=== PATIENT | female | born 1935 | race Caucasian/White ===

== ENCOUNTER → 2016-05-07 | Outpatient (CLI) | payer BC ==
[~2016-05-07] MED LIST: ALBUAER19 INH; AMR2 PO; ASPCH81 PO; ATOR-26 PO; CARV6.252 PO; CLOP1TAB15 PO; COEN1CAP28 PO; EVER10TA PO; EXEM1TAB PO; EXEN0.048 SC; FRS/40 PO; GLC/500 PO; INSU1.2I SQ; ISOS120T5 PO; LEVO150T9 PO; LOSA1TAB38 PO; MELATAB2 PO; METH10TA6 PO; MULT-506 PO; NTRSLP4 SL; OMEP40CA PO; PENT400T2 PO; SENNTAB23 PO
[2016-05-07 13:54] LABS: BASO % 0.4 %; BASO ABS # 0.04 K/uL (0-0.2); COMPLETE YES; EOS % 1.9 %; HEMATOCRIT 38.6 % (37-47); IG% 0.1 %; LYMPH % 22.5 %; LYMPH ABS # 2.01 K/uL (1.2-3.4); MEAN CELL VOLUME 88.7 fL (80-100); MEAN CORPUSCULAR HEMOGLOBIN 28.5 pg (25-34); MEAN CORPUSCULAR HGB CONC 32.1 g/dl (32-36); NEUT % 70.1 %; PLATELET COUNT 236 K/uL (130-400); RED BLOOD COUNT 4.35 M/uL (4.2-5.4); WHITE BLOOD COUNT 8.95 K/uL (4.8-10.8)
[2016-05-07 14:00] LABS: INR 1.2 (0.9-1.1); PARTIAL THROMBOPLASTIN RATIO 1.1; PROTHROMBIN TIME (PATIENT) 13.2 SECONDS (9.0-12.0)
[2016-05-07 14:03] LABS: ESTIMATED AVERAGE GLUCOSE 197 mg/dl; HA1C FLAG Normal (Normal)
[2016-05-07 14:21] LABS: ALT/SGPT 23 U/L (12-78); BLOOD UREA NITROGEN 36 mg/dl (7-18); BUN/CREATININE RATIO 33.1 (10-20); CARBON DIOXIDE 29 mmol/L (21-32); CHLORIDE 102 mmol/L (98-107); CHOLESTEROL 94 mg/dl (0-200); CHOLESTEROL/HDL RATIO 2.7; GLUCOSE 100 mg/dl (70-99); HDL CHOLESTEROL 35 mg/dl; LDL CHOLESTEROL CALCULATED 35 mg/dl; SODIUM 141 mmol/L (136-145); TRIGLYCERIDES 118 mg/dl (0-150); URIC ACID 7.2 mg/dl (2.6-7.2); VERY LOW DENSITY LIPOPROT CALC 24 mg/dl
[2016-05-07 14:29] LABS: ALB/GLOB RATIO 1.1 (0.9-2); ALKALINE PHOSPHATASE 71 U/L (45-117); AST/SGOT 16 U/L (15-37); PHOSPHORUS 2.9 mg/dl (2.5-4.9)
[2016-05-08 10:36] LABS: C-REACTIVE PROT HIGHSEN 0.7 MG/L
--- NOTE | 2016-05-11 12:05 | CODING QUERY MEDICAL NECESSITY ---
CQSUPPORTING DIAGNOSIS NEEDED A supporting diagnosis is required for the test/procedure performed on this patient in order for us to be reimbursed by the patient's insurance. Please provide a supporting diagnosis for the following test/procedure listed below next to the test name along with your signature. *If there is no additional diagnosis for this patient that would support the following test/procedure please document that below next to the test/procedure. Test(s)/Procedure(s) that require a supporting diagnosis: DOS 05/07/16 C-REACTIVE PROTEIN HIGH SENSITIVITY TEST Provider Signature: Date: Thank you Bree Carlos Health Information Management Once completed, please kindly fax back to [phone] For questions please call [phone]
== END | disposition home or self-care (01) ==
LOC: C.LABBC 10:36
PROVIDERS: ATTEND Family Medicine
DX: Z01.818 Encounter for other preprocedural examination (principal); R73.09 Other abnormal glucose; E55.9 Vitamin D deficiency, unspecified; D51.9 Vitamin B12 deficiency anemia, unspecified; E11.9 Type 2 diabetes mellitus without complications

== ENCOUNTER → 2016-06-21 | Outpatient (CLI) | payer BC | END | disposition home or self-care (01) | LOC: C.LABSPEC 15:05 | PROVIDERS: ATTEND Family Medicine | DX: R31.9 Hematuria, unspecified (principal) ==

== ENCOUNTER → 2016-07-25 | Outpatient (CLI) | payer BC ==
[~2016-07-25] MED LIST changes: +OPTIRAY 320 IV PRN
--- NOTE | 2016-07-25 14:19 | DIAGNOSTIC IMAGING REPORT ---
CT OF THE ABDOMEN AND PELVIS WITH CONTRAST CLINICAL HISTORY: Breast cancer with bone metastases. COMPARISON STUDY: CT of the abdomen and pelvis and whole-body bone scan January 18, 2016. TECHNIQUE: Following IV administration of 94 mL of Optiray-320, axial images of the abdomen and pelvis were obtained from the lung bases to the proximal femurs. Images were reviewed in the axial, sagittal, and coronal planes. IV contrast was administered without complication. Oral contrast was administered. FINDINGS: The chest will be reported separately. The liver, spleen, adrenal glands, kidneys and pancreas are unremarkable. There is no evidence for a bowel obstruction. There is sigmoid diverticulosis without evidence for acute diverticulitis. There is a moderate amount of stool within the colon. No ascites is present. A 2.1 cm lytic lesion with thin sclerotic rim within the left iliac bone is similar to exam of January 18, 2016. This is new since a CT of November 05, 2012. A few additional scattered tiny sclerotic foci remain unchanged. No new bony lesions are identified. IMPRESSION: 1. No change in the 2.1 cm lytic left iliac bone lesion since CT of January 18, 2016. This suggests a metastasis. A few additional tiny sclerotic lesions are unchanged and remain indeterminate. 2. No evidence for progressive metastatic disease within the abdomen or pelvis. Electronically signed by: Nash Ambriz M.D. 07/25/2016 2:16 PM Dictated Date/Time: 07/25/2016 2:06 PM
--- NOTE | 2016-07-25 14:24 | DIAGNOSTIC IMAGING REPORT ---
CT OF THE CHEST WITH IV CONTRAST CLINICAL HISTORY: Metastatic breast carcinoma. COMPARISON STUDY: 01/18/2016 TECHNIQUE: Following the IV administration of 94 mL of Optiray-320, CT of the thorax was performed from the thoracic inlet to the lung bases. Images are reviewed in the axial, sagittal, and coronal planes. IV contrast was administered without complication. CT DOSE: 996.49 mGy.cm FINDINGS: Thyroid: Imaged portions of the thyroid gland are normal in appearance. Thoracic aorta: The thoracic aorta is normal in course and caliber, noting standard 3-vessel arch anatomy. No aneurysm or dissection is seen. Pulmonary vasculature: The pulmonary trunk is normal in caliber. There are no central filling defects identified to suggest pulmonary embolus. Note that this examination was not protocoled for the evaluation of pulmonary emboli. HEART: There are coronary artery calcifications present. Lungs and pleural spaces: There is a stable 7 mm right middle lobe opacity which is flat on the reformatted images. This abuts the minor fissure. This is not felt to be of clinical significance. There is no focal pulmonary consolidation. There is minor basilar atelectatic change. There are few stable calcified granulomas. Mediastinum: Mediastinal lymph nodes remain at the upper limits of normal in size Rae: There is no pathologic hilar adenopathy Axilla: There are postsurgical changes of a left mastectomy. There is no axillary lymphadenopathy Upper abdomen: Partially visualized upper abdominal viscera is within normal limits. Skeletal structures: There is a stable mixed lytic and sclerotic lesion of the right third rib. There is a stable L1 vertebral body hemangioma IMPRESSION: 1. Stable mixed lytic and blastic right third rib lesion. 2. No change the preceding study. No evidence of progressive metastatic disease. Electronically signed by: Tanner Boss M.D. 07/25/2016 2:22 PM Dictated Date/Time: 07/25/2016 2:15 PM
--- NOTE | 2016-07-26 08:14 | DIAGNOSTIC IMAGING REPORT ---
WHOLE-BODY NUCLEAR BONE SCAN CLINICAL HISTORY: Breast cancer. Known osseous metastatic disease. COMPARISON STUDY: Nuclear bone scan dated 01/18/2016. CT scan of the chest, abdomen, and pelvis dated 07/25/2016. TECHNIQUE: Three hours following the IV administration of 27.2 mCi of technetium 99m MDP, whole body nuclear bone scan was performed in the anterior and posterior projections. FINDINGS: A right third rib lesion remains intensely tracer avid. A subtle lesion is also identified within the left iliac wing. No additional foci of abnormal osseous deposition identified typical in appearance for bony metastatic disease. Typically degenerative uptake is identified in the shoulders, sternoclavicular joints, hips, knees, and ankles. Low level spinal activity is also typical in appearance for degenerative change. There is expected excreted activity within the renal collecting system and bladder. A photopenic defect overlying the left lower chest likely representing a breast prosthesis. IMPRESSION: 1. A right third rib lesion remains intensely tracer avid. 2. An additional tracer avid lesion is seen within the left iliac wing. 3. No additional foci of metastatic activity are clearly visualized. Electronically signed by: Jimmie Brand M.D. 07/26/2016 8:12 AM Dictated Date/Time: 07/26/2016 7:59 AM
== END | disposition home or self-care (01) ==
LOC: C.CTS 11:08
PROVIDERS: ATTEND Internal Medicine Hematology & Oncology
DX: C50.911 Malignant neoplasm of unspecified site of right female breast (principal); C79.51 Secondary malignant neoplasm of bone

== ENCOUNTER → 2016-11-15 | Outpatient (CLI) | payer BC ==
[~2016-11-15] MED LIST changes: -OPTIRAY 320 IV PRN
[2016-11-15 13:21] LABS: BASO % 0.4 %; BASO ABS # 0.04 K/uL (0-0.2); COMPLETE YES; EOS % 2.1 %; HEMATOCRIT 34.2 % (37-47); IG% 0.1 %; LYMPH % 22.1 %; LYMPH ABS # 2.16 K/uL (1.2-3.4); MEAN CELL VOLUME 93.2 fL (80-100); MEAN CORPUSCULAR HEMOGLOBIN 30.5 pg (25-34); MEAN CORPUSCULAR HGB CONC 32.7 g/dl (32-36); MONO % 5.1 %; NEUT % 70.2 %; PLATELET COUNT 270 K/uL (130-400); RED BLOOD COUNT 3.67 M/uL (4.2-5.4); WHITE BLOOD COUNT 9.79 K/uL (4.8-10.8)
[2016-11-15 14:02] LABS: ESTIMATED AVERAGE GLUCOSE 171 mg/dl; HA1C FLAG Normal (Normal)
[2016-11-15 14:41] LABS: ALT/SGPT 22 U/L (12-78); BLOOD UREA NITROGEN 28 mg/dl (7-18); BUN/CREATININE RATIO 20.2 (10-20); CALCIUM 8.9 mg/dl (8.5-10.1); CARBON DIOXIDE 28 mmol/L (21-32); CHLORIDE 101 mmol/L (98-107); CHOLESTEROL 75 mg/dl (0-200); GLUCOSE 276 mg/dl (70-99); POTASSIUM 4.6 mmol/L (3.5-5.1); SODIUM 136 mmol/L (136-145); TRIGLYCERIDES 127 mg/dl (0-150); URIC ACID 8.1 mg/dl (2.6-7.2); VERY LOW DENSITY LIPOPROT CALC 25 mg/dl
[2016-11-15 14:50] LABS: ALKALINE PHOSPHATASE 81 U/L (45-117); AST/SGOT 10 U/L (15-37); CHOLESTEROL/HDL RATIO 2.6; HDL CHOLESTEROL 29 mg/dl; LDL CHOLESTEROL CALCULATED 21 mg/dl; TOTAL IRON BINDING CAPACITY 305 mcg/dl (250-450)
== END | disposition home or self-care (01) ==
LOC: C.LABBC 09:22
PROVIDERS: ATTEND Family Medicine
DX: R73.09 Other abnormal glucose (principal); E55.9 Vitamin D deficiency, unspecified; D51.9 Vitamin B12 deficiency anemia, unspecified; E78.9 Disorder of lipoprotein metabolism, unspecified; R53.83 Other fatigue

== ENCOUNTER → 2017-02-04 | Outpatient (CLI) | payer BC ==
--- NOTE | 2017-02-05 07:47 | MAMMOGRAPHY REPORT ---
UNILATERAL RIGHT DIGITAL SCREENING MAMMOGRAM TOMOSYNTHESIS WITH CAD: 02/04/2017 CLINICAL HISTORY: Asymptomatic. Personal history of breast cancer. TECHNIQUE: Right breast tomosynthesis in addition to standard 2D mammography was performed. Current jennie juarez was also evaluated with a Computer Aided Detection (CAD) system. COMPARISON: Comparison is made to exams dated: 02/02/2016 mammogram, 01/28/2015 mammogram, 01/27/2014 mammogram, 01/26/2013 mammogram, 01/24/2012 mammogram, and 01/22/2011 mammogram - [facility]. BREAST COMPOSITION: The tissue of the right breast is extremely dense, which lowers the sensitivity of mammography. FINDINGS: There are mild vascular calcifications and other scattered stable punctate and coarse calc ifications in the right breast. No new suspicious mass, architectural distortion or cluster of microc alcifications is seen. IMPRESSION: ACR BI-RADS CATEGORY 2: BENIGN There is no mammographic evidence of malignancy. A 1 year screening mammogram is recommended. The pa tient will receive written notification of the results. Approximately 10% of breast cancers are not detected with mammography. A negative mammographic report should not delay biopsy if a clinically suggestive mass is present. Vero Jordan M.D. ay/:02/04/2017 16:57:26 Plate Slitter And Inspector: Arlene ARCE)(Sanchez), [facility] letter sent: Normal 1/2 BI-RADS Code: ACR BI-RADS Category 2: Benign
== END | disposition home or self-care (01) ==
LOC: C.MAMM 09:32
PROVIDERS: ATTEND Internal Medicine Hematology & Oncology
DX: Z12.31 Encounter for screening mammogram for malignant neoplasm of breast (principal); Z85.3 Personal history of malignant neoplasm of breast

== ENCOUNTER → 2017-02-18 | Outpatient (CLI) | payer BC ==
--- NOTE | 2017-02-18 13:39 | DIAGNOSTIC IMAGING REPORT ---
BONE SCAN WHOLE BODY CLINICAL HISTORY: BREAST CANCER COMPARISON STUDY: 07/25/2016 FINDINGS: The patient was injected with 27 mCi of technetium 99m MDP. Three-hour delayed whole body images were acquired. There are persistent foci of increased activity within the left supra-acetabular region. There is a focus of increased activity within the right posterior chest, likely localized to the right third rib although a medial scapular lesion could appear similar. Foci of increased activity within the right medial arm are felt to represent soft tissue activity secondary to tracer activity within either with static or venous structures. IMPRESSION: Persistent foci of increased activity within the right chest wall (third rib level), and left supra-acetabular region. The findings are consistent with metastatic disease, similar to the preceding examination. Electronically signed by: Tanner Boss M.D. 02/18/2017 1:37 PM Dictated Date/Time: 02/18/2017 1:32 PM
== END | disposition home or self-care (01) ==
LOC: C.NUCL 08:57
PROVIDERS: ATTEND Internal Medicine Hematology & Oncology
DX: C50.911 Malignant neoplasm of unspecified site of right female breast (principal)

== ENCOUNTER → 2017-02-19 | Outpatient (CLI) | payer BC ==
[~2017-02-19] MED LIST changes: +OPTIRAY 320 IV PRN
--- NOTE | 2017-02-19 16:55 | DIAGNOSTIC IMAGING REPORT ---
(CHEST) THORAX WITH CT DOSE: HISTORY: Breast carcinoma BREAST CA TECHNIQUE: Multiaxial CT images of the chest were performed following the intravenous administration of contrast. A dose lowering technique was utilized adhering to the principles of ALARA. COMPARISON: 07/25/2016 FINDINGS: Stable mixed lytic or blastic lesion right third rib. This shows no change in extent size or configuration. There are no new or interval findings. There are degenerative changes of the thoracic spine. Minimal scattered micronodularity of the right as well as left chest are noted. Findings are unchanged. There is no evidence for new interval or progressive nodular process. There is no significant mediastinal or hilar adenopathy. Limited evaluation the upper abdomen is unremarkable. IMPRESSION: 1. Unchanged metastatic deposit right third rib. 2. Unchanging micronodule of the the lungs. 3. Otherwise negative study. The above report was generated using voice recognition software. It may contain grammatical, syntax or spelling errors. Electronically signed by: Williams Deal M.D. 02/19/2017 4:54 PM Dictated Date/Time: 02/19/2017 4:27 PM
--- NOTE | 2017-02-19 19:00 | DIAGNOSTIC IMAGING REPORT ---
CT OF THE ABDOMEN AND PELVIS WITH CONTRAST CLINICAL HISTORY: Breast cancer. Follow-up study. COMPARISON STUDY: CT of the abdomen and pelvis July 25, 2016. TECHNIQUE: Following IV administration of 116 mL of Optiray-320, axial images of the abdomen and pelvis were obtained from the lung bases to the proximal femurs. Images were reviewed in the axial, sagittal, and coronal planes. IV contrast was administered without complication. A dose lowering technique was utilized adhering to the principles of ALARA. Oral contrast was administered. CT DOSE: 1333.81 mGy.cm FINDINGS: The chest will be reported separately. The liver, some spleen, adrenal glands, kidneys and pancreas are unremarkable. There is no biliary or pancreatic ductal dictation. There is extensive atherosclerotic plaque of the abdominal aorta. There is suspected adenomyomatosis of the gallbladder fundus. No enlarged abdominal or pelvic lymph nodes are present. There is no evidence for a bowel obstruction. There is sigmoid diverticulosis without evidence for acute diverticulitis. A 2.1 cm lytic lesion with sclerotic rim within the left iliac bone remains unchanged and prior exam of July 25, 2016. No new osseous lesions are present. A few additional tiny sclerotic lesions are unchanged. IMPRESSION: 1. No change in a 2.1 cm left iliac bone lesion. This may reflect treated metastatic disease. 2. No evidence for progressive metastatic disease within the abdomen or pelvis. Electronically signed by: Nash Ambriz M.D. 02/19/2017 6:59 PM Dictated Date/Time: 02/19/2017 4:36 PM
== END | disposition home or self-care (01) ==
LOC: C.CTS 15:23
PROVIDERS: ATTEND Internal Medicine Hematology & Oncology
DX: C50.911 Malignant neoplasm of unspecified site of right female breast (principal)

== ENCOUNTER → 2017-04-18 | Outpatient (CLI) | payer BC ==
[~2017-04-18] MED LIST changes: -OPTIRAY 320 IV PRN
[2017-04-18 12:05] LABS: URIC ACID 10.8 mg/dl (2.6-7.2)
[2017-04-18 12:24] LABS: HEMOGLOBIN A1C 8.3 % (4.5-5.6)
== END | disposition home or self-care (01) ==
LOC: C.LAB 09:09
PROVIDERS: ATTEND Family Medicine
DX: E88.81 Metabolic syndrome and other insulin resistance (principal); E55.9 Vitamin D deficiency, unspecified; D51.9 Vitamin B12 deficiency anemia, unspecified; E78.9 Disorder of lipoprotein metabolism, unspecified; R53.83 Other fatigue

== ENCOUNTER 2020-05-13 14:01 | Inpatient (IN) ==
--- NOTE | 2020-05-13 16:29 | Emergency Department Note ---
History of Present Illness General Chief complaint: Shortness of Breath/Dyspnea Stated complaint: SOB STOMACH PAIN Time Seen by Provider: 05/13/20 15:54 Source: patient Mode of arrival: ambulatory Limitations: no limitations History of Present Illness Provider complaint: Shortness of breath, increasing cough, urinary symptoms Onset (ago): week(s) 3 Radiation: non-radiation Severity: moderate Pain Consistency: + colicky Relieved By: + none Exacerbated By: + none Associated symptoms: + cough and + shortness of breath; no chest pain, no fever/chills, no loss of appetite and no nausea/vomiting Treatments prior to arrival: none This an 84-year-old female presents emergency department with several complain ts. Patient states over the last 3 weeks she has had worsening shortness of breath, particular with exertion as well as an increased cough. Patient states she initially thought it was related to choking while drinking a cup of coffee several weeks ago and irritating her upper airways. She states she has had prior issues with choking. She states the exertion has been worse, no other change with position. She denies fevers or chills. Denies any change in the color of her sputum. Patient denies any coming chest pain or palpitations. Patient states she is had some intermittent lower abdominal pressure, dysuria, and residual urinary cloudiness. Patient states last week she was started on a course of antibiotics which she finished the beginning of this week, however she states she still has residual symptoms. Patient does have a prior history of breast cancer. Patient denies any concern for sick contact or exposure to coronavirus. Patient denies any change in her medications. Pt seen during a time of high acuity and national emergency pandemic while wearing PPE. Home Medications Medication Instructions Recorded Confirmed Type Xarelto 15 mg PO QPM #30 tab 12/02/17 05/13/20 Rx albuterol sulfate 1.25 mg INH Q6H PRN #90 ml 12/02/17 05/13/20 Rx clopidogrel 75 mg tablet 75 mg PO QPM #90 tab 12/11/18 05/13/20 History fluticasone 232 mcg-salmeterol 14 1 puffs INHALATION QPM #1 ea 12/11/18 05/13/20 History mcg/actuation breath activated powdr multivitamin 1 tab PO DAILY 12/11/18 05/13/20 History pramipexole 0.25 mg tablet 0.25 mg PO QPM tab 12/11/18 05/13/20 History albuterol sulfate 90 mcg/actuation 2 puffs INHALATION Q4H PRN #1 gm 02/18/19 05/13/20 History aerosol inhaler coenzyme Q10 100 mg capsule 100 mg PO DAILY cap 02/18/19 05/13/20 History denosumab 120 mg/1.7 mL (70 mg/mL) 120 mg SUBCUT MONTHLY ml 02/18/19 05/13/20 History subcutaneous solution docusate sodium 100 mg capsule 100 mg PO DAILY cap 02/18/19 05/13/20 History exemestane 25 mg tablet 25 mg PO QAM tab 02/18/19 05/13/20 History insulin aspart U-100 100 unit/mL See Rx Instructions SUBCUT 02/18/19 05/13/20 History subcutaneous solution .COMPLEX ml isosorbide mononitrate 120 mg 120 mg PO QAM #90 tab 02/18/19 05/13/20 History tablet,extended release 24 hr levothyroxine 125 mcg tablet 125 mcg PO QAM #90 tab 02/18/19 05/13/20 History losartan 100 mg tablet 100 mg PO QAM #90 tab 02/18/19 05/13/20 History melatonin 5 mg capsule 5 mg PO QPM PRN cap 02/18/19 05/13/20 History nebivolol 10 mg tablet 10 mg PO QPM tab 02/18/19 05/13/20 History nitroglycerin 0.4 mg sublingual 0.4 mg SL Q5M PRN #25 tab 02/18/19 05/13/20 History tablet cholecalciferol (vitamin D3) 25 1,000 units PO DAILY 02/23/19 05/13/20 History mcg (1,000 unit) capsule triamcinolone acetonide 0.1 % 1 appln TOP DAILY 06/08/19 05/13/20 History lotion spironolactone 25 mg tablet 25 mg PO DAILY tab 08/19/19 05/13/20 History clobetasol 0.05 % shampoo 1 appln TOP DAILY PRN 10/07/19 05/13/20 History clobetasol 0.05 % topical cream 1 appln TOP UD 10/07/19 05/13/20 History bumetanide 2 mg tablet 2 mg PO DAILY 01/01/20 05/13/20 History glimepiride 4 mg tablet 4 mg PO BID tab 01/01/20 05/13/20 History ketoconazole 2 % shampoo 1 applic TOPICAL DAILY ml 01/01/20 05/13/20 History pantoprazole 40 mg tablet,delayed 40 mg PO DAILY 02/10/20 05/13/20 History release sucralfate 100 mg/mL oral 10 ml PO UD PRN ml 02/10/20 05/13/20 History suspension Calcium Carbonate-Mag Chloride 1 tab PO BID 05/13/20 05/13/20 History atorvastatin [Lipitor] 40 mg PO DAILY 05/13/20 05/13/20 History fluticasone propionate [Flonase 1 sprays INTNAS BID PRN 05/13/20 05/13/20 History Allergy Relief] Allergies Allergy/AdvReac Type Severity Reaction Status Date / Time cat dander Allergy Intermediate itching Verified 05/13/20 17:05 eyes, blisters pseudoephedrine AdvReac Intermediate Hallucinati Verified 05/13/20 17:05 ons Past Med/Surg History Medical History Acute kidney injury Asthma USES PRN INH BID ON AVERAGE Atrial fibrillation DX 2017 - ON XARELTO - FOLLOWS W/ DR. TIPTON Atrial flutter with rapid ventricular response Breast cancer REPORTS RECENT REOCCURRENCE OF BREAST CANCER TO RT BREAST 2006 - LEFT MASTECTOMY + CHEMO/RADIATION Chronic anticoagulation Chronic kidney disease, stage III (moderate) DM type 2 (diabetes mellitus, type 2) IDDM - pt has insulin pump Hyperlipidemia Hypertension Hypothyroidism Osteoarthritis Port-A-Cath in place Rhabdomyolysis Urinary leakage Surgical History History of appendectomy History of breast biopsy History of cardiac cath 2017 - CP - [facility] - 2 STENTS - FOLLOWS W/ DR. TIPTON History of carpal tunnel release of both wrists History of colonoscopy History of heart artery stent X 2 (2017) History of left mastectomy pt denies limb restrictions History of tonsillectomy and adenoidectomy History of total abdominal hysterectomy and bilateral salpingo-oophorectomy Family History Father Myocardial infarction Other No family history of adverse response to anesthesia Social History Smoking Status: Never smoker Second Hand Exposure: Yes (FATHER SMOKED); Hx Alcohol Use: No Hx Substance Use: No Preferred Language: Algerian Communication Ability: Effective Account Officer Required: No Beliefs That Will Affect Care: None marital status: / Current Living Situation: Alone Feels Safe at Home: Yes Safety Concerns: Feels Safe At This Time Assistive Devices: Glasses Assistive Devices Comment: lower partial Review of Systems See HPI for pertinent positives & negatives. and A total of 10 systems reviewed and were otherwise negative Physical Exam Vital Signs Vital Signs - 24 hr 05/13/20 14:14 05/13/20 14:17 05/13/20 16:12 Temperature 36.6 C Temperature Source Temporal Artery Scan Pulse Rate 75 71 Pulse Rate [Apical] Pulse Rate [Exercises] Pulse Rate [Recovery] Pulse Rate [Resting] Pulse Rate from SpO2 Sensor 71 Respiratory Rate 20 17 Respiratory Rate [Exercises] Respiratory Rate [Recovery] Respiratory Rate [Resting] Respiratory Effort / Characteristics Non-Labored Spontaneous Non-Labored Respiratory Depth Normal Normal Respiratory Pattern Regular Blood Pressure 175/70 H 150/71 H Blood Pressure Mean 105 97 Pulse Oximetry 97 98 Pulse Oximetry [Exercises] Pulse Oximetry [Recovery] Pulse Oximetry [Resting] Oxygen Delivery Method Room Air Room Air Sepsis Recent Fever Within 48 Hours No Sepsis New/Unexplained Change in Mental Status No Sepsis Action Taken by Nursing No Action Required 05/13/20 16:14 05/13/20 16:18 05/13/20 16:30 Temperature Temperature Source Pulse Rate 71 69 Pulse Rate [Apical] Pulse Rate [Exercises] Pulse Rate [Recovery] Pulse Rate [Resting] Pulse Rate from SpO2 Sensor 72 69 Respiratory Rate 16 17 Respiratory Rate [Exercises] Respiratory Rate [Recovery] Respiratory Rate [Resting] Respiratory Effort / Characteristics Respiratory Depth Respiratory Pattern Blood Pressure 151/95 H Blood Pressure Mean 113 Pulse Oximetry 97 98 96 Pulse Oximetry [Exercises] Pulse Oximetry [Recovery] Pulse Oximetry [Resting] Oxygen Delivery Method Room Air Sepsis Recent Fever Within 48 Hours Sepsis New/Unexplained Change in Mental Status Sepsis Action Taken by Nursing 05/13/20 17:10 05/13/20 17:30 05/13/20 18:08 Temperature Temperature Source Pulse Rate 73 67 Pulse Rate [Apical] Pulse Rate [Exercises] 80 Pulse Rate [Recovery] 78 Pulse Rate [Resting] 72 Pulse Rate from SpO2 Sensor Respiratory Rate 18 21 Respiratory Rate [Exercises] 28 H Respiratory Rate [Recovery] 22 Respiratory Rate [Resting] 20 Respiratory Effort / Characteristics Respiratory Depth Respiratory Pattern Blood Pressure Blood Pressure Mean Pulse Oximetry Pulse Oximetry [Exercises] 94 Pulse Oximetry [Recovery] 93 Pulse Oximetry [Resting] 96 Oxygen Delivery Method Room Air Sepsis Recent Fever Within 48 Hours Sepsis New/Unexplained Change in Mental Status Sepsis Action Taken by Nursing 05/13/20 18:12 05/13/20 18:24 05/13/20 18:26 Temperature Temperature Source Pulse Rate 74 74 Pulse Rate [Apical] 78 Pulse Rate [Exercises] Pulse Rate [Recovery] Pulse Rate [Resting] Pulse Rate from SpO2 Sensor 75 75 Respiratory Rate 20 16 21 Respiratory Rate [Exercises] Respiratory Rate [Recovery] Respiratory Rate [Resting] Respiratory Effort / Characteristics Non-Labored Spontaneous Respiratory Depth Respiratory Pattern Blood Pressure 149/89 H Blood Pressure Mean 109 Pulse Oximetry 97 96 94 Pulse Oximetry [Exercises] Pulse Oximetry [Recovery] Pulse Oximetry [Resting] Oxygen Delivery Method Room Air Sepsis Recent Fever Within 48 Hours Sepsis New/Unexplained Change in Mental Status Sepsis Action Taken by Nursing GENERAL: alert, well appearing, well nourished, no distress, non-toxic EYE EXAM: normal conjunctiva, PERRL and EOM's grossly intact OROPHARYNX: no exudate, no erythema, lips, buccal mucosa, and tongue normal and mucous membranes are moist NECK: supple, no nuchal rigidity, no adenopathy, non-tender LUNGS: Clear to auscultation. Normal chest wall mechanics, no w/r/r HEART: no murmurs, S1 normal and S2 normal ABDOMEN: abdomen soft, non-tender, normo-active bowel sounds, no masses, no rebound or guarding. BACK: Back is symmetrical on inspection and there is no deformity, no midline tenderness, no CVA tenderness. SKIN: no rashes and no bruising UPPER EXTREMITIES: upper extremities are grossly normal. FROM, nml pulses b/l. LOWER EXTREMITIES: No pitting edema. FROM, nml pulses b/l. NEURO EXAM: Normal sensorium, cranial nerves II-XII grossly intact, normal speech, no gross weakness of arms, no gross weakness of legs. Gross sensation intact. Course Course 1701: Review of EMR, recent urine culture revealed Klebsiella in her urine culture. 1732: Patient updated on additional results. Patient states she did have an echo last year. On review of EMR, patient underwent an echo August 2019, results were reassuring. Patient does follow with Dr. Tipton due to history of coronary artery disease status post OR. Patient denies missing any doses of her antic oagulation. 1828: On ambulatory trial here, patient became significantly tachypneic with reported shortness of breath and obvious increased work of breathing to respiratory rate of between 28 and 30. Patient was not overtly hypoxic, did drop to the low 90s. Patient reported that a nebulizer treatment did not help. 184: Case discussed with Dr. Romero. Administered Medications Atorvastatin Calcium (Atorvastatin 40 Mg Tab) 40 mg PO DAILY [facility] Stop: 06/13/20 08:59 Last Admin: 05/15/20 08:25 Dose: 40 mg Documented by: [id number] Admin: 05/14/20 07:42 Dose: 40 mg Documented by: [id number] Bumetanide (Bumetanide 1 Mg Tab) 2 mg PO DAILY [facility] Stop: 06/13/20 08:59 Last Admin: 05/15/20 08:25 Dose: 2 mg Documented by: [id number] Admin: 05/14/20 07:42 Dose: 2 mg Documented by: [id number] Clopidogrel Bisulfate (Clopidogrel Bisulfate 75 Mg Tab) 75 mg PO QPM [facility] Stop: 06/12/20 23:43 Last Admin: 05/14/20 22:14 Dose: 75 mg Documented by: [id number] Admin: 05/14/20 01:04 Dose: 75 mg Documented by: [id number] Docusate Sodium (Docusate Sodium 100 Mg Cap) 100 mg PO DAILY [facility] Stop: 06/13/20 08:59 Last Admin: 05/15/20 08:25 Dose: 100 mg Documented by: [id number] Admin: 05/14/20 09:06 Dose: 100 mg Documented by: [id number] Fluticasone/Vilanterol (Fluticasone/Vilanterol 100/25mcg 14 Puffs/Inhaler) 1 puffs INH QPM [facility] Stop: 06/13/20 00:29 Last Admin: 05/14/20 22:13 Dose: 1 puffs Documented by: [id number] Admin: 05/14/20 01:07 Dose: 1 puffs Documented by: [id number] Methylprednisolone 30 mg/ (Syringe) 0.48 mls @ 1.5 mls/min IV Q12H [facility] Stop: 06/14/20 16:59 Last Admin: 05/15/20 17:02 Dose: 1.5 mls/min Documented by: [id number] Insulin Aspart (Insulin Aspart 100 Units/Ml 3 Ml Pen) 0 units SC ACHS [facility] Stop: 06/13/20 07:29 Last Admin: 05/15/20 17:02 Dose: 9 units Documented by: [id number] Cosigned by: [id number] Admin: 05/15/20 12:03 Dose: 23 units Documented by: [id number] Cosigned by: [id number] Admin: 05/15/20 08:27 Dose: 10 units Documented by: [id number] Cosigned by: [id number] Admin: 05/14/20 22:17 Dose: 1 units Documented by: [id number] Cosigned by: [id number] Admin: 05/14/20 17:11 Dose: 5 units Documented by: [id number] Cosigned by: [id number] Admin: 05/14/20 12:37 Dose: 4 units Documented by: [id number] Cosigned by: [id number] Admin: 05/14/20 07:30 Dose: Not Given Documented by: [id number] Cosigned by: [id number] Ipratropium [place] (Ipratropium [place] Neb Soln 0.02% 2.5 Ml Vial) 0.5 mg INH Q6R [facility] Stop: 06/13/20 18:59 Last Admin: 05/15/20 19:33 Dose: 0.5 mg Documented by: [id number] Admin: 05/15/20 13:21 Dose: 0.5 mg Documented by: [id number] Admin: 05/15/20 07:05 Dose: 0.5 mg Documented by: [id number] Admin: 05/15/20 00:10 Dose: 0.5 mg Documented by: [id number] Admin: 05/14/20 19:06 Dose: 0.5 mg Documented by: [id number] Isosorbide Mononitrate (Isosorbide [place] Extended Rel 60 Mg Tabcr) 120 mg PO QAM [facility] Stop: 06/13/20 08:59 Last Admin: 05/15/20 08:25 Dose: 120 mg Documented by: [id number] Admin: 05/14/20 07:42 Dose: 120 mg Documented by: [id number] Levalbuterol HCl (Levalbuterol 1.25mg/0.5ml Neb) 1.25 mg INH Q6R [facility] Stop: 06/13/20 18:59 Last Admin: 05/15/20 19:33 Dose: 1.25 mg Documented by: [id number] Admin: 05/15/20 13:21 Dose: 1.25 mg Documented by: [id number] Admin: 05/15/20 07:05 Dose: 1.25 mg Documented by: [id number] Admin: 05/15/20 00:10 Dose: 1.25 mg Documented by: [id number] Admin: 05/14/20 19:06 Dose: 1.25 mg Documented by: [id number] Levothyroxine Sodium (Levothyroxine Sodium 125 Mcg Tablet) 125 mcg PO DAILYBB [facility] Stop: 06/13/20 06:29 Last Admin: 05/15/20 05:09 Dose: 125 mcg Documented by: [id number] Admin: 05/14/20 06:45 Dose: 125 mcg Documented by: [id number] Losartan Potassium (Losartan Potassium 50 Mg Tab) 100 mg PO QAM [facility] Stop: 06/13/20 08:59 Last Admin: 05/14/20 07:41 Dose: 100 mg Documented by: [id number] Metoprolol Tartrate (Metoprolol Tartrate 50 Mg Tab) 50 mg PO BID [facility] Stop: 06/13/20 00:29 Last Admin: 05/15/20 08:26 Dose: 50 mg Documented by: [id number] Admin: 05/14/20 22:15 Dose: 50 mg Documented by: [id number] Admin: 05/14/20 07:42 Dose: Not Given Documented by: [id number] Admin: 05/14/20 01:05 Dose: 50 mg Documented by: [id number] Miscellaneous (Exemestane~Order Awaiting Action) 1 ea N/A QS [facility] Stop: 06/13/20 00:29 Last Admin: 05/15/20 16:21 Dose: Not Given Documented by: [id number] Admin: 05/15/20 08:26 Dose: Not Given Documented by: [id number] Admin: 05/15/20 00:26 Dose: Not Given Documented by: [id number] Admin: 05/14/20 15:37 Dose: Not Given Documented by: [id number] Admin: 05/14/20 09:17 Dose: Not Given Documented by: [id number] Admin: 05/14/20 01:12 Dose: Not Given Documented by: [id number] Miscellaneous (Carbohydrates For Hypoglycemia ) 15 - 30 gm PO UD PRN PRN Reason: Hypoglycemia Protocol Stop: 06/12/20 23:43 Last Admin: 05/14/20 07:35 Dose: 15 gm Documented by: [id number] Multivitamins (Multivitamin Tab) 1 tab PO DAILY [facility] Stop: 06/13/20 08:59 Last Admin: 05/15/20 08:25 Dose: 1 tab Documented by: [id number] Admin: 05/14/20 07:40 Dose: 1 tab Documented by: [id number] Pantoprazole Sodium (Pantoprazole 40 Mg Tab) 40 mg PO DAILY [facility] Stop: 06/13/20 08:59 Last Admin: 05/15/20 08:25 Dose: 40 mg Documented by: [id number] Admin: 05/14/20 07:40 Dose: 40 mg Documented by: [id number] Pramipexole Dihydrochloride (Pramipexole Dihydrochlo 0.25 Mg Tab) 0.25 mg PO QPM [facility] Stop: 06/12/20 23:43 Last Admin: 05/14/20 22:13 Dose: 0.25 mg Documented by: [id number] Admin: 05/14/20 01:04 Dose: 0.25 mg Documented by: [id number] Rivaroxaban (Rivaroxaban 15 Mg Tab) 15 mg PO QPM [facility] Stop: 06/12/20 23:43 Last Admin: 05/14/20 22:14 Dose: 15 mg Documented by: [id number] Admin: 05/14/20 01:05 Dose: 15 mg Documented by: [id number] Spironolactone (Spironolactone 25 Mg Tab) 25 mg PO DAILY [facility] Stop: 06/13/20 08:59 Last Admin: 05/15/20 08:26 Dose: 25 mg Documented by: [id number] Admin: 05/14/20 09:06 Dose: 25 mg Documented by: [id number] Sucralfate (Sucralfate 1 Gm/10 Ml Udc) 1 gm PO AC [facility] Stop: 06/14/20 07:29 Last Admin: 05/15/20 17:03 Dose: 1 gm Documented by: [id number] Admin: 05/15/20 12:03 Dose: 1 gm Documented by: [id number] Admin: 05/15/20 08:27 Dose: 1 gm Documented by: [id number] Vitamin D (Cholecalciferol 1,000 Units 25 Mcg Tab) 1,000 units PO DAILY [facility] Stop: 06/13/20 08:59 Last Admin: 05/15/20 08:25 Dose: 1,000 units Documented by: [id number] Admin: 05/14/20 07:41 Dose: 1,000 units Documented by: [id number] Discontinued Medications Hydrocodone Bitart/Acetaminophen (Hydrocodone/Acetamophen 5/325mg Tab) 1 tab PO ONE ONE Stop: 05/15/20 11:41 Last Admin: 05/15/20 12:09 Dose: 1 tab Documented by: [id number] Albuterol (Albut/Ipratrop 3mg/0.5mg Neb 3 Ml Vial) 3 ml NEB NOW STA Stop: 05/13/20 17:35 Last Admin: 05/13/20 18:10 Dose: 3 ml Documented by: [id number] Benzonatate (Benzonatate 100 Mg Capsule) 100 mg PO TID [facility] Stop: 06/13/20 13:59 Last Admin: 05/14/20 13:49 Dose: 100 mg Documented by: [id number] Benzonatate (Benzonatate 100 Mg Capsule) 200 mg PO TID [facility] Stop: 06/13/20 20:59 Last Admin: 05/15/20 08:27 Dose: 200 mg Documented by: [id number] Admin: 05/14/20 22:15 Dose: 200 mg Documented by: [id number] Bumetanide (Bumetanide 1 Mg Tab) 1 mg PO NOW ONE Stop: 05/14/20 16:15 Last Admin: 05/14/20 17:09 Dose: 1 mg Documented by: [id number] Colchicine (Colchicine 0.6 Mg Tab) 0.6 mg PO NOW ONE Stop: 05/15/20 11:40 Last Admin: 05/15/20 12:10 Dose: 0.6 mg Documented by: [id number] Guaifenesin (Guaifenesin 600 Mg Tabcr) 1,200 mg PO Q12 [facility] Stop: 06/13/20 13:09 Last Admin: 05/15/20 08:25 Dose: 1,200 mg Documented by: [id number] Admin: 05/14/20 22:14 Dose: 1,200 mg Documented by: [id number] Admin: 05/14/20 13:49 Dose: 1,200 mg Documented by: [id number] Ceftriaxone Sodium (Rocephin) 2,000 mg in 70 mls @ 140 mls/hr IV NOW STA Stop: 05/13/20 18:05 Last Infusion: 05/13/20 18:59 Dose: 0 mls/hr Documented by: [id number] Admin: 05/13/20 18:28 Dose: 140 mls/hr Documented by: [id number] Bumetanide 1 mg/ Syringe 4 mls @ 4 mls/min IV NOW ONE Stop: 05/13/20 20:31 Last Admin: 05/13/20 20:47 Dose: 4 mls/min Documented by: [id number] Ceftriaxone Sodium 2,000 mg/ (Dextrose) 70 mls @ 100 mls/hr IV Q24H [facility]; Protocol Stop: 05/19/20 17:59 Last Infusion: 05/14/20 19:03 Dose: 0 mls/hr Documented by: [id number] Admin: 05/14/20 18:19 Dose: 100 mls/hr Documented by: [id number] Methylprednisolone 40 mg/ (Syringe) 0.64 mls @ 1.5 mls/min IV Q12H [facility] Stop: 06/13/20 16:59 Last Admin: 05/15/20 05:08 Dose: 1.5 mls/min Documented by: [id number] Admin: 05/14/20 17:09 Dose: 1.5 mls/min Documented by: [id number] Insulin Human Regular 8 units/ (Syringe) 8 mls @ 30 mls/min IV TODAY@1200 ONE Stop: 05/15/20 12:01 Last Admin: 05/15/20 12:15 Dose: 30 mls/min Documented by: [id number] Cosigned by: [id number] Insulin Aspart (Novolog Insulin Pump) 1 ea N/A ACHS [facility] Stop: 06/12/20 23:43 Last Admin: 05/14/20 12:48 Dose: Not Given Documented by: [id number] Cosigned by: [id number] Admin: 05/14/20 09:16 Dose: Not Given Documented by: [id number] Cosigned by: [id number] Admin: 05/14/20 01:15 Dose: Not Given Documented by: [id number] Cosigned by: [id number] Insulin Glargine (Insulin Glargine Solostar 100 Units/Ml 3 Ml Pen) 5 units SC ONE ONE; Protocol Stop: 05/14/20 21:31 Last Admin: 05/14/20 22:16 Dose: 5 units Documented by: [id number] Cosigned by: [id number] Insulin Glargine (Insulin Glargine Solostar 100 Units/Ml 3 Ml Pen) 25 units SC ONE ONE Stop: 05/15/20 09:11 Last Admin: 05/15/20 09:44 Dose: 25 units Documented by: [id number] Cosigned by: [id number] Insulin Glargine (Insulin Glargine Solostar 100 Units/Ml 3 Ml Pen) 10 units SC ONE ONE; Protocol Stop: 05/15/20 12:01 Last Admin: 05/15/20 12:11 Dose: 10 units Documented by: [id number] Cosigned by: [id number] Ioversol (Ioversol 100ml) 94 ml IV ONCE ONE Stop: 05/13/20 17:01 Last Admin: 05/13/20 17:00 Dose: 94 ml Documented by: [id number] Medical Decision Making Differential Diagnosis Differential diagnoses includes but is not limited to pneumonia, bronchitis, COPD/Asthma exacerbation, pneumothorax, pulmonary embolism, congestive heart failure, acute coronary syndrome Medical Records Attestation: I reviewed the patient's medical records. Home Medications Current Medication List: was personally reviewed by me Laboratory Data Attestation: I reviewed the patient's lab results. Result diagrams: 05/15/20 06:18 05/15/20 06:18 Lab Results 05/13/20 05/13/20 05/13/20 Range/Units 16:11 16:11 16:11 WBC 12.55 H (4.8-10.8) K/uL RBC 3.31 L (4.2-5.4) M/uL Hgb 9.9 L (12.0-16.0) g/dL Hct 30.6 L (37-47) % MCV 92.4 (80-100) fL MCH 29.9 (25-34) pg MCHC 32.4 (32-36) g/dL RDW Std Deviation 57.5 H (36.4-46.3) fL RDW Coeff of Oj 17.1 H (11.5-14.5) % Plt Count 242 (130-400) K/uL MPV 10.7 H (7.4-10.4) fL Immature Gran % (Auto) 0.2 % Neut % (Auto) 74.7 % Lymph % (Auto) 16.3 % [place] % (Auto) 7.0 % Eos % (Auto) 1.5 % Baso % (Auto) 0.3 % Neut # (Auto) 9.37 H (1.4-6.5) K/uL Lymph # (Auto) 2.04 (1.2-3.4) K/uL [place] # (Auto) 0.88 H (0.11-0.59) K/uL Eos # (Auto) 0.19 (0-0.5) K/uL Baso # (Auto) 0.04 (0-0.2) K/uL Immature Gran # (Auto) 0.03 H (0.00-0.02) K/uL PT Cancelled INR Cancelled APTT (21.0-31.0) Seconds PTT Ratio Sodium 137 (136-145) mmol/L Potassium 5.0 (3.5-5.1) mmol/L Chloride 103 (98-107) mmol/L Carbon Dioxide 27 (21-32) mmol/L Anion Gap 7.0 (3-11) BUN 77 H (7-18) mg/dl Creatinine 2.49 H (0.6-1.2) mg/dl Est Cr Clr Drug Dosing Not Reportable Est GFR ( Amer) 20.0 Est GFR (Non-Af Amer) 17.3 BUN/Creatinine Ratio 31.0 H (10-20) Glucose 127 H (70-99) mg/dl POC Glucose (70-99) mg/dl Calcium 8.6 (8.5-10.1) mg/dl Magnesium 3.5 H (1.8-2.4) mg/dl Total Bilirubin 0.5 (0.2-1) mg/dl AST 9 L (15-37) U/L ALT 24 (12-78) U/L Alkaline Phosphatase 90 (45-117) U/L Troponin I < 0.015 (0-0.045) ng/ml NT-Pro-B Natriuret Pep 1646 (0-1800) pg/ml Total Protein 7.8 (6.4-8.2) gm/dl Albumin 4.0 (3.4-5.0) gm/dl Globulin 3.8 (2.5-4.0) gm/dl Albumin/Globulin Ratio 1.1 (0.9-2) Lipase 377 (73-393) U/L Urine Color Urine Appearance (Clear) Urine pH (4.5-7.5) Ur Specific [place] (1.000-1.030) Urine Protein (Negative) Urine Glucose (UA) (Negative) Urine Ketones (Negative) Urine Blood (Negative) Urine Nitrite (Negative) Urine Bilirubin (Negative) Urine Urobilinogen (Negative) Ur Leukocyte Esterase (Negative) Urine WBC (Auto) (0-5) /hpf Urine RBC (Auto) (0-4) /hpf U Hyaline Cast (Auto) (0-5) /lpf U Epithel Cells (Auto) (0-5) /lpf Urine Bacteria (Auto) (Negative) COVID-19 Eval Order SARS-CoV-2 (PCR) (Negative) Influenza Type A (PCR) (Neg) Influenza Type B (PCR) (Neg) RSV (RT-PCR) (Neg) 05/13/20 05/13/20 05/13/20 Range/Units 16:11 17:40 18:25 WBC (4.8-10.8) K/uL RBC (4.2-5.4) M/uL Hgb (12.0-16.0) g/dL Hct (37-47) % MCV (80-100) fL MCH (25-34) pg MCHC (32-36) g/dL RDW Std Deviation (36.4-46.3) fL RDW Coeff of Oj (11.5-14.5) % Plt Count (130-400) K/uL MPV (7.4-10.4) fL Immature Gran % (Auto) % Neut % (Auto) % Lymph % (Auto) % [place] % (Auto) % Eos % (Auto) % Baso % (Auto) % Neut # (Auto) (1.4-6.5) K/uL Lymph # (Auto) (1.2-3.4) K/uL [place] # (Auto) (0.11-0.59) K/uL Eos # (Auto) (0-0.5) K/uL Baso # (Auto) (0-0.2) K/uL Immature Gran # (Auto) (0.00-0.02) K/uL PT 12.4 H INR 1.2 H APTT 25.9 (21.0-31.0) Seconds PTT Ratio 1.0 Sodium (136-145) mmol/L Potassium (3.5-5.1) mmol/L Chloride (98-107) mmol/L Carbon Dioxide (21-32) mmol/L Anion Gap (3-11) BUN (7-18) mg/dl Creatinine (0.6-1.2) mg/dl Est Cr Clr Drug Dosing Est GFR ( Amer) Est GFR (Non-Af Amer) BUN/Creatinine Ratio (10-20) Glucose (70-99) mg/dl POC Glucose (70-99) mg/dl Calcium (8.5-10.1) mg/dl Magnesium (1.8-2.4) mg/dl Total Bilirubin (0.2-1) mg/dl AST (15-37) U/L ALT (12-78) U/L Alkaline Phosphatase (45-117) U/L Troponin I (0-0.045) ng/ml NT-Pro-B Natriuret Pep (0-1800) pg/ml Total Protein (6.4-8.2) gm/dl Albumin (3.4-5.0) gm/dl Globulin (2.5-4.0) gm/dl Albumin/Globulin Ratio (0.9-2) Lipase (73-393) U/L Urine Color Yellow Urine Appearance Cloudy A (Clear) Urine pH 6.5 (4.5-7.5) Ur Specific [place] 1.011 (1.000-1.030) Urine Protein Negative (Negative) Urine Glucose (UA) Negative (Negative) Urine Ketones Negative (Negative) Urine Blood 2+ H (Negative) Urine Nitrite Negative (Negative) Urine Bilirubin Negative (Negative) Urine Urobilinogen Negative (Negative) Ur Leukocyte Esterase 3+ H (Negative) Urine WBC (Auto) >30 H (0-5) /hpf Urine RBC (Auto) 10-30 H (0-4) /hpf U Hyaline Cast (Auto) 1-5 (0-5) /lpf U Epithel Cells (Auto) 0-5 (0-5) /lpf Urine Bacteria (Auto) 1+ H (Negative) COVID-19 Eval [address] CovFluRsv at [facility] SARS-CoV-2 (PCR) (Negative) Influenza Type A (PCR) (Neg) Influenza Type B (PCR) (Neg) RSV (RT-PCR) (Neg) 05/13/20 05/14/20 05/14/20 Range/Units 18:25 00:08 05:46 WBC 8.58 (4.8-10.8) K/uL RBC 3.25 L (4.2-5.4) M/uL Hgb 9.5 L (12.0-16.0) g/dL Hct 29.8 L (37-47) % MCV 91.7 (80-100) fL MCH 29.2 (25-34) pg MCHC 31.9 L (32-36) g/dL RDW Std Deviation 56.9 H (36.4-46.3) fL RDW Coeff of Oj 17.0 H (11.5-14.5) % Plt Count 199 (130-400) K/uL MPV 10.0 (7.4-10.4) fL Immature Gran % (Auto) 0.2 % Neut % (Auto) 71.1 % Lymph % (Auto) 17.5 % [place] % (Auto) 8.5 % Eos % (Auto) 2.4 % Baso % (Auto) 0.3 % Neut # (Auto) 6.09 (1.4-6.5) K/uL Lymph # (Auto) 1.50 (1.2-3.4) K/uL [place] # (Auto) 0.73 H (0.11-0.59) K/uL Eos # (Auto) 0.21 (0-0.5) K/uL Baso # (Auto) 0.03 (0-0.2) K/uL Immature Gran # (Auto) 0.02 (0.00-0.02) K/uL PT INR APTT (21.0-31.0) Seconds PTT Ratio Sodium (136-145) mmol/L Potassium (3.5-5.1) mmol/L Chloride (98-107) mmol/L Carbon Dioxide (21-32) mmol/L Anion Gap (3-11) BUN (7-18) mg/dl Creatinine (0.6-1.2) mg/dl Est Cr Clr Drug Dosing Est GFR ( Amer) Est GFR (Non-Af Amer) BUN/Creatinine Ratio (10-20) Glucose (70-99) mg/dl POC Glucose 121 H (70-99) mg/dl Calcium (8.5-10.1) mg/dl Magnesium (1.8-2.4) mg/dl Total Bilirubin (0.2-1) mg/dl AST (15-37) U/L ALT (12-78) U/L Alkaline Phosphatase (45-117) U/L Troponin I (0-0.045) ng/ml NT-Pro-B Natriuret Pep (0-1800) pg/ml Total Protein (6.4-8.2) gm/dl Albumin (3.4-5.0) gm/dl Globulin (2.5-4.0) gm/dl Albumin/Globulin Ratio (0.9-2) Lipase (73-393) U/L Urine Color Urine Appearance (Clear) Urine pH (4.5-7.5) Ur Specific [place] (1.000-1.030) Urine Protein (Negative) Urine Glucose (UA) (Negative) Urine Ketones (Negative) Urine Blood (Negative) Urine Nitrite (Negative) Urine Bilirubin (Negative) Urine Urobilinogen (Negative) Ur Leukocyte Esterase (Negative) Urine WBC (Auto) (0-5) /hpf Urine RBC (Auto) (0-4) /hpf U Hyaline Cast (Auto) (0-5) /lpf U Epithel Cells (Auto) (0-5) /lpf Urine Bacteria (Auto) (Negative) COVID-19 Eval Order SARS-CoV-2 (PCR) NEGATIVE (Negative) Influenza Type A (PCR) Negative (Neg) Influenza Type B (PCR) Negative (Neg) RSV (RT-PCR) Negative (Neg) 05/14/20 05/14/20 05/14/20 Range/Units 05:46 07:30 07:31 WBC (4.8-10.8) K/uL RBC (4.2-5.4) M/uL Hgb (12.0-16.0) g/dL Hct (37-47) % MCV (80-100) fL MCH (25-34) pg MCHC (32-36) g/dL RDW Std Deviation (36.4-46.3) fL RDW Coeff of Oj (11.5-14.5) % Plt Count (130-400) K/uL MPV (7.4-10.4) fL Immature Gran % (Auto) % Neut % (Auto) % Lymph % (Auto) % [place] % (Auto) % Eos % (Auto) % Baso % (Auto) % Neut # (Auto) (1.4-6.5) K/uL Lymph # (Auto) (1.2-3.4) K/uL [place] # (Auto) (0.11-0.59) K/uL Eos # (Auto) (0-0.5) K/uL Baso # (Auto) (0-0.2) K/uL Immature Gran # (Auto) (0.00-0.02) K/uL PT INR APTT (21.0-31.0) Seconds PTT Ratio Sodium 140 (136-145) mmol/L Potassium 4.3 (3.5-5.1) mmol/L Chloride 105 (98-107) mmol/L Carbon Dioxide 30 (21-32) mmol/L Anion Gap 5.0 (3-11) BUN 77 H (7-18) mg/dl Creatinine 2.19 H D (0.6-1.2) mg/dl Est Cr Clr Drug Dosing 20.5 Est GFR ( Amer) 23.4 Est GFR (Non-Af Amer) 20.2 BUN/Creatinine Ratio 34.9 H (10-20) Glucose 55 L (70-99) mg/dl POC Glucose 56 L* 58 L* (70-99) mg/dl Calcium 8.3 L (8.5-10.1) mg/dl Magnesium 3.6 H (1.8-2.4) mg/dl Total Bilirubin (0.2-1) mg/dl AST (15-37) U/L ALT (12-78) U/L Alkaline Phosphatase (45-117) U/L Troponin I (0-0.045) ng/ml NT-Pro-B Natriuret Pep (0-1800) pg/ml Total Protein (6.4-8.2) gm/dl Albumin (3.4-5.0) gm/dl Globulin (2.5-4.0) gm/dl Albumin/Globulin Ratio (0.9-2) Lipase (73-393) U/L Urine Color Urine Appearance (Clear) Urine pH (4.5-7.5) Ur Specific [place] (1.000-1.030) Urine Protein (Negative) Urine Glucose (UA) (Negative) Urine Ketones (Negative) Urine Blood (Negative) Urine Nitrite (Negative) Urine Bilirubin (Negative) Urine Urobilinogen (Negative) Ur Leukocyte Esterase (Negative) Urine WBC (Auto) (0-5) /hpf Urine RBC (Auto) (0-4) /hpf U Hyaline Cast (Auto) (0-5) /lpf U Epithel Cells (Auto) (0-5) /lpf Urine Bacteria (Auto) (Negative) COVID-19 Eval Order SARS-CoV-2 (PCR) (Negative) Influenza Type A (PCR) (Neg) Influenza Type B (PCR) (Neg) RSV (RT-PCR) (Neg) 05/14/20 05/14/20 05/14/20 Range/Units 07:46 07:50 11:29 WBC (4.8-10.8) K/uL RBC (4.2-5.4) M/uL Hgb (12.0-16.0) g/dL Hct (37-47) % MCV (80-100) fL MCH (25-34) pg MCHC (32-36) g/dL RDW Std Deviation (36.4-46.3) fL RDW Coeff of Oj (11.5-14.5) % Plt Count (130-400) K/uL MPV (7.4-10.4) fL Immature Gran % (Auto) % Neut % (Auto) % Lymph % (Auto) % [place] % (Auto) % Eos % (Auto) % Baso % (Auto) % Neut # (Auto) (1.4-6.5) K/uL Lymph # (Auto) (1.2-3.4) K/uL [place] # (Auto) (0.11-0.59) K/uL Eos # (Auto) (0-0.5) K/uL Baso # (Auto) (0-0.2) K/uL Immature Gran # (Auto) (0.00-0.02) K/uL PT INR APTT (21.0-31.0) Seconds PTT Ratio Sodium (136-145) mmol/L Potassium (3.5-5.1) mmol/L Chloride (98-107) mmol/L Carbon Dioxide (21-32) mmol/L Anion Gap (3-11) BUN (7-18) mg/dl Creatinine (0.6-1.2) mg/dl Est Cr Clr Drug Dosing Est GFR ( Amer) Est GFR (Non-Af Amer) BUN/Creatinine Ratio (10-20) Glucose (70-99) mg/dl POC Glucose 63 L* 70 133 H (70-99) mg/dl Calcium (8.5-10.1) mg/dl Magnesium (1.8-2.4) mg/dl Total Bilirubin (0.2-1) mg/dl AST (15-37) U/L ALT (12-78) U/L Alkaline Phosphatase (45-117) U/L Troponin I (0-0.045) ng/ml NT-Pro-B Natriuret Pep (0-1800) pg/ml Total Protein (6.4-8.2) gm/dl Albumin (3.4-5.0) gm/dl Globulin (2.5-4.0) gm/dl Albumin/Globulin Ratio (0.9-2) Lipase (73-393) U/L Urine Color Urine Appearance (Clear) Urine pH (4.5-7.5) Ur Specific [place] (1.000-1.030) Urine Protein (Negative) Urine Glucose (UA) (Negative) Urine Ketones (Negative) Urine Blood (Negative) Urine Nitrite (Negative) Urine Bilirubin (Negative) Urine Urobilinogen (Negative) Ur Leukocyte Esterase (Negative) Urine WBC (Auto) (0-5) /hpf Urine RBC (Auto) (0-4) /hpf U Hyaline Cast (Auto) (0-5) /lpf U Epithel Cells (Auto) (0-5) /lpf Urine Bacteria (Auto) (Negative) COVID-19 Eval Order SARS-CoV-2 (PCR) (Negative) Influenza Type A (PCR) (Neg) Influenza Type B (PCR) (Neg) RSV (RT-PCR) (Neg) 05/14/20 Range/Units 16:30 WBC (4.8-10.8) K/uL RBC (4.2-5.4) M/uL Hgb (12.0-16.0) g/dL Hct (37-47) % MCV (80-100) fL MCH (25-34) pg MCHC (32-36) g/dL RDW Std Deviation (36.4-46.3) fL RDW Coeff of Oj (11.5-14.5) % Plt Count (130-400) K/uL MPV (7.4-10.4) fL Immature Gran % (Auto) % Neut % (Auto) % Lymph % (Auto) % [place] % (Auto) % Eos % (Auto) % Baso % (Auto) % Neut # (Auto) (1.4-6.5) K/uL Lymph # (Auto) (1.2-3.4) K/uL [place] # (Auto) (0.11-0.59) K/uL Eos # (Auto) (0-0.5) K/uL Baso # (Auto) (0-0.2) K/uL Immature Gran # (Auto) (0.00-0.02) K/uL PT INR APTT (21.0-31.0) Seconds PTT Ratio Sodium (136-145) mmol/L Potassium (3.5-5.1) mmol/L Chloride (98-107) mmol/L Carbon Dioxide (21-32) mmol/L Anion Gap (3-11) BUN (7-18) mg/dl Creatinine (0.6-1.2) mg/dl Est Cr Clr Drug Dosing Est GFR ( Amer) Est GFR (Non-Af Amer) BUN/Creatinine Ratio (10-20) Glucose (70-99) mg/dl POC Glucose 71 (70-99) mg/dl Calcium (8.5-10.1) mg/dl Magnesium (1.8-2.4) mg/dl Total Bilirubin (0.2-1) mg/dl AST (15-37) U/L ALT (12-78) U/L Alkaline Phosphatase (45-117) U/L Troponin I (0-0.045) ng/ml NT-Pro-B Natriuret Pep (0-1800) pg/ml Total Protein (6.4-8.2) gm/dl Albumin (3.4-5.0) gm/dl Globulin (2.5-4.0) gm/dl Albumin/Globulin Ratio (0.9-2) Lipase (73-393) U/L Urine Color Urine Appearance (Clear) Urine pH (4.5-7.5) Ur Specific [place] (1.000-1.030) Urine Protein (Negative) Urine Glucose (UA) (Negative) Urine Ketones (Negative) Urine Blood (Negative) Urine Nitrite (Negative) Urine Bilirubin (Negative) Urine Urobilinogen (Negative) Ur Leukocyte Esterase (Negative) Urine WBC (Auto) (0-5) /hpf Urine RBC (Auto) (0-4) /hpf U Hyaline Cast (Auto) (0-5) /lpf U Epithel Cells (Auto) (0-5) /lpf Urine Bacteria (Auto) (Negative) COVID-19 Eval Order SARS-CoV-2 (PCR) (Negative) Influenza Type A (PCR) (Neg) Influenza Type B (PCR) (Neg) RSV (RT-PCR) (Neg) Imaging Data Radiologist's Impression: CT OF THE CHEST WITH IV CONTRAST CLINICAL HISTORY: Shortness of breath. Cough. COMPARISON STUDY: 02/16/2020 TECHNIQUE: Following the IV administration of 94 mL of Optiray-320, CT of the thorax was performed from the thoracic inlet to the lung bases. Images are reviewed in the axial, sagittal, and coronal planes. IV contrast was administered without complication. A dose lowering technique was utilized adhering to the principles of ALARA. CT DOSE: 1456.40 mGy.cm FINDINGS: Thyroid: Imaged portions of the thyroid gland are normal in appearance. Thoracic aorta: The thoracic aorta is normal in course and caliber, noting standard 3-vessel arch anatomy. No aneurysm or dissection is seen. Pulmonary vasculature: The pulmonary trunk is normal in caliber. There are no central filling defects identified to suggest pulmonary embolus. Note that this examination was not protocoled for the evaluation of pulmonary emboli. HEART: There are coronary artery calcifications. There is no pericardial effusion. Lungs and pleural spaces: There are no pleural effusions. There is minimal subpleural septal edema. There is no lobar consolidation. There is stable 7 mm right middle lobe. Fissural nodule. There are a few scattered there are scatter ed pulmonary micronodules, likely postinflammatory. Mediastinum: There is no evidence of pathologic mediastinal lymphadenopathy Rae: There is no evidence of pathologic hilar lymphadenopathy. Axilla: There is no evidence of pathologic axillary lymphadenopathy Upper abdomen: Partially visualized upper abdominal viscera is within normal limits. Skeletal structures: There are postsurgical changes of a left mastectomy. There is a left chest wall seroma. There is an old lower thoracic compression deformity. 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 IMPRESSION: 1. 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 No evidence of pathologic adenopathy 3. Minimal subpleural septal edema 4. There is no evidence of focal pulmonary consolidation to indicate a pneumonia ACT 112: Negative or not required by law. Electronically signed by: Tanner Boss M.D. 05/13/2020 5:[address] abd pelvis IV con only CLINICAL HISTORY: Abdominal pain and UTI. Cough. Shortness of breath. COMPARISON STUDY: 02/16/2020 TECHNIQUE: Patient was scanned in a dynamic helical fashion during intravenous administration of 94 cc of Optiray 320. A dose lowering technique was utilized adhering to the principles of ALARA. CT DOSE: FINDINGS: Lower chest: The patient appears be status post a prior left mastectomy. There is mild pulmonary septal edema. There are a few scattered tree-in-bud nodules, likely infectious/inflammatory Liver: The contrast-enhanced liver is normal in size, contour, and attenuation. There is no intrahepatic biliary ductal dilatation. The hepatic veins and portal veins are patent. Gallbladder: No stones are visualized. There is minimal pericholecystic edema. The gallbladder is not distended. Spleen: Normal in size and attenuation. Pancreas: Unremarkable. Adrenal glands: Unremarkable. Kidneys: There is symmetric renal cortical enhancement. The kidneys are normal in size without hydronephrosis. Bowel: There are no transition zones to indicate bowel obstruction. There is c olonic diverticulosis. There is no evidence of acute diverticulitis. By history the appendix is surgically absent. Peritoneum: There is no intraperitoneal free air or abdominal ascites. Vasculature: The abdominal aorta is normal in course and caliber. Adenopathy: None. Pelvic viscera: The uterus is surgically absent. There is mild bladder wall thickening and mild infiltration of the surrounding fat. Clinical correlation with regards to a cystitis is recommended Skeletal structures: No destructive osseous lesions are seen. There are old rib deformities. IMPRESSION: 1. No evidence of bowel obstruction. No evidence of free air 2. Diverticulosis. No evidence of acute diverticulitis 3. Mild bladder wall thickening with mild infiltration of the surrounding fat. Clinical correlation with regards to a cystitis is recommended 4. Mild pericholecystic edema. No gallbladder distention. No calculi visualized. ACT 112: Negative or not required by law. Electronically signed by: Tanner Boss M.D. 05/13/2020 5:19 PM ECG Data Attestation: I personally reviewed and interpreted this ECG as follows: Indication: + SOB/dyspnea Rate (beats per minute): 68 Rhythm: + normal sinus ECG Intervals/blocks: + Normal QRS and + Normal QT ECG Independence: + Normal ECG ST segments: + Normal ST segments Blood Pressure Blood Pressure Findings: Elevated blood pressure Blood Pressure Disposition: further management by hospitalist MDM Narrative THis is an 84 yo female who presents with worsening MEJIA over the last 3 weeks. Pt concerned for heart related condition vs aspiration after a choking episode 3 weeks ago. WAs treated as an outpt for URI recently but no significant improvement. Pt odes have a hx of malignancy and hx a known rib lesions, denies missing any doses of her anticoagulation. VS stable at rest, however pt profoundly dyspneic with exertion and report difficulty with ADL's at this point due to SOB. No over hypoxia. Mild LE edema but no evidence of overt CHF. I did review prior echo and note from cardiology. Labs sent and were reassuring, pt sent for imaging due to concern for multiple pathology and malignancy hi story. Given possible underlying cardiac etiology, case discussed with hospitalist for additional evaluation and mgmt. Pt aware of all results and in agreement with the plan. Pt with CKD also and recent UTI with failed outpt tx with macrobid. Pt given IV rocephin in ER. I do not suspect pyelonephritis, bacteremia/sepsis. An order was placed for continuous cardiac monitoring. The monitor shows a rate of 70_ with _normal sinus_ rhythm. Impression & Plan Dyspnea on exertion, Hypertension, Acute UTI (urinary tract infection), CKD (chronic kidney disease) Discharge Plan Visit Data Chief Complaint: Shortness of Breath/Dyspnea Stated Complaint: SOB STOMACH PAIN ED Provider: Nory Woods Discharge Problem: Dyspnea on exertion, Hypertension, Acute UTI (urinary tract infection), CKD (chronic kidney disease) Patient Disposition: Admitted As Inpatient Discharge Instructions Interventions: ED Discharge Assessment Last Done: 05/13/20 22:22 Discharge Problem: Hypertension Qualifiers: Hypertension type: unspecified Qualified Code(s): I10 - Essential (primary) hypertension CKD (chronic kidney disease) Qualifiers: Chronic kidney disease stage: unspecified stage Qualified Code(s): N18.9 - Chronic kidney disease, unspecified
[2020-05-13 16:46] LABS: Basophils # (auto) 0.04 K/uL (0-0.2); Basophils % (auto) 0.3 %; Eosinophils # (auto) 0.19 K/uL (0-0.5); Eosinophils % (auto) 1.5 %; Hematocrit (blood only) 30.6 % (37-47); Hemoglobin 9.9 g/dL (12.0-16.0); Immature Granulocytes # (auto) 0.03 K/uL (0.00-0.02); Immature Granulocytes % (auto) 0.2 %; Lymphocytes # (auto) 2.04 K/uL (1.2-3.4); Lymphocytes % (auto) 16.3 %; Mean Corpuscular Hemoglobin 29.9 pg (25-34); Mean Corpuscular Hgb Conc 32.4 g/dL (32-36); Mean Corpuscular Volume 92.4 fL (80-100); Mean Platelet Volume 10.7 fL (7.4-10.4); Monocytes # (auto) 0.88 K/uL (0.11-0.59); Neutrophils # (auto) 9.37 K/uL (1.4-6.5); Neutrophils % (auto) 74.7 %; Platelet Count 242 K/uL (130-400); RDW Coefficient of Variation 17.1 % (11.5-14.5); RDW Standard Deviation 57.5 fL (36.4-46.3); Red Blood Count 3.31 M/uL (4.2-5.4); White Blood Count 12.55 K/uL (4.8-10.8)
[2020-05-13 16:51] LABS: Appearance Urine Cloudy (Clear); Bacteria Urine Automated 1+ (Negative); Bilirubin Urine Negative (Negative); Blood Urine 2+ (Negative); Color Urine Yellow; Epithelial Cell Urine Auto 0-5 /lpf (0-5); Glucose Urine UA Negative (Negative); Ketones Urine Negative (Negative); Leukocyte Esterase Urine 3+ (Negative); Nitrite Urine Negative (Negative); Protein Urine Negative (Negative); Specific Gravity Urine 1.011 (1.000-1.030); Urobilinogen Urine Negative (Negative); WBC Urine Automated >30 /hpf (0-5); pH Urine 6.5 (4.5-7.5)
[2020-05-13] MEDS ORDERED: OPTIRAY 320 100ml IV ONE (17:00)
[2020-05-13 17:06] LABS: Alanine Aminotransferase 24 U/L (12-78); Aspartate Aminotransferase 9 U/L (15-37); Blood Urea Nitrogen 77 mg/dl (7-18); Calcium 8.6 mg/dl (8.5-10.1); Carbon Dioxide 27 mmol/L (21-32); Chloride 103 mmol/L (98-107); Est GFR (Non-African American) 17.3; Glucose 127 mg/dl (70-99); Lipase 377 U/L (73-393); Magnesium 3.5 mg/dl (1.8-2.4); Sodium 137 mmol/L (136-145)
[2020-05-13 17:11] LABS: Albumin Globulin Ratio 1.1 (0.9-2); Alkaline Phosphatase 90 U/L (45-117); Bilirubin,Total 0.5 mg/dl (0.2-1); Globulin 3.8 gm/dl (2.5-4.0); NT Pro B Type Natriuretic Pept 1646 pg/ml (0-1800); Total Protein 7.8 gm/dl (6.4-8.2); Troponin I < 0.015 ng/ml (0-0.045)
--- NOTE | 2020-05-13 17:19 | CT Scan Report ---
CT OF THE CHEST WITH IV CONTRAST CLINICAL HISTORY: Shortness of breath. Cough. COMPARISON STUDY: 02/16/2020 TECHNIQUE: Following the IV administration of 94 mL of Optiray-320, CT of the thorax was performed f rom the thoracic inlet to the lung bases. Images are reviewed in the axial, sagittal, and coronal sinan abhay. IV contrast was administered without complication. A dose lowering technique was utilized adher ing to the principles of ALARA. CT DOSE: 1456.40 mGy.cm FINDINGS: Thyroid: Imaged portions of the thyroid gland are normal in appearance. Thoracic aorta: The thoracic aorta is normal in course and caliber, noting standard 3-vessel arch joe rufino. No aneurysm or dissection is seen. Pulmonary vasculature: The pulmonary trunk is normal in caliber. There are no central filling defects identified to suggest pulmonary embolus. Note that this examination was not protocoled for the evalu ation of pulmonary emboli. HEART: There are coronary artery calcifications. There is no pericardial effusion. Lungs and pleural spaces: There are no pleural effusions. There is minimal subpleural septal edema. T here is no lobar consolidation. There is stable 7 mm right middle lobe. Fissural nodule. There are a few scattered there are scattered pulmonary micronodules, likely postinflammatory. Mediastinum: There is no evidence of pathologic mediastinal lymphadenopathy Rae: There is no evidence of pathologic hilar lymphadenopathy. Axilla: There is no evidence of pathologic axillary lymphadenopathy Upper abdomen: Partially visualized upper abdominal viscera is within normal limits. Skeletal structures: There are postsurgical changes of a left mastectomy. There is a left chest wall seroma. There is an old lower thoracic compression deformity. There is an expansile mixed sclerotic r ight third rib lesion, likely representing a treated metastasis. IMPRESSION: 1. 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 No evidence of pathologic adenopathy 3. Minimal subpleural septal edema 4. There is no evidence of focal pulmonary consolidation to indicate a pneumonia ACT 112: Negative or not required by law. Electronically signed by: Tanner Boss M.D. 05/13/2020 5:18 PM
--- NOTE | 2020-05-13 17:20 | CT Scan Report ---
CT abd pelvis IV con only CLINICAL HISTORY: Abdominal pain and UTI. Cough. Shortness of breath. COMPARISON STUDY: 02/16/2020 TECHNIQUE: Patient was scanned in a dynamic helical fashion during intravenous administration of 94 c c of Optiray 320. A dose lowering technique was utilized adhering to the principles of ALARA. CT DOSE: FINDINGS: Lower chest: The patient appears be status post a prior left mastectomy. There is mild pulmonary sept al edema. There are a few scattered tree-in-bud nodules, likely infectious/inflammatory Liver: The contrast-enhanced liver is normal in size, contour, and attenuation. There is no intrahepa tic biliary ductal dilatation. The hepatic veins and portal veins are patent. Gallbladder: No stones are visualized. There is minimal pericholecystic edema. The gallbladder is not distended. Spleen: Normal in size and attenuation. Pancreas: Unremarkable. Adrenal glands: Unremarkable. Kidneys: There is symmetric renal cortical enhancement. The kidneys are normal in size without hydron ephrosis. Bowel: There are no transition zones to indicate bowel obstruction. There is colonic diverticulosis. There is no evidence of acute diverticulitis. By history the appendix is surgically absent. Peritoneum: There is no intraperitoneal free air or abdominal ascites. Vasculature: The abdominal aorta is normal in course and caliber. Adenopathy: None. Pelvic viscera: The uterus is surgically absent. There is mild bladder wall thickening and mild infil tration of the surrounding fat. Clinical correlation with regards to a cystitis is recommended Skeletal structures: No destructive osseous lesions are seen. There are old rib deformities. IMPRESSION: 1. No evidence of bowel obstruction. No evidence of free air 2. Diverticulosis. No evidence of acute diverticulitis 3. Mild bladder wall thickening with mild infiltration of the surrounding fat. Clinical correlation w ith regards to a cystitis is recommended 4. Mild pericholecystic edema. No gallbladder distention. No calculi visualized. ACT 112: Negative or not required by law. Electronically signed by: Tanner Boss M.D. 05/13/2020 5:19 PM
[2020-05-13] MEDS ORDERED: ALBUT/IPRATROP 3MG/0.5MG NEB 3 ML VIAL NEB STA (17:34)
[2020-05-13] MEDS ORDERED: cefTRIAXone SODIUM 2,000 MG/70 ML BAG IV STA (17:36)
[2020-05-13 18:08] LABS: INR 1.2 (0.9-1.1); Partial Thromboplastin Time 25.9 Seconds (21.0-31.0); Prothrombin Time 12.4 Seconds (9.0-12.0)
--- NOTE | 2020-05-13 19:23 | History & Physical Report ---
Date of Service May 13, 2020 Assessment & Plan (1) Dyspnea on exertion: Patient with chronic dyspnea with acute worsening - Primarily likely related to non compliance with her CPAP and worsening right sided failure secondary to likely pulmonary HTN - ECHO in morning estimate RVSP also evaluate heart function and valve - ECG normal troponin normal - BNP 1646 - Diurese to offload RV - CPAP at night AutoPap 8-12 CM H2O - COVID negative, Flu PCR negative - Continue management for PND - Weight loss and CPAP compliance (2) Chronic diastolic (congestive) heart failure: As above - BUMEX 1 mg IV tonight - Continue home medications, not an exacerbation - Readdress fluid volume status in the morning (3) CKD (chronic kidney disease): Acute kidney injury with CKD III - with UTI- Rocephin 1gm qd - Minimize nephrotoxic exposure - Continue inotropic and volume support (4) Acute UTI (urinary tract infection): As above- culture and sensitivities pending - no other signs of systemic infection (5) DM type 2 (diabetes mellitus, type 2): Insulin pump- Continue with self management, may also take sulfonylurea (6) Sleep apnea in adult: OLAF as above CPAP (7) Hyperlipidemia: Continue statin (8) Hypothyroidism: No acute needs, continue (9) Hypertension: As above, continue home medications - diurese - CPAP compliance (10) Cough: Continue well outlined plan from pulmonary - speech therapy consult in morning (11) Dysphagia: As above - last barium swallow 2017, consistent with dysmotility and small hiatal hernia with GERD - Continue Carafate and PPI - Repeat EGD as an outpatient (12) Paroxysmal atrial fibrillation: Currently in NSR, continue Xarelto - maintain electrolytes - Continue rate control agents History of Present Illness Primary Care Provider: Tanner López MD 84 YOF with past medical history of breast cancer with mets, HTN, [place] with stents, COPD, Hypothyroidism, DM II with insulin pump, OLAF with CPAP, chronic cough, dysphagia, afib, hfPRef, HLD, chronic back pain. Patient came to the ER today by herself for chief complaint of shortness of breath. The patient states that she has been increasingly short of breath for the past 3 weeks that got worse this week. She has been using her Albuterol inhalers 6-8 times per day and her nebulizer 4 times per day with no relief. She can walk up 5 stairs and has to take a break and then get to the top of her stairs and have to take a break again. She feels that between 5-10 minutes of rest she is able to get her breath back. She reports that she has not been using her CPAP for the past month or so and her last compliance report in May 2019 showed 43% use. She has been sleeping in her recliner at home as well, unclear if this is her dyspnea or cough causing this. She is followed closely with pulmonary for her chronic cough and breathlessness. Previously treated with antibiotics and prednisone in the past with minimal relief as well as Sudafed, chlorpheniramine, fluticasone, and nasal washings. Patient also experiences dysphagia with choking/coughing spells and has recently feels like she may have "aspirated her coffee". ECHO in August 2019 with EF 55-60% and moderate MR/TR. She feels as well that her legs are slightly more swollen than normal, but overall appears Euvolemic. Patient had a walk test while in the EMD and became quite dyspneic by the time she was out in the hallway. She did not experience any hypoxia. Patient is also experiencing suprapubic bladder discomfort which is worse when she is lying flat and reportedly was treated for UTI and appears to still have "dirty urine" and symptoms. Allergies Allergy/AdvReac Type Severity Reaction Status Date / Time cat dander Allergy Intermediate itching Verified 05/13/20 17:05 eyes, blisters pseudoephedrine AdvReac Intermediate Hallucinati Verified 05/13/20 17:05 ons Home Medications Medication Instructions Recorded Confirmed Type Xarelto 15 mg PO QPM #30 tab 12/02/17 05/13/20 Rx albuterol sulfate 1.25 mg INH Q6H PRN #90 ml 12/02/17 05/13/20 Rx clopidogrel 75 mg tablet 75 mg PO QPM #90 tab 12/11/18 05/13/20 History fluticasone 232 mcg-salmeterol 14 1 puffs INHALATION QPM #1 ea 12/11/18 05/13/20 History mcg/actuation breath activated powdr multivitamin 1 tab PO DAILY 12/11/18 05/13/20 History pramipexole 0.25 mg tablet 0.25 mg PO QPM tab 12/11/18 05/13/20 History albuterol sulfate 90 mcg/actuation 2 puffs INHALATION Q4H PRN #1 gm 02/18/19 05/13/20 History aerosol inhaler coenzyme Q10 100 mg capsule 100 mg PO DAILY cap 02/18/19 05/13/20 History denosumab 120 mg/1.7 mL (70 mg/mL) 120 mg SUBCUT MONTHLY ml 02/18/19 05/13/20 History subcutaneous solution docusate sodium 100 mg capsule 100 mg PO DAILY cap 02/18/19 05/13/20 History exemestane 25 mg tablet 25 mg PO QAM tab 02/18/19 05/13/20 History insulin aspart U-100 100 unit/mL See Rx Instructions SUBCUT 02/18/19 05/13/20 History subcutaneous solution .COMPLEX ml isosorbide mononitrate 120 mg 120 mg PO QAM #90 tab 02/18/19 05/13/20 History tablet,extended release 24 hr levothyroxine 125 mcg tablet 125 mcg PO QAM #90 tab 02/18/19 05/13/20 History losartan 100 mg tablet 100 mg PO QAM #90 tab 02/18/19 05/13/20 History melatonin 5 mg capsule 5 mg PO QPM PRN cap 02/18/19 05/13/20 History nebivolol 10 mg tablet 10 mg PO QPM tab 02/18/19 05/13/20 History nitroglycerin 0.4 mg sublingual 0.4 mg SL Q5M PRN #25 tab 02/18/19 05/13/20 History tablet cholecalciferol (vitamin D3) 25 1,000 units PO DAILY 02/23/19 05/13/20 History mcg (1,000 unit) capsule triamcinolone acetonide 0.1 % 1 appln TOP DAILY 06/08/19 05/13/20 History lotion spironolactone 25 mg tablet 25 mg PO DAILY tab 08/19/19 05/13/20 History clobetasol 0.05 % shampoo 1 appln TOP DAILY PRN 10/07/19 05/13/20 History clobetasol 0.05 % topical cream 1 appln TOP UD 10/07/19 05/13/20 History bumetanide 2 mg tablet 2 mg PO DAILY 01/01/20 05/13/20 History glimepiride 4 mg tablet 4 mg PO BID tab 01/01/20 05/13/20 History ketoconazole 2 % shampoo 1 applic TOPICAL DAILY ml 01/01/20 05/13/20 History pantoprazole 40 mg tablet,delayed 40 mg PO DAILY 02/10/20 05/13/20 History release sucralfate 100 mg/mL oral 10 ml PO UD PRN ml 02/10/20 05/13/20 History suspension Calcium Carbonate-Mag Chloride 1 tab PO BID 05/13/20 05/13/20 History atorvastatin [Lipitor] 40 mg PO DAILY 05/13/20 05/13/20 History fluticasone propionate [Flonase 1 sprays INTNAS BID PRN 05/13/20 05/13/20 History Allergy Relief] Past Med/Surg History Medical History Acute kidney injury Asthma USES PRN INH BID ON AVERAGE Atrial fibrillation DX 2017 - ON XARELTO - FOLLOWS W/ DR. JEONG Atrial flutter with rapid ventricular response Breast cancer REPORTS RECENT REOCCURRENCE OF BREAST CANCER TO RT BREAST 2006 - LEFT MASTECTOMY + CHEMO/RADIATION Chronic anticoagulation Chronic kidney disease, stage III (moderate) DM type 2 (diabetes mellitus, type 2) IDDM - pt has insulin pump Hyperlipidemia Hypertension Hypothyroidism Osteoarthritis Port-A-Cath in place Rhabdomyolysis Urinary leakage Surgical History History of appendectomy History of breast biopsy History of cardiac cath 2017 - - [facility] - 2 STENTS - FOLLOWS W/ DR. JEONG History of carpal tunnel release of both wrists History of colonoscopy History of heart artery stent X 2 (2017) History of left mastectomy pt denies limb restrictions History of tonsillectomy and adenoidectomy History of total abdominal hysterectomy and bilateral salpingo-oophorectomy Family History Father Myocardial infarction Other No family history of adverse response to anesthesia Social History Smoking Status: Never smoker Second Hand Exposure: Yes (FATHER SMOKED); Hx Alcohol Use: No Hx Substance Use: No Preferred Language: French Communication Ability: Effective Antique Refinisher Required: No Beliefs That Will Affect Care: None marital status: / Current Living Situation: Alone Feels Safe at Home: Yes Assistive Devices: Glasses Review of Systems Review of Systems: REVIEW OF SYSTEMS: Constitutional: No fever, sweats or chills, no sick contacts Eyes: No diplopia, no worsening or blurred vision ENT: normal hearing, no trouble swallowing Respiratory: (+) cough, sputum, dyspnea at rest and on exertion Cardiovascular: No chest pain, tightness or palpitations Abdomen: (+) pain, (-) nausea, vomiting, diarrhea or constipation Musculoskeletal: No joint pain, calf pain, swelling Neurologic: No weakness, numbness/tingling, or balance problems Psychiatric: No anxiety or depression Skin: No rash or itch Physical Exam Physical Exam: PHYSICAL EXAM: General: awake, alert, no apparent distress Head: Normocephalic, atraumatic ENT: PERRL, EOMI, no pharyngeal exudate, mucous membranes moist Neuro: AAO x 3, speech clear and appropriate, strength intact bilaterally 5/5, sensation intact and equal all extremities Chest: equal rise and fall of the chest, no accessory muscle use, no heaves or thrills, diminished in bases with fine crackles auscultation, on room air, Cardiac: Regular rate and rhythm, telemetry reviewed, skin warm dry, cap refill <3 seconds, peripheral pusles +2 no JVD, no murmur, no JVD, +2 edema to mid calf GI: NABS x 4 quadrants, soft, tender to palpation at suprapubic, no rebound, guarding or tenderness : Spontaneously voiding, dysruia, no CVA tenderness, Extremities: Normal inspection, or erythema, calfs nontender to palpation, some mild venous discoloration to bilateral lower ankles Psych: Normal mood and affect Skin: no rash or erythema Results & Data Results & Data ([facility]) Vital Signs (Past 12 Hours) Vital Signs Temp Pulse Pulse Pulse Pulse Pulse Resp 05/13/20 18:26 74 21 05/13/20 18:24 74 16 05/13/20 18:12 78 20 05/13/20 18:08 80 78 72 05/13/20 17:30 67 21 05/13/20 17:10 73 18 05/13/20 16:30 69 17 05/13/20 16:18 05/13/20 16:14 71 16 05/13/20 16:12 71 17 05/13/20 14:14 36.6 C 75 20 Resp Resp Resp BP Pulse Ox Pulse Ox Pulse Ox 05/13/20 18:26 94 05/13/20 18:24 149/89 H 96 05/13/20 18:12 97 05/13/20 18:08 28 H 22 20 94 93 05/13/20 17:30 05/13/20 17:10 05/13/20 16:30 151/95 H 96 05/13/20 16:18 98 05/13/20 16:14 97 05/13/20 16:12 150/71 H 98 05/13/20 14:14 175/70 H 97 Pulse Ox 05/13/20 18:26 05/13/20 18:24 05/13/20 18:12 05/13/20 18:08 96 05/13/20 17:30 05/13/20 17:10 05/13/20 16:30 05/13/20 16:18 05/13/20 16:14 05/13/20 16:12 05/13/20 14:[address] OF THE CHEST WITH IV CONTRAST CLINICAL HISTORY: Shortness of breath. Cough. COMPARISON STUDY: 02/16/2020 TECHNIQUE: Following the IV administration of 94 mL of Optiray-320, CT of the thorax was performed from the thoracic inlet to the lung bases. Images are reviewed in the axial, sagittal, and coronal planes. IV contrast was administered without complication. A dose lowering technique was utilized adhering to the principles of ALARA. CT DOSE: 1456.40 mGy.cm FINDINGS: Thyroid: Imaged portions of the thyroid gland are normal in appearance. Thoracic aorta: The thoracic aorta is normal in course and caliber, noting st andard 3-vessel arch anatomy. No aneurysm or dissection is seen. Pulmonary vasculature: The pulmonary trunk is normal in caliber. There are no central filling defects identified to suggest pulmonary embolus. Note that this examination was not protocoled for the evaluation of pulmonary emboli. HEART: There are coronary artery calcifications. There is no pericardial effusion. Lungs and pleural spaces: There are no pleural effusions. There is minimal subpleural septal edema. There is no lobar consolidation. There is stable 7 mm right middle lobe. Fissural nodule. There are a few scattered there are scattered pulmonary micronodules, likely postinflammatory. Mediastinum: There is no evidence of pathologic mediastinal lymphadenopathy Rae: There is no evidence of pathologic hilar lymphadenopathy. Axilla: There is no evidence of pathologic axillary lymphadenopathy Upper abdomen: Partially visualized upper abdominal viscera is within normal limits. Skeletal structures: There are postsurgical changes of a left mastectomy. There is a left chest wall seroma. There is an old lower thoracic compression deformity. 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 IMPRESSION: 1. 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 No evidence of pathologic adenopathy 3. Minimal subpleural septal edema 4. There is no evidence of focal pulmonary consolidation to indicate a pneumonia CT abd pelvis IV con only CLINICAL HISTORY: Abdominal pain and UTI. Cough. Shortness of breath. COMPARISON STUDY: 02/16/2020 TECHNIQUE: Patient was scanned in a dynamic helical fashion during intravenous administration of 94 cc of Optiray 320. A dose lowering technique was utilized adhering to the principles of ALARA. CT DOSE: FINDINGS: Lower chest: The patient appears be status post a prior left mastectomy. There is mild pulmonary septal edema. There are a few scattered tree-in-bud nodules, likely infectious/inflammatory Liver: The contrast-enhanced liver is normal in size, contour, and attenuation. There is no intrahepatic biliary ductal dilatation. The hepatic veins and portal veins are patent. Gallbladder: No stones are visualized. There is minimal pericholecystic edema. The gallbladder is not distended. Spleen: Normal in size and attenuation. Pancreas: Unremarkable. Adrenal glands: Unremarkable. Kidneys: There is symmetric renal cortical enhancement. The kidneys are normal in size without hydronephrosis. Bowel: There are no transition zones to indicate bowel obstruction. There is colonic diverticulosis. There is no evidence of acute diverticulitis. By history the appendix is surgically absent. Peritoneum: There is no intraperitoneal free air or abdominal ascites. Vasculature: The abdominal aorta is normal in course and caliber. Adenopathy: None. Pelvic viscera: The uterus is surgically absent. There is mild bladder wall thickening and mild infiltration of the surrounding fat. Clinical correlation with regards to a cystitis is recommended Skeletal structures: No destructive osseous lesions are seen. There are old rib deformities. IMPRESSION: 1. No evidence of bowel obstruction. No evidence of free air 2. Diverticulosis. No evidence of acute diverticulitis 3. Mild bladder wall thickening with mild infiltration of the surrounding fat. Clinical correlation with regards to a cystitis is recommended 4. Mild pericholecystic edema. No gallbladder distention. No calculi visualized. Medications Administered Discontinued Medications Albuterol (Albut/Ipratrop 3mg/0.5mg Neb 3 Ml Vial) 3 ml NEB NOW STA Stop: 05/13/20 17:35 Last Admin: 05/13/20 18:10 Dose: 3 ml Documented by: [id number] Ceftriaxone Sodium (Rocephin) 2,000 mg in 70 mls @ 140 mls/hr IV NOW STA Stop: 05/13/20 18:05 Last Infusion: 05/13/20 18:59 Dose: 0 mls/hr Documented by: [id number] Admin: 05/13/20 18:28 Dose: 140 mls/hr Documented by: [id number] Ioversol (Ioversol 100ml) 94 ml IV ONCE ONE Stop: 05/13/20 17:01 Last Admin: 05/13/20 17:00 Dose: 94 ml Documented by: [id number] ECG Additional Comments: Normal sinus rhythm Normal ECG When compared with ECG of 29-NOV-2017 18:12, Sinus rhythm has replaced Atrial flutter Vent. rate has decreased BY [address] no longer depressed in Lateral leads Inverted T waves have replaced nonspecific T wave abnormality in Inferior leads Nonspecific T wave abnormality no longer evident in Lateral leads Code Status & VTE Plan Code Status VTE: on Eliquis Code: Full VTE Prophylaxis Plan VTE Prophylaxis will be ordered: Yes Supervising Physician Co-Signing Physician Notes Patient was seen and examined independently I discussed the case with David COVINGTON I reviewed pertinent past medical social family history and also the plan of care and agree with the plan of care. Worsening shortness of breath preserved ejection fraction on echocardiogram concern for diastolic dysfunction or pulmonary hypertension. Patient recently has been using her CPAP at home. Clinically she only has very mild right-sided fluid on physical exam however she had a fairly complete evaluation in the emergency department for secondary causes of shortness of breath. She also does not become hypoxemic with this and she is Covid negative. Feeling this is probably pulmonary pretension right-sided failure however caution with elevated creatinine over her baseline. We will attempt to give diuresis to improve her symptom complex by reducing her preload. She will continue her medications for atrial fibrillation with rate control with nebivolol and anticoagulation with Xarelto. Most recent thyroid check was in July 2019 and was replete she continues on Synthroid therapy she is diabetic and has been on glyburide and an insulin pump at home by her home med rec Physical exam she does become dyspneic with mild movement she is morbidly obese however she has fairly clear lungs and exam her cardiac exam is rate controlled there is no significant murmurs her extremities are with trace peripheral edema JVD is difficult to assess given her neck anatomy Attempted diuresis with caution with acute kidney injury with chronic kidney disease stage III, noninvasive positive pressure ventilation, concerns for recent choking with drinking will have a speech evaluation Any exceptions will be noted below PG Care Time/CCT Total # of Minutes Spent Total Time Spent with Patient: Total time spent is greater than 50% in coordination of care (as documented) at patient's floor/unit and/or counseling patient: Coding Level of Care Code 61038 Initial Inpt Care Lvl 3 Diagnoses Dyspnea on exertion R06.09 Chronic diastolic (congestive) heart failure I50.32 CKD (chronic kidney disease) N18.9 Chronic kidney disease stage: unspecified stage Acute UTI (urinary tract infection) N39.0 DM type 2 (diabetes mellitus, type 2) E11.9 Chronic kidney disease stage: stage 3 (moderate) Diabetes mellitus complication detail: with chronic kidney disease Diabetes mellitus supervisor intermediates insulin use: with supervisor intermediates use Sleep apnea in adult G47.30 Hyperlipidemia E78.5 Hyperlipidemia type: unspecified Hypothyroidism E03.9 Hypothyroidism type: unspecified Hypertension I10 Hypertension type: unspecified Cough R05 Dysphagia R13.19 Dysphagia type: other dysphagia Paroxysmal atrial fibrillation I48.0 (1) DM type 2 (diabetes mellitus, type 2) Chronic kidney disease stage: stage 3 (moderate) Diabetes mellitus complication detail: with chronic kidney disease Diabetes mellitus supervisor intermediates insulin use: with long-term use (2) Dysphagia Dysphagia type: other dysphagia Qualified Code(s): R13.19 - Other dysphagia (3) Hyperlipidemia Hyperlipidemia type: unspecified Qualified Code(s): E78.5 - Hyperlipidemia, unspecified (4) Hypothyroidism Hypothyroidism type: unspecified Qualified Code(s): E03.9 - Hypothyroidism, unspecified (5) CKD (chronic kidney disease) Chronic kidney disease stage: unspecified stage Qualified Code(s): N18.9 - Chronic kidney disease, unspecified (6) Hypertension Hypertension type: unspecified Qualified Code(s): I10 - Essential (primary) hypertension
[2020-05-13] MEDS ORDERED: BUMETANIDE 1 MG in SYRINGE 0 ML IV SCH (19:30)
[2020-05-13 19:54] LABS: Influenza A virus by PCR Negative (Neg); Influenza B virus by PCR Negative (Neg); RSV by PCR Negative (Neg); SARS CoV2 RNA(COVID-19) InHosp NEGATIVE (Negative)
[2020-05-13] MEDS ORDERED: BUMETANIDE 1 MG in SYRINGE 0 ML IV ONE (20:30)
[2020-05-13] MEDS ORDERED: INSULIN ASPART PER UNIT SQ SCH (23:44)
[2020-05-13] MEDS ORDERED: SUCRALFATE 1 GM/10 ML UDC PO PRN (23:44)
[2020-05-13] MEDS ORDERED: FLUTICASONE PROPIONATE NA SPR 16 GM BTL PRN (23:44)
[2020-05-13] MEDS ORDERED: GLUCAGON FOR INJ 1 MG VIAL SQ PRN (23:44)
[2020-05-13] MEDS ORDERED: ALBUTEROL HFA 8 GM INHALER INH PRN (23:44)
[2020-05-13] MEDS ORDERED: LEVALBUTEROL HCL 1.25 MG/3 ML NEB INH PRN (23:44)
[2020-05-13] MEDS ORDERED: CARBOHYDRATES FOR HYPOGLYCEMIA PO PRN (23:44)
[2020-05-13] MEDS ORDERED: NITROGLYCERIN SL 0.4 MG/TAB TAB SL PRN (23:44)
[2020-05-13] MEDS ORDERED: POLYETHYLENE (MIRALAX) 17 GM PACK PO PRN (23:44)
[2020-05-13] MEDS ORDERED: [UNRECOGNIZED DRUG - OTHER] PO SCH (23:44)
[2020-05-13] MEDS ORDERED: GLUCOSE 40% GEL 15 GM TUBE PO PRN (23:44)
[2020-05-13] MEDS ORDERED: GLUCOSE 10 TABS/TUBE PO PRN (23:44)
[2020-05-13] MEDS ORDERED: DEXTROSE 50% 50 ML SYRINGE IV PRN (23:44)
[2020-05-14] MEDS ORDERED: MELATONIN 3 MG TAB PO PRN (00:18)
[2020-05-14] MEDS: PRAMIPEXOLE DIHYDROCHLO 0.25 MG TAB PO SCH ×2 (01:04→22:13)
[2020-05-14] MEDS: CLOPIDOGREL BISULFATE 75 MG TAB PO SCH ×2 (01:04→22:14)
[2020-05-14] MEDS: RIVAROXABAN 15 MG TAB PO SCH ×2 (01:05→22:14)
[2020-05-14] MEDS: METOPROLOL TARTRATE 50 MG TAB PO SCH ×3 (01:05→22:15)
[2020-05-14] MEDS: FLUTICASONE/VILANTEROL 100/25MCG 14 PUFFS/INHALER INH SCH ×2 (01:07→22:13)
[2020-05-14] MEDS ORDERED: DEXTROSE 50% 50 ML SYRINGE IV PRN (01:08)
[2020-05-14] MEDS ORDERED: CARBOHYDRATES FOR HYPOGLYCEMIA PO PRN (01:08)
[2020-05-14] MEDS ORDERED: GLUCAGON FOR INJ 1 MG VIAL SQ PRN (01:08)
[2020-05-14] MEDS: NovoLOG INSULIN PUMP SCH ×3 (01:15→12:48)
[2020-05-14 06:04] LABS: Basophils # (auto) 0.03 K/uL (0-0.2); Basophils % (auto) 0.3 %; Eosinophils # (auto) 0.21 K/uL (0-0.5); Eosinophils % (auto) 2.4 %; Hematocrit (blood only) 29.8 % (37-47); Hemoglobin 9.5 g/dL (12.0-16.0); Immature Granulocytes # (auto) 0.02 K/uL (0.00-0.02); Immature Granulocytes % (auto) 0.2 %; Lymphocytes % (auto) 17.5 %; Mean Corpuscular Hemoglobin 29.2 pg (25-34); Mean Corpuscular Hgb Conc 31.9 g/dL (32-36); Mean Corpuscular Volume 91.7 fL (80-100); Monocytes # (auto) 0.73 K/uL (0.11-0.59); Monocytes % (auto) 8.5 %; Neutrophils # (auto) 6.09 K/uL (1.4-6.5); Neutrophils % (auto) 71.1 %; Platelet Count 199 K/uL (130-400); RDW Standard Deviation 56.9 fL (36.4-46.3); Red Blood Count 3.25 M/uL (4.2-5.4); White Blood Count 8.58 K/uL (4.8-10.8)
[2020-05-14 06:35] LABS: BUN Creatinine Ratio 34.9 (10-20); Calcium 8.3 mg/dl (8.5-10.1); Creatinine Clr Calc Pharmacy 20.5 ml/min; Est GFR (African American) 23.4; Est GFR (Non-African American) 20.2; Magnesium 3.6 mg/dl (1.8-2.4); Potassium 4.3 mmol/L (3.5-5.1)
[2020-05-14] MEDS: LEVOTHYROXINE SODIUM 125 MCG TABLET PO SCH (06:45)
[2020-05-14] MEDS: INSULIN ASPART 100 UNITS/ML 3 ML PEN SC SCH ×4 (07:30→22:17)
[2020-05-14] MEDS: MULTIVITAMIN TAB PO SCH (07:40)
[2020-05-14] MEDS: PANTOprazole 40 MG TAB PO SCH (07:40)
[2020-05-14] MEDS: CHOLECALCIFEROL 1,000 UNITS 25 MCG TAB PO SCH (07:41)
[2020-05-14] MEDS: BUMETANIDE 1 MG TAB PO SCH (07:42)
[2020-05-14] MEDS: ISOSORBIDE MONO EXTENDED REL 60 MG TABCR PO SCH (07:42)
[2020-05-14] MEDS: ATORVASTATIN 40 MG TAB PO SCH (07:42)
[2020-05-14] MEDS ORDERED: NON-FORMULARY MEDICATION (Coenzyme Q10 100 mg capsule) PO SCH (09:00)
[2020-05-14] MEDS ORDERED: TRIAMCINOLONE ACETONIDE 0.1% TOP SCH (09:00)
[2020-05-14] MEDS ORDERED: LOSARTAN POTASSIUM 50 MG TAB PO SCH (09:00)
[2020-05-14] MEDS: DOCUSATE SODIUM 100 MG CAP PO SCH (09:06)
[2020-05-14] MEDS: SPIRONOLACTONE 25 MG TAB PO SCH (09:06)
[2020-05-14] MEDS: guaiFENesin 600 MG TABCR PO SCH ×2 (13:49→22:14)
[2020-05-14] MEDS ORDERED: BENZONATATE 100 MG CAPSULE PO SCH (14:00)
[2020-05-14] MEDS ORDERED: BUMETANIDE 1 MG TAB PO ONE (16:14)
[2020-05-14] MEDS ORDERED: XOPENEX/ATROVENT 1.25mg/0.5MG NEB COMBO NEB SCH (16:15)
--- NOTE | 2020-05-14 16:19 | Hospitalist Progress Note ---
Date of Service May 14, 2020 Assessment & Plan (1) Acute bronchitis: uncertain if due to chemical aspiration pneumonitis (patient states she aspirated coffee several weeks ago which was followed by persistent cough since) although nothing on CT that shows overt aspiration. uncertain if viral induced -- however, COVID-19/RSV/Flu negative. certainly could have other viral process. doubt bacterial. could be GERD-related as has been suspected in pulmonary clinic. plan - * solumedrol 1mg/kg divided BID * scheduled xopenex/atrovent nebs q6h * incentive santosh and flutter valve * mucinex * increase tessalon to 200mg TID * schedule carafate 1gm TID w/ meals * PPI * check procal in am; if normal defer on antibiotic therapy (2) Right ankle pain: suspect gout uric acid level markedly elevated in the past, likely 2nd CKD check ankle films - r/o CPPD changes steroids for bronchitis will help ankle (3) Acute on chronic diastolic (congestive) heart failure: some of her MEJIA may be volume overload some edema on CT chest give additional diuretics today repeat BMP am hold aldactone given top-normal K level hold ARB given CKD and top-normal K level (4) Dysphagia: appreciate speech input easy to chew diet video swallow 08/2019 wnl (no aspiration) (5) DM type 2 (diabetes mellitus, type 2): WITH HYPOGLYCEMIA. Suspect that her glimepiride use is the culprit in setting of advanced CKD and insulin pump use. Would stop sulfonylurea usage indefinitely. Pharmacy consulted for glycemic management; patient does not have all of her pump supplies, and glycemic control will be challenging with steroids. most recent a1c -- 12/15/19 - 8.1%. (6) Sleep apnea in adult: CPAP HS/naps (7) Chronic kidney disease, stage III (moderate): baseline CR about 1.6-1.9 bmp daily (8) Hypothyroidism: TSH 07/2019 wnl cont synthroid (9) Hyperlipidemia: cont statin (10) Hypertension: cont all home meds (11) Paroxysmal atrial fibrillation: cont xarelto cont nebivolol clinically in NSR today, and EKG with NSR at admission (12) DVT prophylaxis: xarelto change pt's status to full admission I certify that the inpatient services were ordered in accordance with Medicare regulations governing the order. This includes certification that hospital inpatient services are reasonable and necessary and in the case of services not specified as inpatient-only under 42 CFR 419.22(n), that they are appropriately provided as inpatient services in accordance to with the 2-midnight benchmark under 43 CFR 412.3(e) updated pt's son by phone this evening Admission and Anticipated Discharge Date Admission Date: May 13, 2020 Subjective patient has persistent cough, dry, hacky, wheezy. present 3-4 weeks. follows with [facility] pulmonary. notes from office reviewed - latest PFTs w/o obstruction. NOT felt to have obstructive lung disease. GERD-induced?? pulm edema? NUMEROUS meds tried for her cough without significant relief. patient thinks current cough started after aspirating coffee 3-4 weeks ago. MEJIA continues but mildly better than yesterday. doesn't feel tessalon helps. Review of Systems Constitutional: no fever, no chills and no anorexia Ear, Nose, Mouth, Throat: no loss of taste or smell Respiratory: + dyspnea on exertion; no hemoptysis Cardiovascular: + edema; no chest pain Gastrointestinal: + heartburn; no abdominal pain Musculoskeletal: + joint pain (right ankle - started overnight ) Physical Exam Constitutional: no acute distress and no altered mental status coughing - very bronchial in quality ENMT: Mouth: + oropharynx abnormality (mild posterior throat erythema ) hoarse voice Respiratory: poor air movement, end-exp wheezes, slight crackle bases, no increased work of breathing; brassy/bronchial quality to her cough Cardiovascular: Rate/Rhythm: regular rate and regular rhythm Heart Sounds: normal S1 and normal S2; no murmur Vessels: posterior tibial pulses present and dorsalis pedis pulses present; no JVD Extremities: no edema Musculoskeletal: right ankle -- mildly warm to touch; mild effusion/swelling noted; tender with passive flexion/extension; left ankle wnl. Psychiatric: A+Ox3, euthymic affect Results & Data Results & Data ([facility]) Vital Signs (Past 12 Hours) Vital Signs Temp Pulse Resp BP Pulse Ox 05/14/20 14:49 36.7 C 66 18 129/68 90 05/14/20 11:32 36.8 C 57 L 18 144/88 H 95 05/14/20 07:39 36.5 C 51 L 18 137/53 L 95 Laboratory Results Laboratory Results - last 24 hr 05/13/20 05/13/20 05/13/20 16:11 16:11 16:11 WBC 12.55 H RBC 3.31 L Hgb 9.9 L Hct 30.6 L MCV 92.4 MCH 29.9 MCHC 32.4 RDW Std Deviation 57.5 H RDW Coeff of Oj 17.1 H Plt Count 242 MPV 10.7 H Immature Gran % (Auto) 0.2 Neut % (Auto) 74.7 Lymph % (Auto) 16.3 [place] % (Auto) 7.0 Eos % (Auto) 1.5 Baso % (Auto) 0.3 Neut # (Auto) 9.37 H Lymph # (Auto) 2.04 [place] # (Auto) 0.88 H Eos # (Auto) 0.19 Baso # (Auto) 0.04 Immature Gran # (Auto) 0.03 H PT Cancelled INR Cancelled APTT PTT Ratio Sodium 137 Potassium 5.0 Chloride 103 Carbon Dioxide 27 Anion Gap 7.0 BUN 77 H Creatinine 2.49 H Est Cr Clr Drug Dosing Not Reportable Est GFR ( Amer) 20.0 Est GFR (Non-Af Amer) 17.3 BUN/Creatinine Ratio 31.0 H Glucose 127 H POC Glucose Calcium 8.6 Magnesium 3.5 H Total Bilirubin 0.5 AST 9 L ALT 24 Alkaline Phosphatase 90 Troponin I < 0.015 NT-Pro-B Natriuret Pep 1646 Total Protein 7.8 Albumin 4.0 Globulin 3.8 Albumin/Globulin Ratio 1.1 Lipase 377 Urine Color Urine Appearance Urine pH Ur Specific [place] Urine Protein Urine Glucose (UA) Urine Ketones Urine Blood Urine Nitrite Urine Bilirubin Urine Urobilinogen Ur Leukocyte Esterase Urine WBC (Auto) Urine RBC (Auto) U Hyaline Cast (Auto) U Epithel Cells (Auto) Urine Bacteria (Auto) COVID-19 Eval Order SARS-CoV-2 (PCR) Influenza Type A (PCR) Influenza Type B (PCR) RSV (RT-PCR) 05/13/20 05/13/20 05/13/20 16:11 17:40 18:25 WBC RBC Hgb Hct MCV MCH MCHC RDW Std Deviation RDW Coeff of Oj Plt Count MPV Immature Gran % (Auto) Neut % (Auto) Lymph % (Auto) [place] % (Auto) Eos % (Auto) Baso % (Auto) Neut # (Auto) Lymph # (Auto) [place] # (Auto) Eos # (Auto) Baso # (Auto) Immature Gran # (Auto) PT 12.4 H INR 1.2 H APTT 25.9 PTT Ratio 1.0 Sodium Potassium Chloride Carbon Dioxide Anion Gap BUN Creatinine Est Cr Clr Drug Dosing Est GFR ( Amer) Est GFR (Non-Af Amer) BUN/Creatinine Ratio Glucose POC Glucose Calcium Magnesium Total Bilirubin AST ALT Alkaline Phosphatase Troponin I NT-Pro-B Natriuret Pep Total Protein Albumin Globulin Albumin/Globulin Ratio Lipase Urine Color Yellow Urine Appearance Cloudy A Urine pH 6.5 Ur Specific [place] 1.011 Urine Protein Negative Urine Glucose (UA) Negative Urine Ketones Negative Urine Blood 2+ H Urine Nitrite Negative Urine Bilirubin Negative Urine Urobilinogen Negative Ur Leukocyte Esterase 3+ H Urine WBC (Auto) >30 H Urine RBC (Auto) 10-30 H U Hyaline Cast (Auto) 1-5 U Epithel Cells (Auto) 0-5 Urine Bacteria (Auto) 1+ H COVID-19 Eval Order CovFluRsv at [facility] SARS-CoV-2 (PCR) Influenza Type A (PCR) Influenza Type B (PCR) RSV (RT-PCR) 05/13/20 05/14/20 05/14/20 18:25 00:08 05:46 WBC 8.58 RBC 3.25 L Hgb 9.5 L Hct 29.8 L MCV 91.7 MCH 29.2 MCHC 31.9 L RDW Std Deviation 56.9 H RDW Coeff of Oj 17.0 H Plt Count 199 MPV 10.0 Immature Gran % (Auto) 0.2 Neut % (Auto) 71.1 Lymph % (Auto) 17.5 [place] % (Auto) 8.5 Eos % (Auto) 2.4 Baso % (Auto) 0.3 Neut # (Auto) 6.09 Lymph # (Auto) 1.50 [place] # (Auto) 0.73 H Eos # (Auto) 0.21 Baso # (Auto) 0.03 Immature Gran # (Auto) 0.02 PT INR APTT PTT Ratio Sodium Potassium Chloride Carbon Dioxide Anion Gap BUN Creatinine Est Cr Clr Drug Dosing Est GFR ( Amer) Est GFR (Non-Af Amer) BUN/Creatinine Ratio Glucose POC Glucose 121 H Calcium Magnesium Total Bilirubin AST ALT Alkaline Phosphatase Troponin I NT-Pro-B Natriuret Pep Total Protein Albumin Globulin Albumin/Globulin Ratio Lipase Urine Color Urine Appearance Urine pH Ur Specific [place] Urine Protein Urine Glucose (UA) Urine Ketones Urine Blood Urine Nitrite Urine Bilirubin Urine Urobilinogen Ur Leukocyte Esterase Urine WBC (Auto) Urine RBC (Auto) U Hyaline Cast (Auto) U Epithel Cells (Auto) Urine Bacteria (Auto) COVID-19 Eval Order SARS-CoV-2 (PCR) NEGATIVE Influenza Type A (PCR) Negative Influenza Type B (PCR) Negative RSV (RT-PCR) Negative 05/14/20 05/14/20 05/14/20 05:46 07:30 07:31 WBC RBC Hgb Hct MCV MCH MCHC RDW Std Deviation RDW Coeff of Oj Plt Count MPV Immature Gran % (Auto) Neut % (Auto) Lymph % (Auto) [place] % (Auto) Eos % (Auto) Baso % (Auto) Neut # (Auto) Lymph # (Auto) [place] # (Auto) Eos # (Auto) Baso # (Auto) Immature Gran # (Auto) PT INR APTT PTT Ratio Sodium 140 Potassium 4.3 Chloride 105 Carbon Dioxide 30 Anion Gap 5.0 BUN 77 H Creatinine 2.19 H D Est Cr Clr Drug Dosing 20.5 Est GFR ( Amer) 23.4 Est GFR (Non-Af Amer) 20.2 BUN/Creatinine Ratio 34.9 H Glucose 55 L POC Glucose 56 L* 58 L* Calcium 8.3 L Magnesium 3.6 H Total Bilirubin AST ALT Alkaline Phosphatase Troponin I NT-Pro-B Natriuret Pep Total Protein Albumin Globulin Albumin/Globulin Ratio Lipase Urine Color Urine Appearance Urine pH Ur Specific [place] Urine Protein Urine Glucose (UA) Urine Ketones Urine Blood Urine Nitrite Urine Bilirubin Urine Urobilinogen Ur Leukocyte Esterase Urine WBC (Auto) Urine RBC (Auto) U Hyaline Cast (Auto) U Epithel Cells (Auto) Urine Bacteria (Auto) COVID-19 Eval Order SARS-CoV-2 (PCR) Influenza Type A (PCR) Influenza Type B (PCR) RSV (RT-PCR) 05/14/20 05/14/20 05/14/20 07:46 07:50 11:29 WBC RBC Hgb Hct MCV MCH MCHC RDW Std Deviation RDW Coeff of Oj Plt Count MPV Immature Gran % (Auto) Neut % (Auto) Lymph % (Auto) [place] % (Auto) Eos % (Auto) Baso % (Auto) Neut # (Auto) Lymph # (Auto) [place] # (Auto) Eos # (Auto) Baso # (Auto) Immature Gran # (Auto) PT INR APTT PTT Ratio Sodium Potassium Chloride Carbon Dioxide Anion Gap BUN Creatinine Est Cr Clr Drug Dosing Est GFR ( Amer) Est GFR (Non-Af Amer) BUN/Creatinine Ratio Glucose POC Glucose 63 L* 70 133 H Calcium Magnesium Total Bilirubin AST ALT Alkaline Phosphatase Troponin I NT-Pro-B Natriuret Pep Total Protein Albumin Globulin Albumin/Globulin Ratio Lipase Urine Color Urine Appearance Urine pH Ur Specific [place] Urine Protein Urine Glucose (UA) Urine Ketones Urine Blood Urine Nitrite Urine Bilirubin Urine Urobilinogen Ur Leukocyte Esterase Urine WBC (Auto) Urine RBC (Auto) U Hyaline Cast (Auto) U Epithel Cells (Auto) Urine Bacteria (Auto) COVID-19 Eval Order SARS-CoV-2 (PCR) Influenza Type A (PCR) Influenza Type B (PCR) RSV (RT-PCR) PG Care Time/CCT Total # of Minutes Spent Total Time Spent with Patient: Total time spent is greater than 50% in coordination of care (as documented) at patient's floor/unit and/or counseling patient: Coding Level of Care Code 24259 Subseq Hosp Care Lvl 3 Diagnoses Acute bronchitis J20.9 Right ankle pain M25.571 Acute on chronic diastolic (congestive) heart failure I50.33 Dysphagia R13.19 Dysphagia type: other dysphagia DM type 2 (diabetes mellitus, type 2) E11.9 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: with longterm use Diabetes mellitus complication detail: with chronic kidney disease Chronic kidney disease stage: stage 3 (moderate) Sleep apnea in adult G47.30 Chronic kidney disease, stage III (moderate) N18.3 Hypothyroidism E03.9 Hypothyroidism type: unspecified Hyperlipidemia E78.5 Hyperlipidemia type: unspecified Hypertension I10 Hypertension type: unspecified Paroxysmal atrial fibrillation I48.0 DVT prophylaxis Z29.9 (1) Dysphagia Dysphagia type: other dysphagia Qualified Code(s): R13.19 - Other dysphagia (2) DM type 2 (diabetes mellitus, type 2) Diabetes mellitus longterm insulin use: with gang investigator use Diabetes mellitus complication detail: with chronic kidney disease Chronic kidney disease stage: stage 3 (moderate) (3) Hypothyroidism Hypothyroidism type: unspecified Qualified Code(s): E03.9 - Hypothyroidism, unspecified (4) Hyperlipidemia Hyperlipidemia type: unspecified Qualified Code(s): E78.5 - Hyperlipidemia, unspecified (5) Hypertension Hypertension type: unspecified Qualified Code(s): I10 - Essential (primary) hypertension
[2020-05-14] MEDS ORDERED: PHARMACY GLYCEMIC MGMT CONSULT PRN (16:24)
--- NOTE | 2020-05-14 17:02 | XCELERA ---
[id number] \\[id number]}___[id number]
[2020-05-14] MEDS: methylPREDNISolone 40 MG in SYRINGE 0 ML IV SCH (17:09)
[2020-05-14] MEDS ORDERED: cefTRIAXone SODIUM 2,000 MG in DEXTROSE 5% 50 ML IV SCH (18:00)
--- NOTE | 2020-05-14 18:42 | XRay Report ---
RIGHT ANKLE 3 VIEWS CLINICAL HISTORY: Right ankle pain. Clinical concern for gout or possibly pseudogout. FINDINGS: 3 views of the right ankle are obtained. No prior studies are available for comparison at t he time of dictation. The skeletal structures are osteopenic. No fracture is seen. Degenerative bhatt e is noted at the ankle mortise which is maintained. There are large dorsal and plantar calcaneal ent hesophytes. Degenerative spurring is seen along the dorsal aspect of the tarsal bones. No erosive dis ease is identified. A large os trigonum is incidentally noted. Diffuse soft tissue edema is present t hroughout the right lower extremity. There is atherosclerotic calcification of the regional arteries. No soft tissue calcifications are identified. IMPRESSION: 1. Soft tissue swelling with no acute bony abnormality identified. 2. Osteopenia, degenerative change, and heel spurs as above. 3. No soft tissue calcifications are identified. Electronically signed by: Jimmie Brand M.D. 05/14/2020 6:40 PM
[2020-05-14] MEDS: LEVALBUTEROL 1.25MG/0.5ML NEB INH SCH (19:06)
[2020-05-14] MEDS: IPRATROPIUM BROMIDE NEB SOLN 0.02% 2.5 ML VIAL INH SCH (19:06)
[2020-05-14] MEDS ORDERED: INSULIN GLARGINE SOLOSTAR 100 UNITS/ML 3 ML PEN SC ONE (21:30)
[2020-05-14] MEDS: BENZONATATE 100 MG CAPSULE PO SCH (22:15)
[2020-05-15] MEDS: LEVALBUTEROL 1.25MG/0.5ML NEB INH SCH ×4 (00:10→19:33)
[2020-05-15] MEDS: IPRATROPIUM BROMIDE NEB SOLN 0.02% 2.5 ML VIAL INH SCH ×4 (00:10→19:33)
[2020-05-15] MEDS: methylPREDNISolone 40 MG in SYRINGE 0 ML IV SCH (05:08)
[2020-05-15] MEDS: LEVOTHYROXINE SODIUM 125 MCG TABLET PO SCH (05:09)
--- NOTE | 2020-05-15 06:01 | Electrocardiogram Report ---
Test Reason : Blood Pressure : / mmHG Vent. Rate : 068 BPM Atrial Rate : 068 BPM P-R Int : 148 ms QRS Dur : 076 ms QT Int : 410 ms P-R-T Axes : 070 -03 -17 degrees QTc Int : 435 ms Normal sinus rhythm Normal ECG When compared with ECG of 29-NOV-2017 18:12, Sinus rhythm has replaced Atrial flutter Vent. rate has decreased BY 72 BPM Nonspecific T wave abnormality no longer evident in Lateral leads Confirmed by Pb Salas ([id number]) on 05/15/2020 6:01:22 AM Referred By: REFERRED SELF Confirmed By:Pb Salas
[2020-05-15 06:55] LABS: Basophils # (auto) 0.01 K/uL (0-0.2); Basophils % (auto) 0.1 %; Eosinophils # (auto) 0.01 K/uL (0-0.5); Eosinophils % (auto) 0.1 %; Hematocrit (blood only) 30.3 % (37-47); Hemoglobin 9.9 g/dL (12.0-16.0); Immature Granulocytes # (auto) 0.03 K/uL (0.00-0.02); Immature Granulocytes % (auto) 0.3 %; Lymphocytes % (auto) 10.4 %; Mean Corpuscular Hemoglobin 30.2 pg (25-34); Mean Corpuscular Hgb Conc 32.7 g/dL (32-36); Mean Corpuscular Volume 92.4 fL (80-100); Mean Platelet Volume 10.9 fL (7.4-10.4); Monocytes # (auto) 0.28 K/uL (0.11-0.59); Monocytes % (auto) 2.9 %; Neutrophils % (auto) 86.2 %; Platelet Count 236 K/uL (130-400); Red Blood Count 3.28 M/uL (4.2-5.4); White Blood Count 9.63 K/uL (4.8-10.8)
[2020-05-15 07:43] LABS: BUN Creatinine Ratio 32.8 (10-20); Calcium 8.9 mg/dl (8.5-10.1); Creatinine Clr Calc Pharmacy 19.7 ml/min; Est GFR (African American) 22.3; Est GFR (Non-African American) 19.2; Potassium 5.2 mmol/L (3.5-5.1); Uric Acid 13.4 mg/dl (2.6-7.2)
[2020-05-15] MEDS: guaiFENesin 600 MG TABCR PO SCH (08:25)
[2020-05-15] MEDS: CHOLECALCIFEROL 1,000 UNITS 25 MCG TAB PO SCH (08:25)
[2020-05-15] MEDS: BUMETANIDE 1 MG TAB PO SCH (08:25)
[2020-05-15] MEDS: ATORVASTATIN 40 MG TAB PO SCH (08:25)
[2020-05-15] MEDS: PANTOprazole 40 MG TAB PO SCH (08:25)
[2020-05-15] MEDS: MULTIVITAMIN TAB PO SCH (08:25)
[2020-05-15] MEDS: DOCUSATE SODIUM 100 MG CAP PO SCH (08:25)
[2020-05-15] MEDS: ISOSORBIDE MONO EXTENDED REL 60 MG TABCR PO SCH (08:25)
[2020-05-15] MEDS: SPIRONOLACTONE 25 MG TAB PO SCH (08:26)
[2020-05-15] MEDS: METOPROLOL TARTRATE 50 MG TAB PO SCH ×2 (08:26→21:13)
[2020-05-15] MEDS: SUCRALFATE 1 GM/10 ML UDC PO SCH ×3 (08:27→17:03)
[2020-05-15] MEDS: INSULIN ASPART 100 UNITS/ML 3 ML PEN SC SCH ×4 (08:27→21:15)
[2020-05-15] MEDS: BENZONATATE 100 MG CAPSULE PO SCH (08:27)
[2020-05-15] MEDS ORDERED: INSULIN GLARGINE SOLOSTAR 100 UNITS/ML 3 ML PEN SC ONE ×2 (09:10→12:00)
--- NOTE | 2020-05-15 09:48 | Pharmacy Report ---
Pharmacy Glycemic Short Note 2 - Date of Service May 15, 2020 - Glycemic Short BSG Results (Last 24 hours): 05/14/20 05/14/20 05/14/20 11:29 16:30 20:38 Glucose POC Glucose 133 H 71 161 H 05/15/20 05/15/20 06:18 07:15 Glucose 241 H POC Glucose 283 H OUTPATIENT ANTIDIABETIC REGIMEN: * V-Go 30 insulin pump, glimepiride 4 mg po bid * A1c 05/15 - pending ASSESSMENT: * 84 year old admitted with dyspnea, acute bronchitis. Started on rocephin and steroids. PMHx significant for CHF, CKD, hypothyroidism, hld, htn, afib. * BSGs on admission low in the 50s. Insulin pump removed yesterday * Spoke with patient over phone to review insulin pump at home. She was not able to tell me any of the settings. She mentioned she does about 3 clicks with most larger meals (with each click for mealtime insulin, V-Go delivers 2 units of insulin). I reviewed fill history and appears she fills V-Go 30. This insulin device would deliver 30 units over 24 hrs. After talking with DM educator, patient reports 2-3 clicks with breakfast/lunch and 4+ clicks with dinner * She does report checking her BSG 3x/day - reports BSGs typically 100-130s most days * She only received 5 units of basal insulin last night, will give an additional 25 units now to make up home basal, plan to tighten CF/CR with lunch PLAN FOR INPATIENT GLYCEMIC CONTROL: * Hold outpatient oral diabetes medications * Basal insulin * Lantus 25x1 * Lantus HS 5-10 units * Bolus insulin * NovoLog per scale ACHS or Q6hrs while NPO * Goal Range: Low 110 mg/dL - High 140 mg/dL * Correction Factor: 25 mg/dL/unit * Nutritional / Prandial insulin per carb ratio of 1 unit per 8 grams CHO consumed PLAN FOR DISCHARGE: * tbd
[2020-05-15] MEDS ORDERED: COLCHICINE 0.6 MG TAB PO ONE (11:39)
[2020-05-15] MEDS ORDERED: HYDROCODONE/ACETAMOPHEN 5/325MG TAB PO ONE (11:40)
[2020-05-15] MEDS ORDERED: INSULIN HUMAN REGULAR PER UNIT 8 UNITS in SYRINGE 7.92 ML IV ONE (12:00)
--- NOTE | 2020-05-15 13:55 | XRay Report ---
XR chest 2V PA/lateral CLINICAL HISTORY: persistent cough COMPARISON STUDY: 11/20/2017 FINDINGS: The heart is mildly enlarged. There is a right-sided A-Port catheter. There is mild interst itial thickening. There is no lobar consolidation.[There are no pleural effusions. IMPRESSION: Cardiomegaly and mild nonspecific interstitial thickening. No evidence of lobar consolida tion ACT 112: Negative or not required by law. Electronically signed by: Tanner Boss M.D. 05/15/2020 1:54 PM
[2020-05-15] MEDS: methylPREDNISolone 30 MG in SYRINGE 0 ML IV SCH (17:02)
[2020-05-15] MEDS: FLUTICASONE/VILANTEROL 100/25MCG 14 PUFFS/INHALER INH SCH (21:11)
[2020-05-15] MEDS: PRAMIPEXOLE DIHYDROCHLO 0.25 MG TAB PO SCH (21:13)
[2020-05-15] MEDS: CLOPIDOGREL BISULFATE 75 MG TAB PO SCH (21:13)
[2020-05-15] MEDS: RIVAROXABAN 15 MG TAB PO SCH (21:14)
--- NOTE | 2020-05-15 21:18 | Hospitalist Progress Note ---
Date of Service May 15, 2020 Assessment & Plan (1) Acute bronchitis: uncertain if due to chemical aspiration pneumonitis (patient states she aspirated coffee several weeks ago which was followed by persistent cough since) although nothing on CT that shows overt aspiration. uncertain if viral induced -- however, COVID-19/RSV/Flu negative. certainly could have other viral process. doubt bacterial. Procal today wnl. could be GERD-related as has been suspected in pulmonary clinic. repeat cxr today without pneumonia; nonspecific interstitial infiltrate noted. overall she looks better today. hoarse voice is improved. airation improved. I question if she could have element of laryngeal dyskinesia? consider ENT referral post-d/c. plan - * cont solumedrol but cut dose to 30mg IV bid, then over to po prednisone tomorrow * cont scheduled xopenex/atrovent nebs q6h * incentive santosh and flutter valve * stop mucinex and tessalon * try robittusin AC 5cc q6h prn * cont carafate 1gm TID w/ meals * cont PPI * stop rocephin given cxr findings and normal procalcitonin (2) Pulmonary HTN: severe on echo yesterday. etiology?? cardiology states the pulmonary HTN was present on 08/2019 echo. due to poorly controlled OLAF? chronic VTE? other?? 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 will need 2-step prior to d/c. (3) Right ankle pain: suspect gout uric acid level >13 cont steroids colchicine x 1 dose today ankle x-rays without CPPD changes (4) Acute on chronic diastolic (congestive) heart failure: improved BUN and Cr are high will not give additional diuretics today HOLD aldactone given K of 5.2 HOLD bumex in am tomorrow until BMP is back to ensure stable BUN, Cr, and K (5) Dysphagia: appreciate speech input easy to chew diet video swallow 08/2019 wnl (no aspiration) consider ENT eval post-d/c -- GERD induced cough?? laryngeal dyskinesia? other? (6) DM type 2 (diabetes mellitus, type 2): WITH HYPOGLYCEMIA yesterday - resolved. Suspect that her glimepiride use is the culprit in setting of advanced CKD and insulin pump use. Would stop sulfonylurea usage indefinitely. Pharmacy consulted for glycemic management; patient does not have all of her pump supplies, and glycemic control will be challenging with steroids. most recent a1c -- 12/15/19 - 8.1%. appreciate pharmacy input and recs. (7) Sleep apnea in adult: CPAP HS/naps cause of pulmonary HTN? fortunately RV function is normal on echo this admission (8) Chronic kidney disease, stage III (moderate): baseline CR about 1.6-1.9 bmp daily Cr 2.2 today (9) Hypothyroidism: TSH 07/2019 wnl cont synthroid (10) Hyperlipidemia: cont statin (11) Hypertension: cont all home meds except diuretics until repeat BMP is obtained (12) Paroxysmal atrial fibrillation: cont xarelto cont nebivolol clinically in NSR today, and EKG with NSR at admission (13) DVT prophylaxis: xarelto updated pt's son yesterday by phone PT evaluation tomorrow Admission and Anticipated Discharge Date Admission Date: May 14, 2020 Subjective patient still with dry cough. still with MEJIA. no symptom is worse today. hoarse voice improved. she does note that when her cough is active she typically has hoarse voice with it. she has good appetite. denies any new symptoms. echo from yesterday reviewed. severe pulmonary HTN present. RV pressure overload but normal RV function. normal LV function. Review of Systems Constitutional: no fever and no chills Ear, Nose, Mouth, Throat: + post nasal drip (constant throat clearing ) Respiratory: + cough and + wheezing; no hemoptysis and no sputum production Cardiovascular: + dyspnea on exertion; no chest pain, no orthopnea and no edema Gastrointestinal: no abdominal pain, no nausea and no vomiting Musculoskeletal: + joint pain (right ankle - still uncomfortable and still hard to ambulate) Physical Exam Constitutional: no acute distress and no altered mental status ENMT: external ear and nose normal, oropharynx normal Respiratory: + cough; no respiratory distress Auscultation: + crackles (right base only); no diminished lung sounds (airation improved today ) and no wheezes Cardiovascular: Rate/Rhythm: regular rate and regular rhythm Heart Sounds: normal S1, normal S2 and + murmur (2/6 systolic LSB) Vessels: + JVD (mild), posterior tibial pulses present and brachial pulses present Extremities: no edema Gastrointestinal (Abdomen): normal bowel sounds, soft, nontender, no hepatosplenomegaly Musculoskeletal: right ankle - scant warmth today; minimal tenderness to palpation today; passive ROM improved Psychiatric: A+Ox3, euthymic affect Results & Data Results & Data ([facility]) Vital Signs (Past 12 Hours) Vital Signs Temp Pulse Resp BP Pulse Ox 05/15/20 20:00 36.4 C L 69 18 144/69 H 93 05/15/20 19:36 69 18 93 05/15/20 15:00 36.5 C 77 18 165/49 H 93 05/15/20 13:22 77 20 95 05/15/20 11:33 36.8 C 68 18 134/78 90 Laboratory Results Laboratory Results - last 24 hr 05/15/20 05/15/20 05/15/20 06:18 06:18 06:18 WBC 9.63 RBC 3.28 L Hgb 9.9 L Hct 30.3 L MCV 92.4 MCH 30.2 MCHC 32.7 RDW Std Deviation 56.0 H RDW Coeff of Oj 17.0 H Plt Count 236 MPV 10.9 H Immature Gran % (Auto) 0.3 Neut % (Auto) 86.2 Lymph % (Auto) 10.4 [place] % (Auto) 2.9 Eos % (Auto) 0.1 Baso % (Auto) 0.1 Neut # (Auto) 8.30 H Lymph # (Auto) 1.00 L [place] # (Auto) 0.28 Eos # (Auto) 0.01 Baso # (Auto) 0.01 Immature Gran # (Auto) 0.03 H Sodium 136 Potassium 5.2 H D Chloride 100 Carbon Dioxide 30 Anion Gap 6.0 BUN 75 H Creatinine 2.28 H Est Cr Clr Drug Dosing 19.7 Est GFR ( Amer) 22.3 Est GFR (Non-Af Amer) 19.2 BUN/Creatinine Ratio 32.8 H Glucose 241 H POC Glucose Uric Acid 13.4 H Calcium 8.9 Procalcitonin 0.07 05/15/20 05/15/20 05/15/20 07:15 11:23 11:24 WBC RBC Hgb Hct MCV MCH MCHC RDW Std Deviation RDW Coeff of Oj Plt Count MPV Immature Gran % (Auto) Neut % (Auto) Lymph % (Auto) [place] % (Auto) Eos % (Auto) Baso % (Auto) Neut # (Auto) Lymph # (Auto) [place] # (Auto) Eos # (Auto) Baso # (Auto) Immature Gran # (Auto) Sodium Potassium Chloride Carbon Dioxide Anion Gap BUN Creatinine Est Cr Clr Drug Dosing Est GFR ( Amer) Est GFR (Non-Af Amer) BUN/Creatinine Ratio Glucose POC Glucose 283 H 390 H* 398 H* Uric Acid Calcium Procalcitonin 05/15/20 05/15/20 05/15/20 14:32 16:34 20:20 WBC RBC Hgb Hct MCV MCH MCHC RDW Std Deviation RDW Coeff of Oj Plt Count MPV Immature Gran % (Auto) Neut % (Auto) Lymph % (Auto) [place] % (Auto) Eos % (Auto) Baso % (Auto) Neut # (Auto) Lymph # (Auto) [place] # (Auto) Eos # (Auto) Baso # (Auto) Immature Gran # (Auto) Sodium Potassium Chloride Carbon Dioxide Anion Gap BUN Creatinine Est Cr Clr Drug Dosing Est GFR ( Amer) Est GFR (Non-Af Amer) BUN/Creatinine Ratio Glucose POC Glucose 145 H 214 H 214 H Uric Acid Calcium Procalcitonin Diagnostic Findings echo - preserved EF, severe pulmonary HTN, severe TR, RV pressure overload PG Care Time/CCT Total # of Minutes Spent Total Time Spent with Patient: Total time spent is greater than 50% in coordination of care (as documented) at patient's floor/unit and/or counseling patient: Coding Level of Care Code 38515 Subseq Hosp Care Lvl 3 Diagnoses Acute bronchitis J20.9 Pulmonary HTN I27.20 Right ankle pain M25.571 Acute on chronic diastolic (congestive) heart failure I50.33 Dysphagia R13.19 Dysphagia type: other dysphagia DM type 2 (diabetes mellitus, type 2) E11.9 Diabetes mellitus [employer] insulin use: with [employer] use Diabetes mellitus complication detail: with chronic kidney disease Chronic kidney disease stage: stage 3 (moderate) Sleep apnea in adult G47.30 Chronic kidney disease, stage III (moderate) N18.3 Hypothyroidism E03.9 Hypothyroidism type: unspecified Hyperlipidemia E78.5 Hyperlipidemia type: unspecified Hypertension I10 Hypertension type: unspecified Paroxysmal atrial fibrillation I48.0 DVT prophylaxis Z29.9 (1) Dysphagia Dysphagia type: other dysphagia Qualified Code(s): R13.19 - Other dysphagia (2) DM type 2 (diabetes mellitus, type 2) Diabetes mellitus group home insulin use: with group home use Diabetes mellitus complication detail: with chronic kidney disease Chronic kidney disease stage: stage 3 (moderate) (3) Hypothyroidism Hypothyroidism type: unspecified Qualified Code(s): E03.9 - Hypothyroidism, unspecified (4) Hyperlipidemia Hyperlipidemia type: unspecified Qualified Code(s): E78.5 - Hyperlipidemia, unspecified (5) Hypertension Hypertension type: unspecified Qualified Code(s): I10 - Essential (primary) hypertension
[2020-05-15] MEDS: guaiFENesin/CODEINE 100MG/10MG 5ML UDC PO PRN (21:22)
[2020-05-16] MEDS: INSULIN ASPART 100 UNITS/ML 3 ML PEN SC SCH ×6 (00:07→20:25)
[2020-05-16] MEDS: LEVALBUTEROL 1.25MG/0.5ML NEB INH SCH ×2 (01:09→07:29)
[2020-05-16] MEDS: IPRATROPIUM BROMIDE NEB SOLN 0.02% 2.5 ML VIAL INH SCH ×2 (01:09→07:29)
[2020-05-16] MEDS: methylPREDNISolone 30 MG in SYRINGE 0 ML IV SCH (06:23)
[2020-05-16] MEDS: LEVOTHYROXINE SODIUM 125 MCG TABLET PO SCH (06:23)
[2020-05-16] MEDS: SUCRALFATE 1 GM/10 ML UDC PO SCH ×3 (07:12→16:06)
[2020-05-16] MEDS: ISOSORBIDE MONO EXTENDED REL 60 MG TABCR PO SCH (07:12)
[2020-05-16] MEDS: METOPROLOL TARTRATE 50 MG TAB PO SCH ×2 (07:12→20:24)
[2020-05-16] MEDS: CHOLECALCIFEROL 1,000 UNITS 25 MCG TAB PO SCH (07:12)
[2020-05-16] MEDS: DOCUSATE SODIUM 100 MG CAP PO SCH (07:13)
[2020-05-16] MEDS: PANTOprazole 40 MG TAB PO SCH (07:13)
[2020-05-16] MEDS: MULTIVITAMIN TAB PO SCH (07:13)
[2020-05-16] MEDS: ATORVASTATIN 40 MG TAB PO SCH (07:13)
[2020-05-16] MEDS: guaiFENesin/CODEINE 100MG/10MG 5ML UDC PO PRN (07:15)
[2020-05-16 07:24] LABS: Estimated Average Glucose 186 mg/dl; Hemoglobin A1C 8.1 % (4.5-5.6)
[2020-05-16 07:32] LABS: BUN Creatinine Ratio 33.4 (10-20); Calcium 8.6 mg/dl (8.5-10.1); Creatinine Clr Calc Pharmacy 17.5 ml/min; Est GFR (African American) 18.2; Est GFR (Non-African American) 15.7; Potassium 4.3 mmol/L (3.5-5.1)
[2020-05-16] MEDS ORDERED: LEVALBUTEROL 1.25MG/0.5ML NEB INH PRN (08:11)
[2020-05-16] MEDS ORDERED: IPRATROPIUM BROMIDE NEB SOLN 0.02% 2.5 ML VIAL INH PRN (08:11)
[2020-05-16] MEDS ORDERED: INSULIN GLARGINE SOLOSTAR 100 UNITS/ML 3 ML PEN SC ONE ×2 (09:00→12:00)
--- NOTE | 2020-05-16 12:21 | Hospitalist Progress Note ---
Date of Service May 16, 2020 Assessment & Plan (1) Acute bronchitis: uncertain if due to chemical aspiration pneumonitis (patient states she aspirated coffee several weeks ago which was followed by persistent cough since) although nothing on CT that shows overt aspiration. uncertain if viral induced -- however, COVID-19/RSV/Flu negative. certainly could have other viral process. doubt bacterial. Procal wnl. could be GERD-related as has been suspected in pulmonary clinic. I question if she could have element of laryngeal dyskinesia? ENT referral post-d/c. plan - * stop solumedrol today * po prednisone tomorrow * cont scheduled xopenex/atrovent nebs q6h although question whether it is actually doing any good; PFTs in office showed no obstruction and no bronchodilator response * incentive santosh and flutter valve * stop robittusin AC 5cc q6h prn; not helping; change to hycotan prn * cont carafate 1gm TID w/ meals * cont PPI can't rule out element of pulmonary edema at time of admission but BUN and Cr have risen steadily since admission suggesting volume depletion at this time (2) Pulmonary HTN: cardiology consult today appreciated Dr Tipton looked at echo - PA pressures are unchanged from 08/2019 echo mild-mod pulm HTN 2nd to poor control of OLAF (patient not using CPAP regularly at home) RV dilation on echo c/w pulm HTN and OLAF pulm HTN could be contributing to chronic MEJIA (3) Right ankle pain: suspect gout uric acid level >13 IMPROVED cont steroids ankle x-rays without CPPD changes low purine diet; nutrition to see to give counseling likely to need uloric or allopurinol - at risk of recurrent flares given such high uric acid level (4) Acute on chronic diastolic (congestive) heart failure: resolved BUN and Cr are high hold all diuretics today bmp am (5) Dysphagia: appreciate speech input easy to chew diet video swallow 08/2019 wnl (no aspiration) consider ENT eval post-d/c -- GERD induced cough?? laryngeal dyskinesia? other? (6) DM type 2 (diabetes mellitus, type 2): Suspect that her glimepiride use is the culprit in setting of advanced CKD and insulin pump use as cause of hypoglycemia early in hospital stay. Would stop sulfonylurea usage indefinitely. Pharmacy consulted for glycemic management; patient does not have all of her pump supplies, and glycemic control will be challenging with steroids. most recent a1c -- 12/15/19 - 8.1%. appreciate pharmacy input and recs. (7) Sleep apnea in adult: CPAP HS/naps cause of pulmonary HTN fortunately RV function is normal on echo this admission (8) Chronic kidney disease, stage III (moderate): baseline CR about 1.6-1.9 hold ARB and diuretics given rise in Cr bmp in am (9) Hypothyroidism: TSH 07/2019 wnl cont synthroid (10) Hyperlipidemia: cont statin (11) Hypertension: cont all home meds except diuretics and ARB (12) Paroxysmal atrial fibrillation: cont xarelto cont nebivolol clinically in NSR today, and EKG with NSR at admission (13) DVT prophylaxis: xarelto updated pt's son again today by phone extensive discussion re: various medial issues PT evaluation done; cleared for home home tomorrow hopefully spirometry ordered to see if any obstruction in midst of current severe cough Admission and Anticipated Discharge Date Admission Date: May 14, 2020 Subjective patient continues with cough. this is despite nebs, IV steroids, robitussin ac, etc. she had a severe "coughing fit" this am. she walked with therapy and O2 sats were mid 90s in room air. MEIJA does seem better, however. occasional hoarse voice but this is a bit better. eating well. no new complaints. right ankle pain nearly resolved. Review of Systems Constitutional: no fever, no chills, no fatigue and no anorexia Ear, Nose, Mouth, Throat: hoarse voice Respiratory: + cough; no sputum production and no wheezing Cardiovascular: no chest pain, no dyspnea at rest, no orthopnea and no edema Gastrointestinal: no abdominal pain, no nausea and no vomiting Physical Exam Constitutional: no acute distress and no altered mental status ENMT: external ear and nose normal, oropharynx normal hoarse voice Respiratory: + cough; no respiratory distress Auscultation: + crackles (right base only); no wheezes good airation Cardiovascular: Rate/Rhythm: regular rate and regular rhythm Heart Sounds: normal S1, normal S2 and + murmur (2/6 systolic LSB) Vessels: posterior tibial pulses present, dorsalis pedis pulses present and brachial pulses present Extremities: no edema Gastrointestinal (Abdomen): normal bowel sounds, soft, nontender, no hepatosplenomegaly Musculoskeletal: synovitis of right ankle resolved Psychiatric: A+Ox3, euthymic affect Results & Data Results & Data ([facility]) Vital Signs (Past 12 Hours) Vital Signs Temp Pulse Resp BP Pulse Ox 05/16/20 11:05 36.7 C 76 18 159/70 H 92 05/16/20 07:35 36.3 C L 60 18 134/50 L 92 05/16/20 07:30 65 16 98 05/16/20 04:00 36.4 C L 61 18 145/70 H 94 05/16/20 02:31 20 92 05/16/20 01:09 72 20 92 Laboratory Results Laboratory Results - last 24 hr 05/15/20 05/15/20 05/15/20 14:32 16:34 20:20 Sodium Potassium Chloride Carbon Dioxide Anion Gap BUN Creatinine Est Cr Clr Drug Dosing Est GFR ( Amer) Est GFR (Non-Af Amer) BUN/Creatinine Ratio Glucose POC Glucose 145 H 214 H 214 H Estimat Average Glucose Hemoglobin A1c Calcium 05/16/20 05/16/20 05/16/20 00:04 04:20 06:40 Sodium 137 Potassium 4.3 D Chloride 99 Carbon Dioxide 31 Anion Gap 7.0 BUN 90 H Creatinine 2.69 H D Est Cr Clr Drug Dosing 17.5 Est GFR ( Amer) 18.2 Est GFR (Non-Af Amer) 15.7 BUN/Creatinine Ratio 33.4 H Glucose 185 H POC Glucose 252 H 255 H Estimat Average Glucose Hemoglobin A1c Calcium 8.6 05/16/20 05/16/20 05/16/20 06:40 07:42 11:16 Sodium Potassium Chloride Carbon Dioxide Anion Gap BUN Creatinine Est Cr Clr Drug Dosing Est GFR ( Amer) Est GFR (Non-Af Amer) BUN/Creatinine Ratio Glucose POC Glucose 214 H 339 H* Estimat Average Glucose 186 Hemoglobin A1c 8.1 H Calcium 05/16/20 11:17 Sodium Potassium Chloride Carbon Dioxide Anion Gap BUN Creatinine Est Cr Clr Drug Dosing Est GFR ( Amer) Est GFR (Non-Af Amer) BUN/Creatinine Ratio Glucose POC Glucose 340 H* Estimat Average Glucose Hemoglobin A1c Calcium PG Care Time/CCT Total # of Minutes Spent Total Time Spent with Patient: Total time spent is greater than 50% in coordination of care (as documented) at patient's floor/unit and/or counseling patient: Coding Level of Care Code 57625 Subseq Hosp Care Lvl 3 Diagnoses Acute bronchitis J20.9 Pulmonary HTN I27.20 Right ankle pain M25.571 Acute on chronic diastolic (congestive) heart failure I50.33 Dysphagia R13.19 Dysphagia type: other dysphagia DM type 2 (diabetes mellitus, type 2) E11.9 Chronic kidney disease stage: stage 3 (moderate) Diabetes mellitus complication detail: with chronic kidney disease Diabetes mellitus assisted insulin use: with long term care pharmacist use Sleep apnea in adult G47.30 Chronic kidney disease, stage III (moderate) N18.3 Hypothyroidism E03.9 Hypothyroidism type: unspecified Hyperlipidemia E78.5 Hyperlipidemia type: unspecified Hypertension I10 Hypertension type: unspecified Paroxysmal atrial fibrillation I48.0 DVT prophylaxis Z29.9 (1) DM type 2 (diabetes mellitus, type 2) Chronic kidney disease stage: stage 3 (moderate) Diabetes mellitus complication detail: with chronic kidney disease Diabetes mellitus long term care pharmacist insulin use: with assisted use (2) Dysphagia Dysphagia type: other dysphagia Qualified Code(s): R13.19 - Other dysphagia (3) Hyperlipidemia Hyperlipidemia type: unspecified Qualified Code(s): E78.5 - Hyperlipidemia, unspecified (4) Hypothyroidism Hypothyroidism type: unspecified Qualified Code(s): E03.9 - Hypothyroidism, unspecified (5) Hypertension Hypertension type: unspecified Qualified Code(s): I10 - Essential (primary) hypertension
[2020-05-16] MEDS: INSULIN HUMAN REGULAR PER UNIT 5 UNITS in SYRINGE 4.95 ML IV ONE ×2 (12:36→12:38)
[2020-05-16] MEDS: HYDROcodone/HOMATROPINE SYRUP 5MG/1.5MG 5ML UDP PO PRN ×2 (12:40→20:22)
--- NOTE | 2020-05-16 12:56 | Cardiology Consultation ---
Date of Consultation May 16, 2020 Assessment & Plan (1) Pulmonary HTN: -echocardiogram calculates (does not directly measure) elevated pulmonary pressures. -seems to be unchanged from study done in August 2019. -the D sign suggesting RV pressure volume overload was only seen after a PVC and of questionable significance. -suspect the elevated pulmonary pressures are related to her obstructive sleep apnea. -she has not used her CPAP mask in over 2 months. -do not see the need for a right heart catheterization. (2) Chronic diastolic (congestive) heart failure: -well compensated at this time. -she follows daily weights and sliding-scale diuretics at home. (3) Paroxysmal atrial fibrillation: -tolerating rate control and long-term anticoagulation without difficulty. (4) Hypertension: -adequate control on current regimen. (5) Hyperlipidemia: -continue atorvastatin. History of Present Illness Reason for Consultation: Mrs. Narvaez is an 84-year-old female admitted on May 13 with progressive exertional dyspnea. An echocardiogram revealed significant pulmonary hypertension and therefore, this consultation was ordered. Of note, the patient is well known to me from the outpatient setting. The patient claims she is in her usual state of health until approximately 3 weeks ago. The patient began to note progressive exertional dyspnea to the point that she can only climb 5 steps without stopping to rest. She has not experienced any exertional chest pain. She further denies syncope, presyncope, PND, orthopnea, palpitations, lower extremity edema, and claudication. The patient does carry history of chronic diastolic CHF. She follows daily weights at home and sliding-scale diuretics. Her typical dry weight is 195 lb. She takes Bumex 2 mg daily with an additional dose when necessary for weight gain. The patient also carries a history of obstructive sleep apnea. She has not used her CPAP mask at night in over 2 months. An echocardiogram performed during his hospitalization noted normal left ventricular systolic function, [id number] mitral regurgitation, and moderate to severe tricuspid regurgitation. There was a diastolic and systolic D sign suggesting right ventricular volume and pressure overload. Significant pulmonary hypertension was also suggested. Currently, patient is resting comfortably in bed without complaints. Past medical and surgical history 1. Coronary artery disease-LAD and D1 HORACE, July 2015 2. Hypertension 3. Hypercholesterolemia 4. Chronic diastolic CHF 5. Zukj-fu-nenszkkl mitral regurgitation 6. Moderate tricuspid regurgitation 7. Pulmonary hypertension 8. Paroxysmal atrial fibrillation 9. Peripheral vascular disease 10. Chronic renal failure 11. Diabetes mellitus 12. Hypothyroidism 13. Obstructive sleep apnea 14. GERD 15. Hiatal hernia 16. Esophageal spasm 17. DJD 18. 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 Left mastectomy 21. Bilateral carpal tunnel release 22. Appendectomy 23. TRINH/BSO 24. Tonsillectomy 25. A port Social history , lives alone No tobacco alcohol Family history Noncontributory Review of systems A 10 point review systems was negative except for that described above. Attending Physician: Dustin Marcelino Allergies Allergy/AdvReac Type Severity Reaction Status Date / Time cat dander Allergy Intermediate itching Verified 05/13/20 17:05 eyes, blisters pseudoephedrine AdvReac Intermediate Hallucinati Verified 05/13/20 17:05 ons Home Medications Medication Instructions Recorded Confirmed Type Xarelto 15 mg PO QPM #30 tab 12/02/17 05/13/20 Rx albuterol sulfate 1.25 mg INH Q6H PRN #90 ml 12/02/17 05/13/20 Rx clopidogrel 75 mg tablet 75 mg PO QPM #90 tab 12/11/18 05/13/20 History fluticasone 232 mcg-salmeterol 14 1 puffs INHALATION QPM #1 ea 12/11/18 05/13/20 History mcg/actuation breath activated powdr multivitamin 1 tab PO DAILY 12/11/18 05/13/20 History pramipexole 0.25 mg tablet 0.25 mg PO QPM tab 12/11/18 05/13/20 History albuterol sulfate 90 mcg/actuation 2 puffs INHALATION Q4H PRN #1 gm 02/18/19 05/13/20 History aerosol inhaler coenzyme Q10 100 mg capsule 100 mg PO DAILY cap 02/18/19 05/13/20 History denosumab 120 mg/1.7 mL (70 mg/mL) 120 mg SUBCUT MONTHLY ml 02/18/19 05/13/20 History subcutaneous solution docusate sodium 100 mg capsule 100 mg PO DAILY cap 02/18/19 05/13/20 History exemestane 25 mg tablet 25 mg PO QAM tab 02/18/19 05/13/20 History insulin aspart U-100 100 unit/mL See Rx Instructions SUBCUT 02/18/19 05/13/20 History subcutaneous solution .COMPLEX ml isosorbide mononitrate 120 mg 120 mg PO QAM #90 tab 02/18/19 05/13/20 History tablet,extended release 24 hr levothyroxine 125 mcg tablet 125 mcg PO QAM #90 tab 02/18/19 05/13/20 History losartan 100 mg tablet 100 mg PO QAM #90 tab 02/18/19 05/13/20 History melatonin 5 mg capsule 5 mg PO QPM PRN cap 02/18/19 05/13/20 History nebivolol 10 mg tablet 10 mg PO QPM tab 02/18/19 05/13/20 History nitroglycerin 0.4 mg sublingual 0.4 mg SL Q5M PRN #25 tab 02/18/19 05/13/20 History tablet cholecalciferol (vitamin D3) 25 1,000 units PO DAILY 02/23/19 05/13/20 History mcg (1,000 unit) capsule triamcinolone acetonide 0.1 % 1 appln TOP DAILY 06/08/19 05/13/20 History lotion spironolactone 25 mg tablet 25 mg PO DAILY tab 08/19/19 05/13/20 History clobetasol 0.05 % shampoo 1 appln TOP DAILY PRN 10/07/19 05/13/20 History clobetasol 0.05 % topical cream 1 appln TOP UD 10/07/19 05/13/20 History bumetanide 2 mg tablet 2 mg PO DAILY 01/01/20 05/13/20 History glimepiride 4 mg tablet 4 mg PO BID tab 01/01/20 05/13/20 History ketoconazole 2 % shampoo 1 applic TOPICAL DAILY ml 01/01/20 05/13/20 History pantoprazole 40 mg tablet,delayed 40 mg PO DAILY 02/10/20 05/13/20 History release sucralfate 100 mg/mL oral 10 ml PO UD PRN ml 02/10/20 05/13/20 History suspension Calcium Carbonate-Mag Chloride 1 tab PO BID 05/13/20 05/13/20 History atorvastatin [Lipitor] 40 mg PO DAILY 05/13/20 05/13/20 History fluticasone propionate [Flonase 1 sprays INTNAS BID PRN 02/12/21 02/12/21 History Allergy Relief] Patient History Medical History Acute kidney injury Asthma USES PRN INH BID ON AVERAGE Atrial fibrillation DX 2017 - ON XARELTO - FOLLOWS W/ DR. JEONG Atrial flutter with rapid ventricular response Breast cancer REPORTS RECENT REOCCURRENCE OF BREAST CANCER TO RT BREAST 2006 - LEFT MASTECTOMY + CHEMO/RADIATION Chronic anticoagulation Chronic kidney disease, stage III (moderate) DM type 2 (diabetes mellitus, type 2) IDDM - pt has insulin pump Hyperlipidemia Hypertension Hypothyroidism Osteoarthritis Port-A-Cath in place Rhabdomyolysis Urinary leakage Surgical History History of appendectomy History of breast biopsy History of cardiac cath 2017 - - [facility] - 2 STENTS - FOLLOWS W/ DR. 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 HEENT exam is negative. Neck is supple with full carotid upstrokes. There are no carotid bruits. Jugular is pressure is flat at 90. There is no thyromegaly. Cardiovascular exam reveals a regular rhythm a normal S1-S2. Heart sounds are distant. No obvious murmurs. Lungs are clear without rales, rhonchi or wheezes. Abdomen is soft and nontender without bruits. Extremities reveal intact radial artery pulses bilaterally. There is trace pretibial edema. Results & Data ([facility]) Vital Signs (Past 12 Hours) Vital Signs Temp Pulse Resp BP Pulse Ox 05/16/20 11:05 36.7 C 76 18 159/70 H 92 05/16/20 07:35 36.3 C L 60 18 134/50 L 92 05/16/20 07:30 65 16 98 05/16/20 04:00 36.4 C L 61 18 145/70 H 94 05/16/20 02:31 20 92 05/16/20 01:09 72 20 92 Laboratory Results CBC notes hemoglobin of 9.9, hematocrit 30.3, white count 9.6, platelet count of [id number]. Electrolytes note a sodium of 137, potassium 4.3, chloride 99, bicarb 31, BUN 90, creatinine 2.69, glucose of 185. BNP is normal at 1646. Troponin I levels undetectable at less than 0.015. Diagnostic Findings EKG notes normal sinus rhythm without abnormalities. Echocardiogram was personally reviewed and notes an ejection fraction of approximately 60%. There is mild to moderate mitral and moderate tricuspid regurgitation. The D sign noted of the interventricular septum appears to be only present after a PVC. CT scan of the chest noted a stable right 3rd rib metastatic lesion. PG Care Time/CCT Total # of Minutes Spent Total Time Spent with Patient: Total time spent is greater than 50% in coordination of care (as documented) at patient's floor/unit and/or counseling patient: Coding Level of Care Code 98026 Initial Inpt Care Lvl 3 Diagnoses Pulmonary HTN I27.20 Chronic diastolic (congestive) heart failure I50.32 Paroxysmal atrial fibrillation I48.0 Hypertension I10 Hypertension type: unspecified Hyperlipidemia E78.5 Hyperlipidemia type: unspecified (1) Hypertension Hypertension type: unspecified Qualified Code(s): I10 - Essential (primary) hypertension (2) Hyperlipidemia Hyperlipidemia type: unspecified Qualified Code(s): E78.5 - Hyperlipidemia, unspecified
--- NOTE | 2020-05-16 13:29 | Pharmacy Report ---
Pharmacy Glycemic Short Note 2 - Date of Service May 16, 2020 - Glycemic Short BSG Results (Last 24 hours): 05/15/20 05/15/20 05/15/20 14:32 16:34 20:20 Glucose POC Glucose 145 H 214 H 214 H 05/16/20 05/16/20 05/16/20 00:04 04:20 06:40 Glucose 185 H POC Glucose 252 H 255 H 05/16/20 05/16/20 05/16/20 07:42 11:16 11:17 Glucose POC Glucose 214 H 339 H* 340 H* OUTPATIENT ANTIDIABETIC REGIMEN: * V-Go 30 insulin pump - 2-3 clicks with breakfast and lunch, 4+ clicks with dinner, glimepiride 4 mg po bid * A1c 05/15 - 8.1% ASSESSMENT: 05/16 * Patient received total of 95 units of insulin yesterday, of which 35 were basal insulin. Insulin needs greatly elevated while on steroids. Also likely patient basal deficient from transition of insulin pump to SQ insulin * Fasting BSG this AM improving, now 214 mg/dL. Patient requiring insulin overnight - increase to 50 units of basal this AM * Tightened CF/CR - BSG trending up at lunch time despite tightened parameters, steroids adjusted to pred 30 starting tomorrow. Anticipate BSGs to start trending down today, hesitant to tighten further 05/15 * 84 year old admitted with dyspnea, acute bronchitis. Started on rocephin and steroids. PMHx significant for CHF, CKD, hypothyroidism, hld, htn, afib. * BSGs on admission low in the 50s. Insulin pump removed yesterday * Spoke with patient over phone to review insulin pump at home. She was not able to tell me any of the settings. She mentioned she does about 3 clicks with most larger meals (with each click for mealtime insulin, V-Go delivers 2 units of insulin). I reviewed fill history and appears she fills V-Go 30. This insulin device would deliver 30 units over 24 hrs. After talking with DM educator, patient reports 2-3 clicks with breakfast/lunch and 4+ clicks with dinner * She does report checking her BSG 3x/day - reports BSGs typically 100-130s most days * She only received 5 units of basal insulin last night, will give an additional 25 units now to make up home basal, plan to tighten CF/CR with lunch PLAN FOR INPATIENT GLYCEMIC CONTROL: * Hold outpatient oral diabetes medications * Basal insulin * Lantus 50 units x 1 * Bolus insulin * NovoLog per scale ACHS or Q6hrs while NPO * Goal Range: Low 110 mg/dL - High 140 mg/dL * Correction Factor: 15 mg/dL/unit * Nutritional / Prandial insulin per carb ratio of 1 unit per 5 grams CHO consumed PLAN FOR DISCHARGE: * A1c 8.1% on admission - goal <8% * Reasonable to continue with V-GO insulin pump post discharge. Per DM educator notes, patient does have syringes/insulin pen at home to use if needed for bolus dosing day of discharge and can resume V-GO following morning (24 hrs after basal insulin given) * Patient follows PCP for DM management, would continue care with PCP post discharge
[2020-05-16] MEDS: RIVAROXABAN 15 MG TAB PO SCH (20:20)
[2020-05-16] MEDS: PRAMIPEXOLE DIHYDROCHLO 0.25 MG TAB PO SCH (20:24)
[2020-05-16] MEDS: FLUTICASONE/VILANTEROL 100/25MCG 14 PUFFS/INHALER INH SCH (20:24)
[2020-05-16] MEDS: CLOPIDOGREL BISULFATE 75 MG TAB PO SCH (20:24)
[2020-05-17] MEDS: INSULIN ASPART 100 UNITS/ML 3 ML PEN SC SCH ×4 (00:04→12:12)
[2020-05-17] MEDS: LEVOTHYROXINE SODIUM 125 MCG TABLET PO SCH (06:29)
[2020-05-17 07:21] LABS: BUN Creatinine Ratio 42.4 (10-20); Calcium 8.5 mg/dl (8.5-10.1); Creatinine Clr Calc Pharmacy 21.1 ml/min; Est GFR (African American) 22.8; Est GFR (Non-African American) 19.6; Potassium 4.4 mmol/L (3.5-5.1)
[2020-05-17 07:33] VITALS: TEMP 97.7
[2020-05-17] MEDS: SUCRALFATE 1 GM/10 ML UDC PO SCH ×2 (07:49→12:13)
[2020-05-17] MEDS: ATORVASTATIN 40 MG TAB PO SCH (07:50)
[2020-05-17] MEDS: MULTIVITAMIN TAB PO SCH (07:50)
[2020-05-17] MEDS: METOPROLOL TARTRATE 50 MG TAB PO SCH (07:50)
[2020-05-17] MEDS: ISOSORBIDE MONO EXTENDED REL 60 MG TABCR PO SCH (07:50)
[2020-05-17] MEDS: DOCUSATE SODIUM 100 MG CAP PO SCH (07:50)
[2020-05-17] MEDS: CHOLECALCIFEROL 1,000 UNITS 25 MCG TAB PO SCH (07:50)
[2020-05-17] MEDS: PANTOprazole 40 MG TAB PO SCH (07:50)
[2020-05-17] MEDS ORDERED: INSULIN GLARGINE SOLOSTAR 100 UNITS/ML 3 ML PEN SC SCH (09:00)
[2020-05-17] MEDS ORDERED: predniSONE 10 MG TABLET PO SCH (09:00)
--- NOTE | 2020-05-17 10:27 | Pharmacy Report ---
Pharmacy Glycemic Short Note 2 - Date of Service May 17, 2020 - Glycemic Short BSG Results (Last 24 hours): 05/16/20 05/16/20 05/16/20 11:16 11:17 16:38 Glucose POC Glucose 339 H* 340 H* 185 H 05/16/20 05/16/20 05/17/20 20:00 23:49 04:23 Glucose POC Glucose 287 H 97 94 05/17/20 05/17/20 06:33 07:44 Glucose 77 POC Glucose 91 OUTPATIENT ANTIDIABETIC REGIMEN: * V-Go 30 insulin pump - 2-3 clicks with breakfast and lunch, 4+ clicks with dinner, glimepiride 4 mg po bid * A1c 05/15 - 8.1% ASSESSMENT: 05/17: * Emily received a total of 125 units of insulin yesterday (~ 30% increase from previous day; likely steroid related) * 50 units basal + 75 units bolus * BSGs were [phone] mg/dL - above goal * Fasting BSG was below goal at 91 mg/dL this AM * This is likely due to steroids being decreased to 30 mg of Prednisone daily and patient receiving 25% more Lantus yesterday than the day before * I will decrease her Lantus to her home dose of 30 units daily today * Spoke with attending, patient likely being discharged today so will instruct patient to start V-Go pump tomorrow morning. Will also instruct her on giving bolus insulin injections with meals this evening until her pump is restarted. She will be discharged on a low-dose steroid taper. 05/16: * Patient received total of 95 units of insulin yesterday, of which 35 were basal insulin. Insulin needs greatly elevated while on steroids. Also likely patient basal deficient from transition of insulin pump to SQ insulin * Fasting BSG this AM improving, now 214 mg/dL. Patient requiring insulin ov ernight - increase to 50 units of basal this AM * Tightened CF/CR - BSG trending up at lunch time despite tightened parameters, steroids adjusted to pred 30 starting tomorrow. Anticipate BSGs to start trending down today, hesitant to tighten further 05/15: * 84 year old admitted with dyspnea, acute bronchitis. Started on rocephin and steroids. PMHx significant for CHF, CKD, hypothyroidism, hld, htn, afib. * BSGs on admission low in the 50s. Insulin pump removed yesterday * Spoke with patient over phone to review insulin pump at home. She was not able to tell me any of the settings. She mentioned she does about 3 clicks with most larger meals (with each click for mealtime insulin, V-Go delivers 2 units of insulin). I reviewed fill history and appears she fills V-Go 30. This insulin device would deliver 30 units over 24 hrs. After talking with DM educator, patient reports 2-3 clicks with breakfast/lunch and 4+ clicks with dinner * She does report checking her BSG 3x/day - reports BSGs typically 100-130s most days * She only received 5 units of basal insulin last night, will give an additional 25 units now to make up home basal, plan to tighten CF/CR with lunch PLAN FOR INPATIENT GLYCEMIC CONTROL: * Hold outpatient oral diabetes medications * Basal insulin - decreased * Lantus 30 units SQ AM * Bolus insulin * NovoLog per scale ACHS or Q6hrs while NPO * Goal Range: Low 110 mg/dL - High 140 mg/dL * Correction Factor: 15 mg/dL/unit * Nutritional / Prandial insulin per carb ratio of 1 unit per 5 grams CHO consumed PLAN FOR DISCHARGE: * A1c 8.1% on admission - goal <8% * Reasonable to continue with V-GO insulin pump post discharge. Per DM educator notes, patient does have syringes/insulin pen at home to use if needed for bolus dosing day of discharge and can resume V-GO following morning (24 hrs after basal insulin given). * Recommend discontinuing Glimepiride upon discharge. * Patient follows PCP for DM management, would continue care with PCP post discharge
[2020-05-17 11:10] VITALS: BP 126/65; PULSE 47; O2SAT 93
--- NOTE | 2020-05-17 12:53 | Cardiology Progress Note ---
Date of Service May 17, 2020 Assessment & Plan (1) Pulmonary HTN: -echocardiogram calculates elevated pulmonary pressures. -unchanged from study done in August 2019. -suspect the elevated pulmonary pressures are related to her obstructive sleep apnea. -she has not used her CPAP mask in over 2 months. -do not feel hat aright heart catheterization is necessary. (2) Chronic diastolic (congestive) heart failure: -well compensated at this time. -she follows daily weights and sliding-scale diuretics. (3) Paroxysmal atrial fibrillation: -continue rate control and long-term anticoagulation. (4) Hypertension: -adequate control on current regimen. (5) Hyperlipidemia: -continue atorvastatin. Admission and Anticipated Discharge Date Admission Date: May 13, 2020 Subjective The patient is resting comfortably in bed without complaints of chest pain or dyspnea. She continues to note her chronic cough. Physical Exam Physical Exam: In general is well-developed well-nourished white female no acute distress. HEENT exam is negative. Neck is supple with full carotid upstrokes. No carotid bruits. Jugular venous pressure is flat at 90. There is no thyromegaly. Cardiovascular exam reveals a regular rhythm with a normal S1 and S2. No S3, S4, or murmurs are noted. Lungs are clear without rales, rhonchi, or wheezes. Abdomen is soft nontender without bruits extremities reveal intact radial artery pulses bilaterally. There is no peripheral edema. Results & Data ([facility]) Vital Signs (Past 12 Hours) Vital Signs Temp Pulse Pulse Resp BP Pulse Ox 05/17/20 11:10 36.5 C 47 L 18 126/65 93 05/17/20 07:33 36.5 C 53 L 18 130/68 91 05/17/20 03:46 74 20 94 PG Care Time/CCT Total # of Minutes Spent Total Time Spent with Patient: Total time spent is greater than 50% in coordination of care (as documented) at patient's floor/unit and/or counseling patient: Coding Level of Care Code 56855 Subseq Hosp Care Lvl 3 Diagnoses Pulmonary HTN I27.20 Chronic diastolic (congestive) heart failure I50.32 Paroxysmal atrial fibrillation I48.0 Hypertension I10 Hypertension type: unspecified Hyperlipidemia E78.5 Hyperlipidemia type: unspecified (1) Hypertension Hypertension type: unspecified Qualified Code(s): I10 - Essential (primary) hypertension (2) Hyperlipidemia Hyperlipidemia type: unspecified Qualified Code(s): E78.5 - Hyperlipidemia, unspecified
--- NOTE | 2020-05-17 14:10 | Discharge Summary ---
Date of Service date of admission - May 13, 2020 date of discharge - May 17, 2020 Admission HPI Per Admitting Provider 84 YOF with past medical history of breast cancer with mets, HTN, VA with stents, COPD, Hypothyroidism, DM II with insulin pump, OLAF with CPAP, chronic cough, dysphagia, afib, hfPRef, HLD, chronic back pain. Patient came to the ER today by herself for chief complaint of shortness of breath. The patient states that she has been increasingly short of breath for the past 3 weeks that got worse this week. She has been using her Albuterol inhalers 6-8 times per day and her nebulizer 4 times per day with no relief. She can walk up 5 stairs and has to take a break and then get to the top of her stairs and have to take a break again. She feels that between 5-10 minutes of rest she is able to get her breath back. She reports that she has not been using her CPAP for the past month or so and her last compliance report in May 2019 showed 43% use. She has been sleeping in her recliner at home as well, unclear if this is her dyspnea or cough causing this. She is followed closely with pulmonary for her chronic cough and breathlessness. Previously treated with antibiotics and prednisone in the past with minimal relief as well as Sudafed, chlorpheniramine, fluticasone, and nasal washings. Patient also experiences dysphagia with choking/coughing spells and has recently feels like she may have "aspirated her coffee". ECHO in August 2019 with EF 55-60% and moderate MR/TR. She feels as well that her legs are slightly more swollen than normal, but overall appears Euvolemic. Patient had a walk test while in the EMD and became quite dyspneic by the time she was out in the hallway. She did not experience any hypoxia. Patient is also experiencing suprapubic bladder discomfort which is worse when she is lying flat and reportedly was treated for UTI and appears to still have "dirty urine" and symptoms. Principal Diagnosis acute on chronic cough with dyspnea Discharge Exam Constitutional no acute distress and no altered mental status occasional cough ENMT external ear and nose normal, oropharynx normal mild hoarse voice Respiratory + cough; no respiratory distress Auscultation: + crackles (B/l bases; fine, dry); no diminished lung sounds, no rhonchi and no wheezes Cardiovascular Rate/Rhythm: regular rate and regular rhythm Heart Sounds: normal S1, normal S2 and + murmur (2/6 systolic LSB) Vessels: posterior tibial pulses present, dorsalis pedis pulses present and brachial pulses present Extremities: no edema Gastrointestinal (Abdomen) normal bowel sounds, soft, nontender, no hepatosplenomegaly Musculoskeletal resolved synovitis right ankle; full passive ROM without pain; no warmth; no swelling Psychiatric A+Ox3, euthymic affect Discharge Data Allergies Allergy/AdvReac Type Severity Reaction Status Date / Time cat dander Allergy Intermediate itching Verified 05/13/20 17:05 eyes, blisters pseudoephedrine AdvReac Intermediate Hallucinati Verified 05/13/20 17:05 ons Consultations [facility] Cardiology Speech Therapy PT Ordered Studies 05/13/20 16:15 CT abd pelvis IV con only Stat IMPRESSION: 1. No evidence of bowel obstruction. No evidence of free air 2. Diverticulosis. No evidence of acute diverticulitis 3. Mild bladder wall thickening with mild infiltration of the surrounding fat. Clinical correlation with regards to a cystitis is recommended 4. Mild pericholecystic edema. No gallbladder distention. No calculi visualized. 05/13/20 16:29 CT chest diagnostic w con Stat IMPRESSION: 1. 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 No evidence of pathologic adenopathy 3. Minimal subpleural septal edema 4. There is no evidence of focal pulmonary consolidation to indicate a pneumonia 5. Stable RML pulmonary nodule, 7mm Echocardiogram - * EF 60-65% * no regional wall motion abnormalities * mild LVH * mildly dilated right ventricle with normal systolic function * biatrial enlargement * mild-moderate mitral regurgitation * moderate-severe tricuspid regurgitation * pulmonary HTN - unchanged from prior echo Spirometry - * reduced FEV1 * reduced FVC * normal FEV1/FVC suggestive of restrictive lung disease Hospital Course (1) Acute bronchitis: The patient presented with severe cough and dyspnea along with hoarse voice. It was uncertain if her symptoms were due to chemical aspiration pneumonitis (patient states she aspirated coffee several weeks ago which was followed by persistent cough since then). However there were no specific findings on CT that showed overt aspiration. Uncertain if viral induced -- however, COVID-19/RSV/Flu were negative. Could have been GERD-related as has been suspected in [facility] pulmonary clinic. I question if she could have element of laryngeal dyskinesia as well. Spirometry was done during the hospitalization showing no obstruction. Previous PFTs done in the pulmonary clinic have also not shown obstruction. She was treated with bronchodilators, steroids, various cough medications, PPI/carafate, and diuretics. Diuretics helped her dyspnea early on in her stay suggesting perhaps an element of pulmonary edema contributing to her presentation. However, bronchodilators/steroids/narcotic-based cough meds, and other agents didn't seem to make any significant difference in her symptoms. She never required oxygen during the visit. At discharge she was given prescriptions for a quick prednisone taper and tussionex cough syrup. The prednisone is mainly for her gout but perhaps will help with her pulmonary symptoms. I advised ENT consultation post-discharge for consideration of laryngoscopy, to determine if chronic GERD is contributing to acute/chronic cough, etc. I also recommended she see [facility] pulmonary within 1-2 weeks of discharge. (2) Chronic cough: See discussion above in "acute bronchitis." Has been worked up by pulmonary in the past - GERD has been suspected. She does not take an TANVIR inhibitor but does take an ARB. Although theoretically ARBs should not cause cough, her ARB was discontinued. Perhaps this will help?? ENT referral made post-d/c. (3) Gout: Right ankle. Uric acid level was 13.4. Pain/swelling improved with steroids. Will complete a quick prednisone taper post-d/c. Given her CKD and markedly elevated uric acid level she may need allopurinol prophylaxis. Nutrition saw patient in consult and gave information on low purine diet. (4) Right ankle pain: Suspected gout uric acid level >13 ankle x-rays without CPPD changes low purine diet advised (5) Pulmonary HTN: Cardiology consult was completed during this visit. Dr Miguel A Tipton, her primary senior executive compensation analyst, looked at echo and her PA pressures were unchanged from 08/2019 echo. Mild-moderate pulmonary HTN is likely 2nd to poor control of OLAF (patient not using CPAP regularly at home). RV dilation on echo c/w pulm HTN and OLAF. Of note - pulmonary HTN could be contributing to chronic MEJIA. (6) Acute on chronic diastolic (congestive) heart failure: resolved. BUN and Cr climbed with diuresis and thus her diuretics were held later in her stay. She will resume her normal diuretics 24 hours after discharge. (7) Dysphagia: Speech therapy saw patient in consult. easy to chew diet advised. video swallow 08/2019 wnl (no aspiration). ENT eval post-d/c -- GERD-induced cough?? laryngeal dyskinesia? other? (8) DM type 2 (diabetes mellitus, type 2): Suspect that her glimepiride use was the culprit in setting of advanced CKD and insulin pump use as cause of hypoglycemia early in hospital stay. Would stop sulfonylurea usage indefinitely. Pharmacy consulted for glycemic management during the hospital stay. most recent a1c -- 12/15/19 - 8.1%. (9) Sleep apnea in adult: CPAP Likely cause of pulmonary HTN fortunately RV function is normal on echo (10) Chronic kidney disease, stage III (moderate): baseline CR about 1.6-1.9 had concomitant FLORENCIA from diuresis during the visit peak Cr 2.6 discharge Cr 2.2 ARB to be held at discharge diuretics to be resumed 24 hours post-discharge (11) Hypothyroidism: TSH 07/2019 wnl cont synthroid (12) Hyperlipidemia: cont statin (13) Hypertension: cont all home meds except ARB (14) Paroxysmal atrial fibrillation: cont xarelto cont nebivolol clinically in NSR during the visit, and EKG with NSR at admission (15) Acute kidney injury: peak Cr 2.6 discharge Cr 2.2 ARB held at discharge will need repeat BMP at time of hospital follow-up Total Time Total Time Spent Total Time Spent (In Minutes): 40 Total Time Includes: Examination of the Patient, Discharge Planning, Medication Reconciliation and Communication With Other Providers Discharge Plan Discharge Items Patient Disposition: Home - Self-Care Reason For Visit: ACUTE BRONCHITIS Discharge Diagnosis: 1. Acute on chronic cough with shortness of breath - latter improving. Acute shortness of breath - either pneumonitis (lung irritation) from recent aspiration event and/or water retention in the lungs. Acute cough - likely from the pneumonitis. Chronic cough - exact cause has been uncertain; pulmonary has suspected possible GERD as cause. 2. right ankle gout - improved. Activity: As commented below Activity Comment: gradually increase your activities over the next week Non-emergency contact: Primary Care Provider, Specialist and Convenience Store Manager Call non-emergency contact if: you have any medication questions, your symptoms worsen and you have a fever Follow-up/Referrals: Manish Perry MD [Physician] - 03/18/21 8:00 am (You have an appt with Dr Perry ENT, on June 16 at 0800am. It is important that you keep this appt. Due the nature of the this appt, you will nbeed to have a COVID test on June 10. You may go to any [facility] testing site to have this done. Dr. Perry will write for this. If you have questions please call [phone]. ) Buddy Babcock MD [Physician] - 06/23/20 1:00 pm (You have appt with Pulm. on 06/23 at 1300. Please arrive 15 minutes prior to your appt time. It is important that you keep this appt. If this date and time does not fit your schedule please call [phone].) Tanner López MD [Primary Care Provider] - 05/24/20 3:00 pm (you have an appt with your PCP on 05/24 @ 3pm. Please arrive 15 minutes prior to appt. If this appt does not fit your schedule please call [phone].) Diet: Carb Consistent or DM2 Addtl Attending Provider Instructions: Mrs Narvaez, You were treated for the problems listed above in "discharge diagnoses." We did not find any pneumonia on your CAT scan of the lungs. Blood work did not show signs of heart attack. Early on there was concern that your cough & shortness of breath may have been a combination of pneumonitis/bronchitis from inhaling coffee several weeks ago, and/or water retention in the lungs from heart disease. You were given steroids and neb treatments for the possible bronchitis/pneumonitis, and diuretics for the water retention. If you had water retention it is resolved. Your pulmonary function test on 05/17 - similar to past PFTs done in the pulmonary clinic - does not show evidence of asthma or asthma-like condition(s). As for your chronic cough I agree with pulmonary that perhaps it is coming from GERD or some other upper airway problem. I would like for you to see ENT to help determine if GERD is contributing to your chronic cough and hoarse voice. Lastly, you had a suspected gout attack in the right ankle. It improved with steroids. Your gout level (uric acid) was very high at about 13 (should be less than 6). You are at risk of additional gout attacks. Please speak to your family doctor about gout prevention medication. Please stop the following medications -- * glimepiride * losartan Additional recommendations -- * increase your sucralfate liquid to twice daily (AM and at bedtime) * you can try tussionex liquid for cough -- 2.5cc or 5cc every 12 hours as needed for cough * caution -- the tussionex can some times cause sleepiness; do not drive or drink alcohol while using the tussinex * ok to resume your bumex and spironolactone water pills TOMORROW morning; do not take today Follow-up -- see separate section Return to [facility] if -- * you have fever over 100 degrees * your shortness of breath worsens * you have chest pains * any other concerns It was my pleasure caring for you! -Dr Marcelino Pending Studies at Discharge: No Stand-Alone Forms: My [facility], Smoking Cessation Medications and DC Order Prescriptions: New hydrocodone-chlorpheniramine 10-8 mg/5 mL suspension,extended rel 12 hr 2.5 - 5 ml PO Q12H PRN (Reason: cough) Qty: 115 RF: 0 prednisone 10 mg tablet 10 mg PO DIRECTED Qty: 12 RF: 0 Continued pramipexole 0.25 mg tablet 0.25 mg PO QPM RF: 0 multivitamin [Multiple Vitamins] tablet 1 tab PO DAILY RF: 0 fluticasone propion-salmeterol 232-14 mcg/actuation aerosol powdr breath activated 1 puffs inhalation QPM Qty: 1 RF: 0 clopidogrel 75 mg tablet 75 mg PO QPM Qty: 90 RF: 0 albuterol sulfate 90 mcg/actuation HFA aerosol inhaler 2 puffs inhalation Q4H PRN (Reason: SOB) Qty: 1 RF: 0 coenzyme Q10 100 mg capsule 100 mg PO DAILY RF: 0 docusate sodium 100 mg capsule 100 mg PO DAILY RF: 0 exemestane 25 mg tablet 25 mg PO QAM RF: 0 isosorbide mononitrate 120 mg tablet extended release 24 hr 120 mg PO QAM Qty: 90 RF: 0 levothyroxine 125 mcg tablet 125 mcg PO QAM Qty: 90 RF: 0 melatonin 5 mg capsule 5 mg PO QPM PRN (Reason: Insomnia) RF: 0 nebivolol 10 mg tablet 10 mg PO QPM RF: 0 nitroglycerin 0.4 mg tablet, sublingual 0.4 mg SL Q5M PRN (Reason: Chest Pain) Qty: 25 RF: 0 insulin aspart U-100 100 unit/mL solution See Rx Instructions subcut .COMPLEX RF: 0 denosumab 120 mg/1.7 mL (70 mg/mL) solution 120 mg subcut MONTHLY RF: 0 clobetasol 0.05 % cream 1 appln TOP UD RF: 0 clobetasol 0.05 % shampoo 1 appln TOP DAILY PRN (Reason: ..) RF: 0 pantoprazole 40 mg tablet,delayed release (DR/EC) 40 mg PO DAILY RF: 0 bumetanide 2 mg tablet 2 mg PO DAILY RF: 0 ketoconazole 2 % shampoo 1 applic topical DAILY RF: 0 spironolactone 25 mg tablet 25 mg PO DAILY RF: 0 cholecalciferol (vitamin D3) 1,000 unit capsule 1,000 units PO DAILY RF: 0 triamcinolone acetonide 0.1 % lotion 1 appln TOP DAILY RF: 0 Xarelto 15 mg Tablet 15 mg PO QPM Qty: 30 RF: 5 albuterol sulfate 1.25 mg/3 mL solution for nebulization 1.25 mg INH Q6H PRN (Reason: cough/wheeze) Qty: 90 RF: 0 atorvastatin [Lipitor] 40 mg tablet 40 mg PO DAILY RF: 0 Calcium Carbonate-Mag Chloride 1 tab PO BID RF: 0 fluticasone propionate [Flonase Allergy Relief] 50 mcg/actuation spray,suspension 1 sprays INTNAS BID PRN (Reason: Nasal Congestion) RF: 0 Changed sucralfate 100 mg/mL suspension 10 ml PO BID Qty: 0 RF: 0 Discontinued losartan 100 mg tablet 100 mg PO QAM Qty: 90 RF: 0 glimepiride 4 mg tablet 4 mg PO BID RF: 0 Discharge Orders: Discharge Order (Routine); Ordered 05/17/20 Ordered By: Dustin Mistry/Other Patient Handouts: GERD Dc, Eating to Prevent Gout Admission Data Admit Date/Time: 05/13/20 20:53 Attending Provider: Siuta,Dustin R Admit Provider: Wilfredo Field Primary Care Provider: Tanner López Other Providers: Vincent Romero ; Tl Tipton Other Interventions: Discharge Summary Assessment (RN) Last Done: 05/17/20 14:11 Coding Level of Care Code D/C Day Management >30 mins Diagnoses Acute bronchitis J20.9 Chronic cough R05 Gout M10.9 Right ankle pain M25.571 Pulmonary HTN I27.20 Acute on chronic diastolic (congestive) heart failure I50.33 Dysphagia R13.19 Dysphagia type: other dysphagia DM type 2 (diabetes mellitus, type 2) E11.9 Chronic kidney disease stage: stage 3 (moderate) Diabetes mellitus complication detail: with chronic kidney disease Diabetes mellitus emt intermediate insulin use: with emt intermediate use Sleep apnea in adult G47.30 Chronic kidney disease, stage III (moderate) N18.3 Hypothyroidism E03.9 Hypothyroidism type: unspecified Hyperlipidemia E78.5 Hyperlipidemia type: unspecified Hypertension I10 Hypertension type: unspecified Paroxysmal atrial fibrillation I48.0 Acute kidney injury N17.9
== END 2020-05-17 14:35 | disposition home or self-care (01) | DRG 202 ==
LOC: 2W 14:01 → ED 14:01 → SUATTDRO 20:53 → 2W 22:22

== ENCOUNTER 2020-08-23 16:33 | Inpatient (IN) ==
[2020-08-23] MEDS ORDERED: methylPREDNISolone 125 MG/2 ML VIAL IV STA (17:32)
[2020-08-23] MEDS ORDERED: BENZONATATE 100 MG CAPSULE PO ONE (17:32)
[2020-08-23] MEDS ORDERED: CEFEPIME 2,000 MG/20 ML VIAL IV STA (17:32)
[2020-08-23] MEDS ORDERED: SODIUM CHLORIDE 0.9% 1000ML 500 ML IV ONE ×2 (17:32→18:15)
[2020-08-23] MEDS ORDERED: ALBUT/IPRATROP 3MG/0.5MG NEB 3 ML VIAL NEB STA (17:32)
--- NOTE | 2020-08-23 17:38 | Emergency Department Note ---
Impression & Plan SOB (shortness of breath), Leukocytosis, Cough, Pneumonia, Acute hyperkalemia ED Provider Note NAME: BIENVENIDO POMPA AGE: 85 SEX: F : 1935 ARRIVES VIA: Walk-In INFORMANT: [Patient] ED PROVIDER(S): [Jimmie Fairchild MD] CHIEF COMPLAINT: Short of breath HISTORY OF PRESENT ILLNESS: The patient is an 85-year-old female who states that she has been short of breath with a cough for over 2 years however, things have worsened lately. Today, she had an endoscopy and during the procedure, she became hypoxic and the endoscopy had to be stopped. Patient has been coughing a lot since the endoscopy. The patient has not been Covid vaccinated but she has not had any exposures to Covid. She does have inhalers to use for her lungs, they do not seem to be helping her cough. They were doing the endoscopy as they thought reflux may be the cause of the cough. The patient has not had fever or chills. No vomiting or diarrhea. No urinary complaints. She has moderate abdominal discomfort across her chest and abdominal muscles from all of her coughing. REVIEW OF SYSTEMS: See HPI for pertinent positives and negatives. A total of ten systems were reviewed and were otherwise negative. PMHx/PSHx: See Below SOCIAL HISTORY: See Below. PHYSICAL EXAM: GENERAL: Patient is in no acute distress. HEENT: No acute trauma, normocephalic atraumatic, mucous membranes moist, no nasal congestion, no scleral icterus. NECK: No stridor, no adenopathy, no meningismus, trachea is midline. LUNGS: Persistent dry cough noted. Wheezing bilaterally, no respiratory dist ress, no crackles. HEART: Without murmurs gallops or rubs, regular rate and rhythm. ABDOMEN: Soft, nontender, bowel sounds positive, no hernias, no peritonitis. EXTREMITIES: No cyanosis or edema, full range of motion of all the joints without pain or difficulty, no signs for acute trauma. NEUROLOGIC: Oriented x 3, no acute motor or sensory deficits, no focal weakness. SKIN: No rash, no jaundice, no diaphoresis. DIFFERENTIAL DIAGNOSIS: Sepsis, UTI, pneumonia, metabolic abnormality, electrolyte abnormalities, influenza, COVID-19, cardiac sources, cellulitis, UTI, bacteremia, intracerebral event, toxicologic etiology, neurologic event, as well as other pathologies. EMERGENCY DEPARTMENT COURSE/PROCEDURES: ECG: Indication was shortness of breath. The ECG shows a normal sinus rhythm with a rate of 84. There is a possible old inferior infarct. There are no PVCs, no ST elevation. The QTc is 413. Continuous Cardiac Monitoring: An order was placed for continuous cardiac monitoring. The monitor shows a rate of 92 with normal sinus rhythm. Critical Care Note: I have personally spent 47 minutes of critical care time in the direct management of this patient. This includes bedside care, interpretation of diagnostic studies, and testing, discussion with consultants, patient, and family members, and other required patient management activities. This 47 minutes is in excess of all separately billable procedures. MEDICAL DECISION MAKING: There is a moderate leukocytosis, this could be consistent with infection. No worrisome anemia. There is a normal platelet count. No coagulopathy. Potassium was somewhat high at 6, creatinine was elevated at 1.67. The creatinine elevation is baseline for the patient. Lactic acid level was slightly elevated consistent with infection. No concerning liver enzyme elevation. ECG shows a sinus rhythm, no acute ischemia. Cardiac enzyme testing x1 is not consistent with acute cardiac injury. Covid and influenza testing returned negative. Chest film does show a right-sided pneumonia. The patient presents with a persistent cough. She was hypoxic today at her endoscopy. Certainly, the pneumonia could explain her worsening cough and hypoxia. Patient received IV saline for hydration, she was given 1 L. She received IV Solu-Medrol, she was given a DuoNeb, she was given IV cefepime as antibiotic coverage. The patient is in need of a hospital stay. I spoke with her about her findings, I spoke with case management. The on-call hospitalist was consulted. Of note, the reason for the hyperkalemia is unclear however, the IV fluids and albuterol via nebulizer should lower this value. Past Med/Surg History Medical History Aspiration, chronic pulmonary Asthma USES PRN INH BID ON AVERAGE Atrial fibrillation DX 2017 - ON XARELTO - FOLLOWS W/ DR. JEONG Breast cancer 2005 - LEFT MASTECTOMY + CHEMO/RADIATION REPORTS REOCCURRENCE OF BREAST CANCER TO RT 4th & 5th RIBS (oral/injectable medication) CAD (coronary artery disease) Chronic anticoagulation Chronic cough Chronic diastolic (congestive) heart failure Chronic kidney disease, stage 4 (severe) follows with Dr. Nagel Diabetes mellitus Dysphagia Dyspnea on exertion GERD (gastroesophageal reflux disease) Hyperlipidemia Hypertension Hypothyroidism Insulin pump in place Osteoarthritis Port-A-Cath in place Rt chest Pulmonary hypertension follows with [place] pulmonology Pulmonary hypertension Sleep apnea CPAP Urinary leakage Surgical History History of appendectomy History of breast biopsy History of cardiac cath 2017 - CP - [facility] - 2 STENTS - FOLLOWS W/ DR. JEONG History of carpal tunnel release of both wrists History of colonoscopy History of heart artery stent X 2 (2017) History of left mastectomy pt denies limb restrictions History of tonsillectomy and adenoidectomy History of total abdominal hysterectomy and bilateral salpingo-oophorectomy Family History Father Myocardial infarction Heart disease Mother Hypertension Other No family history of adverse response to anesthesia No family history of bleeding disorder Social History Smoking Status: Never smoker Second Hand Exposure: No; Hx Alcohol Use: No Hx Substance Use: No Preferred Language: Kinyarwanda Communication Ability: Effective Spooling Operator Required: No Beliefs That Will Affect Care: None marital status: / Current Living Situation: Alone current occupational status: retired 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 How many Children do You have Comment: 4 sons - one suffered a broken neck during wrestling practice, became quadraplegic and 6 years later Other Information That Helps Us Care for You: No other: One son is MD (family practice in [place]) Feels Safe at Home: Yes Safety Concerns: Feels Safe At This Time Assistive Devices: Denture - Lower, Glasses and Hearing Aid - Bilateral Assistive Devices Comment: lower partial Allergies Allergies Allergy/AdvReac Type Severity Reaction Status Date / Time cat dander Allergy Intermediate itching Verified 08/23/20 08:32 eyes, blisters pseudoephedrine AdvReac Intermediate Hallucinati Verified 08/23/20 08:32 ons Home Meds Home Medications Medication Instructions Recorded Confirmed clopidogrel 75 mg tablet 75 mg PO QPM #90 tab 12/11/18 08/23/20 fluticasone 232 mcg-salmeterol 14 1 puffs INHALATION QPM #1 ea 12/11/18 08/23/20 mcg/actuation breath activated powdr multivitamin 1 tab PO QAM 12/11/18 08/23/20 albuterol sulfate 90 mcg/actuation 2 puffs INHALATION Q4H PRN #1 gm 02/18/19 08/23/20 aerosol inhaler coenzyme Q10 100 mg capsule 100 mg PO QAM cap 02/18/19 08/23/20 denosumab 120 mg/1.7 mL (70 mg/mL) 120 mg SUBCUT MONTHLY ml 02/18/19 08/23/20 subcutaneous solution docusate sodium 100 mg capsule 100 mg PO HS cap 02/18/19 08/23/20 exemestane 25 mg tablet 25 mg PO QAM tab 02/18/19 08/23/20 insulin aspart U-100 100 unit/mL See Rx Instructions SUBCUT 02/18/19 08/23/20 subcutaneous solution .COMPLEX ml isosorbide mononitrate 120 mg 120 mg PO QAM #90 tab 02/18/19 08/23/20 tablet,extended release 24 hr melatonin 5 mg capsule 5 mg PO QPM PRN cap 02/18/19 08/23/20 nebivolol 10 mg tablet 10 mg PO QPM tab 02/18/19 08/23/20 nitroglycerin 0.4 mg sublingual 0.4 mg SL Q5M PRN #25 tab 02/18/19 08/23/20 tablet cholecalciferol (vitamin D3) 25 1,000 units PO QAM 02/23/19 08/23/20 mcg (1,000 unit) capsule spironolactone 25 mg tablet 25 mg PO UD tab 08/19/19 08/23/20 clobetasol 0.05 % shampoo 1 appln TOP DAILY PRN 10/07/19 08/23/20 ketoconazole 2 % shampoo 1 applic TOPICAL DAILY PRN ml 01/01/20 08/23/20 pantoprazole 40 mg tablet,delayed 40 mg PO QAM 02/10/20 08/23/20 release atorvastatin [Lipitor] 40 mg PO QPM 05/13/20 08/23/20 fluticasone propionate [Flonase 1 sprays INTNAS BID PRN 05/13/20 08/23/20 Allergy Relief] valsartan 40 mg tablet 40 mg PO QAM tab 06/01/20 08/23/20 calcium carb-magnesium carb 1 tab PO BID 08/01/20 08/23/20 famotidine [Acid Flight Operation Coordinator 20 mg PO QAM 08/16/20 08/23/20 (famotidine)] bumetanide 2 mg PO QAM 08/23/20 08/23/20 levothyroxine 150 mcg PO DAILY 08/23/20 08/23/20 pramipexole 0.25 mg PO DAILY 08/23/20 08/23/20 sucralfate 10 ml PO BID PRN 08/23/20 08/23/20 Previous Rx's Medication Instructions Recorded Xarelto 15 mg PO QPM #30 tab 12/02/17 albuterol sulfate 1.25 mg INH Q6H PRN #90 ml 12/02/17 hydrocodone-chlorpheniramine 2.5 - 5 ml PO Q12H PRN #115 ml 05/17/20 azelastine 137 mcg (0.1 %) nasal 2 spray INTRANASAL DAILY #30 ml 06/16/20 spray aerosol Results & Data (ED) Vital Signs Vital Signs - 24 hr 08/23/20 16:55 08/23/20 17:37 08/23/20 17:50 Temperature 37.6 C H Temperature Source Temporal Artery Scan Pulse Rate 92 H 77 Pulse Rate [Left Finger] Pulse Rate from SpO2 Sensor 79 Respiratory Rate 24 27 H Respiratory Effort / Characteristics Non-Labored Spontaneous Short of Breath Respiratory Depth Normal Respiratory Pattern Regular Blood Pressure 171/91 H 120/98 Blood Pressure Mean 117 105 Blood Pressure Position Sitting Pulse Oximetry 91 98 99 Oxygen Delivery Method Room Air Nasal Cannula Oxygen Flow Rate 2.5 Sepsis Recent Fever Within 48 Hours No Sepsis New/Unexplained Change in Mental Status N/A Sepsis Action Taken by Nursing No Action Required 08/23/20 17:54 08/23/20 17:55 08/23/20 18:01 Temperature Temperature Source Pulse Rate 76 76 Pulse Rate [Left Finger] 73 Pulse Rate from SpO2 Sensor 76 Respiratory Rate 20 22 24 Respiratory Effort / Characteristics Spontaneous Labored Short of Breath Respiratory Depth Respiratory Pattern Blood Pressure 167/80 H Blood Pressure Mean 109 Blood Pressure Position Pulse Oximetry 100 95 95 Oxygen Delivery Method Nasal Cannula Nasal Cannula Oxygen Flow Rate 2.5 2 Sepsis Recent Fever Within 48 Hours Sepsis New/Unexplained Change in Mental Status Sepsis Action Taken by Nursing 08/23/20 18:30 08/23/20 19:00 08/23/20 19:01 Temperature Temperature Source Pulse Rate 79 80 Pulse Rate [Left Finger] Pulse Rate from SpO2 Sensor 83 Respiratory Rate 28 H 22 24 Respiratory Effort / Characteristics Spontaneous Labored Short of Breath Respiratory Depth Respiratory Pattern Blood Pressure 170/76 H 161/116 H Blood Pressure Mean 107 131 Blood Pressure Position Pulse Oximetry 92 98 Oxygen Delivery Method Nasal Cannula Oxygen Flow Rate 2 Sepsis Recent Fever Within 48 Hours Sepsis New/Unexplained Change in Mental Status Sepsis Action Taken by Nursing 08/23/20 20:13 Temperature Temperature Source Pulse Rate 73 Pulse Rate [Left Finger] Pulse Rate from SpO2 Sensor 72 Respiratory Rate 23 Respiratory Effort / Characteristics Respiratory Depth Respiratory Pattern Blood Pressure 159/64 H Blood Pressure Mean 95 Blood Pressure Position Pulse Oximetry 95 Oxygen Delivery Method Nasal Cannula Oxygen Flow Rate 2 Sepsis Recent Fever Within 48 Hours Sepsis New/Unexplained Change in Mental Status Sepsis Action Taken by Longterm Medications Current Medication List: was personally reviewed by me Laboratory Data Attestation: I reviewed the patient's lab results. Result diagrams: 08/23/20 17:38 08/23/20 17:38 Lab Results 08/23/20 08/23/20 08/23/20 Range/Units 17:38 17:38 17:38 WBC 16.16 H (4.8-10.8) K/uL RBC 4.01 L (4.2-5.4) M/uL Hgb 11.4 L (12.0-16.0) g/dL Hct 36.8 L (37-47) % MCV 91.8 (80-100) fL MCH 28.4 (25-34) pg MCHC 31.0 L (32-36) g/dL RDW Std Deviation 54.9 H (36.4-46.3) fL RDW Coeff of Oj 16.5 H (11.5-14.5) % Plt Count 223 (130-400) K/uL MPV 10.1 (7.4-10.4) fL Immature Gran % (Auto) 0.3 % Neut % (Auto) 85.5 % Lymph % (Auto) 7.3 % Cocke % (Auto) 6.0 % Eos % (Auto) 0.7 % Baso % (Auto) 0.2 % Neut # (Auto) 13.80 H (1.4-6.5) K/uL Lymph # (Auto) 1.18 L (1.2-3.4) K/uL Cocke # (Auto) 0.97 H (0.11-0.59) K/uL Eos # (Auto) 0.12 (0-0.5) K/uL Baso # (Auto) 0.04 (0-0.2) K/uL Immature Gran # (Auto) 0.05 H (0.00-0.02) K/uL PT (9.0-12.0) Seconds INR (0.9-1.1) APTT (21.0-31.0) Seconds PTT Ratio Sodium 135 L (136-145) mmol/L Potassium 6.0 H (3.5-5.1) mmol/L Chloride 106 (98-107) mmol/L Carbon Dioxide 22 (21-32) mmol/L Anion Gap 6.0 (3-11) BUN 34 H (7-18) mg/dl Creatinine 1.67 H (0.6-1.2) mg/dl Est Cr Clr Drug Dosing 28.2 ml/min Est GFR ( Amer) 32.2 ml/min Est GFR (Non-Af Amer) 27.8 ml/min BUN/Creatinine Ratio 20.6 H (10-20) Glucose 208 H (70-99) mg/dl Lactate (0.4-2.0) mmol/L Calcium 9.1 (8.5-10.1) mg/dl Magnesium 2.3 (1.8-2.4) mg/dl Total Bilirubin 0.9 (0.2-1) mg/dl AST 25 (15-37) U/L ALT 25 (12-78) U/L Alkaline Phosphatase 99 (45-117) U/L Troponin I 0.020 (0-0.045) ng/ml Total Protein 7.8 (6.4-8.2) gm/dl Albumin 4.0 (3.4-5.0) gm/dl Globulin 3.8 (2.5-4.0) gm/dl Albumin/Globulin Ratio 1.1 (0.9-2) Procalcitonin < 0.05 (0-0.5) ng/ml COVID-19 Eval Order SARS-CoV-2 (PCR) (Negative) Influ A Molecular Assay (Negative) Influ B Molecular Assay (Negative) 08/23/20 08/23/20 08/23/20 Range/Units 17:38 17:38 17:38 WBC (4.8-10.8) K/uL RBC (4.2-5.4) M/uL Hgb (12.0-16.0) g/dL Hct (37-47) % MCV (80-100) fL MCH (25-34) pg MCHC (32-36) g/dL RDW Std Deviation (36.4-46.3) fL RDW Coeff of Oj (11.5-14.5) % Plt Count (130-400) K/uL MPV (7.4-10.4) fL Immature Gran % (Auto) % Neut % (Auto) % Lymph % (Auto) % Cocke % (Auto) % Eos % (Auto) % Baso % (Auto) % Neut # (Auto) (1.4-6.5) K/uL Lymph # (Auto) (1.2-3.4) K/uL Cocke # (Auto) (0.11-0.59) K/uL Eos # (Auto) (0-0.5) K/uL Baso # (Auto) (0-0.2) K/uL Immature Gran # (Auto) (0.00-0.02) K/uL PT 12.1 H (9.0-12.0) Seconds INR 1.2 H (0.9-1.1) APTT 26.4 (21.0-31.0) Seconds PTT Ratio 1.0 Sodium (136-145) mmol/L Potassium (3.5-5.1) mmol/L Chloride (98-107) mmol/L Carbon Dioxide (21-32) mmol/L Anion Gap (3-11) BUN (7-18) mg/dl Creatinine (0.6-1.2) mg/dl Est Cr Clr Drug Dosing ml/min Est GFR ( Amer) ml/min Est GFR (Non-Af Amer) ml/min BUN/Creatinine Ratio (10-20) Glucose (70-99) mg/dl Lactate 2.1 H* (0.4-2.0) mmol/L Calcium (8.5-10.1) mg/dl Magnesium (1.8-2.4) mg/dl Total Bilirubin (0.2-1) mg/dl AST (15-37) U/L ALT (12-78) U/L Alkaline Phosphatase (45-117) U/L Troponin I (0-0.045) ng/ml Total Protein (6.4-8.2) gm/dl Albumin (3.4-5.0) gm/dl Globulin (2.5-4.0) gm/dl Albumin/Globulin Ratio (0.9-2) Procalcitonin (0-0.5) ng/ml COVID-19 Eval Order SARS-CoV-2 (PCR) (Negative) Influ A Molecular Assay Negative (Negative) Influ B Molecular Assay Negative (Negative) 08/23/20 08/23/20 08/23/20 Range/Units 17:38 17:38 20:13 WBC (4.8-10.8) K/uL RBC (4.2-5.4) M/uL Hgb (12.0-16.0) g/dL Hct (37-47) % MCV (80-100) fL MCH (25-34) pg MCHC (32-36) g/dL RDW Std Deviation (36.4-46.3) fL RDW Coeff of Oj (11.5-14.5) % Plt Count (130-400) K/uL MPV (7.4-10.4) fL Immature Gran % (Auto) % Neut % (Auto) % Lymph % (Auto) % Cocke % (Auto) % Eos % (Auto) % Baso % (Auto) % Neut # (Auto) (1.4-6.5) K/uL Lymph # (Auto) (1.2-3.4) K/uL Cocke # (Auto) (0.11-0.59) K/uL Eos # (Auto) (0-0.5) K/uL Baso # (Auto) (0-0.2) K/uL Immature Gran # (Auto) (0.00-0.02) K/uL PT (9.0-12.0) Seconds INR (0.9-1.1) APTT (21.0-31.0) Seconds PTT Ratio Sodium (136-145) mmol/L Potassium (3.5-5.1) mmol/L Chloride (98-107) mmol/L Carbon Dioxide (21-32) mmol/L Anion Gap (3-11) BUN (7-18) mg/dl Creatinine (0.6-1.2) mg/dl Est Cr Clr Drug Dosing ml/min Est GFR ( Amer) ml/min Est GFR (Non-Af Amer) ml/min BUN/Creatinine Ratio (10-20) Glucose (70-99) mg/dl Lactate 1.6 (0.4-2.0) mmol/L Calcium (8.5-10.1) mg/dl Magnesium (1.8-2.4) mg/dl Total Bilirubin (0.2-1) mg/dl AST (15-37) U/L ALT (12-78) U/L Alkaline Phosphatase (45-117) U/L Troponin I (0-0.045) ng/ml Total Protein (6.4-8.2) gm/dl Albumin (3.4-5.0) gm/dl Globulin (2.5-4.0) gm/dl Albumin/Globulin Ratio (0.9-2) Procalcitonin (0-0.5) ng/ml COVID-19 Eval Order Covid19 at [facility] SARS-CoV-2 (PCR) NEGATIVE (Negative) Influ A Molecular Assay (Negative) Influ B Molecular Assay (Negative) Administered Medications Discontinued Medications Albuterol (Albut/Ipratrop 3mg/0.5mg Neb 3 Ml Vial) 3 ml NEB NOW STA Stop: 08/23/20 17:33 Last Admin: 08/23/20 17:54 Dose: 3 ml Documented by: [id number] Benzonatate (Benzonatate 100 Mg Capsule) 100 mg PO NOW ONE Stop: 08/23/20 17:33 Last Admin: 08/23/20 18:23 Dose: 100 mg Documented by: [id number] Hydrocodone Bit/Homatropine Methylb (Hydrocodone/Homatropine Syrup 5mg/1.5mg 5ml Udp) 5 ml PO NOW STA Stop: 08/23/20 20:15 Last Admin: 08/23/20 20:34 Dose: 5 ml Documented by: [id number] Cefepime HCl (Maxipime) 2,000 mg in 20 mls @ 5 mls/min IV NOW STA; Protocol Stop: 08/23/20 17:35 Last Admin: 08/23/20 18:23 Dose: 5 mls/min Documented by: [id number] Sodium Chloride (Nss 1000ml) 500 mls @ 999 mls/hr IV .Q31M ONE Stop: 08/23/20 18:02 Last Infusion: 08/23/20 19:19 Dose: 0 mls/hr Documented by: [id number] Admin: 08/23/20 18:24 Dose: 999 mls/hr Documented by: [id number] Sodium Chloride (Nss 1000ml) 500 mls @ 999 mls/hr IV .Q31M ONE Stop: 08/23/20 18:45 Last Infusion: 08/23/20 19:19 Dose: 0 mls/hr Documented by: [id number] Infusion: 08/23/20 19:18 Dose: 0 mls/hr Documented by: [id number] Admin: 08/23/20 18:24 Dose: 999 mls/hr Documented by: [id number] Methylprednisolone (Methylprednisolone 125 Mg/2 Ml Vial) 60 mg IV NOW STA Stop: 08/23/20 17:33 Last Admin: 08/23/20 18:23 Dose: 60 mg Documented by: [id number] Imaging Data Radiologist's Impression: Chest X-Ray 08/23/20 17:33 XR chest 1V portable CLINICAL HISTORY: SEPSIS COMPARISON STUDY: 05/15/2020 FINDINGS: The heart is mildly enlarged. There is a right-sided A-Port catheter present. There is mild interstitial thickening similar to the prior study. Since the prior study, the patient has developed a right lower lung zone airspace opacity suspicious for a pneumonia. Clinical and radiographic follow-up is recommended.[ IMPRESSION: 1. Cardiomegaly 2. Persistent interstitial thickening 3. Interval development of right lower lung zone airspace opacities suspicious for pneumonia. Clinical and radiographic follow-up are recommended. ACT 112: Negative or not required by law. Electronically signed by: Tanner Boss M.D. 08/23/2020 6:21 PM Discharge Plan Visit Data Chief Complaint: Illness Stated Complaint: COUGHING, SOB, DIZZY ED Provider: Jimmie Fairchild Discharge Problem: SOB (shortness of breath), Leukocytosis, Cough, Pneumonia, Acute hyperkalemia Patient Disposition: Admitted As Inpatient Condition: Fair Discharge Instructions Interventions: ED Discharge Assessment Last Done: 08/23/20 22:15 Discharge Problem: Leukocytosis Qualifiers: Leukocytosis type: unspecified Qualified Code(s): D72.829 - Elevated white blood cell count, unspecified Pneumonia Qualifiers: Pneumonia type: due to unspecified organism Laterality: right Lung location: lower lobe of lung Qualified Code(s): J18.9 - Pneumonia, unspecified organism
[2020-08-23 17:50] LABS: Basophils # (auto) 0.04 K/uL (0-0.2); Basophils % (auto) 0.2 %; Eosinophils # (auto) 0.12 K/uL (0-0.5); Eosinophils % (auto) 0.7 %; Hematocrit (blood only) 36.8 % (37-47); Hemoglobin 11.4 g/dL (12.0-16.0); Immature Granulocytes # (auto) 0.05 K/uL (0.00-0.02); Immature Granulocytes % (auto) 0.3 %; Lymphocytes # (auto) 1.18 K/uL (1.2-3.4); Lymphocytes % (auto) 7.3 %; Mean Corpuscular Hemoglobin 28.4 pg (25-34); Mean Corpuscular Volume 91.8 fL (80-100); Mean Platelet Volume 10.1 fL (7.4-10.4); Monocytes # (auto) 0.97 K/uL (0.11-0.59); Neutrophils % (auto) 85.5 %; Platelet Count 223 K/uL (130-400); RDW Coefficient of Variation 16.5 % (11.5-14.5); RDW Standard Deviation 54.9 fL (36.4-46.3); Red Blood Count 4.01 M/uL (4.2-5.4); White Blood Count 16.16 K/uL (4.8-10.8)
[2020-08-23 18:03] LABS: INR 1.2 (0.9-1.1); Partial Thromboplastin Time 26.4 Seconds (21.0-31.0); Prothrombin Time 12.1 Seconds (9.0-12.0)
[2020-08-23 18:09] LABS: BUN Creatinine Ratio 20.6 (10-20); Calcium 9.1 mg/dl (8.5-10.1); Creatinine Clr Calc Pharmacy 28.2 ml/min; Est GFR (African American) 32.2 ml/min; Est GFR (Non-African American) 27.8 ml/min; Magnesium 2.3 mg/dl (1.8-2.4)
[2020-08-23 18:12] LABS: Influenza A virus by PCR Negative (Negative); Influenza B virus by PCR Negative (Negative)
[2020-08-23 18:14] LABS: Albumin Globulin Ratio 1.1 (0.9-2); Bilirubin,Total 0.9 mg/dl (0.2-1); Globulin 3.8 gm/dl (2.5-4.0); Total Protein 7.8 gm/dl (6.4-8.2); Troponin I 0.02 ng/ml (0-0.045)
--- NOTE | 2020-08-23 18:22 | XRay Report ---
XR chest 1V portable CLINICAL HISTORY: SEPSIS COMPARISON STUDY: 05/15/2020 FINDINGS: The heart is mildly enlarged. There is a right-sided A-Port catheter present. There is mild interstitial thickening similar to the prior study. Since the prior study, the patient has developed a right lower lung zone airspace opacity suspicious for a pneumonia. Clinical and radiographic follo w-up is recommended.[ IMPRESSION: 1. Cardiomegaly 2. Persistent interstitial thickening 3. Interval development of right lower lung zone airspace opacities suspicious for pneumonia. Clinica l and radiographic follow-up are recommended. ACT 112: Negative or not required by law. Electronically signed by: Tanner Boss M.D. 08/23/2020 6:21 PM
[2020-08-23] MEDS ORDERED: HYDROcodone/HOMATROPINE SYRUP 5MG/1.5MG 5ML UDP PO STA (20:14)
--- NOTE | 2020-08-23 20:31 | History & Physical Report ---
Date of Service August 23, 2020 Assessment & Plan (1) Right lower lobe pneumonia: Pulmicort Respules 0.5 mg inhaled twice daily Zosyn 4.5 g IV every 8 hours Duonebs every 4 hours while awake and every 2 hours when necessary. Nasal cannula oxygen, titrate to keep pulse ox around 94% Guaifenesin extended release 600 mg p.o. twice daily Breo Ellipta 1 puff daily Present on Admission?: Yes (2) Chronic cough: Chronic cough/chronic aspiration/dysphagia/pulmonary hypertension- Her present cough is likely aggravated by the right lower lobe pneumonia. Would stop valsartan, and allow at least 2 weeks to see if she has an ARB related cough For symptomatic treatment, placed on Hycodan syrup 5 mils p.o. every 4 hours as needed Present on Admission?: Yes (3) LPRD (laryngopharyngeal reflux disease): LPRD/GERD/dysphagia/chronic aspiration- Continue pantoprazole 40 mg daily Add famotidine 20 mg IV every 12 hours Continue Carafate 1 g p.o. twice daily with meals Patient will need to follow-up with gastroenterology for completion of endoscopy after her pneumonia is resolved Patient has had a significant work-up in the past, and has recently seen speech therapy. Has had swallowing studies in the past as well. Present on Admission?: Yes (4) Diabetes: Continue Lantus insulin 16 units subcu daily Placed on Accu-Cheks before meals and at bedtime with NovoLog coverage per scale Present on Admission?: Yes (5) GERD (gastroesophageal reflux disease): See above Present on Admission?: Yes (6) Dysphagia: See above Present on Admission?: Yes (7) Pulmonary hypertension: See above Present on Admission?: Yes (8) Chronic kidney disease, stage 4 (severe): CKD stage IV/hyperkalemia Creatinine 1.67 upon admission, with range 1.93-2.69. Potassium 6.0 upon admission Holding spironolactone and valsartan Follow laboratory serially Present on Admission?: Yes (9) CAD (coronary artery disease): CAD/hypertension/chronic diastolic CHF/atrial flutter with RVR/PAD Continue Xarelto, nitroglycerin sublingual as needed, nebivolol, isosorbide mononitrate, clopidogrel. For now, hold bumetanide Present on Admission?: Yes (10) Chronic diastolic (congestive) heart failure: See above Present on Admission?: Yes (11) Atrial flutter with rapid ventricular response: See above Present on Admission?: Yes (12) Peripheral vascular disease: See above Present on Admission?: Yes (13) Breast cancer: (14) Gout: (15) Hyperkalemia: See above Present on Admission?: Yes History of Present Illness Chief Complaint: The patient presents to the emergency department with shortness of breath and cough present over the past 2 years, but worsened over the past 2 weeks. Primary Care Provider: Tanner López MD The patient is 85-year-old female with a past medical history including breast cancer, CAD, atrial flutter with RVR, PAD, carotid artery stenosis, GERD, gout, diabetes mellitus, LPRD, dysphagia, chronic aspiration, pulmonary hypertension, CKD stage IV and chronic anticoagulation. To further assess the patient's persistent cough over the past 2 years, the patient underwent endoscopy earlier in the day, but she became hypoxic in the endoscopy procedure had to be stopped. The patient has had the COVID-19 vaccine, and she was COVID-19 negative in ED. Pertinent abnormal laboratories: WBC 16.16, hemoglobin 11.4, potassium 6.0, glucose 208, creatinine 1.67, lactic acid 2.1. Chest x-ray shows a right lower lobe pneumonia. Treatment by the ED included the following: Cefepime 2 g IV, Solu-Medrol 60 mg IV and a DuoNeb. Allergies Allergy/AdvReac Type Severity Reaction Status Date / Time cat dander Allergy Intermediate itching Verified 08/23/20 08:32 eyes, blisters pseudoephedrine AdvReac Intermediate Hallucinati Verified 08/23/20 08:32 ons Home Medications Medication Instructions Recorded Confirmed Type Xarelto 15 mg PO QPM #30 tab 12/02/17 08/23/20 Rx albuterol sulfate 1.25 mg INH Q6H PRN #90 ml 12/02/17 08/23/20 Rx clopidogrel 75 mg tablet 75 mg PO QPM #90 tab 12/11/18 08/23/20 History fluticasone 232 mcg-salmeterol 14 1 puffs INHALATION QPM #1 ea 12/11/18 08/23/20 History mcg/actuation breath activated powdr multivitamin 1 tab PO QAM 12/11/18 08/23/20 History albuterol sulfate 90 mcg/actuation 2 puffs INHALATION Q4H PRN #1 gm 02/18/19 08/23/20 History aerosol inhaler coenzyme Q10 100 mg capsule 100 mg PO QAM cap 02/18/19 08/23/20 History denosumab 120 mg/1.7 mL (70 mg/mL) 120 mg SUBCUT MONTHLY ml 02/18/19 08/23/20 History subcutaneous solution docusate sodium 100 mg capsule 100 mg PO HS cap 02/18/19 08/23/20 History exemestane 25 mg tablet 25 mg PO QAM tab 02/18/19 08/23/20 History insulin aspart U-100 100 unit/mL See Rx Instructions SUBCUT 02/18/19 08/23/20 History subcutaneous solution .COMPLEX ml isosorbide mononitrate 120 mg 120 mg PO QAM #90 tab 02/18/19 08/23/20 History tablet,extended release 24 hr melatonin 5 mg capsule 5 mg PO QPM PRN cap 02/18/19 08/23/20 History nebivolol 10 mg tablet 10 mg PO QPM tab 02/18/19 08/23/20 History nitroglycerin 0.4 mg sublingual 0.4 mg SL Q5M PRN #25 tab 02/18/19 08/23/20 History tablet cholecalciferol (vitamin D3) 25 1,000 units PO QAM 02/23/19 08/23/20 History mcg (1,000 unit) capsule spironolactone 25 mg tablet 25 mg PO UD tab 08/19/19 08/23/20 History clobetasol 0.05 % shampoo 1 appln TOP DAILY PRN 10/07/19 08/23/20 History ketoconazole 2 % shampoo 1 applic TOPICAL DAILY PRN ml 01/01/20 08/23/20 History pantoprazole 40 mg tablet,delayed 40 mg PO QAM 02/10/20 08/23/20 History release atorvastatin [Lipitor] 40 mg PO QPM 05/13/20 08/23/20 History fluticasone propionate [Flonase 1 sprays INTNAS BID PRN 05/13/20 08/23/20 History Allergy Relief] hydrocodone-chlorpheniramine 2.5 - 5 ml PO Q12H PRN #115 ml 05/17/20 08/23/20 Rx valsartan 40 mg tablet 40 mg PO QAM tab 06/01/20 08/23/20 History azelastine 137 mcg (0.1 %) nasal 2 spray INTRANASAL DAILY #30 ml 06/16/20 08/23/20 Rx spray aerosol calcium carb-magnesium carb 1 tab PO BID 08/01/20 08/23/20 History famotidine [Acid Metal Wire Coating Operator 20 mg PO QAM 08/16/20 08/23/20 History (famotidine)] bumetanide 2 mg PO QAM 08/23/20 08/23/20 History levothyroxine 150 mcg PO DAILY 08/23/20 08/23/20 History pramipexole 0.25 mg PO DAILY 08/23/20 08/23/20 History sucralfate 10 ml PO BID PRN 08/23/20 08/23/20 History Past Med/Surg History Medical History Aspiration, chronic pulmonary Asthma USES PRN INH BID ON AVERAGE Atrial fibrillation DX 2017 - ON XARELTO - FOLLOWS W/ DR. JEONG Breast cancer 2006 - LEFT MASTECTOMY + CHEMO/RADIATION REPORTS REOCCURRENCE OF BREAST CANCER TO RT 4th & 5th RIBS (oral/injectable medication) CAD (coronary artery disease) Chronic anticoagulation Chronic cough Chronic diastolic (congestive) heart failure Chronic kidney disease, stage 4 (severe) follows with Dr. Nagel Diabetes mellitus Dysphagia Dyspnea on exertion GERD (gastroesophageal reflux disease) Hyperlipidemia Hypertension Hypothyroidism Insulin pump in place Osteoarthritis Port-A-Cath in place Rt chest Pulmonary hypertension follows with [facility] pul[facility]ology Pulmonary hypertension Sleep apnea CPAP Urinary leakage Surgical History History of appendectomy History of breast biopsy History of cardiac cath 2017 - CP - [facility] - 2 STENTS - FOLLOWS W/ DR. JEONG History of carpal tunnel release of both wrists History of colonoscopy History of heart artery stent X 2 (2017) History of left mastectomy pt denies limb restrictions History of tonsillectomy and adenoidectomy History of total abdominal hysterectomy and bilateral salpingo-oophorectomy Family History Father Myocardial infarction Heart disease Mother Hypertension Other No family history of adverse response to anesthesia No family history of bleeding disorder Social History Smoking Status: Never smoker Second Hand Exposure: No; Hx Alcohol Use: No Hx Substance Use: No Preferred Language: Upper Sorbian Communication Ability: Effective Construction Stonemason Required: No Beliefs That Will Affect Care: None marital status: / Current Living Situation: Alone current occupational status: retired 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 How many Children do You have Comment: 4 sons - one suffered a broken neck during wrestling practice, became quadraplegic and 6 years later Other Information That Helps Us Care for You: No other: One son is MD (family practice in [place]) Feels Safe at Home: Yes Safety Concerns: Feels Safe At This Time Assistive Devices: Denture - Lower, Glasses and Hearing Aid - Bilateral Assistive Devices Comment: lower partial Review of Systems Review of Systems: The patient denies chest pain, palpitations, lower extremity swelling, sore throat, fevers, chills, sweats, nausea, vomiting, diarrhea , constipation, abdominal pain, pelvic pain, blood in urine or stool, dysuria, urinary frequency or urgency, lightheadedness, dizziness, headache, memory loss, loss of consciousness, rash, abnormal bruising or bleeding, imbalance, focal or generalized weakness, numbness or tingling in arms or legs, generalized arthralgias or myalgias, back or neck pain, or night sweats. The review of systems is otherwise negative other than for that already noted above, and at least 10 systems have been reviewed. Physical Exam Physical Exam: The patient is awake, alert and oriented 3, well developed and well nourished, normocephalic and atraumatic, lying in bed and in no acute distress. HEENT--PERRL, EOMI, mucous membranes and oropharynx dry. Neck--supple. No JVD. No bruits. Thyroid normal, trachea midline, no adenopathy. Heart--normal S1 and S2. No murmurs, rubs or gallops. Lungs--decreased breath breath sounds right base. Mild respiratory distress, no accessory muscle use. Persistent cough Abdomen--normal bowel sounds and soft. Nontender. Nondistended, no hernias or masses, no organomegaly. Extremities--no cyanosis or clubbing. No edema. Dermatologic--normal skin turgor, normal color, no abnormal lymph nodes, no rash. Neurologic--cranial nerves II through XII grossly intact. Rheumatologic--normal range of motion. Psychiatric--normal affect. Results & Data Results & Data ([facility]) Vital Signs (Past 12 Hours) Vital Signs Temp Pulse Pulse Resp BP Pulse Ox 08/23/20 19:01 80 24 161/116 H 08/23/20 18:30 79 28 H 170/76 H 92 08/23/20 18:01 76 24 167/80 H 95 08/23/20 17:55 73 22 95 08/23/20 17:54 76 20 100 08/23/20 17:50 99 08/23/20 17:37 77 27 H 120/98 98 08/23/20 16:55 99.7 F H 92 H 24 171/91 H 91 Laboratory Results Laboratory Results WBC 16.16 K/uL (4.8-10.8) H 08/23/20 17:38 RBC 4.01 M/uL (4.2-5.4) L 08/23/20 17:38 Hgb 11.4 g/dL (12.0-16.0) L 08/23/20 17:38 Hct 36.8 % (37-47) L 08/23/20 17:38 MCV 91.8 fL (80-100) 08/23/20 17:38 MCH 28.4 pg (25-34) 08/23/20 17:38 MCHC 31.0 g/dL (32-36) L 08/23/20 17:38 RDW Std Deviation 54.9 fL (36.4-46.3) H 08/23/20 17:38 RDW Coeff of Oj 16.5 % (11.5-14.5) H 08/23/20 17:38 Plt Count 223 K/uL (130-400) 08/23/20 17:38 MPV 10.1 fL (7.4-10.4) 08/23/20 17:38 Immature Gran % (Auto) 0.3 % 08/23/20 17:38 Neut % (Auto) 85.5 % 08/23/20 17:38 Lymph % (Auto) 7.3 % 08/23/20 17:38 Cand[place] % (Auto) 6.0 % 08/23/20 17:38 Eos % (Auto) 0.7 % 08/23/20 17:38 Baso % (Auto) 0.2 % 08/23/20 17:38 Neut # (Auto) 13.80 K/uL (1.4-6.5) H 08/23/20 17:38 Lymph # (Auto) 1.18 K/uL (1.2-3.4) L 08/23/20 17:38 Candler # (Auto) 0.97 K/uL (0.11-0.59) H 08/23/20 17:38 Eos # (Auto) 0.12 K/uL (0-0.5) 08/23/20 17:38 Baso # (Auto) 0.04 K/uL (0-0.2) 08/23/20 17:38 Immature Gran # (Auto) 0.05 K/uL (0.00-0.02) H 08/23/20 17:38 PT 12.1 Seconds (9.0-12.0) H 08/23/20 17:38 INR 1.2 (0.9-1.1) H 08/23/20 17:38 APTT 26.4 Seconds (21.0-31.0) 08/23/20 17:38 PTT Ratio 1.0 08/23/20 17:38 Sodium 135 mmol/L (136-145) L 08/23/20 17:38 Potassium 6.0 mmol/L (3.5-5.1) H 08/23/20 17:38 Chloride 106 mmol/L (98-107) 08/23/20 17:38 Carbon Dioxide 22 mmol/L (21-32) 08/23/20 17:38 Anion Gap 6.0 (3-11) 08/23/20 17:38 BUN 34 mg/dl (7-18) H 08/23/20 17:38 Creatinine 1.67 mg/dl (0.6-1.2) H 08/23/20 17:38 Est Cr Clr Drug Dosing 28.2 ml/min 08/23/20 17:38 Est GFR ( Amer) 32.2 ml/min 08/23/20 17:38 Est GFR (Non-Af Amer) 27.8 ml/min 08/23/20 17:38 BUN/Creatinine Ratio 20.6 (10-20) H 08/23/20 17:38 Glucose 208 mg/dl (70-99) H 08/23/20 17:38 POC Glucose 253 mg/dl (70-99) H 08/23/20 23:17 Lactate 1.6 mmol/L (0.4-2.0) 08/23/20 20:13 Calcium 9.1 mg/dl (8.5-10.1) 08/23/20 17:38 Magnesium 2.3 mg/dl (1.8-2.4) 08/23/20 17:38 Total Bilirubin 0.9 mg/dl (0.2-1) 08/23/20 17:38 AST 25 U/L (15-37) 08/23/20 17:38 ALT 25 U/L (12-78) 08/23/20 17:38 Alkaline Phosphatase 99 U/L (45-117) 08/23/20 17:38 Troponin I 0.020 ng/ml (0-0.045) 08/23/20 17:38 Total Protein 7.8 gm/dl (6.4-8.2) 08/23/20 17:38 Albumin 4.0 gm/dl (3.4-5.0) 08/23/20 17:38 Globulin 3.8 gm/dl (2.5-4.0) 08/23/20 17:38 Albumin/Globulin Ratio 1.1 (0.9-2) 08/23/20 17:38 Procalcitonin < 0.05 ng/ml (0-0.5) 08/23/20 17:38 Urine Color Yellow 08/23/20 23:20 Urine Appearance Clear (Clear) 08/23/20 23:20 Urine pH 5.0 (4.5-7.5) 08/23/20 23:20 Ur Specific Mumford 1.023 (1.000-1.030) 08/23/20 23:20 Urine Protein 3+ (Negative) H 08/23/20 23:20 Urine Glucose (UA) 2+ (Negative) H 08/23/20 23:20 Urine Ketones 1+ (Negative) H 08/23/20 23:20 Urine Blood 1+ (Negative) H 08/23/20 23:20 Urine Nitrite Negative (Negative) 08/23/20 23:20 Urine Bilirubin Negative (Negative) 08/23/20 23:20 Urine Urobilinogen Negative (Negative) 08/23/20 23:20 Ur Leukocyte Esterase Negative (Negative) 08/23/20 23:20 Urine WBC (Auto) 1-5 /hpf (0-5) 08/23/20 23:20 Urine RBC (Auto) 0-4 /hpf (0-4) 08/23/20 23:20 U Hyaline Cast (Auto) 1-5 /lpf (0-5) 08/23/20 23:20 U Epithel Cells (Auto) 5-10 /lpf (0-5) H 08/23/20 23:20 Urine Bacteria (Auto) Negative (Negative) 08/23/20 23:20 COVID-19 Eval Order Covid19 at [facility] 08/23/20 17:38 SARS-CoV-2 (PCR) NEGATIVE (Negative) 08/23/20 17:38 Influ A Molecular Assay Negative (Negative) 08/23/20 17:38 Influ B Molecular Assay Negative (Negative) 08/23/20 17:38 Impressions Chest X-Ray 08/23/20 17:33 XR chest 1V portable CLINICAL HISTORY: SEPSIS COMPARISON STUDY: 05/15/2020 FINDINGS: The heart is mildly enlarged. There is a right-sided A-Port catheter present. There is mild interstitial thickening similar to the prior study. Since the prior study, the patient has developed a right lower lung zone airspace opacity suspicious for a pneumonia. Clinical and radiographic follow-up is recommended.[ IMPRESSION: 1. Cardiomegaly 2. Persistent interstitial thickening 3. Interval development of right lower lung zone airspace opacities suspicious for pneumonia. Clinical and radiographic follow-up are recommended. ACT 112: Negative or not required by law. Electronically signed by: Tanner Boss M.D. 08/23/2020 6:21 PM Code Status & VTE Plan Code Status Full code VTE Prophylaxis Plan VTE Prophylaxis will be ordered: Yes PG Care Time/CCT Total # of Minutes Spent Total Time Spent with Patient: Total time spent is greater than 50% in coordination of care (as documented) at patient's floor/unit and/or counseling patient: Coding Level of Care Code 36487 Initial Inpt Care Lvl 3 Diagnoses Right lower lobe pneumonia J18.9 Chronic cough R05 LPRD (laryngopharyngeal reflux disease) K21.9 Diabetes E11.9 GERD (gastroesophageal reflux disease) K21.9 Dysphagia R13.10 Pulmonary hypertension I27.20 Chronic kidney disease, stage 4 (severe) N18.4 CAD (coronary artery disease) I25.10 Chronic diastolic (congestive) heart failure I50.32 Atrial flutter with rapid ventricular response I48.92 Peripheral vascular disease I73.9 Breast cancer C50.919 Gout M10.9 Hyperkalemia E87.5
[2020-08-23] MEDS ORDERED: INSULIN ASPART PER UNIT SQ SCH (22:46)
[2020-08-23] MEDS ORDERED: PIPERACILL/TAZOBAC CONSULT ACTIVE PRN (22:46)
[2020-08-23] MEDS ORDERED: MELATONIN 3 MG TAB PO PRN (22:46)
[2020-08-23] MEDS ORDERED: INSULIN ASPART 100 UNITS/ML 3 ML PEN SC SCH (22:46)
[2020-08-23] MEDS ORDERED: ONDANSETRON INJ 2 MG/ML 2 ML VIAL IV PRN (22:46)
[2020-08-23] MEDS ORDERED: GLUCAGON FOR INJ 1 MG VIAL SQ PRN (22:46)
[2020-08-23] MEDS ORDERED: GLUCOSE 10 TABS/TUBE PO PRN (22:46)
[2020-08-23] MEDS ORDERED: GLUCOSE 40% GEL 15 GM TUBE PO PRN (22:46)
[2020-08-23] MEDS ORDERED: DEXTROSE 50% 50 ML SYRINGE IV PRN (22:46)
[2020-08-23] MEDS ORDERED: NITROGLYCERIN SL 0.4 MG/TAB TAB SL PRN (22:46)
[2020-08-23 23:36] LABS: Appearance Urine Clear (Clear); Bacteria Urine Automated Negative (Negative); Bilirubin Urine Negative (Negative); Blood Urine 1+ (Negative); Color Urine Yellow; Glucose Urine UA 2+ (Negative); Ketones Urine 1+ (Negative); Leukocyte Esterase Urine Negative (Negative); Nitrite Urine Negative (Negative); Protein Urine 3+ (Negative); RBC Urine Automated 0-4 /hpf (0-4); Specific Gravity Urine 1.023 (1.000-1.030); Urobilinogen Urine Negative (Negative)
[2020-08-23] MEDS: ATORVASTATIN 40 MG TAB PO SCH (23:52)
[2020-08-23] MEDS: CLOPIDOGREL BISULFATE 75 MG TAB PO SCH (23:53)
[2020-08-23] MEDS: FAMOTIDINE 20 MG in SYRINGE 3 ML IV SCH (23:53)
[2020-08-23] MEDS: DOCUSATE SODIUM 100 MG CAP PO SCH (23:53)
[2020-08-23] MEDS: HYDROcodone/HOMATROPINE SYRUP 5MG/1.5MG 5ML UDP PO PRN (23:54)
[2020-08-24] MEDS ORDERED: ALBUTEROL 0.083% NEBU SOLN 3 ML VIAL INH PRN (00:19)
[2020-08-24] MEDS ORDERED: GLUCAGON FOR INJ 1 MG VIAL SQ PRN (00:30)
[2020-08-24] MEDS ORDERED: CARBOHYDRATES FOR HYPOGLYCEMIA PO PRN (00:30)
[2020-08-24] MEDS ORDERED: DEXTROSE 50% 50 ML SYRINGE IV PRN (00:30)
[2020-08-24] MEDS ORDERED: GLUCOSE 10 TABS/TUBE PO PRN (00:30)
[2020-08-24] MEDS ORDERED: GLUCOSE 40% GEL 15 GM TUBE PO PRN (00:30)
[2020-08-24] MEDS: RIVAROXABAN 15 MG TAB PO SCH ×2 (01:16→20:49)
[2020-08-24] MEDS: INSULIN ASPART 100 UNITS/ML 3 ML PEN SC SCH ×5 (01:16→20:49)
[2020-08-24] MEDS: METOPROLOL TARTRATE 25 MG TAB PO SCH ×3 (01:16→20:49)
[2020-08-24] MEDS: INSULIN GLARGINE SOLOSTAR 100 UNITS/ML 3 ML PEN SC SCH ×2 (01:17→08:33)
[2020-08-24] MEDS: PIPERACILLIN/TAZOBACTAM 3.375 GM in DEXTROSE 5% 100 ML IV SCH ×2 (01:17→10:45)
[2020-08-24] MEDS: HYDROcodone/HOMATROPINE SYRUP 5MG/1.5MG 5ML UDP PO PRN ×3 (05:36→20:51)
[2020-08-24] MEDS: LEVOTHYROXINE SODIUM 150 MCG TABLET PO SCH (05:36)
[2020-08-24 06:21] LABS: Basophils # (auto) 0.01 K/uL (0-0.2); Basophils % (auto) 0.1 %; Estimated Average Glucose 192 mg/dl; Hemoglobin 11.2 g/dL (12.0-16.0); Hemoglobin A1C 8.3 % (4.5-5.6); Immature Granulocytes # (auto) 0.02 K/uL (0.00-0.02); Immature Granulocytes % (auto) 0.2 %; Lymphocytes # (auto) 0.91 K/uL (1.2-3.4); Lymphocytes % (auto) 9.3 %; Mean Corpuscular Hemoglobin 28.2 pg (25-34); Mean Corpuscular Hgb Conc 31.1 g/dL (32-36); Mean Corpuscular Volume 90.7 fL (80-100); Mean Platelet Volume 10.7 fL (7.4-10.4); Monocytes # (auto) 0.25 K/uL (0.11-0.59); Monocytes % (auto) 2.5 %; Neutrophils # (auto) 8.64 K/uL (1.4-6.5); Neutrophils % (auto) 87.9 %; Platelet Count 182 K/uL (130-400); RDW Coefficient of Variation 16.6 % (11.5-14.5); RDW Standard Deviation 54.4 fL (36.4-46.3); Red Blood Count 3.97 M/uL (4.2-5.4); White Blood Count 9.83 K/uL (4.8-10.8)
[2020-08-24 06:48] LABS: Albumin Level 3.4 gm/dl (3.4-5.0); Calcium 8.5 mg/dl (8.5-10.1); Creatinine Clr Calc Pharmacy 31.2 ml/min; Est GFR (African American) 36.1 ml/min; Est GFR (Non-African American) 31.2 ml/min; Magnesium 2.4 mg/dl (1.8-2.4); Potassium 5.5 mmol/L (3.5-5.1)
[2020-08-24 06:56] LABS: Albumin Globulin Ratio 0.9 (0.9-2); Bilirubin,Total 1.1 mg/dl (0.2-1); Globulin 3.8 gm/dl (2.5-4.0); Total Protein 7.2 gm/dl (6.4-8.2); Troponin I 0.055 ng/ml (0-0.045)
[2020-08-24] MEDS: BUDESONIDE 0.5 MG/2 ML VIAL (PULMICORT) NEB SCH ×2 (06:58→19:53)
[2020-08-24] MEDS: ALBUT/IPRATROP 3MG/0.5MG NEB 3 ML VIAL NEB SCH ×4 (07:01→19:53)
[2020-08-24] MEDS: CALCIUM CARBONATE 1250MG TAB PO SCH ×2 (08:00→20:48)
[2020-08-24] MEDS: PANTOprazole 40 MG TAB PO SCH (08:01)
[2020-08-24] MEDS: PRAMIPEXOLE DIHYDROCHLO 0.25 MG TAB PO SCH (08:01)
[2020-08-24] MEDS: BUMETANIDE 1 MG TAB PO SCH (08:01)
[2020-08-24] MEDS: CHOLECALCIFEROL 1,000 UNITS 25 MCG TAB PO SCH (08:01)
[2020-08-24] MEDS: MULTIVITAMIN TAB PO SCH (08:01)
[2020-08-24] MEDS: ISOSORBIDE MONO EXTENDED REL 60 MG TABCR PO SCH (08:01)
[2020-08-24] MEDS: FLUTICASONE/VILANTEROL 200/25MCG 14 PUFFS/INHALER INH SCH (08:02)
[2020-08-24] MEDS: SUCRALFATE 1 GM/10 ML UDC PO SCH ×2 (08:12→17:21)
[2020-08-24] MEDS ORDERED: NON-FORMULARY MEDICATION (Coenzyme Q10 100 mg capsule) PO SCH (09:00)
[2020-08-24] MEDS: FAMOTIDINE 20 MG in SYRINGE 3 ML IV SCH (12:20)
--- NOTE | 2020-08-24 13:28 | Electrocardiogram Report ---
Test Reason : Blood Pressure : / mmHG Vent. Rate : 084 BPM Atrial Rate : 084 BPM P-R Int : 180 ms QRS Dur : 072 ms QT Int : 350 ms P-R-T Axes : 084 -52 047 degrees QTc Int : 413 ms Normal sinus rhythm Left axis deviation Borderline ECG When compared with ECG of 13-MAY-2020 16:25, QRS axis Shifted left T wave inversion no longer evident in Inferior leads Confirmed by Tl Tipton ([id number]) on 08/24/2020 1:27:39 PM Referred By: Tanner López Confirmed By:Tl Tipton
--- NOTE | 2020-08-24 13:29 | Hospitalist Progress Note ---
Date of Service August 24, 2020 Assessment & Plan (1) Aspiration, chronic pulmonary: Emily Narvaez is a 85y/o F with PMH breast cancer, CAD, atrial flutter with RVR, PAD, carotid artery stenosis, GERD, gout, diabetes mellitus, LPRD, dysphagia, chronic aspiration, pulmonary hypertension, CKD stage IV and chronic anticoagulation. Pneumonia: - Pulmicort Respules 0.5 mg inhaled twice daily - transition Zosyn to Augmentin - Duonebs every 4 hours while awake and every 2 hours when necessary. - Nasal cannula oxygen, titrate to keep pulse ox around 92% - Breo Ellipta 1 puff daily - continue pulm toilet with Incentive spirometry and flutter valve LPRD/GERD/dysphagia/chronic aspiration: - likely source of chronic cough in the absence of other findings on other studies - Continue pantoprazole 40 mg daily - Continue famotidine 20 mg IV every 12 hours - Continue Carafate 1 g p.o. twice daily with meals - Patient will need to follow-up with gastroenterology for completion of endoscopy after her pneumonia is resolved - EGD demonstrating signs of reflux that would potentially explain continued chronic cough Chronic kidney disease, stage 4 (severe): - Creatinine 1.67 upon admission (basedline 1.93-2.69) - Cr improved this AM to 1.52 - Potassium 6.0 upon admission, with downtrend this AM to 5.5 - Holding spironolactone - restart Valsartan - Follow laboratory serially CAD/hypertension/chronic diastolic CHF/atrial flutter with RVR/PAD: - Continue Xarelto, nebivolol, isosorbide mononitrate, clopidogrel. - hold bumetanide in the setting of FLORENCIA Diet: HH, Carb Consistent Code Status: Full Code DVT Ppx: home Xarelto (2) Hyperkalemia: (3) LPRD (laryngopharyngeal reflux disease): Admission and Anticipated Discharge Date Admission Date: August 23, 2020 Supervising Physician Co-Signing Physician Notes I personally examined the patient and verified all cunha points of history and exam, discussed case, and agree with decision making with Dr Dsouza. Ongoing cough, some dyspnea on exertion. Otherwise feeling okay. Vitals noted, in general she is awake and alert pleasant no distress. HEENT normocephalic atraumatic mucous membranes are moist. Right lower lung Rales otherwise clear. Probable aspiration pneumoniasuspect chronic laryngeal reflux leading to aspiration, I doubt this was really a procedural complication, but rather probab ly a sequelae of chronic aspiration, with her respiratory difficulty simply being unmasked with procedural sedation. Continue antibiotics and pulmonary toilet, wean oxygen as possible. Laryngeal pharyngeal refluxongoing outpatient management with GI. Strongly suspect this is the cause of her chronic cough Otherwise as above Subjective Feeling okay this morning, continuing to have concerns regarding her chronic cough. This is the larger concern she has at this time, cause that was what generated the need for the procedure yesterday. Ultimately feels fine still, but just frustrated as she does not have a clear answer for why the cough has last 2+ years. Review of Systems Review of Systems: All systems reviewed & are unremarkable except as noted in Subjective Physical Exam Constitutional: WD/WN, vitals as above Eyes: PERRL, conjunctivae normal, anicteric sclerae Respiratory: normal respiratory effort, + cough (intermittent) and able to speak in complete sentences; no respiratory distress and no labored breathing Auscultation: no crackles, no rales, no rhonchi (RLL) and no wheezes Cardiovascular: Rate/Rhythm: regular rate and regular rhythm Heart Sounds: no gallop, no murmur and no cardiac rub Vessels: normal peripheral pulses; no JVD Extremities: no edema Gastrointestinal (Abdomen): Inspection/Auscultation: normal bowel sounds; abdomen not distended Percussion/Palpation: abdomen soft; abdomen nontender and no guarding Musculoskeletal: no cyanosis or clubbing, extremities motor strength 5/5 Skin: no rashes, warm and dry Neurologic: PERRL, EOMI, accommodation nl, no face palsy, no dysarthria Psychiatric: Orientation: alert and oriented x 3 Results & Data Results & Data ([facility]) Vital Signs (Past 12 Hours) Vital Signs Temp Pulse Pulse Resp BP Pulse Ox 08/24/20 11:24 36.7 C 74 20 142/68 H 96 08/24/20 11:03 67 18 98 08/24/20 08:00 73 08/24/20 07:56 37.0 C 82 22 163/60 H 100 08/24/20 07:02 57 L 18 96 08/24/20 05:34 36.5 C 57 L 22 171/86 H 95 08/24/20 03:20 54 L 28 H 92 Laboratory Results 08/24/20 08/24/20 08/24/20 Range/Units 16:28 16:27 13:06 WBC (4.8-10.8) K/uL RBC (4.2-5.4) M/uL Hgb (12.0-16.0) g/dL Hct (37-47) % MCV (80-100) fL MCH (25-34) pg MCHC (32-36) g/dL RDW Std Deviation (36.4-46.3) fL RDW Coeff of Oj (11.5-14.5) % Plt Count (130-400) K/uL MPV (7.4-10.4) fL Immature Gran % (Auto) % Neut % (Auto) % Lymph % (Auto) % [place] % (Auto) % Eos % (Auto) % Baso % (Auto) % Neut # (Auto) (1.4-6.5) K/uL Lymph # (Auto) (1.2-3.4) K/uL [place] # (Auto) (0.11-0.59) K/uL Eos # (Auto) (0-0.5) K/uL Baso # (Auto) (0-0.2) K/uL Immature Gran # (Auto) (0.00-0.02) K/uL PT (9.0-12.0) Seconds INR (0.9-1.1) APTT (21.0-31.0) Seconds PTT Ratio Sodium (136-145) mmol/L Potassium (3.5-5.1) mmol/L Chloride (98-107) mmol/L Carbon Dioxide (21-32) mmol/L Anion Gap (3-11) BUN (7-18) mg/dl Creatinine (0.6-1.2) mg/dl Est Cr Clr Drug Dosing ml/min Est GFR ( Amer) ml/min Est GFR (Non-Af Amer) ml/min BUN/Creatinine Ratio (10-20) Glucose (70-99) mg/dl POC Glucose 338 H* 337 H* (70-99) mg/dl Estimat Average Glucose mg/dl Hemoglobin A1c (4.5-5.6) % Lactate (0.4-2.0) mmol/L Calcium (8.5-10.1) mg/dl Magnesium (1.8-2.4) mg/dl Total Bilirubin (0.2-1) mg/dl AST (15-37) U/L ALT (12-78) U/L Alkaline Phosphatase (45-117) U/L Troponin I 0.044 (0-0.045) ng/ml Total Protein (6.4-8.2) gm/dl Albumin (3.4-5.0) gm/dl Globulin (2.5-4.0) gm/dl Albumin/Globulin Ratio (0.9-2) Procalcitonin (0-0.5) ng/ml Urine Color Urine Appearance (Clear) Urine pH (4.5-7.5) Ur Specific [place] (1.000-1.030) Urine Protein (Negative) Urine Glucose (UA) (Negative) Urine Ketones (Negative) Urine Blood (Negative) Urine Nitrite (Negative) Urine Bilirubin (Negative) Urine Urobilinogen (Negative) Ur Leukocyte Esterase (Negative) Urine WBC (Auto) (0-5) /hpf Urine RBC (Auto) (0-4) /hpf U Hyaline Cast (Auto) (0-5) /lpf U Epithel Cells (Auto) (0-5) /lpf Urine Bacteria (Auto) (Negative) SARS-CoV-2 (PCR) (Negative) Influ A Molecular Assay (Negative) Influ B Molecular Assay (Negative) 08/24/20 08/24/20 08/24/20 Range/Units 11:21 07:35 05:36 WBC (4.8-10.8) K/uL RBC (4.2-5.4) M/uL Hgb (12.0-16.0) g/dL Hct (37-47) % MCV (80-100) fL MCH (25-34) pg MCHC (32-36) g/dL RDW Std Deviation (36.4-46.3) fL RDW Coeff of Oj (11.5-14.5) % Plt Count (130-400) K/uL MPV (7.4-10.4) fL Immature Gran % (Auto) % Neut % (Auto) % Lymph % (Auto) % [place] % (Auto) % Eos % (Auto) % Baso % (Auto) % Neut # (Auto) (1.4-6.5) K/uL Lymph # (Auto) (1.2-3.4) K/uL [place] # (Auto) (0.11-0.59) K/uL Eos # (Auto) (0-0.5) K/uL Baso # (Auto) (0-0.2) K/uL Immature Gran # (Auto) (0.00-0.02) K/uL PT (9.0-12.0) Seconds INR (0.9-1.1) APTT (21.0-31.0) Seconds PTT Ratio Sodium (136-145) mmol/L Potassium (3.5-5.1) mmol/L Chloride (98-107) mmol/L Carbon Dioxide (21-32) mmol/L Anion Gap (3-11) BUN (7-18) mg/dl Creatinine (0.6-1.2) mg/dl Est Cr Clr Drug Dosing ml/min Est GFR ( Amer) ml/min Est GFR (Non-Af Amer) ml/min BUN/Creatinine Ratio (10-20) Glucose (70-99) mg/dl POC Glucose 303 H* 294 H (70-99) mg/dl Estimat Average Glucose 192 mg/dl Hemoglobin A1c 8.3 H (4.5-5.6) % Lactate (0.4-2.0) mmol/L Calcium (8.5-10.1) mg/dl Magnesium (1.8-2.4) mg/dl Total Bilirubin (0.2-1) mg/dl AST (15-37) U/L ALT (12-78) U/L Alkaline Phosphatase (45-117) U/L Troponin I (0-0.045) ng/ml Total Protein (6.4-8.2) gm/dl Albumin (3.4-5.0) gm/dl Globulin (2.5-4.0) gm/dl Albumin/Globulin Ratio (0.9-2) Procalcitonin (0-0.5) ng/ml Urine Color Urine Appearance (Clear) Urine pH (4.5-7.5) Ur Specific [place] (1.000-1.030) Urine Protein (Negative) Urine Glucose (UA) (Negative) Urine Ketones (Negative) Urine Blood (Negative) Urine Nitrite (Negative) Urine Bilirubin (Negative) Urine Urobilinogen (Negative) Ur Leukocyte Esterase (Negative) Urine WBC (Auto) (0-5) /hpf Urine RBC (Auto) (0-4) /hpf U Hyaline Cast (Auto) (0-5) /lpf U Epithel Cells (Auto) (0-5) /lpf Urine Bacteria (Auto) (Negative) SARS-CoV-2 (PCR) (Negative) Influ A Molecular Assay (Negative) Influ B Molecular Assay (Negative) 08/24/20 08/24/20 08/23/20 Range/Units 05:36 05:36 23:20 WBC 9.83 (4.8-10.8) K/uL RBC 3.97 L (4.2-5.4) M/uL Hgb 11.2 L (12.0-16.0) g/dL Hct 36.0 L (37-47) % MCV 90.7 (80-100) fL MCH 28.2 (25-34) pg MCHC 31.1 L (32-36) g/dL RDW Std Deviation 54.4 H (36.4-46.3) fL RDW Coeff of Oj 16.6 H (11.5-14.5) % Plt Count 182 (130-400) K/uL MPV 10.7 H (7.4-10.4) fL Immature Gran % (Auto) 0.2 % Neut % (Auto) 87.9 % Lymph % (Auto) 9.3 % [place] % (Auto) 2.5 % Eos % (Auto) 0.0 % Baso % (Auto) 0.1 % Neut # (Auto) 8.64 H (1.4-6.5) K/uL Lymph # (Auto) 0.91 L (1.2-3.4) K/uL [place] # (Auto) 0.25 (0.11-0.59) K/uL Eos # (Auto) 0.00 (0-0.5) K/uL Baso # (Auto) 0.01 (0-0.2) K/uL Immature Gran # (Auto) 0.02 (0.00-0.02) K/uL PT (9.0-12.0) Seconds INR (0.9-1.1) APTT (21.0-31.0) Seconds PTT Ratio Sodium 137 (136-145) mmol/L Potassium 5.5 H (3.5-5.1) mmol/L Chloride 108 H (98-107) mmol/L Carbon Dioxide 25 (21-32) mmol/L Anion Gap 4.0 (3-11) BUN 33 H (7-18) mg/dl Creatinine 1.52 H (0.6-1.2) mg/dl Est Cr Clr Drug Dosing 31.2 ml/min Est GFR ( Amer) 36.1 ml/min Est GFR (Non-Af Amer) 31.2 ml/min BUN/Creatinine Ratio 22.0 H (10-20) Glucose 280 H (70-99) mg/dl POC Glucose (70-99) mg/dl Estimat Average Glucose mg/dl Hemoglobin A1c (4.5-5.6) % Lactate (0.4-2.0) mmol/L Calcium 8.5 (8.5-10.1) mg/dl Magnesium 2.4 (1.8-2.4) mg/dl Total Bilirubin 1.1 H (0.2-1) mg/dl AST 27 (15-37) U/L ALT 27 (12-78) U/L Alkaline Phosphatase 87 (45-117) U/L Troponin I 0.055 H* (0-0.045) ng/ml Total Protein 7.2 (6.4-8.2) gm/dl Albumin 3.4 (3.4-5.0) gm/dl Globulin 3.8 (2.5-4.0) gm/dl Albumin/Globulin Ratio 0.9 (0.9-2) Procalcitonin (0-0.5) ng/ml Urine Color Yellow Urine Appearance Clear (Clear) Urine pH 5.0 (4.5-7.5) Ur Specific [place] 1.023 (1.000-1.030) Urine Protein 3+ H (Negative) Urine Glucose (UA) 2+ H (Negative) Urine Ketones 1+ H (Negative) Urine Blood 1+ H (Negative) Urine Nitrite Negative (Negative) Urine Bilirubin Negative (Negative) Urine Urobilinogen Negative (Negative) Ur Leukocyte Esterase Negative (Negative) Urine WBC (Auto) 1-5 (0-5) /hpf Urine RBC (Auto) 0-4 (0-4) /hpf U Hyaline Cast (Auto) 1-5 (0-5) /lpf U Epithel Cells (Auto) 5-10 H (0-5) /lpf Urine Bacteria (Auto) Negative (Negative) SARS-CoV-2 (PCR) (Negative) Influ A Molecular Assay (Negative) Influ B Molecular Assay (Negative) 08/23/20 08/23/20 08/23/20 Range/Units 23:17 20:13 17:38 WBC (4.8-10.8) K/uL RBC (4.2-5.4) M/uL Hgb (12.0-16.0) g/dL Hct (37-47) % MCV (80-100) fL MCH (25-34) pg MCHC (32-36) g/dL RDW Std Deviation (36.4-46.3) fL RDW Coeff of Oj (11.5-14.5) % Plt Count (130-400) K/uL MPV (7.4-10.4) fL Immature Gran % (Auto) % Neut % (Auto) % Lymph % (Auto) % [place] % (Auto) % Eos % (Auto) % Baso % (Auto) % Neut # (Auto) (1.4-6.5) K/uL Lymph # (Auto) (1.2-3.4) K/uL [place] # (Auto) (0.11-0.59) K/uL Eos # (Auto) (0-0.5) K/uL Baso # (Auto) (0-0.2) K/uL Immature Gran # (Auto) (0.00-0.02) K/uL PT (9.0-12.0) Seconds INR (0.9-1.1) APTT (21.0-31.0) Seconds PTT Ratio Sodium (136-145) mmol/L Potassium (3.5-5.1) mmol/L Chloride (98-107) mmol/L Carbon Dioxide (21-32) mmol/L Anion Gap (3-11) BUN (7-18) mg/dl Creatinine (0.6-1.2) mg/dl Est Cr Clr Drug Dosing ml/min Est GFR ( Amer) ml/min Est GFR (Non-Af Amer) ml/min BUN/Creatinine Ratio (10-20) Glucose (70-99) mg/dl POC Glucose 253 H (70-99) mg/dl Estimat Average Glucose mg/dl Hemoglobin A1c (4.5-5.6) % Lactate 1.6 (0.4-2.0) mmol/L Calcium (8.5-10.1) mg/dl Magnesium (1.8-2.4) mg/dl Total Bilirubin (0.2-1) mg/dl AST (15-37) U/L ALT (12-78) U/L Alkaline Phosphatase (45-117) U/L Troponin I (0-0.045) ng/ml Total Protein (6.4-8.2) gm/dl Albumin (3.4-5.0) gm/dl Globulin (2.5-4.0) gm/dl Albumin/Globulin Ratio (0.9-2) Procalcitonin (0-0.5) ng/ml Urine Color Urine Appearance (Clear) Urine pH (4.5-7.5) Ur Specific [place] (1.000-1.030) Urine Protein (Negative) Urine Glucose (UA) (Negative) Urine Ketones (Negative) Urine Blood (Negative) Urine Nitrite (Negative) Urine Bilirubin (Negative) Urine Urobilinogen (Negative) Ur Leukocyte Esterase (Negative) Urine WBC (Auto) (0-5) /hpf Urine RBC (Auto) (0-4) /hpf U Hyaline Cast (Auto) (0-5) /lpf U Epithel Cells (Auto) (0-5) /lpf Urine Bacteria (Auto) (Negative) SARS-CoV-2 (PCR) NEGATIVE (Negative) Influ A Molecular Assay (Negative) Influ B Molecular Assay (Negative) 08/23/20 08/23/20 08/23/20 Range/Units 17:38 17:38 17:38 WBC (4.8-10.8) K/uL RBC (4.2-5.4) M/uL Hgb (12.0-16.0) g/dL Hct (37-47) % MCV (80-100) fL MCH (25-34) pg MCHC (32-36) g/dL RDW Std Deviation (36.4-46.3) fL RDW Coeff of Oj (11.5-14.5) % Plt Count (130-400) K/uL MPV (7.4-10.4) fL Immature Gran % (Auto) % Neut % (Auto) % Lymph % (Auto) % [place] % (Auto) % Eos % (Auto) % Baso % (Auto) % Neut # (Auto) (1.4-6.5) K/uL Lymph # (Auto) (1.2-3.4) K/uL [place] # (Auto) (0.11-0.59) K/uL Eos # (Auto) (0-0.5) K/uL Baso # (Auto) (0-0.2) K/uL Immature Gran # (Auto) (0.00-0.02) K/uL PT 12.1 H (9.0-12.0) Seconds INR 1.2 H (0.9-1.1) APTT 26.4 (21.0-31.0) Seconds PTT Ratio 1.0 Sodium (136-145) mmol/L Potassium (3.5-5.1) mmol/L Chloride (98-107) mmol/L Carbon Dioxide (21-32) mmol/L Anion Gap (3-11) BUN (7-18) mg/dl Creatinine (0.6-1.2) mg/dl Est Cr Clr Drug Dosing ml/min Est GFR ( Amer) ml/min Est GFR (Non-Af Amer) ml/min BUN/Creatinine Ratio (10-20) Glucose (70-99) mg/dl POC Glucose (70-99) mg/dl Estimat Average Glucose mg/dl Hemoglobin A1c (4.5-5.6) % Lactate 2.1 H* (0.4-2.0) mmol/L Calcium (8.5-10.1) mg/dl Magnesium (1.8-2.4) mg/dl Total Bilirubin (0.2-1) mg/dl AST (15-37) U/L ALT (12-78) U/L Alkaline Phosphatase (45-117) U/L Troponin I (0-0.045) ng/ml Total Protein (6.4-8.2) gm/dl Albumin (3.4-5.0) gm/dl Globulin (2.5-4.0) gm/dl Albumin/Globulin Ratio (0.9-2) Procalcitonin (0-0.5) ng/ml Urine Color Urine Appearance (Clear) Urine pH (4.5-7.5) Ur Specific [place] (1.000-1.030) Urine Protein (Negative) Urine Glucose (UA) (Negative) Urine Ketones (Negative) Urine Blood (Negative) Urine Nitrite (Negative) Urine Bilirubin (Negative) Urine Urobilinogen (Negative) Ur Leukocyte Esterase (Negative) Urine WBC (Auto) (0-5) /hpf Urine RBC (Auto) (0-4) /hpf U Hyaline Cast (Auto) (0-5) /lpf U Epithel Cells (Auto) (0-5) /lpf Urine Bacteria (Auto) (Negative) SARS-CoV-2 (PCR) (Negative) Influ A Molecular Assay Negative (Negative) Influ B Molecular Assay Negative (Negative) 08/23/20 08/23/20 08/23/20 Range/Units 17:38 17:38 17:38 WBC 16.16 H (4.8-10.8) K/uL RBC 4.01 L (4.2-5.4) M/uL Hgb 11.4 L (12.0-16.0) g/dL Hct 36.8 L (37-47) % MCV 91.8 (80-100) fL MCH 28.4 (25-34) pg MCHC 31.0 L (32-36) g/dL RDW Std Deviation 54.9 H (36.4-46.3) fL RDW Coeff of Oj 16.5 H (11.5-14.5) % Plt Count 223 (130-400) K/uL MPV 10.1 (7.4-10.4) fL Immature Gran % (Auto) 0.3 % Neut % (Auto) 85.5 % Lymph % (Auto) 7.3 % [place] % (Auto) 6.0 % Eos % (Auto) 0.7 % Baso % (Auto) 0.2 % Neut # (Auto) 13.80 H (1.4-6.5) K/uL Lymph # (Auto) 1.18 L (1.2-3.4) K/uL [place] # (Auto) 0.97 H (0.11-0.59) K/uL Eos # (Auto) 0.12 (0-0.5) K/uL Baso # (Auto) 0.04 (0-0.2) K/uL Immature Gran # (Auto) 0.05 H (0.00-0.02) K/uL PT (9.0-12.0) Seconds INR (0.9-1.1) APTT (21.0-31.0) Seconds PTT Ratio Sodium 135 L (136-145) mmol/L Potassium 6.0 H (3.5-5.1) mmol/L Chloride 106 (98-107) mmol/L Carbon Dioxide 22 (21-32) mmol/L Anion Gap 6.0 (3-11) BUN 34 H (7-18) mg/dl Creatinine 1.67 H (0.6-1.2) mg/dl Est Cr Clr Drug Dosing 28.2 ml/min Est GFR ( Amer) 32.2 ml/min Est GFR (Non-Af Amer) 27.8 ml/min BUN/Creatinine Ratio 20.6 H (10-20) Glucose 208 H (70-99) mg/dl POC Glucose (70-99) mg/dl Estimat Average Glucose mg/dl Hemoglobin A1c (4.5-5.6) % Lactate (0.4-2.0) mmol/L Calcium 9.1 (8.5-10.1) mg/dl Magnesium 2.3 (1.8-2.4) mg/dl Total Bilirubin 0.9 (0.2-1) mg/dl AST 25 (15-37) U/L ALT 25 (12-78) U/L Alkaline Phosphatase 99 (45-117) U/L Troponin I 0.020 (0-0.045) ng/ml Total Protein 7.8 (6.4-8.2) gm/dl Albumin 4.0 (3.4-5.0) gm/dl Globulin 3.8 (2.5-4.0) gm/dl Albumin/Globulin Ratio 1.1 (0.9-2) Procalcitonin < 0.05 (0-0.5) ng/ml Urine Color Urine Appearance (Clear) Urine pH (4.5-7.5) Ur Specific [place] (1.000-1.030) Urine Protein (Negative) Urine Glucose (UA) (Negative) Urine Ketones (Negative) Urine Blood (Negative) Urine Nitrite (Negative) Urine Bilirubin (Negative) Urine Urobilinogen (Negative) Ur Leukocyte Esterase (Negative) Urine WBC (Auto) (0-5) /hpf Urine RBC (Auto) (0-4) /hpf U Hyaline Cast (Auto) (0-5) /lpf U Epithel Cells (Auto) (0-5) /lpf Urine Bacteria (Auto) (Negative) SARS-CoV-2 (PCR) (Negative) Influ A Molecular Assay (Negative) Influ B Molecular Assay (Negative) Resident Activity Tracking Resident Involvement: Resident Care Provided Care Provided: Adult Hospital Medicine
--- NOTE | 2020-08-24 16:27 | Billing Data ---
Date of Service August 24, 2020 Coding Level of Care Code 27267 Subseq Hosp Care Lvl 3
[2020-08-24] MEDS: AMOXICILLIN/CLAVULANATE 875 MG TAB PO SCH (17:21)
[2020-08-24] MEDS: ATORVASTATIN 40 MG TAB PO SCH (20:47)
[2020-08-24] MEDS: DOCUSATE SODIUM 100 MG CAP PO SCH (20:48)
[2020-08-24] MEDS: CLOPIDOGREL BISULFATE 75 MG TAB PO SCH (20:48)
[2020-08-24] MEDS: ACETAMINOPHEN 325 MG TAB PO PRN (20:50)
[2020-08-25] MEDS: FAMOTIDINE 20 MG in SYRINGE 3 ML IV SCH ×2 (00:03→11:29)
[2020-08-25] MEDS: LEVOTHYROXINE SODIUM 150 MCG TABLET PO SCH (05:43)
[2020-08-25] MEDS: HYDROcodone/HOMATROPINE SYRUP 5MG/1.5MG 5ML UDP PO PRN ×4 (06:14→20:44)
[2020-08-25 06:59] LABS: Basophils # (auto) 0.05 K/uL (0-0.2); Basophils % (auto) 0.4 %; Eosinophils # (auto) 0.24 K/uL (0-0.5); Eosinophils % (auto) 1.9 %; Hematocrit (blood only) 33.2 % (37-47); Hemoglobin 10.3 g/dL (12.0-16.0); Immature Granulocytes # (auto) 0.02 K/uL (0.00-0.02); Immature Granulocytes % (auto) 0.2 %; Lymphocytes # (auto) 1.58 K/uL (1.2-3.4); Lymphocytes % (auto) 12.6 %; Mean Corpuscular Hemoglobin 28.1 pg (25-34); Mean Corpuscular Volume 90.5 fL (80-100); Mean Platelet Volume 10.6 fL (7.4-10.4); Monocytes # (auto) 0.71 K/uL (0.11-0.59); Monocytes % (auto) 5.7 %; Neutrophils # (auto) 9.91 K/uL (1.4-6.5); Neutrophils % (auto) 79.2 %; Platelet Count 198 K/uL (130-400); RDW Coefficient of Variation 16.4 % (11.5-14.5); RDW Standard Deviation 54.4 fL (36.4-46.3); Red Blood Count 3.67 M/uL (4.2-5.4); White Blood Count 12.51 K/uL (4.8-10.8)
[2020-08-25 07:26] LABS: Albumin Level 3.4 gm/dl (3.4-5.0); BUN Creatinine Ratio 21.1 (10-20); Calcium 8.5 mg/dl (8.5-10.1); Creatinine Clr Calc Pharmacy 19.7 ml/min; Est GFR (African American) 20.5 ml/min; Est GFR (Non-African American) 17.7 ml/min; Magnesium 2.7 mg/dl (1.8-2.4); Potassium 5.3 mmol/L (3.5-5.1)
[2020-08-25] MEDS: METOPROLOL TARTRATE 25 MG TAB PO SCH ×2 (07:27→20:38)
[2020-08-25] MEDS: PANTOprazole 40 MG TAB PO SCH (07:27)
[2020-08-25] MEDS: MULTIVITAMIN TAB PO SCH (07:27)
[2020-08-25] MEDS: AMOXICILLIN/CLAVULANATE 875 MG TAB PO SCH (07:28)
[2020-08-25] MEDS: BUMETANIDE 1 MG TAB PO SCH (07:28)
[2020-08-25 07:29] LABS: Albumin Globulin Ratio 0.9 (0.9-2); Bilirubin,Total 0.7 mg/dl (0.2-1); Globulin 3.8 gm/dl (2.5-4.0); Phosphorus 3.4 mg/dl (2.5-4.9); Total Protein 7.2 gm/dl (6.4-8.2)
[2020-08-25] MEDS: PRAMIPEXOLE DIHYDROCHLO 0.25 MG TAB PO SCH (07:29)
[2020-08-25] MEDS: ISOSORBIDE MONO EXTENDED REL 60 MG TABCR PO SCH (07:29)
[2020-08-25] MEDS: CHOLECALCIFEROL 1,000 UNITS 25 MCG TAB PO SCH (07:29)
[2020-08-25] MEDS: SUCRALFATE 1 GM/10 ML UDC PO SCH ×2 (07:30→17:22)
[2020-08-25] MEDS: FLUTICASONE/VILANTEROL 200/25MCG 14 PUFFS/INHALER INH SCH (07:30)
[2020-08-25] MEDS: INSULIN GLARGINE SOLOSTAR 100 UNITS/ML 3 ML PEN SC SCH (07:31)
[2020-08-25] MEDS: BUDESONIDE 0.5 MG/2 ML VIAL (PULMICORT) NEB SCH ×2 (07:37→19:41)
[2020-08-25] MEDS: ALBUT/IPRATROP 3MG/0.5MG NEB 3 ML VIAL NEB SCH ×4 (07:37→19:41)
[2020-08-25] MEDS: INSULIN ASPART 100 UNITS/ML 3 ML PEN SC SCH ×4 (07:52→22:39)
[2020-08-25] MEDS: CALCIUM CARBONATE 1250MG TAB PO SCH ×2 (08:34→20:36)
[2020-08-25] MEDS ORDERED: VALSARTAN 80 MG TAB PO SCH (09:00)
[2020-08-25] MEDS ORDERED: INSULIN GLARGINE SOLOSTAR 100 UNITS/ML 3 ML PEN SC SCH (09:00)
[2020-08-25] MEDS ORDERED: GABAPENTIN 300 MG CAP PO ONE (14:58)
--- NOTE | 2020-08-25 15:22 | Medical Student Progress Note ---
Date of Service August 25, 2020 Assessment & Plan (1) Right lower lobe pneumonia: Pt presented after complication of hypoxia during an endoscopy that resulted in termination of the procedure. CXR showed RLL pneumonia. Pt was originally started on pip-tazo and transitioned to augmentin. While cough has worsened from yesterday, SOB is only noticeable with ambulation which is consistent with her baseline SOB. Currently pt is 91% O2 sat on room air. Pt will continue on Augmentin and monitored for worsening SOB and declining O2 sats. Pt will continue duonebs every 4 hours while awake and every 2 hours when necessary, breo ellipta 1 puff daily, and incentive spirometry and flutter valve. (2) Cough: Pt's ongoing cough has been worsening slightly since her admission to the hospital. Coughing fits are resulting in symptoms of headache, nausea, "gag ging", with one episode of post-tussive emesis that occurred prior to hospitalization. Pt has tried multiple cough suppressants with no resolution. Pt will be given gabapentin for cough suppressant and monitored for worsening coughing fits. Pt O2 sats on room air will be monitored. Pt will continue pantoprazole 40 mg daily, famotidien 20 mg IV every 12 horus, carafate 1 gpo twice daily with meals. (3) Dizziness: Pt mentions an event 2-3 weeks ago where she had syncope after standing up and walking to the kitchen. This resulted in the pt falling and hitting her head. Pt denies blacking out or any residual symptoms following the fall. Pt admits to drinking very little water. Pt is currently living alone and intermittently uses her "life-alert" device. Pt does not have a recent history of a CHF exacerbation, no evidence of CHF exacerbation or fluid overload on her current hospital stay, and an elevated creatinine in the context of giving the pt her usual diuretics, pt will have Bumetanide held. Spironolactone will continue to be held. Pt will be consoled on proper hydration and encouraged to consistently use her "life-alert" device since she is living alone. (4) Chronic kidney disease, stage 4 (severe): Pt presented with a creatinine of 1.67. After giving the pt her usual diuretics, pt's creatinine became elevated to 2.43. Pt had a potassium of 6.0 on admission which is 5.3 today. Per above, bumetanide will be held. Spironolactone will continue to be held. Pt will continue on valsartan and repeat labs will be ordered prior to discharge. (5) CAD (coronary artery disease): Pt will continue Xarelto, nebivolol, isosorbide mononitrate, clopidogrel. Bumetanide will be held. Spironolactone will continue to be held. Admission and Anticipated Discharge Date Admission Date: August 23, 2020 Supervising Attestation I personally examined the patient and verified all cunha points of history and exam, discussed case, and agree with decision making with Leonel Villegas MS2 MEJIA now more or less at baseline Vitals noted, in general she is awake and alert pleasant no distress. HEENT normocephalic atraumatic mucous membranes are moist. Right lower lung Rales otherwise clear. Probable aspiration pneumoniasuspect chronic laryngeal reflux leading to aspiration, I doubt this was really a procedural complication, but rather probably a sequelae of chronic aspiration, with her respiratory difficulty simply being unmasked with procedural sedation. augmentin. gabapentin to try to suppress cough. increase activity, hopefully home soon. MEJIA - worried about how much pulm HTN might be playing a role. Laryngeal pharyngeal refluxongoing outpatient management with GI. Strongly suspect this is the cause of her chronic cough Otherwise as above Subjective Pt is an 85 y/o female with a history of asthma, breast cancer post right mastectomy with reoccurrence in right 4th and 5th ribs), CAD, atrial flutter with RVR, PAD, carotid artery stenosis, chronic diastolic CHF, diabetes mellitus, chronic aspiration, pulmonary HTN, LPRD CKD stage IV, chronic anticoagulation, HTN, and hypothyroidism that presents with worsening shortness of breath. Had an endoscopy procedure today and became hypoxic and endoscopy was stopped. Pt has been coughing since the procedure. Pt has not had fever or chills, vomiting, diarrhea, no urinary complaints, and moderate abdominal discomfort across her chest and abdominal muscles from all her coughing. Pt went home but still had coughing. [place] very SOB. Called PCP told her to go to the ER. EKG: normal sinus rhythm 84 bpm. Possible old inferior infarct with no PVCs or ST elevation. Continuous cardiac monitorin with normal sinus rhythm CXR: cardiomegaly, persistent interstitial thickening, interval development of right lower lung zone airspace opacities suspicious for pneumonia Today, the pt states that the cough is worse from when she started in the hospital. Last night got a headache from coughing so much; has some nausea and gagging from coughing. Overall, pt only gets SOB with ambulation, not at rest. SOB is at baseline level prior to start of illness. Pt states that coughing fits prior to the hospital lead to emesis on Saturday which was muddy brown. Pt has not had post-tussive emesis since. Pt states that prior to the endoscopy she did not feel sick. Pt has been compliant with chemotherapy and last CAT adn bone scan in did not show change. Asthma has been stable. Pt did mention that she had fallen a couple weeks ago after getting up and walking to the kitchen which resulted in her hitting the top of her head. Pt states she had a bump on her head but did not lose consciousness during the episode. Pt did not tell anyone until a couple days later. Pt has history of feeling dizzy upon standing. These dizzy spells do not occur at rest. Review of Systems Constitutional: no fever, no chills and no weakness Eyes: Last couple days the keys on her phone look like they kind of blend together causing her to misspell words; no other visual issues Ear, Nose, Mouth, Throat: no halitosis Dysphagia: difficulty swallowing pills and dry food but relieved with subsequent water intake Respiratory: + cough and + dyspnea on exertion Cardiovascular: no chest pain Gastrointestinal: Gets sore in abdomen from coughing, nausea from coughing, no vomiting, no diarrhea but soft stools, urgency with defecation, sometimes slides out with cough, had some on Saturday. Last bowel movement, Saturday. 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 Coughing after deep inhalations. Cardiovascular: RRR with mild holosystolic murmur and loud S2 most evident at left 2nd intercostal space. No clicks, rubs or gallops. No carotid bruits. Palpable peripheral pulses. No peripheral edema Gastrointestinal (Abdomen): Mild RUQ discomfort on palpation. Nontender in other quadrants. Soft. Normal bowel sounds Skin: Inspection of area where breast cancer reoccurred in right 4th and 5th ribs area did not appear enlarged and did not have evidence of discoloration Neurologic: 1+ reflexes bilaterally. Decreased sensation in lower extremities bilaterally with difficulty discriminating between sharp and dull touch. Results & Data ([facility]) Vital Signs (Past 12 Hours) Vital Signs Temp Pulse Pulse Pulse Pulse Pulse Pulse 08/25/20 12:00 36.8 C 80 08/25/20 11:22 36.8 C 80 08/25/20 10:38 87 89 82 08/25/20 10:37 89 08/25/20 08:00 77 08/25/20 07:37 71 08/25/20 07:08 36.3 C L 71 08/25/20 03:30 36.3 C L 68 08/25/20 03:04 67 Resp Resp Resp Resp BP Pulse Ox Pulse Ox 08/25/20 12:00 18 145/65 H 91 08/25/20 11:22 18 145/65 H 91 08/25/20 10:38 20 18 18 90 08/25/20 10:37 20 93 08/25/20 08:00 08/25/20 07:37 18 98 08/25/20 07:08 22 123/64 96 08/25/20 03:30 22 128/65 96 08/25/20 03:04 20 92 Pulse Ox Pulse Ox 08/25/20 12:00 08/25/20 11:22 08/25/20 10:38 92 93 08/25/20 10:37 08/25/20 08:00 08/25/20 07:37 08/25/20 07:08 08/25/20 03:30 08/25/20 03:04
[2020-08-25] MEDS: AMOXICILLIN/CLAVULANATE 500 MG TAB PO SCH (17:23)
--- NOTE | 2020-08-25 20:16 | Billing Data ---
Date of Service August 25, 2020 Coding Level of Care Code 61049 Subseq Hosp Care Lvl 3
[2020-08-25] MEDS: ACETAMINOPHEN 325 MG TAB PO PRN (20:34)
[2020-08-25] MEDS: GABAPENTIN 300 MG CAP PO SCH (20:35)
[2020-08-25] MEDS: CLOPIDOGREL BISULFATE 75 MG TAB PO SCH (20:36)
[2020-08-25] MEDS: ATORVASTATIN 40 MG TAB PO SCH (20:36)
[2020-08-25] MEDS: RIVAROXABAN 15 MG TAB PO SCH (20:37)
[2020-08-25] MEDS: DOCUSATE SODIUM 100 MG CAP PO SCH (20:40)
[2020-08-25] MEDS ORDERED: HYDROcodone/HOMATROPINE SYRUP 5MG/1.5MG 5ML UDP PO PRN (20:56)
[2020-08-26 06:04] LABS: Basophils # (auto) 0.03 K/uL (0-0.2); Basophils % (auto) 0.4 %; Eosinophils # (auto) 0.38 K/uL (0-0.5); Eosinophils % (auto) 4.6 %; Hematocrit (blood only) 31.3 % (37-47); Hemoglobin 9.6 g/dL (12.0-16.0); Immature Granulocytes # (auto) 0.01 K/uL (0.00-0.02); Immature Granulocytes % (auto) 0.1 %; Lymphocytes # (auto) 1.51 K/uL (1.2-3.4); Lymphocytes % (auto) 18.3 %; Mean Corpuscular Hemoglobin 27.8 pg (25-34); Mean Corpuscular Hgb Conc 30.7 g/dL (32-36); Mean Corpuscular Volume 90.7 fL (80-100); Mean Platelet Volume 10.1 fL (7.4-10.4); Monocytes # (auto) 0.53 K/uL (0.11-0.59); Monocytes % (auto) 6.4 %; Neutrophils % (auto) 70.2 %; Platelet Count 159 K/uL (130-400); RDW Coefficient of Variation 16.3 % (11.5-14.5); Red Blood Count 3.45 M/uL (4.2-5.4); White Blood Count 8.26 K/uL (4.8-10.8)
[2020-08-26] MEDS: LEVOTHYROXINE SODIUM 150 MCG TABLET PO SCH (06:17)
[2020-08-26 06:40] LABS: BUN Creatinine Ratio 21.3 (10-20); Calcium 8.2 mg/dl (8.5-10.1); Creatinine Clr Calc Pharmacy 18.3 ml/min; Est GFR (African American) 18.8 ml/min; Est GFR (Non-African American) 16.2 ml/min; Potassium 5.4 mmol/L (3.5-5.1)
[2020-08-26 06:43] LABS: Albumin Globulin Ratio 0.9 (0.9-2); Bilirubin,Total 0.5 mg/dl (0.2-1); Globulin 3.4 gm/dl (2.5-4.0); Total Protein 6.4 gm/dl (6.4-8.2)
[2020-08-26] MEDS: BUDESONIDE 0.5 MG/2 ML VIAL (PULMICORT) NEB SCH ×2 (07:19→19:37)
[2020-08-26] MEDS: ALBUT/IPRATROP 3MG/0.5MG NEB 3 ML VIAL NEB SCH ×4 (07:19→19:37)
[2020-08-26] MEDS ORDERED: PHARMACY GLYCEMIC MGMT CONSULT PRN (07:29)
[2020-08-26] MEDS ORDERED: INSULIN GLARGINE SOLOSTAR 100 UNITS/ML 3 ML PEN SC ONE ×2 (08:00)
[2020-08-26] MEDS: INSULIN ASPART 100 UNITS/ML 3 ML PEN SC SCH ×4 (08:30→21:15)
[2020-08-26] MEDS: PRAMIPEXOLE DIHYDROCHLO 0.25 MG TAB PO SCH (08:31)
[2020-08-26] MEDS: PANTOprazole 40 MG TAB PO SCH (08:32)
[2020-08-26] MEDS: ISOSORBIDE MONO EXTENDED REL 60 MG TABCR PO SCH (08:32)
[2020-08-26] MEDS: CALCIUM CARBONATE 1250MG TAB PO SCH ×2 (08:32→20:40)
[2020-08-26] MEDS: CHOLECALCIFEROL 1,000 UNITS 25 MCG TAB PO SCH (08:32)
[2020-08-26] MEDS: METOPROLOL TARTRATE 25 MG TAB PO SCH ×2 (08:32→20:40)
[2020-08-26] MEDS: SUCRALFATE 1 GM/10 ML UDC PO SCH ×2 (08:33→17:20)
[2020-08-26] MEDS: FLUTICASONE/VILANTEROL 200/25MCG 14 PUFFS/INHALER INH SCH (08:34)
[2020-08-26] MEDS: MULTIVITAMIN TAB PO SCH (08:34)
[2020-08-26] MEDS: AMOXICILLIN/CLAVULANATE 500 MG TAB PO SCH ×2 (08:34→17:20)
--- NOTE | 2020-08-26 11:14 | Pharmacy Report ---
Pharmacy Glycemic Short Note 2 - Date of Service August 26, 2020 - Glycemic Short BSG Results (Last 24 hours): 08/25/20 08/25/20 08/25/20 11:45 16:44 20:11 Glucose POC Glucose 228 H 204 H 266 H 08/25/20 08/25/20 08/26/20 22:35 22:37 05:50 Glucose 256 H POC Glucose 314 H* 294 H 08/26/20 07:37 Glucose POC Glucose 254 H OUTPATIENT ANTIDIABETIC REGIMEN: * V-Go NovoLog Pump * Basal: 1.25 units/hr (total 30 units) * Bolus: ~3 clicks (6 units) breakfast, ~2 clicks (4 units) lunch, 4 (8 units) dinner (*adjusts dose based on food intake/BG) ASSESSMENT: * 85yo T2DM female with adequate outpatient control per recent A1c based on age/co-morbidities. * Pt with sustained hyperglycemia secondary in basal insulin deficiency dosing. Outpatient dosing is 30 units daily but pt only receiving 16 units daily in house. Pt did receive 32 units of Lantus on 08/24 (16 units @ 0117 when admitted and then 16 units again at 0833). Pt only received 16 units of basal on 08/25. Likely outpatient dosing needs stressed for infection. * Will stress basal today - make up the ~15 units that were missed yesterday and then resume outpatient dosing of basal insulin 30 units SQ daily tomorrow. * Further tighten CF/CR and lower goal range from 140-180 to 110-140 mg/dl. * Goal is to maintain BSGs <180 mg/dl to promote healing PLAN FOR INPATIENT GLYCEMIC CONTROL: * Basal insulin * Lantus 45 units SQ x 1 dose this AM then resume outpatient dosing of 30 units SQ daily tomorrow. Will continue to stress dosing if needed. * Bolus insulin * NovoLog per scale ACHS or Q6hrs while NPO * Goal Range: Low 110 mg/dL - High 140 mg/dL * Correction Factor: 20 mg/dL/unit * Nutritional / Prandial insulin per carb ratio of 1 unit per 5 grams CHO consumed PLAN FOR DISCHARGE: * A1c is in goal range for age/co-morbidities. No changes needed to outpatient regimen.
[2020-08-26] MEDS: FAMOTIDINE 20 MG TAB PO SCH (11:18)
--- NOTE | 2020-08-26 13:40 | Medical Student Progress Note ---
Date of Service August 26, 2020 Assessment & Plan (1) Right lower lobe pneumonia: Pt presented after complication of hypoxia during an endoscopy that resulted in termination of the procedure. CXR showed RLL pneumonia. Pt was originally started on pip-tazo and transitioned to augmentin. Cough is about the same as yesterday. SOB is only noticeable with ambulation which is consistent with her baseline SOB. Currently pt is 90% O2 sat on room air. Pt will continue on Augmentin and monitored for worsening SOB and declining O2 sats. Pt will continue duonebs every 4 hours while awake and every 2 hours when necessary, breo ellipta 1 puff daily, and incentive spirometry and flutter valve. (2) Cough: Pt's cough is about the same as yesterday. Pt was given gabapentin for cough suppressant. Hydrocodone PRN will be held due to double vision and dizziness and due to failing to provide a relief of pt's ongoing cough. Pt will monitored for worsening coughing fits. Pt O2 sats on room air will be monitored. Pt will continue pantoprazole 40 mg daily, famotidien 20 mg IV every 12 horus, carafate 1 gpo twice daily with meals. (3) Dizziness: Pt admits to not drinking any more fluids than yesterday despite cou nseling. Pt will receive a 500cc bolus of fluids due to rising creatinine despite holding bumetanide held and spironolactone. Bumetanide and spironolactone will continue to be held. Pt will be consoled again on proper hydration. (4) Diplopia: Pt mentioned worsening visual symptoms today. Prior to today pt admitted to having difficulty texting where the letters were blending together. In addition to that concern, pt developed double vision last night that has persisted throughout the morning. Double vision is present at rest. Pt denied any visual hallucinations or any other neurological complaints. Additionally, no other neurological deficits were present on physical exam other than the nystagmus in the left eye on left lateral gaze. Pt did have a history of a fall 2-3 weeks ago that resulted in her hitting her head. Pt did not seek treatment for that fall but did not notice any lingering issues from that fall other than a bump on her head. Since presentation, pt's blood sugars have been in the mid 200s to low 300s with the most recent being 256. Pt's recent diplopia are most likely due to her low fluid intake or her high glucose levels. Pt will receive 500cc bolus of fluids, encouraged to increase her oral fluid intake, and her insulin levels will be adjusted to lower her blood sugars back into normal range. Glucose levels and volume status will be monitored. While the pt did have a fall that resulted in head trauma, pt has shown no other neurological deficits on physical exam and has no other neurological symptoms other than the dizziness. The likelihood of a chronic, slow developing brain bleed is lower. If neurological symptoms worsen, new neurological symptoms develop, or symptoms fail to improve with adequate blood sugar control and fluid resuscitation, brain imaging will be considered. Hydrocodone PRN will be held per above and artificial tears will be given as needed. (5) Chronic kidney disease, stage 4 (severe): Creatinine increased from 1.67 on presentation to 2.61 today (2.43 yesterday). Potassium was 6.0 on admission which is elevated to 5.4 today (5.5 yesterday). Per above, bumetanide and spironolactone will continue to be held and 500cc bolus of fluid will be administered. Pt will continue on valsartan and repeat labs will be ordered prior to discharge. (6) CAD (coronary artery disease): Pt will continue Xarelto, nebivolol, isosorbide mononitrate, clopidogrel. Bumetanide and spironolactone will continue to be held. Admission and Anticipated Discharge Date Admission Date: August 23, 2020 Supervising Attestation I personally examined the patient and verified all cunha points of history and exam, discussed case, and agree with decision making with Leonel Villegas MS2 double vision - side by side. only with both eyes. otherwise feels OK. Updated son to himanswered all questions to the best my ability. Vitals noted, in general she is awake and alert pleasant no distress. HEENT normocephalic atraumatic mucous membranes are moist. She has binocular double vision with a [id number] appearance. EOMI. Very faint lateral beat nystagmus left eye only with lateral gaze. Probable aspiration pneumoniasuspect chronic laryngeal reflux leading to aspiration, I doubt this was really a procedural complication, but rather probably a sequelae of chronic aspiration, with her respiratory difficulty simply being unmasked with procedural sedation. augmentin. gabapentin to try to suppress cough. Is appearing stable. MEJIA - worried about how much pulm HTN might be playing a role. Is seeing pulmonary for this as well. Laryngeal pharyngeal refluxwill need ongoing outpatient management with GI. Strongly suspect this is the cause of her chronic cough Diplopiabinocular, with EOMI, and fluid shifting/hyperglycemiasuspect this is multifactorial. Continue to follow closely. AKIsuspect this was from her home dosing of diuretics, severe pulmonary hypertension, likely making her very preload dependent. Diuretics been held, would not like to give IV fluids unless absolutely necessary, encouraging p.o. intake. Continue to follow basic metabolic panel. Son notes that she lives alone and does not have a whole lot of support. Given that when we were discussing I noted that she seemed borderline between being able to go home versus needing some rehab, he noted with her social situation that this would be more conducive to working towards rehabwith that in mind, PT/OT eval and treat. He also requested repeat CT chest just to be sure that the right lower lung findings are not metastatic recurrence of her breast cancer, since this seemed quite reasonable we will proceed. Otherwise as above Subjective Saturday was scheduled for scope for acid reflux. Went in prepped, went to sleep, woke up finding out she became hypoxic from the procedure. Will need to reschedule in operating room in the future. When she woke up she was constantly coughing, non-productive. Oxygen level dropped, BP went up, then oxygen went up and BP dropped; varied as she was in the OR. Went home but still had coughing. [place] very SOB. Called PCP told her to go to the ER. Brought in by her friend. Cough is worse from when she started in the hospital. Last night got a headache from coughing so much; has some nausea and gagging from coughing. Has some post-tussive emesis, Saturday-brown liquid. Sometimes it takes a lot of water to get pills down throat as it feels like things are stuck in her throat. Sometimes happens with dry food. Doesnt feel like she regurgitates her food or feels heartburn. Burps a lot. Denies halitosis. Did not feel sick prior to endoscopy, did feel some SOB prior. [place] fine prior to procedure. No fever no night sweats. No history of smoking or smokeless tobacco. No alcohol or history of it. No history of past drug use. Denies household contacts that smoke. No history of cancer or GI issues in the family. Takes oral chemotherapy and injection of Exgeva once a month for cancer in left and right rib. Compliant with chemo. Has CAT scan and bone scan every 4 months (last one May or May) didnt change from previous one. Next one in october. Asthma is stable: fiberglass was a trigger. Prior to leaving pt mentioned that she had fallen a couple weeks ago after getting up and walking to the kitchen which resulted in her hitting the top of her head. Pt states she had a bump on her head but did not lose consciousness during the episode. Pt did not tell anyone until a couple days later. Pt has history of feeling dizzy upon standing. These dizzy spells do not occur at rest. Today, pt states that her cough has maybe improved a little from yesterday. Pt only notices shortness of breath with ambulation. Pt states that despite encouragement from yesterday, she is not drinking more fluid. Pt states that she has had worsening of the visual changes that she had mentioned yesterday. Instead of just the texting issues where the letters start to blend together when texting, the pt started having double vision last night as she was lying in bed. Double vision persisted when she woke up this morning and has been present since. She said it doesn't feel like the room was spinning but overall she feels funny. Pt does not have any hallucinations. Review of Systems Constitutional: no fever and no chills Eyes: Diplopia: see HPI Respiratory: SOB with ambulation Cardiovascular: no chest pain Gastrointestinal: no abdominal pain, no nausea, no vomiting, no constipation and no diarrhea/loose stools Last bowel movement Saturday; not passing gas Genitourinary: no dysuria Told she had dark urine by the nurse. Neurologic: No new numbness or tingling from baseline. Psychiatric: Mentally doing well, not overly down or anxious. Physical Exam Respiratory: Lungs are clear on auscultation bilaterally but deep inspiration precipitates coughing fits. Cardiovascular: RRR, loud S2 with holosystolic murmur loudest in left upper 2nd intercostal space. No carotid bruits. Palpable pulses in distal extremities. No pedal edema. Gastrointestinal (Abdomen): Abdomen: mild RUQ and epigastric pain on palpation consistent from yesterday. No pain on palpation in the rest of the abdomen. Normal bowel sounds. Neurologic: Neuro: 1+ reflexes bilaterally, equal sensation to light tough on extremities bilaterally, no pronator drift, normal rapid alternating movements, normal heel to chiu test. I: no change in smell per pt II: normal light reflexes III/IV/: EOM intact, left lateral nystagmus with left eye only; diplopia present with binocular vision but absent with monocular vision V: normal, equal sensation on all three branches VII: normal facial muscle movement with eyebrow raising, smiling, puffing out cheeks VIII: moderate difficulty hearing in right ear compared to left ear IX/X: symmetric palate movement IX: normal movement and strength with movement with and without resistance XII: symmetric tongue movement Psychiatric: Orientation: alert and oriented x 3 Results & Data ([facility]) Vital Signs (Past 12 Hours) Vital Signs Temp Pulse Pulse Resp BP Pulse Ox 08/26/20 11:26 36.4 C L 66 20 142/66 H 90 08/26/20 11:12 69 18 90 08/26/20 07:41 36.6 C 68 20 145/73 H 91 08/26/20 07:27 65 08/26/20 07:20 69 18 90 08/26/20 04:11 36.6 C 67 18 115/49 L 90 08/26/20 03:34 60 20 90
[2020-08-26] MEDS ORDERED: ARTIFICIAL TEARS OP PRN (14:12)
[2020-08-26] MEDS: SODIUM CHLORIDE 0.9% 500 ML IV SCH ×7 (14:58→23:43)
--- NOTE | 2020-08-26 19:17 | Billing Data ---
Date of Service August 26, 2020 Coding Level of Care Code 31981 Subseq Hosp Care Lvl 3
[2020-08-26] MEDS: DOCUSATE SODIUM 100 MG CAP PO SCH (20:37)
[2020-08-26] MEDS: GABAPENTIN 300 MG CAP PO SCH (20:40)
[2020-08-26] MEDS: RIVAROXABAN 15 MG TAB PO SCH (20:40)
[2020-08-26] MEDS: CLOPIDOGREL BISULFATE 75 MG TAB PO SCH (20:40)
[2020-08-26] MEDS: ATORVASTATIN 40 MG TAB PO SCH (20:40)
[2020-08-26] MEDS: DEXTROMETHORPHAN POLYMR COMPLX 30 MG/5 ML UDP PO PRN (20:43)
[2020-08-26] MEDS: FLUTICASONE PROPIONATE NA SPR 16 GM BTL NAE PRN (21:59)
[2020-08-27] MEDS: INSULIN ASPART 100 UNITS/ML 3 ML PEN SC SCH ×6 (00:06→21:38)
[2020-08-27] MEDS: LEVOTHYROXINE SODIUM 150 MCG TABLET PO SCH (05:15)
[2020-08-27] MEDS: BUDESONIDE 0.5 MG/2 ML VIAL (PULMICORT) NEB SCH ×2 (07:00→20:15)
[2020-08-27] MEDS: ALBUT/IPRATROP 3MG/0.5MG NEB 3 ML VIAL NEB SCH ×4 (07:00→20:15)
[2020-08-27 07:22] LABS: Basophils # (auto) 0.02 K/uL (0-0.2); Basophils % (auto) 0.2 %; Eosinophils # (auto) 0.52 K/uL (0-0.5); Eosinophils % (auto) 5.1 %; Hematocrit (blood only) 31.8 % (37-47); Hemoglobin 10.2 g/dL (12.0-16.0); Immature Granulocytes # (auto) 0.02 K/uL (0.00-0.02); Immature Granulocytes % (auto) 0.2 %; Lymphocytes % (auto) 16.7 %; Mean Corpuscular Hemoglobin 28.1 pg (25-34); Mean Corpuscular Hgb Conc 32.1 g/dL (32-36); Mean Corpuscular Volume 87.6 fL (80-100); Mean Platelet Volume 10.4 fL (7.4-10.4); Monocytes # (auto) 0.58 K/uL (0.11-0.59); Monocytes % (auto) 5.7 %; Neutrophils # (auto) 7.31 K/uL (1.4-6.5); Neutrophils % (auto) 72.1 %; Platelet Count 181 K/uL (130-400); RDW Standard Deviation 52.1 fL (36.4-46.3); Red Blood Count 3.63 M/uL (4.2-5.4); White Blood Count 10.15 K/uL (4.8-10.8)
[2020-08-27 07:51] LABS: BUN Creatinine Ratio 28.9 (10-20); Calcium 9.2 mg/dl (8.5-10.1); Creatinine Clr Calc Pharmacy 22.5 ml/min; Est GFR (African American) 24.2 ml/min; Est GFR (Non-African American) 20.8 ml/min
[2020-08-27] MEDS: AMOXICILLIN/CLAVULANATE 500 MG TAB PO SCH ×2 (08:16→17:17)
[2020-08-27] MEDS: CALCIUM CARBONATE 1250MG TAB PO SCH ×2 (08:16→21:05)
[2020-08-27] MEDS: PRAMIPEXOLE DIHYDROCHLO 0.25 MG TAB PO SCH (08:16)
[2020-08-27] MEDS: FLUTICASONE/VILANTEROL 200/25MCG 14 PUFFS/INHALER INH SCH (08:17)
[2020-08-27] MEDS: CHOLECALCIFEROL 1,000 UNITS 25 MCG TAB PO SCH (08:17)
[2020-08-27] MEDS: ISOSORBIDE MONO EXTENDED REL 60 MG TABCR PO SCH (08:17)
[2020-08-27] MEDS: MULTIVITAMIN TAB PO SCH (08:17)
[2020-08-27] MEDS: FAMOTIDINE 20 MG TAB PO SCH (08:17)
[2020-08-27] MEDS: DEXTROMETHORPHAN POLYMR COMPLX 30 MG/5 ML UDP PO PRN ×2 (08:18→21:21)
[2020-08-27] MEDS: PANTOprazole 40 MG TAB PO SCH (08:18)
[2020-08-27] MEDS: SUCRALFATE 1 GM/10 ML UDC PO SCH ×2 (08:18→17:17)
[2020-08-27] MEDS: METOPROLOL TARTRATE 25 MG TAB PO SCH ×2 (08:18→21:06)
[2020-08-27] MEDS: INSULIN GLARGINE SOLOSTAR 100 UNITS/ML 3 ML PEN SC SCH (08:21)
--- NOTE | 2020-08-27 09:23 | Pharmacy Report ---
Pharmacy Glycemic Short Note 2 - Date of Service August 27, 2020 - Glycemic Short BSG Results (Last 24 hours): 08/26/20 08/26/20 08/26/20 11:35 11:36 11:40 Glucose POC Glucose 308 H* 273 H 277 H 08/26/20 08/26/20 08/27/20 16:38 20:22 00:03 Glucose POC Glucose 164 H 123 H 114 H 08/27/20 08/27/20 08/27/20 05:08 07:01 07:46 Glucose 181 H POC Glucose 179 H 187 H OUTPATIENT ANTIDIABETIC REGIMEN: * V-Go NovoLog Pump * Basal: 1.25 units/hr (total 30 units) * Bolus: ~3 clicks (6 units) breakfast, ~2 clicks (4 units) lunch, 4 (8 units) dinner (*adjusts dose based on food intake/BG) * HbA1c: 8.3% (08/24/20) ASSESSMENT: 08/27: * BSGs improved throughout the day yesterday, 254, 277, 164, and 123 mg/dL * Received 91 units of insulin yesterday - 45 units of basal, 46 units of prandial/correctional bolus * Patient received increased dose of basal insulin yesterday to make up for reduced dose on 08/25 * Will continue patient's home basal dose today - 30 units 08/26: * 85yo T2DM female with adequate outpatient control per recent A1c based on age/co-morbidities. * Pt with sustained hyperglycemia secondary in basal insulin deficiency dosing. Outpatient dosing is 30 units daily but pt only receiving 16 units daily in house. Pt did receive 32 units of Lantus on 08/24 (16 units @ 0117 when admitted and then 16 units again at 0833). Pt only received 16 units of basal on 08/25. Likely outpatient dosing needs stressed for infection. * Will stress basal today - make up the ~15 units that were missed yesterday and then resume outpatient dosing of basal insulin 30 units SQ daily tomorrow. * Further tighten CF/CR and lower goal range from 140-180 to 110-140 mg/dl. * Goal is to maintain BSGs <180 mg/dl to promote healing PLAN FOR INPATIENT GLYCEMIC CONTROL: * Basal insulin * Lantus 30 units SC daily * Bolus insulin * NovoLog per scale ACHS or Q6hrs while NPO * Goal Range: Low 110 mg/dL - High 140 mg/dL * Correction Factor: 15 mg/dL/unit * Nutritional / Prandial insulin per carb ratio of 1 unit per 4 grams CHO consumed PLAN FOR DISCHARGE: * A1c is in goal range for age/co-morbidities. No changes needed to outpatient regimen.
--- NOTE | 2020-08-27 10:22 | CT Scan Report ---
CT OF THE CHEST WITHOUT IV CONTRAST CLINICAL HISTORY: Shortness of breath, concern for metastatic process. History of breast cancer. COMPARISON STUDY: Chest CT July 18, 2020. Chest radiograph August 23, 2020. CT DOSE: 807.61 mGy.cm TECHNIQUE: Axial images of the chest were obtained without IV contrast. Images were reviewed in the axial, sagittal, and coronal planes. IV contrast was not administered for this examination. Automat ed exposure control was utilized for the study. A dose lowering technique was utilized adhering to t he principles of ALARA. FINDINGS: No enlarged thoracic lymph node are present. There is extensive coronary artery calcificat ion. Mild cardiomegaly is noted. There is no significant pericardial effusion. There is trace pericar dial fluid. There is no pneumothorax or pleural effusion. Interlobular septal thickening is noted wit hin the lungs. There are mild groundglass opacities. Small nodular opacities within the right lower l obe are noted. There are calcified nodules within the lungs which are benign. Central airways are pat ent. Appearance of a right third rib lesion is unchanged. This favors a treated metastasis. Appearanc e of the left mastectomy is unchanged with suspected seroma. Upper abdomen is unremarkable on this un enhanced exam. There is anasarca. Old T12 compression fracture is unchanged. IMPRESSION: 1. Interstitial thickening consistent with interstitial pulmonary edema. Additional groundglass opaci ties also likely reflect pulmonary edema. 2. Right lower lobe nodular opacities which have decreased since chest radiograph of August 23, 2020. Th is may reflect a resolving infectious process. 3. No change in appearance of the right third rib lesion which favors a treated metastasis. 4. Mild cardiomegaly. Extensive coronary artery calcification. ACT 112: Negative or not required by law. Electronically signed by: Nash Ambriz M.D. 08/27/2020 10:21 AM
--- NOTE | 2020-08-27 10:23 | Hospitalist Progress Note ---
Date of Service August 27, 2020 Assessment & Plan (1) Right lower lobe pneumonia: RLL pneumonia, Hypoxemic Respiratory Failure Pt presented after complication of hypoxia during an endoscopy that resulted in termination of the procedure. CXR showed RLL pneumonia. Hypoxia resolved Pt was originally started on pip-tazo and transitioned to augmentin Likely representing aspiration continue duonebs every 4 hours while awake and every 2 hours when necessary, breo ellipta 1 puff daily, and incentive spirometry and flutter valve. STruggling with shortness of breath on exertion and dizzynes FLORENCIA on CKD Creatinine increased from 1.67 on presentation to 2.61 yesterday Potassium was 6.0 on admission Improved to 2.12 with increased fluid intake, potassium in normal range Continue to encourage PO intake and will recheck BMP in am bumetanide and spironolactone held continue valsartan Weakness Patient with fatigue on ambulation shortness of breath and dizzyness, per son lives at home alone and there is great concern about her returning home by herself. WIll have PT and OT assess patient and she may benefit from SNF placement Diplopia Patient developed diplopia yesterday tells me it was present when she first woke up this am but by now has resolved. Still feeling unsteady on her feet but seeing okay Pt's recent diplopia sounded to be binocular and horizontal, most likely due to dehydration or fatigue. While the pt did have a fall that resulted in head trauma, pt has shown no other neurological deficits on physical exam and has no other neurological symptoms other than the dizziness. The likelihood of a chronic, slow developing brain bleed is lower.Also on differential is mass effect from history of breast cancer, If neurological symptoms worsen, new neurological symptoms develop, or symptoms fail to continue to improve with adequate fluid resuscitation, brain MRI will be ordered. Hydrocodone PRN will be held per above and artificial tears will be given as needed. CAD/atrial flutter/Pulmonary hypertension Patient does have some degree of LVH and diastolic dysfunction but appears to have significant pulmonary hypertension, likely overdiuresing patient and will hold off on further diuresis until kidney function nears baseline. Do not believe that fluid overload contributed significantly to hypoxemic repsiratory failure on presentation Pt will continue Xarelto, nebivolol, isosorbide mononitrate, clopidogrel valsartan. Bumetanide and spironolactone will continue to be held. DVT PPx: Xarelto F/E/N: Heart healthy diet encouraging PO fluid intake Dispo: Patient currently unsteady on her feet son concerned about her returning home alone, may benefit from SNF placement FULL CODE (2) Cough: (3) Dizziness: (4) Diplopia: (5) Chronic kidney disease, stage 4 (severe): (6) CAD (coronary artery disease): Admission and Anticipated Discharge Date Admission Date: August 23, 2020 Supervising Physician Co-Signing Physician Notes I personally examined the patient and verified all cunha points of history and exam, discussed case, and agree with decision making with Dr Stallworth. diplopia improving some. otherwise feeling about the same. PT about to work with her when i enter Vitals noted, in general she is awake and alert pleasant no distress. HEENT normocephalic atraumatic mucous membranes are moist. breathing unlabored no accessory muscles good effort Probable aspiration pneumoniasuspect chronic laryngeal reflux leading to aspiration, I doubt this was really a procedural complication, but rather probably a sequelae of chronic aspiration, with her respiratory difficulty simply being unmasked with procedural sedation. Continue antibiotics and pulmonary toilet. CT reassuring that this was not cancer related. Laryngeal pharyngeal refluxongoing outpatient management with GI. Strongly suspect this is the cause of her chronic cough diplopia - nonspecific - likely fluid/sugar/fatigue related - slowly improving weakness - PT/OT eval and treat Otherwise as above Subjective Emily Narvaez is doing a little better today, though she says she has been much more unsteady on her feet and still feeling short of breath with any exertion, had double vision when she first woke up but this has improved. Review of Systems Review of Systems: All systems reviewed & are unremarkable except as noted in HPI & below Physical Exam Physical Exam: Constitutional: Well appearing 85 year old woman no acute distress coughing Eyes: Pupils equal round and reactive to light, ENMT: NAD Respiratory: Regular rate, coughing violently with any deep inspiration, crackles appreciated bilaterally R>L Cardiovascular: Regular rate regular rhythm no murmurs rubs or gallops. GI: Abdomen soft non tender MSK: NAD Neuro: No focal deficits, cranial nerve exam normal. Results & Data Results & Data ([facility]) Vital Signs (Past 12 Hours) Vital Signs Temp Pulse Pulse Pulse Resp BP Pulse Ox 08/27/20 09:19 84 08/27/20 07:56 36.6 C 71 18 164/78 H 91 08/27/20 07:01 67 18 94 08/27/20 03:21 66 12 93 08/27/20 03:11 37.0 C 59 L 20 124/58 L 91 08/27/20 00:05 63 08/26/20 23:14 36.7 C 80 20 111/63 91 Resident Activity Tracking Resident Involvement: Resident Care Provided Care Provided: Adult Hospital Medicine
[2020-08-27] MEDS: HEPARIN 100 UNIT/ML 5ML FLUSH FLUSH PRN (11:19)
--- NOTE | 2020-08-27 17:58 | Billing Data ---
Date of Service August 27, 2020 Coding Level of Care Code 52195 Subseq Hosp Care Lvl 2
[2020-08-27] MEDS: CARBOHYDRATES FOR HYPOGLYCEMIA PO PRN (20:56)
[2020-08-27] MEDS: ATORVASTATIN 40 MG TAB PO SCH (21:05)
[2020-08-27] MEDS: RIVAROXABAN 15 MG TAB PO SCH (21:06)
[2020-08-27] MEDS: CLOPIDOGREL BISULFATE 75 MG TAB PO SCH (21:06)
[2020-08-27] MEDS: DOCUSATE SODIUM 100 MG CAP PO SCH (21:07)
[2020-08-27] MEDS: GABAPENTIN 300 MG CAP PO SCH (21:07)
[2020-08-27] MEDS: FLUTICASONE PROPIONATE NA SPR 16 GM BTL NAE PRN (21:21)
[2020-08-28] MEDS: INSULIN ASPART 100 UNITS/ML 3 ML PEN SC SCH ×6 (00:08→21:00)
[2020-08-28] MEDS ORDERED: INSULIN ASPART 100 UNITS/ML 3 ML PEN SC ONE (04:00)
[2020-08-28] MEDS: DEXTROMETHORPHAN POLYMR COMPLX 30 MG/5 ML UDP PO PRN ×2 (04:08→20:18)
[2020-08-28] MEDS: LEVOTHYROXINE SODIUM 150 MCG TABLET PO SCH (05:51)
[2020-08-28] MEDS: ALBUT/IPRATROP 3MG/0.5MG NEB 3 ML VIAL NEB SCH ×4 (07:05→19:21)
[2020-08-28] MEDS: BUDESONIDE 0.5 MG/2 ML VIAL (PULMICORT) NEB SCH ×2 (07:05→19:21)
[2020-08-28 07:43] LABS: Basophils # (auto) 0.03 K/uL (0-0.2); Basophils % (auto) 0.3 %; Eosinophils # (auto) 0.53 K/uL (0-0.5); Eosinophils % (auto) 4.4 %; Hematocrit (blood only) 32.1 % (37-47); Hemoglobin 10.3 g/dL (12.0-16.0); Immature Granulocytes # (auto) 0.01 K/uL (0.00-0.02); Immature Granulocytes % (auto) 0.1 %; Lymphocytes # (auto) 1.96 K/uL (1.2-3.4); Lymphocytes % (auto) 16.4 %; Mean Corpuscular Hemoglobin 28.1 pg (25-34); Mean Corpuscular Hgb Conc 32.1 g/dL (32-36); Mean Corpuscular Volume 87.5 fL (80-100); Mean Platelet Volume 10.6 fL (7.4-10.4); Monocytes # (auto) 0.75 K/uL (0.11-0.59); Monocytes % (auto) 6.3 %; Neutrophils # (auto) 8.67 K/uL (1.4-6.5); Neutrophils % (auto) 72.5 %; Platelet Count 205 K/uL (130-400); RDW Coefficient of Variation 16.1 % (11.5-14.5); RDW Standard Deviation 51.5 fL (36.4-46.3); Red Blood Count 3.67 M/uL (4.2-5.4); White Blood Count 11.95 K/uL (4.8-10.8)
[2020-08-28 08:03] LABS: BUN Creatinine Ratio 32.7 (10-20); Calcium 9.9 mg/dl (8.5-10.1); Est GFR (African American) 32.7 ml/min; Est GFR (Non-African American) 28.2 ml/min; Potassium 5.5 mmol/L (3.5-5.1)
[2020-08-28] MEDS: CALCIUM CARBONATE 1250MG TAB PO SCH ×2 (08:12→20:15)
[2020-08-28] MEDS: METOPROLOL TARTRATE 25 MG TAB PO SCH ×2 (08:13→20:15)
[2020-08-28] MEDS: PANTOprazole 40 MG TAB PO SCH (08:13)
[2020-08-28] MEDS: PRAMIPEXOLE DIHYDROCHLO 0.25 MG TAB PO SCH (08:13)
[2020-08-28] MEDS: MULTIVITAMIN TAB PO SCH (08:13)
[2020-08-28] MEDS: ISOSORBIDE MONO EXTENDED REL 60 MG TABCR PO SCH (08:13)
[2020-08-28] MEDS: FAMOTIDINE 20 MG TAB PO SCH (08:13)
[2020-08-28] MEDS: CHOLECALCIFEROL 1,000 UNITS 25 MCG TAB PO SCH (08:13)
[2020-08-28] MEDS: SUCRALFATE 1 GM/10 ML UDC PO SCH ×2 (08:13→16:54)
[2020-08-28] MEDS: FLUTICASONE/VILANTEROL 200/25MCG 14 PUFFS/INHALER INH SCH (08:14)
[2020-08-28] MEDS: INSULIN GLARGINE SOLOSTAR 100 UNITS/ML 3 ML PEN SC SCH (08:16)
[2020-08-28] MEDS: AMOXICILLIN/CLAVULANATE 500 MG TAB PO SCH ×2 (08:20→16:54)
[2020-08-28] MEDS: HEPARIN 100 UNIT/ML 5ML FLUSH FLUSH PRN (08:56)
--- NOTE | 2020-08-28 13:36 | Hospitalist Progress Note ---
Date of Service August 28, 2020 Assessment & Plan (1) Right lower lobe pneumonia: RLL pneumonia, Hypoxemic Respiratory Failure Pt presented after complication of hypoxia during an endoscopy that resulted in termination of the procedure. CXR showed RLL pneumonia, likely aspirated Hypoxia resolved Pt was originally started on pip-tazo and transitioned to augmentin continue duonebs prn, breo ellipta 1 puff daily, and incentive spirometry and flutter valve. Breathing is improving back to patient's baseline FLORENCIA on CKD Creatinine increased from 1.67 on presentation to 2.61 yesterday Improved to 1.65 today with increased fluid intake Continue to encourage PO intake and will recheck BMP in am bumetanide and spironolactone held continue valsartan Hyperkalemia Unclear cause, intiially could have been from dehydration and spironolactone use, now maybe buoyed by potassium in augmentin? Will continue to monitor fluid status and recheck BMP in am Weakness Patient with fatigue on ambulation shortness of breath and dizzyness, per son lives at home alone and there is great concern about her returning home by herself. PT feels patient may benefit from SNF, Awaiting OT, Family is trying to come home to help Ms. Narvaez, would likely benefit from home with home PT/OT Diplopia Patient developed diplopia yesterday tells me it was present when she first woke up this am but by now has resolved. Still feeling unsteady on her feet but seeing okay Pt's recent diplopia sounded to be binocular and horizontal, most likely due to dehydration or fatigue. While the pt did have a fall that resulted in head trauma, pt has shown no other neurological deficits on physical exam and has no other neurological symptoms other than the dizziness. The likelihood of a chronic, slow developing brain bleed is lower.Also on differential is mass effect from history of breast cancer, If neurological symptoms worsen, new neurological symptoms develop, or symptoms fail to continue to improve with adequate fluid resuscitation, brain MRI will be ordered. Hydrocodone PRN will be held per above and artificial tears will be given as needed. Resolved CAD/atrial flutter/Pulmonary hypertension Patient does have some degree of LVH and diastolic dysfunction but appears to have significant pulmonary hypertension, likely overdiuresing patient and will hold off on further diuresis until kidney function nears baseline. Do not believe that fluid overload contributed significantly to hypoxemic respiratory failure on presentation, rather aspiration and pulmonary hypertension Pt will continue Xarelto, nebivolol, isosorbide mononitrate, clopidogrel valsartan. Bumetanide and spironolactone will continue to be held. DVT PPx: Xarelto F/E/N: Heart healthy diet encouraging PO fluid intake Dispo: Patient currently unsteady on her feet son concerned about her returning home alone, may benefit from getting family in home and home PT vs SNF placement FULL CODE Admission and Anticipated Discharge Date Admission Date: August 23, 2020 Supervising Physician Co-Signing Physician Notes I personally examined the patient and verified all cunha points of history and exam, discussed case, and agree with decision making with Dr Stallworth. feeling good diplopia improving. feels good about plan for home w family support. Vitals noted, in general she is awake and alert pleasant no distress. HEENT normocephalic atraumatic mucous membranes are moist. breathing unlabored no accessory muscles good effort Probable aspiration pneumoniasuspect chronic laryngeal reflux leading to aspiration, I doubt this was really a procedural complication, but rather probably a sequelae of chronic aspiration, with her respiratory difficulty simply being unmasked with procedural sedation. Continue antibiotics and pulmonary toilet. CT reassuring that this was not cancer related. can stop augmentin soon. Laryngeal pharyngeal refluxongoing outpatient management with GI. Strongly suspect this is the cause of her chronic cough MEJIA - likely chronic pneumonia and pulmonary htn diplopia - nonspecific - likely fluid/sugar/fatigue related - slowly improving weakness - PT/OT eval and treat, anticipate home w home PT Otherwise as above Subjective Emily is doing fairly well today, her cough is improving she feels her breathing is closer to her baseline and her diplopia and unsteadiness with walking has improved. Spoke to son and daughter in law who are arranging family to come stay with her [place] [employer] [place]. They are going to try to do this in the next 24 hours. Discussed that this would likely be a safe option with home physical therapy. Review of Systems Review of Systems: All systems reviewed & are unremarkable except as noted in HPI & below Physical Exam Physical Exam: Constitutional: Well appearing 85 year old woman no acute distress coughing Eyes: Pupils equal round and reactive to light, ENMT: NAD Respiratory: Regular rate, coughing violently with any deep inspiration, crackles appreciated bilaterally R>L Cardiovascular: Regular rate regular rhythm no murmurs rubs or gallops. GI: Abdomen soft non tender MSK: NAD Neuro: No focal deficits, cranial nerve exam normal. Results & Data Results & Data ([facility]) Vital Signs (Past 12 Hours) Vital Signs Temp Pulse Pulse Pulse Resp BP Pulse Ox 08/28/20 11:50 36.6 C 62 18 168/73 H 94 08/28/20 10:57 59 L 18 93 08/28/20 08:00 63 08/28/20 07:30 36.3 C L 61 18 181/81 H 99 08/28/20 07:06 63 18 90 08/28/20 03:57 36.6 C 78 22 176/75 H 92 08/28/20 02:41 68 Resident Activity Tracking Resident Involvement: Resident Care Provided Care Provided: Adult Hospital Medicine
--- NOTE | 2020-08-28 19:16 | Billing Data ---
Date of Service August 28, 2020 Coding Level of Care Code 60217 Subseq Hosp Care Lvl 2
[2020-08-28] MEDS: CARBOHYDRATES FOR HYPOGLYCEMIA PO PRN ×2 (19:48→20:09)
[2020-08-28] MEDS: ATORVASTATIN 40 MG TAB PO SCH (20:15)
[2020-08-28] MEDS: RIVAROXABAN 15 MG TAB PO SCH (20:15)
[2020-08-28] MEDS: CLOPIDOGREL BISULFATE 75 MG TAB PO SCH (20:16)
[2020-08-28] MEDS: FLUTICASONE PROPIONATE NA SPR 16 GM BTL NAE PRN (20:16)
[2020-08-28] MEDS: DOCUSATE SODIUM 100 MG CAP PO SCH (20:16)
[2020-08-28] MEDS: GABAPENTIN 300 MG CAP PO SCH (20:16)
[2020-08-29] MEDS ORDERED: INSULIN ASPART 100 UNITS/ML 3 ML PEN SC ONE (02:00)
[2020-08-29] MEDS: LEVOTHYROXINE SODIUM 150 MCG TABLET PO SCH (06:06)
[2020-08-29 06:53] LABS: Basophils # (auto) 0.03 K/uL (0-0.2); Basophils % (auto) 0.3 %; Eosinophils # (auto) 0.48 K/uL (0-0.5); Eosinophils % (auto) 4.4 %; Hematocrit (blood only) 32.5 % (37-47); Hemoglobin 10.2 g/dL (12.0-16.0); Immature Granulocytes # (auto) 0.02 K/uL (0.00-0.02); Immature Granulocytes % (auto) 0.2 %; Lymphocytes # (auto) 1.45 K/uL (1.2-3.4); Lymphocytes % (auto) 13.2 %; Mean Corpuscular Hgb Conc 31.4 g/dL (32-36); Mean Corpuscular Volume 89.3 fL (80-100); Mean Platelet Volume 10.8 fL (7.4-10.4); Monocytes # (auto) 0.71 K/uL (0.11-0.59); Monocytes % (auto) 6.5 %; Neutrophils # (auto) 8.27 K/uL (1.4-6.5); Neutrophils % (auto) 75.4 %; Platelet Count 214 K/uL (130-400); RDW Coefficient of Variation 15.9 % (11.5-14.5); RDW Standard Deviation 51.8 fL (36.4-46.3); Red Blood Count 3.64 M/uL (4.2-5.4); White Blood Count 10.96 K/uL (4.8-10.8)
[2020-08-29] MEDS: BUDESONIDE 0.5 MG/2 ML VIAL (PULMICORT) NEB SCH ×2 (07:23→19:37)
[2020-08-29] MEDS: ALBUT/IPRATROP 3MG/0.5MG NEB 3 ML VIAL NEB SCH ×4 (07:23→19:37)
[2020-08-29 07:30] LABS: BUN Creatinine Ratio 30.7 (10-20); Calcium 9.3 mg/dl (8.5-10.1); Creatinine Clr Calc Pharmacy 32.3 ml/min; Est GFR (African American) 37.3 ml/min; Est GFR (Non-African American) 32.2 ml/min; Potassium 5.4 mmol/L (3.5-5.1)
[2020-08-29] MEDS: FAMOTIDINE 20 MG TAB PO SCH (08:18)
[2020-08-29] MEDS: METOPROLOL TARTRATE 25 MG TAB PO SCH ×2 (08:18→21:15)
[2020-08-29] MEDS: SUCRALFATE 1 GM/10 ML UDC PO SCH ×2 (08:18→17:15)
[2020-08-29] MEDS: PRAMIPEXOLE DIHYDROCHLO 0.25 MG TAB PO SCH ×2 (08:18→22:46)
[2020-08-29] MEDS: CHOLECALCIFEROL 1,000 UNITS 25 MCG TAB PO SCH (08:18)
[2020-08-29] MEDS: CALCIUM CARBONATE 1250MG TAB PO SCH ×2 (08:18→21:16)
[2020-08-29] MEDS: PANTOprazole 40 MG TAB PO SCH (08:18)
[2020-08-29] MEDS: AMOXICILLIN/CLAVULANATE 500 MG TAB PO SCH ×2 (08:18→17:15)
[2020-08-29] MEDS: FLUTICASONE PROPIONATE NA SPR 16 GM BTL NAE PRN ×2 (08:19→21:17)
[2020-08-29] MEDS: FLUTICASONE/VILANTEROL 200/25MCG 14 PUFFS/INHALER INH SCH (08:19)
[2020-08-29] MEDS: ISOSORBIDE MONO EXTENDED REL 60 MG TABCR PO SCH (08:19)
[2020-08-29] MEDS: MULTIVITAMIN TAB PO SCH (08:19)
[2020-08-29] MEDS: INSULIN GLARGINE SOLOSTAR 100 UNITS/ML 3 ML PEN SC SCH (08:21)
[2020-08-29] MEDS: INSULIN ASPART 100 UNITS/ML 3 ML PEN SC SCH ×4 (08:21→21:20)
--- NOTE | 2020-08-29 09:53 | Pharmacy Report ---
Pharmacy Glycemic Short Note 2 - Date of Service August 29, 2020 - Glycemic Short BSG Results (Last 24 hours): 08/28/20 08/28/20 08/28/20 11:56 16:33 19:48 Glucose POC Glucose 166 H 116 H 61 L* 08/28/20 08/29/20 08/29/20 20:06 02:05 06:14 Glucose 125 H POC Glucose 80 129 H 08/29/20 07:32 Glucose POC Glucose 178 H OUTPATIENT ANTIDIABETIC REGIMEN: * V-Go NovoLog Pump * Basal: 1.25 units/hr (total 30 units) * Bolus: ~3 clicks (6 units) breakfast, ~2 clicks (4 units) lunch, 4 (8 units) dinner (*adjusts dose based on food intake/BG) * HbA1c: 8.3% (08/24/20) ASSESSMENT: 08/28 * Pt has received 86 units of insulin over the past 24hrs * 30 units of basal with Lantus * 56 units of bolus with NovoLog * BSGs 591-740-112-116-61/80-129-178 mg/dl * AM fasint elevated yesterday at 163 and today at 178mg/dl. Will increase basal insulin slightly * Post-prandial LOW last evening - will loosen CF/CR insulin * Regimen is weighted towards bolus insulin - increasing basal and loosening CF/CR will help to evenly distribute TDD to closer to 50%basal:50%prandial 08/27: * BSGs improved throughout the day yesterday, 254, 277, 164, and 123 mg/dL * Received 91 units of insulin yesterday - 45 units of basal, 46 units of prandial/correctional bolus * Patient received increased dose of basal insulin yesterday to make up for reduced dose on 08/25 * Will continue patient's home basal dose today - 30 units 08/26: * 85yo T2DM female with adequate outpatient control per recent A1c based on age/co-morbidities. * Pt with sustained hyperglycemia secondary in basal insulin deficiency dosing. Outpatient dosing is 30 units daily but pt only receiving 16 units daily in house. Pt did receive 32 units of Lantus on 08/24 (16 units @ 0117 when admitted and then 16 units again at 0833). Pt only received 16 units of basal on 08/25. Likely outpatient dosing needs stressed for infection. * Will stress basal today - make up the ~15 units that were missed yesterday and then resume outpatient dosing of basal insulin 30 units SQ daily tomorrow. * Further tighten CF/CR and lower goal range from 140-180 to 110-140 mg/dl. * Goal is to maintain BSGs <180 mg/dl to promote healing PLAN FOR INPATIENT GLYCEMIC CONTROL: * Basal insulin: increase * Lantus 35 units SC daily * Bolus insulin: loosen CF/CR * NovoLog per scale ACHS or Q6hrs while NPO * Goal Range: Low 110 mg/dL - High 140 mg/dL * Correction Factor: 20 mg/dL/unit * Nutritional / Prandial insulin per carb ratio of 1 unit per 5 grams CHO consumed PLAN FOR DISCHARGE: * A1c is in goal range for age/co-morbidities. No changes needed to outpatient regimen.
--- NOTE | 2020-08-29 10:18 | Hospitalist Progress Note ---
Date of Service August 29, 2020 Assessment & Plan (1) Right lower lobe pneumonia: 85 y/o F w/ pMHx. of A. fib on anticoagulation, hypothyroid, breast cancer, GERD, chronic cough (2 years), HTN, HLD, CAD s/p stent X2 (2017), DM (insulin pump) presents with hypoxia after endoscopy with concern for aspiration. RLL pneumonia, Hypoxemic Respiratory Failure, improved Pt. presented after complication of hypoxia during an endoscopy that resulted in termination of the procedure. CXR showed RLL pneumonia, likely aspirated Hypoxia resolved, breathing is improving back to patient's baseline Pt was originally started on pip-tazo and transitioned to Augmentin (started on 08/25) - continue duonebs prn, Breo Ellipta 1 puff daily, and incentive spirometry and flutter valve. FLORENCIA on CKD Creatinine increased from 1.67 on presentation to 2.61 Improved to 1.48 today with increased fluid intake Continue to encourage PO intake - bumetanide and spironolactone held - continue valsartan - continue to follow with AM BMP Hyperkalemia Possibly sec to hypovolemia with spironolactone - spironolactone on hold - slightly improved to 5.4 this AM - continue to follow while inpatient Weakness Patient with fatigue on ambulation, shortness of breath, and dizziness, per son lives at home alone and there is great concern about her returning home by herself. PT feels patient may benefit from SNF, - Awaiting OT - Family is trying to come home to help Ms. Narvaez, would likely benefit from home with home PT/OT Diplopia, resolved Patient developed diplopia one day prior that resolved No neurological deficit. likely from hypovolemia. CAD/atrial flutter/Pulmonary hypertension - continue Xarelto, nebivolol, isosorbide mononitrate, clopidogrel valsartan. Bumetanide and spironolactone will continue to be held today. DVT PPx: Xarelto F/E/N: Heart healthy diet encouraging PO fluid intake Dispo: Patient currently unsteady on her feet son concerned about her returning home alone, may benefit from getting family in home and home PT vs SNF placement FULL CODE Admission and Anticipated Discharge Date Admission Date: August 23, 2020 Supervising Physician Co-Signing Physician Notes Resident Physician Supervision Note: I independently interviewed and examined the patient and verified the cunha history and physical, reviewed labs and image studies and agree with resident Dr. Bingham findings and care plan. Subjective Emily Narvaez is doing pretty good with improvement in her cough from admission. She lives at home alone but has family coming in that would be able to pick her up on Saturday. She also brought up that she was having symptoms consistent with RLS last night that resolved when she moves around. She notes that when she walks she becomes somewhat short of breath. Review of Systems Review of Systems: Constitutional: denies fevers, chills Cardiac: denies chest pain, palpitations Pulm.: admits chronic cough and shortness of breath with walking Neuro: denies headache : denies urinary frequency, urgency, pain Physical Exam Constitutional: WD/WN, vitals as above Eyes: PERRL, conjunctivae normal, anicteric sclerae ENMT: external ear and nose normal, oropharynx normal Neck: normal visual inspection Respiratory: normal respiratory effort, lungs clear to auscultation Cardiovascular: RRR, no murmur, no edema Gastrointestinal (Abdomen): normal bowel sounds, soft, nontender, no hepatosplenomegaly Skin: no rashes, warm and dry Neurologic: no focal motor deficits Psychiatric: Orientation: alert Eye Contact: good eye contact Speech: no pressured speech Affect: euthymic affect Results & Data Results & Data ([facility]) Vital Signs (Past 12 Hours) Vital Signs Temp Pulse Pulse Resp BP Pulse Ox 08/29/20 07:46 36.6 C 66 16 180/74 H 91 08/29/20 07:42 65 08/29/20 07:24 70 18 96 08/29/20 03:30 36.5 C 57 L 18 139/76 95 08/29/20 03:17 62 18 93 08/29/20 01:14 62 08/28/20 23:44 61 18 92 CBC Results Results Complete Blood Count Results: RBC 3.64 M/uL (4.2-5.4) L 08/29/20 WBC 10.96 K/uL (4.8-10.8) H 08/29/20 Hgb 10.2 g/dL (12.0-16.0) L 08/29/20 Hct 32.5 % (37-47) L 08/29/20 Plt Count 214 K/uL (130-400) 08/29/20 Chemistry (BMP) Results BMP Results: Sodium 138 mmol/L (136-145) 08/29/20 Potassium 5.4 mmol/L (3.5-5.1) H 08/29/20 Chloride 108 mmol/L (98-107) H 08/29/20 BUN 45 mg/dl (7-18) H 08/29/20 Creatinine 1.48 mg/dl (0.6-1.2) H 08/29/20 Glucose 125 mg/dl (70-99) H 08/29/20 Resident Activity Tracking Resident Involvement: Resident Care Provided Care Provided: Adult Hospital Medicine
[2020-08-29] MEDS: RIVAROXABAN 15 MG TAB PO SCH (21:15)
[2020-08-29] MEDS: GABAPENTIN 300 MG CAP PO SCH (21:15)
[2020-08-29] MEDS: CLOPIDOGREL BISULFATE 75 MG TAB PO SCH (21:16)
[2020-08-29] MEDS: DOCUSATE SODIUM 100 MG CAP PO SCH (21:16)
[2020-08-29] MEDS: ATORVASTATIN 40 MG TAB PO SCH (21:16)
[2020-08-29] MEDS: DEXTROMETHORPHAN POLYMR COMPLX 30 MG/5 ML UDP PO PRN (21:17)
[2020-08-30] MEDS: LEVOTHYROXINE SODIUM 150 MCG TABLET PO SCH (05:34)
[2020-08-30] MEDS: HEPARIN 100 UNIT/ML 5ML FLUSH FLUSH PRN (05:34)
[2020-08-30 05:39] LABS: Basophils # (auto) 0.04 K/uL (0-0.2); Basophils % (auto) 0.3 %; Eosinophils # (auto) 0.47 K/uL (0-0.5); Hematocrit (blood only) 31.5 % (37-47); Immature Granulocytes # (auto) 0.03 K/uL (0.00-0.02); Immature Granulocytes % (auto) 0.3 %; Lymphocytes # (auto) 1.58 K/uL (1.2-3.4); Lymphocytes % (auto) 13.3 %; Mean Corpuscular Hemoglobin 27.6 pg (25-34); Mean Corpuscular Hgb Conc 31.7 g/dL (32-36); Mean Platelet Volume 10.1 fL (7.4-10.4); Monocytes # (auto) 0.85 K/uL (0.11-0.59); Monocytes % (auto) 7.2 %; Neutrophils # (auto) 8.91 K/uL (1.4-6.5); Neutrophils % (auto) 74.9 %; Platelet Count 194 K/uL (130-400); RDW Coefficient of Variation 15.8 % (11.5-14.5); RDW Standard Deviation 50.5 fL (36.4-46.3); Red Blood Count 3.62 M/uL (4.2-5.4); White Blood Count 11.88 K/uL (4.8-10.8)
[2020-08-30 06:10] LABS: BUN Creatinine Ratio 31.7 (10-20); Calcium 9.1 mg/dl (8.5-10.1); Creatinine Clr Calc Pharmacy 33.9 ml/min; Est GFR (African American) 39.5 ml/min; Est GFR (Non-African American) 34.1 ml/min; Potassium 5.5 mmol/L (3.5-5.1)
[2020-08-30] MEDS: BUDESONIDE 0.5 MG/2 ML VIAL (PULMICORT) NEB SCH ×2 (07:34→19:07)
[2020-08-30] MEDS: ALBUT/IPRATROP 3MG/0.5MG NEB 3 ML VIAL NEB SCH (07:34)
--- NOTE | 2020-08-30 07:57 | Hospitalist Progress Note ---
Date of Service August 30, 2020 Assessment & Plan Admission and Anticipated Discharge Date Admission Date: August 23, 2020 85 y/o F w/ pMHx. of A. fib on anticoagulation, hypothyroid, breast cancer, GERD, chronic cough (2 years), HTN, HLD, CAD s/p stent X2 (2017), DM (insulin pump) presents with hypoxia after endoscopy with concern for aspiration. RLL pneumonia, Hypoxemic Respiratory Failure, improved Pt. presented after complication of hypoxia during an endoscopy that resulted in termination of the procedure. CXR showed RLL pneumonia, likely aspirated Hypoxia resolved, breathing is improving back to patient's baseline Pt was originally started on pip-tazo and transitioned to Augmentin (started on 08/25) - continue duonebs prn, Breo Ellipta 1 puff daily, and incentive spirometry and flutter valve. FLORENCIA on CKD Creatinine increased from 1.67 on presentation to 2.61 Improved to 1.41 today with increased fluid intake Continue to encourage PO intake - bumetanide and spironolactone held - continue valsartan - continue to follow with AM BMP Hyperkalemia Possibly sec to hypovolemia with spironolactone, discussed with pharmacy and no clear medication that is contributing to the e levated potassium - spironolactone on hold - stable at 5.5 this AM - continue to follow while inpatient Weakness Patient with fatigue on ambulation, shortness of breath, and dizziness, per son lives at home alone and there is great concern about her returning home by herself. PT feels patient may benefit from SNF, - Awaiting OT - Family is trying to come home to help Ms. Narvaez, would likely benefit from home with home PT/OT Diplopia, resolved Patient developed diplopia one day prior that resolved No neurological deficit. likely from hypovolemia. CAD/atrial flutter/Pulmonary hypertension was in atrial fibrillation today, rate controlled converted back to normal sinus this afternoon - continue Xarelto, nebivolol, isosorbide mononitrate, clopidogrel valsartan. Bumetanide and spironolactone will continue to be held today. - continue to monitor on tele while inpatient DVT PPx: Xarelto F/E/N: Heart healthy diet encouraging PO fluid intake Dispo: likely home tomorrow with family support and services Supervising Physician Co-Signing Physician Notes Resident Physician Supervision Note: I independently interviewed and examined the patient and verified the cunha history and physical, reviewed labs and image studies and agree with resident Dr. Bingham findings and care plan. Subjective Doing well today, she was not having any sensation of palpitations and does not note that she can feel when she is in atrial fibrillation. She had no concerns or questions after talking this morning. Tele: atrial fibrillation 70's-80's started around 17:00 yesterday Nursing notified that the patient converted back to NSR this afternoon. Review of Systems Review of Systems: Constitutional: denies fevers, chills Cardiac: denies chest pain, palpitations Pulm.: admits chronic cough and shortness of breath with walking Neuro: denies headache : denies urinary frequency, urgency, pain Physical Exam Physical Exam: Constitutional WD/WN, vitals as above Eyes PERRL, conjunctivae normal, anicteric sclerae ENMT external ear and nose normal, oropharynx normal Neck normal visual inspection Respiratory normal respiratory effort, lungs clear to auscultation Cardiovascular irregular rhythm, no murmur, no edema Gastrointestinal (Abdomen) normal bowel sounds, soft, nontender, no hepatosplenomegaly Skin no rashes, warm and dry Neurologic no focal motor deficits Psychiatric Orientation: alert Eye Contact: good eye contact Speech: no pressured speech Affect: euthymic affect Results & Data Results & Data ([facility]) Vital Signs (Past 12 Hours) Vital Signs Temp Pulse Pulse Resp BP Pulse Ox 08/30/20 07:37 36.6 C 62 18 135/72 92 08/30/20 07:35 65 18 95 08/30/20 03:38 70 16 90 08/30/20 03:00 36.8 C 76 20 131/79 92 08/30/20 00:55 87 08/29/20 23:17 107 H 16 96 08/29/20 22:18 36.6 C 82 18 144/72 H 93 CBC Results Results Complete Blood Count Results: RBC 3.62 M/uL (4.2-5.4) L 08/30/20 WBC 11.88 K/uL (4.8-10.8) H 08/30/20 Hgb 10.0 g/dL (12.0-16.0) L 08/30/20 Hct 31.5 % (37-47) L 08/30/20 Plt Count 194 K/uL (130-400) 08/30/20 Chemistry (BMP) Results BMP Results: Sodium 137 mmol/L (136-145) 08/30/20 Potassium 5.5 mmol/L (3.5-5.1) H 08/30/20 Chloride 108 mmol/L (98-107) H 08/30/20 BUN 45 mg/dl (7-18) H 08/30/20 Creatinine 1.41 mg/dl (0.6-1.2) H 08/30/20 Glucose 160 mg/dl (70-99) H 08/30/20 Resident Activity Tracking Resident Involvement: Resident Care Provided Care Provided: [facility]
[2020-08-30] MEDS: INSULIN ASPART 100 UNITS/ML 3 ML PEN SC SCH ×4 (08:13→20:31)
[2020-08-30] MEDS: AMOXICILLIN/CLAVULANATE 500 MG TAB PO SCH ×2 (08:17→17:29)
[2020-08-30] MEDS: SUCRALFATE 1 GM/10 ML UDC PO SCH ×2 (08:17→17:30)
[2020-08-30] MEDS: CHOLECALCIFEROL 1,000 UNITS 25 MCG TAB PO SCH (08:18)
[2020-08-30] MEDS: CALCIUM CARBONATE 1250MG TAB PO SCH ×2 (08:18→20:33)
[2020-08-30] MEDS: FAMOTIDINE 20 MG TAB PO SCH (08:18)
[2020-08-30] MEDS: FLUTICASONE/VILANTEROL 200/25MCG 14 PUFFS/INHALER INH SCH (08:19)
[2020-08-30] MEDS: INSULIN GLARGINE SOLOSTAR 100 UNITS/ML 3 ML PEN SC SCH (08:20)
[2020-08-30] MEDS: ISOSORBIDE MONO EXTENDED REL 60 MG TABCR PO SCH (08:20)
[2020-08-30] MEDS: METOPROLOL TARTRATE 25 MG TAB PO SCH ×2 (08:21→20:33)
[2020-08-30] MEDS: MULTIVITAMIN TAB PO SCH (08:21)
[2020-08-30] MEDS: PANTOprazole 40 MG TAB PO SCH (08:21)
[2020-08-30] MEDS ORDERED: ALBUT/IPRATROP 3MG/0.5MG NEB 3 ML VIAL NEB PRN (08:22)
[2020-08-30] MEDS: DEXTROMETHORPHAN POLYMR COMPLX 30 MG/5 ML UDP PO PRN (18:33)
[2020-08-30] MEDS: GABAPENTIN 300 MG CAP PO SCH (20:33)
[2020-08-30] MEDS: ATORVASTATIN 40 MG TAB PO SCH (20:33)
[2020-08-30] MEDS: CLOPIDOGREL BISULFATE 75 MG TAB PO SCH (20:33)
[2020-08-30] MEDS: RIVAROXABAN 15 MG TAB PO SCH (20:33)
[2020-08-30] MEDS: DOCUSATE SODIUM 100 MG CAP PO SCH (20:34)
[2020-08-30] MEDS: PRAMIPEXOLE DIHYDROCHLO 0.25 MG TAB PO SCH (20:34)
[2020-08-31] MEDS: LEVOTHYROXINE SODIUM 150 MCG TABLET PO SCH (05:32)
[2020-08-31] MEDS: BUDESONIDE 0.5 MG/2 ML VIAL (PULMICORT) NEB SCH (07:36)
--- NOTE | 2020-08-31 07:50 | Pharmacy Report ---
Pharmacy Glycemic Short Note 2 - Date of Service August 31, 2020 - Glycemic Short BSG Results (Last 24 hours): 08/30/20 08/30/20 08/30/20 07:53 11:26 16:28 POC Glucose 180 H 135 H 126 H 08/30/20 08/31/20 20:16 07:27 POC Glucose 148 H 119 H OUTPATIENT ANTIDIABETIC REGIMEN: * V-Go NovoLog Pump * Basal: 1.25 units/hr (total 30 units) * Bolus: ~3 clicks (6 units) breakfast, ~2 clicks (4 units) lunch, 4 (8 units) dinner (*adjusts dose based on food intake/BG) * HbA1c: 8.3% (08/24/20) ASSESSMENT: 08/31 * BSGs reasonably controlled yesterday, 180, 135, 126, and 148 mg/dL * Received 72 units of insulin (35 units of basal and 37 units of prandial/correctional insulin) * Fasting BSG of 119 mg/dL this morning * No changes anticipated for today 08/28 * Pt has received 86 units of insulin over the past 24hrs * 30 units of basal with Lantus * 56 units of bolus with NovoLog * BSGs [phone]/80-129-178 mg/dl * AM fasint elevated yesterday at 163 and today at 178mg/dl. Will increase basal insulin slightly * Post-prandial LOW last evening - will loosen CF/CR insulin * Regimen is weighted towards bolus insulin - increasing basal and loosening CF/CR will help to evenly distribute TDD to closer to 50%basal:50%prandial 08/26: * 85yo T2DM female with adequate outpatient control per recent A1c based on age/co-morbidities. * Pt with sustained hyperglycemia secondary in basal insulin deficiency dosing. Outpatient dosing is 30 units daily but pt only receiving 16 units daily in house. Pt did receive 32 units of Lantus on 08/24 (16 units @ 0117 when admitted and then 16 units again at 0833). Pt only received 16 units of basal on 08/25. Likely outpatient dosing needs stressed for infection. * Will stress basal today - make up the ~15 units that were missed yesterday and then resume outpatient dosing of basal insulin 30 units SQ daily tomorrow. * Further tighten CF/CR and lower goal range from 140-180 to 110-140 mg/dl. * Goal is to maintain BSGs <180 mg/dl to promote healing PLAN FOR INPATIENT GLYCEMIC CONTROL: * Basal insulin: continue * Lantus 35 units SC daily * Bolus insulin: loosen CF/CR * NovoLog per scale ACHS or Q6hrs while NPO * Goal Range: Low 110 mg/dL - High 140 mg/dL * Correction Factor: 20 mg/dL/unit w/ lunch, dinner, and HS (15 mg/dL/unit w/ breakfast) * Nutritional / Prandial insulin per carb ratio of 1 unit per 5 grams CHO consumed w/ lunch, dinner, and HS (1 unit per 4 grams CHO w/ breakfast) PLAN FOR DISCHARGE: * A1c is in goal range for age/co-morbidities. No changes needed to outpatient regimen.
[2020-08-31] MEDS: INSULIN ASPART 100 UNITS/ML 3 ML PEN SC SCH ×2 (08:38→12:34)
[2020-08-31] MEDS: SUCRALFATE 1 GM/10 ML UDC PO SCH (08:39)
[2020-08-31] MEDS: FLUTICASONE/VILANTEROL 200/25MCG 14 PUFFS/INHALER INH SCH (08:40)
[2020-08-31] MEDS: CALCIUM CARBONATE 1250MG TAB PO SCH (08:40)
[2020-08-31] MEDS: FAMOTIDINE 20 MG TAB PO SCH (08:40)
[2020-08-31] MEDS: AMOXICILLIN/CLAVULANATE 500 MG TAB PO SCH (08:40)
[2020-08-31] MEDS: CHOLECALCIFEROL 1,000 UNITS 25 MCG TAB PO SCH (08:40)
[2020-08-31] MEDS: BUMETANIDE 1 MG TAB PO SCH (08:40)
[2020-08-31] MEDS: INSULIN GLARGINE SOLOSTAR 100 UNITS/ML 3 ML PEN SC SCH (08:41)
[2020-08-31] MEDS: METOPROLOL TARTRATE 25 MG TAB PO SCH (08:41)
[2020-08-31] MEDS: ISOSORBIDE MONO EXTENDED REL 60 MG TABCR PO SCH (08:41)
[2020-08-31] MEDS: PANTOprazole 40 MG TAB PO SCH (08:41)
[2020-08-31] MEDS: MULTIVITAMIN TAB PO SCH (08:41)
[2020-08-31 09:23] LABS: BUN Creatinine Ratio 32.9 (10-20); Calcium 9.5 mg/dl (8.5-10.1); Creatinine Clr Calc Pharmacy 34.3 ml/min; Est GFR (African American) 40.2 ml/min; Est GFR (Non-African American) 34.7 ml/min; Potassium 4.9 mmol/L (3.5-5.1)
[2020-08-31 11:14] VITALS: BP 147/71; TEMP 97.9; O2SAT 92
--- NOTE | 2020-08-31 11:35 | Discharge Summary ---
Date of Service August 31, 2020 Admission HPI Per Admitting Provider The patient is 85-year-old female with a past medical history including breast cancer, CAD, atrial flutter with RVR, PAD, carotid artery stenosis, GERD, gout, diabetes mellitus, LPRD, dysphagia, chronic aspiration, pulmonary hypertension, CKD stage IV and chronic anticoagulation. To further assess the patient's persistent cough over the past 2 years, the patient underwent endoscopy earlier in the day, but she became hypoxic in the endoscopy procedure had to be stopped. The patient has had the COVID-19 vaccine, and she was COVID-19 negative in ED. Pertinent abnormal laboratories: WBC 16.16, hemoglobin 11.4, potassium 6.0, glucose 208, creatinine 1.67, lactic acid 2.1. Chest x-ray shows a right lower lobe pneumonia. Treatment by the ED included the following: Cefepime 2 g IV, Solu-Medrol 60 mg IV and a DuoNeb. Admission Exam Per Admitting Provider The patient is awake, alert and oriented 3, well developed and well nourished, normocephalic and atraumatic, lying in bed and in no acute distress. HEENT--PERRL, EOMI, mucous membranes and oropharynx dry. Neck--supple. No JVD. No bruits. Thyroid normal, trachea midline, no adenopathy . Heart--normal S1 and S2. No murmurs, rubs or gallops. Lungs--decreased breath breath sounds right base. Mild respiratory distress, no accessory muscle use. Persistent cough Abdomen--normal bowel sounds and soft. Nontender. Nondistended, no hernias or masses, no organomegaly. Extremities--no cyanosis or clubbing. No edema. Dermatologic--normal skin turgor, normal color, no abnormal lymph nodes, no rash. Neurologic--cranial nerves II through XII grossly intact. Rheumatologic--normal range of motion. Psychiatric--normal affect. Principal Diagnosis RLL pneumonia chronic cough HTN atrial fibrillation on anticoagulation Discharge Exam Constitutional WD/WN, vitals as above Eyes PERRL, conjunctivae normal, anicteric sclerae ENMT external ear and nose normal, oropharynx normal Neck normal visual inspection Respiratory normal respiratory effort, lungs clear to auscultation Cardiovascular regular rhythm, no murmur, no edema Gastrointestinal (Abdomen) normal bowel sounds, soft, nontender, no hepatosplenomegaly Skin no rashes, warm and dry Neurologic no focal motor deficits Psychiatric Orientation: alert Eye Contact: good eye contact Speech: no pressured speech Affect: euthymic affect Discharge Data Allergies Allergy/AdvReac Type Severity Reaction Status Date / Time cat dander Allergy Intermediate itching Verified 08/23/20 08:32 eyes, blisters pseudoephedrine AdvReac Intermediate Hallucinati Verified 08/23/20 08:32 ons Consultations 08/23/20 18:59 ED Decision to Admit Stat Ordered Studies 08/27/20 07:50 CT chest diagnostic wo con Routine Hospital Course (1) Right lower lobe pneumonia: 85 y/o F w/ pMHx. of A. fib on anticoagulation, hypothyroid, breast cancer, GERD, chronic cough (2 years), HTN, HLD, CAD s/p stent X2 (2017), DM (i nsulin pump) presents with hypoxia after endoscopy with concern for aspiration pneumonia. RLL pneumonia, Hypoxemic Respiratory Failure, resolved Pt. presented after complication of hypoxia during an endoscopy that resulted in termination of the procedure. CXR showed RLL pneumonia, likely aspirated Hypoxia resolved, breathing is improving back to patient's baseline Pt. was originally started on pip-tazo and transitioned to Augmentin and completed 7 day course FLORENCIA on CKD Creatinine increased from 1.67 on presentation to 2.61 Improved to 1.39 today with increased fluid intake Continue to encourage PO intake - Spironolactone held Hyperkalemia, resolved Possibly sec to hypovolemia with Spironolactone - spironolactone on hold, discuss with primary restarting vs. switching - potassium 4.9 on discharge Weakness home with family and PT and HH Diplopia, resolved Patient developed diplopia early in her hospitalization that resolved No other neurological deficit. likely from hypovolemia. CAD/atrial flutter/Pulmonary hypertension was in atrial fibrillation for approximately 24 hours, rate controlled converted back to normal sinus prior to discharge - continue Xarelto, Nebivolol, Isosorbide mononitrate, Clopidogrel Valsartan. Bumetanide and Spironolactone will continue to be held today. Total Time Total Time Spent Total Time Spent (In Minutes): see attending attestation Discharge Plan Discharge Items Patient Disposition: Home - Home Health Services Reason For Visit: COUGHING, SOB, DIZZY Discharge Diagnosis: RLL pna Condition on Discharge: Fair Activity: Per Instructions section Non-emergency contact: Primary Care Provider Call non-emergency contact if: your symptoms worsen Follow-up/Referrals: Tanner López MD [Primary Care Provider] - 09/07/20 4:00 pm Diet: Carb Consistent or DM2 and Heart Healthy Addtl Attending Provider Instructions: Pneumonia After your procedure your oxygen level was low and imaging that was consistent with pneumonia. You were initially on IV antibiotics and these were transitioned to oral antibiotics and you have had improvement in your symptoms. If you develop worsening shortness of breath or fevers or chills, call or come in to get evaluated. Elevated potassium While in the hospital your potassium was elevated and this could be due to your blood pressure medication Spironolactone. We will have you stop this medication, and discuss with your primary doctor. Cough You have had a cough for cough for several years. As we discussed while you were here there are multiple causes of cough and you should have this further evaluated outside of the hospital with your primary care doctor to treat or potentially refer you for further testing. Weakness You live at home alone and we were concerned since you were having shortness of breath and dizziness. We are working on getting services in your home and you will have family there when you come home. Pending Studies at Discharge: No Stand-Alone Forms: [facility], Smoking Cessation Medications and DC Order Prescriptions: Continued multivitamin [Multiple Vitamins] tablet 1 tab PO QAM RF: 0 fluticasone propion-salmeterol 232-14 mcg/actuation aerosol powdr breath a ctivated 1 puffs inhalation QPM Qty: 1 RF: 0 clopidogrel 75 mg tablet 75 mg PO QPM Qty: 90 RF: 0 albuterol sulfate 90 mcg/actuation HFA aerosol inhaler 2 puffs inhalation Q4H PRN (Reason: SOB) Qty: 1 RF: 0 coenzyme Q10 100 mg capsule 100 mg PO QAM RF: 0 docusate sodium 100 mg capsule 100 mg PO HS RF: 0 exemestane 25 mg tablet 25 mg PO QAM RF: 0 isosorbide mononitrate 120 mg tablet extended release 24 hr 120 mg PO QAM Qty: 90 RF: 0 melatonin 5 mg capsule 5 mg PO QPM PRN (Reason: Insomnia) RF: 0 nebivolol 10 mg tablet 10 mg PO QPM RF: 0 nitroglycerin 0.4 mg tablet, sublingual 0.4 mg SL Q5M PRN (Reason: Chest Pain) Qty: 25 RF: 0 insulin aspart U-100 100 unit/mL solution See Rx Instructions subcut .COMPLEX RF: 0 denosumab 120 mg/1.7 mL (70 mg/mL) solution 120 mg subcut MONTHLY RF: 0 clobetasol 0.05 % shampoo 1 appln TOP DAILY PRN (Reason: ud) RF: 0 pantoprazole 40 mg tablet,delayed release (DR/EC) 40 mg PO QAM RF: 0 valsartan 40 mg tablet 40 mg PO QAM RF: 0 ketoconazole 2 % shampoo 1 applic topical DAILY PRN (Reason: ud) RF: 0 calcium carb-magnesium carb 1 tab PO BID RF: 0 azelastine 137 mcg (0.1 %) aerosol,spray 2 spray intranasal DAILY Qty: 30 RF: 3 cholecalciferol (vitamin D3) 1,000 unit capsule 1,000 units PO QAM RF: 0 Xarelto 15 mg Tablet 15 mg PO QPM Qty: 30 RF: 5 albuterol sulfate 1.25 mg/3 mL solution for nebulization 1.25 mg INH Q6H PRN (Reason: cough/wheeze) Qty: 90 RF: 0 atorvastatin [Lipitor] 40 mg tablet 40 mg PO QPM RF: 0 fluticasone propionate [Flonase Allergy Relief] 50 mcg/actuation spray,suspension 1 sprays INTNAS BID PRN (Reason: Nasal Congestion) RF: 0 hydrocodone-chlorpheniramine 10-8 mg/5 mL suspension,extended rel 12 hr 2.5 - 5 ml PO Q12H PRN (Reason: cough) Qty: 115 RF: 0 famotidine [Acid Brick [employer] Hand (famotidine)] 20 mg tablet 20 mg PO QAM RF: 0 bumetanide 1 mg tablet 2 mg PO QAM RF: 0 levothyroxine 150 mcg tablet 150 mcg PO DAILY RF: 0 pramipexole 0.25 mg tablet 0.25 mg PO HS RF: 0 sucralfate 100 mg/mL suspension 10 ml PO BID PRN (Reason: ud) RF: 0 Discontinued spironolactone 25 mg tablet 25 mg PO UD RF: 0 Discharge Orders: Discharge Order (Routine); Ordered 08/31/20 Ordered By: Francisco J Mistry/Other Patient Handouts: Managing Type 2 Diabetes, A1C Admission Data Admit Date/Time: 08/23/20 20:30 Attending Provider: Lula Hughes Admit Provider: Peter Cruz Primary Care Provider: Tanner López Other Providers: Peter Cruz ; [facility] ; Elijah Webb ; [facility] ; [facility] Other Interventions: Discharge Summary Assessment (RN) Last Done: 08/31/20 14:14 Resident Activity Tracking Resident Involvement: Resident Care Provided Care Provided: Adult Hospital Medicine CBC Results Results Complete Blood Count Results: RBC 3.62 M/uL (4.2-5.4) L 08/30/20 WBC 11.88 K/uL (4.8-10.8) H 08/30/20 Hgb 10.0 g/dL (12.0-16.0) L 08/30/20 Hct 31.5 % (37-47) L 08/30/20 Plt Count 194 K/uL (130-400) 08/30/20 Chemistry (BMP) Results BMP Results: Sodium 137 mmol/L (136-145) 08/31/20 Potassium 4.9 mmol/L (3.5-5.1) 08/31/20 Chloride 106 mmol/L (98-107) 08/31/20 BUN 46 mg/dl (7-18) H 08/31/20 Creatinine 1.39 mg/dl (0.6-1.2) H 08/31/20 Glucose 128 mg/dl (70-99) H 08/31/20
[2020-08-31 14:14] VITALS: PULSE 57
[2020-08-31] MEDS: HEPARIN 100 UNIT/ML 5ML FLUSH FLUSH PRN (14:30)
== END 2020-08-31 14:54 | disposition home health service (06) | DRG 177 ==
LOC: ED 16:33 → 2E 20:30 → SUATTDRO 20:30 → 2E 22:15 → 2W 08-24 17:50

== ENCOUNTER 2021-05-01 17:46 | Inpatient (IN) ==
[2021-05-01] MEDS ORDERED: PIPERACILLIN/TAZOBACTAM 4.5 GM/120 ML BAG IV ONE (18:07)
[2021-05-01] MEDS ORDERED: HYDROcodone/HOMATROPINE SYRUP 5MG/1.5MG 5ML UDP PO STA (18:09)
[2021-05-01] MEDS ORDERED: ALBUTEROL HFA 8 GM INHALER INH ONE (18:09)
--- NOTE | 2021-05-01 18:20 | XRay Report ---
XR chest 1V portable HISTORY: Atypical Chest Pain COMPARISON: Chest CT 05/01/2021. FINDINGS: No pneumothorax. No pleural fusions. The heart remains mildly enlarged. No new focal lung c onsolidations identified. No evidence for pulmonary edema. Right subclavian Port-A-Cath terminates in the proximal SVC. This remains unchanged. Reticulonodular interstitial thickening is also unchanged. This may be chronic. IMPRESSION: 1. No change in the chronic reticulonodular interstitial thickening. 2. No new focal lung consolidations. ACT 112: Negative or not required by law. Electronically signed by: Lloyd Aaron M.D. 05/01/2021 6:18 PM
[2021-05-01] MEDS ORDERED: ALBUTEROL 0.083% NEBU SOLN 3 ML VIAL NEB STA (18:44)
[2021-05-01] MEDS ORDERED: BENZONATATE 100 MG CAPSULE PO ONE (18:44)
[2021-05-01] MEDS ORDERED: guaiFENesin SUGAR FREE 100 MG/5 ML UDC PO STA (18:46)
[2021-05-01 18:52] LABS: Basophils # (auto) 0.04 K/uL (0-0.2); Basophils % (auto) 0.4 %; Eosinophils # (auto) 0.18 K/uL (0-0.5); Eosinophils % (auto) 1.6 %; Hematocrit (blood only) 35.8 % (37-47); Immature Granulocytes # (auto) 0.01 K/uL (0.00-0.02); Immature Granulocytes % (auto) 0.1 %; Lymphocytes % (auto) 16.1 %; Mean Corpuscular Hemoglobin 27.7 pg (25-34); Mean Corpuscular Hgb Conc 30.7 g/dL (32-36); Mean Corpuscular Volume 90.2 fL (80-100); Monocytes # (auto) 0.85 K/uL (0.11-0.59); Monocytes % (auto) 7.6 %; Neutrophils # (auto) 8.28 K/uL (1.4-6.5); Neutrophils % (auto) 74.2 %; Platelet Count 184 K/uL (130-400); RDW Coefficient of Variation 18.1 % (11.5-14.5); RDW Standard Deviation 58.4 fL (36.4-46.3); Red Blood Count 3.97 M/uL (4.2-5.4); White Blood Count 11.16 K/uL (4.8-10.8)
[2021-05-01 19:04] LABS: INR 1.3 (0.9-1.1); Partial Thromboplastin Ratio 1.3; Partial Thromboplastin Time 35.2 Seconds (21.0-31.0); Prothrombin Time 12.8 Seconds (9.0-12.0)
[2021-05-01 19:25] LABS: Anion Gap 12 (3-11); BUN Creatinine Ratio 18.2 (10-20); Blood Urea Nitrogen 82 mg/dl (6-23); Carbon Dioxide 25 mmol/L (21-32); Chloride 98 mmol/L (98-107); Est GFR (African American) 9.7 ml/min; Est GFR (Non-African American) 8.4 ml/min; Glucose 106 mg/dl (70-99(Fasting)); Lipase 74 U/L (11-82); Potassium 5.2 mmol/L (3.5-5.1); Sodium 135 mmol/L (136-145); Troponin I 0.04 ng/ml (0-0.04)
[2021-05-01] MEDS ORDERED: SODIUM CHLORIDE 0.9% 1000ML 500 ML IV ONE (19:39)
--- NOTE | 2021-05-01 19:54 | History & Physical Report ---
Date of Service May 01, 2021 Assessment & Plan (1) Acute kidney injury superimposed on CKD: Plan: 85 yo F Hx CKD IV with a baseline creatinine of 3.2, breast cancer with metastatic lesions to the L-spine, atrial flutter on Eliquis, GERD, chronic diastolic heart failure, CAD, chronic cough admitted for acute renal failure on CKD as well as with worsening cough and suspicion for pneumonia (atypical versus aspiration related). ARF on CKD: Presents with creatinine 4.51, significantly increased from baseline of 3.2 in the setting of increased Bumex use for weight gain. Patient is still making urine, no peaked T waves, K 5.2. No indication for emergent dialysis at this time. Hold Bumex, and will give small bolus 500cc NSS with reassessment of fluid status and repeat BMP in AM. Nephrology and Vascular Surgery consulted and appreciate recommendations. Has a fistula that was placed in January 2021. Pneumonia, hypoxia, acute on chronic cough: Presents with acute worsening of a chronic cough that she has had for several months as well as wheezing and brief episode of hypoxia in ER. Cough persistent in ER despite getting albuterol inh and 5ml hydrocodone/homatropine. Will order albuterol nebulizer now given wheezing on exam despite inhaler. Will also order hydrocodone/homatropine 10ml q4h as needed for cough. CT Chest shows tree-in-bud airspace opacities worsened as compared to previous imaging, worst in RLL. Differentials include atypical pneumonia versus aspiration pneumonia/pneumonitis. Legionella, Mycoplasma, influenza testing ordered. COVID-19 testing negative; tested positive on approximately 04/14/21 per [id number]. Speech consulted given Hx aspiration. Patient started on azithromycin and Zosyn; deescalate as able. DM2: Hold insulin pump in favor of basal/bolus insulin. DM2 diet. Breast cancer: History of, follows with Leigh Flores PA-C with Heme/Onc. Known to have metastatic lesion to the L spine, no change in size or new lesions on CTAP today. Continue exemestane. GERD: Continue pantoprazole and famotidine. Do not suspect this is contributing to cough, given on full dose therapy at home. CAD, diastolic CHF, HTN: History of CAD s/p LAD and D1 HORACE in July 2015. Continue Plavix, beta karsten, statin. Holding ARB in the setting of ARF. Echo 05/2020 demonstrated LVEF 60-65%, type II diastolic dysfunction. Does not appear fluid overloaded on exam nor on CT Chest. Chronically on Bumex 2mg PO daily; holding for ARF as noted above. Low sodium diet. AFlutter: Continue Eliquis and beta karsten. Hypothyroidism: Continue levothyroxine. Code Status: FULL CODE FEN: heart healthy, DM2, low sodium diet DVT ppx: Eliquis 2.5mg BID Dispo: Med/Surg with Telemetry (2) Aspiration, chronic pulmonary: (3) Diabetes: (4) GERD (gastroesophageal reflux disease): (5) CAD (coronary artery disease): (6) Chronic diastolic CHF (congestive heart failure): (7) Pneumonia: History of Present Illness Chief Complaint: Worsening cough, acute renal failure Primary Care Provider: Tanner López MD 85-year-old female past medical history significant for CKD IV with a baseline creatinine of 3.2, breast cancer with metastatic lesions to the L-spine, atrial flutter on Eliquis, GERD, chronic diastolic heart failure, CAD, chronic cough presented to the ER for worsening of cough. On chart review, ER provider noted that patient had had CT chest, abdomen and pelvis earlier today which showed worsening tree-in-bud opacities right greater than left lower lung valentino possibly suggestive of aspiration. It was also noted on BMP that patient's creatinine was 4.4 (baseline 3.2 in January). In the ER patient received hydrocodone's/homatroprine for cough, albuterol inhaler, and Zosyn IV. On my interview patient has difficulty speaking due to cough, and much of the history is provided by her [id number] who is at the bedside. Per [id number], Emily has a cough with speech at all times, but cough became worse today and is causing fatigue and difficulty catching her breath which is what prompted their ER visit. She is supposed to see Dr. Morris and Dr. Nagel later this week as she has had CKD IV for some time and had fistula placed in January 2021. Of note, per daughter, patient's "dry" weight is 183 pounds, and due to weight gain over the last week or so patient has been taking her Bumex twice daily instead of once daily at least for the last 3 days. She was also diagnosed with COVID-19 around April 14, but did not experience any shortness of breath or hypoxia secondary to this infection. She is COVID-19 vaccinated and has her booster. Daughter in law expressed concern today that Emily might not be safe living at home without support. She lives alone typically, but has been with her son and [id number] in [place] for the last month. Allergies Allergy/AdvReac Type Severity Reaction Status Date / Time cat dander Allergy Intermediate itching Verified 05/01/21 18:44 eyes, blisters pseudoephedrine AdvReac Intermediate Hallucinati Verified 05/01/21 18:44 ons hydroxyzine AdvReac hallucinati Verified 05/02/21 17:40 ons Home Medications Medication Instructions Recorded Confirmed Type albuterol sulfate 1.25 mg/3 mL 1.25 mg INH Q6H PRN #90 ml 12/02/17 05/01/21 Rx solution for nebulization clopidogrel 75 mg tablet 75 mg PO QPM #90 tab 12/11/18 05/01/21 History fluticasone 232 mcg-salmeterol 14 1 puffs INHALATION QPM #1 ea 12/11/18 05/01/21 History mcg/actuation breath activated powdr multivitamin (Multiple Vitamins) 1 tab PO QAM 12/11/18 05/01/21 History albuterol sulfate 90 mcg/actuation 2 puffs INHALATION Q4H PRN #1 gm 02/18/19 05/01/21 History aerosol inhaler coenzyme Q10 100 mg capsule 100 mg PO QAM cap 02/18/19 05/01/21 History denosumab 120 mg/1.7 mL (70 mg/mL) 120 mg SUBCUT MONTHLY ml 02/18/19 05/01/21 History subcutaneous solution docusate sodium 100 mg capsule 100 mg PO HS cap 02/18/19 05/01/21 History exemestane 25 mg tablet 25 mg PO QAM tab 02/18/19 05/01/21 History insulin aspart U-100 100 unit/mL See Rx Instructions SUBCUT 02/18/19 05/01/21 History subcutaneous solution .COMPLEX ml isosorbide mononitrate 120 mg 120 mg PO QAM #90 tab 02/18/19 05/01/21 History tablet,extended release 24 hr nebivolol 10 mg tablet 10 mg PO QPM tab 02/18/19 05/01/21 History nitroglycerin 0.4 mg sublingual 0.4 mg SL Q5M PRN #25 tab 02/18/19 05/01/21 History tablet ketoconazole 2 % shampoo 1 applic TOPICAL DAILY PRN ml 01/01/20 05/01/21 History pantoprazole 40 mg tablet,delayed 40 mg PO QAM 02/10/20 05/01/21 History release atorvastatin 40 mg tablet (Lipitor) 40 mg PO QPM 05/13/20 05/01/21 History fluticasone propionate 50 1 sprays INTNAS BID PRN 05/13/20 05/01/21 History mcg/actuation nasal spray,suspension (Flonase Allergy Relief) valsartan 40 mg tablet 40 mg PO QAM tab 06/01/20 05/01/21 History famotidine 20 mg tablet (Acid 20 mg PO QAM PRN 08/16/20 05/01/21 History Pizza Maker (famotidine)) bumetanide 1 mg tablet 2 mg PO QAM 08/23/20 05/01/21 History levothyroxine 150 mcg tablet 150 mcg PO QAM 08/23/20 05/01/21 History pramipexole 0.25 mg tablet 0.25 mg PO HS 08/23/20 05/01/21 History febuxostat 40 mg tablet 40 mg PO QAM 10/05/20 05/01/21 History melatonin 5 mg capsule 10 mg PO QPM PRN cap 12/06/20 05/01/21 History apixaban 2.5 mg tablet (Eliquis) 2.5 mg PO BID 02/01/21 05/01/21 History calcitriol 0.25 mcg capsule 0.25 mcg PO QAM 02/01/21 05/01/21 History colchicine 0.6 mg tablet 0.6 mg PO BID 02/02/21 05/01/21 History cholecalciferol (vitamin D3) 25 25 mcg PO DAILY 02/06/21 05/01/21 History mcg (1,000 unit) capsule gabapentin 100 mg capsule 100 mg PO TID 05/01/21 05/01/21 History Past Med/Surg History Medical History (Updated 05/02/21 @ 07:54 by Abhishek Prakash MD) Aspiration, chronic pulmonary following with ENT and GI, 07/2020 hospitalization for PNA following EGD suspected aspiration Asthma controlled per pt, rescue inhaler use last several mos ago Atrial fibrillation dx 2017-on anticoagulation-follow with [facility] Breast cancer 2005- left mastectomy+ chemo and XRT with recurrence of breast CA to RT 4th & 5th ribs (oral/injectable medication) Left upper extremity restriction per pt CAD (coronary artery disease) 2 stents-LAD and D1 HORACE, July 2015. follows with [facility]. Carotid artery stenosis, asymptomatic 70-79% stenosis of right ICA Chronic anticoagulation Chronic cough resolved per pt Chronic diastolic (congestive) heart failure Follows with [facility], stable per note and pt-chronically sleeps in recliner Chronic kidney disease, stage 4 (severe) follows with Dr. 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, pt states is on oral and injectable tx and following with PCP Sleep apnea no current device use Urinary leakage Surgical History History of appendectomy History of breast biopsy History of cardiac cath 2016 -2 stents-follows with [facility] History of carpal tunnel release of both wrists History of colonoscopy History of heart artery stent X 2 (2017) History of left mastectomy pt reports LUE restriction History of tonsillectomy and adenoidectomy History of total abdominal hysterectomy and bilateral salpingo-oophorectomy Family History Father Myocardial infarction Heart disease Mother Hypertension Other No family history of adverse response to anesthesia No family history of bleeding disorder Social History Smoking Status: Never smoker Second Hand Exposure: No; Do You Dip or Chew Tobacco: No; Hx Alcohol Use: No Hx Substance Use: No Preferred Language: Indonesian Communication Ability: Effective Janitorial Supervisor Required: No Beliefs That Will Affect Care: None marital status: / Current Living Situation: Alone current occupational status: retired 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 in [place]) Feels Safe at Home: Yes Safety Concerns: Feels Safe At This Time Assistive Devices: Walker Review of Systems Review of Systems: All systems reviewed & are unremarkable except as noted in HPI & below Constitutional: no fever, no chills and no malaise Respiratory: + cough and + dyspnea Cardiovascular: no chest pain, no palpitations and no edema Gastrointestinal: no abdominal pain, no constipation and no diarrhea/loose stools Genitourinary: no dysuria and no hematuria Physical Exam Constitutional: WD/WN, vitals as above Eyes: PERRL, conjunctivae normal, anicteric sclerae ENMT: external ear and nose normal, oropharynx normal Neck: normal visual inspection Respiratory: diffuse expiratory wheezing, also some upper airway sounds. Bibasilar crackles Cardiovascular: RRR, no murmur, no edema Gastrointestinal (Abdomen): normal bowel sounds, soft, nontender, no hepatosplenomegaly Musculoskeletal: no cyanosis or clubbing, extremities motor strength 5/5 Skin: no rashes, warm and dry Neurologic: AAOx3, normal speech. Bilateral UE, LE, and face without focal deficits Psychiatric: A+Ox3, euthymic affect Results & Data Results & Data ([facility]) Vital Signs (Past 12 Hours) Vital Signs Temp Pulse Pulse Resp BP BP Pulse Ox 05/01/21 19:33 79 20 138/61 97 05/01/21 18:32 36.6 C 80 80 23 130/61 97 05/01/21 17:49 80 18 119/58 L 95 Code Status & VTE Plan VTE Prophylaxis Plan VTE Prophylaxis will be ordered: Yes Supervising Physician Co-Signing Physician Notes Attending addendum: I have physically seen this patient, have supervised the medical residents activities, and agree with the H&P unless as otherwise noted. Assessment and Plan: FLORENCIA on CKD- Creatinine 4.51 upon admission, with base 2.36 Potassium 5.2, without signs of ectopy on monitor Hold Bumex Placed on NSS, and repeat laboratories in a.m. Consult nephrology Status post AV fistula placement 02/19 Pneumonia with hypoxia- Presentation suggest atypical infection, with negative COVID-19 testing Test for Legionella, mycoplasma and chlamydia Empiric Zosyn and IV azithromycin Remaining orders and notations as noted Resident Activity Tracking Resident Involvement: Resident Care Provided Care Provided: Adult Hospital Medicine (1) Pneumonia Laterality: right Lung location: lower lobe of lung Pneumonia type: due to unspecified organism Qualified Code(s): J18.9 - Pneumonia, unspecified organism
[2021-05-01] MEDS ORDERED: HYDROcodone/HOMATROPINE SYRUP 5MG/1.5MG 5ML UDP PO PRN (19:58)
[2021-05-01] MEDS ORDERED: PIPERACILLIN/TAZOBACTAM 4.5 GM in DEXTROSE 5% 100 ML IV SCH (20:54)
[2021-05-01] MEDS ORDERED: CARBOHYDRATES FOR HYPOGLYCEMIA PO PRN (20:54)
[2021-05-01] MEDS ORDERED: GLUCAGON FOR INJ 1 MG VIAL SQ PRN (20:54)
[2021-05-01] MEDS ORDERED: GLUCOSE 10 TABS/TUBE PO PRN (20:54)
[2021-05-01] MEDS ORDERED: GLUCOSE 40% GEL 15 GM TUBE PO PRN (20:54)
[2021-05-01] MEDS ORDERED: PIPERACILL/TAZOBAC CONSULT ACTIVE PRN (20:54)
[2021-05-01] MEDS ORDERED: DEXTROSE 50% 50 ML SYRINGE IV PRN (20:54)
[2021-05-01] MEDS ORDERED: ACETAMINOPHEN 325 MG TAB PO PRN (20:54)
[2021-05-01] MEDS ORDERED: APIXABAN 5 MG TABLET PO SCH (21:00)
[2021-05-01] MEDS ORDERED: MELATONIN 3 MG TAB PO PRN (21:16)
[2021-05-01] MEDS: METOPROLOL TARTRATE 50 MG TAB PO SCH (22:44)
[2021-05-01] MEDS: PRAMIPEXOLE DIHYDROCHLO 0.25 MG TAB PO SCH (22:44)
[2021-05-01] MEDS: GABAPENTIN 100 MG CAP PO SCH (22:45)
[2021-05-01] MEDS: CLOPIDOGREL BISULFATE 75 MG TAB PO SCH (22:45)
[2021-05-01] MEDS: DOCUSATE SODIUM 100 MG CAP PO SCH (22:45)
[2021-05-01] MEDS: ATORVASTATIN 40 MG TAB PO SCH (22:45)
[2021-05-01] MEDS ORDERED: ALBUTEROL 0.083% NEBU SOLN 3 ML VIAL NEB PRN (22:45)
[2021-05-01] MEDS: FLUTICASONE/VILANTEROL 200/25MCG 14 PUFFS/INHALER INH SCH (22:45)
[2021-05-01] MEDS: INSULIN GLARGINE SOLOSTAR 100 UNITS/ML 3 ML PEN SC SCH (22:46)
[2021-05-01] MEDS: INSULIN ASPART PER UNIT SC SCH (22:46)
[2021-05-01] MEDS: AZITHROMYCIN 500 MG in DEXTROSE 5% 250 ML IV SCH (23:28)
--- NOTE | 2021-05-02 01:03 | Emergency Department Note ---
History of Present Illness General Chief Complaint: Abnormal Labs/Diagnostic Testing Stated Complaint: COUGH, CREATININE HIGH, DIABETIC, SOB, WEAKNESS Time Seen by Provider: 05/01/21 17:55 History of Present Illness Provider Complaint: shortness of breath and cough Onset (ago): day(s) (1) Severity: moderate Consistency/Duration: + constant Current Pain Intensity: 1 Relieved By: + nothing Exacerbated By: + coughing Known history of: congestive heart failure and recurrent pneumonia Associated symptoms: + cough; no wheezing, no sputum production, no orthopnea, no lower extremity pain, no polyuria, no polydipsia, no paresthesias, no palpitations, no hemoptysis, no diaphoresis, no syncope or no abdominal pain HPI Narrative: Bnyezfrw-zs-enr at bedside. Oyvxsiwt-bh-kjn states that the patient's cough became suddenly worse today. She reports she gained approximately 16 pounds last week. Increasing weakness. Puspapha-sz-ihx states that patient had blood work done and CAT scans done prior to arrival and she was instructed to come to the emergency department. Home Medications Medication Instructions Recorded Confirmed Type albuterol sulfate 1.25 mg/3 mL 1.25 mg INH Q6H PRN #90 ml 12/02/17 05/01/21 Rx solution for nebulization clopidogrel 75 mg tablet 75 mg PO QPM #90 tab 12/11/18 05/01/21 History fluticasone 232 mcg-salmeterol 14 1 puffs INHALATION QPM #1 ea 12/11/18 05/01/21 History mcg/actuation breath activated powdr multivitamin (Multiple Vitamins) 1 tab PO QAM 12/11/18 05/01/21 History albuterol sulfate 90 mcg/actuation 2 puffs INHALATION Q4H PRN #1 gm 02/18/19 05/01/21 History aerosol inhaler coenzyme Q10 100 mg capsule 100 mg PO QAM cap 02/18/19 05/01/21 History denosumab 120 mg/1.7 mL (70 mg/mL) 120 mg SUBCUT MONTHLY ml 02/18/19 05/01/21 History subcutaneous solution docusate sodium 100 mg capsule 100 mg PO HS cap 02/18/19 05/01/21 History exemestane 25 mg tablet 25 mg PO QAM tab 02/18/19 05/01/21 History insulin aspart U-100 100 unit/mL See Rx Instructions SUBCUT 02/18/19 05/01/21 History subcutaneous solution .COMPLEX ml isosorbide mononitrate 120 mg 120 mg PO QAM #90 tab 02/18/19 05/01/21 History tablet,extended release 24 hr nebivolol 10 mg tablet 10 mg PO QPM tab 02/18/19 05/01/21 History nitroglycerin 0.4 mg sublingual 0.4 mg SL Q5M PRN #25 tab 02/18/19 05/01/21 History tablet ketoconazole 2 % shampoo 1 applic TOPICAL DAILY PRN ml 01/01/20 05/01/21 History pantoprazole 40 mg tablet,delayed 40 mg PO QAM 02/10/20 05/01/21 History release atorvastatin 40 mg tablet (Lipitor) 40 mg PO QPM 05/13/20 05/01/21 History fluticasone propionate 50 1 sprays INTNAS BID PRN 05/13/20 05/01/21 History mcg/actuation nasal spray,suspension (Flonase Allergy Relief) valsartan 40 mg tablet 40 mg PO QAM tab 06/01/20 05/01/21 History famotidine 20 mg tablet (Acid 20 mg PO QAM PRN 08/16/20 05/01/21 History Regulatory Internship (famotidine)) bumetanide 1 mg tablet 2 mg PO QAM 08/23/20 05/01/21 History levothyroxine 150 mcg tablet 150 mcg PO QAM 08/23/20 05/01/21 History pramipexole 0.25 mg tablet 0.25 mg PO HS 08/23/20 05/01/21 History febuxostat 40 mg tablet 40 mg PO QAM 10/05/20 05/01/21 History melatonin 5 mg capsule 10 mg PO QPM PRN cap 12/06/20 05/01/21 History apixaban 2.5 mg tablet (Eliquis) 2.5 mg PO BID 02/01/21 05/01/21 History calcitriol 0.25 mcg capsule 0.25 mcg PO QAM 02/01/21 05/01/21 History colchicine 0.6 mg tablet 0.6 mg PO BID 02/02/21 05/01/21 History cholecalciferol (vitamin D3) 25 25 mcg PO DAILY 02/06/21 05/01/21 History mcg (1,000 unit) capsule gabapentin 100 mg capsule 100 mg PO TID 05/01/21 05/01/21 History Allergies Allergy/AdvReac Type Severity Reaction Status Date / Time cat dander Allergy Intermediate itching Verified 05/01/21 18:44 eyes, blisters pseudoephedrine AdvReac Intermediate Hallucinati Verified 05/01/21 18:44 ons Past Med/Surg History Medical History Aspiration, chronic pulmonary following with ENT and GI, 07/2020 hospitalization for PNA following EGD suspected aspiration Asthma controlled per pt, rescue inhaler use last several mos ago Atrial fibrillation dx 2016-on anticoagulation-follow with [facility] Breast cancer 2005- left mastectomy+ chemo and XRT with recurrence of breast CA to RT 4th & 5th ribs (oral/injectable medication) Left upper extremity restriction per pt CAD (coronary artery disease) 2 stents-LAD and D1 HORACE, July 2015. follows with [facility]. Carotid artery stenosis, asymptomatic 70-79% stenosis of right ICA Chronic anticoagulation Chronic cough resolved per pt Chronic diastolic (congestive) heart failure Follows with [facility], stable per note and pt-chronically sleeps in recliner Chronic kidney disease, stage 4 (severe) follows with Dr. 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, pt states is on oral and injectable tx and following with PCP Sleep apnea no current device use Urinary leakage Surgical History History of appendectomy History of breast biopsy History of cardiac cath 2017 -2 stents-follows with [facility] History of carpal tunnel release of both wrists History of colonoscopy History of heart artery stent X 2 (2016) History of left mastectomy pt reports LUE restriction History of tonsillectomy and adenoidectomy History of total abdominal hysterectomy and bilateral salpingo-oophorectomy Family History Father Myocardial infarction Heart disease Mother Hypertension Other No family history of adverse response to anesthesia No family history of bleeding disorder Social History Smoking Status: Never smoker Second Hand Exposure: No; Do You Dip or Chew Tobacco: No; Hx Alcohol Use: No Hx Substance Use: No Preferred Language: Kazakh Communication Ability: Effective 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 Beliefs That Will Affect Care: None marital status: / Current Living Situation: Alone current occupational status: retired 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 How many Children do You have Comment: 4 sons - one suffered a broken neck during wrestling practice, became quadraplegic and 6 years later Other Information That Helps Us Care for You: No other: One son is MD ([facility] in [place]) Feels Safe at Home: Yes Safety Concerns: Feels Safe At This Time Assistive Devices: Cane and Glasses Review of Systems A total of 10 systems reviewed and were otherwise negative Physical Exam Vital Signs: Vital Signs - 24 hr 05/01/21 17:49 05/01/21 18:32 05/01/21 19:33 Temperature 36.6 C Temperature Source Oral Pulse Rate 80 80 Pulse Rate [Apical ] 80 79 Pulse Rhythm Regular Pulse Strength Normal Respiratory Rate 18 23 20 Respiratory Effort / Characteristics Non-Labored Sponta neous Non-Labored Respiratory Depth Normal Normal Respiratory Patter n Regular Regular Blood Pressure 119/58 L Blood Pressure [Ri ght Arm] 130/61 138/61 Blood Pressure Stephani n 78 Blood Pressure Stephani n [Right Arm] 84 86 Blood Pressure Pos ition Sitting Pulse Oximetry 95 97 97 Oxygen Delivery Me thod Room Air Room Air Sepsis Recent Feve r Within 48 Hours No Sepsis New/Unexpla ined Change in Men rome Status No Sepsis Action Take n by Nursing No Action Required Physical Exam: Physical Exam GENERAL: Patient coughing repeatedly. HENT: Exam performed. -Head: Normocephalic and atraumatic. -Right Ear: External ear normal. No mastoid tenderness. -Left Ear: External ear normal. No mastoid tenderness. -Mouth/Throat: The oropharynx is clear and moist. No trismus in the jaw. No dental abscesses or uvula swelling. No oropharyngeal exudate or tonsillar abscesses. EYES: Conjunctivae and EOM are normal. Pupils are equal, round, and reactive to light. Right eye exhibits no discharge. Left eye exhibits no discharge. No scleral icterus. NECK: Normal range of motion. Neck supple. No JVD present. No spinous process tenderness present. No carotid bruit present. No rigidity. No tracheal deviation and normal range of motion present. No Brudzinski's sign and no Kernig's sign noted. CV: Normal rate, regular rhythm, normal heart sounds and intact distal pulses. There is no peripheral edema. Palpable radial pulses bue. PULM/CHEST: Rhonchi bilaterally. ABD: The abdomen is soft. Bowel sounds are normal. She has no distension. No mass is present. There is no tenderness. There is no rebound, no guarding, no Potter's sign and no tenderness at McBurney's point. Rovsig negative MUSC/SKEL: Normal range of motion. There is no peripheral edema, tenderness or deformity. LYMPH: No cervical adenopathy. NEURO: She is alert and oriented to person, place, and time. She has normal strength. No cranial nerve deficit or sensory deficit. Coordination and gait normal. GCS eye subscore is 4. GCS verbal subscore is 5. GCS motor subscore is 6. Cerebellar tests wnl. SKIN: Skin is warm and dry. She is not diaphoretic. PSYCH: She has a normal mood and affect. Behavior is normal. Judgment and thought content normal. Course Course 1754: The patient was evaluated in room A4. A complete history and physical exam was performed Cardiac monitoring: An order was placed for continuous cardiac monitoring. The monitor shows a rate of 80 with sinus rhythm EMR reviewed. Patient had blood work done today which showed a white blood cell count 9. Hemoglobin 11.3. Creatinine 4.48 from the patient's baseline of about 2.5. CT imaging done outpatient showed no evidence of progressive metastatic disease however there are scattered tree-in-bud airspace opacities in both lungs greatest in the right lung base and likely represents infectious/inflammatory basis. Given the patient's chronic history of aspiration and the CT findings thought that the patient is suffering from aspiration pneumonia. Patient will be given albuterol inhaler, Hycodan, and treated with Zosyn for the aspiration pneumonia. In the patient's FLORENCIA the patient will be admitted to the [facility] team. The [id number] at bedside is in agreement for admission. Muopujof-kz-gyb reports that the patient did have a fistula placed however they have not access that as they are still determining when and if the patient will need hemodialysis. Administered Medications Apixaban (Apixaban 5 Mg Tablet) 2.5 mg PO BID MITA Stop: 05/31/21 20:59 Last Admin: 05/01/21 23:46 Dose: 2.5 mg Documented by: [id number] Atorvastatin Calcium (Atorvastatin 40 Mg Tab) 40 mg PO QPM MITA Stop: 05/31/21 20:59 Last Admin: 05/01/21 22:45 Dose: 40 mg Documented by: [id number] Clopidogrel Bisulfate (Clopidogrel Bisulfate 75 Mg Tab) 75 mg PO QPM MITA Stop: 05/31/21 20:59 Last Admin: 05/01/21 22:45 Dose: 75 mg Documented by: [id number] Docusate Sodium (Docusate Sodium 100 Mg Cap) 100 mg PO HS MITA Stop: 05/31/21 20:59 Last Admin: 05/01/21 22:45 Dose: 100 mg Documented by: [id number] Fluticasone/Vilanterol (Fluticasone/Vilanterol 200/25mcg 14 Puffs/Inhaler) 1 puffs INH QPM MITA Stop: 05/31/21 20:59 Last Admin: 05/01/21 22:45 Dose: 1 puffs Documented by: [id number] Gabapentin (Gabapentin 100 Mg Cap) 100 mg PO TID MITA Stop: 05/31/21 20:59 Last Admin: 05/01/21 22:45 Dose: 100 mg Documented by: [id number] Azithromycin 500 mg/ Dextrose 255 mls @ 125 mls/hr IV Q24H MITA Stop: 05/08/21 21:59 Last Admin: 05/01/21 23:28 Dose: 125 mls/hr Documented by: [id number] Insulin Aspart (Insulin Aspart Per Unit) 0 units SC ACHS MITA Stop: 05/31/21 20:59 Last Admin: 05/01/21 22:46 Dose: Not Given Documented by: [id number] Cosigned by: [id number] Insulin Glargine (Insulin Glargine Solostar 100 Units/Ml 3 Ml Pen) 12 units SC BID MITA Stop: 05/31/21 20:59 Last Admin: 05/01/21 22:46 Dose: 12 units Documented by: [id number] Cosigned by: [id number] Metoprolol Tartrate (Metoprolol Tartrate 50 Mg Tab) 50 mg PO BID [facility] Stop: 05/31/21 20:59 Last Admin: 05/01/21 22:44 Dose: 50 mg Documented by: [id number] Miscellaneous (Exemestane 25 Mg - Order Awaiting Action) 1 ea N/A QS MITA Stop: 06/01/21 00:00 Last Admin: 05/02/21 00:50 Dose: Not Given Documented by: [id number] Pramipexole Dihydrochloride (Pramipexole Dihydrochlo 0.25 Mg Tab) 0.25 mg PO [facility] Stop: 05/31/21 20:59 Last Admin: 05/01/21 22:44 Dose: 0.25 mg Documented by: [id number] Discontinued Medications Albuterol (Albuterol Hfa 8 Gm Inhaler) 2 puffs INH NOW ONE Stop: 05/01/21 18:10 Last Admin: 05/01/21 18:19 Dose: 2 puffs Documented by: [id number] Benzonatate (Benzonatate 100 Mg Capsule) 100 mg PO NOW ONE Stop: 05/01/21 18:45 Last Admin: 05/01/21 18:57 Dose: 100 mg Documented by: [id number] Guaifenesin (Guaifenesin Sugar Free 100 Mg/5 Ml Udc) 100 mg PO NOW STA Stop: 05/01/21 18:47 Last Admin: 05/01/21 18:57 Dose: 100 mg Documented by: [id number] Hydrocodone Bit/Homatropine Methylb (Hydrocodone/Homatropine Syrup 5mg/1.5mg 5ml Udp) 5 ml PO NOW STA Stop: 05/01/21 18:10 Last Admin: 05/01/21 18:20 Dose: 5 ml Documented by: [id number] Piperacillin Sod/Tazobactam Sod (Zosyn) 4.5 gm in 120 mls @ 240 mls/hr IV NOW ONE Stop: 05/01/21 18:36 Last Infusion: 05/01/21 19:33 Dose: 0 mls/hr Documented by: [id number] Admin: 05/01/21 18:31 Dose: 240 mls/hr Documented by: [id number] Sodium Chloride (Nss 1000ml) 500 mls @ 999 mls/hr IV .Q31M ONE Stop: 05/01/21 20:09 Last Infusion: 05/01/21 22:56 Dose: 0 mls/hr Documented by: [id number] Admin: 05/01/21 20:15 Dose: 999 mls/hr Documented by: [id number] Methylprednisolone (Methylprednisolone 40 Mg/Ml Vial) 40 mg IV NOW STA Stop: 05/01/21 19:41 Last Admin: 05/01/21 20:15 Dose: 40 mg Documented by: [id number] Medical Decision Making Laboratory Data Result diagrams: 05/01/21 18:42 05/01/21 18:42 Lab Results 05/01/21 05/01/21 05/01/21 Range/Units 18:42 18:42 18:42 WBC 11.16 H (4.8-10.8) K/uL RBC 3.97 L (4.2-5.4) M/uL Hgb 11.0 L (12.0-16.0) g/dL Hct 35.8 L (37-47) % MCV 90.2 (80-100) fL MCH 27.7 (25-34) pg MCHC 30.7 L (32-36) g/dL RDW Std Deviation 58.4 H (36.4-46.3) fL RDW Coeff of Oj 18.1 H (11.5-14.5) % Plt Count 184 (130-400) K/uL MPV 11.0 H (7.4-10.4) fL Immature Gran % (Auto) 0.1 % Neut % (Auto) 74.2 % Lymph % (Auto) 16.1 % Desha % (Auto) 7.6 % Eos % (Auto) 1.6 % Baso % (Auto) 0.4 % Neut # (Auto) 8.28 H (1.4-6.5) K/uL Lymph # (Auto) 1.80 (1.2-3.4) K/uL Desha # (Auto) 0.85 H (0.11-0.59) K/uL Eos # (Auto) 0.18 (0-0.5) K/uL Baso # (Auto) 0.04 (0-0.2) K/uL Immature Gran # (Auto) 0.01 (0.00-0.02) K/uL PT 12.8 H (9.0-12.0) Seconds INR 1.3 H (0.9-1.1) APTT 35.2 H (21.0-31.0) Seconds PTT Ratio 1.3 Sodium 135 L (136-145) mmol/L Potassium 5.2 H (3.5-5.1) mmol/L Chloride 98 (98-107) mmol/L Carbon Dioxide 25 (21-32) mmol/L Anion Gap 12 H (3-11) BUN 82 H (6-23) mg/dl Creatinine 4.51 H* (0.6-1.2) mg/dl Est Cr Clr Drug Dosing Not Reportable Est GFR ( Amer) 9.7 ml/min Est GFR (Non-Af Amer) 8.4 ml/min BUN/Creatinine Ratio 18.2 (10-20) Glucose 106 H (70-99(Fasting)) mg/dl Calcium 9.0 (8.5-10.1) mg/dl Troponin I 0.04 (0-0.04) ng/ml B-Natriuretic Peptide (0-100) pg/ml Lipase 74 (11-82) U/L Procalcitonin (0-0.5) ng/ml SARS-CoV-2, RNA, NAAT (NEGATIVE) 05/01/21 05/01/21 05/01/21 Range/Units 18:42 18:42 18:42 WBC (4.8-10.8) K/uL RBC (4.2-5.4) M/uL Hgb (12.0-16.0) g/dL Hct (37-47) % MCV (80-100) fL MCH (25-34) pg MCHC (32-36) g/dL RDW Std Deviation (36.4-46.3) fL RDW Coeff of Oj (11.5-14.5) % Plt Count (130-400) K/uL MPV (7.4-10.4) fL Immature Gran % (Auto) % Neut % (Auto) % Lymph % (Auto) % Desha % (Auto) % Eos % (Auto) % Baso % (Auto) % Neut # (Auto) (1.4-6.5) K/uL Lymph # (Auto) (1.2-3.4) K/uL Desha # (Auto) (0.11-0.59) K/uL Eos # (Auto) (0-0.5) K/uL Baso # (Auto) (0-0.2) K/uL Immature Gran # (Auto) (0.00-0.02) K/uL PT (9.0-12.0) Seconds INR (0.9-1.1) APTT (21.0-31.0) Seconds PTT Ratio Sodium (136-145) mmol/L Potassium (3.5-5.1) mmol/L Chloride (98-107) mmol/L Carbon Dioxide (21-32) mmol/L Anion Gap (3-11) BUN (6-23) mg/dl Creatinine (0.6-1.2) mg/dl Est Cr Clr Drug Dosing Est GFR ( Amer) ml/min Est GFR (Non-Af Amer) ml/min BUN/Creatinine Ratio (10-20) Glucose (70-99(Fasting)) mg/dl Calcium (8.5-10.1) mg/dl Troponin I (0-0.04) ng/ml B-Natriuretic Peptide 320 H (0-100) pg/ml Lipase (11-82) U/L Procalcitonin 0.13 (0-0.5) ng/ml SARS-CoV-2, RNA, NAAT NEGATIVE (NEGATIVE) Imaging Data Radiologist's Impression: Chest X-Ray 05/01/21 17:57 XR chest 1V portable HISTORY: Atypical Chest Pain COMPARISON: Chest CT 05/01/2021. FINDINGS: No pneumothorax. No pleural fusions. The heart remains mildly enlarged. No new focal lung consolidations identified. No evidence for pulmonary edema. Right subclavian Port-A-Cath terminates in the proximal SVC. This remains unchanged. Reticulonodular interstitial thickening is also unchanged. This may be chronic. IMPRESSION: 1. No change in the chronic reticulonodular interstitial thickening. 2. No new focal lung consolidations. ACT 112: Negative or not required by law. Electronically signed by: Lloyd Aaron M.D. 05/01/2021 6:18 PM ECG Data Interpretation: Junctional rhythm with a ventricular rate of 80. QRS and QTc intervals within normal limits. No ST elevation or ST depression. MDM Narrative The patient was evaluated in room A4. A complete history and physical exam was performed Cardiac monitoring: An order was placed for continuous cardiac monitoring. The monitor shows a rate of 80 with sinus rhythm EMR reviewed. Patient had blood work done today which showed a white blood cell count 9. Hemoglobin 11.3. Creatinine 4.48 from the patient's baseline of about 2.5. CT imaging done outpatient showed no evidence of progressive metastatic disease however there are scattered tree-in-bud airspace opacities in both lungs greatest in the right lung base and likely represents infectious/inflammatory basis. Given the patient's chronic history of aspiration and the CT findings thought that the patient is suffering from aspiration pneumonia. Patient will be given albuterol inhaler, Hycodan, and treated with Zosyn for the aspiration pneumonia. In the patient's FLORENCIA the patient will be admitted to the [facility] team. The [id number] at bedside is in agreement for admission. Ddwnefvo-si-alg reports that the patient did have a fistula placed however they have not access that as they are still determining when and if the patient will need hemodialysis. Impression & Plan Acute kidney injury superimposed on CKD, Aspiration, chronic pulmonary Discharge Plan Visit Data Chief Complaint: Abnormal Labs/Diagnostic Testing Stated Complaint: COUGH, CREATININE HIGH, DIABETIC, SOB, WEAKNESS Discharge Problem: Acute kidney injury superimposed on CKD, Aspiration, chronic pulmonary Patient Disposition: Admitted As Inpatient Discharge Instructions Interventions: ED Discharge Assessment Last Done: 05/01/21 20:32
[2021-05-02 02:27] LABS: Influenza A virus by PCR Negative (Negative); Influenza B virus by PCR Negative (Negative)
[2021-05-02] MEDS: PIPERACILLIN/TAZOBACTAM 3.375 GM in DEXTROSE 5% 100 ML IV SCH ×2 (04:53→17:00)
[2021-05-02] MEDS: LEVOTHYROXINE SODIUM 150 MCG TABLET PO SCH (06:08)
[2021-05-02 06:22] LABS: Hematocrit (blood only) 32.2 % (37-47); Hemoglobin 10.1 g/dL (12.0-16.0); Mean Corpuscular Hemoglobin 27.7 pg (25-34); Mean Corpuscular Hgb Conc 31.4 g/dL (32-36); Mean Corpuscular Volume 88.5 fL (80-100); Mean Platelet Volume 10.9 fL (7.4-10.4); Platelet Count 158 K/uL (130-400); RDW Coefficient of Variation 17.8 % (11.5-14.5); RDW Standard Deviation 57.2 fL (36.4-46.3); Red Blood Count 3.64 M/uL (4.2-5.4); White Blood Count 8.23 K/uL (4.8-10.8)
[2021-05-02 06:42] LABS: Albumin Level 3.5 gm/dl (3.4-5.0); Anion Gap 10 (3-11); BUN Creatinine Ratio 19.5 (10-20); Blood Urea Nitrogen 83 mg/dl (6-23); Carbon Dioxide 26 mmol/L (21-32); Chloride 99 mmol/L (98-107); Est GFR (African American) 10.4 ml/min; Glucose 73 mg/dl (70-99(Fasting)); Phosphorus 4.8 mg/dl (2.5-4.9); Potassium 4.5 mmol/L (3.5-5.1); Sodium 135 mmol/L (136-145)
--- NOTE | 2021-05-02 07:56 | Hospitalist Progress Note ---
Date of Service May 02, 2021 Assessment & Plan (1) Acute kidney injury superimposed on CKD: Plan: 85 yo F Hx CKD IV with a baseline creatinine of 3.2, breast cancer with metastatic lesions to the L-spine, atrial flutter on Eliquis, GERD, chronic diastolic heart failure, CAD, chronic cough admitted for acute renal failure on CKD as well as with worsening cough and suspicion for pneumonia (atypical versus aspiration related). Acute renal failure on CKD/ESRD Baseline creatinine 3.2 Recent increase in Bumex for weight gain Creatinine acutely elevated on admission to 4.51, nonanuric 2/ slightly downtrending to 4.26 EKG: Without peaked T waves, potassium 5.2 on admission normalized to 4.5 Bumex held NSS 500 cc given on admission, repeat BMP pending Nephrology, vascular consulted on admission. Patient with history of placement 01/2021 Patient actually appears relatively volume down with minimal ankle edema. Courage orals at this time, gentle fluids if needed, trend BMP. Appreciate nephro input. (2) Chronic cough: Plan: Cough, post Covid inflammatory versus pneumonia CTC: Scattered tree-in-bud airspace opacities are seen throughout both lungs, greatest in the right lung base. This is increased from 11/23/2020 and likely on a chronic infectious/inflammatory basis. Clinical correlation will be required. No evidence of progressive metastatic disease in chest, abdomen, or pelvis on CT. Small volume of ascites appreciated on CT. 4 mm indeterminate right middle lobe pulmonary nodule seen, new, likely inflammatory, likely require attention at follow-up Pneumonia, hypoxia, acute on chronic cough: Acute worsening of chronic cough which have been present for several months with wheezing Received albuterol, hydrocodone/homatroprine in ER with persistent cough. Concerned admission for atypical pneumonia/aspiration pneumonia/pneumonitis COVID-19 negative, did have a positive test 04/14/2021 as outpatient for which we do not have a record Would be 2.5 weeks out from home test plus a few days assuming true positive, out of Covid viremic phase but could have late inflammatory change, but tree-in-bud pattern also with DDx including infectious Given recent Covid positive and restrictive airway disease we will continue steroids, reasonable to continue methylpred 40 twice daily with goal to narrow to daily prednisone rather than dexamethasone at this time 2/ morning of admission and interview patient is not hypoxic, is satting well on room air. Influenza A/B- Mycoplasma pneumonia pending Speech consulted for concern of aspiration. Recommend easy to chew ID DSI 7, moist to meals avoiding dry/thick/pasty foods. Avoid dry scattered foods. Aspiration/reflux precautions. No ongoing need for speech to follow at this time. Received empiric Zosyn/azithromycin, suspect inflammatory and will defer additional at this time and follow clinically. Low threshold to continue antibiotics with anaerobe coverage if worsened or breathing does not continue to improve with concern for aspiration. Patient with history of extended chronic cough and PFTs showing restrictive disease. Continue fluticasone/Vilanterol inhaler, steroids as above. On PPI and H2 karsten for reflux contribution to this, continue. Patient is not sure if she has been on chlorpheniramine in the past, thinks Tessalon Perles have helped sometimes but not much in the past. Will add Tessalon 3 times daily. Did have improvement in symptoms with gabapentin and remains on 100 mg p.o. 3 times daily, improvement seems to have worn off at this dose. Can consider up titration of this, but would treat acute exacerbation and steroids first and treat to minimal dose due to sedation risk. 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 Converted to metoprolol twice daily while inpatient for formulary ARB held in the setting of FLORENCIA/ARF as above Echo 05/2020: LVEF 60-65%, grade 2 diastolic dysfunction No evidence of fluid overload on CTchest, although some ascites present Bumex held for FLORENCIA/ARF as above (6) Chronic diastolic CHF (congestive heart failure): Plan: As above, appears slightly volume down 05/02 (7) Pneumonia: Plan: Suspect presentation more consistent with post Covid inflammatory, will monitor and restart antibiotics as clinically indicated (8) Atrial flutter with rapid ventricular response: Plan: Atrial flutter Continue Eliquis Continue beta-karsten, nebivolol convert to metoprolol as above - Adequate rate control 05/02/21 (9) Breast cancer: Plan: Breast cancer: History of, follows with Leigh Flores PA-C with Heme/Onc. Known to have metastatic lesion to the L spine, no change in size or new lesions on CTAP today. Continue exemestane. (10) Hypothyroidism: Plan: Hypothyroidism Continue home Synthroid Plan: Code Status: FULL CODE FEN: heart healthy, DM2, low sodium diet DVT ppx: Eliquis 2.5mg BID Dispo: Med/Surg with Telemetry Admission and Anticipated Discharge Date Admission Date: May 01, 2021 Subjective Callusing at the bedside in the morning and again with her [id number] in the afternoon. Feels much better than yesterday with reduction in wheezing, no shortness of breath at rest. Does continue to have a severely exacerbated acute on chronic cough. She notes that she never coughs at night when she is able to sleep, but throughout the day has persistent cough which is worse with hard breathing and speaking. This is been present for many months/greater than a year and is intermittently exacerbated and she has not found any solutions or treatments for this. She is on a Breo inhaler at home. Reports she has seen some pulmonolog ist in the past but does not remember which ones are the names. Has had PFTs in the past which show some restrictive disease. Today she does not have fever, chills, sweats, nausea, vomiting, diarrhea, constipation. She had weight gain recently but feels her legs are not particularly swollen. While not short of breath she does have her speech frequently interrupted with cough. Review of Systems Review of Systems: All systems reviewed & are unremarkable except as noted in Subjective Physical Exam Physical Exam: General: A&Ox3. NAD. Cooperative. Speech frequently interrupted with cough HEENT: Atraumatic, normocephalic. Dual acuity and hearing grossly intact. Pulm: Scattered inspiratory and expiratory wheezes with moderate air movement, difficult to assess forced expiration due to cough, no rales/rhonchi. Symmetrical chest rise. No increase in work of breathing. No respiratory distress. Cardiac: RRR, -mrg. Radial pulses intact and symmetrical. Minimal ankle edema. Abdominal: Nontender, nondistended, soft. BS present. Results & Data Results & Data ([facility]) Vital Signs (Past 12 Hours) Vital Signs Temp Pulse Pulse Pulse Resp BP BP 05/02/21 04:00 36.4 C L 78 18 102/59 L 05/02/21 02:30 79 05/02/21 00:04 36.4 C L 81 18 115/50 L 05/01/21 23:05 36.6 C 80 18 111/57 L 05/01/21 22:30 80 05/01/21 21:30 81 05/01/21 20:01 79 20 118/60 Pulse Ox 05/02/21 04:00 93 05/02/21 02:30 05/02/21 00:04 94 05/01/21 23:05 92 05/01/21 22:30 05/01/21 21:30 05/01/21 20:01 97 PG Care Time/CCT Total # of Minutes Spent Total Time Spent with Patient: Total time spent is greater than 50% in coordination of care (as documented) at patient's floor/unit and/or counseling patient: Coding Level of Care Code 10607 Subseq Hosp Care Lvl 2 Diagnoses Acute kidney injury superimposed on CKD N17.9; N18.9 Diabetes E11.9 GERD (gastroesophageal reflux disease) K21.9 CAD (coronary artery disease) I25.10 Chronic diastolic CHF (congestive heart failure) I50.32 Pneumonia J18.9 Laterality: right Lung location: lower lobe of lung Pneumonia type: due to unspecified organism Atrial flutter with rapid ventricular response I48.92 Breast cancer C50.919 Hypothyroidism E03.9 Hypothyroidism type: unspecified Chronic cough R05 (1) Hypothyroidism Hypothyroidism type: unspecified Qualified Code(s): E03.9 - Hypothyroidism, unspecified (2) Pneumonia Laterality: right Lung location: lower lobe of lung Pneumonia type: due to unspecified organism Qualified Code(s): J18.9 - Pneumonia, unspecified organism
[2021-05-02] MEDS ORDERED: methylPREDNISolone 40 MG in SYRINGE 0 ML IV SCH (08:00)
--- NOTE | 2021-05-02 09:19 | Electrocardiogram Report ---
Test Reason : Blood Pressure : / mmHG Vent. Rate : 080 BPM Atrial Rate : 079 BPM P-R Int : 000 ms QRS Dur : 080 ms QT Int : 398 ms P-R-T Axes : 000 020 147 degrees QTc Int : 459 ms Atrial flutter Low voltage QRS Poor R wave progression, consider anterior ID vs. lead placement vs. LVH Abnormal ECG When compared with ECG of 08-FEB-2021 11:23, Nonspecific T wave abnormality now evident in Anterolateral leads Confirmed by Tl Tipton ([id number]) on 05/02/2021 9:18:57 AM Referred By: REFERRED SELF Confirmed By:Tl Tipton
[2021-05-02] MEDS: methylPREDNISolone 40 MG in SYRINGE 0 ML IV SCH ×2 (10:15→20:33)
[2021-05-02] MEDS: PANTOprazole 40 MG TAB PO SCH (10:16)
[2021-05-02] MEDS: CALCITRIOL 0.25 MCG CAPSULE PO SCH (10:16)
[2021-05-02] MEDS: FAMOTIDINE 20 MG TAB PO SCH (10:16)
[2021-05-02] MEDS: INSULIN GLARGINE SOLOSTAR 100 UNITS/ML 3 ML PEN SC SCH ×2 (10:17→20:40)
[2021-05-02] MEDS: MULTIVITAMIN TAB PO SCH (10:17)
[2021-05-02] MEDS: CHOLECALCIFEROL 1,000 UNITS 25 MCG TAB PO SCH (10:17)
[2021-05-02] MEDS: ISOSORBIDE MONO EXTENDED REL 60 MG TABCR PO SCH (10:17)
[2021-05-02] MEDS: FLUTICASONE PROPIONATE NA SPR 16 GM BTL SCH (10:18)
[2021-05-02] MEDS: GABAPENTIN 100 MG CAP PO SCH ×3 (10:19→20:36)
[2021-05-02] MEDS: METOPROLOL TARTRATE 50 MG TAB PO SCH ×2 (10:19→20:36)
[2021-05-02] MEDS: INSULIN ASPART PER UNIT SC SCH ×4 (10:31→20:41)
--- NOTE | 2021-05-02 11:00 | Ultrasound Report ---
US hemodialysis access HISTORY: 85 years-old Female evaluation of fistula for maturity right upper extremity AV fistula COMPARISON: None TECHNIQUE: Multiple real-time sonographic images of the right upper extremity vascular structures wer e obtained assessing grayscale appearance, color and spectral flow FINDINGS: Patent cephalic vein. A fistula of the right upper extremity appears patent with peak systolic veloci ties measuring up to 230 cm/s with low resistance waveforms at the level of the anastomosis. The basi lic vein measures up to 0.84 cm from the skin surface at the mid upper arm to approximately 0.37 cm a t the antecubital fossa. Basilic vein diameter of 0.77 cm at the level of the mid upper arm measures 0.55 cm transversely at the level of the antecubital fossa. IMPRESSION: Patent right upper extremity AV fistula with requested venous measurements as above. ACT 112: Negative or not required by law. The above report was generated using voice recognition software. It may contain grammatical, syntax o r spelling errors. Electronically signed by: Quintin Burnette M.D. 05/02/2021 10:59 AM
--- NOTE | 2021-05-02 12:33 | Nephrology Consultation ---
Date of Consultation May 02, 2021 Assessment & Plan (1) Acute kidney injury superimposed on CKD: (2) Anemia: (3) Hyperkalemia: (4) Cough: 85 y o F with stage 4 CKD, b/l cr 3.0, admitted with FLORENCIA, cr 4.5, worsening chronic cough. she was on high dose of diuretics recently for weight gain, although her current weight is above her dry weight however clinically she is euvolemic. Her blood pressure is relatively low. Chest x-ray was unremarkable. No lower extremity edema shortness of breath. --agree with holding diuretics at this time, encourage p.o. intake. If blood pressure staying low and respiratory status okay with decreased p.o. intake okay to resume IV fluid. Monitor intake and output -- will check iron study, may need Venofer for or Epogen if hand has adequate iron store. -- no clear uremic symptoms, electrolyte has been acceptable, no indication for renal replacement therapy at this time. Will follow Thank you for allowing me to participate in your patient's care. It was a pleasure to see Emily History of Present Illness Reason for Consultation: FLORENCIA Attending Physician: Abhishek Prakash MD History of Present Illness Mrs. Emily Narvaez is a 85-year-old female with PMH significant for stage 4 CKD, CAD, Afib on Eliquis, GERD, chronic cough admitted with FLORENCIA and worsening cough. Nephrology consult requested for management of FLORENCIA with advanced CKD. EMR records were reviewed during visit. Emily presented to ER with worsening of chronic cough and outpt lab showing FLORENCIA. Has h/o chronic cough, had many w/u over the years. She was recently noted to have high weight gain, gain around more than 10 lb compared to her baseline weight of around 183 lb, and she was advised to take Bumex 1 mg twice a day over last few days. She was also diagnosed with COVID-19 around April 14, was vaccinated and had booster. On admission COVID test was negative. Creatinine 4.5, electrolyte was acceptable. Clinically she is not volume overloaded. Chest x-ray was unremarkable. Blood pressure, volume status was acceptable. Diuretics was discontinued and she was started initially on IV fluid which was stopped this morning. Current weight is around 205 lbs, almost 20 lbs higher than her prior baseline weight. Her p.o. intake has been decent. Stage 4 CKD, b/l cr around 3, secondary to microvascular disease with history of hypertension and diabetes. Had right basilic vein AV fistula by DR. Morris on 01/31/21.Has A fib on anticoagulation with Eliquis. has h/o breast ca in 2005 s/p left mastectomy, RT and chemo. Currently she is mainly bothered by cough. No SOB. Voiding normally. appetite decent. Allergies Allergy/AdvReac Type Severity Reaction Status Date / Time cat dander Allergy Intermediate itching Verified 05/01/21 18:44 eyes, blisters pseudoephedrine AdvReac Intermediate Hallucinati Verified 05/01/21 18:44 ons Home Medications Medication Instructions Recorded Confirmed Type albuterol sulfate 1.25 mg/3 mL 1.25 mg INH Q6H PRN #90 ml 12/02/17 05/01/21 Rx solution for nebulization clopidogrel 75 mg tablet 75 mg PO QPM #90 tab 12/11/18 05/01/21 History fluticasone 232 mcg-salmeterol 14 1 puffs INHALATION QPM #1 ea 12/11/18 05/01/21 History mcg/actuation breath activated powdr multivitamin (Multiple Vitamins) 1 tab PO QAM 12/11/18 05/01/21 History albuterol sulfate 90 mcg/actuation 2 puffs INHALATION Q4H PRN #1 gm 02/18/19 05/01/21 History aerosol inhaler coenzyme Q10 100 mg capsule 100 mg PO QAM cap 02/18/19 05/01/21 History denosumab 120 mg/1.7 mL (70 mg/mL) 120 mg SUBCUT MONTHLY ml 02/18/19 05/01/21 History subcutaneous solution docusate sodium 100 mg capsule 100 mg PO HS cap 02/18/19 05/01/21 History exemestane 25 mg tablet 25 mg PO QAM tab 02/18/19 05/01/21 History insulin aspart U-100 100 unit/mL See Rx Instructions SUBCUT 02/18/19 05/01/21 History subcutaneous solution .COMPLEX ml isosorbide mononitrate 120 mg 120 mg PO QAM #90 tab 02/18/19 05/01/21 History tablet,extended release 24 hr nebivolol 10 mg tablet 10 mg PO QPM tab 02/18/19 05/01/21 History nitroglycerin 0.4 mg sublingual 0.4 mg SL Q5M PRN #25 tab 02/18/19 05/01/21 His tory tablet ketoconazole 2 % shampoo 1 applic TOPICAL DAILY PRN ml 01/01/20 05/01/21 History pantoprazole 40 mg tablet,delayed 40 mg PO QAM 02/10/20 05/01/21 History release atorvastatin 40 mg tablet (Lipitor) 40 mg PO QPM 05/13/20 05/01/21 History fluticasone propionate 50 1 sprays INTNAS BID PRN 05/13/20 05/01/21 History mcg/actuation nasal spray,suspension (Flonase Allergy Relief) valsartan 40 mg tablet 40 mg PO QAM tab 06/01/20 05/01/21 History famotidine 20 mg tablet (Acid 20 mg PO QAM PRN 08/16/20 05/01/21 History Screen Printing Press Operator (famotidine)) bumetanide 1 mg tablet 2 mg PO QAM 08/23/20 05/01/21 History levothyroxine 150 mcg tablet 150 mcg PO QAM 08/23/20 05/01/21 History pramipexole 0.25 mg tablet 0.25 mg PO HS 08/23/20 05/01/21 History febuxostat 40 mg tablet 40 mg PO QAM 10/05/20 05/01/21 History melatonin 5 mg capsule 10 mg PO QPM PRN cap 12/06/20 05/01/21 History apixaban 2.5 mg tablet (Eliquis) 2.5 mg PO BID 02/01/21 05/01/21 History calcitriol 0.25 mcg capsule 0.25 mcg PO QAM 02/01/21 05/01/21 History colchicine 0.6 mg tablet 0.6 mg PO BID 02/02/21 05/01/21 History cholecalciferol (vitamin D3) 25 25 mcg PO DAILY 02/06/21 05/01/21 History mcg (1,000 unit) capsule gabapentin 100 mg capsule 100 mg PO TID 05/01/21 05/01/21 History Patient History Medical History (Updated 05/02/21 @ 07:54 by Abhishek Prakash MD) Aspiration, chronic pulmonary following with ENT and GI, 07/2020 hospitalization for PNA following EGD suspected aspiration Asthma controlled per pt, rescue inhaler use last several mos ago Atrial fibrillation dx 2017-on anticoagulation-follow with [facility] Breast cancer 2005- left mastectomy+ chemo and XRT with recurrence of breast CA to RT 4th & 5th ribs (oral/injectable medication) Left upper extremity restriction per pt CAD (coronary artery disease) 2 stents-LAD and D1 [facility], July 2015. follows with [facility]. Carotid artery stenosis, asymptomatic 70-79% stenosis of right ICA Chronic anticoagulation Chronic cough resolved per pt Chronic diastolic (congestive) heart failure Follows with [facility], stable per note and pt-chronically sleeps in recliner Chronic kidney disease, stage 4 (severe) follows with Dr. 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, pt states is on oral and injectable tx and following with PCP Sleep apnea no current device use Urinary leakage Surgical History History of appendectomy History of breast biopsy History of cardiac cath 2017 -2 stents-follows with [facility] History of carpal tunnel release of both wrists History of colonoscopy History of heart artery stent X 2 (2016) History of left mastectomy pt reports LUE restriction History of tonsillectomy and adenoidectomy History of total abdominal hysterectomy and bilateral salpingo-oophorectomy Family History Father Myocardial infarction Heart disease Mother Hypertension Other No family history of adverse response to anesthesia No family history of bleeding disorder Social History Smoking Status: Never smoker Second Hand Exposure: No; Do You Dip or Chew Tobacco: No; Hx Alcohol Use: No Hx Substance Use: No Preferred Language: Hungarian Communication Ability: Effective Research Geneticist Required: No Beliefs That Will Affect Care: None marital status: / Current Living Situation: Alone current occupational status: retired 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 Physical Exam Constitutional: WD/WN, vitals as above no acute distress Eyes: + anicteric sclerae ENMT: Ears: no hearing impairment Neck: normal visual inspection Respiratory: normal respiratory effort; no respiratory distress Auscultation: lungs clear to auscultation bilaterally Cardiovascular: Rate/Rhythm: regular rate and regular rhythm Heart Sounds: normal S1 and normal S2 Extremities: no edema Skin: no rashes Neurologic: no focal motor deficits and not confused Psychiatric: Orientation: alert and oriented x 3 Results & Data ([facility]) Vital Signs (Past 12 Hours) Vital Signs Temp Pulse Pulse Resp BP Pulse Ox 05/02/21 08:01 36.5 C 76 20 109/64 92 05/02/21 04:00 36.4 C L 78 18 102/59 L 93 05/02/21 02:30 79 PG Care Time/CCT Total # of Minutes Spent Total Time Spent with Patient: Total time spent is greater than 50% in coordination of care (as documented) at patient's floor/unit and/or counseling patient: Coding Level of Care Code 29136 Initial Inpt Care Lvl 3 Diagnoses Acute kidney injury superimposed on CKD N17.9; N18.9 Anemia D64.9 Hyperkalemia E87.5 Cough R05
[2021-05-02] MEDS: PATIENT'S HEIGHT AND/OR WEIGHT NEEDED SCH ×3 (12:39→16:23)
[2021-05-02] MEDS: APIXABAN 2.5 MG TAB PO SCH ×2 (12:40→20:36)
[2021-05-02] MEDS: ATORVASTATIN 40 MG TAB PO SCH (20:33)
[2021-05-02] MEDS: BENZONATATE 100 MG CAPSULE PO SCH (20:34)
[2021-05-02] MEDS: CLOPIDOGREL BISULFATE 75 MG TAB PO SCH (20:35)
[2021-05-02] MEDS: PRAMIPEXOLE DIHYDROCHLO 0.25 MG TAB PO SCH (20:36)
[2021-05-02] MEDS: FLUTICASONE/VILANTEROL 200/25MCG 14 PUFFS/INHALER INH SCH (20:37)
[2021-05-02] MEDS: DOCUSATE SODIUM 100 MG CAP PO SCH (21:23)
[2021-05-02] MEDS: AZITHROMYCIN 500 MG in DEXTROSE 5% 250 ML IV SCH (22:23)
--- NOTE | 2021-05-02 22:46 | Billing Data ---
Date of Service May 02, 2021 Coding Level of Care Code 65599 Initial Inpt Care Lvl 3
[2021-05-03] MEDS: PIPERACILLIN/TAZOBACTAM 3.375 GM in DEXTROSE 5% 100 ML IV SCH ×2 (03:30→17:07)
[2021-05-03] MEDS: LEVOTHYROXINE SODIUM 150 MCG TABLET PO SCH (06:13)
[2021-05-03 06:32] LABS: Appearance Urine Clear (Clear); Bilirubin Urine Negative (Negative); Blood Urine Negative (Negative); Color Urine Yellow; Glucose Urine UA Negative (Negative); Ketones Urine Trace (Negative); Leukocyte Esterase Urine Negative (Negative); Nitrite Urine Negative (Negative); Protein Urine Negative (Negative); Specific Gravity Urine 1.015 (1.000-1.030); Urobilinogen Urine Negative (Negative)
--- NOTE | 2021-05-03 07:54 | Consultation ---
Date of Consultation May 03, 2021 History of Present Illness Attending Physician: Abhishek Prakash MD History of Present Illness No consult needed. USN reviewed. Patient has a basilic vein fistula. She needs to have a transposition before it can be used. If she requires dialysis, she will need a pemcath. Please call if permcath is needed. We will schedule the transposition as an outpatient. Thank you very much for letting us participate in the care of this patient. Allergies Allergy/AdvReac Type Severity Reaction Status Date / Time cat dander Allergy Intermediate itching Verified 05/01/21 18:44 eyes, blisters pseudoephedrine AdvReac Intermediate Hallucinati Verified 05/01/21 18:44 ons hydroxyzine AdvReac hallucinati Verified 05/02/21 17:40 ons Home Medications Medication Instructions Recorded Confirmed Type albuterol sulfate 1.25 mg/3 mL 1.25 mg INH Q6H PRN #90 ml 12/02/17 05/01/21 Rx solution for nebulization clopidogrel 75 mg tablet 75 mg PO QPM #90 tab 12/11/18 05/01/21 History fluticasone 232 mcg-salmeterol 14 1 puffs INHALATION QPM #1 ea 12/11/18 05/01/21 History mcg/actuation breath activated powdr multivitamin (Multiple Vitamins) 1 tab PO QAM 12/11/18 05/01/21 History albuterol sulfate 90 mcg/actuation 2 puffs INHALATION Q4H PRN #1 gm 02/18/19 05/01/21 History aerosol inhaler coenzyme Q10 100 mg capsule 100 mg PO QAM cap 02/18/19 05/01/21 History denosumab 120 mg/1.7 mL (70 mg/mL) 120 mg SUBCUT MONTHLY ml 02/18/19 05/01/21 History subcutaneous solution docusate sodium 100 mg capsule 100 mg PO HS cap 02/18/19 05/01/21 History exemestane 25 mg tablet 25 mg PO QAM tab 02/18/19 05/01/21 History insulin aspart U-100 100 unit/mL See Rx Instructions SUBCUT 02/18/19 05/01/21 History subcutaneous solution .COMPLEX ml isosorbide mononitrate 120 mg 120 mg PO QAM #90 tab 02/18/19 05/01/21 History tablet,extended release 24 hr nebivolol 10 mg tablet 10 mg PO QPM tab 02/18/19 05/01/21 History nitroglycerin 0.4 mg sublingual 0.4 mg SL Q5M PRN #25 tab 02/18/19 05/01/21 History tablet ketoconazole 2 % shampoo 1 applic TOPICAL DAILY PRN ml 01/01/20 05/01/21 History pantoprazole 40 mg tablet,delayed 40 mg PO QAM 02/10/20 05/01/21 History release atorvastatin 40 mg tablet (Lipitor) 40 mg PO QPM 05/13/20 05/01/21 History fluticasone propionate 50 1 sprays INTNAS BID PRN 05/13/20 05/01/21 History mcg/actuation nasal spray,suspension (Flonase Allergy Relief) valsartan 40 mg tablet 40 mg PO QAM tab 06/01/20 05/01/21 History famotidine 20 mg tablet (Acid 20 mg PO QAM PRN 08/16/20 05/01/21 History Fruit And Vegetable Classer (famotidine)) bumetanide 1 mg tablet 2 mg PO QAM 08/23/20 05/01/21 History levothyroxine 150 mcg tablet 150 mcg PO QAM 08/23/20 05/01/21 History pramipexole 0.25 mg tablet 0.25 mg PO HS 08/23/20 05/01/21 History febuxostat 40 mg tablet 40 mg PO QAM 10/05/20 05/01/21 History melatonin 5 mg capsule 10 mg PO QPM PRN cap 12/06/20 05/01/21 History apixaban 2.5 mg tablet (Eliquis) 2.5 mg PO BID 02/01/21 05/01/21 History calcitriol 0.25 mcg capsule 0.25 mcg PO QAM 02/01/21 05/01/21 History colchicine 0.6 mg tablet 0.6 mg PO BID 02/02/21 05/01/21 History cholecalciferol (vitamin D3) 25 25 mcg PO DAILY 02/06/21 05/01/21 History mcg (1,000 unit) capsule gabapentin 100 mg capsule 100 mg PO TID 05/01/21 05/01/21 History Patient History Medical History (Updated 05/02/21 @ 07:54 by Abhishek Prakash MD) Aspiration, chronic pulmonary following with ENT and GI, 07/2020 hospitalization for PNA following EGD suspected aspiration Asthma controlled per pt, rescue inhaler use last several mos ago Atrial fibrillation dx 2017-on anticoagulation-follow with [facility] Breast cancer 2005- left mastectomy+ chemo and XRT with recurrence of breast CA to RT 4th & 5th ribs (oral/injectable medication) Left upper extremity restriction per pt CAD (coronary artery disease) 2 stents-LAD and D1 HORACE, July 2015. follows with [facility]. Carotid artery stenosis, asymptomatic 70-79% stenosis of right ICA Chronic anticoagulation Chronic cough resolved per pt Chronic diastolic (congestive) heart failure Follows with [facility], stable per note and pt-chronically sleeps in recliner Chronic kidney disease, stage 4 (severe) follows with Dr. 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, pt states is on oral and injectable tx and following with PCP Sleep apnea no current device use Urinary leakage Surgical History History of appendectomy History of breast biopsy History of cardiac cath 2017 -2 stents-follows with [facility] History of carpal tunnel release of both wrists History of colonoscopy History of heart artery stent X 2 (2017) History of left mastectomy pt reports LUE restriction History of tonsillectomy and adenoidectomy History of total abdominal hysterectomy and bilateral salpingo-oophorectomy Family History Father Myocardial infarction Heart disease Mother Hypertension Other No family history of adverse response to anesthesia No family history of bleeding disorder Social History Smoking Status: Never smoker Second Hand Exposure: No; Do You Dip or Chew Tobacco: No; Hx Alcohol Use: No Hx Substance Use: No Preferred Language: Wolof Communication Ability: Effective It Help Desk Technician Required: No Beliefs That Will Affect Care: None marital status: / Current Living Situation: Alone current occupational status: retired 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 How many Children do You have Comment: 4 sons - one suffered a broken neck during wrestling practice, became qu adraplegic and 6 years later Other Information That Helps Us Care for You: No other: One son is MD (family practice in [place]) Feels Safe at Home: Yes Safety Concerns: Feels Safe At This Time Assistive Devices: Cane and Glasses Results & Data ([facility]) Vital Signs (Past 12 Hours) Vital Signs Temp Pulse Pulse Resp BP Pulse Ox Pulse Ox 05/03/21 03:15 36.3 C L 80 20 105/64 91 05/02/21 23:19 36.4 C L 78 20 104/54 L 92 05/02/21 22:18 78 05/02/21 20:54 91
[2021-05-03] MEDS: FAMOTIDINE 20 MG TAB PO SCH (08:24)
[2021-05-03] MEDS: methylPREDNISolone 40 MG in SYRINGE 0 ML IV SCH ×2 (08:24→20:41)
[2021-05-03] MEDS: METOPROLOL TARTRATE 50 MG TAB PO SCH ×2 (08:25→20:43)
[2021-05-03] MEDS: GABAPENTIN 100 MG CAP PO SCH ×3 (08:25→20:44)
[2021-05-03] MEDS: APIXABAN 2.5 MG TAB PO SCH ×2 (08:25→20:46)
[2021-05-03] MEDS: CALCITRIOL 0.25 MCG CAPSULE PO SCH (08:25)
[2021-05-03] MEDS: ISOSORBIDE MONO EXTENDED REL 60 MG TABCR PO SCH (08:26)
[2021-05-03] MEDS: MULTIVITAMIN TAB PO SCH (08:26)
[2021-05-03] MEDS: CHOLECALCIFEROL 1,000 UNITS 25 MCG TAB PO SCH (08:26)
[2021-05-03] MEDS: PANTOprazole 40 MG TAB PO SCH (08:26)
[2021-05-03] MEDS: BENZONATATE 100 MG CAPSULE PO SCH ×3 (08:26→20:45)
[2021-05-03] MEDS: EXEMESTANE PO SCH (08:27)
[2021-05-03] MEDS: INSULIN GLARGINE SOLOSTAR 100 UNITS/ML 3 ML PEN SC SCH ×2 (08:27→20:47)
[2021-05-03] MEDS: INSULIN ASPART PER UNIT SC SCH ×4 (08:29→20:43)
[2021-05-03 08:33] LABS: Albumin Level 3.7 gm/dl (3.4-5.0); BUN Creatinine Ratio 20.4 (10-20); Calcium 8.2 mg/dl (8.5-10.1); Creatinine Clr Calc Pharmacy 10.7 ml/min; Est GFR (African American) 9.8 ml/min; Est GFR (Non-African American) 8.5 ml/min; Phosphorus 5.4 mg/dl (2.5-4.9); Potassium 4.9 mmol/L (3.5-5.1)
[2021-05-03 08:36] LABS: Ferritin 32.8 ng/ml (8-388)
[2021-05-03] MEDS ORDERED: FUROSEMIDE 80 MG TAB PO STA (10:11)
[2021-05-03] MEDS: FLUTICASONE PROPIONATE NA SPR 16 GM BTL SCH (10:40)
[2021-05-03] MEDS: IRON SUCROSE 200 MG in 0.9 % SODIUM CHLORIDE 100 ML IV SCH (11:29)
--- NOTE | 2021-05-03 11:45 | Nephrology Progress Note ---
Date of Service May 03, 2021 Assessment & Plan (1) Acute kidney injury superimposed on CKD: (2) Anemia: (3) Hyperkalemia: (4) Cough: Plan: 85 y o F with stage 4 CKD, b/l cr 3.0, admitted with FLORENCIA, cr 4.5, worsening chronic cough. she was on high dose of diuretics recently for weight gain, although her current weight is above her dry weight however clinically she is euvolemic. Her blood pressure is relatively low. Chest x-ray was unremarkable. No lower extremity edema shortness of breath. No significant improvement in renal function, urine output dropped. blood pressure has been acceptable. -- Lasix 80 mg p.o. x1 dose, Monitor intake and output -- Epogen 24592 units x 1 dose, Venofer 20 mg IV daily for total 5 doses. -- if no improvement in renal function, urine output with diuretics, may need to consider tunneled dialysis catheter and start on hemodialysis. Will follow Admission and Anticipated Discharge Date Admission Date: May 01, 2021 Beka Diaz was seen and examined in her room this morning. She has not been feel well since this morning, continues to be bothered by cough but denies any significant shortness of breath. Urine output dropped significantly. Blood pressure has been stable. No improvement in renal function in fact creatinine staying around 4.5 with multiple electrolyte abnormality. Review of Systems Review of Systems: Detail ROS was negative except mentioned above. Physical Exam Constitutional: WD/WN, vitals as above no acute distress Eyes: + anicteric sclerae Neck: normal visual inspection Respiratory: normal respiratory effort; no respiratory distress Auscultation: + rales Cardiovascular: Rate/Rhythm: regular rate and regular rhythm Heart Sounds: normal S1 and normal S2 Extremities: no edema Skin: no rashes Neurologic: no focal motor deficits and not confused Psychiatric: Orientation: alert and oriented x 3 Results & Data ([facility]) Vital Signs (Past 12 Hours) Vital Signs Temp Pulse Resp BP Pulse Ox 05/03/21 11:20 36.2 C L 70 16 138/79 91 05/03/21 07:56 36.3 C L 80 22 136/73 94 05/03/21 03:15 36.3 C L 80 20 105/64 91 PG Care Time/CCT Total # of Minutes Spent Total Time Spent with Patient: Total time spent is greater than 50% in coordination of care (as documented) at patient's floor/unit and/or counseling patient: Coding Level of Care Code 72355 Subseq Hosp Care Lvl 3 Diagnoses Acute kidney injury superimposed on CKD N17.9; N18.9 Anemia D64.9 Hyperkalemia E87.5 Cough R05
--- NOTE | 2021-05-03 13:01 | Hospitalist Progress Note ---
Date of Service May 03, 2021 Assessment & Plan (1) Acute kidney injury superimposed on CKD: Plan: 85 yo F Hx CKD IV with a baseline creatinine of 3.2, breast cancer with metastatic lesions to the L-spine, atrial flutter on Eliquis, GERD, chronic diastolic heart failure, CAD, chronic cough admitted for acute renal failure on CKD as well as with worsening cough and suspicion for pneumonia (atypical versus aspiration related). Acute renal failure on CKD/ESRD Baseline creatinine 3.2 Recent increase in Bumex for weight gain Admitting EKG: Without peaked T waves, potassium 5.2 on admission normalized to 4.5 Creatinine acutely elevated on admission to 4.51, nonanuric 2/ slightly downtrending to 4.26 - 2/2 no improvement; Cr worsened to 4.44, UOP decreased. Na 131, K 4.9 - Nephrology consulted. Lasix 80 x1 follow UOP and Cr. Epo x1 dose, Venofer daily x5 doses, and follow. If not improvement may need to pursue tunneled catheter and HD, follow at this time. Appreciate recs. - Patient with history of fistula placement 01/2021, not able to be used. If HD needed --> place tunneled catheter, reconsult vascular at that time for placement (2) Chronic cough: Plan: Cough, post Covid inflammatory versus pneumonia CTC: Scattered tree-in-bud airspace opacities are seen throughout both lungs, greatest in the right lung base. This is increased from 11/23/2020 and likely on a chronic infectious/inflammatory basis. Clinical correlation will be required. No evidence of progressive metastatic disease in chest, abdomen, or pelvis on CT. Small volume of ascites appreciated on CT. 4 mm indeterminate right middle lobe pulmonary nodule seen, new, likely inflammatory, likely require attention at follow-up Pneumonia, hypoxia, acute on chronic cough: Acute worsening of chronic cough which have been present for several months with wheezing Received albuterol, hydrocodone/homatroprine in ER with persistent cough. Concerned admission for atypical pneumonia/aspiration pneumonia/pneumonitis. Received empiric Zosyn/azithromycin. Suspect inflammatory and will defer additional at this time and follow clinically. Low threshold to continue antibiotics with anaerobe coverage if worsened or breathing does not continue to improve with concern for aspiration. COVID-19 negative, did have a positive test 04/14/2021 as outpatient for which we do not have a record Would be 2.5 weeks out from home test plus a few days assuming true positive, out of Covid viremic phase but could have late inflammatory change, but tree-in-bud pattern also with DDx including infectious Given recent Covid positive and restrictive airway disease we will continue steroids, methylpred 40 twice daily --> daily prednisone rather than dexamethasone at this time Influenza A/B- Mycoplasma pneumonia pending - Remains on room air Speech consulted for concern of aspiration. Recommend easy to chew ID DSI 7, moist to meals avoiding dry/thick/pasty foods. Avoid dry scattered foods. Aspiration/reflux precautions. No ongoing need for speech to follow at this time. trial nectar thick liquids - Patient with history of extended chronic cough and PFTs showing restrictive disease. Continue fluticasone/Vilanterol inhaler, steroids as above. On PPI and H2 karsten for reflux contribution to this, continue. Continue Tessalon Perles. 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 Converted to metoprolol twice daily while inpatient for formulary ARB held in the setting of FLORENCIA/ARF as above Echo 05/2020: LVEF 60-65%, grade 2 diastolic dysfunction No evidence of fluid overload on CTchest, although some ascites present - Diuretics as above (6) Chronic diastolic CHF (congestive heart failure): Plan: As above (7) Pneumonia: Plan: As above (8) Atrial flutter with rapid ventricular response: Plan: Atrial flutter Continue Eliquis Continue beta-karsten, nebivolol convert to metoprolol as above - Adequate rate control 05/02/21 (9) Breast cancer: Plan: Breast cancer: History of, follows with Leigh Flores PA-C with Heme/Onc. Known to have metastatic lesion to the L spine, no change in size or new lesions on CTAP today. Continue exemestane. (10) Hypothyroidism: Plan: Hypothyroidism Continue home Synthroid Plan: Code Status: FULL CODE FEN: heart healthy, DM2, low sodium diet DVT ppx: Eliquis 2.5mg BID Dispo: Med/Surg with Telemetry Admission and Anticipated Discharge Date Admission Date: May 01, 2021 Subjective Seen this morning. Somewhat discouraged by her kidney numbers, otherwise feels okay. Continues to have persistent cough, some difficult with thin liquids/water which will set this off. Cough at night improved. Has not peed much today, decreased urine output. Has had multiple bowel movements frequently, although these are neither hard nor liquid and are generally soft. Denies blood in these. Is not short of breath at time of assessment. Remains on room air. Review of Systems Review of Systems: All systems reviewed & are unremarkable except as noted in Subjective Physical Exam Physical Exam: General: A&Ox3. NAD. Cooperative. Speech frequently interrupted with cough HEENT: Atraumatic, normocephalic. Visual acuity and hearing grossly intact. Pulm: Scattered inspiratory and expiratory wheezes with moderate air movement,no rales/rhonchi. Symmetrical chest rise. No increase in work of breathing. No respiratory distress. Cardiac: RRR, -mrg. Radial pulses intact and symmetrical. Minimal ankle edema. Abdominal: Nontender, nondistended, soft. BS present. Results & Data Results & Data ([facility]) Vital Signs (Past 12 Hours) Vital Signs Temp Pulse Resp BP Pulse Ox 05/03/21 11:20 36.2 C L 70 16 138/79 91 05/03/21 07:56 36.3 C L 80 22 136/73 94 05/03/21 03:15 36.3 C L 80 20 105/64 91 PG Care Time/CCT Total # of Minutes Spent Total Time Spent with Patient: Total time spent is greater than 50% in coordination of care (as documented) at patient's floor/unit and/or counseling patient: Coding Level of Care Code 72765 Subseq Hosp Care Lvl 2 Diagnoses Acute kidney injury superimposed on CKD N17.9; N18.9 Chronic cough R05 Diabetes E11.9 GERD (gastroesophageal reflux disease) K21.9 CAD (coronary artery disease) I25.10 Chronic diastolic CHF (congestive heart failure) I50.32 Pneumonia J18.9 Laterality: right Lung location: lower lobe of lung Pneumonia type: due to unspecified organism Atrial flutter with rapid ventricular response I48.92 Breast cancer C50.919 Hypothyroidism E03.9 Hypothyroidism type: unspecified (1) Hypothyroidism Hypothyroidism type: unspecified Qualified Code(s): E03.9 - Hypothyroidism, unspecified (2) Pneumonia Laterality: right Lung location: lower lobe of lung Pneumonia type: due to unspecified organism Qualified Code(s): J18.9 - Pneumonia, unspecified organism
[2021-05-03] MEDS ORDERED: EPOETIN ALFA 20,000 UNITS/ML VIAL SQ SCH (16:00)
[2021-05-03] MEDS ORDERED: PHARMACY GLYCEMIC MGMT CONSULT PRN (18:51)
[2021-05-03] MEDS: PRAMIPEXOLE DIHYDROCHLO 0.25 MG TAB PO SCH (20:43)
[2021-05-03] MEDS: CLOPIDOGREL BISULFATE 75 MG TAB PO SCH (20:45)
[2021-05-03] MEDS: ATORVASTATIN 40 MG TAB PO SCH (20:45)
[2021-05-03] MEDS: FLUTICASONE/VILANTEROL 200/25MCG 14 PUFFS/INHALER INH SCH (20:47)
[2021-05-03] MEDS: DOCUSATE SODIUM 100 MG CAP PO SCH (20:49)
[2021-05-03] MEDS ORDERED: HEPARIN 100 UNIT/ML 5ML FLUSH FLUSH PRN (23:51)
[2021-05-04] MEDS: INSULIN ASPART PER UNIT SC SCH ×6 (00:25→20:24)
[2021-05-04] MEDS: LEVOTHYROXINE SODIUM 150 MCG TABLET PO SCH (06:25)
[2021-05-04] MEDS: HEPARIN 100 UNIT/ML 5ML FLUSH FLUSH PRN (06:25)
[2021-05-04 07:01] LABS: Hematocrit (blood only) 32.7 % (37-47); Hemoglobin 10.3 g/dL (12.0-16.0); Immature Granulocytes # (auto) 0.01 K/uL (0.00-0.02); Immature Granulocytes % (auto) 0.1 %; Lymphocytes # (auto) 0.66 K/uL (1.2-3.4); Lymphocytes % (auto) 8.8 %; Mean Corpuscular Hemoglobin 27.4 pg (25-34); Mean Corpuscular Hgb Conc 31.5 g/dL (32-36); Mean Platelet Volume 11.2 fL (7.4-10.4); Monocytes # (auto) 0.25 K/uL (0.11-0.59); Monocytes % (auto) 3.3 %; Neutrophils # (auto) 6.57 K/uL (1.4-6.5); Neutrophils % (auto) 87.8 %; Platelet Count 175 K/uL (130-400); RDW Coefficient of Variation 17.9 % (11.5-14.5); RDW Standard Deviation 54.9 fL (36.4-46.3); Red Blood Count 3.76 M/uL (4.2-5.4); White Blood Count 7.49 K/uL (4.8-10.8)
[2021-05-04] MEDS: GABAPENTIN 100 MG CAP PO SCH ×3 (07:46→20:11)
[2021-05-04] MEDS: METOPROLOL TARTRATE 50 MG TAB PO SCH ×3 (07:47→20:16)
[2021-05-04] MEDS: CHOLECALCIFEROL 1,000 UNITS 25 MCG TAB PO SCH (07:48)
[2021-05-04] MEDS: BENZONATATE 100 MG CAPSULE PO SCH ×3 (07:48→20:12)
[2021-05-04] MEDS: CALCITRIOL 0.25 MCG CAPSULE PO SCH (07:49)
[2021-05-04] MEDS: PANTOprazole 40 MG TAB PO SCH (07:49)
[2021-05-04] MEDS: APIXABAN 2.5 MG TAB PO SCH (07:50)
[2021-05-04] MEDS: EXEMESTANE PO SCH (07:50)
[2021-05-04] MEDS: MULTIVITAMIN TAB PO SCH (07:51)
[2021-05-04] MEDS: FAMOTIDINE 20 MG TAB PO SCH (07:51)
[2021-05-04] MEDS: predniSONE 20 MG TAB PO SCH (07:53)
[2021-05-04] MEDS: FLUTICASONE PROPIONATE NA SPR 16 GM BTL SCH (07:53)
[2021-05-04] MEDS: INSULIN GLARGINE SOLOSTAR 100 UNITS/ML 3 ML PEN SC SCH ×2 (07:54→20:24)
[2021-05-04 08:16] LABS: Albumin Level 3.6 gm/dl (3.4-5.0); Calcium 7.5 mg/dl (8.5-10.1); Creatinine Clr Calc Pharmacy 9.4 ml/min; Est GFR (African American) 8.3 ml/min; Est GFR (Non-African American) 7.1 ml/min; Phosphorus 6.5 mg/dl (2.5-4.9); Potassium 5.1 mmol/L (3.5-5.1)
--- NOTE | 2021-05-04 10:31 | Nephrology Progress Note ---
Date of Service May 04, 2021 Assessment & Plan (1) Acute kidney injury superimposed on CKD: (2) Anemia: (3) Hyperkalemia: (4) Cough: Plan: 85 y o F with stage 4 CKD, b/l cr 3.0, admitted with FLORENCIA, cr 4.5, worsening chronic cough. she was on high dose of diuretics recently for weight gain, although her current weight is above her dry weight however clinically she is euvolemic. Her blood pressure is relatively low. Chest x-ray was unremarkable. No lower extremity edema shortness of breath. Progressive worsening of renal function, has Multiple electrolyte abnormality, urine output dropped. blood pressure has been acceptable. --considering progressive worsening of renal function, electrolyte abnormality in decrease urine output, recommended to start on hemodialysis via tunneled dialysis catheter. Patient is agreeable, will consult vascular surgery to place a tunnel catheter and tentatively plan to start on 1st dialysis tomorrow. Case management consult to set up outpatient dialysis at [facility] in [place]. Discussed with her son Asif Narvaez ) who is a family practice physician. Will follow Admission and Anticipated Discharge Date Admission Date: May 01, 2021 Beka Diaz was seen and examined in her room this morning. She continues to be bothered by cough but denies any significant shortness of breath. Urine output has been low despite diuretics. Blood pressure has been stable. Renal function worsened with multiple electrolyte abnormality. Review of Systems Review of Systems: Detail ROS was negative except mentioned above. Physical Exam Constitutional: WD/WN, vitals as above no acute distress Eyes: + anicteric sclerae ENMT: Ears: no hearing impairment Neck: normal visual inspection Respiratory: normal respiratory effort; no respiratory distress Auscultation: + rales Cardiovascular: Rate/Rhythm: regular rate and regular rhythm Heart Sounds: normal S1 and normal S2 Extremities: no edema Skin: no rashes Neurologic: no focal motor deficits and not confused Psychiatric: Orientation: alert and oriented x 3 Results & Data ([facility]) Vital Signs (Past 12 Hours) Vital Signs Temp Pulse Pulse Resp BP Pulse Ox 05/04/21 07:49 37.2 C 75 20 114/73 92 05/04/21 06:58 67 05/04/21 03:29 36.4 C L 63 18 96/58 L 94 05/04/21 01:22 80 20 99/61 L 95 05/03/21 23:27 75 83/50 L 05/03/21 22:38 36.5 C 82 18 90/49 L 95 PG Care Time/CCT Total # of Minutes Spent Total Time Spent with Patient: Total time spent is greater than 50% in coordination of care (as documented) at patient's floor/unit and/or counseling patient: Coding Level of Care Code 99526 Subseq Hosp Care Lvl 3 Diagnoses Acute kidney injury superimposed on CKD N17.9; N18.9 Anemia D64.9 Hyperkalemia E87.5 Cough R05
[2021-05-04] MEDS: IRON SUCROSE 200 MG in 0.9 % SODIUM CHLORIDE 100 ML IV SCH (11:29)
[2021-05-04] MEDS: ISOSORBIDE MONO EXTENDED REL 60 MG TABCR PO SCH (11:32)
--- NOTE | 2021-05-04 11:54 | Pharmacy Report ---
Pharmacy Glycemic Short Note 2 - Date of Service May 04, 2021 - Glycemic Short BSG Results (Last 24 hours): 05/03/21 05/03/21 05/03/21 11:49 16:58 20:03 Glucose POC Glucose 208 H 231 H 239 H 05/04/21 05/04/21 05/04/21 00:08 03:58 06:21 Glucose 152 H POC Glucose 245 H 153 H 05/04/21 07:37 Glucose POC Glucose 150 H OUTPATIENT ANTIDIABETIC REGIMEN: * Lantus 25 units SQ qAM -- recent change (pt taken off of pump d/t frequent hypoglycemia) * Previously on insulin pump: * V-Go Novolog pump * 1.25 units/hr (30 units of basal daily) * 6 units (3 clicks) with breakfast * 4 units (2 clicks) with lunch * 8 units (4 clicks) with dinner * HbA1c: 7.7% (05/01/21) ASSESSMENT: * Ms Narvaez is an 85yo diabetic female admitted 05/01/21 with worsening cough (?pna) and FLORENCIA on CKD. * BSGs have been elevated during admission 2/2 steroids (was on SoluMedrol 40mg IV q12h, now on Prednisone 40mg daily). * Pharmacy consulted this morning to assist with glycemic mgmt. * Novolog parameters were adjusted this morning to provide additional prandial coverage, as this is where steroid-induced hyperglycemia is most pronounced. If this is insufficient in controlling BSGs, may add NPH tomorrow morning. * Adjusting regimen cautiously in the setting of FLORENCIA (SCr 5.14, baseline 3.0). Pt will be more at risk for "insulin stacking". PLAN FOR INPATIENT GLYCEMIC CONTROL: * Hold outpatient oral diabetes medications * Basal insulin * Lantus 15 units SQ BID * Bolus insulin * NovoLog per scale ACHS or Q6hrs while NPO * Goal Range: Low 110 mg/dL - High 140 mg/dL * Correction Factor: 20 mg/dL/unit * Nutritional / Prandial insulin per carb ratio of 1 unit per 5 grams CHO consumed PLAN FOR DISCHARGE: * A1c: 7.7% * This result is likely somewhat unreliable in CKD/ESRD patients d/t interactions between the A1c analyzing technique and high levels of urea in ESRD, reduced RBC life span, iron deficiency anemia, and EPO administration. HbA1c > 7.5% in ESRD patient may overestimate the extent of hyperglycemia in ESRD patients. * Expect that pt may resume home regimen on discharge, as long as she does not report having episodes of hypoglycemia.
--- NOTE | 2021-05-04 15:05 | Communication Note ---
Date of Service: May 04, 2021 This patient has worsening renal function in need of dialysis. PermCath insertion was recommended for dialysis purposes. I have discussed the risks options and benefits of the procedure with the patient. The patient understands the risks options and benefits and agrees to the procedure. This will be placed first thing in the morning tomorrow.
[2021-05-04] MEDS ORDERED: ceFAZolin 2000MG 2,000 MG/15 ML SYR IV ONE (15:06)
--- NOTE | 2021-05-04 16:11 | Hospitalist Progress Note ---
Date of Service May 04, 2021 Assessment & Plan (1) Acute kidney injury superimposed on CKD: Plan: 85 yo F Hx CKD IV with a baseline creatinine of 3.2, breast cancer with metastatic lesions to the L-spine, atrial flutter on Eliquis, GERD, chronic diastolic heart failure, CAD, chronic cough admitted for acute renal failure on CKD as well as with worsening cough and suspicion for pneumonia (atypical versus aspiration related). Acute renal failure on CKD/ESRD Baseline creatinine 3.2 Recent increase in Bumex for weight gain Admitting EKG: Without peaked T waves, potassium 5.2 on admission normalized to 4.5 Creatinine acutely elevated on admission to 4.51, nonanuric Slight initial improvement initially, followed by worsening 2/2 and /3. 2/3 patient with hyponatremia to 128, potassium upper limit of normal at 5.1, and clinically with increasing rales. Maintaining oxygen saturation on room air no shortness of breath at assessment although cough continues Poor urine output. Discussed with nephrology, recommend proceeding to start hemodialysis. N.p.o. @ 0000 pending tunneled dialysis catheter placement, anticipate dialysis tomorrow. Plan of care discussed with family who is in agreement. (2) Chronic cough: Plan: Cough, post Covid inflammatory versus pneumonia CTC: Scattered tree-in-bud airspace opacities are seen throughout both lungs, greatest in the right lung base. This is increased from 11/23/2020 and likely on a chronic infectious/inflammatory basis. Clinical correlation will be required. No evidence of progressive metastatic disease in chest, abdomen, or pelvis on CT. Small volume of ascites appreciated on CT. 4 mm indeterminate right middle lobe pulmonary nodule seen, new, likely inflammatory, likely require attention at follow-up Pneumonia, hypoxia, acute on chronic cough: Acute worsening of chronic cough which have been present for several months with wheezing Concerned admission for atypical pneumonia/aspiration pneumonia/pneumonitis. Received empiric Zosyn/azithromycin. Suspect inflammatory and additional antibiotics deferred. Low threshold to continue antibiotics with anaerobe coverage if worsened or breathing does not continue to improve with concern for aspiration. No leukocytosis 2/3 COVID-19 negative, did have a positive test 04/14/2021 as outpatient for which we do not have a record Steroids converted to daily prednisone 40 mg Influenza A/B- Mycoplasma pneumonia pending - Remains on room air Diet texture easy to chew IDDSI 7, moist to meals avoiding dry/thick/pasty filippo ds. Avoid dry scattered foods. Aspiration/reflux precautions. No ongoing need for speech to follow at this time. Continue nectar thick liquids - Patient with history of extended chronic cough and PFTs showing restrictive disease. Continue fluticasone/Vilanterol inhaler, steroids as above. On PPI and H2 karsten for reflux contribution to this, continue. Continue Tessalon Perles. 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 Converted to metoprolol twice daily while inpatient for formulary ARB held in the setting of FLORENCIA/ARF as above Echo 05/2020: LVEF 60-65%, grade 2 diastolic dysfunction Worsened renal function and rales. Followup TTE pending Rales developed /, patient pending dialysis as above (6) Chronic diastolic CHF (congestive heart failure): Plan: As above (7) Pneumonia: Plan: As above (8) Atrial flutter with rapid ventricular response: Plan: Atrial flutter Continue Eliquis Continue beta-karsten, nebivolol convert to metoprolol as above - Adequate rate control 05/02/21 (9) Breast cancer: Plan: Breast cancer: History of, follows with Leigh Flores PA-C with Heme/Onc. Known to have metastatic lesion to the L spine, no change in size or new lesions on CTAP at admission Continue exemestane. (10) Hypothyroidism: Plan: Hypothyroidism Continue home Synthroid Plan: Code Status: FULL CODE FEN: heart healthy, DM2, low sodium diet DVT ppx: Eliquis 2.5mg BID. Held in a.m. for catheter placement. Dispo: Med/Surg with Telemetry Admission and Anticipated Discharge Date Admission Date: May 01, 2021 Subjective Seen at bedside this morning. Patient reports that she knows her kidney function is worsening and urine is poor, she reports she is frustrated and scared by the prospect of dialysis. She reports she knows many people started dialysis and within several months, and this makes her very nervous is agreeable to it. Discussed tunneled catheter placement, patient understanding of this and that fistula is not able to be used at this time. She denies fever, chills, sweats. Continues to have a cough which remits at night and which is worsened during the day and with speech. Does not feel short of breath at time of assessment. No chest pain/chest pressure. BMs unchanged from previous. No abdominal pain. Denies swelling in the hands/feet. Discussed plan of care kidney function with patient at bedside, and also with son to him by phone. Review of Systems Review of Systems: All systems reviewed & are unremarkable except as noted in Subjective Physical Exam Physical Exam: General: A&Ox3. NAD. Cooperative. Cough persists. HEENT: Atraumatic, normocephalic. Visual acuity and hearing grossly intact. Pulm: Bilateral rales on exam, no wheezes/rhonchi. Frequent cough. Symmetrical chest rise. No increase in work of breathing. No respiratory distress. Cardiac: RRR, -mrg. Radial pulses intact and symmetrical. Trace ankle edema not significantly increased from prior. Abdominal: Nontender, nondistended, soft. BS present. Results & Data Results & Data ([facility]) Vital Signs (Past 12 Hours) Vital Signs Temp Pulse Pulse Resp BP Pulse Ox 05/04/21 06:58 67 05/04/21 03:29 36.4 C L 63 18 96/58 L 94 05/04/21 01:22 80 20 99/61 L 95 05/03/21 23:27 75 83/50 L 05/03/21 22:38 36.5 C 82 18 90/49 L 95 PG Care Time/CCT Total # of Minutes Spent Total Time Spent with Patient: Total time spent is greater than 50% in coordination of care (as documented) at patient's floor/unit and/or counseling patient: Coding Level of Care Code 37709 Subseq Hosp Care Lvl 2 Diagnoses Acute kidney injury superimposed on CKD N17.9; N18.9 Chronic cough R05 Diabetes E11.9 GERD (gastroesophageal reflux disease) K21.9 CAD (coronary artery disease) I25.10 Chronic diastolic CHF (congestive heart failure) I50.32 Pneumonia J18.9 Laterality: right Lung location: lower lobe of lung Pneumonia type: due to unspecified organism Atrial flutter with rapid ventricular response I48.92 Breast cancer C50.919 Hypothyroidism E03.9 Hypothyroidism type: unspecified (1) Pneumonia Laterality: right Lung location: lower lobe of lung Pneumonia type: due to unspecified organism Qualified Code(s): J18.9 - Pneumonia, unspecified organism (2) Hypothyroidism Hypothyroidism type: unspecified Qualified Code(s): E03.9 - Hypothyroidism, unspecified
--- NOTE | 2021-05-04 19:53 | XCELERA ---
[id number]
[2021-05-04] MEDS: PRAMIPEXOLE DIHYDROCHLO 0.25 MG TAB PO SCH (20:11)
[2021-05-04] MEDS: DOCUSATE SODIUM 100 MG CAP PO SCH (20:11)
[2021-05-04] MEDS: CLOPIDOGREL BISULFATE 75 MG TAB PO SCH (20:12)
[2021-05-04] MEDS: ATORVASTATIN 40 MG TAB PO SCH (20:13)
[2021-05-04] MEDS: FLUTICASONE/VILANTEROL 200/25MCG 14 PUFFS/INHALER INH SCH (20:15)
[2021-05-05] MEDS: HEPARIN 100 UNIT/ML 5ML FLUSH FLUSH PRN (06:16)
[2021-05-05] MEDS: LEVOTHYROXINE SODIUM 150 MCG TABLET PO SCH (06:16)
[2021-05-05 06:32] LABS: Hematocrit (blood only) 33.8 % (37-47); Hemoglobin 10.9 g/dL (12.0-16.0); Immature Granulocytes # (auto) 0.01 K/uL (0.00-0.02); Immature Granulocytes % (auto) 0.1 %; Lymphocytes # (auto) 0.73 K/uL (1.2-3.4); Lymphocytes % (auto) 10.1 %; Mean Corpuscular Hgb Conc 32.2 g/dL (32-36); Mean Corpuscular Volume 86.9 fL (80-100); Mean Platelet Volume 11.4 fL (7.4-10.4); Monocytes % (auto) 8.3 %; Neutrophils % (auto) 81.5 %; Nucleated RBC # (auto) 0.04 K/uL (0-0); Nucleated RBC % (auto) 0.5 %; Platelet Count 172 K/uL (130-400); RDW Coefficient of Variation 18.1 % (11.5-14.5); RDW Standard Deviation 55.1 fL (36.4-46.3); Red Blood Count 3.89 M/uL (4.2-5.4); White Blood Count 7.24 K/uL (4.8-10.8)
[2021-05-05 06:59] LABS: Albumin Level 3.5 gm/dl (3.4-5.0); BUN Creatinine Ratio 22.4 (10-20); Calcium 7.4 mg/dl (8.5-10.1); Creatinine Clr Calc Pharmacy 8.9 ml/min; Est GFR (African American) 7.7 ml/min; Est GFR (Non-African American) 6.7 ml/min; Phosphorus 7.5 mg/dl (2.5-4.9); Potassium 4.5 mmol/L (3.5-5.1)
[2021-05-05] MEDS: INSULIN ASPART PER UNIT SC SCH ×4 (07:41→20:58)
--- NOTE | 2021-05-05 07:54 | History & Physical Bridge Note ---
Date of Service May 05, 2021 History & Physical Bridge Note Patient for permcath insertion today. I have discussed the risks options and benefits of the procedure with the patient. The patient understands the risks options and benefits and agrees to the procedure. I have examined the patient, reviewed the History & Physical and in the interval since the performance of the History & Physical I have noted the following changes of clinical significance: no changes noted
--- NOTE | 2021-05-05 07:55 | Pre Anesthesia Assessment ---
Date of Service May 05, 2021 Pre Sedation Assessment Vital Signs Temp Pulse Pulse Resp BP Pulse Ox 05/05/21 07:06 79 05/05/21 02:51 36.4 C L 82 18 131/70 95 05/05/21 02:35 70 05/04/21 23:00 36.4 C L 79 17 120/74 94 05/04/21 19:21 36.5 C 62 18 108/67 96 05/04/21 18:40 65 05/04/21 14:52 36.3 C L 67 20 109/69 95 05/04/21 11:47 36.3 C L 98 H 20 114/75 92 Cardiovascular RRR, no murmur, no edema + AV fistula Respiratory normal respiratory effort, lungs clear to auscultation Pre-Sedation Airway Assessment Smoking Status: Never smoker Hx Sleep Apnea: No Short, Thick Neck: Yes Thyromental Distance: < 3.5 Finger Breadths Oral Cavity: + WNL Mallampati Class: II ASA: ASA4 NPO Status Date of Last Intake of Fluids: 05/04/21 Time of Last Intake of Fluids: 21:00 Date of Last Intake of Solid Food: 05/04/21 Time of Last Intake of Solid Foods: 17:00 Procedure Planning Contraindications for Sedation: none Current Medications Reviewed: Yes Notes The planned sedation has been discussed with the patient. Informed Consent was obtained. I have identified the patient, determined the appropriateness of sedation and have assessed the patient immediately prior to the procedure. All medicine(s) and interventions are by my order.
[2021-05-05] MEDS ORDERED: ceFAZolin 2000MG 2,000 MG/15 ML SYR IV ONE (08:06)
[2021-05-05 08:15] LABS: Hepatitis B Surface Ab Quant < 3.10 mIU/mL (>or=10mIU/mL Immune); Hepatitis B Surface Antibody Non-Immune
[2021-05-05 08:23] LABS: Hepatitis B Surf Ag Rflx Conf Neg (Neg)
[2021-05-05] MEDS ORDERED: MIDAZOLAM HCL 1 MG/ML 2ML VIAL ONE (08:40)
[2021-05-05] MEDS ORDERED: HEPARIN SOD (PORCINE) 5,000 UNITS/ML VIAL ONE (08:40)
[2021-05-05] MEDS ORDERED: LIDOCAINE 1% LOCAL 20 ML VIAL ONE (08:40)
[2021-05-05] MEDS ORDERED: fentaNYL citrate 100 MCG/2 ML VIAL ONE (08:40)
[2021-05-05] MEDS ORDERED: ARISTA ABSORBABLE HEMOSTAT 3GM TOP ONE (08:44)
--- NOTE | 2021-05-05 08:53 | Operative Report ---
Post Operative Report Pre & Post Diagnosis Operation Date: 05/05/21 08:00 Pre-Op Diagnosis: acute renal failure Post-Op Diagnosis: acute renal failure I identified the patient and participated in the time-out.: Yes Procedure Operation Date: 05/05/21 08:00 Actual Procedures p Insertion of Perm Cath, Left subclavian Vein, FLuroscopy for Positioning , Moderate Sedation [id number](Left) - Yuan Morris MD Surgeon Yuan Morris MD Radio Message Router none Estimated Blood Loss 5 Findings Consistent with Post-Op Diagnosis Specimens none Anesthesia Type RN Sedation Complications none Disposition Accompanied Patient To Recovery: No Disposition: Recovery Room Indications This is an 85-year-old female with chronic renal failure now in acute failure needing dialysis. She has a fistula in place which is not accessible due to its location. PermCath was recommended for dialysis. I have discussed the risks options and benefits of the procedure with the patient. The patient understands the risks options and benefits and agrees to the procedure. Description of Procedure Patient was taken to the angio suite and placed in the supine position. The [facility] side of the neck and chest wall were prepped and draped in a sterile manner. The patient was identified and a timeout performed. Local anesthesia was then administered to the appropriate areas of the neck and chest wall. Ultrasound was then used to locate the right internal jugular vein. The vein did not visualize. 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 A left subclavian approach would then be addressed. The left subclavian vein was then . A guidewire was then passed centrally under fluoroscopic imaging. A stab wound was then made in the anterior chest wall and a 19 cm permcath was passed from the stab wound on the chest wall to the puncture site at the infraclavicular area of the left side. The puncture site was then dilated till the 14Fr peel away sheath was inserted. The permcath was then inserted through the sheath to a central position in the distal superior vena cava. The peel away sheath was then removed. The catheter was then sutured in place using nylon sutures. The puncture was then closed using a 4-0 Vicryl subcuticular suture. Dermabond was used for a dressing on the puncture site. Both ports aspirated and flushed easily and were then packed with heparin. A sterile dressing was applied to the catheter. The patient left the operation room in satisfactory condition and tolerated the procedure well. All needle and sponge counts were correct at the end of the procedure. I attest to the content of the Intraoperative Record and any orders documented therein. Any exceptions are noted below.
--- NOTE | 2021-05-05 08:54 | Post Anesthesia Assessment ---
Date of Service May 05, 2021 Post Sedation Assessment Vital Signs Temp Pulse Pulse Pulse Resp BP Pulse Ox 05/05/21 08:52 75 16 109/58 L 94 05/05/21 08:47 64 16 96/60 L 99 05/05/21 08:46 64 16 111/63 99 05/05/21 08:41 61 16 108/62 100 05/05/21 08:36 71 16 126/62 100 05/05/21 08:31 83 16 109/71 99 05/05/21 08:26 83 16 141/75 H 98 05/05/21 08:17 76 16 127/74 96 05/05/21 07:45 36.4 C L 69 20 125/57 L 94 05/05/21 07:06 79 05/05/21 02:51 36.4 C L 82 18 131/70 95 05/05/21 02:35 70 05/04/21 23:00 36.4 C L 79 17 120/74 94 05/04/21 19:21 36.5 C 62 18 108/67 96 05/04/21 18:40 65 05/04/21 14:52 36.3 C L 67 20 109/69 95 05/04/21 11:47 36.3 C L 98 H 20 114/75 92 Recovery Score Activity: Moves 4 extremities Respiration: Deep Breath/Cough Circulation: +/-20% PreAnes Value Consciousness: Arouseable (by name) Oxygen Saturation: > 92% On Room Air Post Anesthesia Score: 9 Discharge Sedation Level of Care: Fast Track Phase II Post Sedation Plan On clinical assessment, the patient appears to have tolerated the sedation without complications. Patient is recovering as anticipated. Patient will continue to be monitored by nursing and may be discharged when sedation discharge criteria are met per below protocol. Upon Completions of procedure up to 15 minutes continue every 5 minute vital signs and the P.A.R. score; then discharge to a Phase I or Fast Track to Phase II per the following guidelines: * Discharge Patient to appropriate Phase II area if PAR is 8 or greater or return to pre- procedure baseline. The post - procedure orders will be as directed. * If PAR score is less than 8 or not return to pre-procedure baseline then patient will follow Phase I monitoring till PAR is reached for Phase II. The Phase I may be done in procedure room or may call to secure a Phase I area. * If naloxone or flumazenil are used for reversal, hold in Phase I for continued monitoring from when last reversal dose was given for a minimum of 60 minutes or longer pending the nurse and/or physician discretion of patient condition before discharge to Phase II. Please call the Sedation Physician to re-evaluate and complete post-note for discharge to Phase II area. Do NOT discharge from procedure sedation or Phase 1 until post- sedation evaluation note is complete by procedure /sedation MD Sedation Discharge Instructions to be given to the patient at discharge to home.
[2021-05-05] MEDS ORDERED: ONDANSETRON INJ 2 MG/ML 2 ML VIAL IV ONE (09:21)
[2021-05-05] MEDS ORDERED: ONDANSETRON INJ 2 MG/ML 2 ML VIAL ONE (09:24)
[2021-05-05] MEDS: IRON SUCROSE 200 MG in 0.9 % SODIUM CHLORIDE 100 ML IV SCH (09:52)
[2021-05-05] MEDS: METOPROLOL TARTRATE 50 MG TAB PO SCH ×2 (10:06→21:00)
[2021-05-05] MEDS: BENZONATATE 100 MG CAPSULE PO SCH ×3 (10:17→21:00)
[2021-05-05] MEDS: GABAPENTIN 100 MG CAP PO SCH ×3 (10:18→21:00)
[2021-05-05] MEDS: MULTIVITAMIN TAB PO SCH (10:18)
[2021-05-05] MEDS: CALCITRIOL 0.25 MCG CAPSULE PO SCH (10:18)
[2021-05-05] MEDS: FAMOTIDINE 20 MG TAB PO SCH (10:18)
[2021-05-05] MEDS: ISOSORBIDE MONO EXTENDED REL 60 MG TABCR PO SCH (10:19)
[2021-05-05] MEDS: CHOLECALCIFEROL 1,000 UNITS 25 MCG TAB PO SCH (10:19)
[2021-05-05] MEDS: PANTOprazole 40 MG TAB PO SCH (10:19)
[2021-05-05] MEDS: predniSONE 20 MG TAB PO SCH (10:19)
[2021-05-05] MEDS: FLUTICASONE PROPIONATE NA SPR 16 GM BTL SCH (10:20)
[2021-05-05] MEDS: EXEMESTANE PO SCH (10:20)
[2021-05-05] MEDS: INSULIN GLARGINE SOLOSTAR 100 UNITS/ML 3 ML PEN SC SCH ×2 (10:20→20:58)
--- NOTE | 2021-05-05 10:54 | Pharmacy Report ---
Pharmacy Glycemic Short Note 2 - Date of Service May 05, 2021 - Glycemic Short BSG Results (Last 24 hours): 05/04/21 05/04/21 05/04/21 11:37 16:14 19:54 Glucose POC Glucose 157 H 192 H 194 H 05/05/21 05/05/21 06:12 07:25 Glucose 135 H POC Glucose 136 H OUTPATIENT ANTIDIABETIC REGIMEN: * Lantus 25 units SQ qAM -- recent change (pt taken off of pump d/t frequent hypoglycemia) * Previously on insulin pump: * V-Go Novolog pump * 1.25 units/hr (30 units of basal daily) * 6 units (3 clicks) with breakfast * 4 units (2 clicks) with lunch * 8 units (4 clicks) with dinner * HbA1c: 7.7% (05/01/21) ASSESSMENT: 05/05/21 * BSGs better-controlled yesterday after changes to regimen; still trending up throughout the day. * Pt was NPO after midnight for perm cath insertion this morning in the OR. * No significant changes to regimen today, as pt was NPO and plans to start HD soon. * Pt continues to receive Prednisone 40mg daily, but she also has significant risk of hypoglycemia. Adjusting regimen cautiously. * Consider transitioning to daily Lantus tomorrow morning for ease of discharge. 2 * Ms Narvaez is an 85yo diabetic female admitted 05/01/21 with worsening cough (?pna) and FLORENCIA on CKD. * BSGs have been elevated during admission 2/2 steroids (was on SoluMedrol 40mg IV q12h, now on Prednisone 40mg daily). * Pharmacy consulted this morning to assist with glycemic mgmt. * Novolog parameters were adjusted this morning to provide additional prandial coverage, as this is where steroid-induced hyperglycemia is most pronounced. If this is insufficient in controlling BSGs, may add NPH tomorrow morning. * Adjusting regimen cautiously in the setting of FLORENCIA (SCr 5.14, baseline 3.0). Pt will be more at risk for "insulin stacking". PLAN FOR INPATIENT GLYCEMIC CONTROL: * Hold outpatient oral diabetes medications * Basal insulin * Lantus 15 units SQ BID * Bolus insulin * NovoLog per scale ACHS or Q6hrs while NPO * Goal Range: Low 110 mg/dL - High 140 mg/dL * Correction Factor: 20 mg/dL/unit * Nutritional / Prandial insulin per carb ratio of 1 unit per 5 grams CHO consumed PLAN FOR DISCHARGE: * A1c: 7.7% * This result is likely somewhat unreliable in CKD/ESRD patients d/t interactions between the A1c analyzing technique and high levels of urea in ESRD, reduced RBC life span, iron deficiency anemia, and EPO administration. HbA1c > 7.5% in ESRD patient may overestimate the extent of hyperglycemia in ESRD patients. * Expect that pt may resume home regimen on discharge, as long as she does not report having episodes of hypoglycemia.
--- NOTE | 2021-05-05 11:11 | Nephrology Progress Note ---
Date of Service May 05, 2021 Assessment & Plan (1) Acute kidney injury superimposed on CKD: (2) Anemia: (3) Hyperkalemia: (4) Cough: (5) End stage renal disease: Plan: 85 y o F with stage 4 CKD, b/l cr 3.0, admitted with FLORENCIA, cr 4.5, worsening chronic cough. Her blood pressure is relatively low. Chest x-ray was unremarkable. renal function progressively worsened with multiple electrolyte abnormality, urine output has been low. She seems to have reached end-stage kidney disease, had tunneled dialysis catheter on 05/05/2021. -- Plan for 1st dialysis treatment today for 2 hours with low blood flow. If tolerated will increase time to 3 hours tomorrow. outpatient dialysis being set up at [facility]. -- Received Epogen 72318 units and getting IV Venofer. Will follow Admission and Anticipated Discharge Date Admission Date: May 01, 2021 Beka Diaz was seen and examined in her room this morning. She had tunneled dialysis catheter this morning, just came back from OR, having breakfast. Had some bleeding from catheter site, had a pressure dressing. Denies any pain. Urine output has been low, Blood pressure relatively low. Renal function worsened with multiple electrolyte abnormality. Review of Systems Review of Systems: Detail ROS was negative except mentioned above. Physical Exam Constitutional: WD/WN, vitals as above no acute distress Eyes: + anicteric sclerae ENMT: Ears: no hearing impairment Neck: normal visual inspection Respiratory: normal respiratory effort; no respiratory distress Auscultation: + rales Cardiovascular: Rate/Rhythm: regular rate and regular rhythm Heart Sounds: normal S1 and normal S2 Extremities: + vascular access device ( Right IJ tunneled dialysis catheter, dressing soaked.) and + AV fistula ( rt arm AVF with thrill and bruit.); no edema Skin: no rashes Neurologic: no focal motor deficits and not confused Psychiatric: Orientation: alert and oriented x 3 Results & Data ([facility]) Vital Signs (Past 12 Hours) Vital Signs Temp Pulse Pulse Pulse Resp BP Pulse Ox 05/05/21 10:10 59 L 18 107/52 L 91 05/05/21 09:42 62 16 95/60 L 94 05/05/21 09:10 70 18 112/71 94 05/05/21 08:52 75 16 109/58 L 94 05/05/21 08:47 64 16 96/60 L 99 05/05/21 08:46 64 16 111/63 99 05/05/21 08:41 61 16 108/62 100 05/05/21 08:36 71 16 126/62 100 05/05/21 08:31 83 16 109/71 99 05/05/21 08:26 83 16 141/75 H 98 05/05/21 08:17 76 16 127/74 96 05/05/21 07:45 36.4 C L 69 20 125/57 L 94 05/05/21 07:06 79 05/05/21 02:51 36.4 C L 82 18 131/70 95 05/05/21 02:35 70 PG Care Time/CCT Total # of Minutes Spent Total Time Spent with Patient: Total time spent is greater than 50% in coordination of care (as documented) at patient's floor/unit and/or counseling patient: Coding Level of Care Code 78756 Subseq Hosp Care Lvl 3 Diagnoses Acute kidney injury superimposed on CKD N17.9; N18.9 Anemia D64.9 Hyperkalemia E87.5 Cough R05 End stage renal disease N18.6
[2021-05-05] MEDS: guaiFENesin SUGAR FREE 100 MG/5 ML UDC PO PRN (16:05)
--- NOTE | 2021-05-05 18:30 | Hospitalist Progress Note ---
Date of Service May 05, 2021 Assessment & Plan (1) Acute kidney injury superimposed on CKD: Plan: 85 yo F Hx CKD IV with a baseline creatinine of 3.2, breast cancer with metastatic lesions to the L-spine, atrial flutter on Eliquis, GERD, chronic diastolic heart failure, CAD, chronic cough admitted for acute renal failure on CKD as well as with worsening cough and suspicion for pneumonia (atypical versus aspiration related). Acute renal failure on CKD/ESRD Baseline creatinine 3.2 Recent increase in Bumex for weight gain Admitting EKG: Without peaked T waves, potassium 5.2 on admission normalized to 4.5 Creatinine acutely elevated on admission to 4.51, nonanuric Slight initial improvement initially, followed by worsening / and 05/04. Patient with hyponatremia, clinically increasing volume status, and rales. No oxygen requirement, continued poor urine output. Creatinine continued to increase, this is consistent with progression to end-stage renal disease, patient had a tunneled dialysis catheter placed 05/05 and first dialysis session was performed midday 05/05. Tolerated first session 2 hours, low flow. Total filtrate 839 mL. Anticipate 3-hour session tomorrow. Outpatient dialysis being set up through [facility]. Received Epogen and IV iron. TTE with preserved EF, small pericardial effusion no tamponade, pHTN consistent with hx. (2) Chronic cough: Plan: Cough, post Covid inflammatory versus pneumonia CTC: Scattered tree-in-bud airspace opacities are seen throughout both lungs, greatest in the right lung base. This is increased from 11/23/2020 and likely on a chronic infectious/inflammatory basis. Clinical correlation will be required. No evidence of progressive metastatic disease in chest, abdomen, or pelvis on CT. Small volume of ascites appreciated on CT. 4 mm indeterminate right middle lobe pulmonary nodule seen, new, likely inflammatory, likely require attention at follow-up Pneumonia, hypoxia, acute on chronic cough: Acute worsening of chronic cough which have been present for several months with wheezing Concerned admission for atypical pneumonia/aspiration pneumonia/pneumonitis. Received empiric Zosyn/azithromycin. Suspect inflammatory and additional antibiotics deferred. Low threshold to continue antibiotics with anaerobe coverage if worsened or breathing does not continue to improve with concern for aspiration. No leukocytosis /3 COVID-19 negative, did have a positive test 04/14/2021 as outpatient for which we do not have a record Steroids converted to daily prednisone 40 mg Influenza A/B- Mycoplasma pneumonia pending - Remains on room air Diet texture easy to chew IDDSI 7, moist to meals avoiding dry/thick/pasty foods. Avoid dry scattered foods. Aspiration/reflux precautions. No ongoing need for speech to follow at this time. Continue nectar thick liquids - Patient with history of extended chronic cough and PFTs showing restrictive disease. Continue fluticasone/Vilanterol inhaler, steroids as above. On PPI and H2 karsten for reflux contribution to this, continue. Continue Tessalon Perles. Gabapentin increased deferred in the setting of worsening renal function (3) Diabetes: Plan: DM2: Insulin pump held for basal/bolus hospital management Glucose checks AC/at bedtime BMP daily Fasting glucose 152, postprandials within goal range (4) GERD (gastroesophageal reflux disease): Plan: GERD: Continue home pantoprazole Continue famotidine (5) CAD (coronary artery disease): Plan: CAD, diastolic CHF, HTN: History of PCI with stent to LAD and D1 07/2015 Continue Plavix Patient on nebivolol every afternoon 10 mg [employer]. Converted to metoprolol twice daily while inpatient for formulary ARB held in the setting of FLORENCIA/ARF as above Echo 05/2020: LVEF 60-65%, grade 2 diastolic dysfunction Worsened renal function and rales. TTE: Normal LV SF, EF 55-60%. No regional wall motion abnormalities. Small pericardial effusion without evidence of tamponade. Mild pulmonary hypertension (6) Chronic diastolic CHF (congestive heart failure): Plan: As above (7) Pneumonia: Plan: As above (8) Atrial flutter with rapid ventricular response: Plan: Atrial flutter Continue Eliquis Continue beta-karsten, nebivolol convert to metoprolol as above - Adequate rate control 05/02/21 (9) Breast cancer: Plan: Breast cancer: History of, follows with Leigh Flores PA-C with Heme/Onc. Known to have metastatic lesion to the L spine, no change in size or new lesions on CTAP at admission Continue exemestane. (10) Hypothyroidism: Plan: Hypothyroidism Continue home Synthroid Plan: Code Status: FULL CODE FEN: heart healthy, DM2, low sodium diet DVT ppx: Eliquis 2.5mg BID. Held in a.m. for catheter placement. Dispo: Med/Surg with Telemetry Admission and Anticipated Discharge Date Admission Date: May 01, 2021 Subjective Seen at bedside this morning. Has had dialysis catheter placed. Did have some bleeding at the site which stopped with pressure. Did have some postprocedural nausea which resolved with Zofran. Otherwise feels "okay ". Endorses fatigue, no difficulty breathing/shortness of breath. Review of Systems Review of Systems: All systems reviewed & are unremarkable except as noted in Subjective Physical Exam Physical Exam: General: A&Ox3. NAD. Cooperative. Cough persists. HEENT: Atraumatic, normocephalic. Visual acuity and hearing grossly intact. Thorax: Tunneled dialysis catheter present at left upper chest, had some postoperative bleeding at site which resolved with pressure. No ongoing bleeding. Otherwise intact, no surrounding erythema/warmth/tenderness/discharge. Pulm: Continues with bilateral rales on exam, no wheezes/rhonchi. Frequent cough. Symmetrical chest rise. No increase in work of breathing. No respiratory distress. Cardiac: RRR, -mrg. Radial pulses intact and symmetrical. Abdominal: Nontender, nondistended, soft. BS present. Extremities: Warm, dry. Continues to have mild ankle edema Results & Data Results & Data ([facility]) Vital Signs (Past 12 Hours) Vital Signs Temp Pulse Pulse Pulse Resp BP BP 05/05/21 15:19 36.4 C L 71 20 117/71 05/05/21 13:35 36.1 C L 90 18 110/61 05/05/21 13:28 36.4 C L 69 114/68 05/05/21 13:00 73 105/65 05/05/21 12:40 91 H 112/65 05/05/21 12:20 82 114/63 05/05/21 12:00 63 97/55 L 05/05/21 11:40 68 91/53 L 05/05/21 11:20 78 105/59 L 05/05/21 11:07 55 L 108/46 L 05/05/21 10:45 36.6 C 61 05/05/21 10:10 59 L 18 107/52 L 05/05/21 09:42 62 16 95/60 L 05/05/21 09:10 70 18 112/71 05/05/21 08:52 75 16 109/58 L 05/05/21 08:47 64 16 96/60 L 05/05/21 08:46 64 16 111/63 05/05/21 08:41 61 16 108/62 05/05/21 08:36 71 16 126/62 05/05/21 08:31 83 16 109/71 05/05/21 08:26 83 16 141/75 H 05/05/21 08:17 76 16 127/74 05/05/21 07:45 36.4 C L 69 20 125/57 L 05/05/21 07:06 79 Pulse Ox 05/05/21 15:19 94 05/05/21 13:35 96 05/05/21 13:28 05/05/21 13:00 05/05/21 12:40 05/05/21 12:20 05/05/21 12:00 05/05/21 11:40 05/05/21 11:20 05/05/21 11:07 05/05/21 10:45 05/05/21 10:10 91 05/05/21 09:42 94 05/05/21 09:10 94 05/05/21 08:52 94 05/05/21 08:47 99 05/05/21 08:46 99 05/05/21 08:41 100 05/05/21 08:36 100 05/05/21 08:31 99 05/05/21 08:26 98 05/05/21 08:17 96 05/05/21 07:45 94 05/05/21 07:06 PG Care Time/CCT Total # of Minutes Spent Total Time Spent with Patient: Total time spent is greater than 50% in coordination of care (as documented) at patient's floor/unit and/or counseling patient: Coding Level of Care Code 16312 Subseq Hosp Care Lvl 3 Diagnoses Acute kidney injury superimposed on CKD N17.9; N18.9 Chronic cough R05 Diabetes E11.9 GERD (gastroesophageal reflux disease) K21.9 CAD (coronary artery disease) I25.10 Chronic diastolic CHF (congestive heart failure) I50.32 Pneumonia J18.9 Laterality: right Lung location: lower lobe of lung Pneumonia type: due to unspecified organism Atrial flutter with rapid ventricular response I48.92 Breast cancer C50.919 Hypothyroidism E03.9 Hypothyroidism type: unspecified (1) Pneumonia Laterality: right Lung location: lower lobe of lung Pneumonia type: due to unspecified organism Qualified Code(s): J18.9 - Pneumonia, unspecified organism (2) Hypothyroidism Hypothyroidism type: unspecified Qualified Code(s): E03.9 - Hypothyroidism, unspecified
[2021-05-05] MEDS: FLUTICASONE/VILANTEROL 200/25MCG 14 PUFFS/INHALER INH SCH (20:59)
[2021-05-05] MEDS: ATORVASTATIN 40 MG TAB PO SCH (21:01)
[2021-05-05] MEDS: DOCUSATE SODIUM 100 MG CAP PO SCH (21:01)
[2021-05-05] MEDS: PRAMIPEXOLE DIHYDROCHLO 0.25 MG TAB PO SCH (21:02)
[2021-05-05] MEDS: CLOPIDOGREL BISULFATE 75 MG TAB PO SCH (21:40)
[2021-05-06] MEDS: guaiFENesin SUGAR FREE 100 MG/5 ML UDC PO PRN (00:16)
[2021-05-06] MEDS: LEVOTHYROXINE SODIUM 150 MCG TABLET PO SCH (06:24)
[2021-05-06] MEDS: BENZONATATE 100 MG CAPSULE PO SCH ×3 (08:07→21:19)
[2021-05-06] MEDS: PANTOprazole 40 MG TAB PO SCH (08:07)
[2021-05-06] MEDS: GABAPENTIN 100 MG CAP PO SCH ×3 (08:07→21:18)
[2021-05-06] MEDS: MULTIVITAMIN TAB PO SCH (08:07)
[2021-05-06] MEDS: FAMOTIDINE 20 MG TAB PO SCH (08:07)
[2021-05-06] MEDS: METOPROLOL TARTRATE 50 MG TAB PO SCH ×2 (08:07→21:18)
[2021-05-06] MEDS: ISOSORBIDE MONO EXTENDED REL 60 MG TABCR PO SCH (08:08)
[2021-05-06] MEDS: predniSONE 20 MG TAB PO SCH (08:08)
[2021-05-06] MEDS: CHOLECALCIFEROL 1,000 UNITS 25 MCG TAB PO SCH (08:08)
[2021-05-06] MEDS: CLOPIDOGREL BISULFATE 75 MG TAB PO SCH (08:08)
[2021-05-06] MEDS: CALCITRIOL 0.25 MCG CAPSULE PO SCH (08:08)
[2021-05-06] MEDS: EXEMESTANE PO SCH (08:09)
[2021-05-06] MEDS: FLUTICASONE PROPIONATE NA SPR 16 GM BTL SCH (08:10)
[2021-05-06] MEDS: IRON SUCROSE 200 MG in 0.9 % SODIUM CHLORIDE 100 ML IV SCH (08:19)
[2021-05-06 09:14] LABS: Hematocrit (blood only) 33.8 % (37-47); Hemoglobin 10.9 g/dL (12.0-16.0); Immature Granulocytes # (auto) 0.02 K/uL (0.00-0.02); Immature Granulocytes % (auto) 0.2 %; Lymphocytes # (auto) 1.34 K/uL (1.2-3.4); Lymphocytes % (auto) 15.2 %; Mean Corpuscular Hemoglobin 27.9 pg (25-34); Mean Corpuscular Hgb Conc 32.2 g/dL (32-36); Mean Corpuscular Volume 86.4 fL (80-100); Mean Platelet Volume 12.1 fL (7.4-10.4); Monocytes # (auto) 1.11 K/uL (0.11-0.59); Monocytes % (auto) 12.6 %; Neutrophils # (auto) 6.34 K/uL (1.4-6.5); Nucleated RBC # (auto) 0.06 K/uL (0-0); Nucleated RBC % (auto) 0.6 %; Platelet Count 191 K/uL (130-400); RDW Coefficient of Variation 18.4 % (11.5-14.5); RDW Standard Deviation 55.9 fL (36.4-46.3); Red Blood Count 3.91 M/uL (4.2-5.4); White Blood Count 8.81 K/uL (4.8-10.8)
[2021-05-06] MEDS: INSULIN ASPART PER UNIT SC SCH ×4 (09:27→21:20)
[2021-05-06] MEDS: INSULIN GLARGINE SOLOSTAR 100 UNITS/ML 3 ML PEN SC SCH ×2 (09:28→21:21)
[2021-05-06 10:00] LABS: Albumin Level 3.5 gm/dl (3.4-5.0); BUN Creatinine Ratio 19.9 (10-20); Calcium 7.5 mg/dl (8.5-10.1); Creatinine Clr Calc Pharmacy 9.2 ml/min; Est GFR (African American) 8.1 ml/min; Phosphorus 6.8 mg/dl (2.5-4.9)
--- NOTE | 2021-05-06 11:54 | Nephrology Progress Note ---
Date of Service May 06, 2021 Assessment & Plan (1) Acute kidney injury superimposed on CKD: (2) End stage renal disease: (3) Anemia: (4) Chronic anticoagulation: (5) S/P dialysis catheter insertion: Plan: Emily has advanced CKD progressed to ESRD. AVF is maturing but not ready for use. TDC placed by Dr. Morris 05/05. First dialysis treatment completed 05/05. Bleeding from catheter noted overnight. Some oozing during HD today. Noted that antiplatelet therapy and Eliquis have been held. No heparin with HD. H/H stable. IV iron is being provided, day 4 of . Defer ROHITH therapy for now with Hgb >10. The second HD treatment is being completed today. Orders were entered into the EHR and reviewed with the dialysis nurse. Emily was seen and evaluated during dialysis. She is tolerating treatments well. BP controlled. Volume status improving. I discussed the plan of care with staff at [facility] today. They anticipate the patient starting outpatient HD under the care of Dr. Nagel next week. There is no schedule/chair time currently. Arrangements for transportation have not been coordinated. We are awaiting confirmation of outpatient arrangements from case management at [facility]. Orders for outpatient dialysis have been provided. Hep B antibody negative. Next anticipated HD treatment will be Saturday vs. Saturday. Once outpatient arrangements have been finalized, Continued calcitriol 0.25 daily. Medications appropriately dosed for kidney function. Valsartan stopped due to FLORENCIA and history of hyperkalemia. Will monitor I/O's while inpatient. Anticipate improvement in hyponatremia with dialysis. Dietary fluid restriction deferred for now. Admission and Anticipated Discharge Date Admission Date: May 01, 2021 Subjective Bleeding from around catheter noted. Emily was seen and evaluated on HD this morning. She is tolerating dialysis well. TDC functioning well for treatment. Qb at goal. BP is acceptable. Overall, Emily feels well. Review of Systems Constitutional: no weight loss, no weight gain and no problem reported Eyes: no problem reported Ear, Nose, Mouth, Throat: no problem reported Respiratory: no problem reported Cardiovascular: no problem reported Gastrointestinal: no problem reported Musculoskeletal: no problem reported Integumentary: no problem reported Neurologic: no problem reported Psychiatric: no problem reported Endocrine: no problem reported Hematologic / Lymphatic: no problem reported Physical Exam Constitutional: WD/WN, vitals as above no acute distress Eyes: + anicteric sclerae ENMT: Ears: no hearing impairment Neck: normal visual inspection Respiratory: normal respiratory effort; no respiratory distress Auscultation: + rales Cardiovascular: Rate/Rhythm: regular rate and regular rhythm Heart Sounds: normal S1 and normal S2 Extremities: + vascular access device ( Right IJ tunneled dialysis catheter, dressing soaked.) and + AV fistula ( rt arm AVF with thrill and bruit.); no edema Skin: no rashes Neurologic: no focal motor deficits and not confused Psychiatric: Orientation: alert and oriented x 3 Results & Data ([facility]) Vital Signs (Past 12 Hours) Vital Signs Temp Pulse Pulse Resp BP Pulse Ox 05/06/21 11:31 36.6 C 73 18 146/75 H 98 05/06/21 08:06 36.3 C L 68 18 102/52 L 97 05/06/21 07:17 66 05/06/21 04:24 36.4 C L 66 18 101/62 96 05/06/21 03:04 66 Laboratory Results Laboratory Results - last 24 hr 05/01/21 05/05/21 05/05/21 18:42 13:33 16:25 WBC RBC Hgb Hct MCV MCH MCHC RDW Std Deviation RDW Coeff of Oj Plt Count MPV Immature Gran % (Auto) Neut % (Auto) Lymph % (Auto) [place] % (Auto) Eos % (Auto) Baso % (Auto) Neut # (Auto) Lymph # (Auto) [place] # (Auto) Eos # (Auto) Baso # (Auto) Immature Gran # (Auto) Absolute Nucleated RBC Nucleated RBC % (auto) Sodium Potassium Chloride Carbon Dioxide Anion Gap BUN Creatinine Est Cr Clr Drug Dosing Est GFR ( Amer) Est GFR (Non-Af Amer) BUN/Creatinine Ratio Glucose POC Glucose 135 H 151 H Calcium Phosphorus Albumin Mycoplasma pneumon IgM 69 05/05/21 05/06/21 05/06/21 20:10 07:36 08:40 WBC RBC Hgb Hct MCV MCH MCHC RDW Std Deviation RDW Coeff of Oj Plt Count MPV Immature Gran % (Auto) Neut % (Auto) Lymph % (Auto) [place] % (Auto) Eos % (Auto) Baso % (Auto) Neut # (Auto) Lymph # (Auto) [place] # (Auto) Eos # (Auto) Baso # (Auto) Immature Gran # (Auto) Absolute Nucleated RBC Nucleated RBC % (auto) Sodium 131 L Potassium Chloride 94 L Carbon Dioxide 23 Anion Gap 14 H BUN 104 H Creatinine 5.23 H* Est Cr Clr Drug Dosing 9.2 Est GFR ( Amer) 8.1 Est GFR (Non-Af Amer) 7.0 BUN/Creatinine Ratio 19.9 Glucose 154 H POC Glucose 188 H 113 H Calcium 7.5 L Phosphorus 6.8 H Albumin 3.5 Mycoplasma pneumon IgM 05/06/21 05/06/21 08:40 10:26 WBC 8.81 RBC 3.91 L Hgb 10.9 L Hct 33.8 L MCV 86.4 MCH 27.9 MCHC 32.2 RDW Std Deviation 55.9 H RDW Coeff of Oj 18.4 H Plt Count 191 MPV 12.1 H Immature Gran % (Auto) 0.2 Neut % (Auto) 72.0 Lymph % (Auto) 15.2 [place]er % (Auto) 12.6 Eos % (Auto) 0.0 Baso % (Auto) 0.0 Neut # (Auto) 6.34 Lymph # (Auto) 1.34 [place]tinger # (Auto) 1.11 H Eos # (Auto) 0.00 Baso # (Auto) 0.00 Immature Gran # (Auto) 0.02 Absolute Nucleated RBC 0.06 H Nucleated RBC % (auto) 0.6 Sodium Potassium 4.9 Chloride Carbon Dioxide Anion Gap BUN Creatinine Est Cr Clr Drug Dosing Est GFR ( Amer) Est GFR (Non-Af Amer) BUN/Creatinine Ratio Glucose POC Glucose Calcium Phosphorus Albumin Mycoplasma pneumon IgM PG Care Time/CCT Total # of Minutes Spent Total Time Spent with Patient: Total time spent is greater than 50% in coordination of care (as documented) at patient's floor/unit and/or counseling patient: Coding Level of Care Code 46052 Subseq Hosp Care Lvl 3 Diagnoses Acute kidney injury superimposed on CKD N17.9; N18.9 End stage renal disease N18.6 Anemia D64.9 Chronic anticoagulation Z79.01 S/P dialysis catheter insertion Z95.828; Z99.2
--- NOTE | 2021-05-06 12:50 | Hospitalist Progress Note ---
Date of Service May 06, 2021 Assessment & Plan (1) Acute kidney injury superimposed on CKD: Plan: 85 yo F Hx CKD IV with a baseline creatinine of 3.2, breast cancer with metastatic lesions to the L-spine, atrial flutter on Eliquis, GERD, chronic diastolic heart failure, CAD, chronic cough admitted for acute renal failure on CKD as well as with worsening cough and suspicion for pneumonia (atypical versus aspiration related). Acute renal failure on CKD/ESRD Baseline creatinine 3.2 Recent increase in Bumex for weight gain Admitting EKG: Without peaked T waves, potassium 5.2 on admission normalized to 4.5 Creatinine acutely elevated on admission to 4.51, nonanuric Slight initial improvement initially, followed by worsening 05/03 and 05/04. Patient with hyponatremia, clinically increasing volume status, and rales. No oxygen requirement, continued poor urine output. Creatinine continued to increase, this is consistent with progression to end-stage renal disease, patient had a tunneled dialysis catheter placed 05/05 and first dialysis session was performed midday 05/05. Tolerated first session 2 hours, low flow. Total filtrate 839 mL. Patient tolerated 3 hour session on 05/06. will monitor tomorrow. Outpatient dialysis being set up through [facility]. Next session: Saturday, Saturday. Received Epogen and IV iron. TTE with preserved EF, small pericardial effusion no tamponade, pHTN consistent with hx. (2) Chronic cough: Plan: Cough, post Covid inflammatory versus pneumonia CTC: Scattered tree-in-bud airspace opacities are seen throughout both lungs, greatest in the right lung base. This is increased from 11/23/2020 and likely on a chronic infectious/inflammatory basis. Clinical correlation will be required. No evidence of progressive metastatic disease in chest, abdomen, or pelvis on CT. Small volume of ascites appreciated on CT. 4 mm indeterminate right middle lobe pulmonary nodule seen, new, likely inflammatory, likely require attention at follow-up Pneumonia, hypoxia, acute on chronic cough: Acute worsening of chronic cough which have been present for several months with wheezing Concerned admission for atypical pneumonia/aspiration pneumonia/pneumonitis. Received empiric Zosyn/azithromycin. Suspect inflammatory and additional antibiotics deferred. Low threshold to continue antibiotics with anaerobe co verage if worsened or breathing does not continue to improve with concern for aspiration. No leukocytosis 2/3 COVID-19 negative, did have a positive test 04/14/2021 as outpatient for which we do not have a record Steroids converted to daily prednisone 40 mg Influenza A/B- Mycoplasma pneumonia pending - Remains on room air Diet texture easy to chew IDDSI 7, moist to meals avoiding dry/thick/pasty foods. Avoid dry scattered foods. Aspiration/reflux precautions. No ongoing need for speech to follow at this time. Continue nectar thick liquids - Patient with history of extended chronic cough and PFTs showing restrictive disease. Continue fluticasone/Vilanterol inhaler, steroids as above. On PPI and H2 karsten for reflux contribution to this, continue. Continue Tessalon Perles. Gabapentin increased deferred in the setting of worsening renal function (3) Diabetes: Plan: DM2: Insulin pump held for basal/bolus hospital management Glucose checks AC/at bedtime BMP daily Fasting glucose 152, postprandials within goal range (4) GERD (gastroesophageal reflux disease): Plan: GERD: Continue home pantoprazole Continue famotidine (5) CAD (coronary artery disease): Plan: CAD, diastolic CHF, HTN: History of PCI with stent to LAD and D1 07/2015 Continue Plavix Patient on nebivolol every afternoon 10 mg [employer]. Converted to metoprolol twice daily while inpatient for formulary ARB held in the setting of FLORENCIA/ARF as above Echo 05/2020: LVEF 60-65%, grade 2 diastolic dysfunction Worsened renal function and rales. TTE: Normal LV SF, EF 55-60%. No regional wall motion abnormalities. Small pericardial effusion without evidence of tamponade. Mild pulmonary hypertension (6) Chronic diastolic CHF (congestive heart failure): Plan: As above (7) Pneumonia: Plan: As above (8) Atrial flutter with rapid ventricular response: Plan: Atrial flutter Continue Eliquis Continue beta-karsten, nebivolol convert to metoprolol as above - Adequate rate control 05/02/21 (9) Breast cancer: Plan: Breast cancer: History of, follows with Leigh Flores PA-C with Heme/Onc. Known to have metastatic lesion to the L spine, no change in size or new lesions on CTAP at admission Continue exemestane. (10) Hypothyroidism: Plan: Hypothyroidism Continue home Synthroid Plan: Code Status: FULL CODE FEN: heart healthy, DM2, low sodium diet DVT ppx: Eliquis 2.5mg BID. Held in a.m. for catheter placement. Dispo: Med/Surg with Telemetry Admission and Anticipated Discharge Date Admission Date: May 01, 2021 Subjective Patient is seen at dialysis unit. Patient reports no new symptoms but reports feeling tired. She has no new complaints. Review of Systems Review of Systems: All systems reviewed & are unremarkable except as noted in HPI & below Physical Exam Physical Exam: General: A&Ox3. NAD. Cooperative. Cough persists. HEENT: Atraumatic, normocephalic. Visual acuity and hearing grossly intact. Thorax: Tunneled dialysis catheter present at left upper chest, had some postoperative bleeding at site which resolved with pressure. No ongoing bleeding. Otherwise intact, no surrounding erythema/warmth/tenderness/discharge. Pulm: Continues with bilateral rales on exam, no wheezes/rhonchi. Frequent cough. Symmetrical chest rise. No increase in work of breathing. No respiratory distress. Cardiac: RRR, -mrg. Radial pulses intact and symmetrical. Abdominal: Nontender, nondistended, soft. BS present. Extremities: Warm, dry. Continues to have mild ankle edema Results & Data Results & Data ([facility]) Vital Signs (Past 12 Hours) Vital Signs Temp Pulse Pulse Resp BP BP Pulse Ox 05/06/21 12:20 88 109/66 05/06/21 12:00 87 109/66 05/06/21 11:40 84 108/59 L 05/06/21 11:31 36.6 C 73 18 146/75 H 98 05/06/21 11:20 92 H 117/64 05/06/21 11:00 81 114/55 L 05/06/21 10:40 56 L 92/54 L 05/06/21 10:23 36.5 C 55 L 05/06/21 08:06 36.3 C L 68 18 102/52 L 97 05/06/21 07:17 66 05/06/21 04:24 36.4 C L 66 18 101/62 96 05/06/21 03:04 66 PG Care Time/CCT Total # of Minutes Spent Total Time Spent with Patient: Total time spent is greater than 50% in coordination of care (as documented) at patient's floor/unit and/or counseling patient: Coding Level of Care Code 67973 Subseq Hosp Care Lvl 2 Diagnoses Acute kidney injury superimposed on CKD N17.9; N18.9 Chronic cough R05 Diabetes E11.9 GERD (gastroesophageal reflux disease) K21.9 CAD (coronary artery disease) I25.10 Chronic diastolic CHF (congestive heart failure) I50.32 Pneumonia J18.9 Laterality: right Lung location: lower lobe of lung Pneumonia type: due to unspecified organism Atrial flutter with rapid ventricular response I48.92 Breast cancer C50.919 Hypothyroidism E03.9 Hypothyroidism type: unspecified (1) Hypothyroidism Hypothyroidism type: unspecified Qualified Code(s): E03.9 - Hypothyroidism, unspecified (2) Pneumonia Laterality: right Lung location: lower lobe of lung Pneumonia type: due to unspecified organism Qualified Code(s): J18.9 - Pneumonia, unspecified organism
[2021-05-06] MEDS: DOCUSATE SODIUM 100 MG CAP PO SCH (21:17)
[2021-05-06] MEDS: PRAMIPEXOLE DIHYDROCHLO 0.25 MG TAB PO SCH (21:18)
[2021-05-06] MEDS: ATORVASTATIN 40 MG TAB PO SCH (21:19)
[2021-05-06] MEDS: FLUTICASONE/VILANTEROL 200/25MCG 14 PUFFS/INHALER INH SCH (21:20)
[2021-05-07] MEDS: LEVOTHYROXINE SODIUM 150 MCG TABLET PO SCH (05:41)
[2021-05-07] MEDS: HEPARIN 100 UNIT/ML 5ML FLUSH FLUSH PRN (05:41)
[2021-05-07 05:52] LABS: Hematocrit (blood only) 34.1 % (37-47); Hemoglobin 10.7 g/dL (12.0-16.0); Mean Corpuscular Hemoglobin 27.4 pg (25-34); Mean Corpuscular Hgb Conc 31.4 g/dL (32-36); Mean Corpuscular Volume 87.4 fL (80-100); Mean Platelet Volume 10.8 fL (7.4-10.4); Nucleated RBC # (auto) 0.07 K/uL (0-0); Nucleated RBC % (auto) 0.7 %; Platelet Count 164 K/uL (130-400); RDW Coefficient of Variation 18.4 % (11.5-14.5); RDW Standard Deviation 55.8 fL (36.4-46.3); White Blood Count 9.95 K/uL (4.8-10.8)
[2021-05-07 06:26] LABS: BUN Creatinine Ratio 14.9 (10-20); Calcium 7.3 mg/dl (8.5-10.1); Creatinine Clr Calc Pharmacy 11.4 ml/min; Est GFR (African American) 10.5 ml/min; Est GFR (Non-African American) 9.1 ml/min; Potassium 4.2 mmol/L (3.5-5.1)
[2021-05-07] MEDS: CHOLECALCIFEROL 1,000 UNITS 25 MCG TAB PO SCH (08:18)
[2021-05-07] MEDS: GABAPENTIN 100 MG CAP PO SCH ×3 (08:18→20:40)
[2021-05-07] MEDS: FAMOTIDINE 20 MG TAB PO SCH (08:18)
[2021-05-07] MEDS: predniSONE 20 MG TAB PO SCH (08:18)
[2021-05-07] MEDS: CALCITRIOL 0.25 MCG CAPSULE PO SCH (08:18)
[2021-05-07] MEDS: BENZONATATE 100 MG CAPSULE PO SCH ×3 (08:18→20:42)
[2021-05-07] MEDS: FLUTICASONE PROPIONATE NA SPR 16 GM BTL SCH (08:19)
[2021-05-07] MEDS: ISOSORBIDE MONO EXTENDED REL 60 MG TABCR PO SCH (08:19)
[2021-05-07] MEDS: METOPROLOL TARTRATE 50 MG TAB PO SCH (08:19)
[2021-05-07] MEDS: MULTIVITAMIN TAB PO SCH (08:19)
[2021-05-07] MEDS: PANTOprazole 40 MG TAB PO SCH (08:19)
[2021-05-07] MEDS: EXEMESTANE PO SCH (08:20)
[2021-05-07] MEDS: INSULIN GLARGINE SOLOSTAR 100 UNITS/ML 3 ML PEN SC SCH ×2 (08:22→20:36)
[2021-05-07] MEDS: INSULIN ASPART PER UNIT SC SCH ×4 (08:22→20:35)
[2021-05-07] MEDS: IRON SUCROSE 200 MG in 0.9 % SODIUM CHLORIDE 100 ML IV SCH (08:25)
--- NOTE | 2021-05-07 08:41 | Pharmacy Report ---
Pharmacy Glycemic Short Note 2 - Date of Service May 07, 2021 - Glycemic Short BSG Results (Last 24 hours): 05/06/21 05/06/21 05/06/21 08:40 16:48 19:54 Glucose 154 H POC Glucose 122 H 111 H 05/07/21 05/07/21 05/07/21 05:36 07:34 07:35 Glucose 72 POC Glucose 63 L* 67 L* 05/07/21 07:54 Glucose POC Glucose 70 OUTPATIENT ANTIDIABETIC REGIMEN: * Lantus 25 units SQ qAM -- recent change (pt taken off of pump d/t frequent hypoglycemia) * Previously on insulin pump: * V-Go Novolog pump * 1.25 units/hr (30 units of basal daily) * 6 units (3 clicks) with breakfast * 4 units (2 clicks) with lunch * 8 units (4 clicks) with dinner * HbA1c: 7.7% (05/01/21) ASSESSMENT: 05/07/21 * BSGs yesterday of 113, ? at lunch, 122, and 111 mg/dL, fasting BSG of 70 mg/dL this morning * Received 41 units of insulin yesterday (30 units of Lantus and 11 units of Novolog) * Appears that patient received incorrect HS Lantus dose based on ordered scale (should have received 10 units instead of 15 units) * In light of low BSG this morning, will hold Lantus this morning and plan to give with lunch (pending BSG) * 10 unit dose of Lantus was given this morning, will receive reduced basal dose compared to yesterday * Continues on prednisone 40 mg PO daily * HD yesterday 05/05/21 * BSGs better-controlled yesterday after changes to regimen; still trending up throughout the day. * Pt was NPO after midnight for perm cath insertion this morning in the OR. * No significant changes to regimen today, as pt was NPO and plans to start HD soon. * Pt continues to receive Prednisone 40mg daily, but she also has significant risk of hypoglycemia. Adjusting regimen cautiously. * Consider transitioning to daily Lantus tomorrow morning for ease of discharge. 05/04 * Ms Narvaez is an 85yo diabetic female admitted 05/01/21 with worsening cough (?pna) and FLORENCIA on CKD. * BSGs have been elevated during admission 2/2 steroids (was on SoluMedrol 40mg IV q12h, now on Prednisone 40mg daily). * Pharmacy consulted this morning to assist with glycemic mgmt. * Novolog parameters were adjusted this morning to provide additional prandial coverage, as this is where steroid-induced hyperglycemia is most pronounced. If this is insufficient in controlling BSGs, may add NPH tomorrow morning. * Adjusting regimen cautiously in the setting of FLORENCIA (SCr 5.14, baseline 3.0). Pt will be more at risk for "insulin stacking". PLAN FOR INPATIENT GLYCEMIC CONTROL: * Basal insulin * Lantus 10-15 units SC BID (see EHR for details) * Bolus insulin * NovoLog per scale ACHS or Q6hrs while NPO * Goal Range: Low 110 mg/dL - High 140 mg/dL * Correction Factor: 20 mg/dL/unit * Nutritional / Prandial insulin per carb ratio of 1 unit per 5 grams CHO consumed PLAN FOR DISCHARGE: * A1c: 7.7% * This result is likely somewhat unreliable in CKD/ESRD patients d/t interactions between the A1c analyzing technique and high levels of urea in ESRD, reduced RBC life span, iron deficiency anemia, and EPO administration. HbA1c > 7.5% in ESRD patient may overestimate the extent of hyperglycemia in ESRD patients. * Expect that pt may resume home regimen on discharge, as long as she does not report having episodes of hypoglycemia.
--- NOTE | 2021-05-07 11:38 | Nephrology Progress Note ---
Date of Service May 07, 2021 Assessment & Plan (1) Acute kidney injury superimposed on CKD: (2) End stage renal disease: (3) Anemia: (4) Chronic anticoagulation: (5) S/P dialysis catheter insertion: Plan: ESRD with new start HD. AVF is maturing but not ready for use. TDC placed by Dr. Morris 05/05. First dialysis treatment completed 05/05. Bleeding from catheter improved.. H/H stable. IV iron is being provided, day 5 of 5. Defer ROHITH therapy for now with Hgb >10. BP controlled. Volume status acceptable. Next anticipated HD treatment will be Saturday. I discussed the plan of care with staff at [facility] today. They anticipate the patient starting outpatient HD under the care of Dr. Nagel next week. There is no schedule/chair time currently. Arrangements for transportation have not been coordinated. We are awaiting confirmation of outpatient arrangements from case management at [facility]. Orders for outpatient dialysis have been provided. Hep B antibody negative. Continued calcitriol 0.25 daily. Medications appropriately dosed for kidney function. Valsartan stopped due to FLORENCIA and history of hyperkalemia. Dysnatremia improving appropriately with HD. Free water restriction reviewed. Admission and Anticipated Discharge Date Admission Date: May 01, 2021 Subjective No acute events overnight. Tolerated HD yesterday without complications. Review of Systems Review of Systems: All systems reviewed & are unremarkable except as noted in HPI & below Physical Exam Constitutional: WD/WN, vitals as above no acute distress Eyes: + anicteric sclerae ENMT: Ears: no hearing impairment Neck: normal visual inspection Respiratory: normal respiratory effort; no respiratory distress Auscultation: lungs clear to auscultation bilaterally Cardiovascular: Rate/Rhythm: regular rate and regular rhythm Heart Sounds: normal S1 and normal S2 Extremities: + vascular access device ( Right IJ tunneled dialysis catheter, dressing soaked.) and + AV fistula ( rt arm AVF with thrill and bruit.); no edema Skin: no rashes Neurologic: no focal motor deficits and not confused Psychiatric: Orientation: alert and oriented x 3 Results & Data ([facility]) Vital Signs (Past 12 Hours) Vital Signs Temp Pulse Pulse Resp BP Pulse Ox 05/07/21 07:56 46 L 05/07/21 07:12 36.4 C L 79 91/57 L 95 05/07/21 02:41 36.5 C 67 18 112/60 94 05/07/21 01:59 69 Laboratory Results Laboratory Results - last 24 hr 05/06/21 05/06/21 05/07/21 16:48 19:54 05:36 WBC 9.95 RBC 3.90 L Hgb 10.7 L Hct 34.1 L MCV 87.4 MCH 27.4 MCHC 31.4 L RDW Std Deviation 55.8 H RDW Coeff of Oj 18.4 H Plt Count 164 MPV 10.8 H Absolute Nucleated RBC 0.07 H Nucleated RBC % (auto) 0.7 Sodium Potassium Chloride Carbon Dioxide Anion Gap BUN Creatinine Est Cr Clr Drug Dosing Est GFR ( Amer) Est GFR (Non-Af Amer) BUN/Creatinine Ratio Glucose POC Glucose 122 H 111 H Calcium 05/07/21 05/07/21 05/07/21 05:36 07:34 07:35 WBC RBC Hgb Hct MCV MCH MCHC RDW Std Deviation RDW Coeff of Oj Plt Count MPV Absolute Nucleated RBC Nucleated RBC % (auto) Sodium 133 L Potassium 4.2 Chloride 96 L Carbon Dioxide 27 Anion Gap 10 BUN 63 H D Creatinine 4.22 H D Est Cr Clr Drug Dosing 11.4 Est GFR ( Amer) 10.5 Est GFR (Non-Af Amer) 9.1 BUN/Creatinine Ratio 14.9 Glucose 72 POC Glucose 63 L* 67 L* Calcium 7.3 L 05/07/21 05/07/21 07:54 11:22 WBC RBC Hgb Hct MCV MCH MCHC RDW Std Deviation RDW Coeff of Oj Plt Count MPV Absolute Nucleated RBC Nucleated RBC % (auto) Sodium Potassium Chloride Carbon Dioxide Anion Gap BUN Creatinine Est Cr Clr Drug Dosing Est GFR ( Amer) Est GFR (Non-Af Amer) BUN/Creatinine Ratio Glucose POC Glucose 70 117 H Calcium PG Care Time/CCT Total # of Minutes Spent Total Time Spent with Patient: Total time spent is greater than 50% in coordination of care (as documented) at patient's floor/unit and/or counseling patient: Coding Level of Care Code 41785 Subseq Hosp Care Lvl 3 Diagnoses Acute kidney injury superimposed on CKD N17.9; N18.9 End stage renal disease N18.6 Anemia D64.9 Chronic anticoagulation Z79.01 S/P dialysis catheter insertion Z95.828; Z99.2
[2021-05-07] MEDS ORDERED: ONDANSETRON INJ 2 MG/ML 2 ML VIAL IV PRN (11:41)
[2021-05-07] MEDS: guaiFENesin SUGAR FREE 100 MG/5 ML UDC PO PRN (12:46)
[2021-05-07] MEDS: FLUTICASONE/VILANTEROL 200/25MCG 14 PUFFS/INHALER INH SCH (20:38)
[2021-05-07] MEDS: PRAMIPEXOLE DIHYDROCHLO 0.25 MG TAB PO SCH (20:39)
[2021-05-07] MEDS: CLOPIDOGREL BISULFATE 75 MG TAB PO SCH (20:40)
[2021-05-07] MEDS: ATORVASTATIN 40 MG TAB PO SCH (20:41)
[2021-05-07] MEDS: DOCUSATE SODIUM 100 MG CAP PO SCH (20:49)
[2021-05-07] MEDS: METOPROLOL TARTRATE 25 MG TAB PO SCH (21:23)
--- NOTE | 2021-05-07 21:32 | Hospitalist Progress Note ---
Date of Service May 07, 2021 Assessment & Plan (1) Acute kidney injury superimposed on CKD: Plan: 85 yo F Hx CKD IV with a baseline creatinine of 3.2, breast cancer with metastatic lesions to the L-spine, atrial flutter on Eliquis, GERD, chronic diastolic heart failure, CAD, chronic cough admitted for acute renal failure on CKD as well as with worsening cough and suspicion for pneumonia (atypical versus aspiration related). Acute renal failure on CKD/ESRD Baseline creatinine 3.2 Recent increase in Bumex for weight gain Admitting EKG: Without peaked T waves, potassium 5.2 on admission normalized to 4.5 Creatinine acutely elevated on admission to 4.51, nonanuric Slight initial improvement initially, followed by worsening 05/03 and 05/04. Patient with hyponatremia, clinically increasing volume status, and rales. No oxygen requirement, continued poor urine output. Creatinine continued to increase, this is consistent with progression to end-stage renal disease, patient had a tunneled dialysis catheter placed 05/05 and first dialysis session was performed midday 05/05. Tolerated first session 2 hours, low flow. Total filtrate 839 mL. Patient tolerated 3 hour session on 05/06. Having nausea today. will reassess tomorrow. Outpatient dialysis being set up through [facility]. Next session: Saturday, Saturday. Received Epogen and IV iron. TTE with preserved EF, small pericardial effusion no tamponade, pHTN consistent with hx. (2) Chronic cough: Plan: Cough, post Covid inflammatory versus pneumonia CTC: Scattered tree-in-bud airspace opacities are seen throughout both lungs, greatest in the right lung base. This is increased from 11/23/2020 and likely on a chronic infectious/inflammatory basis. Clinical correlation will be required. No evidence of progressive metastatic disease in chest, abdomen, or pelvis on CT. Small volume of ascites appreciated on CT. 4 mm indeterminate right middle lobe pulmonary nodule seen, new, likely inflammatory, likely require attention at follow-up Pneumonia, hypoxia, acute on chronic cough: Acute worsening of chronic cough which have been present for several months with wheezing Concerned admission for atypical pneumonia/aspiration pneumonia/pneumonitis. Received empiric Zosyn/azithromycin. Suspect inflammatory and additional antibiotics deferred. Low threshold to continue antibiotics with anaerobe coverage if worsened or breathing does not continue to improve with concern for aspiration. No leukocytosis 2/3 COVID-19 negative, did have a positive test 04/14/2021 as outpatient for which we do not have a record Steroids converted to daily prednisone 40 mg Influenza A/B- Mycoplasma pneumonia pending - Remains on room air Diet texture easy to chew IDDSI 7, moist to meals avoiding dry/thick/pasty foods. Avoid dry scattered foods. Aspiration/reflux precautions. No ongoing need for speech to follow at this time. Continue nectar thick liquids - Patient with history of extended chronic cough and PFTs showing restrictive disease. Continue fluticasone/Vilanterol inhaler, steroids as above. On PPI and H2 karsten for reflux contribution to this, continue. Continue Tessalon Perles. Gabapentin increased deferred in the setting of worsening renal function (3) Diabetes: Plan: DM2: Insulin pump held for basal/bolus hospital management Glucose checks AC/at bedtime BMP daily Fasting glucose 152, postprandials within goal range (4) GERD (gastroesophageal reflux disease): Plan: GERD: Continue home pantoprazole Continue famotidine (5) CAD (coronary artery disease): Plan: CAD, diastolic CHF, HTN: History of PCI with stent to LAD and D1 07/2015 Continue Plavix Patient on nebivolol every afternoon 10 mg [employer]MINISTR[employer]IVE [employer]. Converted to metoprolol twice daily while inpatient for formulary ARB held in the setting of FLORENCIA/ARF as above Echo 05/2020: LVEF 60-65%, grade 2 diastolic dysfunction Worsened renal function and rales. TTE: Normal LV SF, EF 55-60%. No regional wall motion abnormalities. Small pericardial effusion without evidence of tamponade. Mild pulmonary hypertension (6) Chronic diastolic CHF (congestive heart failure): Plan: As above (7) Pneumonia: Plan: As above (8) Atrial flutter with rapid ventricular response: Plan: Atrial flutter Continue Eliquis Continue beta-karsten, nebivolol convert to metoprolol as above - Adequate rate control 05/02/21 (9) Breast cancer: Plan: Breast cancer: History of, follows with Leigh Flores PA-C with Heme/Onc. Known to have metastatic lesion to the L spine, no change in size or new lesions on CTAP at admission Continue exemestane. (10) Hypothyroidism: Plan: Hypothyroidism Continue home Synthroid Plan: Code Status: FULL CODE FEN: heart healthy, DM2, low sodium diet DVT ppx: Eliquis 2.5mg BID. Held in a.m. for catheter placement. Dispo: Med/Surg with Telemetry Admission and Anticipated Discharge Date Admission Date: May 01, 2021 Subjective Patient reports no new symptoms except for feeling fatigued and having nausea. Review of Systems Review of Systems: All systems reviewed & are unremarkable except as noted in HPI & below Physical Exam Physical Exam: General: A&Ox3. NAD. Cooperative. Cough persists. HEENT: Atraumatic, normocephalic. Visual acuity and hearing grossly intact. Thorax: Tunneled dialysis catheter present at left upper chest, had some postoperative bleeding at site which resolved with pressure. No ongoing bleeding. Otherwise intact, no surrounding erythema/warmth/tenderness/discharge. Pulm: Continues with bilateral rales on exam, no wheezes/rhonchi. Frequent cough. Symmetrical chest rise. No increase in work of breathing. No respiratory distress. Cardiac: RRR, -mrg. Radial pulses intact and symmetrical. Abdominal: Nontender, nondistended, soft. BS present. Extremities: Warm, dry. Continues to have mild ankle edema Results & Data Results & Data ([facility]) Vital Signs (Past 12 Hours) Vital Signs Temp Pulse Pulse Resp BP Pulse Ox 05/07/21 19:00 36.6 C 76 18 123/61 90 05/07/21 17:32 68 05/07/21 15:00 36.4 C L 69 18 120/69 94 05/07/21 11:45 36.4 C L 70 95/58 L 96 PG Care Time/CCT Total # of Minutes Spent Total Time Spent with Patient: Total time spent is greater than 50% in coordination of care (as documented) at patient's floor/unit and/or counseling patient: Coding Level of Care Code 81199 Subseq Hosp Care Lvl 2 Diagnoses Acute kidney injury superimposed on CKD N17.9; N18.9 Chronic cough R05 Diabetes E11.9 GERD (gastroesophageal reflux disease) K21.9 CAD (coronary artery disease) I25.10 Chronic diastolic CHF (congestive heart failure) I50.32 Pneumonia J18.9 Laterality: right Lung location: lower lobe of lung Pneumonia type: due to unspecified organism Atrial flutter with rapid ventricular response I48.92 Breast cancer C50.919 Hypothyroidism E03.9 Hypothyroidism type: unspecified Time Spent (min) 25 (1) Hypothyroidism Hypothyroidism type: unspecified Qualified Code(s): E03.9 - Hypothyroidism, unspecified (2) Pneumonia Laterality: right Lung location: lower lobe of lung Pneumonia type: due to unspecified organism Qualified Code(s): J18.9 - Pneumonia, unspecified organism
[2021-05-08] MEDS: guaiFENesin SUGAR FREE 100 MG/5 ML UDC PO PRN (01:21)
[2021-05-08] MEDS: LEVOTHYROXINE SODIUM 150 MCG TABLET PO SCH (05:50)
[2021-05-08] MEDS: HEPARIN 100 UNIT/ML 5ML FLUSH FLUSH PRN (05:51)
[2021-05-08] MEDS: GABAPENTIN 100 MG CAP PO SCH ×3 (08:19→20:41)
[2021-05-08] MEDS: PANTOprazole 40 MG TAB PO SCH (08:20)
[2021-05-08] MEDS: CALCITRIOL 0.25 MCG CAPSULE PO SCH (08:20)
[2021-05-08] MEDS: FAMOTIDINE 20 MG TAB PO SCH (08:20)
[2021-05-08] MEDS: predniSONE 20 MG TAB PO SCH (08:20)
[2021-05-08] MEDS: CHOLECALCIFEROL 1,000 UNITS 25 MCG TAB PO SCH (08:21)
[2021-05-08] MEDS: MULTIVITAMIN TAB PO SCH (08:21)
[2021-05-08] MEDS: BENZONATATE 100 MG CAPSULE PO SCH ×3 (08:21→20:40)
[2021-05-08] MEDS: ISOSORBIDE MONO EXTENDED REL 60 MG TABCR PO SCH (08:21)
[2021-05-08] MEDS: FLUTICASONE PROPIONATE NA SPR 16 GM BTL SCH (08:22)
[2021-05-08] MEDS: EXEMESTANE PO SCH (08:22)
[2021-05-08] MEDS: INSULIN GLARGINE SOLOSTAR 100 UNITS/ML 3 ML PEN SC SCH ×2 (08:30→20:38)
[2021-05-08] MEDS: INSULIN ASPART PER UNIT SC SCH ×4 (08:35→20:37)
[2021-05-08] MEDS: METOPROLOL TARTRATE 25 MG TAB PO SCH ×2 (10:10→20:39)
--- NOTE | 2021-05-08 11:54 | Nephrology Progress Note ---
Date of Service May 08, 2021 Assessment & Plan (1) Acute kidney injury superimposed on CKD: (2) End stage renal disease: (3) Anemia: (4) Chronic anticoagulation: (5) S/P dialysis catheter insertion: Plan: ESRD with new start HD. AVF is maturing but not ready for use. TDC placed by Dr. Morris 05/05. First dialysis treatment completed 05/05. H/H stable. IV iron completed day 5 of 5. Defer ROHITH therapy for now with Hgb >10. BP controlled. Volume status acceptable. Orders for HD today were coordinated with the dialysis nurse. Emily is tolerating HD well. Anticipate the patient starting outpatient HD under the care of Dr. Nagel next week. There is no schedule/chair time currently. Arrangements for transportation have not been coordinated. We are awaiting confirmation of outpatient arrangements from case management at [facility]. Orders for outpatient dialysis have been provided. Hep B antibody negative. Continued calcitriol 0.25 daily. Medications appropriately dosed for kidney function. Valsartan stopped due to FLORENCIA and history of hyperkalemia. Dysnatremia improving appropriately with HD. Free water restriction reviewed. Admission and Anticipated Discharge Date Admission Date: May 01, 2021 Subjective No acute events overnight. Emily was seen prior to and during hemodialysis today. she is tolerating HD well. Review of Systems Review of Systems: All systems reviewed & are unremarkable except as noted in HPI & below Physical Exam Constitutional: WD/WN, vitals as above no acute distress Eyes: + anicteric sclerae ENMT: Ears: no hearing impairment Neck: normal visual inspection Respiratory: normal respiratory effort; no respiratory distress Auscultation: lungs clear to auscultation bilaterally Cardiovascular: Rate/Rhythm: regular rate and regular rhythm Heart Sounds: normal S1 and normal S2 Extremities: + vascular access device and + AV fistula; no edema Skin: no rashes Neurologic: no focal motor deficits and not confused Psychiatric: Orientation: alert and oriented x 3 Results & Data ([facility]) Vital Signs (Past 12 Hours) Vital Signs Temp Pulse Pulse Pulse Resp BP BP 05/08/21 11:20 116/54 L 05/08/21 11:00 86 128/65 05/08/21 10:40 70 108/57 L 05/08/21 10:23 69 124/58 L 05/08/21 10:13 36.4 C L 68 05/08/21 06:53 36.5 C 68 113/70 05/08/21 04:33 36.3 C L 68 18 111/63 Pulse Ox 05/08/21 11:20 05/08/21 11:00 05/08/21 10:40 05/08/21 10:23 05/08/21 10:13 05/08/21 06:53 95 05/08/21 04:33 94 Laboratory Results Laboratory Results - last 24 hr 05/07/21 05/07/21 05/08/21 16:25 20:11 07:21 POC Glucose 214 H 235 H 161 H PG Care Time/CCT Total # of Minutes Spent Total Time Spent with Patient: Total time spent is greater than 50% in coordination of care (as documented) at patient's floor/unit and/or counseling patient: Coding Level of Care Code 37023 Subseq Hosp Care Lvl 3 Diagnoses Acute kidney injury superimposed on CKD N17.9; N18.9 End stage renal disease N18.6 Anemia D64.9 Chronic anticoagulation Z79.01 S/P dialysis catheter insertion Z95.828; Z99.2
--- NOTE | 2021-05-08 15:02 | Hospitalist Progress Note ---
Date of Service May 08, 2021 Assessment & Plan (1) Acute kidney injury superimposed on CKD: Plan: 85 yo F Hx CKD IV with a baseline creatinine of 3.2, breast cancer with metastatic lesions to the L-spine, atrial flutter on Eliquis, GERD, chronic diastolic heart failure, CAD, chronic cough admitted for acute renal failure on CKD as well as with worsening cough and suspicion for pneumonia (atypical versus aspiration related). Acute renal failure on CKD/ESRD Baseline creatinine 3.2 Recent increase in Bumex for weight gain Admitting EKG: Without peaked T waves, potassium 5.2 on admission normalized to 4.5 Creatinine acutely elevated on admission to 4.51, nonanuric Slight initial improvement initially, followed by worsening 05/03 and 05/04. Patient with hyponatremia, clinically increasing volume status, and rales. No oxygen requirement, continued poor urine output. Creatinine continued to increase, this is consistent with progression to end-stage renal disease, patient had a tunneled dialysis catheter placed 05/05 and first dialysis session was performed midday 05/05. Tolerated first session 2 hours, low flow. Total filtrate 839 mL. Patient tolerated 3 hour session on 05/06 and 05/08. No longer having nausea.. Outpatient dialysis being set up through [facility]. Received Epogen and IV iron. TTE with preserved EF, small pericardial effusion no tamponade, pHTN consistent with hx. (2) Chronic cough: Plan: Cough, post Covid inflammatory versus pneumonia CTC: Scattered tree-in-bud airspace opacities are seen throughout both lungs, greatest in the right lung base. This is increased from 11/23/2020 and likely on a chronic infectious/inflammatory basis. Clinical correlation will be required. No evidence of progressive metastatic disease in chest, abdomen, or pelvis on CT. Small volume of ascites appreciated on CT. 4 mm indeterminate right middle lobe pulmonary nodule seen, new, likely inflammatory, likely require attention at follow-up Pneumonia, hypoxia, acute on chronic cough: Acute worsening of chronic cough which have been present for several months with wheezing Concerned admission for atypical pneumonia/aspiration pneumonia/pneumonitis. Received empiric Zosyn/azithromycin. Suspect inflammatory and additional antibiotics deferred. Low threshold to continue antibiotics with anaerobe coverage if worsened or breathing does not continue to improve with concern for aspiration. No leukocytosis /3 COVID-19 negative, did have a positive test 04/14/2021 as outpatient for which we do not have a record Steroids converted to daily prednisone 40 mg Influenza A/B- Mycoplasma pneumonia pending - Remains on room air Diet texture easy to chew IDDSI 7, moist to meals avoiding dry/thick/pasty foods. Avoid dry scattered foods. Aspiration/reflux precautions. No ongoing need for speech to follow at this time. Continue nectar thick liquids - Patient with history of extended chronic cough and PFTs showing restrictive disease. Continue fluticasone/Vilanterol inhaler, steroids as above. On PPI and H2 karsten for reflux contribution to this, continue. Continue Tessalon Perles. 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 Converted to metoprolol twice daily while inpatient for formulary ARB held in the setting of FLORENCIA/ARF as above Echo 05/2020: LVEF 60-65%, grade 2 diastolic dysfunction Worsened renal function and rales. TTE: Normal LV SF, EF 55-60%. No regional wall motion abnormalities. Small pericardial effusion without evidence of tamponade. Mild pulmonary hypertension (6) Chronic diastolic CHF (congestive heart failure): Plan: As above (7) Pneumonia: Plan: As above (8) Atrial flutter with rapid ventricular response: Plan: Atrial flutter Continue Eliquis Continue beta-karsten, nebivolol convert to metoprolol as above - Adequate rate control 05/02/21 (9) Breast cancer: Plan: Breast cancer: History of, follows with Leigh Flores PA-C with Heme/Onc. Known to have metastatic lesion to the L spine, no change in size or new lesions on CTAP at admission Continue exemestane. (10) Hypothyroidism: Plan: Hypothyroidism Continue home Synthroid Plan: Code Status: FULL CODE FEN: heart healthy, DM2, low sodium diet DVT ppx: Eliquis 2.5mg BID. Held in a.m. for catheter placement. Dispo: Med/Surg with Telemetry Admission and Anticipated Discharge Date Admission Date: May 01, 2021 Subjective Patient reports feeling well. She has no nausea today. She reports she tolerated her dialysis today. Review of Systems Review of Systems: All systems reviewed & are unremarkable except as noted in HPI & below Physical Exam Physical Exam: General: A&Ox3. NAD. Cooperative. Cough persists. HEENT: Atraumatic, normocephalic. Visual acuity and hearing grossly intact. Thorax: Tunneled dialysis catheter present at left upper chest. No ongoing bleeding. Otherwise intact, no surrounding erythema/warmth/tenderness/discharge. Pulm: Continues with bilateral rales on exam, no wheezes/rhonchi. Frequent cough. Symmetrical chest rise. No increase in work of breathing. No respiratory distress. Cardiac: RRR, -mrg. Radial pulses intact and symmetrical. Abdominal: Nontender, nondistended, soft. BS present. Extremities: Warm, dry. Continues to have mild ankle edema Results & Data Results & Data ([facility]) Vital Signs (Past 12 Hours) Vital Signs Temp Pulse Pulse Pulse Resp BP BP 05/08/21 13:29 36.2 C L 68 144/81 H 05/08/21 13:20 83 129/77 05/08/21 13:00 77 110/58 L 05/08/21 12:40 76 107/56 L 05/08/21 12:20 85 130/63 05/08/21 12:00 83 120/62 05/08/21 11:40 90 119/63 05/08/21 11:20 116/54 L 05/08/21 11:00 86 128/65 05/08/21 10:40 70 108/57 L 05/08/21 10:23 69 124/58 L 05/08/21 10:13 36.4 C L 68 05/08/21 08:00 68 05/08/21 06:53 36.5 C 68 113/70 05/08/21 04:33 36.3 C L 68 18 111/63 Pulse Ox 05/08/21 13:29 05/08/21 13:20 05/08/21 13:00 05/08/21 12:40 05/08/21 12:20 05/08/21 12:00 05/08/21 11:40 02/07/22 11:20 05/08/21 11:00 05/08/21 10:40 05/08/21 10:23 05/08/21 10:13 05/08/21 08:00 05/08/21 06:53 95 05/08/21 04:33 94 PG Care Time/CCT Total # of Minutes Spent Total Time Spent with Patient: Total time spent is greater than 50% in coordination of care (as documented) at patient's floor/unit and/or counseling patient: Coding Level of Care Code 69494 Subseq Hosp Care Lvl 2 Diagnoses Acute kidney injury superimposed on CKD N17.9; N18.9 Chronic cough R05 Diabetes E11.9 GERD (gastroesophageal reflux disease) K21.9 CAD (coronary artery disease) I25.10 Chronic diastolic CHF (congestive heart failure) I50.32 Pneumonia J18.9 Laterality: right Lung location: lower lobe of lung Pneumonia type: due to unspecified organism Atrial flutter with rapid ventricular response I48.92 Breast cancer C50.919 Hypothyroidism E03.9 Hypothyroidism type: unspecified (1) Pneumonia Laterality: right Lung location: lower lobe of lung Pneumonia type: due to unspecified organism Qualified Code(s): J18.9 - Pneumonia, unspecified organism (2) Hypothyroidism Hypothyroidism type: unspecified Qualified Code(s): E03.9 - Hypothyroidism, unspecified
[2021-05-08] MEDS: DOCUSATE SODIUM/SENNA 50/8.6MG TAB PO SCH (18:36)
[2021-05-08] MEDS: FLUTICASONE/VILANTEROL 200/25MCG 14 PUFFS/INHALER INH SCH (20:39)
[2021-05-08] MEDS: PRAMIPEXOLE DIHYDROCHLO 0.25 MG TAB PO SCH (20:40)
[2021-05-08] MEDS: CLOPIDOGREL BISULFATE 75 MG TAB PO SCH (20:40)
[2021-05-08] MEDS: ATORVASTATIN 40 MG TAB PO SCH (20:40)
[2021-05-08] MEDS: DOCUSATE SODIUM 100 MG CAP PO SCH (20:41)
[2021-05-09] MEDS: LEVOTHYROXINE SODIUM 150 MCG TABLET PO SCH (06:12)
[2021-05-09] MEDS: guaiFENesin SUGAR FREE 100 MG/5 ML UDC PO PRN ×2 (06:16→22:46)
[2021-05-09] MEDS: GABAPENTIN 100 MG CAP PO SCH ×3 (08:07→21:00)
[2021-05-09] MEDS: DOCUSATE SODIUM/SENNA 50/8.6MG TAB PO SCH (08:08)
[2021-05-09] MEDS: METOPROLOL TARTRATE 25 MG TAB PO SCH ×2 (08:08→20:58)
[2021-05-09] MEDS: FAMOTIDINE 20 MG TAB PO SCH (08:09)
[2021-05-09] MEDS: ISOSORBIDE MONO EXTENDED REL 60 MG TABCR PO SCH (08:09)
[2021-05-09] MEDS: predniSONE 20 MG TAB PO SCH (08:09)
[2021-05-09] MEDS: CHOLECALCIFEROL 1,000 UNITS 25 MCG TAB PO SCH (08:10)
[2021-05-09] MEDS: PANTOprazole 40 MG TAB PO SCH (08:10)
[2021-05-09] MEDS: BENZONATATE 100 MG CAPSULE PO SCH ×3 (08:10→21:00)
[2021-05-09] MEDS: CALCITRIOL 0.25 MCG CAPSULE PO SCH (08:11)
[2021-05-09] MEDS: MULTIVITAMIN TAB PO SCH (08:11)
[2021-05-09] MEDS: EXEMESTANE PO SCH (08:12)
[2021-05-09] MEDS: INSULIN GLARGINE SOLOSTAR 100 UNITS/ML 3 ML PEN SC SCH ×2 (08:13→20:57)
[2021-05-09] MEDS: FLUTICASONE PROPIONATE NA SPR 16 GM BTL SCH (08:13)
[2021-05-09] MEDS: INSULIN ASPART PER UNIT SC SCH ×4 (08:34→20:56)
--- NOTE | 2021-05-09 09:23 | Pharmacy Report ---
Pharmacy Glycemic Short Note 2 - Date of Service May 09, 2021 - Glycemic Short BSG Results (Last 24 hours): 05/08/21 05/08/21 05/09/21 16:48 19:58 07:20 POC Glucose 182 H 221 H 174 H OUTPATIENT ANTIDIABETIC REGIMEN: * Lantus 25 units SQ qAM -- recent change (pt taken off of pump d/t frequent hypoglycemia) * Previously on insulin pump: * V-Go Novolog pump * 1.25 units/hr (30 units of basal daily) * 6 units (3 clicks) with breakfast * 4 units (2 clicks) with lunch * 8 units (4 clicks) with dinner * HbA1c: 7.7% (05/01/21) ASSESSMENT: 05/09/21 * Blood sugars adequately controlled for patient on HD, consider tightening CF if blood sugars trend up * Patient received 30 units Basal insulin yesterday, fasting 174mg/dl, will continue this dosing and change dosing range parameters so that patient only gets reduced dose if BSG < 110mg/dl * Patient continues on Prednisone 40mg PO Daily 05/07/21 * BSGs yesterday of 113, ? at lunch, 122, and 111 mg/dL, fasting BSG of 70 mg/dL this morning * Received 41 units of insulin yesterday (30 units of Lantus and 11 units of Novolog) * Appears that patient received incorrect HS Lantus dose based on ordered scale (should have received 10 units instead of 15 units) * In light of low BSG this morning, will hold Lantus this morning and plan to give with lunch (pending BSG) * 10 unit dose of Lantus was given this morning, will receive reduced basal dose compared to yesterday * Continues on prednisone 40 mg PO daily * HD yesterday 05/05/21 * BSGs better-controlled yesterday after changes to regimen; still trending up throughout the day. * Pt was NPO after midnight for perm cath insertion this morning in the OR. * No significant changes to regimen today, as pt was NPO and plans to start HD soon. * Pt continues to receive Prednisone 40mg daily, but she also has significant risk of hypoglycemia. Adjusting regimen cautiously. * Consider transitioning to daily Lantus tomorrow morning for ease of discharge. 05/04 * Ms Narvaez is an 85yo diabetic female admitted 05/01/21 with worsening cough (?pna) and FLORENCIA on CKD. * BSGs have been elevated during admission 2/2 steroids (was on SoluMedrol 40mg IV q12h, now on Prednisone 40mg daily). * Pharmacy consulted this morning to assist with glycemic mgmt. * Novolog parameters were adjusted this morning to provide additional prandial coverage, as this is where steroid-induced hyperglycemia is most pronounced. If this is insufficient in controlling BSGs, may add NPH tomorrow morning. * Adjusting regimen cautiously in the setting of FLORENCIA (SCr 5.14, baseline 3.0). Pt will be more at risk for "insulin stacking". PLAN FOR INPATIENT GLYCEMIC CONTROL: * Basal insulin * Lantus 15 units SQ AM; 15 units SQ HS (10 units for BSG < 110mg/dl) * Bolus insulin * NovoLog per scale ACHS or Q6hrs while NPO * Goal Range: Low 110 mg/dL - High 140 mg/dL * Correction Factor: 20 mg/dL/unit * Nutritional / Prandial insulin per carb ratio of 1 unit per 5 grams CHO consumed PLAN FOR DISCHARGE: * A1c: 7.7% * This result is likely somewhat unreliable in CKD/ESRD patients d/t interactions between the A1c analyzing technique and high levels of urea in ESRD, reduced RBC life span, iron deficiency anemia, and EPO administration. HbA1c > 7.5% in ESRD patient may overestimate the extent of hyperglycemia in ESRD patients. * Expect that pt may resume home regimen on discharge, as long as she does not report having episodes of hypoglycemia.
--- NOTE | 2021-05-09 10:00 | Nephrology Progress Note ---
Date of Service May 09, 2021 Assessment & Plan (1) Acute kidney injury superimposed on CKD: (2) End stage renal disease: (3) Anemia: (4) Chronic anticoagulation: (5) S/P dialysis catheter insertion: Plan: ESRD on HD. AVF is maturing but not ready for use. TDC placed by Dr. Morris 05/05. First dialysis treatment completed 05/05. H/H stable. IV iron completed day 5 of 5. Defer ROHITH therapy for now with Hgb >10. BP controlled. Volume status acceptable. Next anticipated HD tomorrow. Continued calcitriol 0.25 daily. Medications appropriately dosed for kidney function. Valsartan stopped due to FLORENCIA and history of hyperkalemia. Dysnatremia improving appropriately with HD. Admission and Anticipated Discharge Date Admission Date: May 01, 2021 Subjective No acute events overnight. No complaints this AM. Tolerated HD yesterday without complications. Review of Systems Review of Systems: All systems reviewed & are unremarkable except as noted in HPI & below Physical Exam Constitutional: WD/WN, vitals as above no acute distress Eyes: + anicteric sclerae ENMT: Ears: no hearing impairment Neck: normal visual inspection Respiratory: normal respiratory effort; no respiratory distress Auscultation: lungs clear to auscultation bilaterally Cardiovascular: Rate/Rhythm: regular rate and regular rhythm Heart Sounds: normal S1 and normal S2 Extremities: + vascular access device and + AV fistula; no edema Skin: no rashes Neurologic: no focal motor deficits and not confused Psychiatric: Orientation: alert and oriented x 3 Results & Data ([facility]) Vital Signs (Past 12 Hours) Vital Signs Temp Pulse Pulse Pulse Resp BP Pulse Ox 05/09/21 07:28 75 05/09/21 07:27 36.6 C 74 18 126/70 91 05/09/21 03:11 36.6 C 77 18 118/58 L 95 05/09/21 02:07 74 05/08/21 23:00 36.3 C L 74 16 116/55 L 95 Laboratory Results Laboratory Results - last 24 hr 05/08/21 05/08/21 05/09/21 16:48 19:58 07:20 POC Glucose 182 H 221 H 174 H PG Care Time/CCT Total # of Minutes Spent Total Time Spent with Patient: Total time spent is greater than 50% in coordination of care (as documented) at patient's floor/unit and/or counseling patient: Coding Level of Care Code 87333 Subseq Hosp Care Lvl 2 Diagnoses Acute kidney injury superimposed on CKD N17.9; N18.9 End stage renal disease N18.6 Anemia D64.9 Chronic anticoagulation Z79.01 S/P dialysis catheter insertion Z95.828; Z99.2
[2021-05-09] MEDS: ATORVASTATIN 40 MG TAB PO SCH (20:58)
[2021-05-09] MEDS: PRAMIPEXOLE DIHYDROCHLO 0.25 MG TAB PO SCH (20:59)
[2021-05-09] MEDS: CLOPIDOGREL BISULFATE 75 MG TAB PO SCH (20:59)
[2021-05-09] MEDS: DOCUSATE SODIUM 100 MG CAP PO SCH (21:00)
[2021-05-09] MEDS: FLUTICASONE/VILANTEROL 200/25MCG 14 PUFFS/INHALER INH SCH (21:00)
--- NOTE | 2021-05-09 21:03 | Hospitalist Progress Note ---
Date of Service May 09, 2021 Assessment & Plan (1) Acute kidney injury superimposed on CKD: Plan: 85 yo F Hx CKD IV with a baseline creatinine of 3.2, breast cancer with metastatic lesions to the L-spine, atrial flutter on Eliquis, GERD, chronic diastolic heart failure, CAD, chronic cough admitted for acute renal failure on CKD as well as with worsening cough and suspicion for pneumonia (atypical versus aspiration related). Acute renal failure on CKD/ESRD Baseline creatinine 3.2 Recent increase in Bumex for weight gain Admitting EKG: Without peaked T waves, potassium 5.2 on admission normalized to 4.5 Creatinine acutely elevated on admission to 4.51, nonanuric Slight initial improvement initially, followed by worsening 05/03 and 05/04. Patient with hyponatremia, clinically increasing volume status, and rales. No oxygen requirement, continued poor urine output. Creatinine continued to increase, this is consistent with progression to end-stage renal disease, patient had a tunneled dialysis catheter placed 05/05 and first dialysis session was performed midday 05/05. Tolerated first session 2 hours, low flow. Total filtrate 839 mL. Patient tolerated 3 hour session on 05/06 and 05/08. No longer having nausea.. Outpatient dialysis being set up through [facility]. working on placement. Ordered PT/OT recommend rehab. Received Epogen and IV iron. TTE with preserved EF, small pericardial effusion no tamponade, pHTN consistent with hx. (2) Chronic cough: Plan: Cough, post Covid inflammatory versus pneumonia CTC: Scattered tree-in-bud airspace opacities are seen throughout both lungs, greatest in the right lung base. This is increased from 11/23/2020 and likely on a chronic infectious/inflammatory basis. Clinical correlation will be required. No evidence of progressive metastatic disease in chest, abdomen, or pelvis on CT. Small volume of ascites appreciated on CT. 4 mm indeterminate right middle lobe pulmonary nodule seen, new, likely inflammatory, likely require attention at follow-up Pneumonia, hypoxia, acute on chronic cough: Acute worsening of chronic cough which have been present for several months with wheezing Concerned admission for atypical pneumonia/aspiration pneumonia/pneumonitis. Received empiric Zosyn/azithromycin. Suspect inflammatory and additional antibiotics deferred. Low threshold to continue antibiotics with anaerobe coverage if worsened or breathing does not continue to improve with concern for aspiration. No leukocytosis 2/3 COVID-19 negative, did have a positive test 04/14/2021 as outpatient for which we do not have a record Steroids converted to daily prednisone 40 mg Influenza A/B- Mycoplasma pneumonia pending - Remains on room air Diet texture easy to chew IDDSI 7, moist to meals avoiding dry/thick/pasty foods. Avoid dry scattered foods. Aspiration/reflux precautions. No ongoing need for speech to follow at this time. Continue nectar thick liquids - Patient with history of extended chronic cough and PFTs showing restrictive disease. Continue fluticasone/Vilanterol inhaler, steroids as above. On PPI and H2 karsten for reflux contribution to this, continue. Continue Tessalon Perles. 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 Converted to metoprolol twice daily while inpatient for formulary ARB held in the setting of FLORENCIA/ARF as above Echo 05/2020: LVEF 60-65%, grade 2 diastolic dysfunction Worsened renal function and rales. TTE: Normal LV SF, EF 55-60%. No regional wall motion abnormalities. Small pericardial effusion without evidence of tamponade. Mild pulmonary hypertension (6) Chronic diastolic CHF (congestive heart failure): Plan: As above (7) Pneumonia: Plan: As above (8) Atrial flutter with rapid ventricular response: Plan: Atrial flutter Continue Eliquis Continue beta-karsten, nebivolol convert to metoprolol as above - Adequate rate control 05/02/21 (9) Breast cancer: Plan: Breast cancer: History of, follows with Leigh Flores PA-C with Heme/Onc. Known to have metastatic lesion to the L spine, no change in size or new lesions on CTAP at admission Continue exemestane. (10) Hypothyroidism: Plan: Hypothyroidism Continue home Synthroid Plan: Code Status: FULL CODE FEN: heart healthy, DM2, low sodium diet DVT ppx: Eliquis 2.5mg BID. Held in a.m. for catheter placement. Dispo: Med/Surg with Telemetry Admission and Anticipated Discharge Date Admission Date: May 01, 2021 Subjective Patient reports feeling better. Her cough has improved. Review of Systems Review of Systems: All systems reviewed & are unremarkable except as noted in HPI & below Physical Exam Physical Exam: General: A&Ox3. NAD. Cooperative. HEENT: Atraumatic, normocephalic. Visual acuity and hearing grossly intact. Thorax: Tunneled dialysis catheter present at left upper chest. No ongoing bleeding. Otherwise intact, no surrounding erythema/warmth/tenderness/discharge. Pulm: Continues with bilateral rales on exam, no wheezes/rhonchi. Frequent cough. Symmetrical chest rise. No increase in work of breathing. No respiratory distress. Cardiac: RRR, -mrg. Radial pulses intact and symmetrical. Abdominal: Nontender, nondistended, soft. BS present. Extremities: Warm, dry. Continues to have mild ankle edema Results & Data Results & Data ([facility]) Vital Signs (Past 12 Hours) Vital Signs Temp Pulse Pulse Pulse Resp BP Pulse Ox 05/09/21 19:11 36.5 C 73 20 118/66 95 05/09/21 15:00 36.5 C 73 71 18 126/76 90 05/09/21 11:02 37.0 C 75 18 124/60 92 PG Care Time/CCT Total # of Minutes Spent Total Time Spent with Patient: Total time spent is greater than 50% in coordination of care (as documented) at patient's floor/unit and/or counseling patient: Coding Level of Care Code 96067 Subseq Hosp Care Lvl 2 Diagnoses Acute kidney injury superimposed on CKD N17.9; N18.9 Chronic cough R05 Diabetes E11.9 GERD (gastroesophageal reflux disease) K21.9 CAD (coronary artery disease) I25.10 Chronic diastolic CHF (congestive heart failure) I50.32 Pneumonia J18.9 Laterality: right Lung location: lower lobe of lung Pneumonia type: due to unspecified organism Atrial flutter with rapid ventricular response I48.92 Breast cancer C50.919 Hypothyroidism E03.9 Hypothyroidism type: unspecified (1) Pneumonia Laterality: right Lung location: lower lobe of lung Pneumonia type: due to unspecified organism Qualified Code(s): J18.9 - Pneumonia, unspecified organism (2) Hypothyroidism Hypothyroidism type: unspecified Qualified Code(s): E03.9 - Hypothyroidism, unspecified
[2021-05-10] MEDS: LEVOTHYROXINE SODIUM 150 MCG TABLET PO SCH (05:45)
[2021-05-10 06:33] LABS: Hematocrit (blood only) 34.5 % (37-47); Hemoglobin 10.8 g/dL (12.0-16.0); Mean Corpuscular Hemoglobin 27.7 pg (25-34); Mean Corpuscular Hgb Conc 31.3 g/dL (32-36); Mean Corpuscular Volume 88.5 fL (80-100); Mean Platelet Volume 11.4 fL (7.4-10.4); Nucleated RBC % (auto) 0.7 %; Platelet Count 176 K/uL (130-400); RDW Coefficient of Variation 19.4 % (11.5-14.5); White Blood Count 13.69 K/uL (4.8-10.8)
[2021-05-10 06:47] LABS: Albumin Level 3.5 gm/dl (3.4-5.0); BUN Creatinine Ratio 14.6 (10-20); Calcium 7.8 mg/dl (8.5-10.1); Creatinine Clr Calc Pharmacy 10.3 ml/min; Est GFR (African American) 9.3 ml/min; Phosphorus 5.3 mg/dl (2.5-4.9); Potassium 4.5 mmol/L (3.5-5.1)
--- NOTE | 2021-05-10 07:22 | Hospitalist Progress Note ---
Date of Service May 10, 2021 Assessment & Plan (1) Acute kidney injury superimposed on CKD: Plan: 85 yo F Hx CKD IV with a baseline creatinine of 3.2, breast cancer with metastatic lesions to the L-spine, atrial flutter on Eliquis, GERD, chronic diastolic heart failure, CAD, chronic cough admitted for acute renal failure on CKD as well as with worsening cough and suspicion for pneumonia (atypical versus aspiration related). Acute renal failure on CKD/ESRD Baseline creatinine 3.2 Recent increase in Bumex for weight gain Admitting EKG: Without peaked T waves, potassium 5.2 on admission normalized to 4.5 Creatinine acutely elevated on admission to 4.51, nonanuric Slight initial improvement initially, followed by worsening 05/03 and 05/04. Patient with hyponatremia, clinically increasing volume status, and rales. No oxygen requirement, continued poor urine output. Creatinine continued to increase, this is consistent with progression to end-stage renal disease, patient had a tunneled dialysis catheter placed 05/05 and first dialysis session was performed midday 05/05. Tolerated first session 2 hours, low flow. Total filtrate 839 mL. Patient tolerated 3 hour session on 05/06, 05/08 and 05/10. No longer having nausea.. Outpatient dialysis being set up through [facility]. working on placement. Ordered PT/OT recommend rehab. Received Epogen and IV iron. TTE with preserved EF, small pericardial effusion no tamponade, pHTN consistent with hx. (2) Chronic cough: Plan: Cough, post Covid inflammatory versus pneumonia CTC: Scattered tree-in-bud airspace opacities are seen throughout both lungs, greatest in the right lung base. This is increased from 11/23/2020 and likely on a chronic infectious/inflammatory basis. Clinical correlation will be required. No evidence of progressive metastatic disease in chest, abdomen, or pelvis on CT. Small volume of ascites appreciated on CT. 4 mm indeterminate right middle lobe pulmonary nodule seen, new, likely inflammatory, likely require attention at follow-up Pneumonia, hypoxia, acute on chronic cough: Acute worsening of chronic cough which have been present for several months w ith wheezing Concerned admission for atypical pneumonia/aspiration pneumonia/pneumonitis. Received empiric Zosyn/azithromycin. Suspect inflammatory and additional antibiotics deferred. Low threshold to continue antibiotics with anaerobe coverage if worsened or breathing does not continue to improve with concern for aspiration. No leukocytosis 2/ COVID-19 negative, did have a positive test 04/14/2021 as outpatient for which we do not have a record Steroids converted to daily prednisone 40 mg Influenza A/B- Mycoplasma pneumonia pending - Remains on room air Diet texture easy to chew IDDSI 7, moist to meals avoiding dry/thick/pasty foods. Avoid dry scattered foods. Aspiration/reflux precautions. No ongoing need for speech to follow at this time. Continue nectar thick liquids - Patient with history of extended chronic cough and PFTs showing restrictive disease. Continue fluticasone/Vilanterol inhaler, steroids as above. On PPI and H2 karsten for reflux contribution to this, continue. Continue Tessalon Perles. Gabapentin increased deferred in the setting of worsening renal function (3) Diabetes: Plan: DM2: Insulin pump held for basal/bolus hospital management Glucose checks AC/at bedtime BMP daily Fasting glucose 152, postprandials within goal range (4) GERD (gastroesophageal reflux disease): Plan: GERD: Continue home pantoprazole Continue famotidine (5) CAD (coronary artery disease): Plan: CAD, diastolic CHF, HTN: History of PCI with stent to LAD and D1 07/2015 Continue Plavix Patient on nebivolol every afternoon 10 mg [employer]. Converted to metoprolol twice daily while inpatient for formulary ARB held in the setting of FLORENCIA/ARF as above Echo 05/2020: LVEF 60-65%, grade 2 diastolic dysfunction Worsened renal function and rales. TTE: Normal LV SF, EF 55-60%. No regional wall motion abnormalities. Small pericardial effusion without evidence of tamponade. Mild pulmonary hypertension (6) Chronic diastolic CHF (congestive heart failure): Plan: As above (7) Pneumonia: Plan: As above (8) Atrial flutter with rapid ventricular response: Plan: Atrial flutter Continue Eliquis Continue beta-karsten, nebivolol convert to metoprolol as above - Adequate rate control 05/02/21 (9) Breast cancer: Plan: Breast cancer: History of, follows with Leigh Flores PA-C with Heme/Onc. Known to have metastatic lesion to the L spine, no change in size or new lesions on CTAP at admission Continue exemestane. (10) Hypothyroidism: Plan: Hypothyroidism Continue home Synthroid Plan: Code Status: FULL CODE FEN: heart healthy, DM2, low sodium diet DVT ppx: Eliquis 2.5mg BID. Held in a.m. for catheter placement. Dispo: Med/Surg with Telemetry Admission and Anticipated Discharge Date Admission Date: May 01, 2021 Subjective 85 yo female reports feeling well. She has no new complaints. updated daughter in law. Review of Systems Review of Systems: All systems reviewed & are unremarkable except as noted in HPI & below Physical Exam Physical Exam: General: A&Ox3. NAD. Cooperative. HEENT: Atraumatic, normocephalic. Visual acuity and hearing grossly intact. Thorax: Tunneled dialysis catheter present at left upper chest. No ongoing bleeding. Otherwise intact, no surrounding erythema/warmth/tenderness/discharge. Pulm: Continues with bilateral rales on exam, no wheezes/rhonchi. Frequent cough. Symmetrical chest rise. No increase in work of breathing. No respiratory distress. Cardiac: RRR, -mrg. Radial pulses intact and symmetrical. Abdominal: Nontender, nondistended, soft. BS present. Extremities: Warm, dry. Continues to have mild ankle edema Results & Data Results & Data ([facility]) Vital Signs (Past 12 Hours) Vital Signs Temp Pulse Pulse Pulse Resp BP Pulse Ox 05/10/21 07:05 36.3 C L 77 18 121/73 95 05/10/21 04:33 75 20 143/76 H 97 05/09/21 23:29 97 H 05/09/21 22:48 36.3 C L 74 20 122/72 96 PG Care Time/CCT Total # of Minutes Spent Total Time Spent with Patient: Total time spent is greater than 50% in coordination of care (as documented) at patient's floor/unit and/or counseling patient: Coding Level of Care Code 49545 Subseq Hosp Care Lvl 2 Diagnoses Acute kidney injury superimposed on CKD N17.9; N18.9 Chronic cough R05 Diabetes E11.9 GERD (gastroesophageal reflux disease) K21.9 CAD (coronary artery disease) I25.10 Chronic diastolic CHF (congestive heart failure) I50.32 Pneumonia J18.9 Laterality: right Lung location: lower lobe of lung Pneumonia type: due to unspecified organism Atrial flutter with rapid ventricular response I48.92 Breast cancer C50.919 Hypothyroidism E03.9 Hypothyroidism type: unspecified Time Spent (min) 25 (1) Hypothyroidism Hypothyroidism type: unspecified Qualified Code(s): E03.9 - Hypothyroidism, unspecified (2) Pneumonia Laterality: right Lung location: lower lobe of lung Pneumonia type: due to unspecified organism Qualified Code(s): J18.9 - Pneumonia, unspecified organism
[2021-05-10] MEDS: INSULIN ASPART PER UNIT SC SCH ×4 (08:27→20:20)
[2021-05-10] MEDS: FLUTICASONE PROPIONATE NA SPR 16 GM BTL SCH (08:28)
[2021-05-10] MEDS: INSULIN GLARGINE SOLOSTAR 100 UNITS/ML 3 ML PEN SC SCH ×2 (08:28→20:22)
[2021-05-10] MEDS: PANTOprazole 40 MG TAB PO SCH (08:29)
[2021-05-10] MEDS: GABAPENTIN 100 MG CAP PO SCH ×3 (08:29→20:24)
[2021-05-10] MEDS: ISOSORBIDE MONO EXTENDED REL 60 MG TABCR PO SCH (08:29)
[2021-05-10] MEDS: MULTIVITAMIN TAB PO SCH (08:29)
[2021-05-10] MEDS: CHOLECALCIFEROL 1,000 UNITS 25 MCG TAB PO SCH (08:29)
[2021-05-10] MEDS: EXEMESTANE PO SCH (08:29)
[2021-05-10] MEDS: predniSONE 20 MG TAB PO SCH (08:29)
[2021-05-10] MEDS: METOPROLOL TARTRATE 25 MG TAB PO SCH ×2 (08:30→20:23)
[2021-05-10] MEDS: DOCUSATE SODIUM/SENNA 50/8.6MG TAB PO SCH (08:30)
[2021-05-10] MEDS: CALCITRIOL 0.25 MCG CAPSULE PO SCH (08:30)
[2021-05-10] MEDS: BENZONATATE 100 MG CAPSULE PO SCH ×3 (08:30→20:21)
[2021-05-10] MEDS: FAMOTIDINE 20 MG TAB PO SCH (08:30)
--- NOTE | 2021-05-10 10:30 | Nephrology Progress Note ---
Date of Service May 10, 2021 Assessment & Plan (1) Acute kidney injury superimposed on CKD: (2) End stage renal disease: (3) Anemia: (4) Chronic anticoagulation: (5) S/P dialysis catheter insertion: Plan: ESRD on HD. AVF is maturing but not ready for use. TDC placed by Dr. Morris 05/05. First dialysis treatment completed 05/05. H/H stable. IV iron completed day 5 of 5. Defer ROHITH therapy for now with Hgb >10. Orders for HD today entered into EMR and reviewed with HD nurse. BP controlled. Volume status acceptable. Continued calcitriol 0.25 daily. Medications appropriately dosed for kidney function. Valsartan stopped due to FLORENCIA and history of hyperkalemia. Possible discharge to rehab pending. Admission and Anticipated Discharge Date Admission Date: May 01, 2021 Subjective No acute events overnight. No complaints this AM. Patient was seen prior to hemodialysis. I discussed the plan of care with Dr. Aquino this AM. Review of Systems Review of Systems: All systems reviewed & are unremarkable except as noted in HPI & below Physical Exam Constitutional: WD/WN, vitals as above no acute distress Eyes: + anicteric sclerae ENMT: Ears: no hearing impairment Neck: normal visual inspection Respiratory: normal respiratory effort; no respiratory distress Auscultation: lungs clear to auscultation bilaterally Cardiovascular: Rate/Rhythm: regular rate and regular rhythm Heart Sounds: normal S1 and normal S2 Extremities: + vascular access device and + AV fistula; no edema Skin: no rashes Neurologic: no focal motor deficits and not confused Psychiatric: Orientation: alert and oriented x 3 Results & Data ([facility]) Vital Signs (Past 12 Hours) Vital Signs Temp Pulse Pulse Pulse Resp BP Pulse Ox 05/10/21 07:05 36.3 C L 77 18 121/73 95 05/10/21 04:33 75 20 143/76 H 97 05/09/21 23:29 97 H 05/09/21 22:48 36.3 C L 74 20 122/72 96 Laboratory Results Laboratory Results - last 24 hr 05/09/21 05/09/21 05/09/21 11:12 16:25 20:09 WBC RBC Hgb Hct MCV MCH MCHC RDW Std Deviation RDW Coeff of Oj Plt Count MPV Absolute Nucleated RBC Nucleated RBC % (auto) Sodium Potassium Chloride Carbon Dioxide Anion Gap BUN Creatinine Est Cr Clr Drug Dosing Est GFR ( Amer) Est GFR (Non-Af Amer) BUN/Creatinine Ratio Glucose POC Glucose 181 H 199 H 231 H Calcium Phosphorus Albumin 05/10/21 05/10/21 05/10/21 05:41 05:41 07:35 WBC 13.69 H RBC 3.90 L Hgb 10.8 L Hct 34.5 L MCV 88.5 MCH 27.7 MCHC 31.3 L RDW Std Deviation 57.0 H RDW Coeff of Oj 19.4 H Plt Count 176 MPV 11.4 H Absolute Nucleated RBC 0.10 H Nucleated RBC % (auto) 0.7 Sodium 133 L Potassium 4.5 Chloride 98 Carbon Dioxide 25 Anion Gap 10 BUN 68 H Creatinine 4.67 H* Est Cr Clr Drug Dosing 10.3 Est GFR ( Amer) 9.3 Est GFR (Non-Af Amer) 8.0 BUN/Creatinine Ratio 14.6 Glucose 115 H POC Glucose 135 H Calcium 7.8 L Phosphorus 5.3 H Albumin 3.5 PG Care Time/CCT Total # of Minutes Spent Total Time Spent with Patient: Total time spent is greater than 50% in coordination of care (as documented) at patient's floor/unit and/or counseling patient: Coding Level of Care Code 18883 Subseq Hosp Care Lvl 3 Diagnoses Acute kidney injury superimposed on CKD N17.9; N18.9 End stage renal disease N18.6 Anemia D64.9 Chronic anticoagulation Z79.01 S/P dialysis catheter insertion Z95.828; Z99.2
[2021-05-10] MEDS: CLOPIDOGREL BISULFATE 75 MG TAB PO SCH (20:21)
[2021-05-10] MEDS: ATORVASTATIN 40 MG TAB PO SCH (20:23)
[2021-05-10] MEDS: FLUTICASONE/VILANTEROL 200/25MCG 14 PUFFS/INHALER INH SCH (20:23)
[2021-05-10] MEDS: PRAMIPEXOLE DIHYDROCHLO 0.25 MG TAB PO SCH (20:23)
[2021-05-10] MEDS: DOCUSATE SODIUM 100 MG CAP PO SCH (20:24)
[2021-05-11] MEDS: LEVOTHYROXINE SODIUM 150 MCG TABLET PO SCH (06:13)
[2021-05-11] MEDS: HEPARIN 100 UNIT/ML 5ML FLUSH FLUSH PRN (06:16)
[2021-05-11 07:25] LABS: Eosinophils # (auto) 0.26 K/uL (0-0.5); Eosinophils % (auto) 1.8 %; Hematocrit (blood only) 34.1 % (37-47); Hemoglobin 10.7 g/dL (12.0-16.0); Immature Granulocytes # (auto) 0.02 K/uL (0.00-0.02); Immature Granulocytes % (auto) 0.1 %; Lymphocytes % (auto) 13.4 %; Mean Corpuscular Hemoglobin 28.2 pg (25-34); Mean Corpuscular Hgb Conc 31.4 g/dL (32-36); Mean Platelet Volume 10.8 fL (7.4-10.4); Neutrophils # (auto) 11.04 K/uL (1.4-6.5); Neutrophils % (auto) 77.7 %; Nucleated RBC # (auto) 0.06 K/uL (0-0); Nucleated RBC % (auto) 0.4 %; Platelet Count 153 K/uL (130-400); RDW Coefficient of Variation 20.4 % (11.5-14.5); RDW Standard Deviation 60.7 fL (36.4-46.3); Red Blood Count 3.79 M/uL (4.2-5.4); White Blood Count 14.22 K/uL (4.8-10.8)
[2021-05-11 07:46] LABS: Anisocytosis Present; Echinocytes 1+; Poikilocytosis Present; Polychromasia 1+
[2021-05-11 07:54] VITALS: O2SAT 94
[2021-05-11 07:54] LABS: Albumin Globulin Ratio 1.4 (0.9-2); Albumin Level 3.5 gm/dl (3.4-5.0); BUN Creatinine Ratio 13.8 (10-20); Calcium 7.9 mg/dl (8.5-10.1); Creatinine Clr Calc Pharmacy 13.7 ml/min; Est GFR (Non-African American) 11.2 ml/min; Globulin 2.5 gm/dl (2.5-4.0); Phosphorus 4.2 mg/dl (2.5-4.9); Potassium 4.4 mmol/L (3.5-5.1)
[2021-05-11] MEDS: PANTOprazole 40 MG TAB PO SCH (08:38)
[2021-05-11] MEDS: METOPROLOL TARTRATE 25 MG TAB PO SCH (08:38)
[2021-05-11] MEDS: BENZONATATE 100 MG CAPSULE PO SCH ×2 (08:38→12:04)
[2021-05-11] MEDS: CHOLECALCIFEROL 1,000 UNITS 25 MCG TAB PO SCH (08:38)
[2021-05-11] MEDS: FLUTICASONE PROPIONATE NA SPR 16 GM BTL SCH (08:38)
[2021-05-11] MEDS: GABAPENTIN 100 MG CAP PO SCH ×2 (08:38→12:04)
[2021-05-11] MEDS: CALCITRIOL 0.25 MCG CAPSULE PO SCH (08:38)
[2021-05-11] MEDS: DOCUSATE SODIUM/SENNA 50/8.6MG TAB PO SCH (08:38)
[2021-05-11] MEDS: FAMOTIDINE 20 MG TAB PO SCH (08:38)
[2021-05-11] MEDS: ISOSORBIDE MONO EXTENDED REL 60 MG TABCR PO SCH (08:38)
[2021-05-11] MEDS: MULTIVITAMIN TAB PO SCH (08:38)
[2021-05-11] MEDS: predniSONE 20 MG TAB PO SCH (08:38)
[2021-05-11] MEDS: EXEMESTANE PO SCH (08:39)
[2021-05-11] MEDS: INSULIN ASPART PER UNIT SC SCH ×2 (08:42→11:54)
[2021-05-11] MEDS: INSULIN GLARGINE SOLOSTAR 100 UNITS/ML 3 ML PEN SC SCH (08:42)
[2021-05-11 11:46] VITALS: TEMP 97.9
[2021-05-11 15:06] VITALS: BP 118/60; PULSE 59
--- NOTE | 2021-05-11 15:06 | Nephrology Progress Note ---
Date of Service May 11, 2021 Assessment & Plan (1) End stage renal disease: (2) Anemia: (3) Chronic anticoagulation: Plan: ESRD on HD. AVF is maturing but not ready for use. TDC placed by Dr. Morris 05/05. First dialysis treatment completed 05/05. H/H stable. IV iron completed day 5 of 5. BP controlled. Volume status acceptable. Next anticipated HD tomorrow. I reviewed plans for outpatient HD with staff at [facility] today. Emily will dialyze 3 times per week as an outpatient under the care of the Dr. Nagel. Continued calcitriol 0.25 daily. Medications appropriately dosed for kidney function. Valsartan stopped due to FLORENCIA and history of hyperkalemia. Now that the patient is on dialysis, we could revisit restarting ARB therapy in the future as needed. Patient was declined rehab at [facility]. I reviewed potential plans for discharge with Dr. Aquino this AM. Dispo uncertain at this time. Admission and Anticipated Discharge Date Admission Date: May 01, 2021 Subjective No acute events overnight. Tolerated HD well yesterday. Clearance acceptable. Volume status controlled. Review of Systems Review of Systems: All systems reviewed & are unremarkable except as noted in HPI & below Physical Exam Constitutional: WD/WN, vitals as above no acute distress Eyes: + anicteric sclerae ENMT: Ears: no hearing impairment Neck: normal visual inspection Respiratory: normal respiratory effort; no respiratory distress Auscultation: lungs clear to auscultation bilaterally Cardiovascular: Rate/Rhythm: regular rate and regular rhythm Heart Sounds: normal S1 and normal S2 Extremities: + vascular access device and + AV fistula; no edema Skin: no rashes Neurologic: no focal motor deficits and not confused Psychiatric: Orientation: alert and oriented x 3 Results & Data ([facility]) Vital Signs (Past 12 Hours) Vital Signs Temp Pulse Pulse Resp BP Pulse Ox 05/11/21 11:45 36.6 C 77 18 146/76 H 94 05/11/21 10:56 80 05/11/21 07:54 36.4 C L 84 20 130/67 94 05/11/21 03:13 36.3 C L 77 20 118/69 93 PG Care Time/CCT Total # of Minutes Spent Total Time Spent with Patient: Total time spent is greater than 50% in coordination of care (as documented) at patient's floor/unit and/or counseling patient: Coding Level of Care Code 71458 Subseq Hosp Care Lvl 3 Diagnoses End stage renal disease N18.6 Anemia D64.9 Chronic anticoagulation Z79.01
--- NOTE | 2021-05-14 23:25 | Discharge Summary ---
Date of Service May 11, 2021 Admission HPI Per Admitting Provider 85-year-old female past medical history significant for CKD IV with a baseline creatinine of 3.2, breast cancer with metastatic lesions to the L-spine, atrial flutter on Eliquis, GERD, chronic diastolic heart failure, CAD, chronic cough presented to the ER for worsening of cough. On chart review, ER provider noted that patient had had CT chest, abdomen and pelvis earlier today which showed worsening tree-in-bud opacities right greater than left lower lung valentino possibly suggestive of aspiration. It was also noted on BMP that patient's creatinine was 4.4 (baseline 3.2 in January). In the ER patient received hydrocodone's/homatroprine for cough, albuterol inhaler, and Zosyn IV. On my interview patient has difficulty speaking due to cough, and much of the history is provided by her [id number] who is at the bedside. Per [id number], Emily has a cough with speech at all times, but cough became worse today and is causing fatigue and difficulty catching her breath which is what prompted their ER visit. She is supposed to see Dr. Morris and Dr. Nagel later this week as she has had CKD IV for some time and had fistula placed in January 2021. Of note, per daughter, patient's "dry" weight is 183 pounds, and due to weight gain over the last week or so patient has been taking her Bumex twice daily instead of once daily at least for the last 3 days. She was also diagnosed with COVID-19 around April 14, but did not experience any shortness of breath or hypoxia secondary to this infection. She is COVID-19 vaccinated and has her booster. Daughter in law expressed concern today that Emily might not be safe living at home without support. She lives alone typically, but has been with her son and [id number] in [place] for the last month. Principal Diagnosis FLORENCIA on CKD Discharge Exam General: A&Ox3. NAD. Cooperative. HEENT: Atraumatic, normocephalic. Visual acuity and hearing grossly intact. Thorax: Tunneled dialysis catheter present at left upper chest. No ongoing bleeding. Otherwise intact, no surrounding erythema/warmth/tenderness/discharge. Pulm: Continues with bilateral rales on exam, no wheezes/rhonchi. Frequent cough. Symmetrical chest rise. No increase in work of breathing. No respiratory distress. Cardiac: RRR, -mrg. Radial pulses intact and symmetrical. Abdominal: Nontender, nondistended, soft. BS present. Extremities: Warm, dry. Continues to have mild ankle edema Discharge Data Allergies Allergy/AdvReac Type Severity Reaction Status Date / Time cat dander Allergy Intermediate itching Verified 05/01/21 18:44 eyes, blisters pseudoephedrine AdvReac Intermediate Hallucinati Verified 05/01/21 18:44 ons hydroxyzine AdvReac hallucinati Verified 05/02/21 17:40 ons Consultations 05/01/21 18:08 ED Decision to Admit Stat 05/01/21 20:54 Consult Nephrology Routine Consult Vascular Surgery Routine Procedures Performed Operation Date: 05/05/21 08:00 Actual Procedures p Insertion of Perm Cath, Left subclavian Vein, FLuroscopy for Positioning , Moderate Sedation [id number](Left) - Yuan Morris MD Ordered Studies 05/02/21 09:00 hemodialysis access Routine 05/05/21 07:26 EV cvc 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 Acute renal failure on CKD/ESRD Baseline creatinine 3.2 Recent increase in Bumex for weight gain Admitting EKG: Without peaked T waves, potassium 5.2 on admission normalized to 4.5 Creatinine acutely elevated on admission to 4.51, nonanuric Slight initial improvement initially, followed by worsening / and 05/04. Patient with hyponatremia, clinically increasing volume status, and rales. No oxygen requirement, continued poor urine output. Creatinine continued to increase, this is consistent with progression to end-stage renal disease, patient had a tunneled dialysis catheter placed 05/05 and first dialysis session was performed midday 05/05. Tolerated first session 2 hours, low flow. Total filtrate 839 mL. Patient tolerated 3 hour session on 05/06, 05/08 and 05/10. No longer having nausea.. Outpatient dialysis being set up through [facility]. Ordered PT/OT recommend rehab. Denied by insurance. Family agreeable to home health. will discharge. Received Epogen and IV iron. TTE with preserved EF, small pericardial effusion no tamponade, pHTN consistent with hx. (2) Chronic cough: Cough, post Covid inflammatory versus pneumonia CTC: Scattered tree-in-bud airspace opacities are seen throughout both lungs, greatest in the right lung base. This is increased from 11/23/2020 and likely on a chronic infectious/inflammatory basis. Clinical correlation will be required. No evidence of progressive metastatic disease in chest, abdomen, or pelvis on CT. Small volume of ascites appreciated on CT. 4 mm indeterminate right middle lobe pulmonary nodule seen, new, likely inflammatory, likely require attention at follow-up Pneumonia, hypoxia, acute on chronic cough: Acute worsening of chronic cough which have been present for several months with wheezing Concerned admission for atypical pneumonia/aspiration pneumonia/pneumonitis. Received empiric Zosyn/azithromycin. Suspect inflammatory and additional antibiotics deferred. Low threshold to continue antibiotics with anaerobe coverage if worsened or breathing does not continue to improve with concern for aspiration. No leukocytosis 2/3 COVID-19 negative, did have a positive test 04/14/2021 as outpatient for which we do not have a record Steroids converted to daily prednisone 40 mg Influenza A/B- Mycoplasma pneumonia pending - Remains on room air Diet texture easy to chew IDDSI 7, moist to meals avoiding dry/thick/pasty foods. Avoid dry scattered foods. Aspiration/reflux precautions. No ongoing need for speech to follow at this time. Continue nectar thick liquids - Patient with history of extended chronic cough and PFTs showing restrictive disease. Continue fluticasone/Vilanterol inhaler, steroids as above. On PPI and H2 karsten for reflux contribution to this, continue. Continue Tessalon Perles. 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 Converted to metoprolol twice daily while inpatient for formulary ARB held in the setting of FLORENCIA/ARF as above Echo 05/2020: LVEF 60-65%, grade 2 diastolic dysfunction Worsened renal function and rales. TTE: Normal LV SF, EF 55-60%. No regional wall motion abnormalities. Small pericardial effusion without evidence of tamponade. Mild pulmonary hypertension (6) Chronic diastolic CHF (congestive heart failure): As above (7) Pneumonia: As above (8) Atrial flutter with rapid ventricular response: Atrial flutter Continue Eliquis Continue beta-karsten, nebivolol convert to metoprolol as above - Adequate rate control 05/02/21 (9) Breast cancer: Breast cancer: History of, follows with Leigh Flores PA-C with Heme/Onc. Known to have metastatic lesion to the L spine, no change in size or new lesions on CTAP at admission Continue exemestane. (10) Hypothyroidism: Hypothyroidism Continue home Synthroid Code Status: FULL CODE FEN: heart healthy, DM2, low sodium diet DVT ppx: Eliquis 2.5mg BID. Held in a.m. for catheter placement. Dispo: Med/Surg with Telemetry Total Time Total Time Spent Total Time Spent (In Minutes): 32 Discharge Plan Discharge Items Patient Disposition: Home - Home Health Services Reason For Visit: INTRACTIABLE COUGH, FLORENCIA ON CKD Discharge Diagnosis: intractable cough, FLORENCIA on CKD Activity: Resume your previous activity Non-emergency contact: Primary Care Provider Call non-emergency contact if: you have any medication questions Follow-up/Referrals: Tanner López MD [Primary Care Provider] - (Dr. López's office is asking for you to call them tomorrow (Sat) to make the appointment with their ticket scheduler. [phone]) Diet: Carb Consistent or DM2 and Dialysis Renal Diet Texture: Easy to Chew Addtl Attending Provider Instructions: RECOMMEND FOLLOWUP: Nephrology and Dr Morris for fistula. Followup with PCP in 1-2 weeks [facility] confirmed for tomorrow at 11:00 Pending Studies at Discharge: No Stand-Alone Forms: My Augmentra, Smoking Cessation Medications and DC Order Prescriptions: New prednisone 10 mg tablet 10 mg PO DAILY Qty: 12 RF: 0 guaifenesin 100 mg/5 mL Liquid 200 mg PO Q6H PRN (Reason: cough) Qty: 1000 RF: 0 benzonatate 100 mg Capsule 100 mg PO TID Qty: 90 RF: 0 Continued multivitamin [Multiple Vitamins] tablet 1 tab PO QAM RF: 0 fluticasone propion-salmeterol 232-14 mcg/actuation aerosol powdr breath activated 1 puffs inhalation QPM Qty: 1 RF: 0 clopidogrel 75 mg tablet 75 mg PO QPM Qty: 90 RF: 0 albuterol sulfate 90 mcg/actuation HFA aerosol inhaler 2 puffs inhalation Q4H PRN (Reason: SOB) Qty: 1 RF: 0 coenzyme Q10 100 mg capsule 100 mg PO QAM RF: 0 docusate sodium 100 mg capsule 100 mg PO HS RF: 0 exemestane 25 mg tablet 25 mg PO QAM RF: 0 isosorbide mononitrate 120 mg tablet extended release 24 hr 120 mg PO QAM Qty: 90 RF: 0 nebivolol 10 mg tablet 10 mg PO QPM RF: 0 nitroglycerin 0.4 mg tablet, sublingual 0.4 mg SL Q5M PRN (Reason: Chest Pain) Qty: 25 RF: 0 insulin aspart U-100 100 unit/mL solution See Rx Instructions subcut .COMPLEX RF: 0 denosumab 120 mg/1.7 mL (70 mg/mL) solution 120 mg subcut MONTHLY RF: 0 melatonin 5 mg capsule 10 mg PO QPM PRN (Reason: Insomnia) RF: 0 pantoprazole 40 mg tablet,delayed release (DR/EC) 40 mg PO QAM RF: 0 valsartan 40 mg tablet 40 mg PO QAM RF: 0 ketoconazole 2 % shampoo 1 applic topical DAILY PRN (Reason: ud) RF: 0 colchicine 0.6 mg tablet 0.6 mg PO BID RF: 0 febuxostat 40 mg tablet 40 mg PO QAM RF: 0 cholecalciferol (vitamin D3) 25 mcg (1,000 unit) capsule 25 mcg PO DAILY RF: 0 albuterol sulfate 1.25 mg/3 mL solution for nebulization 1.25 mg INH Q6H PRN (Reason: cough/wheeze) Qty: 90 RF: 0 atorvastatin [Lipitor] 40 mg tablet 40 mg PO QPM RF: 0 fluticasone propionate [Flonase Allergy Relief] 50 mcg/actuation spray,suspension 1 sprays INTNAS BID PRN (Reason: Nasal Congestion) RF: 0 famotidine [Acid Order Administrator (famotidine)] 20 mg tablet 20 mg PO QAM PRN (Reason: gerd) RF: 0 Eliquis 2.5 mg Tablet 2.5 mg PO BID RF: 0 calcitriol 0.25 mcg capsule 0.25 mcg PO QAM RF: 0 gabapentin 100 mg capsule 100 mg PO TID RF: 0 Lantus Solostar U-100 Insulin 25 units subcut DAILY RF: 0 bumetanide 1 mg tablet 2 mg PO QAM RF: 0 levothyroxine 150 mcg tablet 150 mcg PO QAM RF: 0 pramipexole 0.25 mg tablet 0.25 mg PO HS RF: 0 Discharge Orders: Discharge Order (Routine); Ordered 05/11/21 Ordered By: Francis Aquino Admission Data Admit Date/Time: 05/01/21 19:39 Attending Provider: Francis Aquino Admit Provider: Julia Barnhart Primary Care Provider: Tanner López Other Providers: Peter Cruz ; Tanner Nagel ; Yuan Morris ; [facility] ; [facility] ; [place] Other Interventions: Discharge Summary Assessment (RN) Last Done: 05/11/21 15:04 Coding Level of Care Code D/C DAY MANAGEMENT >30 MINS Diagnoses Acute kidney injury superimposed on CKD N17.9; N18.9 Chronic cough R05 Diabetes E11.9 GERD (gastroesophageal reflux disease) K21.9 CAD (coronary artery disease) I25.10 Chronic diastolic CHF (congestive heart failure) I50.32 Pneumonia J18.9 Laterality: right Lung location: lower lobe of lung Pneumonia type: due to unspecified organism Atrial flutter with rapid ventricular response I48.92 Breast cancer C50.919 Hypothyroidism E03.9 Hypothyroidism type: unspecified
== END 2021-05-11 15:41 | disposition home health service (06) | DRG 673 ==
LOC: ED 17:46 → SUATTDRO 19:39 → 2N 19:39

== ENCOUNTER 2021-07-29 17:00 | Inpatient (IN) ==
[2021-07-29] MEDS ORDERED: SODIUM CHLORIDE 0.9% 1000ML 1,000 ML IV SCH (17:45)
[2021-07-29] MEDS ORDERED: SODIUM CHLORIDE 0.9% 500 ML IV SCH (17:45)
--- NOTE | 2021-07-29 17:52 | XRay Report ---
XR chest 1V portable HISTORY: 86 years-old Female weakness acute weakness COMPARISON: Chest radiograph 05/01/2021 TECHNIQUE: Portable AP view of the chest FINDINGS: The cardiac silhouette is enlarged. Left subclavian dual-lumen hemodialysis catheter and right subcla vian Ajlozf-d-Qgyn catheter is noted with distal tips in the expected location of the mid SVC. No pne umothorax, or large pleural effusion. Pulmonary vascular congestion with interstitial coarsening. Pro bable trace pleural effusions. Degenerative changes of the shoulders and spine. IMPRESSION: 1. Cardiomegaly with pulmonary edema. 2. Left subclavian hemodialysis and right-sided Dqlqes-a-Fzug catheters as above. ACT 112: Negative or not required by law. The above report was generated using voice recognition software. It may contain grammatical, syntax o r spelling errors. Electronically signed by: Quintin Burnette M.D. 07/29/2021 5:50 PM
[2021-07-29 18:54] LABS: Basophils # (auto) 0.06 K/uL (0-0.2); Basophils % (auto) 0.6 %; Eosinophils # (auto) 0.11 K/uL (0-0.5); Eosinophils % (auto) 1.1 %; Hematocrit (blood only) 27.4 % (37-47); Hemoglobin 8.4 g/dL (12.0-16.0); Immature Granulocytes # (auto) 0.06 K/uL (0.00-0.02); Immature Granulocytes % (auto) 0.6 %; Lymphocytes # (auto) 2.65 K/uL (1.2-3.4); Lymphocytes % (auto) 26.4 %; Mean Corpuscular Hemoglobin 31.3 pg (25-34); Mean Corpuscular Hgb Conc 30.7 g/dL (32-36); Mean Corpuscular Volume 102.2 fL (80-100); Mean Platelet Volume 10.5 fL (7.4-10.4); Neutrophils # (auto) 6.17 K/uL (1.4-6.5); Neutrophils % (auto) 61.3 %; Nucleated RBC # (auto) 0.06 K/uL (0-0); Nucleated RBC % (auto) 0.6 %; Platelet Count 141 K/uL (130-400); RDW Coefficient of Variation 20.1 % (11.5-14.5); RDW Standard Deviation 73.5 fL (36.4-46.3); Red Blood Count 2.68 M/uL (4.2-5.4); White Blood Count 10.05 K/uL (4.8-10.8)
--- NOTE | 2021-07-29 19:10 | CT Scan Report ---
CT head/brain wo con CLINICAL HISTORY: 86 years-old Female with AMS. Acutely altered mental status TECHNIQUE: Multiple axial CT images of the head were obtained without contrast. A dose lowering tech nique was utilized adhering to the principles of ALARA. CT DOSE: 614.27 mGy.cm COMPARISON: CT maxillofacial 11/26/2017 FINDINGS: No acute intracranial hemorrhage, midline shift, intracranial mass, hydrocephalus, territorial ischem ia or abnormal extra-axial collection. Mild involutional changes. White matter hypodensities suggest chronic microvascular ischemic disease. The calvarium is intact. Prior bilateral lens repair. The paranasal sinuses, mastoid air cells, and m iddle ear cavities are clear. IMPRESSION: No acute intracranial abnormality. ACT 112: Negative or not required by law. The above report was generated using voice recognition software. It may contain grammatical, syntax o r spelling errors. Electronically signed by: Quintin Burnette M.D. 07/29/2021 7:08 PM
[2021-07-29 19:13] LABS: Anisocytosis Present; Hypochromasia Present; Poikilocytosis Present
[2021-07-29 19:18] LABS: Alanine Aminotransferase 7 U/L (7-52); Albumin Globulin Ratio 1.2 (0.9-2); Alkaline Phosphatase 153 U/L (34-104); Anion Gap 7 (3-11); Aspartate Aminotransferase 18 U/L (13-39); BUN Creatinine Ratio 12.5 (10-20); Bilirubin,Total 1.4 mg/dl (0.2-1.0); Blood Urea Nitrogen 41 mg/dl (6-23); Calcium 9.5 mg/dl (8.5-10.1); Carbon Dioxide 29 mmol/L (21-32); Chloride 97 mmol/L (98-107); Est GFR (African American) 14.1 ml/min; Est GFR (Non-African American) 12.2 ml/min; Globulin 2.5 gm/dl (2.5-4.0); Glucose 206 mg/dl (70-99(Fasting)); Magnesium 1.9 mg/dl (1.7-2.4); Potassium 4.7 mmol/L (3.5-5.1); Sodium 133 mmol/L (136-145); Total Protein 5.5 gm/dl (6.0-8.3)
[2021-07-29 19:33] LABS: Thyroid Stimulating Hormone 20.431 uIu/ml (0.300-4.500)
[2021-07-29] MEDS ORDERED: SODIUM CHLORIDE 0.9% 1000ML 250 ML IV ONE (19:33)
[2021-07-29] MEDS ORDERED: SODIUM CHLORIDE 0.9% 250 ML IV PRN (19:55)
[2021-07-29] MEDS ORDERED: PANTOprazole 80 MG in DEXTROSE 5% 100 ML IV ONE (19:56)
[2021-07-29] MEDS ORDERED: PANTOPRAZOLE BOLUS/DRIP 1 EA IV STA (19:56)
[2021-07-29 20:04] LABS: INR 1.3 (0.9-1.1); Partial Thromboplastin Ratio 1.3; Prothrombin Time 13.9 Seconds (9.0-12.0); T4 Free Thyroxine 0.95 ng/dl (0.61-1.60)
--- NOTE | 2021-07-29 21:48 | History & Physical Report ---
Date of Service July 29, 2021 Assessment & Plan (1) Confusion and disorientation: Plan: Likely due to acute hypotension associated with upper GI bleed (2) Upper GI bleed: Plan: Upper GI bleed/relative hypotension- Admitting to the ICU for possible pressors if needed, and for site for dialysis in a.m. NPO except essential medications Continue Protonix drip begun in the ED H&H every 6 hours Patient would accept transfusion if needed, per her son Holding Eliquis, clopidogrel. Would not reverse unless persistent bleeding Consult gastroenterology (3) End-stage renal disease on hemodialysis: Plan: S/p dialysis 24 hours ago Presently with fluid overload but still oxygenating reasonably well Will likely need dialysis in the a.m. Nephrology Dr. Efren Hatch aware (4) Coronary disease: Plan: NSTEMI/CAD//atrial flutter with RVR history/atrial fibrillation/diastolic CHF- Holding all oral medications Following serial troponins, rhythm monitoring, and order complete echocardiogram (5) Atrial flutter with rapid ventricular response: Plan: See above (6) Diabetes: Plan: Hold insulin glargine ICU hyperglycemic protocol (7) NSTEMI (non-ST elevated myocardial infarction): Plan: See above (8) Atrial fibrillation: Plan: See above (9) Hyperlipidemia: Plan: Hold atorvastatin while n.p.o. History of Present Illness Chief Complaint: The patient is brought to the emergency department from home due to persistent dark stools and worsening confusion. Primary Care Provider: Tanner López MD The patient is a 86-year-old female with a past medical history including ESRD o n HD, metastatic breast cancer, CAD, atrial flutter with RVR, PAD, GERD, dysphagia to liquids and solids, gout, diabetes mellitus, pulmonary hypertension, GERD, chronic diastolic CHF, chronic aspiration pneumonia and on chronic anticoagulation. Her son who is with her in the emergency department, serves as the primary source of information, as the patient is unable to contribute to her HPI or ROS. He notes that she is a DNR/DNI, but would except pressors. Notable abnormal laboratories: Hemoglobin 8.4, hematocrit 27.4, total bilirubin 1.4, TSH 20.431, sodium 133, creatinine 3.29, glucose 206, troponin 587.6 and INR 1.3 Chest x-ray shows cardiomegaly and pulmonary edema with a left subclavian hemodialysis line and a right [id number] CT head without contrast was negative Patient was given a Protonix bolus and was started on tonics drip by the emergency department. Allergies Allergy/AdvReac Type Severity Reaction Status Date / Time cat dander Allergy Intermediate itching Verified 07/29/21 19:50 eyes, blisters pseudoephedrine AdvReac Intermediate Hallucinati Verified 07/29/21 19:50 ons hydroxyzine AdvReac Mild hallucinati Verified 07/29/21 19:50 ons Home Medications Medication Instructions Recorded Confirmed Type albuterol sulfate 1.25 mg/3 mL 1.25 mg INH Q6H PRN #90 ml 12/02/17 07/29/21 Rx solution for nebulization clopidogrel 75 mg tablet (Plavix) 75 mg PO QAM #90 tab 12/11/18 07/29/21 History fluticasone 232 mcg-salmeterol 14 1 puffs INHALATION QPM #1 ea 12/11/18 07/29/21 History mcg/actuation breath activated powdr (AirDuo RespiClick) albuterol sulfate 90 mcg/actuation 2 puffs INHALATION Q4H PRN #1 gm 02/18/19 07/29/21 History aerosol inhaler coenzyme Q10 100 mg capsule 100 mg PO QAM cap 02/18/19 07/29/21 History denosumab 120 mg/1.7 mL (70 mg/mL) 120 mg SUBCUT MONTHLY ml 02/18/19 07/29/21 History subcutaneous solution (Xgeva) docusate sodium 100 mg capsule 100 mg PO HS cap 02/18/19 07/29/21 History exemestane 25 mg tablet (Aromasin) 25 mg PO QAM tab 02/18/19 07/29/21 History isosorbide mononitrate 120 mg 120 mg PO QAM #90 tab 02/18/19 07/29/21 History tablet,extended release 24 hr nitroglycerin 0.4 mg sublingual 0.4 mg SL Q5M PRN #25 tab 02/18/19 07/29/21 History tablet pantoprazole 40 mg tablet,delayed 40 mg PO QAM 02/10/20 07/29/21 History release levothyroxine 150 mcg tablet 150 mcg PO QAM 08/23/20 07/29/21 History pramipexole 0.25 mg tablet 0.25 mg PO HS 08/23/20 07/29/21 History (Mirapex) febuxostat 40 mg tablet 40 mg PO QAM 10/05/20 07/29/21 History famotidine 20 mg tablet (Acid 2 mg PO QPM tab 07/06/21 07/29/21 History Manufacturing Tech (famotidine)) apixaban 2.5 mg tablet (Eliquis) 2.5 mg PO BID 07/29/21 07/29/21 History atorvastatin 10 mg tablet 10 mg PO HS 07/29/21 07/29/21 History benzonatate 100 mg capsule 100 mg PO TID PRN 07/29/21 07/29/21 History bumetanide 2 mg tablet 2 mg PO QAM 07/29/21 07/29/21 History colchicine 0.6 mg tablet 0.6 mg PO BID PRN 07/29/21 07/29/21 History insulin glargine 100 unit/mL (3 25 unit SUBCUT DAILY 07/29/21 07/29/21 History mL) subcutaneous pen (Lantus Solostar U-100 Insulin) melatonin 10 mg capsule 10 mg PO HS PRN 07/29/21 07/29/21 History Past Med/Surg History Medical History (Updated 07/30/21 @ 04:38 by Peter Cruz MD) Aspiration, chronic pulmonary Following with ENT and GI, 07/2020 hospitalization for PNA following EGD suspected aspiration Asthma Controlled per pt, rescue inhaler use last several mos ago Atrial fibrillation Dx 2017-on anticoagulation-follow with [facility] Breast cancer 2005- left mastectomy+ chemo and XRT with recurrence of breast CA to RT 4th & 5th ribs (oral/injectable medication) Left upper extremity restriction per pt CAD (coronary artery disease) 2 stents-LAD and D1 HORACE, July 2015. Follows with [facility]. Carotid artery stenosis, asymptomatic 70-79% stenosis of right ICA per 01/2020 carotid doppler Chronic anticoagulation Chronic diastolic (congestive) heart failure Follows with [facility], stable per note and pt-chronically sleeps in recliner Diabetes mellitus IDDM, controlled and stable per pt Dysphagia Occasional dysphagia and coughing with swallowing pills, improved without clear cause per pt. Pt denies re-visiting recommended EGD-following with PCP End stage renal disease End-stage renal disease on hemodialysis Fistula Right arm not using at present and needs further surgery GERD (gastroesophageal reflux disease) Controlled, stable per pt Hemodialysis patient Dialysis M,W,F- [place] Using temporary cath in left shoulder Hyperlipidemia Hypertension Controlled, stable per pt Hypothyroidism Port-A-Cath in place Rt chest Pulmonary hypertension Mild per 05/04/21 ECHO- RVSP 39mmHg; follows with [facility] Rib lesion Bony metastasis per bone scan, pt states is on oral and injectable tx and following with PCP Sleep apnea No current device use Urinary leakage Surgical History History of appendectomy History of breast biopsy History of cardiac cath 2017 -2 stents-follows with [facility] History of carpal tunnel release of both wrists History of colonoscopy History of heart artery stent X 2 (2017) History of left mastectomy pt reports LUE restriction History of tonsillectomy and adenoidectomy History of total abdominal hysterectomy and bilateral salpingo-oophorectomy Family History Father Myocardial infarction Heart disease Mother Hypertension Other No family history of adverse response to anesthesia No family history of bleeding disorder Social History Smoking Status: Never smoker Second Hand Exposure: No; Hx Alcohol Use: No Hx Substance Use: No Preferred Language: Romanian Communication Ability: Effective [employer] Debeader Required: No Beliefs That Will Affect Care: None marital status: / Current Living Situation: Alone Current Living Situation Comment: FAMILY COMES MULTIPLE TIMES PER DAY current occupational status: retired 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 Physical Exam Physical Exam: The patient is intermittently awake and confused, normocephalic and atraumatic, lying in bed and in no acute distress. HEENT--PERRL, EOMI, mucous membranes and oropharynx dry. Neck--supple. No JVD. No bruits. Thyroid normal, trachea midline, no adenopathy. Heart--normal S1 and S2. No murmurs, rubs or gallops. Lungs--crackles at the bases bilaterally. No respiratory distress, no accessory muscle use. Abdomen--normal bowel sounds and soft. Nontender. Nondistended Extremities--no cyanosis or clubbing. No edema. Dermatologic--normal skin turgor, normal color, no abnormal lymph nodes, no rash. Neurologic--limited exam Rheumatologic--limited exam, moves all extremities Psychiatric--confused. Results & Data Results & Data ([facility]) Vital Signs (Past 12 Hours) Vital Signs Temp Pulse Pulse Resp BP BP Pulse Ox 07/29/21 19:26 81 18 84/40 L 85 L 07/29/21 17:42 92 07/29/21 17:23 93 07/29/21 17:22 87 27 H 95/44 L 93 07/29/21 17:04 36.7 C 89 20 85/49 L 95 Laboratory Results Laboratory Results WBC 10.05 K/uL (4.8-10.8) 07/29/21 18:30 RBC 2.68 M/uL (4.2-5.4) L 07/29/21 18:30 Hgb 7.9 g/dL (12.0-16.0) L 07/29/21 23:52 Hct 26.2 % (37-47) L 07/29/21 23:52 MCV 102.2 fL (80-100) H 07/29/21 18:30 MCH 31.3 pg (25-34) 07/29/21 18:30 MCHC 30.7 g/dL (32-36) L 07/29/21 18:30 RDW Std Deviation 73.5 fL (36.4-46.3) H 07/29/21 18:30 RDW Coeff of Oj 20.1 % (11.5-14.5) H 07/29/21 18:30 Plt Count 141 K/uL (130-400) 07/29/21 18:30 MPV 10.5 fL (7.4-10.4) H 07/29/21 18:30 Immature Gran % (Auto) 0.6 % 07/29/21 18:30 Neut % (Auto) 61.3 % 07/29/21 18: Lymph % (Auto) 26.4 % 07/29/21 18:30 Dixon % (Auto) 10.0 % 07/29/21 18:30 Eos % (Auto) 1.1 % 07/29/21 18: Baso % (Auto) 0.6 % 07/29/21 18:30 Neut # (Auto) 6.17 K/uL (1.4-6.5) 07/29/21 18: Lymph # (Auto) 2.65 K/uL (1.2-3.4) 07/29/21 18: Dixon # (Auto) 1.00 K/uL (0.11-0.59) H 07/29/21 18:30 Eos # (Auto) 0.11 K/uL (0-0.5) 07/29/21 18: Baso # (Auto) 0.06 K/uL (0-0.2) 07/29/21 18: Immature Gran # (Auto) 0.06 K/uL (0.00-0.02) H 07/29/21 18: Absolute Nucleated RBC 0.06 K/uL (0-0) H 07/29/21 18: Nucleated RBC % (auto) 0.6 % 07/29/21 18:30 Hypochromasia Present 07/29/21 18: Poikilocytosis Present 07/29/21 18: Anisocytosis Present 07/29/21 18: PT 13.9 Seconds (9.0-12.0) H 07/29/21 18:30 INR 1.3 (0.9-1.1) H 07/29/21 18: APTT 35.0 Seconds (21.0-31.0) H 07/29/21 18: PTT Ratio 1.3 07/29/21 18:30 Sodium 133 mmol/L (136-145) L 07/29/21 18: Potassium 4.7 mmol/L (3.5-5.1) 07/29/21 18: Chloride 97 mmol/L (98-107) L 07/29/21 18:30 Carbon Dioxide 29 mmol/L (21-32) 07/29/21 18:30 Anion Gap 7 (3-11) 07/29/21 18:30 BUN 41 mg/dl (6-23) H 07/29/21 18:30 Creatinine 3.29 mg/dl (0.6-1.2) H 07/29/21 18:30 Est Cr Clr Drug Dosing Not Reportable 07/29/21 18:30 Est GFR ( Amer) 14.1 ml/min 07/29/21 18:30 Est GFR (Non-Af Amer) 12.2 ml/min 07/29/21 18:30 BUN/Creatinine Ratio 12.5 (10-20) 07/29/21 18:30 Glucose 206 mg/dl (70-99(Fasting)) H 07/29/21 18:30 POC Glucose 198 mg/dl (70-99) H 07/30/21 00:57 Lactate 1.9 mmol/L (0.4-2.0) 07/29/21 18:30 Calcium 9.5 mg/dl (8.5-10.1) 07/29/21 18:30 Magnesium 1.9 mg/dl (1.7-2.4) 07/29/21 18:30 Total Bilirubin 1.4 mg/dl (0.2-1.0) H 07/29/21 18:30 AST 18 U/L (13-39) 07/29/21 18:30 ALT 7 U/L (7-52) 07/29/21 18:30 Alkaline Phosphatase 153 U/L (34-104) H 07/29/21 18:30 Ammonia 19.0 umol/L (18-72) 07/29/21 19:13 Troponin I High Sens 587.6 pg/ml (0-14) H* 07/29/21 18:30 Total Protein 5.5 gm/dl (6.0-8.3) L 07/29/21 18:30 Albumin 3.0 gm/dl (3.4-5.0) L 07/29/21 18:30 Globulin 2.5 gm/dl (2.5-4.0) 07/29/21 18:30 Albumin/Globulin Ratio 1.2 (0.9-2) 07/29/21 18:30 Procalcitonin 0.86 ng/ml (0-0.5) H 07/29/21 23:52 TSH 20.431 uIu/ml (0.300-4.500) H 07/29/21 18:30 Free T4 0.95 ng/dl (0.61-1.60) 07/29/21 18:30 Nasal Screen MRSA (PCR) Negative (Negative) 07/29/21 23:22 SARS-CoV-2, RNA, NAAT NEGATIVE (NEGATIVE) 07/29/21 20:40 Blood Type B Positive 07/29/21 19:54 Blood Type Recheck B Positive 07/29/21 21:12 Antibody Screen NEGATIVE 07/29/21 19:54 Crossmatch See Detail 07/29/21 19:54 Impressions Chest X-Ray 07/29/21 17:33 XR chest 1V portable HISTORY: 86 years-old Female weakness acute weakness COMPARISON: Chest radiograph 05/01/2021 TECHNIQUE: Portable AP view of the chest FINDINGS: The cardiac silhouette is enlarged. Left subclavian dual-lumen hemodialysis catheter and right subclavian Qsryzv-i-Kklm catheter is noted with distal tips in the expected location of the mid SVC. No pneumothorax, or large pleural effusion. Pulmonary vascular congestion with interstitial coarsening. Probable trace pleural effusions. Degenerative changes of the shoulders and spine. IMPRESSION: 1. Cardiomegaly with pulmonary edema. 2. Left subclavian hemodialysis and right-sided [id number] catheters as above. ACT 112: Negative or not required by law. The above report was generated using voice recognition software. It may contain grammatical, syntax or spelling errors. Electronically signed by: Quintin Burnette M.D. 07/29/2021 5:[address] 07/29/21 17:33 CT head/brain wo con CLINICAL HISTORY: 86 years-old Female with AMS. Acutely altered mental status TECHNIQUE: Multiple axial CT images of the head were obtained without contrast. A dose lowering technique was utilized adhering to the principles of ALARA. CT DOSE: 614.27 mGy.cm COMPARISON: CT maxillofacial 11/26/2017 FINDINGS: No acute intracranial hemorrhage, midline shift, intracranial mass, hydrocephalus, territorial ischemia or abnormal extra-axial collection. Mild involutional changes. White matter hypodensities suggest chronic microvascular ischemic disease. The calvarium is intact. Prior bilateral lens repair. The paranasal sinuses, mastoid air cells, and middle ear cavities are clear. IMPRESSION: No acute intracranial abnormality. ACT 112: Negative or not required by law. The above report was generated using voice recognition software. It may contain grammatical, syntax or spelling errors. Electronically signed by: Quintin Burnette M.D. 07/29/2021 7:08 PM Code Status & VTE Plan Code Status DNR/DNI Per her son, patient will except pressors and transfusions VTE Prophylaxis Plan VTE Prophylaxis will be ordered: Yes PG Care Time/CCT Total # of Minutes Spent Total Time Spent with Patient: Total time spent is greater than 50% in coordination of care (as documented) at patient's floor/unit and/or counseling patient: 50 minutes Coding Level of Care Code 06512 Initial Inpt Care Lvl 3 Diagnoses End-stage renal disease on hemodialysis N18.6; Z99.2 Coronary disease I25.10 Atrial flutter with rapid ventricular response I48.92 Upper GI bleed K92.2 Diabetes E11.9 Confusion and disorientation R41.0 NSTEMI (non-ST elevated myocardial infarction) I21.4 Atrial fibrillation I48.91 Hyperlipidemia E78.5 Hyperlipidemia type: unspecified (1) Hyperlipidemia Hyperlipidemia type: unspecified Qualified Code(s): E78.5 - Hyperlipidemia, unspecified
--- NOTE | 2021-07-29 23:18 | Critical Care Consultation ---
Date of Consultation July 29, 2021 Assessment & Plan (1) Admitted to intensive care unit: Reason Critically Ill: 86-year-old female presenting with generalized weakness and fatigue with associated hypotension and acute anemia likely in the setting of upper GI bleeding requiring close hemodynamic monitoring and possible need for pressors/transfusion. NEURO - * CAM ICU: Positive * Confusion: * Likely multifactorial in the setting of acute blood loss anemia, transient hypotension, etc. * Will continue to monitor for neuro status changes while treating underlying causes. * CT head/brain wi/o acute findings. CARDIAC/VASCULAR - * Hypotension: * Per review of outpatient vascular surgery visits, patient has been relatively hypotensive for the past few months. SBPs in the 80s-100s. * Completely asymptomatic. Does note produce urine. * Will check cortisol. Consider addition of Midodrine. * Pressors if needed. * Transfuse if needed. * Hold home antihypertensive medications for now. * Monitor on telemetry. RESPIRATORY - * Chronic Cough: * Has been following with pulmonary in the outpatient setting. * Continue home Rx. * CPAP at night. GI/NUTRITION - * Likely UGIB: * Melanotic stools/Heme positive. * Protonix bolus --> gtt. * Hold home Eliquis dosing. * GI Consult. 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 * Patient still has marked diffuse pitting edema. * HD Per nephro recommendations. - * Patient is essentially anuric. ENDO - * DMII * BSGs per unit protocol. ISS --> gtt per unit policy. * Hypothyroid: * Continue home Rx dosing. HEME - * Acute blood loss anemia: * Transfuse as needed. * Concerning as this patient will likely be slightly transfusion dependent in the setting of ESRD * Consider starting Procrit ID - * Patient without fevers or other constitutional symptoms at this point. * Blood cultures pending. * CXR w/o acute infiltrative process. * Her b/l lower extremities do appear a bit red, but are not warm to touch and have apparently been this way for some time. * Will hold on antibiotic coverage for now pending cultures. LINES/IV ACCESS - * LEFT subclavian permacath * RIGHT sided a port * LEFT cephalic Endurance catheter. DVT PROPHYLAXIS - * Hold on chemoprophylaxis in the setting of UGIB * SCDs I have personally spent 32 minutes of critical care time in the direct management of this patient. This is a life/limb threatening event. This includes time spent evaluating patient, direct bedside care, chart review, placing orders, interpretation of diagnostic studies, discussion with consultants, patient, and family members, as well as other required patient management activities. This time is exclusive of all separately billable procedures, and teaching time and separate from and in addition to any other critical care service time. Thank you for allowing us to participate in the care of this patient. Please refer to my attending physician's documentation for any further recommendations. (2) Hypotension: (3) Upper GI bleed: (4) Confusion and disorientation: (5) NSTEMI (non-ST elevated myocardial infarction): (6) Atrial fibrillation: (7) Hyperlipidemia: (8) End-stage renal disease on hemodialysis: History of Present Illness Attending Physician: Peter Cruz MD History of Present Illness Patient is an 86-year-old female with a significant past medical history of coronary artery disease, hypertension, hypothyroidism, metastatic breast CA, CHF, pulmonary hypertension, end-stage renal disease on hemodialysis Saturday/Saturday/Saturday, chronic cough, and paroxysmal A. fib anticoagulated on Eliquis. Per discussion with providers and limited disorder information patient, she has had increasing weakness and fatigue over the last week. No other sequela of infectious findings including no fevers, chills, upper respiratory symptoms, productive cough, abdominal discomfort, or dysuria. Patient was noted to have a drop in her H&H on evaluation in the emergency department. Concern for upper GI bleeding with Hemoccult positive stools. Patient started on Protonix bolus followed by drip. Patient with labile blood pressures in the emergency department with possible need for addition of vasopressors to maintain appropriate MAPs. Patient will also require hemodialysis at some point during admission. Patient complains of feeling weak and tired. She otherwise denies any complaints. Allergies Allergy/AdvReac Type Severity Reaction Status Date / Time cat dander Allergy Intermediate itching Verified 07/29/21 19:50 eyes, blisters pseudoephedrine AdvReac Intermediate Hallucinati Verified 07/29/21 19:50 ons hydroxyzine AdvReac Mild hallucinati Verified 07/29/21 19:50 ons Home Medications Medication Instructions Recorded Confirmed Type albuterol sulfate 1.25 mg/3 mL 1.25 mg INH Q6H PRN #90 ml 12/02/17 07/29/21 Rx solution for nebulization clopidogrel 75 mg tablet (Plavix) 75 mg PO QAM #90 tab 12/11/18 07/29/21 History fluticasone 232 mcg-salmeterol 14 1 puffs INHALATION QPM #1 ea 12/11/18 07/29/21 History mcg/actuation breath activated powdr (AirDuo RespiClick) albuterol sulfate 90 mcg/actuation 2 puffs INHALATION Q4H PRN #1 gm 02/18/19 07/29/21 History aerosol inhaler coenzyme Q10 100 mg capsule 100 mg PO QAM cap 02/18/19 07/29/21 History denosumab 120 mg/1.7 mL (70 mg/mL) 120 mg SUBCUT MONTHLY ml 02/18/19 07/29/21 History subcutaneous solution (Xgeva) docusate sodium 100 mg capsule 100 mg PO HS cap 02/18/19 07/29/21 History exemestane 25 mg tablet (Aromasin) 25 mg PO QAM tab 02/18/19 07/29/21 History isosorbide mononitrate 120 mg 120 mg PO QAM #90 tab 02/18/19 07/29/21 History tablet,extended release 24 hr nitroglycerin 0.4 mg sublingual 0.4 mg SL Q5M PRN #25 tab 02/18/19 07/29/21 History tablet pantoprazole 40 mg tablet,delayed 40 mg PO QAM 02/10/20 07/29/21 History release levothyroxine 150 mcg tablet 150 mcg PO QAM 08/23/20 07/29/21 History pramipexole 0.25 mg tablet 0.25 mg PO HS 08/23/20 07/29/21 History (Mirapex) febuxostat 40 mg tablet 40 mg PO QAM 10/05/20 07/29/21 History famotidine 20 mg tablet (Acid 2 mg PO QPM tab 07/06/21 07/29/21 History Supervisor Byproducts (famotidine)) apixaban 2.5 mg tablet (Eliquis) 2.5 mg PO BID 07/29/21 07/29/21 History atorvastatin 10 mg tablet 10 mg PO HS 07/29/21 07/29/21 History benzonatate 100 mg capsule 100 mg PO TID PRN 07/29/21 07/29/21 History bumetanide 2 mg tablet 2 mg PO QAM 07/29/21 07/29/21 History colchicine 0.6 mg tablet 0.6 mg PO BID PRN 07/29/21 07/29/21 History insulin glargine 100 unit/mL (3 25 unit SUBCUT DAILY 07/29/21 07/29/21 History mL) subcutaneous pen (Lantus Solostar U-100 Insulin) melatonin 10 mg capsule 10 mg PO HS PRN 07/29/21 07/29/21 History Patient History Medical History (Updated 07/30/21 @ 05:10 by Kevin Lopes PA-C) Aspiration, chronic pulmonary Following with ENT and GI, 07/2020 hospitalization for PNA following EGD suspected aspiration Asthma Controlled per pt, rescue inhaler use last several mos ago Atrial fibrillation Dx 2016-on anticoagulation-follow with [facility] Breast cancer 2005- left mastectomy+ chemo and XRT with recurrence of breast CA to RT 4th & 5th ribs (oral/injectable medication) Left upper extremity restriction per pt CAD (coronary artery disease) 2 stents-LAD and D1 HORAEC, July 2015. Follows with [facility]. Carotid artery stenosis, asymptomatic 70-79% stenosis of right ICA per 01/2020 carotid doppler Chronic anticoagulation Chronic diastolic (congestive) heart failure Follows with [facility], stable per note and pt-chronically sleeps in recliner Diabetes mellitus IDDM, controlled and stable per pt Dysphagia Occasional dysphagia and coughing with swallowing pills, improved without clear cause per pt. Pt denies re-visiting recommended EGD-following with PCP End stage renal disease End-stage renal disease on hemodialysis Fistula Right arm not using at present and needs further surgery GERD (gastroesophageal reflux disease) Controlled, stable per pt Hemodialysis patient Dialysis M,W,F- [facility] Using temporary cath in left shoulder Hyperlipidemia Hypertension Controlled, stable per pt Hypothyroidism Port-A-Cath in place Rt chest Pulmonary hypertension Mild per 05/04/21 ECHO- RVSP 39mmHg; follows with [facility] Rib lesion Bony metastasis per bone scan, pt states is on oral and injectable tx and following with PCP Sleep apnea No current device use Urinary leakage Surgical History History of appendectomy History of breast biopsy History of cardiac cath 2017 -2 stents-follows with [facility] History of carpal tunnel release of both wrists History of colonoscopy History of heart artery stent X 2 (2017) History of left mastectomy pt reports LUE restriction History of tonsillectomy and adenoidectomy History of total abdominal hysterectomy and bilateral salpingo-oophorectomy Family History Father Myocardial infarction Heart disease Mother Hypertension Other No family history of adverse response to anesthesia No family history of bleeding disorder Social History Smoking Status: Never smoker Second Hand Exposure: No; Hx Alcohol Use: No Hx Substance Use: No Preferred Language: Welsh Communication Ability: Effective I[employer] Commerce Consultant Required: No Beliefs That Will Affect Care: None marital status: / Current Living Situation: Alone Current Living Situation Comment: FAMILY COMES MULTIPLE TIMES PER DAY current occupational status: retired 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 GENERAL - 86-year-old female appearing her stated age who is in no acute distress. Pleasantly confused but does offer some historical information. SKIN - Diffuse pitting edema to the upper and lower extremities throughout. HEAD - NC/AT. EYES - PERRL with EOMI bilaterally. Sclera anicteric. EARS - No deformities of external structures noted on gross examination bilaterally. NOSE - Midline and without cyanosis. MOUTH/OROPHARYNX - Without perioral cyanosis. Buccal mucosa pink and dry. NECK - Neck with FROM. Supple to palpation. No nuchal rigidity. LUNGS - Chest wall symmetric without accessory muscle use, intercostals retractions, or central cyanosis. Normal vesicular breath sounds CTA B/L. No wheezes, rales, or rhonchi appreciated. CARDIAC - RRR with S1/S2. No murmur, rubs, or gallops appreciated. ABDOMEN - Abdominal contour obese without pulsations or visible masses. BS normoactive all four quadrants. No tenderness, palpable masses, hepatosplenomegaly, or ascites noted. EXTREMITIES - Pitting edema to the upper and lower extremities. Fistula to the RUE w/ palpable thrill. No peripheral cyanosis. +2/5 radial and dorsalis pedis pulses palpated throughout. +5/5 strength noted in UE/LE bilaterally. NEUROLOGIC - Cranial nerves II through XII grossly intact. PSYCH - A&O to person, location, and general time. Confused at times with certain questions. Results & Data Results & Data ([facility]) Vital Signs (Past 12 Hours) Vital Signs Temp Pulse Pulse Resp BP BP Pulse Ox 07/29/21 22:05 96 07/29/21 22:00 80 99 07/29/21 21:30 80 20 104/46 L 100 07/29/21 21:00 80 99/47 L 100 07/29/21 20:30 76 24 107/43 L 07/29/21 20:00 79 17 07/29/21 19:30 81 98/36 L 95 07/29/21 19:26 81 18 84/40 L 85 L 07/29/21 19:23 82 L 07/29/21 18:30 82 31 H 89 L 07/29/21 18:00 82 31 H 90 07/29/21 17:51 84 31 H 90 07/29/21 17:42 92 07/29/21 17:23 93 07/29/21 17:22 87 27 H 95/44 L 93 07/29/21 17:04 36.7 C 89 20 85/49 L 95 Coding Level of Care Code Critical Care 1st 30-74 mins Diagnoses Admitted to intensive care unit Z78.9 Hypotension I95.9 Upper GI bleed K92.2 Confusion and disorientation R41.0 NSTEMI (non-ST elevated myocardial infarction) I21.4 Atrial fibrillation I48.91 Hyperlipidemia E78.5 Hyperlipidemia type: unspecified End-stage renal disease on hemodialysis N18.6; Z99.2 Time Spent (min) 32 (1) Hyperlipidemia Hyperlipidemia type: unspecified Qualified Code(s): E78.5 - Hyperlipidemia, unspecified
[2021-07-29] MEDS ORDERED: ICU PROTOCOL FOR HYPERGLYCEMIA PRN (23:23)
[2021-07-29] MEDS ORDERED: ALBUTEROL 0.083% NEBU SOLN 3 ML VIAL INH PRN (23:37)
[2021-07-29] MEDS ORDERED: MELATONIN 3 MG TAB PO PRN (23:37)
[2021-07-30] MEDS: PANTOprazole 40 MG in DEXTROSE 5% 100 ML IV SCH ×6 (00:17→21:16)
[2021-07-30] MEDS: [UNRECOGNIZED DRUG - OTHER] SCH ×4 (00:19→23:57)
[2021-07-30 00:38] LABS: Hematocrit (blood only) 26.2 % (37-47); Hemoglobin 7.9 g/dL (12.0-16.0)
[2021-07-30] MEDS ORDERED: PHARMACY GLYCEMIC MGMT CONSULT PRN (00:58)
[2021-07-30] MEDS ORDERED: CARBOHYDRATES FOR HYPOGLYCEMIA PO PRN (00:58)
[2021-07-30] MEDS ORDERED: GLUCOSE 40% GEL 15 GM TUBE PO PRN (00:58)
[2021-07-30] MEDS ORDERED: GLUCAGON FOR INJ 1 MG VIAL SQ PRN (00:58)
[2021-07-30] MEDS ORDERED: GLUCOSE 10 TABS/TUBE PO PRN (00:58)
[2021-07-30] MEDS ORDERED: DEXTROSE 50% 50 ML SYRINGE IV PRN (00:58)
[2021-07-30] MEDS: INSULIN ASPART PER UNIT SC SCH ×5 (02:24→23:56)
[2021-07-30 05:58] LABS: INR 1.3 (0.9-1.1); Partial Thromboplastin Ratio 1.3; Partial Thromboplastin Time 35.4 Seconds (21.0-31.0); Prothrombin Time 13.7 Seconds (9.0-12.0)
[2021-07-30 06:06] LABS: Albumin Globulin Ratio 1.2 (0.9-2); Albumin Level 2.9 gm/dl (3.4-5.0); BUN Creatinine Ratio 12.5 (10-20); Bilirubin,Total 1.5 mg/dl (0.2-1.0); Creatinine Clr Calc Pharmacy 11.1 ml/min; Est GFR (Non-African American) 10.4 ml/min; Globulin 2.5 gm/dl (2.5-4.0); Magnesium 1.9 mg/dl (1.7-2.4); Total Protein 5.4 gm/dl (6.0-8.3)
[2021-07-30] MEDS: LEVOTHYROXINE SODIUM 150 MCG TABLET PO SCH (06:08)
[2021-07-30] MEDS: BENZONATATE 100 MG CAPSULE PO PRN (06:09)
[2021-07-30 06:44] LABS: Mean Corpuscular Hemoglobin 31.1 pg (25-34); Mean Corpuscular Hgb Conc 30.8 g/dL (32-36); Mean Corpuscular Volume 101.2 fL (80-100); Mean Platelet Volume 10.4 fL (7.4-10.4); Platelet Count 148 K/uL (130-400); RDW Coefficient of Variation 20.1 % (11.5-14.5); RDW Standard Deviation 73.2 fL (36.4-46.3); Red Blood Count 2.57 M/uL (4.2-5.4)
[2021-07-30 06:51] LABS: Anisocytosis Present; Basophils # (auto) 0.04 K/uL (0-0.2); Basophils % (auto) 0.3 %; Eosinophils # (auto) 0.16 K/uL (0-0.5); Eosinophils % (auto) 1.4 %; Immature Granulocytes # (auto) 0.07 K/uL (0.00-0.02); Immature Granulocytes % (auto) 0.6 %; Lymphocytes # (auto) 2.64 K/uL (1.2-3.4); Monocytes # (auto) 0.84 K/uL (0.11-0.59); Monocytes % (auto) 7.3 %; Neutrophils # (auto) 7.75 K/uL (1.4-6.5); Neutrophils % (auto) 67.4 %; Polychromasia 1+
--- NOTE | 2021-07-30 07:54 | XRay Report ---
SINGLE VIEW CHEST CLINICAL HISTORY: Follow-up congestive failure. FINDINGS: An AP, portable, upright chest radiograph is compared to study dated 07/29/2021 and correlat ed with chest CT dated 05/01/2021. A right subclavian central venous infusion port and a left-sided ce ntral venous catheter are unchanged in position. The heart is enlarged noting atherosclerotic calcifi cation of the thoracic aorta. Pulmonary vascular congestion has modestly improved from yesterday. Sma ll pleural effusions are suspected with bibasilar scarring/atelectasis. No pneumothorax is seen. The skeletal structures are osteopenic. The bony thorax is grossly intact. IMPRESSION: 1. Cardiomegaly. Pulmonary vascular congestion has modestly improved from yesterday. 2. Suspect small pleural effusions. ACT 112: Negative or not required by law. Electronically signed by: Jimmie Brand M.D. 07/30/2021 7:51 AM
--- NOTE | 2021-07-30 08:09 | Critical Care Progress Note ---
Date of Service July 30, 2021 Assessment & Plan (1) Admitted to intensive care unit: (2) Confusion and disorientation: (3) End-stage renal disease on hemodialysis: (4) NSTEMI (non-ST elevated myocardial infarction): (5) Chronic cough: Plan: Reason Critically Ill: 86-year-old female presenting with generalized weakness and fatigue with associated hypotension and acute anemia likely in the setting of upper GI bleeding requiring close hemodynamic monitoring and possible need for pressors/transfusion. 24-hour events: Patient mated to the ICU. She been hemodynamically stable. She never required transfusion. Recommendations: NEURO -confusion. Continue to follow clinically. Imaging unremarkable. Suspect multifactorial. CARDIAC/VASCULAR -hypotension with normal lactate. Cortisol pending. We will add midodrine to her regiment. Florinef might also be considered although she is already fluid overloaded. Dialysis with additional fluid removal as tolerated. Holding anticoagulation and antiplatelet therapy pending resolution of bleeding issues. High-sensitivity troponin was elevated. Continue to trend. Echocardiogram. Cardiology consultation. RESPIRATORY -chronic cough: Suspect that this is related to multifactorial etiology but habitual/tic cough remains high on the differential as well as potential vocal cord dysfunction. She is failed all aggressive interventions previously and when I saw her last I recommended that she be evaluated at a tertiary care center. We tried hydrocodone which may have contributed to the patient's disequilibrium and confusion so we will hold any additional narcotic medications for her cough. GI/NUTRITION -questionable GI bleed. Hemodynamically stable. Continue to trend H&H. GI evaluation pending. Continue Protonix for now. Holding home Eliquis RENAL/LYTES - ESRD on HD M//. Nephrology consultation pending. Defer renal replacement to them. -anuric ENDO -continue home thyroid medication. Glycemic control per protocol HEME -anemia. No indication for transfusion currently. Continue to trend ID -no acute issues. Continue to follow clinically. LINES/IV ACCESS - * LEFT subclavian permacath * RIGHT sided a port * LEFT cephalic Endurance catheter. DVT PROPHYLAXIS - * Hold on chemoprophylaxis in the setting of UGIB * SCDs DISPO: Keep in ICU pending GI evaluation I have personally spent 40 minutes of critical care time in the direct management of this patient. This is a life/limb threatening event. This includes time spent evaluating patient, direct bedside care, chart review, placing orders, interpretation of diagnostic studies, discussion with consultants, patient, and family members, as well as other required patient management activities. This time is exclusive of all separately billable procedures, and teaching time and separate from and in addition to any other critical care service time. Thank you for allowing us to participate in the care of this patient. Admission and Anticipated Discharge Date Admission Date: July 29, 2021 Subjective Patient seen and examined. Discussed with critical care KULDEEP as well as with bedside nurse. Patient initially admitted to the ICU due to hypotension but her blood pressures been stable overnight. She did not require transfusion, vasopressors, or any other interventions. Interestingly, I spent over an hour outside the patient's room and heard no episodes of coughing. Review of Systems Review of Systems: All systems reviewed & are unremarkable except as noted in Subjective Physical Exam Constitutional: WD/WN, vitals as above Neck: trachea midline, no thyromegaly Respiratory: normal respiratory effort, lungs clear to auscultation Cardiovascular: Rate/Rhythm: regular rate Heart Sounds: + murmur Extremities: + edema Gastrointestinal (Abdomen): normal bowel sounds, soft, nontender, no hepatosplenomegaly Musculoskeletal: Extremities: extremities normal to inspection Skin: no rashes, warm and dry Neurologic: Nonfocal exam Lymphatic: no cervical lymphadenopathy Results & Data Results & Data ([facility]) Vital Signs (Past 12 Hours) Vital Signs Temp Pulse Pulse Resp BP BP Pulse Ox 07/30/21 06:00 82 21 110/59 L 91 07/30/21 05:30 82 92 07/30/21 05:00 36.8 C 82 17 90/44 L 96 07/30/21 04:30 81 92 07/30/21 04:20 80 22 93 07/30/21 04:00 79 20 137/31 L 97 07/30/21 03:30 83 16 91 07/30/21 03:00 80 20 141/57 H 94 07/30/21 02:30 82 19 83/52 L 98 07/30/21 02:00 80 12 83/42 L 93 07/30/21 01:30 80 19 92 07/30/21 01:00 81 19 101/39 L 92 07/30/21 00:30 79 16 96 07/30/21 00:00 81 16 95 07/29/21 23:30 82 16 93 07/29/21 23:29 37 C 79 22 133/72 95 07/29/21 23:24 80 07/29/21 23:00 85 13 07/29/21 22:05 96 07/29/21 22:00 80 99 07/29/21 21:30 80 20 104/46 L 100 07/29/21 21:00 80 99/47 L 100 07/29/21 20:30 76 24 107/43 L Pulse Ox 07/30/21 06:00 07/30/21 05:30 07/30/21 05:00 07/30/21 04:30 07/30/21 04:20 07/30/21 04:00 07/30/21 03:30 07/30/21 03:00 07/30/21 02:30 07/30/21 02:00 07/30/21 01:30 07/30/21 01:00 07/30/21 00:30 07/30/21 00:00 07/29/21 23:30 07/29/21 23:29 07/29/21 23:24 95 07/29/21 23:00 07/29/21 22:05 07/29/21 22:00 07/29/21 21:30 07/29/21 21:00 07/29/21 20:30 Critical Care Results & Data Vital Signs (Past 12 Hours) Vital Signs Temp Pulse Pulse Resp BP BP Pulse Ox 07/30/21 06:00 82 21 110/59 L 91 07/30/21 05:30 82 92 07/30/21 05:00 36.8 C 82 17 90/44 L 96 07/30/21 04:30 81 92 07/30/21 04:20 80 22 93 07/30/21 04:00 79 20 137/31 L 97 07/30/21 03:30 83 16 91 07/30/21 03:00 80 20 141/57 H 94 07/30/21 02:30 82 19 83/52 L 98 07/30/21 02:00 80 12 83/42 L 93 07/30/21 01:30 80 19 92 07/30/21 01:00 81 19 101/39 L 92 07/30/21 00:30 79 16 96 07/30/21 00:00 81 16 95 07/29/21 23:30 82 16 93 07/29/21 23:29 37 C 79 22 133/72 95 07/29/21 23:24 80 07/29/21 23:00 85 13 07/29/21 22:05 96 07/29/21 22:00 80 99 07/29/21 21:30 80 20 104/46 L 100 07/29/21 21:00 80 99/47 L 100 07/29/21 20:30 76 24 107/43 L Pulse Ox 07/30/21 06:00 07/30/21 05:30 07/30/21 05:00 07/30/21 04:30 07/30/21 04:20 07/30/21 04:00 07/30/21 03:30 07/30/21 03:00 07/30/21 02:30 07/30/21 02:00 07/30/21 01:30 07/30/21 01:00 07/30/21 00:30 07/30/21 00:00 07/29/21 23:30 07/29/21 23:29 07/29/21 23:24 95 07/29/21 23:00 07/29/21 22:05 07/29/21 22:00 07/29/21 21:30 07/29/21 21:00 07/29/21 20:30 Lab & Micro Results (Past 24 Hours) RBC 2.57 M/uL (4.2-5.4) L 07/30/21 WBC 11.50 K/uL (4.8-10.8) H 07/30/21 Hgb 8.0 g/dL (12.0-16.0) L 07/30/21 Hct 26.0 % (37-47) L 07/30/21 MCV 101.2 fL (80-100) H 07/30/21 MCH 31.1 pg (25-34) 07/30/21 MCHC 30.8 g/dL (32-36) L 07/30/21 RDW Standard Deviation 73.2 fL (36.4-46.3) H 07/30/21 RDW Coefficient of Variation 20.1 % (11.5-14.5) H 07/30/21 Plt Count 148 K/uL (130-400) 07/30/21 MPV 10.4 fL (7.4-10.4) 07/30/21 Nucleated Red Blood Cells % (auto) 0.6 % 07/29/21 Nucleated RBC Absolute Count (auto) 0.06 K/uL (0-0) H 07/29/21 Neutrophils (%) (Auto) 67.4 % 07/30/21 Lymphocytes (%) (Auto) 23.0 % 07/30/21 Monocytes # (Auto) 0.84 K/uL (0.11-0.59) H 07/30/21 Eosinophils # (Auto) 0.16 K/uL (0-0.5) 07/30/21 Immature Granulocyte % (Auto) 0.6 % 07/30/21 Neutrophils # (Auto) 7.75 K/uL (1.4-6.5) H 07/30/21 Lymphocytes # (Auto) 2.64 K/uL (1.2-3.4) 07/30/21 Monocytes # (Auto) 0.84 K/uL (0.11-0.59) H 07/30/21 Eosinophils # (Auto) 0.16 K/uL (0-0.5) 07/30/21 Basophils # (Auto) 0.04 K/uL (0-0.2) 07/30/21 Immature Granulocyte # (Auto) 0.07 K/uL (0.00-0.02) H 07/30/21 Polychromasia 1+ 07/30/21 Hypochromasia Present 07/29/21 Poikilocytosis Present 07/29/21 Anisocytosis Present 07/30/21 Na 134 mmol/L (136-145) L 07/30/21 K 5.0 mmol/L (3.5-5.1) 07/30/21 Cl 98 mmol/L (98-107) 07/30/21 CO2 27 mmol/L (21-32) 07/30/21 Anion Gap 9 (3-11) 07/30/21 BUN 47 mg/dl (6-23) H 07/30/21 Creatinine 3.76 mg/dl (0.6-1.2) H 07/30/21 Estimated GFR ( Amer) 12.0 ml/min 07/30/21 Estimated GFR (Non-Af Amer) 10.4 ml/min 07/30/21 BUN/Creatinine Ratio 12.5 (10-20) 07/30/21 Glu 185 mg/dl (70-99(Fasting)) H 07/30/21 Ca 9.0 mg/dl (8.5-10.1) 07/30/21 Phosphorus Level 3.0 mg/dl (2.5-4.9) 07/30/21 Total Bilirubin 1.5 mg/dl (0.2-1.0) H 07/30/21 AST 18 U/L (13-39) 07/30/21 ALT 7 U/L (7-52) 07/30/21 Alkaline Phosphatase 135 U/L (34-104) H 07/30/21 TP 5.4 gm/dl (6.0-8.3) L 07/30/21 Albumin 2.9 gm/dl (3.4-5.0) L 07/30/21 Globulin 2.5 gm/dl (2.5-4.0) 07/30/21 Albumin/Globulin Ratio 1.2 (0.9-2) 07/30/21 Mg 1.9 mg/dl (1.7-2.4) 07/30/21 05:33 07/30/21 Calcium Level 9.0 mg/dl (8.5-10.1) 07/30/21 05:33 07/30/21 Prothromb Time International Ratio 1.3 (0.9-1.1) H 07/30/21 05:33 07/30/21 Diagnostic Findings (Past 24 Hours) Chest X-Ray 07/29/21 17:33 XR chest 1V portable HISTORY: 86 years-old Female weakness acute weakness COMPARISON: Chest radiograph 05/01/2021 TECHNIQUE: Portable AP view of the chest FINDINGS: The cardiac silhouette is enlarged. Left subclavian dual-lumen hemodialysis catheter and right subclavian [id number] catheter is noted with distal tips in the expected location of the mid SVC. No pneumothorax, or large pleural effusion. Pulmonary vascular congestion with interstitial coarsening. Probable trace pleural effusions. Degenerative changes of the shoulders and spine. IMPRESSION: 1. Cardiomegaly with pulmonary edema. 2. Left subclavian hemodialysis and right-sided [id number] catheters as above. ACT 112: Negative or not required by law. The above report was generated using voice recognition software. It may contain grammatical, syntax or spelling errors. Electronically signed by: Quintin Burnette M.D. 07/29/2021 5:[address] 07/29/21 17:33 CT head/brain wo con CLINICAL HISTORY: 86 years-old Female with AMS. Acutely altered mental status TECHNIQUE: Multiple axial CT images of the head were obtained without contrast. A dose lowering technique was utilized adhering to the principles of ALARA. CT DOSE: 614.27 mGy.cm COMPARISON: CT maxillofacial 11/26/2017 FINDINGS: No acute intracranial hemorrhage, midline shift, intracranial mass, hydrocephalus, territorial ischemia or abnormal extra-axial collection. Mild involutional changes. White matter hypodensities suggest chronic microvascular ischemic disease. The calvarium is intact. Prior bilateral lens repair. The paranasal sinuses, mastoid air cells, and middle ear cavities are clear. IMPRESSION: No acute intracranial abnormality. ACT 112: Negative or not required by law. The above report was generated using voice recognition software. It may contain grammatical, syntax or spelling errors. Electronically signed by: Quintin Burnette M.D. 07/29/2021 7:08 PM Chest X-Ray 07/30/21 07:00 SINGLE VIEW CHEST CLINICAL HISTORY: Follow-up congestive failure. FINDINGS: An AP, portable, upright chest radiograph is compared to study dated 07/29/2021 and correlated with chest CT dated 05/01/2021. A right subclavian central venous infusion port and a left-sided central venous catheter are unchanged in position. The heart is enlarged noting atherosclerotic calcification of the thoracic aorta. Pulmonary vascular congestion has modestly improved from yesterday. Small pleural effusions are suspected with bibasilar scarring/atelectasis. No pneumothorax is seen. The skeletal structures are osteopenic. The bony thorax is grossly intact. IMPRESSION: 1. Cardiomegaly. Pulmonary vascular congestion has modestly improved from yesterday. 2. Suspect small pleural effusions. ACT 112: Negative or not required by law. Electronically signed by: Jimmie Brand M.D. 07/30/2021 7:51 AM I & O Totals 24 Hours 07/29/21 07/30/21 07/31/21 06:59 06:59 06:59 Intake Total 1236.667 / 1236.667 Output Total Balance 1235.667 / 1235.667 Cumulative 07/29/21 17:00 thru 07/30/21 06:07 Intake Total 1236.667 Output Total 1 Balance 1235.667 RT Ventilator Mngmt (Last Documented) Ventilator Ordered Settings Respiratory Rate 21 07/30/21 06:00 Ventilator - PT Measurements Respiratory Rate 21 Coding Level of Care Code Critical Care 1st 30-74 mins Diagnoses Admitted to intensive care unit Z78.9 Confusion and disorientation R41.0 End-stage renal disease on hemodialysis N18.6; Z99.2 NSTEMI (non-ST elevated myocardial infarction) I21.4 Chronic cough R05
[2021-07-30] MEDS ORDERED: BUMETANIDE 1 MG TAB PO SCH (09:00)
[2021-07-30] MEDS ORDERED: INSULIN GLARGINE SOLOSTAR 100 UNITS/ML 3 ML PEN SC SCH (09:00)
--- NOTE | 2021-07-30 09:15 | Cardiology Consultation ---
Date of Consultation July 30, 2021 Assessment & Plan (1) Atrial fibrillation: (2) Anticoagulant long-term use: (3) CAD (coronary artery disease): (4) Elevated troponin level: (5) Chronic diastolic CHF (congestive heart failure): 1. Paroxysmal atrial fibrillation: She has a history of paroxysmal atrial fibrillation, she has been in atrial fibrillation this admission but the rate has been well controlled and she has not been on rate control medications I believe. I would continue to observe. 2. Anticoagulation: Over the long run anticoagulation would be beneficial, however over the short-term certainly it should be held. 3. Coronary disease: She has known coronary artery disease, there is not evidence of an acute event and I agree with holding clopidogrel for the time being. 4. Elevated troponin: She does have an elevated troponin but in the absence of an acute finding on her electrocardiogram I would certainly not consider invasive evaluation. There is little that can be done in any case in the presence of an active GI bleed and with holding of her platelet inhibitors and anticoagulants. I suspect it is demand ischemia from known coronary artery disease but I would continue to trend the levels. 5. Congestive heart failure: She has a history of diastolic congestive heart failure, this may become an issue if she receives a a lot of fluid and blood and with her acute GI bleed and anemia. We need to be vigilant and not over hydrate her. History of Present Illness Reason for Consultation: Atrial fibrillation, elevated troponin Attending Physician: Abhishek Prakash MD History of Present Illness This is an 86-year-old woman who follows with Dr. Tipton in our office. She has a history of hypertension, hypercholesterolemia, paroxysmal atrial fibrillation and congestive heart failure as well as peripheral vascular disease and coronary artery disease. She has had stent placement in July 2015. She is also on dialysis. She had been doing well with her atrial fibrillation and tell around February 08, 2021 when she developed atrial flutter with a controlled ventricular rate. I believe she may have stayed in atrial fibrillation or flutter for some time but seems to have spontaneously converted to sinus. Echocardiography on May 04, 2021 showed normal left ventricular size and function with a suggestion of right ventricular volume overload and moderate concentric left ventricular hypertrophy. Right ventricle was moderately dilated and she had reduced ventricular systolic function. She had only mild mitral regurgitation but moderate tricuspid regurgitation and there was a small pericardial effusion without evidence of tamponade. The right ventricular function seems to have declined since the year earlier. She was seen in the office on July 06, 2021 and seem to be doing fairly well. On electrocardiography July 29, 2021 she was in sinus rhythm. She presented to the emergency room here on July 29, 2021 with confusion and disorientation associated with an upper GI bleed. Her high-sensitivity troponin was elevated to a maximum of 658 this morning, electrocardiography this admission has shown sinus rhythm without acute changes. She has been maintained on Eliquis at a reduced dose as an outpatient, that is now on hold. She is also on clopidogrel daily. She appears comfortable and has no specific cardiac complaints. She is not aware of her arrhythmia. She denies chest discomfort. Allergies Allergy/AdvReac Type Severity Reaction Status Date / Time cat dander Allergy Intermediate itching Verified 07/29/21 19:50 eyes, blisters pseudoephedrine AdvReac Intermediate Hallucinati Verified 07/29/21 19:50 ons hydroxyzine AdvReac Mild hallucinati Verified 07/29/21 19:50 ons Home Medications Medication Instructions Recorded Confirmed Type albuterol sulfate 1.25 mg/3 mL 1.25 mg INH Q6H PRN #90 ml 12/02/17 07/29/21 Rx solution for nebulization clopidogrel 75 mg tablet (Plavix) 75 mg PO QAM #90 tab 12/11/18 07/29/21 History fluticasone 232 mcg-salmeterol 14 1 puffs INHALATION QPM #1 ea 12/11/18 07/29/21 History mcg/actuation breath activated powdr (AirDuo RespiClick) albuterol sulfate 90 mcg/actuation 2 puffs INHALATION Q4H PRN #1 gm 02/18/19 07/29/21 History aerosol inhaler coenzyme Q10 100 mg capsule 100 mg PO QAM cap 02/18/19 07/29/21 History denosumab 120 mg/1.7 mL (70 mg/mL) 120 mg SUBCUT MONTHLY ml 02/18/19 07/29/21 History subcutaneous solution (Xgeva) docusate sodium 100 mg capsule 100 mg PO HS cap 02/18/19 07/29/21 History exemestane 25 mg tablet (Aromasin) 25 mg PO QAM tab 02/18/19 07/29/21 History isosorbide mononitrate 120 mg 120 mg PO QAM #90 tab 02/18/19 07/29/21 History tablet,extended release 24 hr nitroglycerin 0.4 mg sublingual 0.4 mg SL Q5M PRN #25 tab 02/18/19 07/29/21 History tablet pantoprazole 40 mg tablet,delayed 40 mg PO QAM 02/10/20 07/29/21 History release levothyroxine 150 mcg tablet 150 mcg PO QAM 08/23/20 07/29/21 History pramipexole 0.25 mg tablet 0.25 mg PO HS 08/23/20 07/29/21 History (Mirapex) febuxostat 40 mg tablet 40 mg PO QAM 10/05/20 07/29/21 History famotidine 20 mg tablet (Acid 2 mg PO QPM tab 07/06/21 07/29/21 History Riveter Portable Machine (famotidine)) apixaban 2.5 mg tablet (Eliquis) 2.5 mg PO BID 07/29/21 07/29/21 History atorvastatin 10 mg tablet 10 mg PO HS 07/29/21 07/29/21 History benzonatate 100 mg capsule 100 mg PO TID PRN 07/29/21 07/29/21 History bumetanide 2 mg tablet 2 mg PO QAM 07/29/21 07/29/21 History colchicine 0.6 mg tablet 0.6 mg PO BID PRN 07/29/21 07/29/21 History insulin glargine 100 unit/mL (3 25 unit SUBCUT DAILY 07/29/21 07/29/21 History mL) subcutaneous pen (Lantus Solostar U-100 Insulin) melatonin 10 mg capsule 10 mg PO HS PRN 07/29/21 07/29/21 History Patient History Medical History (Updated 07/30/21 @ 12:51 by Efren Hatch DO) Aspiration, chronic pulmonary Following with ENT and GI, 07/2020 hospitalization for PNA following EGD suspected aspiration Asthma Controlled per pt, rescue inhaler use last several mos ago Atrial fibrillation Dx 2017-on anticoagulation-follow with [facility] Breast cancer 2005- left mastectomy+ chemo and XRT with recurrence of breast CA to RT 4th & 5th ribs (oral/injectable medication) Left upper extremity restriction per pt CAD (coronary artery disease) 2 stents-LAD and D1 HORACE, July 2015. Follows with [facility]. Carotid artery stenosis, asymptomatic 70-79% stenosis of right ICA per 01/2020 carotid doppler Chronic anticoagulation Chronic diastolic (congestive) heart failure Follows with [facility], stable per note and pt-chronically sleeps in recliner Diabetes mellitus IDDM, controlled and stable per pt Dysphagia Occasional dysphagia and coughing with swallowing pills, improved without clear cause per pt. Pt denies re-visiting recommended EGD-following with PCP End stage renal disease End-stage renal disease on hemodialysis Fistula Right arm not using at present and needs further surgery GERD (gastroesophageal reflux disease) Controlled, stable per pt Hemodialysis patient Dialysis M,W,F- [facility] Using temporary cath in left shoulder Hyperlipidemia Hypertension Controlled, stable per pt Hypothyroidism Port-A-Cath in place Rt chest Pulmonary hypertension Mild per 05/04/21 ECHO- RVSP 39mmHg; follows with [facility] Rib lesion Bony metastasis per bone scan, pt states is on oral and injectable tx and following with PCP Sleep apnea No current device use Urinary leakage Surgical History History of appendectomy History of breast biopsy History of cardiac cath 2017 -2 stents-follows with [facility] History of carpal tunnel release of both wrists History of colonoscopy History of heart artery stent X 2 (2017) History of left mastectomy pt reports LUE restriction History of tonsillectomy and adenoidectomy History of total abdominal hysterectomy and bilateral salpingo-oophorectomy Family History Father Myocardial infarction Heart disease Mother Hypertension Other No family history of adverse response to anesthesia No family history of bleeding disorder Social History Smoking Status: Never smoker Second Hand Exposure: No; Hx Alcohol Use: No Hx Substance Use: No Preferred Language: Zimbabwean Communication Ability: Effective Geodetic Surveyor Technologist Required: No Beliefs That Will Affect Care: None marital status: / Current Living Situation: Alone Current Living Situation Comment: FAMILY COMES MULTIPLE TIMES PER DAY current occupational status: retired 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 in [place]) Feels Safe at Home: Yes Safety Concerns: Feels Safe At This Time Assistive Devices: Cane and CPAP Review of Systems Review of Systems: Unobtainable due to cognitive status Physical Exam Physical Exam: Constitutional: Alert, cooperative and in no distress but confused. HEENT: Unremarkable Neck: No jugular venous distention, carotid pulses are regular and equal bilaterally without bruits. Pulmonary: Clear to auscultation bilaterally. Cardiac: Regular rhythm with no murmur, gallop or rub. Abdomen: Soft, nontender with normal bowel sounds. Extremities: +2 bilateral pretibial edema. Neurologic: No focal findings. Gait was not tested. Skin: No rash, ecchymoses or petechiae. Results & Data ([facility]) Vital Signs (Past 12 Hours) Vital Signs Temp Pulse Pulse Resp BP BP Pulse Ox 07/30/21 06:00 82 21 110/59 L 91 07/30/21 05:30 82 92 07/30/21 05:00 36.8 C 82 17 90/44 L 96 07/30/21 04:30 81 92 07/30/21 04:20 80 22 93 07/30/21 04:00 79 20 137/31 L 97 07/30/21 03:30 83 16 91 07/30/21 03:00 80 20 141/57 H 94 07/30/21 02:30 82 19 83/52 L 98 07/30/21 02:00 80 12 83/42 L 93 07/30/21 01:30 80 19 92 07/30/21 01:00 81 19 101/39 L 92 07/30/21 00:30 79 16 96 07/30/21 00:00 81 16 95 07/29/21 23:30 82 16 93 07/29/21 23:29 37 C 79 22 133/72 95 07/29/21 23:24 80 07/29/21 23:00 85 13 07/29/21 22:05 96 07/29/21 22:00 80 99 07/29/21 21:30 80 20 104/46 L 100 Pulse Ox 07/30/21 06:00 07/30/21 05:30 07/30/21 05:00 07/30/21 04:30 07/30/21 04:20 07/30/21 04:00 07/30/21 03:30 07/30/21 03:00 07/30/21 02:30 07/30/21 02:00 07/30/21 01:30 07/30/21 01:00 07/30/21 00:30 07/30/21 00:00 07/29/21 23:30 07/29/21 23:29 07/29/21 23:24 95 07/29/21 23:00 07/29/21 22:05 07/29/21 22:00 07/29/21 21:30 Laboratory Results Cardiac Enzymes 07/29/21 07/29/21 07/30/21 Range/Units 18:30 18:30 05:33 AST 18 (13-39) U/L Troponin I High Sens 587.6 H* 658.4 H* (0-14) pg/ml 07/30/21 Range/Units 05:33 AST 18 (13-39) U/L Troponin I High Sens (0-14) pg/ml Coagulation 07/29/21 07/30/21 Range/Units 18:30 05:33 PT 13.9 H 13.7 H (9.0-12.0) Seconds APTT 35.0 H 35.4 H (21.0-31.0) Seconds CBC 07/29/21 07/29/21 07/30/21 Range/Units 18:30 23:52 05:33 WBC 10.05 11.50 H (4.8-10.8) K/uL RBC 2.68 L 2.57 L (4.2-5.4) M/uL Hgb 8.4 L 7.9 L 8.0 L (12.0-16.0) g/dL Hct 27.4 L 26.2 L 26.0 L (37-47) % Plt Count 141 148 (130-400) K/uL Neut # (Auto) 6.17 7.75 H (1.4-6.5) K/uL Lymph # (Auto) 2.65 2.64 (1.2-3.4) K/uL Elmore # (Auto) 1.00 H 0.84 H (0.11-0.59) K/uL Eos # (Auto) 0.11 0.16 (0-0.5) K/uL Baso # (Auto) 0.06 0.04 (0-0.2) K/uL Comprehensive Metabolic Panel 07/29/21 07/30/21 Range/Units 18:30 05:33 Sodium 133 L 134 L (136-145) mmol/L Potassium 4.7 5.0 (3.5-5.1) mmol/L Chloride 97 L 98 (98-107) mmol/L Carbon Dioxide 29 27 (21-32) mmol/L BUN 41 H 47 H (6-23) mg/dl Creatinine 3.29 H 3.76 H D (0.6-1.2) mg/dl Glucose 206 H 185 H (70-99(Fasting)) mg/dl Calcium 9.5 9.0 (8.5-10.1) mg/dl AST 18 18 (13-39) U/L ALT 7 7 (7-52) U/L Alkaline Phosphatase 153 H 135 H (34-104) U/L Total Protein 5.5 L 5.4 L (6.0-8.3) gm/dl Albumin 3.0 L 2.9 L (3.4-5.0) gm/dl Intake and Output 07/29/21 07/30/21 07/30/21 22:59 06:59 14:59 Intake Total 153.333 / 7710.419 6271.334 / 1236.667 Output Total Balance 153.333 / 6720.110 2694.334 / 1235.667 Intake: IV 153.333 / 5577.976 3335.334 / 1236.667 PANTOprazole 40 mg In Dextrose 116.667 / 116.667 5% 100 ml @ 8 MG/HR 20 mls/hr IV Q5H MITA Rx#:[id number] PANTOprazole 80 mg In Dextrose 120 / 120 5% 100 ml @ 400 mls/hr IV NOW ONE Rx#:[id number] Sodium Chloride 0.9% 1000ML 1, 33.333 / 1000.000 966.667 / 1000.000 000 ml @ 125 mls/hr IV .Q8H MITA Rx#:[id number] Output: Urine 0 / 0 # Bowel Movements Other: Weight 83.9 kg 75.8 kg Weight Measurement Method Built in Bedscale Built in Bedstrihealth Diagnostic Findings Telemetry: Atrial fibrillation with a rapid ventricular response PG Care Time/CCT Total # of Minutes Spent Total Time Spent with Patient: Total time spent is greater than 50% in coordination of care (as documented) at patient's floor/unit and/or counseling patient: Coding Level of Care Code 99170 Initial Inpt Care Lvl 3 Diagnoses Atrial fibrillation I48.0 Atrial fibrillation type: paroxysmal Anticoagulant long-term use Z79.01 CAD (coronary artery disease) I25.10 Associated angina: unspecified whether angina present Coronary Disease-Associated Artery/Lesion type: jamul artery [place] vs. transplanted heart: jamul heart Chronic diastolic CHF (congestive heart failure) I50.32 Elevated troponin level R77.8 (1) CAD (coronary artery disease) Associated angina: unspecified whether angina present Coronary Disease- Associated Artery/Lesion type: jamul artery [place] vs. transplanted heart: jamul heart Qualified Code(s): I25.10 - Atherosclerotic heart disease of jamul coronary artery without angina pectoris (2) Atrial fibrillation Atrial fibrillation type: paroxysmal Qualified Code(s): I48.0 - Paroxysmal atrial fibrillation
[2021-07-30] MEDS ORDERED: SODIUM CHLORIDE 0.9% 250 ML IV PRN (09:40)
[2021-07-30] MEDS ORDERED: MIDODRINE HCL 10 MG TAB PO SCH (10:00)
--- NOTE | 2021-07-30 10:26 | Pharmacy Report ---
Pharmacy Glycemic Short Note 2 - Date of Service July 30, 2021 - Glycemic Short BSG Results (Last 24 hours): 07/29/21 07/30/21 07/30/21 18:30 00:57 05:33 Glucose 206 H 185 H POC Glucose 198 H 07/30/21 07/30/21 05:58 09:46 Glucose POC Glucose 179 H 170 H OUTPATIENT ANTIDIABETIC REGIMEN: * Lantus 25 units SQ qAM * HbA1c: 7.7% (05/01/21) ASSESSMENT: * Ms Narvaez is an 86yo diabetic F admitted overnight with GI bleed, hypotension. * Pt initiated on conservative SQ basal/bolus insulin regimen. * Pt is on IV protonix, which will provide continuous dextrose. Pt is NPO. PLAN FOR INPATIENT GLYCEMIC CONTROL: * Hold outpatient oral diabetes medications * Basal insulin * Lantus 10 units SQ daily * Bolus insulin * NovoLog per scale ACHS or Q6hrs while NPO * Goal Range: Low 110 mg/dL - High 140 mg/dL * Correction Factor: 20 mg/dL/unit * Nutritional / Prandial insulin per carb ratio of 1 unit per 5 grams CHO consumed
--- NOTE | 2021-07-30 11:03 | Hospitalist Progress Note ---
Date of Service July 30, 2021 Assessment & Plan (1) Upper GI bleed: Plan: Suspected upper GI bleed Reports of persistent dark stool with increasing confusion BODY TRIMMER Patient admitted overnight to ICU with GI bleed and hypotension, concern for pressor requirement Currently on midodrine 2.5 mg 3 times daily, with 10 mg before dialysis, off IV vasopressors at this time N.p.o. Protonix GTT H&H trended every 6 hours Transfusion threshold ~8.0 in the setting of cardiac history and demand ischemia. 2 units transfused with repeat H&H posttransfusion pending GI consulted. Following for clinical stability, no plans for endoscopy at this time. Eliquis, Plavix held for bleeding (2) Coronary disease: Plan: History of CAD/NSTEMI History of HORACE to LAD and D1 07/2015 History of 70-79% stenosis of right ICA TTE 05/04/2021: LV EF 55-60%. No regional wall motion abnormalities. Septal flattening during diastole. Moderate concentric LVH. Moderately dilated right ventricle with moderately reduced right ventricular systolic function. Mild mitral regurg, moderate tricuspid regurg, mild pulmonary hypertension RVSP 39 mmHg, small pericardial effusion without evidence of tamponade.? Cor pulmonale Repeat TTE pending, formal read not available but per discussion with cardiology not significantly changed from prior Home meds held/n.p.o. for bleed above On bumetanide 2 mg every morning, Plavix 75 mg every morning, atorvastatin 10 mg p.o. nightly BODY TRIMMER, isosorbide 120 mg every morning High-sensitivity troponin on admission 587.6, up trended to 658.4 Cardiology consulted. Known coronary disease, hold Plavix in the setting of acute bleeding. Elevated troponin and absence of EKG findings and chest pain and suspect demand ischemia. Trend levels, no acute intervention at this time and intervention would require anticoagulation/platelet inhibitors which are contraindicated in the setting of her acute bleed. Appreciate recommendations. History of CHF with diastolic failure. Also dialysis dependent, anuric. Cautious fluid support. Dialysis as noted (3) End-stage renal disease on hemodialysis: Plan: Patient with Saturday dialysis, last dialysis 1 day prior to admission - 06/29/21 R arm basilic vein transposition, dialysis via permacath Volume overloaded on admitting exam with normal oxygen saturations on 2 L Nephrology consulted, pending dialysis 07/30 Potassium 5.0, phosphorus 3.0, magnesium 1.95/ (4) Chronic cough: Plan: Chronic cough nonproductive with dyspnea on exertion, and history of dysphagia Has followed with pulmonology in the past last visit 07/18/2021. Suspected multifactorial but has failed all interventions. Neurontin increased was deferred in the setting of end-stage renal disease on dialysis. Did recommend referral to tertiary care center for evaluation and additional management. Patient's cough does resolve at night, was suspicious for neurogenic/habitualtic cough/psychogenic. No cough was observed overnight by ICU provider, although cough has returned daytime at bedside. No acute intervention for this at this time (5) Atrial flutter with rapid ventricular response: Plan: History of atrial flutter with RVR, on DOAC anticoagulation Rate 80s at bedside Eliquis 2.5 mg p.o. twice daily held on admission for acute bleeding Adequate rate control (6) Confusion and disorientation: Plan: Suspected due to acute hypotension with GI bleed on admission Clinically improving (7) Diabetes: Plan: On home insulin glargine 25 units daily Glucose checks AC/at bedtime Goal BSG 1001 40 Converted to glargine 10 units every morning, SSI, on pharmacy hypoglycemia protocol while in ICU (8) NSTEMI (non-ST elevated myocardial infarction): Plan: See above (9) Atrial fibrillation: Plan: See above (10) Hyperlipidemia: Plan: Hold atorvastatin while n.p.o. (11) Carotid artery stenosis, asymptomatic: Admission and Anticipated Discharge Date Admission Date: July 29, 2021 Subjective Seen at bedside. Denies chest pain, chest pressure. Reports that she is not short of breath at rest. Denies bleeding. Is oriented to name and hospital, otherwise not oriented. History somewhat limited by cognitive status. Denies abdominal pain. Seen again in afternoon with family at bedside. They report patient seems overall improved and somewhat near her baseline. Tolerated dialysis well. Eventually are planning to hopefully be well enough to move to [place] to rejoin rest of family Review of Systems Review of Systems: Unobtainable due to cognitive status Physical Exam Physical Exam: General: Certainly oriented to name and place. Follows one- step commands. No acute distress. HEENT: Atraumatic, normocephalic. Vision and hearing grossly intact. Extraocul ar movements intact without nystagmus. Thorax: Right port present, left subclavian dialysis catheter present. Pulm: Diminished, without wheezes/rales symmetrical chest rise. No increase in work of breathing. No respiratory distress. On nasal cannula. SPO2 89% at bedside, nasal cannula mispositioned to side of nose, repositioned with improvement in saturation to 97% Cardiac: Irregular, systolic murmur is present Radial pulses intact and symmetrical. Abdominal: Nontender, nondistended, soft. BS present. Extremities: Pitting edema is present in the upper and lower extremities bilaterally without asymmetry. Document Preparer Microfilming strength and ankle dorsiflexion 5/5 and grossly symmetrical. Results & Data Results & Data ([facility]) Vital Signs (Past 12 Hours) Vital Signs Temp Pulse Pulse Resp BP BP Pulse Ox 07/30/21 10:00 84 14 99/40 L 98 07/30/21 09:45 110/50 L 07/30/21 09:00 82 14 83/62 L 98 07/30/21 08:00 81 25 H 106/48 L 97 07/30/21 07:00 80 14 98 07/30/21 06:00 82 21 110/59 L 91 07/30/21 05:30 82 92 07/30/21 05:00 36.8 C 82 17 90/44 L 96 07/30/21 04:30 81 92 07/30/21 04:20 80 22 93 07/30/21 04:00 79 20 137/31 L 97 07/30/21 03:30 83 16 91 07/30/21 03:00 80 20 141/57 H 94 07/30/21 02:30 82 19 83/52 L 98 07/30/21 02:00 80 12 83/42 L 93 07/30/21 01:30 80 19 92 07/30/21 01:00 81 19 101/39 L 92 07/30/21 00:30 79 16 96 07/30/21 00:00 81 16 95 07/29/21 23:30 82 16 93 07/29/21 23:29 37 C 79 22 133/72 95 07/29/21 23:24 80 Pulse Ox 07/30/21 10:00 07/30/21 09:45 07/30/21 09:00 07/30/21 08:00 07/30/21 07:00 07/30/21 06:00 07/30/21 05:30 07/30/21 05:00 07/30/21 04:30 07/30/21 04:20 07/30/21 04:00 07/30/21 03:30 07/30/21 03:00 07/30/21 02:30 07/30/21 02:00 07/30/21 01:30 07/30/21 01:00 07/30/21 00:30 07/30/21 00:00 07/29/21 23:30 07/29/21 23:29 07/29/21 23:24 95 PG Care Time/CCT Total # of Minutes Spent Total Time Spent with Patient: Total time spent is greater than 50% in coordination of care (as documented) at patient's floor/unit and/or counseling patient: Coding Level of Care Code 57836 Subseq Hosp Care Lvl 3 Diagnoses Confusion and disorientation R41.0 Upper GI bleed K92.2 End-stage renal disease on hemodialysis N18.6; Z99.2 Coronary disease I25.10 Atrial flutter with rapid ventricular response I48.92 Diabetes E11.9 NSTEMI (non-ST elevated myocardial infarction) I21.4 Atrial fibrillation I48.0 Atrial fibrillation type: paroxysmal Hyperlipidemia E78.5 Hyperlipidemia type: unspecified Chronic cough R05 Carotid artery stenosis, asymptomatic I65.29 (1) Atrial fibrillation Atrial fibrillation type: paroxysmal Qualified Code(s): I48.0 - Paroxysmal atrial fibrillation (2) Hyperlipidemia Hyperlipidemia type: unspecified Qualified Code(s): E78.5 - Hyperlipidemia, unspecified
[2021-07-30] MEDS: MIDODRINE HCL 2.5 MG TAB PO SCH ×2 (11:46→16:22)
--- NOTE | 2021-07-30 12:34 | Nephrology Consultation ---
Date of Consultation July 30, 2021 Assessment & Plan (1) End-stage renal disease on hemodialysis: Orders for emergent HD for UF and clearance entered into the EMR and reviewed with the dialysis nurse. Patient was evaluated prior to and during hemodialysis. She is tolerating HD well. Midodrine provided pretreatment for hypotension. Low potassium bath for relatively hypokalemia. PRBC x 2 u provided during treatment. Medications appropriate for IHD. Renal diet. Next anticipated HD will be tomorrow. (2) Hypotension: Midodrine started. PRBC transfusion provided with HD. Medications adjusted. Cardiology consultation reviewed. (3) Upper GI bleed: Eliquis and plavix held. No heparin with HD. (4) Anemia: 2 units PRBC support now. Maintained on Micera as outpatient. Additional ROHITH therapy held pending response to blood today. GI consult pending. (5) S/P dialysis catheter insertion: AVF with weak thrill. Additional records will be requested from HD tomorrow. Good bruit. TDC used for HD today pending follow up with outside unit. Arm is edematous limiting examination. Records from Dr. Morris in chart re viewed. s/p transposition in May. History of Present Illness Reason for Consultation: ESRD, hypervolemia Requesting Physician: Abhishek Prakash MD Attending Physician: Abhishek Prakash MD History of Present Illness Mrs. Emily Narvaez was seen and evaluated in the ICU this AM. Emergent dialysis was coordinated with the HD nurse. I was contacted by Dr. Cruz last night and reviewed the plan of care. Emily presented to the ER for evaluation of mental status changes. Evaluation notable for acute blood loss anemia with evidence of upper GI bleed. Emily was hypotensive and lethargic. She was provided some IVF to expand intravascular volume cautiously while in the ER. Protonix gtt started. Midodrine was added for BP support this AM. Emily was very tired but otherwise resting comfortably in bed at the time of my assessment this AM. She continues to struggle with a chronic cough but denied any other complaints. She states that she has been tolerating dialysis reasonably well. Her last dialysis treatment was completed on 07/28 without complications. She makes minimal amounts of urine. Emily started HD during an admission to [facility] in May. 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 I met the patient during her hospitalization in May. She is a patient of Dr. Nagel. Emily dialyzes at [facility] on a MWF schedule. Her Rx is 4 hrs on a 180 optiflux Qb 400 Qd 800, 3 K bath. EDW 82.5 kg. Emily has been dialyzing via a TDC. She has a RUE AVF which was transposed by Dr. Morris in May. The AVF was access on 07/26 for treatment. Emily has had large IDWG. She tolerated 4 L of UF on 07/28. She left HD at 82.5 kg. She reports feeling well at that time and there were no complications with treatment. It is noted that she continues to have notable pitting edema of the BL UE and LE at EDW. This has been attributed in part to lymphedema. Medical history is also notable for AODM, GERD, asthma, chronic cough, ASCVD with history of PCI 2015, Afib/flutter, OLAF/pulm HTN, history of breast cancer s/p mastectomy/chemotherapy/XRT, lumbar mets, gout. Hospitalized in May 2021 with aspiration pneumonia. She recentl y underwent an EGD demonstrating gastritis but the procedure was stopped early due to respiratory decompensation during the procedure. For anemia, she has been maintained on Micera 50 mcg Q 2 weeks. She receives venofer 50 mg weekly. Hgb 10.1 last week. One stool overnight reported as melena no BM this AM. Allergies Allergy/AdvReac Type Severity Reaction Status Date / Time cat dander Allergy Intermediate itching Verified 07/29/21 19:50 eyes, blisters pseudoephedrine AdvReac Intermediate Hallucinati Verified 07/29/21 19:50 ons hydroxyzine AdvReac Mild hallucinati Verified 07/29/21 19:50 ons Home Medications Medication Instructions Recorded Confirmed Type albuterol sulfate 1.25 mg/3 mL 1.25 mg INH Q6H PRN #90 ml 12/02/17 07/29/21 Rx solution for nebulization clopidogrel 75 mg tablet (Plavix) 75 mg PO QAM #90 tab 12/11/18 07/29/21 History fluticasone 232 mcg-salmeterol 14 1 puffs INHALATION QPM #1 ea 12/11/18 07/29/21 History mcg/actuation breath activated powdr (AirDuo RespiClick) albuterol sulfate 90 mcg/actuation 2 puffs INHALATION Q4H PRN #1 gm 02/18/19 07/29/21 History aerosol inhaler coenzyme Q10 100 mg capsule 100 mg PO QAM cap 02/18/19 07/29/21 History denosumab 120 mg/1.7 mL (70 mg/mL) 120 mg SUBCUT MONTHLY ml 02/18/19 07/29/21 History subcutaneous solution (Xgeva) docusate sodium 100 mg capsule 100 mg PO HS cap 02/18/19 07/29/21 History exemestane 25 mg tablet (Aromasin) 25 mg PO QAM tab 02/18/19 07/29/21 History isosorbide mononitrate 120 mg 120 mg PO QAM #90 tab 02/18/19 07/29/21 History tablet,extended release 24 hr nitroglycerin 0.4 mg sublingual 0.4 mg SL Q5M PRN #25 tab 02/18/19 07/29/21 History tablet pantoprazole 40 mg tablet,delayed 40 mg PO QAM 02/10/20 07/29/21 History release levothyroxine 150 mcg tablet 150 mcg PO QAM 08/23/20 07/29/21 History pramipexole 0.25 mg tablet 0.25 mg PO HS 08/23/20 07/29/21 History (Mirapex) febuxostat 40 mg tablet 40 mg PO QAM 10/05/20 07/29/21 History famotidine 20 mg tablet (Acid 2 mg PO QPM tab 07/06/21 07/29/21 History Knitter Hand (famotidine)) apixaban 2.5 mg tablet (Eliquis) 2.5 mg PO BID 07/29/21 07/29/21 History atorvastatin 10 mg tablet 10 mg PO HS 07/29/21 07/29/21 History benzonatate 100 mg capsule 100 mg PO TID PRN 07/29/21 07/29/21 History bumetanide 2 mg tablet 2 mg PO QAM 07/29/21 07/29/21 History colchicine 0.6 mg tablet 0.6 mg PO BID PRN 07/29/21 07/29/21 History insulin glargine 100 unit/mL (3 25 unit SUBCUT DAILY 07/29/21 07/29/21 History mL) subcutaneous pen (Lantus Solostar U-100 Insulin) melatonin 10 mg capsule 10 mg PO HS PRN 07/29/21 07/29/21 History Patient History Medical History (Updated 07/30/21 @ 12:51 by Efrne Hatch DO) Aspiration, chronic pulmonary Following with ENT and GI, 07/2020 hospitalization for PNA following EGD suspected aspiration Asthma Controlled per pt, rescue inhaler use last several mos ago Atrial fibrillation Dx 2017-on anticoagulation-follow with [facility] Breast cancer 2005- left mastectomy+ chemo and XRT with recurrence of breast CA to RT 4th & 5th ribs (oral/injectable medication) Left upper extremity restriction per pt CAD (coronary artery disease) 2 stents-LAD and D1 HORACE, July 2015. Follows with [facility]. Carotid artery stenosis, asymptomatic 70-79% stenosis of right ICA per 01/2020 carotid doppler Chronic anticoagulation Chronic diastolic (congestive) heart failure Follows with [facility], stable per note and pt-chronically sleeps in recliner Diabetes mellitus IDDM, controlled and stable per pt Dysphagia Occasional dysphagia and coughing with swallowing pills, improved without clear cause per pt. Pt denies re-visiting recommended EGD-following with PCP End stage renal disease End-stage renal disease on hemodialysis Fistula Right arm not using at present and needs further surgery GERD (gastroesophageal reflux disease) Controlled, stable per pt Hemodialysis patient Dialysis M,W,F- [place] Using temporary cath in left shoulder Hyperlipidemia Hypertension Controlled, stable per pt Hypothyroidism Port-A-Cath in place Rt chest Pulmonary hypertension Mild per 05/04/21 ECHO- RVSP 39mmHg; follows with [facility] Rib lesion Bony metastasis per bone scan, pt states is on oral and injectable tx and following with PCP Sleep apnea No current device use Urinary leakage Surgical History History of appendectomy History of breast biopsy History of cardiac cath 2017 -2 stents-follows with [facility] History of carpal tunnel release of both wrists History of colonoscopy History of heart artery stent X 2 (2016) History of left mastectomy pt reports LUE restriction History of tonsillectomy and adenoidectomy History of total abdominal hysterectomy and bilateral salpingo-oophorectomy Family History Father Myocardial infarction Heart disease Mother Hypertension Other No family history of adverse response to anesthesia No family history of bleeding disorder Social History Smoking Status: Never smoker Second Hand Exposure: No; Hx Alcohol Use: No Hx Substance Use: No Preferred Language: Mozambican Communication Ability: Effective Hand Candy Cutter Required: No Beliefs That Will Affect Care: None marital status: / Current Living Situation: Alone Current Living Situation Comment: FAMILY COMES MULTIPLE TIMES PER DAY current occupational status: retired 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 How many Children do You have: 3 How many Children do You have Comment: 4 sons - one suffered a broken neck during wrestling practice, became quadraplegic and 6 years later Other Information That Helps Us Care for You: No other: One son is MD (family practice in [place]) Feels Safe at Home: Yes Safety Concerns: Feels Safe At This Time Assistive Devices: Cane and CPAP Review of Systems Review of Systems: Unobtainable due to reduced consciousness (limited due to somnolence) Constitutional: + anorexia and + weight loss; no problem reported Eyes: no problem reported Ear, Nose, Mouth, Throat: no problem reported Respiratory: + cough; no dyspnea Cardiovascular: + edema; no chest pain Gastrointestinal: no problem reported Musculoskeletal: no problem reported Integumentary: no problem reported Neurologic: no problem reported Psychiatric: no problem reported Endocrine: no problem reported Hematologic / Lymphatic: no problem reported Physical Exam Constitutional: well developed and + frail appearing; no acute distress Eyes: + anicteric sclerae; no corneal abnormality ENMT: Mouth: + dry oral mucous membranes; no oral mucosal abnormality Neck: normal visual inspection and trachea midline Respiratory: normal respiratory effort Auscultation: + diminished lung sounds and + rales Cardiovascular: Rate/Rhythm: regular rate Heart Sounds: normal S1 and normal S2 Extremities: + edema and + AV fistula Musculoskeletal: Extremities: no cyanosis and no clubbing Skin: + turgor decreased, + ecchymosis and + pallor; no jaundice Neurologic: Motor/Sensory: no tremor and no asterixis Psychiatric: Orientation: alert, oriented to person and oriented to place Results & Data ([facility]) Vital Signs (Past 12 Hours) Vital Signs Temp Pulse Pulse Resp BP Pulse Ox 07/30/21 12:15 82 122/46 L 07/30/21 12:09 36.7 C 82 21 127/64 100 07/30/21 12:00 83 127/64 07/30/21 11:56 36.7 C 83 22 133/50 L 07/30/21 11:45 83 107/36 L 07/30/21 11:30 84 97/44 L 07/30/21 11:15 84 97/44 L 07/30/21 11:07 36.6 C 84 21 109/73 97 07/30/21 11:00 84 109/73 07/30/21 10:45 83 122/91 07/30/21 10:30 36.6 C 84 07/30/21 10:00 84 14 99/40 L 98 07/30/21 09:45 110/50 L 07/30/21 09:00 82 14 83/62 L 98 07/30/21 08:00 81 25 H 106/48 L 97 07/30/21 07:00 80 14 98 07/30/21 06:00 82 21 110/59 L 91 07/30/21 05:30 82 92 07/30/21 05:00 36.8 C 82 17 90/44 L 96 07/30/21 04:30 81 92 07/30/21 04:20 80 22 93 07/30/21 04:00 79 20 137/31 L 97 07/30/21 03:30 83 16 91 07/30/21 03:00 80 20 141/57 H 94 07/30/21 02:30 82 19 83/52 L 98 07/30/21 02:00 80 12 83/42 L 93 07/30/21 01:30 80 19 92 07/30/21 01:00 81 19 101/39 L 92 Laboratory Results Laboratory Results - last 24 hr 07/29/21 07/29/21 07/29/21 18:30 18:30 18:30 WBC 10.05 RBC 2.68 L Hgb 8.4 L Hct 27.4 L MCV 102.2 H MCH 31.3 MCHC 30.7 L RDW Std Deviation 73.5 H RDW Coeff of Oj 20.1 H Plt Count 141 MPV 10.5 H Immature Gran % (Auto) 0.6 Neut % (Auto) 61.3 Lymph % (Auto) 26.4 [place] % (Auto) 10.0 Eos % (Auto) 1.1 Baso % (Auto) 0.6 Neut # (Auto) 6.17 Lymph # (Auto) 2.65 [place] # (Auto) 1.00 H Eos # (Auto) 0.11 Baso # (Auto) 0.06 Immature Gran # (Auto) 0.06 H Absolute Nucleated RBC 0.06 H Nucleated RBC % (auto) 0.6 Polychromasia Hypochromasia Present Poikilocytosis Present Anisocytosis Present PT INR APTT PTT Ratio Sodium 133 L Potassium 4.7 Chloride 97 L Carbon Dioxide 29 Anion Gap 7 BUN 41 H Creatinine 3.29 H Est Cr Clr Drug Dosing Not Reportable Est GFR ( Amer) 14.1 Est GFR (Non-Af Amer) 12.2 BUN/Creatinine Ratio 12.5 Glucose 206 H POC Glucose Estimat Average Glucose Hemoglobin A1c Lactate Calcium 9.5 Phosphorus Magnesium 1.9 Total Bilirubin 1.4 H AST 18 ALT 7 Alkaline Phosphatase 153 H Ammonia Troponin I High Sens 587.6 H* Total Protein 5.5 L Albumin 3.0 L Globulin 2.5 Albumin/Globulin Ratio 1.2 Procalcitonin TSH Free T4 Cortisol AM Sample Nasal Screen MRSA (PCR) SARS-CoV-2, RNA, NAAT Blood Type Blood Type Recheck Antibody Screen Crossmatch 07/29/21 07/29/21 07/29/21 18:30 18:30 18:30 WBC RBC Hgb Hct MCV MCH MCHC RDW Std Deviation RDW Coeff of Oj Plt Count MPV Immature Gran % (Auto) Neut % (Auto) Lymph % (Auto) [place] % (Auto) Eos % (Auto) Baso % (Auto) Neut # (Auto) Lymph # (Auto) [place] # (Auto) Eos # (Auto) Baso # (Auto) Immature Gran # (Auto) Absolute Nucleated RBC Nucleated RBC % (auto) Polychromasia Hypochromasia Poikilocytosis Anisocytosis PT 13.9 H INR 1.3 H APTT 35.0 H PTT Ratio 1.3 Sodium Potassium Chloride Carbon Dioxide Anion Gap BUN Creatinine Est Cr Clr Drug Dosing Est GFR ( Amer) Est GFR (Non-Af Amer) BUN/Creatinine Ratio Glucose POC Glucose Estimat Average Glucose Hemoglobin A1c Lactate 1.9 Calcium Phosphorus Magnesium Total Bilirubin AST ALT Alkaline Phosphatase Ammonia Troponin I High Sens Total Protein Albumin Globulin Albumin/Globulin Ratio Procalcitonin TSH 20.431 H Free T4 0.95 Cortisol AM Sample Nasal Screen MRSA (PCR) SARS-CoV-2, RNA, NAAT Blood Type Blood Type Recheck Antibody Screen Crossmatch 07/29/21 07/29/21 07/29/21 19:13 19:54 20:40 WBC RBC Hgb Hct MCV MCH MCHC RDW Std Deviation RDW Coeff of Oj Plt Count MPV Immature Gran % (Auto) Neut % (Auto) Lymph % (Auto) [place] % (Auto) Eos % (Auto) Baso % (Auto) Neut # (Auto) Lymph # (Auto) [place] # (Auto) Eos # (Auto) Baso # (Auto) Immature Gran # (Auto) Absolute Nucleated RBC Nucleated RBC % (auto) Polychromasia Hypochromasia Poikilocytosis Anisocytosis PT INR APTT PTT Ratio Sodium Potassium Chloride Carbon Dioxide Anion Gap BUN Creatinine Est Cr Clr Drug Dosing Est GFR ( Amer) Est GFR (Non-Af Amer) BUN/Creatinine Ratio Glucose POC Glucose Estimat Average Glucose Hemoglobin A1c Lactate Calcium Phosphorus Magnesium Total Bilirubin AST ALT Alkaline Phosphatase Ammonia 19.0 Troponin I High Sens Total Protein Albumin Globulin Albumin/Globulin Ratio Procalcitonin TSH Free T4 Cortisol AM Sample Nasal Screen MRSA (PCR) SARS-CoV-2, RNA, NAAT NEGATIVE Blood Type B Positive Blood Type Recheck Antibody Screen NEGATIVE Crossmatch See Detail 07/29/21 07/29/21 07/29/21 21:12 23:22 23:52 WBC RBC Hgb 7.9 L Hct 26.2 L MCV MCH MCHC RDW Std Deviation RDW Coeff of Oj Plt Count MPV Immature Gran % (Auto) Neut % (Auto) Lymph % (Auto) [place] % (Auto) Eos % (Auto) Baso % (Auto) Neut # (Auto) Lymph # (Auto) [place] # (Auto) Eos # (Auto) Baso # (Auto) Immature Gran # (Auto) Absolute Nucleated RBC Nucleated RBC % (auto) Polychromasia Hypochromasia Poikilocytosis Anisocytosis PT INR APTT PTT Ratio Sodium Potassium Chloride Carbon Dioxide Anion Gap BUN Creatinine Est Cr Clr Drug Dosing Est GFR ( Amer) Est GFR (Non-Af Amer) BUN/Creatinine Ratio Glucose POC Glucose Estimat Average Glucose Hemoglobin A1c Lactate Calcium Phosphorus Magnesium Total Bilirubin AST ALT Alkaline Phosphatase Ammonia Troponin I High Sens Total Protein Albumin Globulin Albumin/Globulin Ratio Procalcitonin TSH Free T4 Cortisol AM Sample Nasal Screen MRSA (PCR) Negative SARS-CoV-2, RNA, NAAT Blood Type Blood Type Recheck B Positive Antibody Screen Crossmatch 07/29/21 07/30/21 07/30/21 23:52 00:57 05:33 WBC RBC Hgb Hct MCV MCH MCHC RDW Std Deviation RDW Coeff of Oj Plt Count MPV Immature Gran % (Auto) Neut % (Auto) Lymph % (Auto) [place] % (Auto) Eos % (Auto) Baso % (Auto) Neut # (Auto) Lymph # (Auto) [place] # (Auto) Eos # (Auto) Baso # (Auto) Immature Gran # (Auto) Absolute Nucleated RBC Nucleated RBC % (auto) Polychromasia Hypochromasia Poikilocytosis Anisocytosis PT INR APTT PTT Ratio Sodium Potassium Chloride Carbon Dioxide Anion Gap BUN Creatinine Est Cr Clr Drug Dosing Est GFR ( Amer) Est GFR (Non-Af Amer) BUN/Creatinine Ratio Glucose POC Glucose 198 H Estimat Average Glucose Hemoglobin A1c Lactate Calcium Phosphorus Magnesium Total Bilirubin AST ALT Alkaline Phosphatase Ammonia Troponin I High Sens 658.4 H* Total Protein Albumin Globulin Albumin/Globulin Ratio Procalcitonin 0.86 H TSH Free T4 Cortisol AM Sample Nasal Screen MRSA (PCR) SARS-CoV-2, RNA, NAAT Blood Type Blood Type Recheck Antibody Screen Crossmatch 07/30/21 07/30/21 07/30/21 05:33 05:33 05:33 WBC 11.50 H RBC 2.57 L Hgb 8.0 L Hct 26.0 L MCV 101.2 H MCH 31.1 MCHC 30.8 L RDW Std Deviation 73.2 H RDW Coeff of Oj 20.1 H Plt Count 148 MPV 10.4 Immature Gran % (Auto) 0.6 Neut % (Auto) 67.4 Lymph % (Auto) 23.0 [place] % (Auto) 7.3 Eos % (Auto) 1.4 Baso % (Auto) 0.3 Neut # (Auto) 7.75 H Lymph # (Auto) 2.64 [place] # (Auto) 0.84 H Eos # (Auto) 0.16 Baso # (Auto) 0.04 Immature Gran # (Auto) 0.07 H Absolute Nucleated RBC Nucleated RBC % (auto) Polychromasia 1+ Hypochromasia Poikilocytosis Anisocytosis Present PT 13.7 H INR 1.3 H APTT 35.4 H PTT Ratio 1.3 Sodium 134 L Potassium 5.0 Chloride 98 Carbon Dioxide 27 Anion Gap 9 BUN 47 H Creatinine 3.76 H D Est Cr Clr Drug Dosing 11.1 Est GFR ( Amer) 12.0 Est GFR (Non-Af Amer) 10.4 BUN/Creatinine Ratio 12.5 Glucose 185 H POC Glucose Estimat Average Glucose Hemoglobin A1c Lactate Calcium 9.0 Phosphorus 3.0 Magnesium 1.9 Total Bilirubin 1.5 H AST 18 ALT 7 Alkaline Phosphatase 135 H Ammonia Troponin I High Sens Total Protein 5.4 L Albumin 2.9 L Globulin 2.5 Albumin/Globulin Ratio 1.2 Procalcitonin TSH Free T4 Cortisol AM Sample Nasal Screen MRSA (PCR) SARS-CoV-2, RNA, NAAT Blood Type Blood Type Recheck Antibody Screen Crossmatch 07/30/21 07/30/21 07/30/21 05:33 05:33 05:58 WBC RBC Hgb Hct MCV MCH MCHC RDW Std Deviation RDW Coeff of Oj Plt Count MPV Immature Gran % (Auto) Neut % (Auto) Lymph % (Auto) [place] % (Auto) Eos % (Auto) Baso % (Auto) Neut # (Auto) Lymph # (Auto) [place] # (Auto) Eos # (Auto) Baso # (Auto) Immature Gran # (Auto) Absolute Nucleated RBC Nucleated RBC % (auto) Polychromasia Hypochromasia Poikilocytosis Anisocytosis PT INR APTT PTT Ratio Sodium Potassium Chloride Carbon Dioxide Anion Gap BUN Creatinine Est Cr Clr Drug Dosing Est GFR ( Amer) Est GFR (Non-Af Amer) BUN/Creatinine Ratio Glucose POC Glucose 179 H Estimat Average Glucose Pending Hemoglobin A1c Pending Lactate Calcium Phosphorus Magnesium Total Bilirubin AST ALT Alkaline Phosphatase Ammonia Troponin I High Sens Total Protein Albumin Globulin Albumin/Globulin Ratio Procalcitonin TSH Free T4 Cortisol AM Sample Pending Nasal Screen MRSA (PCR) SARS-CoV-2, RNA, NAAT Blood Type Blood Type Recheck Antibody Screen Crossmatch 07/30/21 09:46 WBC RBC Hgb Hct MCV MCH MCHC RDW Std Deviation RDW Coeff of Oj Plt Count MPV Immature Gran % (Auto) Neut % (Auto) Lymph % (Auto) [place] % (Auto) Eos % (Auto) Baso % (Auto) Neut # (Auto) Lymph # (Auto) [place] # (Auto) Eos # (Auto) Baso # (Auto) Immature Gran # (Auto) Absolute Nucleated RBC Nucleated RBC % (auto) Polychromasia Hypochromasia Poikilocytosis Anisocytosis PT INR APTT PTT Ratio Sodium Potassium Chloride Carbon Dioxide Anion Gap BUN Creatinine Est Cr Clr Drug Dosing Est GFR ( Amer) Est GFR (Non-Af Amer) BUN/Creatinine Ratio Glucose POC Glucose 170 H Estimat Average Glucose Hemoglobin A1c Lactate Calcium Phosphorus Magnesium Total Bilirubin AST ALT Alkaline Phosphatase Ammonia Troponin I High Sens Total Protein Albumin Globulin Albumin/Globulin Ratio Procalcitonin TSH Free T4 Cortisol AM Sample Nasal Screen MRSA (PCR) SARS-CoV-2, RNA, NAAT Blood Type Blood Type Recheck Antibody Screen Crossmatch PG Care Time/CCT Total # of Minutes Spent Total Time Spent with Patient: Total time spent is greater than 50% in coordination of care (as documented) at patient's floor/unit and/or counseling patient: Coding Level of Care Code 38705 Inpt Consult Level 5 Diagnoses Hypotension I95.9 Upper GI bleed K92.2 End-stage renal disease on hemodialysis N18.6; Z99.2 Anemia D64.9 S/P dialysis catheter insertion Z95.828; Z99.2
--- NOTE | 2021-07-30 13:27 | XCELERA ---
[id number]
--- NOTE | 2021-07-30 14:58 | Billing Data ---
Date of Service July 30, 2021 Coding Level of Care Code 59566 Initial Inpt Care Lvl 3
[2021-07-30 17:31] LABS: Hematocrit (blood only) 33.3 % (37-47); Hemoglobin 10.5 g/dL (12.0-16.0)
[2021-07-30] MEDS: DOCUSATE SODIUM 100 MG CAP PO SCH (21:14)
[2021-07-30] MEDS: ATORVASTATIN 10 MG TAB PO SCH (21:14)
[2021-07-30] MEDS: FLUTICASONE/VILANTEROL 200/25MCG 14 PUFFS/INHALER INH SCH (21:15)
[2021-07-30] MEDS: FAMOTIDINE 20 MG TAB PO SCH (21:15)
[2021-07-30] MEDS: PRAMIPEXOLE DIHYDROCHLO 0.25 MG TAB PO SCH (21:16)
--- NOTE | 2021-07-30 22:16 | Consultation Report ---
GASTROENTEROLOGY CONSULTATION DATE OF SERVICE: 07/30/2021 RACE: . ATTENDING PHYSICIAN: Dr. Cruz. CONSULTING PHYSICIAN: Dr. Wei. REASON FOR CONSULTATION: Questionable GI bleed. HISTORY OF PRESENT ILLNESS: Emily Narvaez is an 86-year-old female with an extensive past me dical history that includes atrial fibrillation, on long-term anticoagulant use, coronary artery dise ase, chronic diastolic heart failure, end-stage renal disease, on hemodialysis, who presented to the Department of Emergency Medicine with change in her mental status, questionable upper GI bleeding wit h the patient being notably lethargic and hypotensive. She was started on Protonix drip and was give n IV fluids. Upon arrival, she was noted to have an H and H of 8.4 and 27.4. Due to hypotension, trent mullen was admitted to the ICU. Her Eliquis and Plavix were held. Repeat H and H this morning showed hem oglobin of 8.0 and hematocrit of 26.0. At the time that I saw the patient, she was receiving hemodia lysis and was receiving 2 units of packed red blood cells during dialysis. Repeat H and H has not be en obtained as of this time. The patient does have an extensive medical history and does have a code status of DNR/DNI. It should be noted that she was hospitalized for an aspiration pneumonia in 07/31 and due to complaints of dysphagia, she underwent endoscopy, though the procedure was aborted as the patient could not tolerate anesthesia. The patient is not a reliable historian at present. Nurs ing staff reports that she did have a dark stool upon arrival to the ICU and no further overt GI bloo d loss has been noted since that time. The patient has not had any hematemesis. She denies any abdo julius pain, though again her reliability is uncertain at this time. She was seen in consultation by nephrology as well as cardiology and critical care medicine as well. At present, she is hemodynamica lly stable with a pulse of 80 and a blood pressure of 111/45. PAST MEDICAL HISTORY: Includes chronic aspiration, asthma, atrial fibrillation, history of breast c ancer, coronary artery disease, chronic anticoagulation therapy, chronic diastolic heart failure, amarilys betes, end-stage renal disease, on hemodialysis, GERD, hyperlipidemia, hypertension, hypothyroidism, pulmonary hypertension, sleep apnea. PAST SURGICAL HISTORY: Includes appendectomy, breast biopsy, carpal tunnel release in both wrists, c ardiac catheterization with stent placement, left mastectomy, tonsillectomy and adenoidectomy, TRINH jim BSO. ALLERGIES: SUDAFED AND HYDROXYZINE. MEDICATIONS: At present include albuterol via nebulizer every 6 hours p.r.n., albuterol inhaler, Lip itor 10 mg p.o. at bedtime, Tessalon Perles 100 mg p.o. t.i.d. p.r.n., Colace 100 mg p.o. at bedtime, Pepcid 20 mg p.o. q.p.m., sliding scale insulin, Lantus 10 units subQ q.a.m., levothyroxine 150 mcg p.o. daily, melatonin 9 mg p.o. at bedtime, midodrine 2.5 mg p.o. t.i.d., midodrine HCl 10 mg p.o. da gladys, pramipexole 0.25 mg p.o. at bedtime, Protonix drip at 8 mg per hour. SOCIAL HISTORY: She is a , currently lives alone, former [employer] employee. As per the [facility] chart, no tobacco, alcohol, or illicit drug use. FAMILY HISTORY: Unobtainable. REVIEW OF SYSTEMS: Unobtainable. PHYSICAL EXAMINATION: VITAL SIGNS: Temperature 36.7, pulse 82, respirations 20, blood pressure 116/57, pulse ox 96% on 2 l iters via nasal cannula. GENERAL: Chronic ill-appearing, in no acute distress. HEAD: Normocephalic, atraumatic. EYES: Pupils are equally round. Sclerae are nonicteric. NECK: Soft, supple. CHEST: Decreased breath sounds in the bilateral bases. CARDIOVASCULAR: Irregularly irregular. ABDOMEN: Soft, nontender, nondistended, positive bowel sounds. There is no appreciable hepatospleno megaly. EXTREMITIES: There is no pitting edema. LABORATORY STUDIES: Were reviewed in the HPI. IMPRESSION: An 86-year-old female who presented with mental status changes, was noted to h ave an elevated troponin. She has end-stage renal disease, on chronic hemodialysis and questionable upper gastrointestinal bleeding. PLAN: At present, her hemoglobin has remained stable throughout her hospitalization. She did have a slight dip from 8.4 to 7.9; however, repeat this morning was 8.0 for her hemoglobin. Due to her chron ic medical conditions as well as her inability to tolerate EGD in almost 1 calendar year ago and wors ening overall health since that time, I do not believe she is an appropriate candidate to undergo inv asive testing. I would recommend treatment with conservative management. I would continue the Abdulaziz nix drip. I would not recommend that she undergo any invasive testing unless she would have signific ant overt GI blood loss, and even at that time, I am not sure that she would tolerate this and have a good clinical outcome. I will follow her clinical course during her hospitalization and make furthe r recommendations as needed. Once again, thanks for allowing me to participate in the care of this patient. If you have any fur er questions, please do not hesitate in contacting me. Job ID: [id number]
[2021-07-31] MEDS: PANTOprazole 40 MG in DEXTROSE 5% 100 ML IV SCH ×5 (01:20→23:26)
[2021-07-31] MEDS: LEVOTHYROXINE SODIUM 150 MCG TABLET PO SCH (05:28)
[2021-07-31] MEDS: INSULIN ASPART PER UNIT SC SCH ×4 (05:33→23:27)
[2021-07-31 05:58] LABS: INR 1.2 (0.9-1.1); Partial Thromboplastin Ratio 1.2; Partial Thromboplastin Time 33.3 Seconds (21.0-31.0); Prothrombin Time 13.1 Seconds (9.0-12.0)
[2021-07-31 06:16] LABS: Albumin Globulin Ratio 1.2 (0.9-2); Albumin Level 3.1 gm/dl (3.4-5.0); BUN Creatinine Ratio 9.9 (10-20); Bilirubin,Total 2.1 mg/dl (0.2-1.0); Calcium 8.6 mg/dl (8.5-10.1); Creatinine Clr Calc Pharmacy 13.8 ml/min; Est GFR (African American) 15.6 ml/min; Est GFR (Non-African American) 13.4 ml/min; Globulin 2.6 gm/dl (2.5-4.0); Magnesium 1.8 mg/dl (1.7-2.4); Potassium 4.1 mmol/L (3.5-5.1); Total Protein 5.7 gm/dl (6.0-8.3)
--- NOTE | 2021-07-31 06:40 | Electrocardiogram Report ---
Test Reason : Blood Pressure : / mmHG Vent. Rate : 085 BPM Atrial Rate : 085 BPM P-R Int : 164 ms QRS Dur : 080 ms QT Int : 336 ms P-R-T Axes : 068 -51 -74 degrees QTc Int : 399 ms Normal sinus rhythm Left axis deviation Low voltage QRS Cannot rule out Anterior infarct (cited on or before 29-JUL-2021) Abnormal ECG When compared with ECG of 01-MAY-2021 18:00, No significant change Confirmed by Junior Jurado ([id number]) on 07/31/2021 6:39:46 AM Referred By: REFERRED SELF Confirmed By:Junior Jurado
[2021-07-31 06:41] LABS: Basophils # (auto) 0.07 K/uL (0-0.2); Basophils % (auto) 0.5 %; Eosinophils % (auto) 1.5 %; Hematocrit (blood only) 32.5 % (37-47); Hemoglobin 10.1 g/dL (12.0-16.0); Immature Granulocytes # (auto) 0.05 K/uL (0.00-0.02); Immature Granulocytes % (auto) 0.4 %; Lymphocytes # (auto) 2.58 K/uL (1.2-3.4); Lymphocytes % (auto) 19.7 %; Mean Corpuscular Hemoglobin 30.1 pg (25-34); Mean Corpuscular Hgb Conc 31.1 g/dL (32-36); Mean Platelet Volume 11.1 fL (7.4-10.4); Monocytes # (auto) 0.85 K/uL (0.11-0.59); Monocytes % (auto) 6.5 %; Neutrophils # (auto) 9.36 K/uL (1.4-6.5); Neutrophils % (auto) 71.4 %; Nucleated RBC # (auto) 0.12 K/uL (0-0); Nucleated RBC % (auto) 0.9 %; Platelet Count 148 K/uL (130-400); RDW Coefficient of Variation 21.7 % (11.5-14.5); RDW Standard Deviation 73.2 fL (36.4-46.3); Red Blood Count 3.35 M/uL (4.2-5.4); White Blood Count 13.11 K/uL (4.8-10.8)
--- NOTE | 2021-07-31 06:58 | Electrocardiogram Report ---
Test Reason : Blood Pressure : / mmHG Vent. Rate : 082 BPM Atrial Rate : 082 BPM P-R Int : 152 ms QRS Dur : 082 ms QT Int : 334 ms P-R-T Axes : 074 -58 253 degrees QTc Int : 390 ms Poor data quality, interpretation may be adversely affected Sinus rhythm with Premature supraventricular complexes Left axis deviation Pulmonary disease pattern Septal infarct (cited on or before 29-JUL-2021) Cannot rule out Inferior infarct , age undetermined Abnormal ECG When compared with ECG of 29-JUL-2021 17:33, (unconfirmed) Premature supraventricular complexes are now Present Questionable change in initial forces of Septal leads Confirmed by Junior Jurado ([id number]) on 07/31/2021 6:58:06 AM Referred By: REFERRED SELF Confirmed By:Junior Jurado
[2021-07-31 07:14] LABS: Anisocytosis Present; Polychromasia 1+
[2021-07-31 08:36] LABS: Estimated Average Glucose 111 mg/dl; Hemoglobin A1C 5.5 % (4.5-5.6)
[2021-07-31] MEDS ORDERED: MIDODRINE HCL 10 MG TAB PO STA (08:54)
[2021-07-31] MEDS ORDERED: INSULIN GLARGINE SOLOSTAR 100 UNITS/ML 3 ML PEN SC SCH (09:00)
[2021-07-31] MEDS: [UNRECOGNIZED DRUG - OTHER] SCH ×2 (09:01→15:34)
--- NOTE | 2021-07-31 09:01 | Nephrology Progress Note ---
Date of Service July 31, 2021 Assessment & Plan (1) End-stage renal disease on hemodialysis: Plan: Completed emergent HD yesterday for UF. PRBC transfusion support provided with HD. Midodrine provided pretreatment for BP support. Additional 10 mg PO midodrine to be provided this AM prior to HD. HD today for additional UF, as tolerated. Resume MWF HD schedule. Volume status notably improved. BP remains low but acceptable. Electrolytes controlled. Renal diet with 1 L daily fluid restriction. Medications appropriately dosed for kidney dysfunction. (2) Hypotension: Plan: Midodrine preHD for BP support. PRBC (3) Upper GI bleed: Plan: No additional signs of bleeding. GI consultation reviewed; no plan for EGD or colonoscopy at thsi time. (4) Anemia: Plan: 2 units PRBC support provided yesterday. Maintained on Micera as outpatient. Admission and Anticipated Discharge Date Admission Date: July 29, 2021 Subjective No acute events overnight. Tolerated HD yesterday without complications. Net UF 2.4 L. Cough improved following treatment. Emily was coughing this AM. She said that it started after she started drinking some juice with breakfast. She slept well last night and overall reports significant improvement. Breathing comfortably. No melena or hematochezia. Review of Systems Review of Systems: All systems reviewed & are unremarkable except as noted in HPI & below Physical Exam Constitutional: well developed and + frail appearing; no acute distress Eyes: + anicteric sclerae; no corneal abnormality ENMT: Mouth: no oral mucosal abnormality and oral mucous membranes not dry Neck: normal visual inspection and trachea midline Respiratory: normal respiratory effort Auscultation: + rales Cardiovascular: Rate/Rhythm: regular rate Heart Sounds: normal S1 and normal S2 Extremities: + edema and + AV fistula Musculoskeletal: Extremities: no cyanosis and no clubbing Skin: + turgor decreased; no jaundice Neurologic: Motor/Sensory: no tremor and no asterixis Psychiatric: Orientation: alert, oriented to person and oriented to place Results & Data ([facility]) Vital Signs (Past 12 Hours) Vital Signs Temp Pulse Resp BP Pulse Ox 07/31/21 05:17 36.8 C 77 20 109/60 96 07/31/21 00:18 36.5 C 81 20 107/62 95 Laboratory Results Laboratory Results - last 24 hr 07/29/21 07/30/21 07/30/21 19:54 05:33 05:33 WBC RBC Hgb Hct MCV MCH MCHC RDW Std Deviation RDW Coeff of Oj Plt Count MPV Immature Gran % (Auto) Neut % (Auto) Lymph % (Auto) Kern % (Auto) Eos % (Auto) Baso % (Auto) Neut # (Auto) Lymph # (Auto) Kern # (Auto) Eos # (Auto) Baso # (Auto) Immature Gran # (Auto) Absolute Nucleated RBC Nucleated RBC % (auto) Polychromasia Anisocytosis PT INR APTT PTT Ratio Sodium Potassium Chloride Carbon Dioxide Anion Gap BUN Creatinine Est Cr Clr Drug Dosing Est GFR ( Amer) Est GFR (Non-Af Amer) BUN/Creatinine Ratio Glucose POC Glucose Estimat Average Glucose 111 Hemoglobin A1c 5.5 Calcium Magnesium Total Bilirubin AST ALT Alkaline Phosphatase Troponin I High Sens Total Protein Albumin Globulin Albumin/Globulin Ratio Cortisol AM Sample 7.56 Blood Type B Positive Antibody Screen NEGATIVE Crossmatch See Detail 07/30/21 07/30/21 07/30/21 09:46 13:05 16:52 WBC RBC Hgb Hct MCV MCH MCHC RDW Std Deviation RDW Coeff of Oj Plt Count MPV Immature Gran % (Auto) Neut % (Auto) Lymph % (Auto) Kern % (Auto) Eos % (Auto) Baso % (Auto) Neut # (Auto) Lymph # (Auto) Kern # (Auto) Eos # (Auto) Baso # (Auto) Immature Gran # (Auto) Absolute Nucleated RBC Nucleated RBC % (auto) Polychromasia Anisocytosis PT INR APTT PTT Ratio Sodium Potassium Chloride Carbon Dioxide Anion Gap BUN Creatinine Est Cr Clr Drug Dosing Est GFR ( Amer) Est GFR (Non-Af Amer) BUN/Creatinine Ratio Glucose POC Glucose 170 H 122 H Estimat Average Glucose Hemoglobin A1c Calcium Magnesium Total Bilirubin AST ALT Alkaline Phosphatase Troponin I High Sens 745.1 H* Total Protein Albumin Globulin Albumin/Globulin Ratio Cortisol AM Sample Blood Type Antibody Screen Crossmatch 07/30/21 07/30/21 07/30/21 16:52 18:51 23:39 WBC RBC Hgb 10.5 L Hct 33.3 L MCV MCH MCHC RDW Std Deviation RDW Coeff of Oj Plt Count MPV Immature Gran % (Auto) Neut % (Auto) Lymph % (Auto) Kern % (Auto) Eos % (Auto) Baso % (Auto) Neut # (Auto) Lymph # (Auto) Kern # (Auto) Eos # (Auto) Baso # (Auto) Immature Gran # (Auto) Absolute Nucleated RBC Nucleated RBC % (auto) Polychromasia Anisocytosis PT INR APTT PTT Ratio Sodium Potassium Chloride Carbon Dioxide Anion Gap BUN Creatinine Est Cr Clr Drug Dosing Est GFR ( Amer) Est GFR (Non-Af Amer) BUN/Creatinine Ratio Glucose POC Glucose 102 H 105 H Estimat Average Glucose Hemoglobin A1c Calcium Magnesium Total Bilirubin AST ALT Alkaline Phosphatase Troponin I High Sens Total Protein Albumin Globulin Albumin/Globulin Ratio Cortisol AM Sample Blood Type Antibody Screen Crossmatch 07/31/21 07/31/21 07/31/21 00:18 05:20 05:20 WBC 13.11 H RBC 3.35 L Hgb 10.1 L Hct 32.5 L MCV 97.0 MCH 30.1 MCHC 31.1 L RDW Std Deviation 73.2 H RDW Coeff of Oj 21.7 H Plt Count 148 MPV 11.1 H Immature Gran % (Auto) 0.4 Neut % (Auto) 71.4 Lymph % (Auto) 19.7 Kern % (Auto) 6.5 Eos % (Auto) 1.5 Baso % (Auto) 0.5 Neut # (Auto) 9.36 H Lymph # (Auto) 2.58 Kern # (Auto) 0.85 H Eos # (Auto) 0.20 Baso # (Auto) 0.07 Immature Gran # (Auto) 0.05 H Absolute Nucleated RBC 0.12 H Nucleated RBC % (auto) 0.9 Polychromasia 1+ Anisocytosis Present PT 13.1 H INR 1.2 H APTT 33.3 H PTT Ratio 1.2 Sodium Potassium Chloride Carbon Dioxide Anion Gap BUN Creatinine Est Cr Clr Drug Dosing Est GFR ( Amer) Est GFR (Non-Af Amer) BUN/Creatinine Ratio Glucose POC Glucose Estimat Average Glucose Hemoglobin A1c Calcium Magnesium Total Bilirubin AST ALT Alkaline Phosphatase Troponin I High Sens 716.1 H* Total Protein Albumin Globulin Albumin/Globulin Ratio Cortisol AM Sample Blood Type Antibody Screen Crossmatch 07/31/21 07/31/21 05:20 05:26 WBC RBC Hgb Hct MCV MCH MCHC RDW Std Deviation RDW Coeff of Oj Plt Count MPV Immature Gran % (Auto) Neut % (Auto) Lymph % (Auto) Kern % (Auto) Eos % (Auto) Baso % (Auto) Neut # (Auto) Lymph # (Auto) Kern # (Auto) Eos # (Auto) Baso # (Auto) Immature Gran # (Auto) Absolute Nucleated RBC Nucleated RBC % (auto) Polychromasia Anisocytosis PT INR APTT PTT Ratio Sodium 135 L Potassium 4.1 Chloride 100 Carbon Dioxide 27 Anion Gap 8 BUN 30 H Creatinine 3.03 H D Est Cr Clr Drug Dosing 13.8 Est GFR ( Amer) 15.6 Est GFR (Non-Af Amer) 13.4 BUN/Creatinine Ratio 9.9 L Glucose 116 H POC Glucose 145 H Estimat Average Glucose Hemoglobin A1c Calcium 8.6 Magnesium 1.8 Total Bilirubin 2.1 H AST 20 ALT 7 Alkaline Phosphatase 143 H Troponin I High Sens Total Protein 5.7 L Albumin 3.1 L Globulin 2.6 Albumin/Globulin Ratio 1.2 Cortisol AM Sample Blood Type Antibody Screen Crossmatch PG Care Time/CCT Total # of Minutes Spent Total Time Spent with Patient: Total time spent is greater than 50% in coordination of care (as documented) at patient's floor/unit and/or counseling patient: Coding Level of Care Code 53621 Subseq Hosp Care Lvl 3 Diagnoses End-stage renal disease on hemodialysis N18.6; Z99.2 Hypotension I95.9 Upper GI bleed K92.2 Anemia D64.9
[2021-07-31] MEDS: MIDODRINE HCL 2.5 MG TAB PO SCH ×3 (09:02→17:36)
[2021-07-31] MEDS: INSULIN GLARGINE SOLOSTAR 100 UNITS/ML 3 ML PEN SC SCH (09:03)
--- NOTE | 2021-07-31 09:44 | Cardiology Progress Note ---
Date of Service July 31, 2021 Assessment & Plan (1) Atrial fibrillation: Plan: -the patient is currently in sinus rhythm. -renally adjusted Eliquis currently on hold due to GI bleed. -she does not require rate controlling medications. (2) CAD (coronary artery disease): Plan: -s/p LAD HORACE and D1 HORACE, July 2015 -quiescent on current medical regimen. -Plavix currently on due to GI bleed. (3) Chronic diastolic CHF (congestive heart failure): Plan: -compensated at this time. -volume status managed by hemodialysis. Admission and Anticipated Discharge Date Admission Date: July 29, 2021 Subjective Patient is resting comfortably in bed without complaints of chest pain, dyspnea, or palpitations. Physical Exam Physical Exam: In general is well-developed well-nourished white female no acute distress. HEENT exam is negative. Neck is supple with full carotid u pstrokes. No carotid bruits. No JVD. There is no thyromegaly. Cardiovascular exam reveals an irregular irregular rhythm with distant heart sounds. Lungs are clear without rales, rhonchi, or wheezes. Abdomen is soft nontender without bruits. Extremities note a thrill and bruit over the right upper extremity fistula. 1+ edema is noted distal to the knees bilaterally. Results & Data ([facility]) Vital Signs (Past 12 Hours) Vital Signs Temp Pulse Resp BP Pulse Ox 07/31/21 08:00 36.7 C 71 21 125/50 L 96 07/31/21 05:17 36.8 C 77 20 109/60 96 07/31/21 00:18 36.5 C 81 20 107/62 95 PG Care Time/CCT Total # of Minutes Spent Total Time Spent with Patient: Total time spent is greater than 50% in coordination of care (as documented) at patient's floor/unit and/or counseling patient: Coding Level of Care Code 93848 Subseq Hosp Care Lvl 3 Diagnoses Atrial fibrillation I48.0 Atrial fibrillation type: paroxysmal CAD (coronary artery disease) I25.10 Coronary Disease-Associated Artery/Lesion type: [place] artery [place] vs. transplanted heart: [place] heart Associated angina: unspecified whether angina present Chronic diastolic CHF (congestive heart failure) I50.32 (1) Atrial fibrillation Atrial fibrillation type: paroxysmal Qualified Code(s): I48.0 - Paroxysmal atrial fibrillation (2) CAD (coronary artery disease) Coronary Disease-Associated Artery/Lesion type: [place] artery [place] vs. transplanted heart: [place] heart Associated angina: unspecified whether angina present Qualified Code(s): I25.10 - Atherosclerotic heart disease of [place] coronary artery without angina pectoris
--- NOTE | 2021-07-31 09:44 | Gastroenterology Progress Note ---
Date of Service July 31, 2021 Assessment & Plan (1) Anemia: Plan: Possible UGI bleed. H/H 10./32.5. 1) Continue Protonix gtt 2) Continue to monitor H/H 3) Supportive care per primary team No plans for invasive GI work-up at the present time. Admission and Anticipated Discharge Date Admission Date: July 29, 2021 Supervising Physician Co-Signing Physician Notes Agree with YOANDY Sutton as above Continue current therapy and supportive care No plans for invasive testing. Subjective Patient is an 86 yo female with possible UGI bleeding. H/H presently 10./32.5. She denies overt GI bleeding. She acknowledges fatigue. She denies n/v/d. She is on a Protonix gtt and the decision has been made to proceed with conservative management from a GI standpoint. She offers no new complaints at present. Review of Systems Constitutional: no fever and no chills Respiratory: + cough Cardiovascular: no chest pain Gastrointestinal: + melena (one episode on 07/30 documented by nursing staff; patient unaware); no abdominal pain, no nausea, no vomiting, no hematemesis, no change in bowel habits and no blood in stools Physical Exam Constitutional: well developed Respiratory: normal respiratory effort Cardiovascular: Rate/Rhythm: regular rate Gastrointestinal (Abdomen): Inspection/Auscultation: abdomen normal to inspection Musculoskeletal: Head/Neck/Chest: normocephalic Psychiatric: Orientation: alert and oriented x 3 Results & Data Results & Data ([facility]) Vital Signs (Past 12 Hours) Vital Signs Temp Pulse Resp BP Pulse Ox 07/31/21 08:00 36.7 C 71 21 125/50 L 96 07/31/21 05:17 36.8 C 77 20 109/60 96 07/31/21 00:18 36.5 C 81 20 107/62 95 PG Care Time/CCT Total # of Minutes Spent Total Time Spent with Patient: Total time spent is greater than 50% in coordination of care (as documented) at patient's floor/unit and/or counseling patient: Coding Level of Care Code 20157 Subseq Hosp Care Lvl 3 Diagnoses Anemia D64.9
[2021-07-31] MEDS ORDERED: Nursing to Pharmacy Communication SCH (09:45)
--- NOTE | 2021-07-31 10:24 | Hospitalist Progress Note ---
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 2 units transfused with repeat H&H appropriate rise, pending rechecks for stability. 10.1 this morning GI consulted. Following for clinical stability, no plans for endoscopy at this time. Patient is high risk for intervention. Eliquis, Plavix held for bleeding. If hemoglobin stable, resume Plavix tomorrow (2) Coronary disease: Plan: History of CAD/NSTEMI History of HORACE to LAD and D1 07/2015 History of 70-79% stenosis of right ICA TTE 05/04/2021: LV EF 55-60%. No regional wall motion abnormalities. Septal flattening during diastole. Moderate concentric LVH. Moderately dilated right ventricle with moderately reduced right ventricular systolic function. Mild mitral regurg, moderate tricuspid regurg, mild pulmonary hypertension RVSP 39 mmHg, small pericardial effusion without evidence of tamponade.? Cor pulmonale 07/30/2021 TTE: Normal LV SF, EF 55-60%, no wall motion abnormalities. Moderate right ventricular dilation with moderately reduced systolic function. Moderate biatrial dilation. Mild mitral regurg. Severe tricuspid regurg. RVSP 54 mmHg. Small pericardial effusion without evidence of tamponade. Compared to prior tricuspid regurg no severe, pulmonary hypertension is now moderate, pericardial effusion mildly increased On bumetanide 2 mg every morning, Plavix 75 mg every morning, atorvastatin 10 mg p.o. 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 Known coronary disease, hold Plavix in the setting of acute bleeding. Elevated troponin and absence of EKG findings and chest pain and suspect demand ischemia. Trend levels, no acute intervention at this time and intervention would require anticoagulation/platelet inhibitors which are contraindicated in the setting of her acute bleed. May trial Plavix tomorrow if hemoglobin stable appreciate recommendations. History of CHF with diastolic failure. Also dialysis dependent, anuric. Cautious fluid support. Dialysis as noted (3) End-stage renal disease on hemodialysis: Plan: Patient with Saturday dialysis, last dialysis 1 day prior to admission - 06/29/21 R arm basilic vein transposition, dialysis via permacath Volume overloaded on admitting exam with normal oxygen saturations on 2 L Nephrology consulted, dialysis 07/30, undergoing dialysis 07/31 Potassium within normal limits, (4) Chronic cough: Plan: Chronic cough nonproductive with dyspnea on exertion, and history of dysphagia Has followed with pulmonology in the past last visit 07/18/2021. Suspected multifactorial but has failed all interventions. Neurontin increased was deferred in the setting of end-stage renal disease on dialysis. Did recommend referral to tertiary care center for evaluation and additional management. Patient's cough does resolve at night, was suspicious for neurogenic/habitualtic cough/psychogenic. No cough was observed overnight by ICU provider, although cough has returned daytime at bedside. No acute intervention for this at this time (5) Atrial flutter with rapid ventricular response: Plan: History of atrial flutter with RVR, on DOAC anticoagulation Eliquis 2.5 mg p.o. twice daily held on admission for acute bleeding Adequate rate control (6) Confusion and disorientation: Plan: Suspected due to acute hypotension with GI bleed on admission Clinically improving (7) Diabetes: Plan: On home insulin glargine 25 units daily Glucose checks AC/at bedtime Goal BSG 1001 40 Basal/bolus SSI and adequate glycemic control today. (8) NSTEMI (non-ST elevated myocardial infarction): Plan: See above (9) Atrial fibrillation: Plan: See above (10) Hyperlipidemia: Plan: Continue atorvastatin (11) Carotid artery stenosis, asymptomatic: Plan: As previously noted Admission and Anticipated Discharge Date Admission Date: July 29, 2021 Subjective No chest pain or chest pressure. Endorses chronic cough, is not coughing at time of bedside assessment. Denies shortness of breath, difficulty breathing, lightheadedness, dizziness. Colored bowel movements yesterday, no acute bleeding today. Hemoglobin 10.1, +/- one-point of prior. While in bed unde rgoing dialysis with stable blood pressure at time of assessment. Antiplatelet Review of Systems Review of Systems: All systems reviewed & are unremarkable except as noted in Subjective Physical Exam Physical Exam: General: Oriented to name, year, and place. No acute distress. undergoing dialysis at time of visit HEENT: Atraumatic, normocephalic. Vision and hearing grossly intact. Extraocular movements intact without nystagmus. Thorax: Right port present, left subclavian dialysis catheter present. Pulm: Diminished, without wheezes/rales symmetrical chest rise. No increase in work of breathing. No respiratory distress. On nasal cannula. Cardiac: Irregular, systolic murmur is present Radial pulses intact and symmetrical. Abdominal: Nontender, nondistended, soft. BS present. Extremities: Pitting edema is present in the upper and lower extremities bilaterally without asymmetry. R UE fistula in place with palpable thrill, overlying edema. 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 Results & Data Results & Data ([facility]) Vital Signs (Past 12 Hours) Vital Signs Temp Pulse Pulse Resp BP BP Pulse Ox 07/31/21 09:36 73 125/50 L 07/31/21 09:22 36.5 C 85 07/31/21 08:00 36.7 C 71 21 125/50 L 96 07/31/21 05:17 36.8 C 77 20 109/60 96 07/31/21 00:18 36.5 C 81 20 107/62 95 PG Care Time/CCT Total # of Minutes Spent Total Time Spent with Patient: Total time spent is greater than 50% in coordination of care (as documented) at patient's floor/unit and/or counseling patient: Coding Level of Care Code 68644 Subseq Hosp Care Lvl 3 Diagnoses Upper GI bleed K92.2 Coronary disease I25.10 End-stage renal disease on hemodialysis N18.6; Z99.2 Chronic cough R05 Atrial flutter with rapid ventricular response I48.92 Confusion and disorientation R41.0 Diabetes E11.9 NSTEMI (non-ST elevated myocardial infarction) I21.4 Atrial fibrillation I48.0 Atrial fibrillation type: paroxysmal Hyperlipidemia E78.5 Hyperlipidemia type: unspecified Carotid artery stenosis, asymptomatic I65.29 (1) Atrial fibrillation Atrial fibrillation type: paroxysmal Qualified Code(s): I48.0 - Paroxysmal atrial fibrillation (2) Hyperlipidemia Hyperlipidemia type: unspecified Qualified Code(s): E78.5 - Hyperlipidemia, unspecified
[2021-07-31 18:26] LABS: Hematocrit (blood only) 33.2 % (37-47); Hemoglobin 10.3 g/dL (12.0-16.0)
--- NOTE | 2021-07-31 19:10 | Emergency Department Note ---
Impression & Plan ABLA (acute blood loss anemia), End-stage renal disease on hemodialysis, Upper GI bleed, NSTEMI (non-ST elevated myocardial infarction), Anticoagulant long- term use ED Provider Note CHIEF COMPLAINT: Altered mental status HISTORY OF PRESENT ILLNESS: This 86-year-old female patient presents to the emergency department with complaints of altered mentation, generalized weakness in the setting of end-stage renal disease on hemodialysis. The patient is chronically anticoagulated secondary to history of atrial fibrillation. She does have a history of diabetes, breast cancer, diastolic heart failure and coronary artery disease. The patient has been at home recently but has been between her son's home and her home because of difficulty caring for herself. Son states it has been increasingly difficult to care for the patient despite multiple assistance. Over the last 24 hours they have seen a significant decline in the patient has now required a two-person assist. They deny any kno wn fevers or falls with head injury. There has been no new medication change except of the patient has been off of her chemotherapy pills while she was in [place] at her son's home. There has been no vomiting, chest pain, shortness of breath. Patient does not make much urine. REVIEW OF SYSTEMS: A review of systems was performed with positives and pertinent negatives listed in the history of present illness. 10 systems were reviewed and are otherwise negative. ALLERGIES: see below MEDICATIONS: see below PMH: see below SOCIAL HISTORY: see below DDx: Infection, dehydration, metabolic abnormality, hypo/hyperglycemia, electrolyte disturbance, anemia, hypoxia, cardiac sources, intracerebral event, toxicologic, neurologic, as well as other pathologies. PHYSICAL EXAM: Vital signs reviewed. General: Chronically ill-appearing 86-year-old female, in no significant distress. HEENT: No scleral icterus, PERRLA, neck supple. Atraumatic. Cardiovascular: Regular rate and rhythm, no extra sounds. Positive systolic ejection murmur. Distant heart tones. Pulmonary: Clear to auscultation bilaterally, normal work of breathing. Abdomen: Soft, nontender, nondistended, positive bowel sounds. Musculoskeletal: Atraumatic, no peripheral edema. Neurologic: Patient awake somnolent, answering questions but quiet, speech is clear but answers in 1-2 word sentences. Rectal: Guaiac positive melanotic stools, no bright red blood. Skin: Warm, dry, no rash. Edematous primarily to the buttocks and proximal lower extremity. Venous stasis changes noted to the distal lower extremities. EMERGENCY DEPARTMENT COURSE/MDM: This patient was evaluated and appeared to be in no significant distress. IV access was obtained and laboratory work was drawn. The patient was placed on the groundwater monitoring technician noted to be in a sinus rhythm. Patient's systolic blood pressure was notably soft at 85. Patient appeared to be weak and lethargic and had a full dialysis treatment the day previous however chest x-ray does reveal some pulmonary edema. A 250 cc bolus of normal saline solution was administered. Patient's anemic on CBC and noted to be anticoagulated with Eliquis due to atrial fibrillation. She is stool guaiac positive melanotic appearing stools. She was typed and crossed for 2 units of blood with a hemoglobin just over 8. Patient was consented for blood transfusion and subsequently her troponin resulted at 587.6. This would represent an end organ ischemia in the setting of hypotension. 1 unit of PRBCs was ordered to be transfused over 4 hours instead of the standard 2 hours. The hospitalist, Dr. Potter was consulted for admission and further management. The patient's son who is a physician is at the bedside and has expressed an understanding of the plan. The patient is also aware. They have expressed that the patient wishes to be a DNR at this time. MONITORING: An order for cardiac monitoring was placed and the patient is noted to be in a NSR at 84 beats per minute. RADIOLOGY: See below EKG: Normal sinus rhythm with a left axis deviation at 85 bpm. Low voltage QRS with a QTC of 399. Nonspecific ST changes in the lateral leads. No significant change from previous dated May 01, 2021. DISPOSITION: Admission I have personally spent 60 minutes of critical care time in the direct management of this patient. This was a life/limb threatening event. This 60 minutes is in excess of all separately billable procedures. Past Med/Surg History Medical History Aspiration, chronic pulmonary Following with ENT and GI, 07/2020 hospitalization for PNA following EGD suspected aspiration Asthma Controlled per pt, rescue inhaler use last several mos ago Atrial fibrillation Dx 2017-on anticoagulation-follow with [facility] Breast cancer 2005- left mastectomy+ chemo and XRT with recurrence of breast CA to RT 4th & 5th ribs (oral/injectable medication) Left upper extremity restriction per pt CAD (coronary artery disease) 2 stents-LAD and D1 HORACE, July 2015. Follows with [facility]. Carotid artery stenosis, asymptomatic 70-79% stenosis of right ICA per 01/2020 carotid doppler Chronic anticoagulation Chronic diastolic (congestive) heart failure Follows with [facility], stable per note and pt-chronically sleeps in recliner Diabetes mellitus IDDM, controlled and stable per pt Dysphagia Occasional dysphagia and coughing with swallowing pills, improved without clear cause per pt. Pt denies re-visiting recommended EGD-following with PCP End stage renal disease End-stage renal disease on hemodialysis Fistula Right arm not using at present and needs further surgery GERD (gastroesophageal reflux disease) Controlled, stable per pt Hemodialysis patient Dialysis M,W,F- [place] Using temporary cath in left shoulder Hyperlipidemia Hypertension Controlled, stable per pt Hypothyroidism Port-A-Cath in place Rt chest Pulmonary hypertension Mild per 05/04/21 ECHO- RVSP 39mmHg; follows with [facility] Rib lesion Bony metastasis per bone scan, pt states is on oral and injectable tx and following with PCP Sleep apnea No current device use Urinary leakage Surgical History History of appendectomy History of breast biopsy History of cardiac cath 2017 -2 stents-follows with [facility] History of carpal tunnel release of both wrists History of colonoscopy History of heart artery stent X 2 (2017) History of left mastectomy pt reports LUE restriction History of tonsillectomy and adenoidectomy History of total abdominal hysterectomy and bilateral salpingo-oophorectomy Family History Father Myocardial infarction Heart disease Mother Hypertension Other No family history of adverse response to anesthesia No family history of bleeding disorder Social History Smoking Status: Never smoker Second Hand Exposure: No; Hx Alcohol Use: No Hx Substance Use: No Preferred Language: Puerto Rican Communication Ability: Effective 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 Required: No Beliefs That Will Affect Care: None marital status: / Current Living Situation: Alone Current Living Situation Comment: FAMILY COMES MULTIPLE TIMES PER DAY current occupational status: retired 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 How many Children do You have: 3 How many Children do You have Comment: 4 sons - one suffered a broken neck during wrestling practice, became quadraplegic and 6 years later Other Information That Helps Us Care for You: No other: One son is MD (family practice in [place]) Feels Safe at Home: Yes Safety Concerns: Feels Safe At This Time Assistive Devices: Cane and CPAP Allergies Allergies Allergy/AdvReac Type Severity Reaction Status Date / Time cat dander Allergy Intermediate itching Verified 07/29/21 19:50 eyes, blisters pseudoephedrine AdvReac Intermediate Hallucinati Verified 07/29/21 19:50 ons hydroxyzine AdvReac Mild hallucinati Verified 07/29/21 19:50 ons Home Meds Home Medications Medication Instructions Recorded Confirmed clopidogrel 75 mg tablet (Plavix) 75 mg PO QAM #90 tab 12/11/18 07/29/21 fluticasone 232 mcg-salmeterol 14 1 puffs INHALATION QPM #1 ea 12/11/18 07/29/21 mcg/actuation breath activated powdr (AirDuo RespiClick) albuterol sulfate 90 mcg/actuation 2 puffs INHALATION Q4H PRN #1 gm 02/18/19 07/29/21 aerosol inhaler coenzyme Q10 100 mg capsule 100 mg PO QAM cap 02/18/19 07/29/21 denosumab 120 mg/1.7 mL (70 mg/mL) 120 mg SUBCUT MONTHLY ml 02/18/19 07/29/21 subcutaneous solution (Xgeva) docusate sodium 100 mg capsule 100 mg PO HS cap 02/18/19 07/29/21 exemestane 25 mg tablet (Aromasin) 25 mg PO QAM tab 02/18/19 07/29/21 isosorbide mononitrate 120 mg 120 mg PO QAM #90 tab 02/18/19 07/29/21 tablet,extended release 24 hr nitroglycerin 0.4 mg sublingual 0.4 mg SL Q5M PRN #25 tab 02/18/19 07/29/21 tablet pantoprazole 40 mg tablet,delayed 40 mg PO QAM 02/10/20 07/29/21 release levothyroxine 150 mcg tablet 150 mcg PO QAM 08/23/20 07/29/21 pramipexole 0.25 mg tablet 0.25 mg PO HS 08/23/20 07/29/21 (Mirapex) febuxostat 40 mg tablet 40 mg PO QAM 10/05/20 07/29/21 famotidine 20 mg tablet (Acid 2 mg PO QPM tab 07/06/21 07/29/21 Diversional Therapist'S Assistant (famotidine)) apixaban 2.5 mg tablet (Eliquis) 2.5 mg PO BID 07/29/21 07/29/21 atorvastatin 10 mg tablet 10 mg PO HS 07/29/21 07/29/21 benzonatate 100 mg capsule 100 mg PO TID PRN 07/29/21 07/29/21 bumetanide 2 mg tablet 2 mg PO QAM 07/29/21 07/29/21 colchicine 0.6 mg tablet 0.6 mg PO BID PRN 07/29/21 07/29/21 insulin glargine 100 unit/mL (3 25 unit SUBCUT DAILY 07/29/21 07/29/21 mL) subcutaneous pen (Lantus Solostar U-100 Insulin) melatonin 10 mg capsule 10 mg PO HS PRN 07/29/21 07/29/21 Previous Rx's Medication Instructions Recorded albuterol sulfate 1.25 mg/3 mL 1.25 mg INH Q6H PRN #90 ml 12/02/17 solution for nebulization Results & Data (ED) Home Medications Current Medication List: was personally reviewed by me Laboratory Data Attestation: I reviewed the patient's lab results. Result diagrams: 07/31/21 17:49 07/31/21 05:20 Lab Results 07/29/21 07/29/21 07/29/21 Range/Units 18:30 18:30 18:30 WBC 10.05 (4.8-10.8) K/uL RBC 2.68 L (4.2-5.4) M/uL Hgb 8.4 L (12.0-16.0) g/dL Hct 27.4 L (37-47) % MCV 102.2 H (80-100) fL MCH 31.3 (25-34) pg MCHC 30.7 L (32-36) g/dL RDW Std Deviation 73.5 H (36.4-46.3) fL RDW Coeff of Oj 20.1 H (11.5-14.5) % Plt Count 141 (130-400) K/uL MPV 10.5 H (7.4-10.4) fL Immature Gran % (Auto) 0.6 % Neut % (Auto) 61.3 % Lymph % (Auto) 26.4 % Freeborn % (Auto) 10.0 % Eos % (Auto) 1.1 % Baso % (Auto) 0.6 % Neut # (Auto) 6.17 (1.4-6.5) K/uL Lymph # (Auto) 2.65 (1.2-3.4) K/uL Free[place] # (Auto) 1.00 H (0.11-0.59) K/uL Eos # (Auto) 0.11 (0-0.5) K/uL Baso # (Auto) 0.06 (0-0.2) K/uL Immature Gran # (Auto) 0.06 H (0.00-0.02) K/uL Absolute Nucleated RBC 0.06 H (0-0) K/uL Nucleated RBC % (auto) 0.6 % Hypochromasia Present Poikilocytosis Present Anisocytosis Present PT (9.0-12.0) Seconds INR (0.9-1.1) APTT (21.0-31.0) Seconds PTT Ratio Sodium 133 L (136-145) mmol/L Potassium 4.7 (3.5-5.1) mmol/L Chloride 97 L (98-107) mmol/L Carbon Dioxide 29 (21-32) mmol/L Anion Gap 7 (3-11) BUN 41 H (6-23) mg/dl Creatinine 3.29 H (0.6-1.2) mg/dl Est Cr Clr Drug Dosing Not Reportable Est GFR ( Amer) 14.1 ml/min Est GFR (Non-Af Amer) 12.2 ml/min BUN/Creatinine Ratio 12.5 (10-20) Glucose 206 H (70-99(Fasting)) mg/dl Lactate (0.4-2.0) mmol/L Calcium 9.5 (8.5-10.1) mg/dl Magnesium 1.9 (1.7-2.4) mg/dl Total Bilirubin 1.4 H (0.2-1.0) mg/dl AST 18 (13-39) U/L ALT 7 (7-52) U/L Alkaline Phosphatase 153 H (34-104) U/L Ammonia (18-72) umol/L Troponin I High Sens 587.6 H* (0-14) pg/ml Total Protein 5.5 L (6.0-8.3) gm/dl Albumin 3.0 L (3.4-5.0) gm/dl Globulin 2.5 (2.5-4.0) gm/dl Albumin/Globulin Ratio 1.2 (0.9-2) TSH (0.300-4.500) uIu/ml Free T4 (0.61-1.60) ng/dl SARS-CoV-2, RNA, NAAT (NEGATIVE) Blood Type Blood Type Recheck Antibody Screen Crossmatch 07/29/21 07/29/21 07/29/21 Range/Units 18:30 18:30 18:30 WBC (4.8-10.8) K/uL RBC (4.2-5.4) M/uL Hgb (12.0-16.0) g/dL Hct (37-47) % MCV (80-100) fL MCH (25-34) pg MCHC (32-36) g/dL RDW Std Deviation (36.4-46.3) fL RDW Coeff of Oj (11.5-14.5) % Plt Count (130-400) K/uL MPV (7.4-10.4) fL Immature Gran % (Auto) % Neut % (Auto) % Lymph % (Auto) % Free[place] % (Auto) % Eos % (Auto) % Baso % (Auto) % Neut # (Auto) (1.4-6.5) K/uL Lymph # (Auto) (1.2-3.4) K/uL [place] # (Auto) (0.11-0.59) K/uL Eos # (Auto) (0-0.5) K/uL Baso # (Auto) (0-0.2) K/uL Immature Gran # (Auto) (0.00-0.02) K/uL Absolute Nucleated RBC (0-0) K/uL Nucleated RBC % (auto) % Hypochromasia Poikilocytosis Anisocytosis PT 13.9 H (9.0-12.0) Seconds INR 1.3 H (0.9-1.1) APTT 35.0 H (21.0-31.0) Seconds PTT Ratio 1.3 Sodium (136-145) mmol/L Potassium (3.5-5.1) mmol/L Chloride (98-107) mmol/L Carbon Dioxide (21-32) mmol/L Anion Gap (3-11) BUN (6-23) mg/dl Creatinine (0.6-1.2) mg/dl Est Cr Clr Drug Dosing Est GFR ( Amer) ml/min Est GFR (Non-Af Amer) ml/min BUN/Creatinine Ratio (10-20) Glucose (70-99(Fasting)) mg/dl Lactate 1.9 (0.4-2.0) mmol/L Calcium (8.5-10.1) mg/dl Magnesium (1.7-2.4) mg/dl Total Bilirubin (0.2-1.0) mg/dl AST (13-39) U/L ALT (7-52) U/L Alkaline Phosphatase (34-104) U/L Ammonia (18-72) umol/L Troponin I High Sens (0-14) pg/ml Total Protein (6.0-8.3) gm/dl Albumin (3.4-5.0) gm/dl Globulin (2.5-4.0) gm/dl Albumin/Globulin Ratio (0.9-2) TSH 20.431 H (0.300-4.500) uIu/ml Free T4 0.95 (0.61-1.60) ng/dl SARS-CoV-2, RNA, NAAT (NEGATIVE) Blood Type Blood Type Recheck Antibody Screen Crossmatch 07/29/21 07/29/21 07/29/21 Range/Units 19:13 19:54 20:40 WBC (4.8-10.8) K/uL RBC (4.2-5.4) M/uL Hgb (12.0-16.0) g/dL Hct (37-47) % MCV (80-100) fL MCH (25-34) pg MCHC (32-36) g/dL RDW Std Deviation (36.4-46.3) fL RDW Coeff of Oj (11.5-14.5) % Plt Count (130-400) K/uL MPV (7.4-10.4) fL Immature Gran % (Auto) % Neut % (Auto) % Lymph % (Auto) % Free[place] % (Auto) % Eos % (Auto) % Baso % (Auto) % Neut # (Auto) (1.4-6.5) K/uL Lymph # (Auto) (1.2-3.4) K/uL [place] # (Auto) (0.11-0.59) K/uL Eos # (Auto) (0-0.5) K/uL Baso # (Auto) (0-0.2) K/uL Immature Gran # (Auto) (0.00-0.02) K/uL Absolute Nucleated RBC (0-0) K/uL Nucleated RBC % (auto) % Hypochromasia Poikilocytosis Anisocytosis PT (9.0-12.0) Seconds INR (0.9-1.1) APTT (21.0-31.0) Seconds PTT Ratio Sodium (136-145) mmol/L Potassium (3.5-5.1) mmol/L Chloride (98-107) mmol/L Carbon Dioxide (21-32) mmol/L Anion Gap (3-11) BUN (6-23) mg/dl Creatinine (0.6-1.2) mg/dl Est Cr Clr Drug Dosing Est GFR ( Amer) ml/min Est GFR (Non-Af Amer) ml/min BUN/Creatinine Ratio (10-20) Glucose (70-99(Fasting)) mg/dl Lactate (0.4-2.0) mmol/L Calcium (8.5-10.1) mg/dl Magnesium (1.7-2.4) mg/dl Total Bilirubin (0.2-1.0) mg/dl AST (13-39) U/L ALT (7-52) U/L Alkaline Phosphatase (34-104) U/L Ammonia 19.0 (18-72) umol/L Troponin I High Sens (0-14) pg/ml Total Protein (6.0-8.3) gm/dl Albumin (3.4-5.0) gm/dl Globulin (2.5-4.0) gm/dl Albumin/Globulin Ratio (0.9-2) TSH (0.300-4.500) uIu/ml Free T4 (0.61-1.60) ng/dl SARS-CoV-2, RNA, NAAT NEGATIVE (NEGATIVE) Blood Type B Positive Blood Type Recheck Antibody Screen NEGATIVE Crossmatch See Detail 07/29/21 Range/Units 21:12 WBC (4.8-10.8) K/uL RBC (4.2-5.4) M/uL Hgb (12.0-16.0) g/dL Hct (37-47) % MCV (80-100) fL MCH (25-34) pg MCHC (32-36) g/dL RDW Std Deviation (36.4-46.3) fL RDW Coeff of Oj (11.5-14.5) % Plt Count (130-400) K/uL MPV (7.4-10.4) fL Immature Gran % (Auto) % Neut % (Auto) % Lymph % (Auto) % Free[place] % (Auto) % Eos % (Auto) % Baso % (Auto) % Neut # (Auto) (1.4-6.5) K/uL Lymph # (Auto) (1.2-3.4) K/uL Free[place] # (Auto) (0.11-0.59) K/uL Eos # (Auto) (0-0.5) K/uL Baso # (Auto) (0-0.2) K/uL Immature Gran # (Auto) (0.00-0.02) K/uL Absolute Nucleated RBC (0-0) K/uL Nucleated RBC % (auto) % Hypochromasia Poikilocytosis Anisocytosis PT (9.0-12.0) Seconds INR (0.9-1.1) APTT (21.0-31.0) Seconds PTT Ratio Sodium (136-145) mmol/L Potassium (3.5-5.1) mmol/L Chloride (98-107) mmol/L Carbon Dioxide (21-32) mmol/L Anion Gap (3-11) BUN (6-23) mg/dl Creatinine (0.6-1.2) mg/dl Est Cr Clr Drug Dosing Est GFR ( Amer) ml/min Est GFR (Non-Af Amer) ml/min BUN/Creatinine Ratio (10-20) Glucose (70-99(Fasting)) mg/dl Lactate (0.4-2.0) mmol/L Calcium (8.5-10.1) mg/dl Magnesium (1.7-2.4) mg/dl Total Bilirubin (0.2-1.0) mg/dl AST (13-39) U/L ALT (7-52) U/L Alkaline Phosphatase (34-104) U/L Ammonia (18-72) umol/L Troponin I High Sens (0-14) pg/ml Total Protein (6.0-8.3) gm/dl Albumin (3.4-5.0) gm/dl Globulin (2.5-4.0) gm/dl Albumin/Globulin Ratio (0.9-2) TSH (0.300-4.500) uIu/ml Free T4 (0.61-1.60) ng/dl SARS-CoV-2, RNA, NAAT (NEGATIVE) Blood Type Blood Type Recheck B Positive Antibody Screen Crossmatch Administered Medications Atorvastatin Calcium (Atorvastatin 10 Mg Tab) 10 mg PO HS MITA Stop: 08/29/21 20:59 Last Admin: 07/30/21 21:14 Dose: 10 mg Documented by: [id number] Benzonatate (Benzonatate 100 Mg Capsule) 100 mg PO TID PRN PRN Reason: Cough Stop: 08/28/21 23:36 Last Admin: 07/30/21 06:09 Dose: 100 mg Documented by: [id number] Docusate Sodium (Docusate Sodium 100 Mg Cap) 100 mg PO HS MITA Stop: 08/29/21 20:59 Last Admin: 07/30/21 21:14 Dose: 100 mg Documented by: [id number] Famotidine (Famotidine 20 Mg Tab) 20 mg PO QPM [facility] Stop: 08/29/21 20:59 Last Admin: 07/30/21 21:15 Dose: 20 mg Documented by: [id number] Fluticasone/Vilanterol (Fluticasone/Vilanterol 200/25mcg 14 Puffs/Inhaler) 1 puffs INH QPM [facility] Stop: 08/29/21 20:59 Last Admin: 07/30/21 21:15 Dose: 1 puffs Documented by: [id number] Pantoprazole Sodium 40 mg/ (Dextrose) 100 mls @ 20 mls/hr IV Q5H [facility] Stop: 08/28/21 20:14 Last Admin: 07/31/21 18:03 Dose: 8 mg/hr, 20 mls/hr Documented by: [id number] Infusion: 07/31/21 16:52 Dose: 8 mg/hr, 20 mls/hr Documented by: [id number] Admin: 07/31/21 11:52 Dose: 8 mg/hr, 20 mls/hr Documented by: [id number] Infusion: 07/31/21 10:33 Dose: 8 mg/hr, 20 mls/hr Documented by: [id number] Admin: 07/31/21 05:33 Dose: 8 mg/hr, 20 mls/hr Documented by: [id number] Infusion: 07/31/21 05:33 Dose: 8 mg/hr, 20 mls/hr Documented by: [id number] Admin: 07/31/21 01:20 Dose: 8 mg/hr, 20 mls/hr Documented by: [id number] Infusion: 07/31/21 01:20 Dose: 8 mg/hr, 20 mls/hr Documented by: [id number] Admin: 07/30/21 21:16 Dose: 8 mg/hr, 20 mls/hr Documented by: [id number] Infusion: 07/30/21 21:16 Dose: 8 mg/hr, 20 mls/hr Documented by: [id number] Admin: 07/30/21 16:22 Dose: 8 mg/hr, 20 mls/hr Documented by: [id number] Infusion: 07/30/21 16:13 Dose: 8 mg/hr, 20 mls/hr Documented by: [id number] Admin: 07/30/21 11:13 Dose: 8 mg/hr, 20 mls/hr Documented by: [id number] Infusion: 07/30/21 11:07 Dose: 8 mg/hr, 20 mls/hr Documented by: [id number] Admin: 07/30/21 06:07 Dose: 8 mg/hr, 20 mls/hr Documented by: [id number] Infusion: 07/30/21 06:07 Dose: 8 mg/hr, 20 mls/hr Documented by: [id number] Admin: 07/30/21 02:23 Dose: 8 mg/hr, 20 mls/hr Documented by: [id number] Infusion: 07/30/21 02:23 Dose: 8 mg/hr, 20 mls/hr Documented by: [id number] Admin: 07/30/21 00:17 Dose: 8 mg/hr, 20 mls/hr Documented by: [id number] Insulin Aspart (Insulin Aspart Per Unit) 0 units SC ACHS [facility] Stop: 08/29/21 00:29 Last Admin: 07/31/21 17:36 Dose: Not Given Documented by: [id number] Admin: 07/31/21 12:07 Dose: Not Given Documented by: [id number] Insulin Glargine (Insulin Glargine Solostar 100 Units/Ml 3 Ml Pen) 5 units SC QAM [facility] Stop: 08/30/21 08:59 Last Admin: 07/31/21 09:03 Dose: 5 units Documented by: [id number] Cosigned by: [id number] Levothyroxine Sodium (Levothyroxine Sodium 150 Mcg Tablet) 150 mcg PO DAILYBB [facility] Stop: 08/29/21 06:29 Last Admin: 07/31/21 05:28 Dose: 150 mcg Documented by: [id number] Admin: 07/30/21 06:08 Dose: 150 mcg Documented by: [id number] Midodrine (Midodrine Hcl 2.5 Mg Tab) 2.5 mg PO TID@0800,1200,1700 [facility] Stop: 08/29/21 11:59 Last Admin: 07/31/21 17:36 Dose: 2.5 mg Documented by: [id number] Admin: 07/31/21 11:51 Dose: 2.5 mg Documented by: [id number] Admin: 07/31/21 09:02 Dose: Not Given Documented by: [id number] Admin: 07/30/21 16:22 Dose: 2.5 mg Documented by: [id number] Admin: 07/30/21 11:46 Dose: Not Given Documented by: [id number] Miscellaneous (Exemestane: Order Awaiting Action) 1 ea N/A QS [facility] Stop: 08/29/21 00:00 Last Admin: 07/31/21 15:34 Dose: Not Given Documented by: [id number] Admin: 07/31/21 09:01 Dose: Not Given Documented by: [id number] Admin: 07/30/21 23:57 Dose: Not Given Documented by: [id number] Admin: 07/30/21 15:43 Dose: Not Given Documented by: [id number] Admin: 07/30/21 07:56 Dose: Not Given Documented by: [id number] Admin: 07/30/21 00:19 Dose: Not Given Documented by: [id number] Pramipexole Dihydrochloride (Pramipexole Dihydrochlo 0.25 Mg Tab) 0.25 mg PO HS [facility] Stop: 08/29/21 20:59 Last Admin: 07/30/21 21:16 Dose: 0.25 mg Documented by: [id number] Discontinued Medications Sodium Chloride (Nss) 500 mls @ 999 mls/hr IV .Q31M [facility] Stop: 07/29/21 18:15 Last Admin: 07/29/21 20:35 Dose: Not Given Documented by: [id number] Sodium Chloride (Nss 1000ml) 1,000 mls @ 125 mls/hr IV .Q8H [facility] Stop: 07/30/21 01:44 Last Infusion: 07/30/21 01:06 Dose: 0 mls/hr Documented by: [id number] Infusion: 07/29/21 20:51 Dose: 0 mls/hr Documented by: [id number] Admin: 07/29/21 20:35 Dose: 125 mls/hr Documented by: [id number] Sodium Chloride (Nss 1000ml) 250 mls @ 999 mls/hr IV .Q16M ONE Stop: 07/29/21 19:48 Last Admin: 07/29/21 20:35 Dose: Not Given Documented by: [id number] Pantoprazole Sodium (Protonix Bolus/Drip) 0 mls @ 1 mls/hr IV ONE STA Stop: 07/29/21 19:57 Last Admin: 07/30/21 00:17 Dose: 1 mls/hr Documented by: [id number] Pantoprazole Sodium 80 mg/ (Dextrose) 120 mls @ 400 mls/hr IV NOW ONE Stop: 07/29/21 20:13 Last Infusion: 07/29/21 21:20 Dose: 0 mls/hr Documented by: [id number] Admin: 07/29/21 20:51 Dose: 400 mls/hr Documented by: [id number] Insulin Aspart (Insulin Aspart Per Unit) 0 units SC Q6 [facility] Stop: 08/29/21 00:29 Last Admin: 07/31/21 05:33 Dose: 1 units Documented by: [id number] Cosigned by: [id number] Admin: 07/30/21 23:56 Dose: Not Given Documented by: [id number] Cosigned by: [id number] Admin: 07/30/21 18:55 Dose: Not Given Documented by: [id number] Admin: 07/30/21 13:06 Dose: Not Given Documented by: [id number] Admin: 07/30/21 06:07 Dose: 2 units Documented by: [id number] Cosigned by: [id number] Admin: 07/30/21 02:24 Dose: 3 units Documented by: [id number] Cosigned by: [id number] Insulin Glargine (Insulin Glargine Solostar 100 Units/Ml 3 Ml Pen) 10 units SC BID [facility] Stop: 08/29/21 08:59 Last Admin: 07/30/21 09:58 Dose: 10 units Documented by: [id number] Cosigned by: [id number] Midodrine (Midodrine Hcl 10 Mg Tab) 10 mg PO 1000 [facility] Stop: 07/30/21 16:00 Last Admin: 07/30/21 10:55 Dose: 10 mg Documented by: [id number] Midodrine (Midodrine Hcl 10 Mg Tab) 10 mg PO NOW STA Stop: 07/31/21 08:55 Last Admin: 07/31/21 09:16 Dose: 10 mg Documented by: [id number] Imaging Data Radiologist's Impression: Chest X-Ray 07/29/21 17:33 XR chest 1V portable HISTORY: 86 years-old Female weakness acute weakness COMPARISON: Chest radiograph 05/01/2021 TECHNIQUE: Portable AP view of the chest FINDINGS: The cardiac silhouette is enlarged. Left subclavian dual-lumen hemodialysis catheter and right subclavian Djxxeb-b-Xldw catheter is noted with distal tips in the expected location of the mid SVC. No pneumothorax, or large pleural effusion. Pulmonary vascular congestion with interstitial coarsening. Probable trace pleural effusions. Degenerative changes of the shoulders and spine. IMPRESSION: 1. Cardiomegaly with pulmonary edema. 2. Left subclavian hemodialysis and right-sided [id number]-[id number] catheters as above. ACT 112: Negative or not required by law. The above report was generated using voice recognition software. It may contain grammatical, syntax or spelling errors. Electronically signed by: Quintin Burnette M.D. 07/29/2021 5:[address] 07/29/21 17:33 CT head/brain wo con CLINICAL HISTORY: 86 years-old Female with AMS. Acutely altered mental status TECHNIQUE: Multiple axial CT images of the head were obtained without contrast. A dose lowering technique was utilized adhering to the principles of ALARA. CT DOSE: 614.27 mGy.cm COMPARISON: CT maxillofacial 11/26/2017 FINDINGS: No acute intracranial hemorrhage, midline shift, intracranial mass, hydrocephalus, territorial ischemia or abnormal extra-axial collection. Mild involutional changes. White matter hypodensities suggest chronic microvascular ischemic disease. The calvarium is intact. Prior bilateral lens repair. The paranasal sinuses, mastoid air cells, and middle ear cavities are clear. IMPRESSION: No acute intracranial abnormality. ACT 112: Negative or not required by law. The above report was generated using voice recognition software. It may contain grammatical, syntax or spelling errors. Electronically signed by: Quintin Burnette M.D. 07/29/2021 7:08 PM Blood Pressure Blood Pressure Findings: Low blood pressure Blood Pressure Disposition: further management by hospitalist Discharge Plan Visit Data Chief Complaint: Confusion Stated Complaint: CONFUSION, WEAKNESS, ED Provider: Franchesca Clifton Discharge Problem: ABLA (acute blood loss anemia), End-stage renal disease on hemodialysis, Upper GI bleed, NSTEMI (non-ST elevated myocardial infarction), Anticoagulant long- term use Patient Disposition: Admitted As Inpatient Discharge Instructions Interventions: ED Discharge Assessment Last Done: 07/29/21 23:03
[2021-07-31] MEDS: ATORVASTATIN 10 MG TAB PO SCH (21:37)
[2021-07-31] MEDS: FLUTICASONE/VILANTEROL 200/25MCG 14 PUFFS/INHALER INH SCH (21:37)
[2021-07-31] MEDS: DOCUSATE SODIUM 100 MG CAP PO SCH (21:37)
[2021-07-31] MEDS: FAMOTIDINE 20 MG TAB PO SCH (21:37)
[2021-07-31] MEDS: PRAMIPEXOLE DIHYDROCHLO 0.25 MG TAB PO SCH (21:37)
[2021-08-01] MEDS: [UNRECOGNIZED DRUG - OTHER] SCH ×3 (04:45→15:20)
[2021-08-01] MEDS: PANTOprazole 40 MG in DEXTROSE 5% 100 ML IV SCH ×3 (04:46→15:19)
[2021-08-01] MEDS: LEVOTHYROXINE SODIUM 150 MCG TABLET PO SCH (05:54)
[2021-08-01 06:55] LABS: Basophils # (auto) 0.05 K/uL (0-0.2); Basophils % (auto) 0.4 %; Eosinophils # (auto) 0.22 K/uL (0-0.5); Eosinophils % (auto) 1.7 %; Hematocrit (blood only) 30.8 % (37-47); Hemoglobin 9.6 g/dL (12.0-16.0); Immature Granulocytes # (auto) 0.05 K/uL (0.00-0.02); Immature Granulocytes % (auto) 0.4 %; Lymphocytes # (auto) 2.49 K/uL (1.2-3.4); Lymphocytes % (auto) 18.7 %; Mean Corpuscular Hemoglobin 30.5 pg (25-34); Mean Corpuscular Hgb Conc 31.2 g/dL (32-36); Mean Corpuscular Volume 97.8 fL (80-100); Mean Platelet Volume 10.4 fL (7.4-10.4); Monocytes # (auto) 1.07 K/uL (0.11-0.59); Neutrophils # (auto) 9.45 K/uL (1.4-6.5); Neutrophils % (auto) 70.8 %; Nucleated RBC # (auto) 0.09 K/uL (0-0); Nucleated RBC % (auto) 0.7 %; Platelet Count 143 K/uL (130-400); RDW Coefficient of Variation 21.5 % (11.5-14.5); RDW Standard Deviation 73.3 fL (36.4-46.3); Red Blood Count 3.15 M/uL (4.2-5.4); White Blood Count 13.33 K/uL (4.8-10.8)
[2021-08-01 07:11] LABS: Albumin Globulin Ratio 1.2 (0.9-2); Albumin Level 2.9 gm/dl (3.4-5.0); BUN Creatinine Ratio 7.2 (10-20); Bilirubin,Total 1.9 mg/dl (0.2-1.0); Calcium 8.1 mg/dl (8.5-10.1); Creatinine Clr Calc Pharmacy 14.4 ml/min; Est GFR (African American) 16.4 ml/min; Est GFR (Non-African American) 14.1 ml/min; Globulin 2.5 gm/dl (2.5-4.0); Magnesium 1.7 mg/dl (1.7-2.4); Potassium 3.9 mmol/L (3.5-5.1); Total Protein 5.4 gm/dl (6.0-8.3)
--- NOTE | 2021-08-01 07:18 | Hospitalist Progress Note ---
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 2 units transfused with repeat H&H appropriate rise. Slight downtrend today. Plaavix delayed to resume until tomorrow with repeat H&H pended GI consulted. Following for clinical stability, no plans for endoscopy at this time. Patient is high risk for intervention. Eliquis, Plavix held for bleeding. Plavix delayed due to H&H, rescheduled for tomorrow AM, follow blood counts. (2) Coronary disease: Plan: History of CAD/NSTEMI History of HORACE to LAD and D1 07/2015 History of 70-79% stenosis of right ICA TTE 05/04/2021: LV EF 55-60%. No regional wall motion abnormalities. Septal flattening during diastole. Moderate concentric LVH. Moderately dilated right ventricle with moderately reduced right ventricular systolic function. Mild mitral regurg, moderate tricuspid regurg, mild pulmonary hypertension RVSP 39 mmHg, small pericardial effusion without evidence of tamponade.? Cor pulmonale 07/30/2021 TTE: Normal LV SF, EF 55-60%, no wall motion abnormalities. Moderate right ventricular dilation with moderately reduced systolic function. Moderate biatrial dilation. Mild mitral regurg. Severe tricuspid regurg. RVSP 54 mmHg. Small pericardial effusion without evidence of tamponade. Compared to prior tricuspid regurg no severe, pulmonary hypertension is now moderate, pericardial effusion mildly increased On bumetanide 2 mg every morning, Plavix 75 mg every morning, atorvastatin 10 mg p.o. 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 Known coronary disease, hold Plavix in the setting of acute bleeding. Elevated troponin and absence of EKG findings and chest pain and suspect demand ischemia. Trend levels, no acute intervention at this time and intervention would require anticoagulation/platelet inhibitors which are contraindicated in the setting of her acute bleed. Plaavix above, follow H&H. History of CHF with diastolic failure. Also dialysis dependent, anuric. Cautious fluid support. Dialysis as noted (3) End-stage renal disease on hemodialysis: Plan: Patient with Saturday dialysis, last dialysis 1 day prior to admission - 06/29/21 R arm basilic vein transposition, dialysis via permacath Volume overloaded on admitting exam with normal oxygen saturations on 2 L Nephrology consulted, dialysis on admission 07/30 and scheduled M/W/F Potassium remains within normal limits (4) Chronic cough: Plan: Chronic cough nonproductive with dyspnea on exertion, and history of dysphagia Has followed with pulmonology in the past last visit 07/18/2021. Suspected multifactorial but has failed all interventions. Neurontin increased was deferred in the setting of end-stage renal disease on dialysis. Did recommend referral to tertiary care center for evaluation and additional management. Patient's cough does resolve at night, was suspicious for neurogenic/habitualtic cough/psychogenic. No cough was observed overnight by ICU provider, although cough has returned daytime at bedside. No acute intervention for this at this time (5) Ulcer of left heel: Plan: Discussed with wound care. Surgery consulted to evaluate for potential debridement, discussed with PA and recommended that be seen by orthopedics rather than general surgery - Suspected history of vascular insufficiency with poor healing No overt infection, surface culture ordered, no spreading erythema, no history of MRSA 48hr empiric Keflex started. Dialysis dosing adjusted to 500mg Q24 Consult placed to evaluate for need for debridement/graft (6) Atrial flutter with rapid ventricular response: Plan: History of p atrial flutter with RVR, on DOAC anticoagulation Eliquis 2.5 mg p.o. twice daily held on admission for acute bleeding Adequate rate control, sinus on admit - ?outpt holter to quantify afib burden to help inform risks/benefits of ongoing anticoagulation in the setting of recurrent bleeding (7) Confusion and disorientation: Plan: Suspected due to acute hypotension with GI bleed on admission Clinically improving (8) Diabetes: Plan: On home insulin glargine 25 units daily Glucose checks AC/at bedtime Goal BSG 1001 40 Basal/bolus SSI and adequate glycemic control today. - A1C 5.5 (9) NSTEMI (non-ST elevated myocardial infarction): Plan: See above (10) Atrial fibrillation: Plan: See above (11) Hyperlipidemia: Plan: Continue atorvastatin (12) Carotid artery stenosis, asymptomatic: Plan: As previously noted Plan: PT/OT pending Admission and Anticipated Discharge Date Admission Date: July 29, 2021 Subjective Seen at bedside this morning. Continues to have intermittent cough this morning. No bleeding overnight, no blood in sputum production. Feels okay after dialysis yesterday, no lightheadedness/dizziness/syncope/presyncope. No chest pain today. Patient denies pain in her left heel, although mildly tender with dressing removal. Denies fever/chills/sweats overnight. Reviewed plan of care, patient aware to restart Plavix in the morning and getting opinion left heel wound. PT/OT are pending. Review of Systems Review of Systems: All systems reviewed & are unremarkable except as noted in Subjective Physical Exam Physical Exam: General: Oriented to name, year, and place. No acute distress. Laying in bed comfortably at time of visit. HEENT: Atraumatic, normocephalic. Vision and hearing grossly intact. Pupils equal and reactive to light. Thorax: Right port present, left subclavian dialysis catheter present. Pulm: Diminished, without wheezes/rales symmetrical chest rise. Trace basilar crackles today. No increase in work of breathing. No respiratory distress. On nasal cannula. Cardiac: Regular rate and rhythm,systolic murmur is present Radial pulses intact and symmetrical. Abdominal: Nontender, nondistended, soft. BS present. Extremities: Pitting edema is present in the upper and lower extremities bilaterally without asymmetry. R UE fistula in place with palpable thrill, overlying edema. Left heel with wound dressing in place, underneath yellow-brown and edematous erosion without surrounding erythema present at left Achilles. Results & Data Results & Data ([facility]) Vital Signs (Past 12 Hours) Vital Signs Temp Pulse Resp BP Pulse Ox 08/01/21 04:00 36.8 C 85 18 136/61 98 07/31/21 23:52 36.8 C 85 18 99/42 L 95 07/31/21 19:22 126/48 L PG Care Time/CCT Total # of Minutes Spent Total Time Spent with Patient: Total time spent is greater than 50% in coordination of care (as documented) at patient's floor/unit and/or counseling patient: Coding Level of Care Code 28499 Subseq Hosp Care Lvl 2 Diagnoses Upper GI bleed K92.2 Coronary disease I25.10 End-stage renal disease on hemodialysis N18.6; Z99.2 Chronic cough R05 Atrial flutter with rapid ventricular response I48.92 Confusion and disorientation R41.0 Diabetes E11.9 NSTEMI (non-ST elevated myocardial infarction) I21.4 Atrial fibrillation I48.0 Atrial fibrillation type: paroxysmal Hyperlipidemia E78.5 Hyperlipidemia type: unspecified Carotid artery stenosis, asymptomatic I65.29 Ulcer of left heel L97.429 (1) Atrial fibrillation Atrial fibrillation type: paroxysmal Qualified Code(s): I48.0 - Paroxysmal at rial fibrillation (2) Hyperlipidemia Hyperlipidemia type: unspecified Qualified Code(s): E78.5 - Hyperlipidemia, unspecified
[2021-08-01 07:20] LABS: INR 1.2 (0.9-1.1); Partial Thromboplastin Ratio 1.2; Partial Thromboplastin Time 34.1 Seconds (21.0-31.0); Prothrombin Time 13.1 Seconds (9.0-12.0)
[2021-08-01 08:10] LABS: Anisocytosis Present; Polychromasia 1+
[2021-08-01] MEDS: INSULIN ASPART PER UNIT SC SCH ×4 (08:58→21:45)
[2021-08-01] MEDS: MIDODRINE HCL 2.5 MG TAB PO SCH (08:58)
--- NOTE | 2021-08-01 09:14 | Nephrology Progress Note ---
Date of Service August 01, 2021 Assessment & Plan (1) End-stage renal disease on hemodialysis: Plan: Completed HD yesterday for additional UF. Tolerated treatment well; BP low but acceptable. Midodrine 10 mg provided pretreatment. UF 2.3 L achieved. Weight down to 75.8 kg. Outpatient EDW 82.5 kg. Electrolytes controlled. Clearance has been acceptable. Next HD planned for tomorrow. Renal diet with 1 L daily fluid restriction. Medications appropriately dosed for kidney dysfunction. (2) Hypotension: Plan: Will hold standing TID midodrine order and monitor. Midodrine 10 mg will be provided prior to each dialysis. (3) Upper GI bleed: Plan: Eliquis and Plavix held. No signs of GI blood loss in past 24 hours. Remains on heparin gtt. (4) Anemia: Plan: 2 units PRBC support provided 07/30. Maintained on Micera as outpatient. Admission and Anticipated Discharge Date Admission Date: July 29, 2021 Subjective No acute events overnight. No melena or hematochezia reported. Breathing comfortably. Cough persists. Tolerated HD well yesterday, net UF 2.3 L. Review of Systems Review of Systems: All systems reviewed & are unremarkable except as noted in HPI & below Respiratory: + cough Physical Exam Constitutional: well developed and + frail appearing; no acute distress Eyes: + anicteric sclerae; no corneal abnormality ENMT: Mouth: no oral mucosal abnormality and oral mucous membranes not dry Neck: normal visual inspection and trachea midline Respiratory: normal respiratory effort and + cough Auscultation: lungs clear to auscultation bilaterally Cardiovascular: Rate/Rhythm: regular rate Heart Sounds: normal S1 and normal S2 Extremities: + edema and + AV fistula Musculoskeletal: Extremities: no cyanosis and no clubbing Skin: + turgor decreased; no jaundice Neurologic: Motor/Sensory: no tremor and no asterixis Psychiatric: Orientation: alert and cooperative Results & Data ([facility]) Vital Signs (Past 12 Hours) Vital Signs Temp Pulse Pulse Resp BP Pulse Ox 08/01/21 07:51 74 08/01/21 07:15 36.8 C 79 26 H 118/49 L 96 08/01/21 04:00 36.8 C 85 18 136/61 98 07/31/21 23:52 36.8 C 85 18 99/42 L 95 Laboratory Results Laboratory Results - last 24 hr 07/29/21 07/31/21 07/31/21 19:54 11:56 17:49 WBC RBC Hgb 10.3 L Hct 33.2 L MCV MCH MCHC RDW Std Deviation RDW Coeff of Oj Plt Count MPV Immature Gran % (Auto) Neut % (Auto) Lymph % (Auto) Perkins % (Auto) Eos % (Auto) Baso % (Auto) Neut # (Auto) Lymph # (Auto) Perkins # (Auto) Eos # (Auto) Baso # (Auto) Immature Gran # (Auto) Absolute Nucleated RBC Nucleated RBC % (auto) Polychromasia Anisocytosis PT INR APTT PTT Ratio Sodium Potassium Chloride Carbon Dioxide Anion Gap BUN Creatinine Est Cr Clr Drug Dosing Est GFR ( Amer) Est GFR (Non-Af Amer) BUN/Creatinine Ratio Glucose POC Glucose 114 H Calcium Magnesium Total Bilirubin AST ALT Alkaline Phosphatase Total Protein Albumin Globulin Albumin/Globulin Ratio Crossmatch See Detail 08/01/21 08/01/21 08/01/21 05:36 05:36 05:36 WBC 13.33 H RBC 3.15 L Hgb 9.6 L Hct 30.8 L MCV 97.8 MCH 30.5 MCHC 31.2 L RDW Std Deviation 73.3 H RDW Coeff of Oj 21.5 H Plt Count 143 MPV 10.4 Immature Gran % (Auto) 0.4 Neut % (Auto) 70.8 Lymph % (Auto) 18.7 Perkins % (Auto) 8.0 Eos % (Auto) 1.7 Baso % (Auto) 0.4 Neut # (Auto) 9.45 H Lymph # (Auto) 2.49 Perkins # (Auto) 1.07 H Eos # (Auto) 0.22 Baso # (Auto) 0.05 Immature Gran # (Auto) 0.05 H Absolute Nucleated RBC 0.09 H Nucleated RBC % (auto) 0.7 Polychromasia 1+ Anisocytosis Present PT 13.1 H INR 1.2 H APTT 34.1 H PTT Ratio 1.2 Sodium 136 Potassium 3.9 Chloride 102 Carbon Dioxide 26 Anion Gap 8 BUN 21 Creatinine 2.91 H Est Cr Clr Drug Dosing 14.4 Est GFR ( Amer) 16.4 Est GFR (Non-Af Amer) 14.1 BUN/Creatinine Ratio 7.2 L Glucose 149 H POC Glucose Calcium 8.1 L Magnesium 1.7 Total Bilirubin 1.9 H AST 20 ALT 7 Alkaline Phosphatase 144 H Total Protein 5.4 L Albumin 2.9 L Globulin 2.5 Albumin/Globulin Ratio 1.2 Crossmatch 08/01/21 07:25 WBC RBC Hgb Hct MCV MCH MCHC RDW Std Deviation RDW Coeff of Oj Plt Count MPV Immature Gran % (Auto) Neut % (Auto) Lymph % (Auto) Perkins % (Auto) Eos % (Auto) Baso % (Auto) Neut # (Auto) Lymph # (Auto) Perkins # (Auto) Eos # (Auto) Baso # (Auto) Immature Gran # (Auto) Absolute Nucleated RBC Nucleated RBC % (auto) Polychromasia Anisocytosis PT INR APTT PTT Ratio Sodium Potassium Chloride Carbon Dioxide Anion Gap BUN Creatinine Est Cr Clr Drug Dosing Est GFR ( Amer) Est GFR (Non-Af Amer) BUN/Creatinine Ratio Glucose POC Glucose 166 H Calcium Magnesium Total Bilirubin AST ALT Alkaline Phosphatase Total Protein Albumin Globulin Albumin/Globulin Ratio Crossmatch PG Care Time/CCT Total # of Minutes Spent Total Time Spent with Patient: Total time spent is greater than 50% in coordination of care (as documented) at patient's floor/unit and/or counseling patient: Coding Level of Care Code 28434 Subseq Hosp Care Lvl 3 Diagnoses End-stage renal disease on hemodialysis N18.6; Z99.2 Hypotension I95.9 Upper GI bleed K92.2 Anemia D64.9
[2021-08-01] MEDS: INSULIN GLARGINE SOLOSTAR 100 UNITS/ML 3 ML PEN SC SCH (09:31)
--- NOTE | 2021-08-01 14:10 | Pharmacy Report ---
Pharmacy Glycemic Short Note 2 - Date of Service August 01, 2021 - Glycemic Short BSG Results (Last 24 hours): 08/01/21 08/01/21 08/01/21 05:36 07:25 11:19 Glucose 149 H POC Glucose 166 H 81 OUTPATIENT ANTIDIABETIC REGIMEN: * Lantus 25 units SQ qAM * HbA1c: 7.7% (05/01/21) ASSESSMENT: 08/01: * Emily's BSGs have been stable over the last 24 hours: 145-114 mg/dL yesterday. * She received 6 units of insulin yesterday (5 units Lantus + 1 unit Novolog). * Fasting BSG was 166 mg/dL this AM. No changes to Lantus. Diet advanced to clear liquid today. * Postprandial BSGs have been trending downwards so loosened Novolog today. 07/30: * Ms Narvaez is an 86yo diabetic F admitted overnight with GI bleed, hypotension. * Pt initiated on conservative SQ basal/bolus insulin regimen. * Pt is on IV protonix, which will provide continuous dextrose. Pt is NPO. PLAN FOR INPATIENT GLYCEMIC CONTROL: * Basal insulin * Lantus 5 units SQ daily * Bolus insulin * NovoLog per scale ACHS or Q6hrs while NPO * Goal Range: Low 110 mg/dL - High 140 mg/dL * Correction Factor: 25 mg/dL/unit * Nutritional / Prandial insulin per carb ratio of 1 unit per 10 grams CHO consumed
[2021-08-01] MEDS: cephALEXin 500 MG CAP PO SCH (17:57)
[2021-08-01] MEDS: ATORVASTATIN 10 MG TAB PO SCH (20:11)
[2021-08-01] MEDS: PANTOprazole 40 MG in SYRINGE 0 ML IV SCH (20:12)
[2021-08-01] MEDS: PRAMIPEXOLE DIHYDROCHLO 0.25 MG TAB PO SCH (20:12)
[2021-08-01] MEDS: FLUTICASONE/VILANTEROL 200/25MCG 14 PUFFS/INHALER INH SCH (20:12)
[2021-08-01] MEDS: FAMOTIDINE 20 MG TAB PO SCH (20:12)
[2021-08-01] MEDS: DOCUSATE SODIUM 100 MG CAP PO SCH (20:24)
[2021-08-01 21:17] LABS: Hematocrit (blood only) 31.8 % (37-47)
--- NOTE | 2021-08-01 21:19 | Orthopedic Consultation ---
Date of Service August 01, 2021 Assessment & Plan (1) Wound of left leg: The wound is an unfortunate location. It has the appearance of a vascular insult with ulceration. No clear overt infection though it is tender. Recommend superficial wound care with the wound care team. Agree with coverage with antibiotics for now. No evidence of deep infection. There is little benefit to any surgical debridement at this point. The location and her medical comorbidities complicate this wound. It is not expected that she would be able to heal a skin graft. The skin is unable to mobilize for any primary closure. My concern is that there is vascular compromise to this area. I agree with her son the physician who suggested potential vascular studies. Definitive treatment may be an amputation if condition worsens. Would recommend containment with wound care and consideration of long-term wound VAC therapy to maintain a clean wound bed. Contact with further questions. History of Present Illness Reason for Consultation: Left Achilles wound Requesting Physician: . Attending Physician: Abhishek Prakash MD 86-year-old female with multiple complicated medical problems and recent functional decline, admitted with confusion. Orthopedics was consulted for surgical opinion regarding full-thickness wound over the left Achilles tendon. I spoke with the patient who seemed to have inconsistent insight into her situation. Most of the history was obtained from the chart as well as speaking with her son, Asif Narvaez in [place] who is a family practice physician. Up to 5 months ago she was a community ambulator with a walker. Unfortunately she has had several medical events and admissions recently, resulting in functional decline. She is end-stage renal disease and dialysis dependent. She is more wheelchair dependent right now as far as ambulatory status. She has a history of well-controlled diabetes mellitus. She does have significant cardiac disease. She is chronically anticoagulated and has metastatic breast cancer. Her son stated that the wound started about 6 weeks ago with an abrasion. The wound seem to get worse from there. The edges seem to proceed and became more ulcerated. This been superficially treated. He does not believe it is a decubitus ulcer. She has had some lower extremity edema that complicated the situation. He has not had suspicion of infection. He does suspect potential vascular insult. He is wondering if vascular study would be appropriate. The patient reports that the leg has been "painful." She said is lasted for about 2 weeks. Allergies Allergy/AdvReac Type Severity Reaction Status Date / Time cat dander Allergy Intermediate itching Verified 07/29/21 19:50 eyes, blisters pseudoephedrine AdvReac Intermediate Hallucinati Verified 07/29/21 19:50 ons hydroxyzine AdvReac Mild hallucinati Verified 07/29/21 19:50 ons Home Medications Medication Instructions Recorded Confirmed Type albuterol sulfate 1.25 mg/3 mL 1.25 mg INH Q6H PRN #90 ml 12/02/17 07/29/21 Rx solution for nebulization clopidogrel 75 mg tablet (Plavix) 75 mg PO QAM #90 tab 12/11/18 07/29/21 History fluticasone 232 mcg-salmeterol 14 1 puffs INHALATION QPM #1 ea 12/11/18 07/29/21 History mcg/actuation breath activated powdr (AirDuo RespiClick) albuterol sulfate 90 mcg/actuation 2 puffs INHALATION Q4H PRN #1 gm 02/18/19 07/29/21 History aerosol inhaler coenzyme Q10 100 mg capsule 100 mg PO QAM cap 02/18/19 07/29/21 History denosumab 120 mg/1.7 mL (70 mg/mL) 120 mg SUBCUT MONTHLY ml 02/18/19 07/29/21 History subcutaneous solution (Xgeva) docusate sodium 100 mg capsule 100 mg PO HS cap 02/18/19 07/29/21 History exemestane 25 mg tablet (Aromasin) 25 mg PO QAM tab 02/18/19 07/29/21 History isosorbide mononitrate 120 mg 120 mg PO QAM #90 tab 02/18/19 07/29/21 History tablet,extended release 24 hr nitroglycerin 0.4 mg sublingual 0.4 mg SL Q5M PRN #25 tab 02/18/19 07/29/21 History tablet pantoprazole 40 mg tablet,delayed 40 mg PO QAM 02/10/20 07/29/21 History release levothyroxine 150 mcg tablet 150 mcg PO QAM 08/23/20 07/29/21 History pramipexole 0.25 mg tablet 0.25 mg PO HS 08/23/20 07/29/21 History (Mirapex) febuxostat 40 mg tablet 40 mg PO QAM 10/05/20 07/29/21 History famotidine 20 mg tablet (Acid 2 mg PO QPM tab 07/06/21 07/29/21 History Maintenance Controller (famotidine)) apixaban 2.5 mg tablet (Eliquis) 2.5 mg PO BID 07/29/21 07/29/21 History atorvastatin 10 mg tablet 10 mg PO HS 07/29/21 07/29/21 History benzonatate 100 mg capsule 100 mg PO TID PRN 07/29/21 07/29/21 History bumetanide 2 mg tablet 2 mg PO QAM 07/29/21 07/29/21 History colchicine 0.6 mg tablet 0.6 mg PO BID PRN 07/29/21 07/29/21 History insulin glargine 100 unit/mL (3 25 unit SUBCUT DAILY 07/29/21 07/29/21 History mL) subcutaneous pen (Lantus Solostar U-100 Insulin) melatonin 10 mg capsule 10 mg PO HS PRN 07/29/21 07/29/21 History Past Med/Surg History Medical History Aspiration, chronic pulmonary Following with ENT and GI, 07/2020 hospitalization for PNA following EGD suspected aspiration Asthma Controlled per pt, rescue inhaler use last several mos ago Atrial fibrillation Dx 2017-on anticoagulation-follow with [facility] Breast cancer 2005- left mastectomy+ chemo and XRT with recurrence of breast CA to RT 4th & 5th ribs (oral/injectable medication) Left upper extremity restriction per pt CAD (coronary artery disease) 2 stents-LAD and D1 HORACE, July 2015. Follows with [facility]. Carotid artery stenosis, asymptomatic 70-79% stenosis of right ICA per 01/2020 carotid doppler Chronic anticoagulation Chronic diastolic (congestive) heart failure Follows with [facility], stable per note and pt-chronically sleeps in recliner Diabetes mellitus IDDM, controlled and stable per pt Dysphagia Occasional dysphagia and coughing with swallowing pills, improved without clear cause per pt. Pt denies re-visiting recommended EGD-following with PCP End stage renal disease End-stage renal disease on hemodialysis Fistula Right arm not using at present and needs further surgery GERD (gastroesophageal reflux disease) Controlled, stable per pt Hemodialysis patient Dialysis M,W,F- [facility] Using temporary cath in left shoulder Hyperlipidemia Hypertension Controlled, stable per pt Hypothyroidism Port-A-Cath in place Rt chest Pulmonary hypertension Mild per 05/04/21 ECHO- RVSP 39mmHg; follows with [facility] Rib lesion Bony metastasis per bone scan, pt states is on oral and injectable tx and following with PCP Sleep apnea No current device use Urinary leakage Surgical History History of appendectomy History of breast biopsy History of cardiac cath 2017 -2 stents-follows with [facility] History of carpal tunnel release of both wrists History of colonoscopy History of heart artery stent X 2 (2017) History of left mastectomy pt reports LUE restriction History of tonsillectomy and adenoidectomy History of total abdominal hysterectomy and bilateral salpingo-oophorectomy Family History Father Myocardial infarction Heart disease Mother Hypertension Other No family history of adverse response to anesthesia No family history of bleeding disorder Social History Smoking Status: Never smoker Second Hand Exposure: No; Hx Alcohol Use: No Hx Substance Use: No Preferred Language: Swazi Communication Ability: Effective Director Medical Economics Required: No Beliefs That Will Affect Care: None marital status: / Current Living Situation: Alone Current Living Situation Comment: FAMILY COMES MULTIPLE TIMES PER DAY current occupational status: retired 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 Physical Exam General: She is asleep but arousable. She is pleasant and cooperative. She directs my attention to the left leg appropriately. She answers questions inconsistently and seems somewhat disoriented. LLE: She has symmetric calf circumference. Skin is dry. There is appearance of resolved edema. She has protective light touch sensation throughout the plantar aspect of her foot and dorsal aspect of her toes. There is a question of a palpable/thready dorsalis pedis pulse. There is a longitudinal wound located over the tendinous portion of the Achilles. It has a darkened eschar in the central portion. The wound margins have an appearance of ulceration and recession. There is slight erythema in the skin but it matches the posterior aspect of her contralateral calf. There is tenderness in the surrounding area of the soft tissues of the wound including the deep Achilles. She also has some tenderness contralateral leg. The calf is supple. I am able to palpate an attempt to express drainage. This is somewhat uncomfortable but she tolerates it and there is no expressible drainage. Constitutional well developed and well nourished; no acute distress and not intoxicated appearing ENMT external ear and nose normal, oropharynx normal Respiratory normal respiratory effort; no respiratory distress Cardiovascular Extremities: normal capillary refill; no edema Skin no rashes, warm and dry Psychiatric Orientation: cooperative Results & Data Results & Data Laboratory Results H & H 07/29/21 07/29/21 07/30/21 Range/Units 18:30 23:52 05:33 Hgb 8.4 L 7.9 L 8.0 L (12.0-16.0) g/dL Hct 27.4 L 26.2 L 26.0 L (37-47) % 07/30/21 07/31/21 07/31/21 Range/Units 16:52 05:20 17:49 Hgb 10.5 L 10.1 L 10.3 L (12.0-16.0) g/dL Hct 33.3 L 32.5 L 33.2 L (37-47) % 08/01/21 08/01/21 Range/Units 05:36 21:02 Hgb 9.6 L 10.0 L (12.0-16.0) g/dL Hct 30.8 L 31.8 L (37-47) % Coagulation 07/29/21 07/30/21 07/31/21 Range/Units 18:30 05:33 05:20 INR 1.3 H 1.3 H 1.2 H (0.9-1.1) 08/01/21 Range/Units 05:36 INR 1.2 H (0.9-1.1) Laboratory Tests 05/11/21 07/29/21 07/30/21 06:17 18:30 05:33 WBC 14.22 H 10.05 11.50 H INR 07/31/21 08/01/21 08/01/21 05:20 05:36 05:36 WBC 13.11 H 13.33 H INR 1.2 H Diagnostic Findings . PG Care Time/CCT Total # of Minutes Spent Total Time Spent with Patient: Total time spent is greater than 50% in coordination of care (as documented) at patient's floor/unit and/or counseling patient: Coding Level of Care Code 05494 Inpt Consult Level 4 Diagnoses Wound of left leg S81.802A
[2021-08-02] MEDS: [UNRECOGNIZED DRUG - OTHER] SCH ×3 (02:24→16:16)
[2021-08-02 05:49] LABS: Basophils # (auto) 0.05 K/uL (0-0.2); Basophils % (auto) 0.4 %; Eosinophils # (auto) 0.24 K/uL (0-0.5); Eosinophils % (auto) 2.1 %; Hematocrit (blood only) 32.6 % (37-47); Hemoglobin 10.2 g/dL (12.0-16.0); Immature Granulocytes # (auto) 0.04 K/uL (0.00-0.02); Immature Granulocytes % (auto) 0.3 %; Lymphocytes # (auto) 2.25 K/uL (1.2-3.4); Lymphocytes % (auto) 19.3 %; Mean Corpuscular Hemoglobin 30.8 pg (25-34); Mean Corpuscular Hgb Conc 31.3 g/dL (32-36); Mean Corpuscular Volume 98.5 fL (80-100); Mean Platelet Volume 10.7 fL (7.4-10.4); Monocytes # (auto) 0.88 K/uL (0.11-0.59); Monocytes % (auto) 7.5 %; Neutrophils # (auto) 8.22 K/uL (1.4-6.5); Neutrophils % (auto) 70.4 %; Platelet Count 145 K/uL (130-400); RDW Coefficient of Variation 21.3 % (11.5-14.5); RDW Standard Deviation 73.3 fL (36.4-46.3); Red Blood Count 3.31 M/uL (4.2-5.4); White Blood Count 11.68 K/uL (4.8-10.8)
[2021-08-02] MEDS: LEVOTHYROXINE SODIUM 150 MCG TABLET PO SCH (06:00)
[2021-08-02 06:27] LABS: BUN Creatinine Ratio 7.3 (10-20); Calcium 8.2 mg/dl (8.5-10.1); Creatinine Clr Calc Pharmacy 9.8 ml/min; Est GFR (African American) 10.3 ml/min; Est GFR (Non-African American) 8.9 ml/min; Phosphorus 3.1 mg/dl (2.5-4.9); Potassium 3.9 mmol/L (3.5-5.1)
[2021-08-02 06:44] LABS: Anisocytosis Present; Polychromasia 1+
[2021-08-02] MEDS ORDERED: MIDODRINE HCL 10 MG TAB PO ONE (07:00)
--- NOTE | 2021-08-02 08:07 | Hospitalist Progress Note ---
Date of Service August 02, 2021 Assessment & Plan (1) Upper GI bleed: Plan: -Melena pre hospital, initially placed in icu due to concern for hypovolemic shock Currently on midodrine 2.5 mg 3 times daily, with 10 mg before dialysis, did not require IV vasopressors Clear diet -despite reports of melena, hgb has been stable Protonix bolus bid -2 units transfused with repeat H&H appropriate rise. GI consulted. Following for clinical stability, no plans for endoscopy at this time. Patient is high risk for intervention. Eliquis, held for bleeding. -Plavix restart 08/02/21 (2) Coronary disease: Plan: History of CAD HORACE to LAD and D1 07/2015 History of 70-79% stenosis of right ICA 07/30/2021 TTE: Normal LV SF, EF 55-60%, no wall motion abnormalities. Moderate right ventricular dilation with moderately reduced systolic function. Moderate biatrial dilation. Mild mitral regurg. Severe tricuspid regurg. RVSP 54 mmHg. Small pericardial effusion without evidence of tamponade. 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 nightly [employer], isosorbide 120 mg every morning to 716 07/31 Cardiology consulted. Known coronary disease, High-sensitivity troponin, peaked at 745, downtrending, absence of EKG changes, suspect demand ischemia - hold Plavix in the setting of acute bleeding. -on atorvastatin for cardiovascular risk reduction (3) End-stage renal disease on hemodialysis: Plan: prehospital dialysis does not have mature fistulae uses catheter (4) Chronic cough: Plan: Chronic cough nonproductive with dyspnea on exertion, and history of dysphagia has failed previous interventions. Patient's cough does resolve at night, was suspicious for neurogenic/habitualtic cough/psychogenic. Returns daytime at bedside. - no need for additionla speech intervention (5) Ulcer of left heel: Plan: unstageable followed by wound care. Orthopedice consult -keflex for 48 hours, follow clinically for infection (6) Atrial flutter with rapid ventricular response: Plan: History of p atrial flutter with RVR, on Eliquis 2.5 mg p.o. twice daily held on admission for acute bleeding Adequate rate control, sinus on admit (7) Confusion and disorientation: Plan: metabolic encephalopathy due to acute hypotension with GI bleed on admission Clinically improving (8) Diabetes: Plan: Insulin requiring with good outpt control A1C 5.5 Basal/bolus SSI and adequate glycemic control today. - Plan: PT/OT pending Admission and Anticipated Discharge Date Admission Date: July 29, 2021 Subjective pt was seen in dialysis, she offered no complaints. Cough persists, non productive Orthopedics consult regarding full thickness wound to heel reviewed, Recommend superficial wound care with the wound care team. Agree with coverage with antibiotics for now. No evidence of deep infection. There is little benefit to any surgical debridement at this point. Wound is not painful Review of Systems Review of Systems: Mild distress and fatigue no headache, no visual changes no speech or swallowing issues no chest pain, pressure or palpitations improved shortness of breath no abdominal pain, nausea or vomiting, diarrhea or constipation no dysuria, hematuria or frequency no focal joint pain does have open areas no back pain, CVA tenderness or radicular pain left foot is not painful, nor is sacrum no focal signs of weakness or numbness or altered sensation no complaints of anxiety or depression.. Physical Exam Physical Exam: The patient appeared well, no distress and tolerating dialysis Vital signs as documented. Lungs are clear to auscultation and appear unlabored, diminished at bases Cardiac exam, Rhythm is regular.. No murmurs, rubs or gallops. Abdominal exam reveals normal bowel sounds, soft non tender, no masses dressing on LLE chronic changes of arterial insufficiency bilaterally Neurologic exam is alert and oriented, peripheral neuropathy Skin is with open areas to ankle and buttock. Psychologically is without concerns for anxiety or depression. Results & Data Results & Data ([facility]) Vital Signs (Past 12 Hours) Vital Signs Temp Pulse Pulse Resp BP Pulse Ox 08/02/21 07:17 97.7 F 78 18 112/45 L 95 08/02/21 03:28 98.1 F 89 22 132/48 L 93 08/02/21 00:00 76 08/01/21 23:00 98.4 F 80 18 129/47 L 93 PG Care Time/CCT Total # of Minutes Spent Total Time Spent with Patient: Total time spent is greater than 50% in coordination of care (as documented) at patient's floor/unit and/or counseling patient: Coding Level of Care Code 72634 Subseq Hosp Care Lvl 3 Diagnoses Upper GI bleed K92.2 Coronary disease I25.10 End-stage renal disease on hemodialysis N18.6; Z99.2 Chronic cough R05 Ulcer of left heel L97.429 Atrial flutter with rapid ventricular response I48.92 Confusion and disorientation R41.0 Diabetes E11.9
[2021-08-02] MEDS ORDERED: IRON SUCROSE 100 MG in SYRINGE 0 ML IV ONE (09:00)
[2021-08-02] MEDS: INSULIN ASPART PER UNIT SC SCH ×4 (09:51→21:35)
--- NOTE | 2021-08-02 09:54 | Nephrology Progress Note ---
Date of Service August 02, 2021 Assessment & Plan (1) End-stage renal disease on hemodialysis: Plan: Orders for HD today entered into the EHR and reviewed with dialysis nurse. Emily will travel off monitor to HD unit today for treatment. Midodrine 10 mg provided pretreatment. Goal UF 3-4 L, as tolerated. AVF is now mature for use. Catheter has been used during admission. Electrolytes controlled. Clearance has been acceptable. Renal diet with 1 L daily fluid restriction. Medications appropriately dosed for kidney dysfunction. (2) Hypotension: Plan: BP acceptable. TID midodrine has been stopped. Will provided additional midodrine 10 mg prior to HD today for BP support to assist UF. (3) Upper GI bleed: Plan: H/H stable. Possible melena reported overnight. (4) Anemia: Plan: 2 units PRBC support provided 07/30. Epogen 24283 units and venofer 10 mg will be provided with HD today. Maintained on Micera as outpatient. Admission and Anticipated Discharge Date Admission Date: July 29, 2021 Subjective No acute events overnight. RN reported 2 black and tarry bowel movements overnight. Emily state that she feels well this AM. Cough persists. No pain. No fevers or chills. Denies dyspnea or chest pain. NSR on tele. Orthopedics consult regarding full thickness wound to heel reviewed. Review of Systems Review of Systems: All systems reviewed & are unremarkable except as noted in HPI & below Physical Exam Constitutional: well developed and + frail appearing; no acute distress Eyes: + anicteric sclerae; no corneal abnormality ENMT: Mouth: no oral mucosal abnormality and oral mucous membranes not dry Neck: normal visual inspection and trachea midline Respiratory: normal respiratory effort and + cough Auscultation: lungs clear to auscultation bilaterally Cardiovascular: Rate/Rhythm: regular rate Heart Sounds: normal S1 and normal S2 Extremities: + edema and + AV fistula Musculoskeletal: Extremities: no cyanosis and no clubbing Skin: + turgor decreased; no jaundice Neurologic: Motor/Sensory: no tremor and no asterixis Psychiatric: Orientation: alert and cooperative Results & Data ([facility]) Vital Signs (Past 12 Hours) Vital Signs Temp Pulse Pulse Resp BP Pulse Ox 08/02/21 07:17 36.5 C 78 18 112/45 L 95 08/02/21 03:28 36.7 C 89 22 132/48 L 93 08/02/21 00:00 76 08/01/21 23:00 36.9 C 80 18 129/47 L 93 Laboratory Results Laboratory Results - last 24 hr 08/01/21 08/01/21 08/01/21 11:19 16:20 20:01 WBC RBC Hgb Hct MCV MCH MCHC RDW Std Deviation RDW Coeff of Oj Plt Count MPV Immature Gran % (Auto) Neut % (Auto) Lymph % (Auto) Bradford % (Auto) Eos % (Auto) Baso % (Auto) Neut # (Auto) Lymph # (Auto) Bradford # (Auto) Eos # (Auto) Baso # (Auto) Immature Gran # (Auto) Polychromasia Anisocytosis Sodium Potassium Chloride Carbon Dioxide Anion Gap BUN Creatinine Est Cr Clr Drug Dosing Est GFR ( Amer) Est GFR (Non-Af Amer) BUN/Creatinine Ratio Glucose POC Glucose 81 109 H 158 H Calcium Phosphorus 08/01/21 08/02/21 08/02/21 21:02 05:31 05:31 WBC 11.68 H RBC 3.31 L Hgb 10.0 L 10.2 L Hct 31.8 L 32.6 L MCV 98.5 MCH 30.8 MCHC 31.3 L RDW Std Deviation 73.3 H RDW Coeff of Oj 21.3 H Plt Count 145 MPV 10.7 H Immature Gran % (Auto) 0.3 Neut % (Auto) 70.4 Lymph % (Auto) 19.3 Bradford % (Auto) 7.5 Eos % (Auto) 2.1 Baso % (Auto) 0.4 Neut # (Auto) 8.22 H Lymph # (Auto) 2.25 Bradford # (Auto) 0.88 H Eos # (Auto) 0.24 Baso # (Auto) 0.05 Immature Gran # (Auto) 0.04 H Polychromasia 1+ Anisocytosis Present Sodium 135 L Potassium 3.9 Chloride 102 Carbon Dioxide 26 Anion Gap 7 BUN 31 H Creatinine 4.27 H D Est Cr Clr Drug Dosing 9.8 Est GFR ( Amer) 10.3 Est GFR (Non-Af Amer) 8.9 BUN/Creatinine Ratio 7.3 L Glucose 105 H POC Glucose Calcium 8.2 L Phosphorus 3.1 08/02/21 07:17 WBC RBC Hgb Hct MCV MCH MCHC RDW Std Deviation RDW Coeff of Oj Plt Count MPV Immature Gran % (Auto) Neut % (Auto) Lymph % (Auto) Bradford % (Auto) Eos % (Auto) Baso % (Auto) Neut # (Auto) Lymph # (Auto) Bradford # (Auto) Eos # (Auto) Baso # (Auto) Immature Gran # (Auto) Polychromasia Anisocytosis Sodium Potassium Chloride Carbon Dioxide Anion Gap BUN Creatinine Est Cr Clr Drug Dosing Est GFR ( Amer) Est GFR (Non-Af Amer) BUN/Creatinine Ratio Glucose POC Glucose 88 Calcium Phosphorus PG Care Time/CCT Total # of Minutes Spent Total Time Spent with Patient: Total time spent is greater than 50% in coordination of care (as documented) at patient's floor/unit and/or counseling patient: Coding Level of Care Code 79922 Subseq Hosp Care Lvl 3 Diagnoses End-stage renal disease on hemodialysis N18.6; Z99.2 Hypotension I95.9 Upper GI bleed K92.2 Anemia D64.9
[2021-08-02] MEDS ORDERED: EPOETIN ALFA 10,000 UNITS/ML VIAL IV SCH (10:00)
[2021-08-02] MEDS: cephALEXin 500 MG CAP PO SCH (14:52)
[2021-08-02] MEDS: CLOPIDOGREL BISULFATE 75 MG TAB PO SCH (14:52)
[2021-08-02] MEDS: PANTOprazole 40 MG in SYRINGE 0 ML IV SCH ×2 (14:55→22:18)
--- NOTE | 2021-08-02 18:27 | Hospitalist Progress Note ---
Date of Service August 02, 2021 Assessment & Plan (1) Upper GI bleed: Plan: -Melena pre hospital, initially placed in icu due to concern for hypovolemic shock Currently on midodrine 2.5 mg 3 times daily, with 10 mg before dialysis, did not require IV vasopressors Clear diet -despite reports of melena, hgb has been stable Protonix bolus bid -2 units transfused with repeat H&H appropriate rise. GI consulted. Following for clinical stability, no plans for endoscopy at this time. Patient is high risk for intervention. Eliquis, held for bleeding. -Plavix restart 08/02/21 (2) Coronary disease: Plan: History of CAD HORACE to LAD and D1 07/2015 History of 70-79% stenosis of right ICA 07/30/2021 TTE: Normal LV SF, EF 55-60%, no wall motion abnormalities. Moderate right ventricular dilation with moderately reduced systolic function. Moderate biatrial dilation. Mild mitral regurg. Severe tricuspid regurg. RVSP 54 mmHg. Small pericardial effusion without evidence of tamponade. 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 Known coronary disease, High-sensitivity troponin, peaked at 745, downtrending, absence of EKG changes, suspect demand ischemia - hold Plavix in the setting of acute bleeding. -on atorvastatin for cardiovascular risk reduction (3) End-stage renal disease on hemodialysis: Plan: prehospital dialysis does not have mature fistulae uses catheter (4) Chronic cough: Plan: Chronic cough nonproductive with dyspnea on exertion, and history of dysphagia has failed previous interventions. Patient's cough does resolve at night, was suspicious for neurogenic/habitualtic cough/psychogenic. Returns daytime at bedside. - no need for additionla speech intervention (5) Ulcer of left heel: Plan: unstageable followed by wound care. Orthopedic consult *Pressure ulcer of medial coccyx region, unstageable, POA -keflex for 48 hours, follow clinically for infection (6) Atrial flutter with rapid ventricular response: Plan: History of p atrial flutter with RVR, on Eliquis 2.5 mg p.o. twice daily held on admission for acute bleeding Adequate rate control, sinus on admit (7) Confusion and disorientation: Plan: metabolic encephalopathy due to acute hypotension with GI bleed on admission Clinically improving (8) Diabetes: Plan: Insulin requiring with good outpt control A1C 5.5 Basal/bolus SSI and adequate glycemic control today. - Plan: PT/OT pending Admission and Anticipated Discharge Date Admission Date: July 29, 2021 Results & Data Results & Data ([facility]) Vital Signs (Past 12 Hours) Vital Signs Temp Pulse Pulse Pulse Resp BP BP 08/02/21 14:48 97.5 F L 90 16 100/58 L 08/02/21 14:19 97.5 F L 81 137/69 08/02/21 14:00 78 128/70 08/02/21 13:40 77 125/64 08/02/21 13:20 79 135/63 08/02/21 13:00 80 116/59 L 08/02/21 12:50 81 97/25 L 08/02/21 12:40 81 86/72 L 08/02/21 12:20 77 119/46 L 08/02/21 12:00 77 131/52 L 08/02/21 11:40 77 116/56 L 08/02/21 11:20 76 121/50 L 08/02/21 11:00 79 145/45 H 08/02/21 10:40 82 129/51 L 08/02/21 10:33 84 121/52 L 08/02/21 10:16 98.1 F 79 08/02/21 08:00 88 08/02/21 07:17 97.7 F 78 18 112/45 L Pulse Ox 08/02/21 14:48 98 08/02/21 14:19 08/02/21 14:00 08/02/21 13:40 08/02/21 13:20 08/02/21 13:00 08/02/21 12:50 08/02/21 12:40 08/02/21 12:20 08/02/21 12:00 08/02/21 11:40 08/02/21 11:20 08/02/21 11:00 08/02/21 10:40 08/02/21 10:33 08/02/21 10:16 08/02/21 08:00 08/02/21 07:17 95 PG Care Time/CCT Total # of Minutes Spent Total Time Spent with Patient: Total time spent is greater than 50% in coordination of care (as documented) at patient's floor/unit and/or counseling patient: Coding Level of Care Code None Diagnoses Upper GI bleed K92.2 Coronary disease I25.10 End-stage renal disease on hemodialysis N18.6; Z99.2 Chronic cough R05 Ulcer of left heel L97.429 Atrial flutter with rapid ventricular response I48.92 Confusion and disorientation R41.0 Diabetes E11.9
[2021-08-02] MEDS: FLUTICASONE/VILANTEROL 200/25MCG 14 PUFFS/INHALER INH SCH (21:34)
[2021-08-02] MEDS: BENZONATATE 100 MG CAPSULE PO PRN (21:34)
[2021-08-02] MEDS: FAMOTIDINE 20 MG TAB PO SCH (21:34)
[2021-08-02] MEDS: PRAMIPEXOLE DIHYDROCHLO 0.25 MG TAB PO SCH (21:34)
[2021-08-02] MEDS: ATORVASTATIN 10 MG TAB PO SCH (21:34)
[2021-08-02] MEDS: DOCUSATE SODIUM 100 MG CAP PO SCH (21:35)
[2021-08-03] MEDS: [UNRECOGNIZED DRUG - OTHER] SCH ×3 (00:01→16:31)
[2021-08-03] MEDS: HEPARIN 100 UNIT/ML 5ML FLUSH FLUSH PRN (02:16)
[2021-08-03] MEDS: LEVOTHYROXINE SODIUM 150 MCG TABLET PO SCH (06:22)
[2021-08-03 06:38] LABS: Hematocrit (blood only) 33.5 % (37-47); Hemoglobin 10.3 g/dL (12.0-16.0)
[2021-08-03] MEDS: INSULIN ASPART PER UNIT SC SCH ×4 (08:09→21:49)
[2021-08-03] MEDS: PANTOprazole 40 MG in SYRINGE 0 ML IV SCH (08:11)
[2021-08-03] MEDS: INSULIN GLARGINE SOLOSTAR 100 UNITS/ML 3 ML PEN SC SCH (08:13)
--- NOTE | 2021-08-03 08:51 | Hospitalist Progress Note ---
Date of Service August 03, 2021 Assessment & Plan (1) Upper GI bleed: Plan: -Melena pre hospital, initially placed in icu due to concern for hypovolemic shock Currently on midodrine 2.5 mg 3 times daily, with 10 mg before dialysis, did not require IV vasopressors will advance diet -despite reports of melena, hgb has been stable Protonix bolus bid, change to po -2 units transfused with repeat H&H appropriate rise. GI consulted. Following for clinical stability, no plans for endoscopy at this time. Patient is high risk for intervention. Eliquis, held for bleeding. -Plavix restart 08/02/21 (2) Coronary disease: Plan: History of CAD HORACE to LAD and D1 07/2015 History of 70-79% stenosis of right ICA 07/30/2021 TTE: Normal LV SF, EF 55-60%, no wall motion abnormalities. Moderate right ventricular dilation with moderately reduced systolic function. Moderate biatrial dilation. Mild mitral regurg. Severe tricuspid regurg. RVSP 54 mmHg. Small pericardial effusion without evidence of tamponade. 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 Known coronary disease, High-sensitivity troponin, peaked at 745, downtrending, absence of EKG changes, suspect demand ischemia - hold Plavix in the setting of acute bleeding. -on atorvastatin for cardiovascular risk reduction (3) End-stage renal disease on hemodialysis: Plan: prehospital dialysis does not have mature fistulae uses catheter (4) Chronic cough: Plan: Chronic cough nonproductive with dyspnea on exertion, and history of dysphagia has failed previous interventions. Patient's cough does resolve at night, was suspicious for neurogenic/habitualtic cough/psychogenic. Returns daytime at bedside. - no need for additional speech intervention with some confusion stopping tessalon (5) Ulcer of left heel: Plan: unstageable followed by wound care. Orthopedic consult *Pressure ulcer of medial coccyx region, unstageable, POA -keflex discontinued (6) Atrial flutter with rapid ventricular response: Plan: History of p atrial flutter with RVR, on Eliquis 2.5 mg p.o. 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 - Plan: PT/OT pending Admission and Anticipated Discharge Date Admission Date: July 29, 2021 Subjective pt is slighlty confused today, unclear if she is not oriented or trying to joke about where she is , will look for reversible causes of encephalopathy, stopping Meds checking urine. Review of Systems Review of Systems: Mild distress and fatigue, maybe slightly more confused 08/03 no headache, no visual changes no speech or swallowing issues no chest pain, pressure or palpitations improved shortness of breath no abdominal pain, nausea or vomiting, diarrhea or constipation no dysuria, hematuria or frequency no focal joint pain does have open areas on achilles and buttock no back pain, CVA tenderness or radicular pain left foot is not painful, nor is sacrum no focal signs of weakness or numbness or altered sensation no complaints of anxiety or depression.. Physical Exam Physical Exam: The patient appeared well, no distress but mild confusion midodrine help her to tolerate dialysis 08/02/21 Vital signs as documented. Lungs are clear to auscultation and appear unlabored, diminished at bases Cardiac exam, Rhythm is regular.. No murmurs, rubs or gallops. Abdominal exam reveals normal bowel sounds, soft non tender, no masses dressing on LLE chronic changes of arterial insufficiency bilaterally Neurologic exam is alert and oriented x2, peripheral neuropathy Skin is with open areas to ankle and buttock. Psychologically is with more confusion today Results & Data Results & Data ([facility]) Vital Signs (Past 12 Hours) Vital Signs Temp Pulse Pulse Resp BP Pulse Ox 08/03/21 07:23 98.4 F 90 18 95/55 L 96 08/03/21 06:07 100.9 F H 08/03/21 03:48 99.1 F 93 H 14 100/51 L 94 08/03/21 00:03 98.8 F 80 20 113/64 91 08/02/21 23:00 88 PG Care Time/CCT Total # of Minutes Spent Total Time Spent with Patient: Total time spent is greater than 50% in coordination of care (as documented) at patient's floor/unit and/or counseling patient: Coding Level of Care Code 79249 Subseq Hosp Care Lvl 2 Diagnoses Upper GI bleed K92.2 Coronary disease I25.10 End-stage renal disease on hemodialysis N18.6; Z99.2 Chronic cough R05 Ulcer of left heel L97.429 Atrial flutter with rapid ventricular response I48.92 Confusion and disorientation R41.0 Diabetes E11.9
[2021-08-03] MEDS: CLOPIDOGREL BISULFATE 75 MG TAB PO SCH (09:13)
[2021-08-03] MEDS: cephALEXin 500 MG CAP PO SCH (09:13)
[2021-08-03] MEDS: PANTOprazole 40 MG TAB PO SCH ×2 (09:13→21:37)
--- NOTE | 2021-08-03 09:48 | Nephrology Progress Note ---
Date of Service August 03, 2021 Assessment & Plan (1) End-stage renal disease on hemodialysis: Plan: Completed HD yesterday. Remains on MWF schedule. Clearances have been at goal. Volume status controlled. Tolerated additional UF. Slightly below previously established EDW. AVF is now mature for use. Catheter has been used during admission. Electrolytes controlled. Clearance has been acceptable. Renal diet with 1 L daily fluid restriction. Medications appropriately dosed for kidney dysfunction. (2) Hypotension: Plan: BP acceptable. Will provided additional midodrine 10 mg prior to HD today for BP support to assist UF. (3) Upper GI bleed: Plan: H/H stable. (4) Anemia: Plan: 2 units PRBC support provided 07/30. Epogen 31726 units and venofer 10 mg provided with HD yesterday. Maintained on Micera as outpatient. Admission and Anticipated Discharge Date Admission Date: July 29, 2021 Subjective No acute events overnight. Emily was sleeping this morning. She was disoriented and confused when she woke up. She told me that she was not able to have dialysis yesterday because there was flooding in the unit from a broken pipe. She was not immediately oriented to being at [facility] but recalled being in the hospital after I reminded her. She does not know why she is in the hospital. She denies pain. No melena reported overnight. She did complete a full treatment in the inpatient HD room. She tolerated dialysis well. UF 4 L. TDC used for treatment. Review of Systems Review of Systems: All systems reviewed & are unremarkable except as noted in HPI & below Physical Exam Constitutional: well developed and + frail appearing; no acute distress Eyes: + anicteric sclerae; no corneal abnormality ENMT: Mouth: no oral mucosal abnormality and oral mucous membranes not dry Neck: normal visual inspection and trachea midline Respiratory: normal respiratory effort and + cough Auscultation: lungs clear to auscultation bilaterally Cardiovascular: Rate/Rhythm: regular rate Heart Sounds: normal S1 and normal S2 Extremities: + edema and + AV fistula Musculoskeletal: Extremities: no cyanosis and no clubbing Skin: + turgor decreased; no jaundice Neurologic: Motor/Sensory: no tremor and no asterixis Psychiatric: Orientation: alert, oriented to person and cooperative; + not oriented to place and + not oriented to time Results & Data ([facility]) Vital Signs (Past 12 Hours) Vital Signs Temp Pulse Pulse Resp BP Pulse Ox 08/03/21 07:23 36.9 C 90 18 95/55 L 96 08/03/21 06:07 38.3 C H 08/03/21 03:48 37.3 C 93 H 14 100/51 L 94 08/03/21 00:03 37.1 C 80 20 113/64 91 08/02/21 23:00 88 Laboratory Results Laboratory Results - last 24 hr 08/02/21 08/02/21 08/02/21 16:17 16:33 21:05 Hgb Hct POC Glucose 124 H 187 H Hepatitis Be Antibody Pending Hepatitis Be Antigen Pending 08/03/21 08/03/21 05:51 07:22 Hgb 10.3 L Hct 33.5 L POC Glucose 117 H Hepatitis Be Antibody Hepatitis Be Antigen PG Care Time/CCT Total # of Minutes Spent Total Time Spent with Patient: Total time spent is greater than 50% in coordination of care (as documented) at patient's floor/unit and/or counseling patient: Coding Level of Care Code 06195 Subseq Hosp Care Lvl 3 Diagnoses End-stage renal disease on hemodialysis N18.6; Z99.2 Hypotension I95.9 Upper GI bleed K92.2 Anemia D64.9
--- NOTE | 2021-08-03 10:52 | Pharmacy Report ---
Pharmacy Glycemic Short Note 2 - Date of Service August 03, 2021 - Glycemic Short BSG Results (Last 24 hours): 08/02/21 08/02/21 08/03/21 16:17 21:05 07:22 POC Glucose 124 H 187 H 117 H OUTPATIENT ANTIDIABETIC REGIMEN: * Lantus 25 units SQ qAM * HbA1c: 7.7% (05/01/21) ASSESSMENT: 08/03: * BSGs again well controlled over last 24 hrs * Fasting BSG less than 100 yesterday and pt was scheduled for HD and as a precaution Lantus was held. * Fasting BSG 117 today, will resume low dose Lantus * Post-prandial BSGs at goal with exception of HS BSG in 180s. This remains acceptable. Zero carb intake documented yesterday. 08/01: * Emily's BSGs have been stable over the last 24 hours: 145-114 mg/dL yesterday. * She received 6 units of insulin yesterday (5 units Lantus + 1 unit Novolog). * Fasting BSG was 166 mg/dL this AM. No changes to Lantus. Diet advanced to clear liquid today. * Postprandial BSGs have been trending downwards so loosened Novolog today. 07/30: * Ms Narvaez is an 86yo diabetic F admitted overnight with GI bleed, hypotension. * Pt initiated on conservative SQ basal/bolus insulin regimen. * Pt is on IV protonix, which will provide continuous dextrose. Pt is NPO. PLAN FOR INPATIENT GLYCEMIC CONTROL: * Basal insulin * Resume Lantus 5 units SQ daily * Bolus insulin * NovoLog per scale ACHS or Q6hrs while NPO * Goal Range: Low 110 mg/dL - High 140 mg/dL * Correction Factor: 25 mg/dL/unit * Nutritional / Prandial insulin per carb ratio of 1 unit per 10 grams CHO consumed
--- NOTE | 2021-08-03 15:05 | Orthopedic Progress Note ---
Date of Service August 03, 2021 Assessment & Plan (1) Wound of left leg: Not much change in the past 48 hours. Continue to recommend wound care for superficial debridement, containment, and consideration of long-term wound VAC therapy. Contact with further questions. Subjective Sleepy and less cooperative than initial eval. She denied any pain in her leg. Review of Systems All systems reviewed & are unremarkable except as noted in HPI & below. Physical Exam Left lower extremity: The posterior calf wound was evaluated. Not much change. Some mild drainage onto the dressing which was a simple foam border dressing. Less tender about the wound. Results & Data Results & Data Laboratory Results . H & H 07/29/21 07/29/21 07/30/21 Range/Units 18:30 23:52 05:33 Hgb 8.4 L 7.9 L 8.0 L (12.0-16.0) g/dL Hct 27.4 L 26.2 L 26.0 L (37-47) % 07/30/21 07/31/21 07/31/21 Range/Units 16:52 05:20 17:49 Hgb 10.5 L 10.1 L 10.3 L (12.0-16.0) g/dL Hct 33.3 L 32.5 L 33.2 L (37-47) % 08/01/21 08/01/21 08/02/21 Range/Units 05:36 21:02 05:31 Hgb 9.6 L 10.0 L 10.2 L (12.0-16.0) g/dL Hct 30.8 L 31.8 L 32.6 L (37-47) % 08/03/21 Range/Units 05:51 Hgb 10.3 L (12.0-16.0) g/dL Hct 33.5 L (37-47) % Coagulation 07/29/21 07/30/21 07/31/21 Range/Units 18:30 05:33 05:20 INR 1.3 H 1.3 H 1.2 H (0.9-1.1) 08/01/21 Range/Units 05:36 INR 1.2 H (0.9-1.1) Diagnostic Findings . PG Care Time/CCT Total # of Minutes Spent Total Time Spent with Patient: Total time spent is greater than 50% in coordination of care (as documented) at patient's floor/unit and/or counseling patient: Coding Level of Care Code 33006 Subseq Hosp Care Lvl 2 Diagnoses Wound of left leg S81.802A
[2021-08-03] MEDS: FLUTICASONE/VILANTEROL 200/25MCG 14 PUFFS/INHALER INH SCH (21:36)
[2021-08-03] MEDS: ATORVASTATIN 10 MG TAB PO SCH (21:37)
[2021-08-03] MEDS: FAMOTIDINE 20 MG TAB PO SCH (21:37)
[2021-08-03] MEDS: DOCUSATE SODIUM 100 MG CAP PO SCH (21:48)
--- NOTE | 2021-08-04 03:30 | Communication Note ---
Date of Service: August 04, 2021 Notified by patient's RN that Emily's LUE was appreciably more swollen than the RUE with associated pitting edema (including from last night). Of note, Emily's AVF for ESRD is on the RIGHT side. Patient denies discomfort but is intermittently falling back asleep during my exam. Breathing comfortably. Her LUE is notably more swollen when compared to her RUE with associated 2+ pitting edema. On the medial surface of the L forearm, there is some bruising and mild erythema. Antecubital 20g IV site intact without surrounding erythema. Radial pulse somewhat difficult to palpate given the amount of swelling, but was present. Cap refill < 1 second. 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 Noted that patient is currently off her Eliquis for a GIB. In reviewing her records, I am unable to find mention that her LUE is usually more pronounced than her RUE. Given this and the hold on her anticoagulation, primary concern is transient development of a DVT. Doesn't appear to be deep soft tissue infection. Also possible this is rental representative of simple fluid retention in setting of her ESRD. Thankfully, there is no evidence of compartment syndrome on exam. Order LUE doppler now. F/U based on results. Elevated arm as possible and address pain with analgesics p.r.n. Resident Activity Tracking Resident Involvement: Resident Care Provided Care Provided: Adult Hospital Medicine
[2021-08-04 05:53] LABS: Hematocrit (blood only) 33.5 % (37-47); Hemoglobin 10.6 g/dL (12.0-16.0); Mean Corpuscular Hgb Conc 31.6 g/dL (32-36); Mean Platelet Volume 10.6 fL (7.4-10.4); Nucleated RBC # (auto) 0.03 K/uL (0-0); Nucleated RBC % (auto) 0.2 %; Platelet Count 169 K/uL (130-400); RDW Coefficient of Variation 20.6 % (11.5-14.5); RDW Standard Deviation 72.1 fL (36.4-46.3); Red Blood Count 3.42 M/uL (4.2-5.4); White Blood Count 12.17 K/uL (4.8-10.8)
[2021-08-04 06:22] LABS: BUN Creatinine Ratio 7.5 (10-20); Calcium 7.8 mg/dl (8.5-10.1); Creatinine Clr Calc Pharmacy 9.3 ml/min; Est GFR (African American) 9.5 ml/min; Est GFR (Non-African American) 8.2 ml/min; Magnesium 1.8 mg/dl (1.7-2.4); Potassium 3.8 mmol/L (3.5-5.1)
[2021-08-04] MEDS: LEVOTHYROXINE SODIUM 150 MCG TABLET PO SCH (06:42)
[2021-08-04] MEDS ORDERED: MIDODRINE HCL 2.5 MG TAB PO SCH (07:00)
--- NOTE | 2021-08-04 07:14 | Ultrasound Report ---
LEFT UPPER EXTREMITY VENOUS DOPPLER HISTORY: disproportionate left upper extremity swelling, off AC for GIB COMPARISON STUDY: None. FINDINGS: The left internal jugular vein is patent. There is normal flow within the left subclavian v ein. There is normal flow and compressibility within the left axillary, basilic, brachial, radial, ul ihsan, and visualized cephalic veins. Subcutaneous edema seen within the left forearm. There is an intr avenous line within the left cephalic vein. IMPRESSION: No DVT within the left upper extremity. ACT 112: Negative or not required by law. Electronically signed by: Lloyd Aaron M.D. 08/04/2021 7:13 AM
[2021-08-04] MEDS: INSULIN ASPART PER UNIT SC SCH ×4 (08:07→20:28)
[2021-08-04] MEDS: INSULIN GLARGINE SOLOSTAR 100 UNITS/ML 3 ML PEN SC SCH (08:07)
--- NOTE | 2021-08-04 09:00 | Nephrology Progress Note ---
Date of Service August 04, 2021 Assessment & Plan (1) End-stage renal disease on hemodialysis: Plan: IHD MWF schedule. Orders for HD today entered into the EHR and reviewed with dialysis nurse this AM. High IDWG and some degree of chronic hypotension were barriers to volume control as outpatient. Weight down to 77 kg while inpatient with additional fluid removal. Midodrine has been provided prior to HD for BP support. Midodrine 5 mg provided prior to HD this AM. Outpatient Rx at [facility] has been 4 hrs, 180 optiflux, Qb 400 Qd 800, 3 K bath. EDW 82.5 kg. Emily has been dialyzing via a TDC. She has a RUE AVF which was transposed by Dr. Morris in May. The AVF was access on 07/26 for treatment. Needle placement was difficult, notably due to edema. The fistula was then rested. TDC has been functioning well. RN was advised this AM that AVF may be accessed for use this AM if comfortable. Clearances have been acceptable. Volume status improving. EDW will need to be adjusted at discharge. Electrolytes controlled. Clearance has been acceptable. Renal diet with 1 L daily fluid restriction. Medications appropriately dosed for kidney dysfunction. (2) Hypotension: Plan: BP acceptable. Will provided additional midodrine 5 mg prior to HD today for BP support to assist UF. (3) Upper GI bleed: Plan: H/H stable. No endoscopic evaluation completed due to high risk and clinical improvement with supportive care. (4) Anemia: Plan: 2 units PRBC support provided 07/30. Epogen 60193 units and venofer 100 mg provided with HD 08/02. 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 Duplex negative for DVT. Admission and Anticipated Discharge Date Admission Date: July 29, 2021 Subjective No acute events overnight. No melena or hematochezia reported. No fevers or chills. Denies pain. Emily was sitting upright in bed this AM. She recognized me. She is oriented to person and place. No acute complaints. Remains inpatient pending placement for unstageable left heel ulcer. Review of Systems Review of Systems: All systems reviewed & are unremarkable except as noted in HPI & below Physical Exam Constitutional: well developed and + frail appearing; no acute distress Eyes: + anicteric sclerae; no corneal abnormality ENMT: Mouth: no oral mucosal abnormality and oral mucous membranes not dry Neck: normal visual inspection and trachea midline Respiratory: normal respiratory effort and + cough Auscultation: lungs clear to auscultation bilaterally Cardiovascular: Rate/Rhythm: regular rate Heart Sounds: normal S1 and normal S2 Extremities: + edema (Improving UE L>R, BL LE 2+) and + AV fistula (R BC with weak thrill and good bruit) Musculoskeletal: Extremities: no cyanosis and no clubbing Skin: + turgor decreased; no jaundice Neurologic: Motor/Sensory: no tremor and no asterixis Psychiatric: Orientation: alert, oriented to person, oriented to place ("hospital") and cooperative; + not oriented to time Results & Data ([facility]) Vital Signs (Past 12 Hours) Vital Signs Temp Pulse Pulse Pulse Resp BP Pulse Ox 08/04/21 07:55 77 113/52 L 08/04/21 02:45 36.4 C L 73 20 108/69 91 08/04/21 00:28 37.1 C 73 20 111/48 L 91 08/03/21 23:00 73 08/03/21 21:16 36.4 C L 70 22 139/62 93 Laboratory Results Laboratory Results - last 24 hr 08/03/21 08/03/21 08/03/21 11:23 16:22 21:18 WBC RBC Hgb Hct MCV MCH MCHC RDW Std Deviation RDW Coeff of Oj Plt Count MPV Absolute Nucleated RBC Nucleated RBC % (auto) Sodium Potassium Chloride Carbon Dioxide Anion Gap BUN Creatinine Est Cr Clr Drug Dosing Est GFR ( Amer) Est GFR (Non-Af Amer) BUN/Creatinine Ratio Glucose POC Glucose 185 H 275 H 184 H Calcium Magnesium 08/04/21 08/04/21 08/04/21 05:32 05:32 07:25 WBC 12.17 H RBC 3.42 L Hgb 10.6 L Hct 33.5 L MCV 98.0 MCH 31.0 MCHC 31.6 L RDW Std Deviation 72.1 H RDW Coeff of Oj 20.6 H Plt Count 169 MPV 10.6 H Absolute Nucleated RBC 0.03 H Nucleated RBC % (auto) 0.2 Sodium 137 Potassium 3.8 Chloride 104 Carbon Dioxide 23 Anion Gap 10 BUN 34 H Creatinine 4.56 H* Est Cr Clr Drug Dosing 9.3 Est GFR ( Amer) 9.5 Est GFR (Non-Af Amer) 8.2 BUN/Creatinine Ratio 7.5 L Glucose 122 H POC Glucose 123 H Calcium 7.8 L Magnesium 1.8 PG Care Time/CCT Total # of Minutes Spent Total Time Spent with Patient: Total time spent is greater than 50% in coordination of care (as documented) at patient's floor/unit and/or counseling patient: Coding Level of Care Code 78192 Subseq Hosp Care Lvl 3 Diagnoses End-stage renal disease on hemodialysis N18.6; Z99.2 Hypotension I95.9 Upper GI bleed K92.2 Anemia D64.9 Edema of left upper arm R60.0
--- NOTE | 2021-08-04 11:54 | Hospitalist Progress Note ---
Date of Service August 04, 2021 Assessment & Plan (1) Upper GI bleed: Plan: -Melena pre hospital, initially placed in icu due to concern for hypovolemic shock Currently on midodrine 2.5 mg 3 times daily, with 10 mg before dialysis, did not require IV vasopressors will advance diet -despite reports of melena, hgb has been stable Protonix po bid -2 units transfused with repeat H&H appropriate rise. GI consulted. Following for clinical stability, no plans for endoscopy at this time. Patient is high risk for intervention. Eliquis, held for bleeding. -Plavix restarted 08/02/21 (2) Coronary disease: Plan: History of CAD HORACE to LAD and D1 07/2015 History of 70-79% stenosis of right ICA 07/30/2021 TTE: Normal LV SF, EF 55-60%, no wall motion abnormalities. Moderate right ventricular dilation with moderately reduced systolic function. Moderate biatrial dilation. Mild mitral regurg. Severe tricuspid regurg. RVSP 54 mmHg. Small pericardial effusion without evidence of tamponade. 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 Known coronary disease, High-sensitivity troponin, peaked at 745, downtrending, absence of EKG changes, suspect demand ischemia - hold Plavix in the setting of acute bleeding. -on atorvastatin for cardiovascular risk reduction (3) End-stage renal disease on hemodialysis: Plan: prehospital dialysis does not have mature fistulae uses catheter (4) Chronic cough: Plan: Chronic cough nonproductive with dyspnea on exertion, and history of dysphagia has failed previous interventions. Patient's cough does resolve at night, was suspicious for neurogenic/habitualtic cough/psychogenic. Returns daytime at bedside. - no need for additional speech intervention with some confusion stopping tessalon (5) Ulcer of left heel: Plan: unstageable followed by wound care. Orthopedic consult *Pressure ulcer of medial coccyx region, unstageable, POA -keflex discontinued (6) Atrial flutter with rapid ventricular response: Plan: History of p atrial flutter with RVR, on Eliquis 2.5 mg p.o. twice daily held on admission for acute bleeding Adequate rate control, sinus on admit (7) Confusion and disorientation: Plan: metabolic encephalopathy due to acute hypotension with GI bleed on admission Clinically seems to have stalled, stop any cotton roll packer affecting meds, check ua (8) Diabetes: Plan: Insulin requiring with good outpt control A1C 5.5 Basal/bolus SSI and adequate glycemic control today. - Plan: pt will need snf placement in a dialysis accommodating facility Admission and Anticipated Discharge Date Admission Date: July 29, 2021 Subjective pt is pleasant, she seems to be joking to cover up some memory loss has no specific focal complaints Review of Systems Review of Systems: Mild distress and fatigue, maybe slightly seems to be at baseline with memory loss no headache, no visual changes no speech or swallowing issues no chest pain, pressure or palpitations improved shortness of breath no abdominal pain, nausea or vomiting, diarrhea or constipation no dysuria, hematuria or frequency no focal joint pain does have open areas on achilles and buttock no back pain, CVA tenderness or radicular pain left foot is not painful, nor is sacrum no focal signs of weakness or numbness or altered sensation no complaints of anxiety or depression.. Physical Exam Physical Exam: The patient appeared well, no distress but mild confusion midodrine help her to tolerate dialysis 08/04/21 Vital signs as documented. Lungs are clear to auscultation and appear unlabored, diminished at bases Cardiac exam, Rhythm is regular.. No murmurs, rubs or gallops. Abdominal exam reveals normal bowel sounds, soft non tender, no masses dressing on LLE chronic changes of arterial insufficiency bilaterally Neurologic exam is alert and oriented x2, peripheral neuropathy Skin is with open areas to ankle and buttock. Psychologically is with more confusion today Results & Data Results & Data ([facility]) Vital Signs (Past 12 Hours) Vital Signs Temp Pulse Pulse Pulse Resp BP BP 08/04/21 11:20 79 08/04/21 11:00 86 112/67 08/04/21 10:40 91 H 124/40 L 08/04/21 10:20 73 98/49 L 08/04/21 10:00 78 120/49 L 08/04/21 09:40 81 108/50 L 08/04/21 09:22 97.7 F 76 05/06/22 07:55 77 113/52 L 08/04/21 02:45 97.5 F L 73 20 108/69 08/04/21 00:28 98.8 F 73 20 111/48 L Pulse Ox 08/04/21 11:20 08/04/21 11:00 08/04/21 10:40 08/04/21 10:20 08/04/21 10:00 08/04/21 09:40 08/04/21 09:22 08/04/21 07:55 08/04/21 02:45 91 08/04/21 00:28 91 PG Care Time/CCT Total # of Minutes Spent Total Time Spent with Patient: Total time spent is greater than 50% in coordination of care (as documented) at patient's floor/unit and/or counseling patient: Coding Level of Care Code 54064 Subseq Hosp Care Lvl 2 Diagnoses Upper GI bleed K92.2 Coronary disease I25.10 End-stage renal disease on hemodialysis N18.6; Z99.2 Chronic cough R05 Ulcer of left heel L97.429 Atrial flutter with rapid ventricular response I48.92 Confusion and disorientation R41.0 Diabetes E11.9
--- NOTE | 2021-08-04 12:58 | Pharmacy Report ---
Pharmacy Glycemic Short Note 2 - Date of Service August 04, 2021 - Glycemic Short BSG Results (Last 24 hours): 08/03/21 08/03/21 08/04/21 16:22 21:18 05:32 Glucose 122 H POC Glucose 275 H 184 H 08/04/21 07:25 Glucose POC Glucose 123 H OUTPATIENT ANTIDIABETIC REGIMEN: * Lantus 25 units SQ qAM * HbA1c: 7.7% (05/01/21) ASSESSMENT: 08/04: * Glycemic control appeared to deteriorate yesterday, possibly due to uncovered carb intake? * Fasting BSG 123 this AM with 5 units basal on board. Will begin slow upward titration as carb intake has been documented this am as well as dinnertime yesterday. * Will follow post-prandial BSGs today to determine if adjustment to CF and CR necessary. High post-prandial BSGs yesterday may have been due to lack of meal coverage w/ breakfast and lunch. 08/03: * BSGs again well controlled over last 24 hrs * Fasting BSG less than 100 yesterday and pt was scheduled for HD and as a precaution Lantus was held. * Fasting BSG 117 today, will resume low dose Lantus * Post-prandial BSGs at goal with exception of HS BSG in 180s. This remains acceptable. Zero carb intake documented yesterday. 08/01: * Emily's BSGs have been stable over the last 24 hours: 145-114 mg/dL yesterday. * She received 6 units of insulin yesterday (5 units Lantus + 1 unit Novolog). * Fasting BSG was 166 mg/dL this AM. No changes to Lantus. Diet advanced to clear liquid today. * Postprandial BSGs have been trending downwards so loosened Novolog today. 07/30: * Ms Narvaez is an 86yo diabetic F admitted overnight with GI bleed, hypotension. * Pt initiated on conservative SQ basal/bolus insulin regimen. * Pt is on IV protonix, which will provide continuous dextrose. Pt is NPO. PLAN FOR INPATIENT GLYCEMIC CONTROL: * Basal insulin * Lantus 10 units SQ daily * Bolus insulin * NovoLog per scale ACHS or Q6hrs while NPO * Goal Range: Low 110 mg/dL - High 140 mg/dL * Correction Factor: 25 mg/dL/unit * Nutritional / Prandial insulin per carb ratio of 1 unit per 10 grams CHO consumed
[2021-08-04] MEDS: CLOPIDOGREL BISULFATE 75 MG TAB PO SCH (13:30)
[2021-08-04] MEDS: PANTOprazole 40 MG TAB PO SCH ×2 (13:30→19:43)
[2021-08-04] MEDS: FAMOTIDINE 20 MG TAB PO SCH (19:41)
[2021-08-04] MEDS: ATORVASTATIN 10 MG TAB PO SCH (19:41)
[2021-08-04] MEDS: FLUTICASONE/VILANTEROL 200/25MCG 14 PUFFS/INHALER INH SCH (19:42)
[2021-08-04] MEDS: DOCUSATE SODIUM 100 MG CAP PO SCH (19:43)
[2021-08-04] MEDS: MELATONIN 3 MG TAB PO PRN (23:03)
[2021-08-05] MEDS: LEVOTHYROXINE SODIUM 150 MCG TABLET PO SCH (05:51)
--- NOTE | 2021-08-05 07:06 | Communication Note ---
Date of Service: August 05, 2021 ~10PM: Messaged about increasing agitation/confusion this evening. Melatonin 9mg qhs helped w/ sleep last night, so have reordered. ~4AM: Patient slept earlier, but now is more agitated and wanting to leave. Deferring agitation medication and restraints at this time. Instructed nurse to notify if worsens.
[2021-08-05] MEDS: INSULIN ASPART PER UNIT SC SCH ×4 (07:50→20:33)
[2021-08-05] MEDS: HEPARIN 100 UNIT/ML 5ML FLUSH FLUSH PRN (08:19)
[2021-08-05] MEDS: CLOPIDOGREL BISULFATE 75 MG TAB PO SCH (08:33)
[2021-08-05] MEDS: PANTOprazole 40 MG TAB PO SCH ×2 (08:33→19:36)
--- NOTE | 2021-08-05 08:43 | Nephrology Progress Note ---
Date of Service August 05, 2021 Assessment & Plan (1) End-stage renal disease on hemodialysis: Plan: * ESKD on HD MWF at [facility] (4 hrs, 180 optiflux, Qb 400 Qd 800, 3 K bath. EDW 82.5 kg) * EDW has been reduced to 74 kg this hospitalization. Patient now appears cli nically euvolemic to volume contracted. Cough has resolved * No acute indication for HD today. Will reassess in am * Will consider using AVF w/ next HD treatment (2) Hypotension: Plan: * BP today is acceptable. Will monitor. Midodrine had been administered during this hospitalization to allow UF (3) Upper GI bleed: Plan: * H/H stable. No endoscopic evaluation completed due to high risk and clinical improvement with supportive care (4) Anemia: Plan: * 2 units PRBC support provided 07/30. 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 Duplex negative for DVT. Admission and Anticipated Discharge Date Admission Date: July 29, 2021 Subjective Ms. Narvaez was evaluated in her hospital room this morning. She was breathing comfortably flat in bed while on O2 at 2L/min NC and had no cough. Ms. Narvaez was oriented to self and place only. She complained of weakness. Review of Systems Constitutional: + weakness Eyes: no problem reported Respiratory: no cough and no dyspnea Cardiovascular: no chest pain, no palpitations and no edema Gastrointestinal: no abdominal pain, no nausea, no vomiting and no diarrhea/loose stools Genitourinary: no dysuria and no hematuria Neurologic: no confusion Physical Exam Constitutional: + frail appearing; not in distress Eyes: PERRL, conjunctivae normal, anicteric sclerae ENMT: external ear and nose normal, oropharynx normal Mouth: + dry oral mucous membranes Neck: trachea midline, no thyromegaly L IJ TCC with clean dry dressing Respiratory: normal respiratory effort, lungs clear to auscultation Cardiovascular: RRR, no murmur, no edema R BC AVF + thrill & bruit Gastrointestinal (Abdomen): normal bowel sounds, soft, nontender, no hepatosplenomegaly Skin: Chronic lymphedema of L arm related to prior mastectomy Neurologic: awake; not confused Results & Data ([facility]) Vital Signs (Past 12 Hours) Vital Signs Temp Pulse Pulse Pulse Resp BP Pulse Ox 08/05/21 07:33 36.5 C 94 H 16 115/52 L 95 08/05/21 02:35 36.5 C 96 H 18 98/40 L 97 08/04/21 23:08 37 C 95 H 18 106/49 L 94 08/04/21 22:30 96 H Laboratory Results Laboratory Tests 08/05/21 08:46 WBC 9.16 Hgb 11.2 L Hct 35.0 L Plt Count 181 Laboratory Tests 08/05/21 08:46 Sodium 137 Potassium 3.7 Chloride 104 Carbon Dioxide 24 BUN 24 H Creatinine 3.57 H D Glucose 152 H Calcium 8.0 L PG Care Time/CCT Total # of Minutes Spent Total Time Spent with Patient: Total time spent is greater than 50% in coordination of care (as documented) at patient's floor/unit and/or counseling patient: Coding Level of Care Code 63357 Subseq Hosp Care Lvl 3 Diagnoses End-stage renal disease on hemodialysis N18.6; Z99.2 Hypotension I95.9 Upper GI bleed K92.2 Anemia D64.9 Edema of left upper arm R60.0
[2021-08-05 09:05] LABS: Hemoglobin 11.2 g/dL (12.0-16.0); Mean Corpuscular Hemoglobin 31.4 pg (25-34); Mean Platelet Volume 11.5 fL (7.4-10.4); Nucleated RBC # (auto) 0.02 K/uL (0-0); Nucleated RBC % (auto) 0.3 %; Platelet Count 181 K/uL (130-400); RDW Standard Deviation 70.6 fL (36.4-46.3); Red Blood Count 3.57 M/uL (4.2-5.4); White Blood Count 9.16 K/uL (4.8-10.8)
[2021-08-05] MEDS: INSULIN GLARGINE SOLOSTAR 100 UNITS/ML 3 ML PEN SC SCH (09:35)
[2021-08-05 09:38] LABS: BUN Creatinine Ratio 6.7 (10-20); Creatinine Clr Calc Pharmacy 11.7 ml/min; Est GFR (African American) 12.8 ml/min; Potassium 3.7 mmol/L (3.5-5.1)
--- NOTE | 2021-08-05 11:59 | Hospitalist Progress Note ---
Date of Service August 05, 2021 Assessment & Plan (1) Upper GI bleed: Plan: -Stable/resolved melena pre hospital, initially placed in icu due to concern for hypovolemic shock Currently on midodrine 2.5 mg 3 times daily, with 10 mg before dialysis, did not require IV vasopressors Tolerating advanced diet Protonix po bid -2 units transfused with repeat H&H appropriate rise. Hemoglobin is remained stable since GI consulted. Following for clinical stability, no plans for endoscopy at this time. Patient is high risk for intervention. Eliquis, held for bleeding. -Plavix restarted 08/02/21 (2) Coronary disease: Plan: History of CAD HORACE to LAD and D1 07/2015 History of 70-79% stenosis of right ICA 07/30/2021 TTE: Normal LV SF, EF 55-60%, no wall motion abnormalities. Moderate right ventricular dilation with moderately reduced systolic function. Moderate biatrial dilation. Mild mitral regurg. Severe tricuspid regurg. RVSP 54 mmHg. Small pericardial effusion without evidence of tamponade. 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 Known coronary disease, High-sensitivity troponin, peaked at 745, downtrending, absence of EKG changes, suspect demand ischemia - hold Plavix in the setting of acute bleeding. -on atorvastatin for cardiovascular risk reduction (3) End-stage renal disease on hemodialysis: Plan: prehospital dialysis does not have mature fistulae uses catheter (4) Chronic cough: Plan: Chronic cough nonproductive with dyspnea on exertion, and history of dysphagia has failed previous interventions. Patient's cough does resolve at night, was suspicious for neurogenic/habitualtic cough/psychogenic. Returns daytime at bedside. - no need for additional speech intervention with some confusion stopping tessalon (5) Ulcer of left heel: Plan: unstageable followed by wound care. Orthopedic consult *Pressure ulcer of medial coccyx region, unstageable, POA -keflex discontinued (6) Atrial flutter with rapid ventricular response: Plan: History of p atrial flutter with RVR, on Eliquis 2.5 mg p.o. twice daily held on admission for acute bleeding Adequate rate control, sinus on admit (7) Confusion and disorientation: Plan: metabolic encephalopathy due to acute hypotension with GI bleed on admission Clinically seems to have stalled, stop any rand butter affecting meds, check ua (8) Diabetes: Plan: Insulin requiring with good outpt control A1C 5.5 Basal/bolus SSI and adequate glycemic control today. - Plan: pt will need snf placement in a dialysis accommodating facility Admission and Anticipated Discharge Date Admission Date: July 29, 2021 Subjective Patient remains pleasantly confused she is lying mostly flat she does not have any increased work of breathing. She does have persistent chronic arterial insufficiency changes to her lower extremities with her ulceration present on her left Achilles however is not painful or draining at this point time Review of Systems Review of Systems: Mild distress and fatigue, maybe slightly seems to be at baseline with memory loss no headache, no visual changes no speech or swallowing issues no chest pain, pressure or palpitations improved shortness of breath no abdominal pain, nausea or vomiting, diarrhea or constipation no dysuria, hematuria or frequency no focal joint pain does have open areas on achilles and buttock no back pain, CVA tenderness or radicular pain left foot is not painful, nor is sacrum no focal signs of weakness or numbness or altered sensation no complaints of anxiety or depression.. Physical Exam Physical Exam: The patient appeared well, no distress but mild confusion midodrine help her to tolerate dialysis 08/04/21 Vital signs as documented. Lungs are clear to auscultation and appear unlabored, diminished at bases Cardiac exam, Rhythm is regular.. No murmurs, rubs or gallops. Abdominal exam reveals normal bowel sounds, soft non tender, no masses dressing on LLE chronic changes of arterial insufficiency bilaterally Neurologic exam is alert and oriented x2, peripheral neuropathy Skin is with open areas to ankle and buttock. Psychologically is with more confusion today Results & Data Results & Data ([facility]) Vital Signs (Past 12 Hours) Vital Signs Temp Pulse Pulse Resp BP Pulse Ox 08/05/21 11:28 97.5 F L 87 22 107/47 L 97 08/05/21 07:33 97.7 F 94 H 16 115/52 L 95 08/05/21 02:35 97.7 F 96 H 18 98/40 L 97 PG Care Time/CCT Total # of Minutes Spent Total Time Spent with Patient: Total time spent is greater than 50% in coordination of care (as documented) at patient's floor/unit and/or counseling patient: Coding Level of Care Code 51124 Subseq Hosp Care Lvl 2 Diagnoses Upper GI bleed K92.2 Coronary disease I25.10 End-stage renal disease on hemodialysis N18.6; Z99.2 Chronic cough R05 Ulcer of left heel L97.429 Atrial flutter with rapid ventricular response I48.92 Confusion and disorientation R41.0 Diabetes E11.9
[2021-08-05] MEDS: FLUTICASONE/VILANTEROL 200/25MCG 14 PUFFS/INHALER INH SCH (19:33)
[2021-08-05] MEDS: MELATONIN 3 MG TAB PO PRN (19:33)
[2021-08-05] MEDS: FAMOTIDINE 20 MG TAB PO SCH (19:35)
[2021-08-05] MEDS: ATORVASTATIN 10 MG TAB PO SCH (19:35)
[2021-08-05] MEDS: DOCUSATE SODIUM 100 MG CAP PO SCH (19:36)
[2021-08-06 04:50] LABS: Mean Corpuscular Hemoglobin 30.8 pg (25-34); Mean Corpuscular Hgb Conc 31.4 g/dL (32-36); Platelet Count 201 K/uL (130-400); RDW Coefficient of Variation 19.7 % (11.5-14.5); RDW Standard Deviation 69.9 fL (36.4-46.3); Red Blood Count 3.57 M/uL (4.2-5.4)
[2021-08-06 05:11] LABS: BUN Creatinine Ratio 6.9 (10-20); Est GFR (African American) 9.3 ml/min; Potassium 3.8 mmol/L (3.5-5.1)
[2021-08-06] MEDS: LEVOTHYROXINE SODIUM 150 MCG TABLET PO SCH (05:19)
[2021-08-06] MEDS: INSULIN GLARGINE SOLOSTAR 100 UNITS/ML 3 ML PEN SC SCH (07:50)
[2021-08-06] MEDS: INSULIN ASPART PER UNIT SC SCH ×4 (07:50→21:18)
--- NOTE | 2021-08-06 07:51 | Nephrology Progress Note ---
Date of Service August 06, 2021 Assessment & Plan (1) End-stage renal disease on hemodialysis: Plan: * ESKD on HD MWF at [facility] (4 hrs, 180 optiflux, Qb 400 Qd 800, 3 K bath. EDW 82.5 kg) * EDW has been reduced to 74 kg this hospitalization. Patient now appears cli nically euvolemic to volume contracted. Cough has improved * No acute indication for HD today. Will schedule next HD for am * Will attempt to use AVF w/ next HD treatment (2) Hypotension: Plan: * BP today is acceptable. Will monitor. Midodrine had been administered during this hospitalization to allow UF (3) Upper GI bleed: Plan: * H/H stable. No endoscopic evaluation completed due to high risk and clinical improvement with supportive care (4) Anemia: Plan: * 2 units PRBC support provided 07/30. 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 Duplex negative for DVT. Admission and Anticipated Discharge Date Admission Date: July 29, 2021 Subjective Ms. Narvaez was evaluated in her hospital room this morning. She was breathing comfortably flat in bed while on O2 at 2L/min NC. She was oriented to self and place only. She developed a cough when asked if it was a concern. Review of Systems Constitutional: + weakness Eyes: no problem reported Respiratory: no dyspnea Cardiovascular: no chest pain, no palpitations and no edema Gastrointestinal: no abdominal pain, no nausea, no vomiting and no diarrhea/loose stools Genitourinary: no dysuria and no hematuria Neurologic: no confusion Physical Exam Constitutional: + frail appearing; not in distress Eyes: PERRL, conjunctivae normal, anicteric sclerae ENMT: external ear and nose normal, oropharynx normal Mouth: + dry oral mucous membranes Neck: trachea midline, no thyromegaly Respiratory: normal respiratory effort, lungs clear to auscultation Cardiovascular: RRR, no murmur, no edema Gastrointestinal (Abdomen): normal bowel sounds, soft, nontender, no hepatosplenomegaly Neurologic: awake; not confused Results & Data ([facility]) Vital Signs (Past 12 Hours) Vital Signs Temp Pulse Pulse Resp BP Pulse Ox 08/06/21 07:06 89 08/06/21 04:10 36.4 C L 95 H 24 117/48 L 97 08/05/21 23:37 36.4 C L 88 20 99/42 L 94 08/05/21 22:27 96 H 08/05/21 19:54 36.5 C 91 H 20 90/45 L 94 Laboratory Results Laboratory Tests 08/06/21 08/06/21 03:53 03:53 WBC 10.20 Hgb 11.0 L Hct 35.0 L Plt Count 201 Sodium 137 Potassium 3.8 Chloride 104 Carbon Dioxide 23 BUN 32 H Creatinine 4.64 H* D Glucose 112 H Calcium 8.0 L PG Care Time/CCT Total # of Minutes Spent Total Time Spent with Patient: Total time spent is greater than 50% in coordination of care (as documented) at patient's floor/unit and/or counseling patient: Coding Level of Care Code 69755 Subseq Hosp Care Lvl 3 Diagnoses End-stage renal disease on hemodialysis N18.6; Z99.2 Hypotension I95.9 Upper GI bleed K92.2 Anemia D64.9 Edema of left upper arm R60.0
[2021-08-06] MEDS: CLOPIDOGREL BISULFATE 75 MG TAB PO SCH (08:38)
[2021-08-06] MEDS: PANTOprazole 40 MG TAB PO SCH ×2 (08:39→21:18)
--- NOTE | 2021-08-06 10:42 | Hospitalist Progress Note ---
Date of Service August 06, 2021 Assessment & Plan (1) Upper GI bleed: Plan: -Stable/[facility], initially placed in icu due to concern for hypovolemic shock Currently on midodrine 2.5 mg 3 times daily, with 10 mg before dialysis, did not require IV vasopressors Tolerating advanced diet Protonix po bid -2 units transfused with repeat H&H appropriate rise. Hemoglobin is remained stable since GI consulted. Following for clinical stability, no plans for endoscopy at this time. Patient is high risk for intervention. Eliquis, held for bleeding. -Plavix restarted 08/02/21 (2) Coronary disease: Plan: History of CAD HORACE to LAD and D1 07/2015 History of 70-79% stenosis of right ICA 07/30/2021 TTE: Normal LV SF, EF 55-60%, no wall motion abnormalities. Moderate right ventricular dilation with moderately reduced systolic function. Moderate biatrial dilation. Mild mitral regurg. Severe tricuspid regurg. RVSP 54 mmHg. Small pericardial effusion without evidence of tamponade. 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 Known coronary disease, High-sensitivity troponin, peaked at 745, downtrending, absence of EKG changes, suspect demand ischemia -on atorvastatin for cardiovascular risk reduction (3) End-stage renal disease on hemodialysis: Plan: prehospital dialysis does not have mature fistulae uses catheter (4) Chronic cough: Plan: Chronic cough nonproductive with dyspnea on exertion, and history of dysphagia has failed previous interventions. Patient's cough does resolve at night, was suspicious for neurogenic/habitualtic cough/psychogenic. Returns daytime at bedside. - no need for additional speech intervention with some confusion stopping tessalon, no worsened cough (5) Ulcer of left heel: Plan: unstageable followed by wound care. Orthopedic consult *Pressure ulcer of medial coccyx region, unstageable, POA -keflex discontinued (6) Atrial flutter with rapid ventricular response: Plan: History of p atrial flutter with RVR, on Eliquis 2.5 mg p.o. 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 - Plan: pt will need snf placement in a dialysis accommodating facility Admission and Anticipated Discharge Date Admission Date: July 29, 2021 Subjective Patient remains pleasantly confused she is lying mostly flat and remains without increased work of breathing. She does have persistent chronic arterial insufficiency changes to her lower extremities with her ulceration present on her left Achilles however is not painful or draining at this point time Review of Systems Review of Systems: Mild distress and fatigue, maybe slightly seems to be at baseline with memory loss no headache, no visual changes no speech or swallowing issues no chest pain, pressure or palpitations improved shortness of breath no abdominal pain, nausea or vomiting, diarrhea or constipation no dysuria, hematuria or frequency no focal joint pain does have open areas on achilles and buttock no back pain, CVA tenderness or radicular pain left foot is not painful, nor is sacrum no focal signs of weakness or numbness or altered sensation no complaints of anxiety or depression.. Physical Exam Physical Exam: The patient appeared well, no distress but mild confusion midodrine help her to tolerate dialysis 08/04/21 Vital signs as documented. Lungs are clear to auscultation and appear unlabored, diminished at bases Cardiac exam, Rhythm is regular.. No murmurs, rubs or gallops. Abdominal exam reveals normal bowel sounds, soft non tender, no masses dressing on LLE chronic changes of arterial insufficiency bilaterally Neurologic exam is alert and oriented x2, peripheral neuropathy Skin is with open areas to ankle and buttock. Psychologically is with more confusion today Results & Data Results & Data ([facility]) Vital Signs (Past 12 Hours) Vital Signs Temp Pulse Pulse Resp BP Pulse Ox 08/06/21 07:55 97.7 F 85 16 86/56 L 94 08/06/21 07:06 89 08/06/21 04:10 97.5 F L 95 H 24 117/48 L 97 08/05/21 23:37 97.5 F L 88 20 99/42 L 94 PG Care Time/CCT Total # of Minutes Spent Total Time Spent with Patient: Total time spent is greater than 50% in coordination of care (as documented) at patient's floor/unit and/or counseling patient: Coding Level of Care Code 55544 Subseq Hosp Care Lvl 1 Diagnoses Upper GI bleed K92.2 Coronary disease I25.10 End-stage renal disease on hemodialysis N18.6; Z99.2 Chronic cough R05 Ulcer of left heel L97.429 Atrial flutter with rapid ventricular response I48.92 Confusion and disorientation R41.0 Diabetes E11.9
--- NOTE | 2021-08-06 18:38 | Ultrasound Report ---
LEFT LOWER EXTREMITY ARTERIAL DOPPLER ULTRASOUND CLINICAL HISTORY: Left lower extremity ulcer. COMPARISON STUDY: Bilateral lower extremity arterial Doppler ultrasound November 01, 2014. TECHNIQUE: Bilateral ankle to brachial indices were obtained. Grayscale, color and duplex Doppler son ography of the arterial system of the left lower extremity was performed. FINDINGS: The right ankle-brachial index measured 0.80. The left ankle-brachial index measured 0.46. The left ankle to brachial index has significantly decreased since ultrasound of November 01, 2014. No e levated velocities are identified within the left lower extremity. There is biphasic flow within the left common femoral artery. There is dampened monophasic flow within the left superficial femoral, po pliteal, anterior tibial, posterior tibial, peroneal and dorsalis pedis vessels. Portions of the left posterior tibial artery may be occluded. IMPRESSION: 1. Significantly diminished left ankle to brachial index of 0.46. This suggest moderate to severe art erial disease within the left lower extremity. 2. Biphasic flow within the left common femoral artery. Monophasic flow throughout the remainder of t he left lower extremity. Possible occlusion within portions of the left posterior tibial artery with distal reconstitution. 3. No elevated velocities to suggest a hemodynamically significant stenosis. ACT 112: Negative or not required by law. Electronically signed by: Nash Ambriz M.D. 08/06/2021 6:35 PM
[2021-08-06] MEDS: DOCUSATE SODIUM 100 MG CAP PO SCH (21:17)
[2021-08-06] MEDS: FAMOTIDINE 20 MG TAB PO SCH (21:18)
[2021-08-06] MEDS: MELATONIN 3 MG TAB PO PRN (21:18)
[2021-08-06] MEDS: FLUTICASONE/VILANTEROL 200/25MCG 14 PUFFS/INHALER INH SCH (21:19)
[2021-08-06] MEDS: ATORVASTATIN 10 MG TAB PO SCH (22:21)
[2021-08-07 06:03] LABS: Hematocrit (blood only) 34.6 % (37-47); Hemoglobin 10.9 g/dL (12.0-16.0); Mean Corpuscular Hemoglobin 30.8 pg (25-34); Mean Corpuscular Hgb Conc 31.5 g/dL (32-36); Mean Corpuscular Volume 97.7 fL (80-100); Platelet Count 219 K/uL (130-400); RDW Coefficient of Variation 19.2 % (11.5-14.5); RDW Standard Deviation 68.3 fL (36.4-46.3); Red Blood Count 3.54 M/uL (4.2-5.4); White Blood Count 10.67 K/uL (4.8-10.8)
[2021-08-07] MEDS: LEVOTHYROXINE SODIUM 150 MCG TABLET PO SCH (06:22)
[2021-08-07 06:34] LABS: BUN Creatinine Ratio 6.9 (10-20); Creatinine Clr Calc Pharmacy 6.9 ml/min; Est GFR (African American) 6.9 ml/min; Est GFR (Non-African American) 5.9 ml/min; Potassium 4.1 mmol/L (3.5-5.1)
[2021-08-07] MEDS ORDERED: SODIUM CHLORIDE 0.9% 1000ML 1,000 ML IV PRN (07:00)
[2021-08-07 07:31] LABS: Hepatitis BE Antibody Nonreactive; Hepatitis BE Antigen Nonreactive
--- NOTE | 2021-08-07 07:44 | Hospitalist Progress Note ---
Date of Service August 07, 2021 Assessment & Plan (1) Ulcer of left heel: Plan: unstageable followed by wound care. Orthopedic consult did not feel needed surgical attention -doppler of leg shows possible posterior tibial occlusion but with reconstitution to distal, will have vascular opinion *Pressure ulcer of medial coccyx region, unstageable, POA -keflex discontinued, vascular study shows, Significantly diminished left ankle to brachial index of 0.46. This suggest moderate to severe arterial disease within the left lower extremity. 2. Biphasic flow within the left common femoral artery. Monophasic flow throughout the remainder of the left lower extremity. Possible occlusion within portions of the left posterior tibial artery with distal reconstitution. discussed with Dr Minaya who will evaluate to see if amenable to intervention (2) Upper GI bleed: Plan: -Stable/[facility], initially placed in icu due to concern for hypovolemic shock Currently on midodrine 2.5 mg 3 times daily, with 10 mg before dialysis, did not require IV vasopressors Tolerating advanced diet Protonix po bid -2 units transfused with repeat H&H appropriate rise. Hemoglobin is remained stable since GI consulted. Following for clinical stability, no plans for endoscopy at this time. Patient is high risk for intervention. Eliquis, held for bleeding. -Plavix restarted 08/02/21 (3) Coronary disease: Plan: History of CAD HORACE to LAD and D1 07/2015 History of 70-79% stenosis of right ICA 07/30/2021 TTE: Normal LV SF, EF 55-60%, no wall motion abnormalities. Moderate right ventricular dilation with moderately reduced systolic function. Moderate biatrial dilation. Mild mitral regurg. Severe tricuspid regurg. RVSP 54 mmHg. Small pericardial effusion without evidence of tamponade. 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 Known coronary disease, High-sensitivity troponin, peaked at 745, downtrending, absence of EKG changes, suspect demand ischemia -on atorvastatin for cardiovascular risk reduction (4) End-stage renal disease on hemodialysis: Plan: prehospital dialysis does not have mature fistulae uses catheter (5) Chronic cough: Plan: Chronic cough nonproductive with dyspnea on exertion, and history of dysphagia has failed previous interventions. Patient's cough does resolve at night, was suspicious for neurogenic/habitualtic cough/psychogenic. Returns daytime at bedside. - no need for additional speech intervention with some confusion stopping tessalon, no worsened cough (6) Atrial flutter with rapid ventricular response: Plan: History of paroxysmal atrial flutter with RVR, on Eliquis 2.5 mg p.o. twice daily held on admission for acute bleeding and requirement of tranfusion Adequate rate control, sinus on admit (7) Confusion and disorientation: Plan: metabolic encephalopathy due to acute hypotension with GI bleed on admission negative metabolic work up, maybe progression of dementia, does have microvascular changes on CT head so maybe MID (8) Diabetes: Plan: Insulin requiring with good outpt control A1C 5.5 Basal/bolus SSI and adequate glycemic control today. - Plan: pt will need snf placement in a dialysis accommodating facility Admission and Anticipated Discharge Date Admission Date: July 29, 2021 Subjective pt remains pleasantly confused still has some sundowning behavior Review of Systems Review of Systems: Mild distress and fatigue, maybe slightly seems to be at baseline with memory loss no headache, no visual changes no speech or swallowing issues no chest pain, pressure or palpitations improved shortness of breath no abdominal pain, nausea or vomiting, diarrhea or constipation no dysuria, hematuria or frequency no focal joint pain does have open areas on achilles and buttock no back pain, CVA tenderness or radicular pain left foot is not painful, nor is sacrum no focal signs of weakness or numbness or altered sensation no complaints of anxiety or depression.. Physical Exam Physical Exam: The patient appeared well, no distress but mild confusion midodrine help her to tolerate dialysis 08/04/21 Vital signs as documented. Lungs are clear to auscultation and appear unlabored, diminished at bases Cardiac exam, Rhythm is regular.. No murmurs, rubs or gallops. Abdominal exam reveals normal bowel sounds, soft non tender, no masses dressing on LLE chronic changes of arterial insufficiency bilaterally Neurologic exam is alert and oriented x2, peripheral neuropathy Skin is with open areas to ankle and buttock. Psychologically is with more confusion today Results & Data Results & Data ([facility]) Vital Signs (Past 12 Hours) Vital Signs Temp Pulse Resp BP Pulse Ox 08/07/21 07:15 98.2 F 80 18 98/44 L 99 08/07/21 03:34 97.7 F 93 H 18 107/47 L 97 08/06/21 22:29 97.7 F 87 22 111/63 100 PG Care Time/CCT Total # of Minutes Spent Total Time Spent with Patient: Total time spent is greater than 50% in coordination of care (as documented) at patient's floor/unit and/or counseling patient: Coding Level of Care Code 66710 Subseq Hosp Care Lvl 2 Diagnoses Upper GI bleed K92.2 Coronary disease I25.10 End-stage renal disease on hemodialysis N18.6; Z99.2 Chronic cough R05 Ulcer of left heel L97.429 Atrial flutter with rapid ventricular response I48.92 Confusion and disorientation R41.0 Diabetes E11.9
[2021-08-07] MEDS: INSULIN ASPART PER UNIT SC SCH ×4 (08:01→20:02)
--- NOTE | 2021-08-07 08:37 | Nephrology Progress Note ---
Date of Service August 07, 2021 Assessment & Plan (1) End-stage renal disease on hemodialysis: Plan: * ESKD on HD MWF at [facility] (4 hrs, 180 optiflux, Qb 400 Qd 800, 3 K bath. EDW 82.5 kg) * EDW has been reduced to 74 kg this hospitalization. Patient now appears cli nically euvolemic to volume contracted. Cough has improved * HD today. Will only attempt 0.5L UF as patient is euvolemic * Will attempt to use AVF w/ HD today (2) Hypotension: Plan: * BP today is acceptable. Will monitor. Midodrine has been stopped (3) Upper GI bleed: Plan: * H/H stable. No endoscopic evaluation completed due to high risk and clinical improvement with supportive care (4) Anemia: Plan: * 2 units PRBC support provided 07/30. 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 Duplex negative for DVT. Admission and Anticipated Discharge Date Admission Date: July 29, 2021 Subjective Ms. Narvaez was evaluated in her hospital room this morning. She was breathing comfortably flat in bed while on O2 at 3L/min NC and had no cough. Ms. Narvaez was oriented to self and place only. She voiced no new medical concerns. Review of Systems Constitutional: + weakness Eyes: no problem reported Respiratory: no dyspnea Cardiovascular: no chest pain, no palpitations and no edema Gastrointestinal: no abdominal pain, no nausea, no vomiting and no diarrhea/loose stools Genitourinary: no dysuria and no hematuria Neurologic: no confusion Physical Exam Constitutional: + frail appearing; not in distress Eyes: PERRL, conjunctivae normal, anicteric sclerae ENMT: external ear and nose normal, oropharynx normal Mouth: + dry oral mucous membranes Neck: trachea midline, no thyromegaly Respiratory: normal respiratory effort, lungs clear to auscultation Cardiovascular: RRR, no murmur, no edema Gastrointestinal (Abdomen): normal bowel sounds, soft, nontender, no hepatosplenomegaly Neurologic: awake; not confused Results & Data ([facility] [place]) Vital Signs (Past 12 Hours) Vital Signs Temp Pulse Resp BP Pulse Ox 08/07/21 07:15 36.8 C 80 18 98/44 L 99 08/07/21 03:34 36.5 C 93 H 18 107/47 L 97 08/06/21 22:29 36.5 C 87 22 111/63 100 Laboratory Results Laboratory Tests 08/07/21 08/07/21 05:35 05:35 WBC 10.67 Hgb 10.9 L Hct 34.6 L Plt Count 219 Sodium 137 Potassium 4.1 Chloride 103 Carbon Dioxide 24 BUN 41 H Creatinine 5.95 H* D Glucose 127 H Calcium 8.0 L PG Care Time/CCT Total # of Minutes Spent Total Time Spent with Patient: Total time spent is greater than 50% in coordination of care (as documented) at patient's floor/unit and/or counseling patient: Coding Diagnoses End-stage renal disease on hemodialysis N18.6; Z99.2 Hypotension I95.9 Upper GI bleed K92.2 Anemia D64.9 Edema of left upper arm R60.0
--- NOTE | 2021-08-07 11:00 | Pharmacy Report ---
Pharmacy Glycemic Sign Off Nt - Date of Service August 07, 2021 - Assessment & Plan ASSESSMENT: * Pharmacy consulted for glycemic management. * Stressors stable. * No changes to regimen x48 hours * Currently on low dose Lantus qAM, Novolog ACHS w moderate correction and loose CHO ratio. * BSG's have ranged 95-154 mg/dL. * Pharmacy signing off at this time - confirmed w Dr. Romero PLAN FOR INPATIENT GLYCEMIC CONTROL: No changes needed to current regimen. * Continue basal insulin with Lantus 10 units SQ daily * Continue NovoLog per scale ACHS/Q6hrs while NPO * Goal range = 110 140 mg/dl * CF = 25 mg/dl/unit * CR = 1 unit for ever 20 g CHO consumed * Pharmacy is signing off of glycemic consult and will no longer be making adjustments to inpatient regimen. Please feel free to re-consult if needed. Thank you.
[2021-08-07] MEDS: INSULIN GLARGINE SOLOSTAR 100 UNITS/ML 3 ML PEN SC SCH (13:30)
[2021-08-07] MEDS: CLOPIDOGREL BISULFATE 75 MG TAB PO SCH (13:53)
[2021-08-07] MEDS: PANTOprazole 40 MG TAB PO SCH ×2 (13:53→20:03)
--- NOTE | 2021-08-07 16:48 | Vascular Medicine Consultation ---
Date of Consultation August 07, 2021 Assessment & Plan (1) PAD (peripheral artery disease): 2. Left lower extremity ulceration 3. End-stage renal disease on dialysis 4. Type 2 diabetes 5. Atrial flutter previously on anticoagulation, now just clopidogrel 6. Coronary artery disease post prior PCI Patient with high-risk wound and severe arterial insufficiency by noninvasive vascular testing. Arterial duplex suggestive of severe tibial disease most notably in BORE MILL OPERATOR FOR PLASTIC impacting direct flow to her ulcer bed. In that setting do feel potential benefit from revascularization if possible. Discussed risk, benefits, alternatives of bilateral lower extremity angiogram with patient and her son Carlos Narvaez. He is in favor of proceeding. Procedure to be scheduled sometime this week and coordinated with dialysis. History of Present Illness Attending Physician: Vincent Romero MD History of Present Illness Mrs. Mcfarlane is a very pleasant 86-year-old woman with end-stage renal disease on dialysis, type 2 diabetes seen today due to left lower extremity ulcer in the setting of PAD. She is followed by Dr. Tipton for her cardiac care. Her prior history includes coronary artery disease post prior PCI with stenting to LAD, paroxysmal atrial fibrillation, chronic diastolic heart failure. Recent CT scans concerning for metastatic lesions of lungs, abdomen, pelvis. She was admitted on 07/29/2021 with confusion, hypotension and initial concern for GI bleed. In that setting she had a mildly elevated troponin thought secondary to demand ischemia. Repeat echocardiogram showed EF of 55 to 60% with no new regional wall motion abnormalities, moderately dilated RV with moderate dysfunction, moderate pulmonary hypertension. Progressive decline over the last 5 months or so. Previously ambulatory with walker, now mostly wheelchair dependent. Patienthajennie had a longstanding ulceration over her left Achilles tendon which has been present for months and without preceding trauma. Limited improvement with standard wound care as an outpatient. Seen by orthopedics, Dr. Hernandez early in her hospitalization. No role for surgical debridement. Underwent venous duplex which was negative for DVT. Arterial duplex noteworthy for right THELMA 0.8, left THELMA 0.46 (PT 0.2). Biphasic left WOUND CARE TECHNICIAN waveforms, monophasic downstream. Suspected left BORE MILL OPERATOR FOR PLASTIC occlusion with distal reconstitution. Allergies Allergy/AdvReac Type Severity Reaction Status Date / Time cat dander Allergy Intermediate itching Verified 07/29/21 19:50 eyes, blisters pseudoephedrine AdvReac Intermediate Hallucinati Verified 07/29/21 19:50 ons hydroxyzine AdvReac Mild hallucinati Verified 07/29/21 19:50 ons Home Medications Medication Instructions Recorded Confirmed Type albuterol sulfate 1.25 mg/3 mL 1.25 mg INH Q6H PRN #90 ml 12/02/17 07/29/21 Rx solution for nebulization clopidogrel 75 mg tablet (Plavix) 75 mg PO QAM #90 tab 12/11/18 07/29/21 History fluticasone 232 mcg-salmeterol 14 1 puffs INHALATION QPM #1 ea 12/11/18 07/29/21 History mcg/actuation breath activated powdr (AirDuo RespiClick) albuterol sulfate 90 mcg/actuation 2 puffs INHALATION Q4H PRN #1 gm 02/18/19 07/29/21 History aerosol inhaler coenzyme Q10 100 mg capsule 100 mg PO QAM cap 02/18/19 07/29/21 History denosumab 120 mg/1.7 mL (70 mg/mL) 120 mg SUBCUT MONTHLY ml 02/18/19 07/29/21 History subcutaneous solution (Xgeva) docusate sodium 100 mg capsule 100 mg PO HS cap 02/18/19 07/29/21 History exemestane 25 mg tablet (Aromasin) 25 mg PO QAM tab 02/18/19 07/29/21 History isosorbide mononitrate 120 mg 120 mg PO QAM #90 tab 02/18/19 07/29/21 History tablet,extended release 24 hr nitroglycerin 0.4 mg sublingual 0.4 mg SL Q5M PRN #25 tab 02/18/19 07/29/21 History tablet pantoprazole 40 mg tablet,delayed 40 mg PO QAM 02/10/20 07/29/21 History release levothyroxine 150 mcg tablet 150 mcg PO QAM 08/23/20 07/29/21 History pramipexole 0.25 mg tablet 0.25 mg PO HS 08/23/20 07/29/21 History (Mirapex) febuxostat 40 mg tablet 40 mg PO QAM 10/05/20 07/29/21 History famotidine 20 mg tablet (Acid 2 mg PO QPM tab 07/06/21 07/29/21 History Director Bioinformatics (famotidine)) apixaban 2.5 mg tablet (Eliquis) 2.5 mg PO BID 07/29/21 07/29/21 History atorvastatin 10 mg tablet 10 mg PO HS 07/29/21 07/29/21 History benzonatate 100 mg capsule 100 mg PO TID PRN 07/29/21 07/29/21 History bumetanide 2 mg tablet 2 mg PO QAM 07/29/21 07/29/21 History colchicine 0.6 mg tablet 0.6 mg PO BID PRN 07/29/21 07/29/21 History insulin glargine 100 unit/mL (3 25 unit SUBCUT DAILY 07/29/21 07/29/21 History mL) subcutaneous pen (Lantus Solostar U-100 Insulin) melatonin 10 mg capsule 10 mg PO HS PRN 07/29/21 07/29/21 History Patient History Medical History Aspiration, chronic pulmonary Following with ENT and GI, 07/2020 hospitalization for PNA following EGD s uspected aspiration Asthma Controlled per pt, rescue inhaler use last several mos ago Atrial fibrillation Dx 2016-on anticoagulation-follow with [facility] Breast cancer 2005- left mastectomy+ chemo and XRT with recurrence of breast CA to RT 4th & 5th ribs (oral/injectable medication) Left upper extremity restriction per pt CAD (coronary artery disease) 2 stents-LAD and D1 HORACE, July 2015. Follows with [facility]. Carotid artery stenosis, asymptomatic 70-79% stenosis of right ICA per 01/2020 carotid doppler Chronic anticoagulation Chronic diastolic (congestive) heart failure Follows with [facility], stable per note and pt-chronically sleeps in recliner Diabetes mellitus IDDM, controlled and stable per pt Dysphagia Occasional dysphagia and coughing with swallowing pills, improved without clear cause per pt. Pt denies re-visiting recommended EGD-following with PCP End stage renal disease End-stage renal disease on hemodialysis Fistula Right arm not using at present and needs further surgery GERD (gastroesophageal reflux disease) Controlled, stable per pt Hemodialysis patient Dialysis M,W,F- [place] Using temporary cath in left shoulder Hyperlipidemia Hypertension Controlled, stable per pt Hypothyroidism Port-A-Cath in place Rt chest Pulmonary hypertension Mild per 05/04/21 ECHO- RVSP 39mmHg; follows with [facility] Rib lesion Bony metastasis per bone scan, pt states is on oral and injectable tx and following with PCP Sleep apnea No current device use Urinary leakage Surgical History History of appendectomy History of breast biopsy History of cardiac cath 2017 -2 stents-follows with [facility] History of carpal tunnel release of both wrists History of colonoscopy History of heart artery stent X 2 (2017) History of left mastectomy pt reports LUE restriction History of tonsillectomy and adenoidectomy History of total abdominal hysterectomy and bilateral salpingo-oophorectomy Family History Father Myocardial infarction Heart disease Mother Hypertension Other No family history of adverse response to anesthesia No family history of bleeding disorder Social History Smoking Status: Never smoker Second Hand Exposure: No; Hx Alcohol Use: No Hx Substance Use: No Preferred Language: Yi Communication Ability: Effective Bonded Strand Operator Required: No Beliefs That Will Affect Care: None marital status: / Current Living Situation: Alone Current Living Situation Comment: FAMILY COMES MULTIPLE TIMES PER DAY current occupational status: retired 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 How many Children do You have: 3 How many Children do You have Comment: 4 sons - one suffered a broken neck during wrestling practice, became quadraplegic and 6 years later Other Information That Helps Us Care for You: No other: One son is MD (family practice in [place]) Feels Safe at Home: Yes Safety Concerns: Feels Safe At This Time Assistive Devices: Cane and CPAP Review of Systems Review of Systems: All systems reviewed & are unremarkable except as noted in HPI & below Physical Exam Physical Exam: Seen in dialysis General: Comfortable HEENT: Sclerae anicteric Lungs: Clear to auscultation anteriorly. Dialysis catheter in place LUNGS: Breath sounds equal, no wheezes, rales, or rhonchi heard. No tachypnea or dyspnea. Cardiac: Regular with premature beats (telemetry reviewedatrial flutter), 2/6 holosystolic murmur at apex Vascular: 2+ radial bilaterally. Abdomen: Soft, nontender Extremities: Well perfused, no significant edema. 2+ right WOUND CARE TECHNICIAN, 1+ popliteal, 2+ DPA, diminished PT pulse. Left 1+ WOUND CARE TECHNICIAN, diminished popliteal, 1+ DP, nonpalpable PT. Normal capillary refill on the right. Normal capillary fill digits 1 through 3 on the left. Sluggish to digits 4 through 5 Psych: Alert orient, pleasant Woundapproximately 4 cm x 3 cm with dry base and eschar. No drainage or odor. Minimal surrounding erythema. Results & Data ([facility]) Vital Signs (Past 12 Hours) Vital Signs Temp Pulse Pulse Pulse Resp BP BP 08/07/21 15:37 97.9 F 87 20 119/43 L 08/07/21 13:03 97.7 F 83 166/70 H 08/07/21 12:20 76 134/64 08/07/21 11:40 94 H 138/65 08/07/21 11:20 94 H 155/65 H 08/07/21 11:00 94 H 130/63 08/07/21 10:40 91 H 127/62 08/07/21 10:20 92 H 127/57 L 08/07/21 10:00 92 H 132/61 08/07/21 09:40 98 H 120/52 L 08/07/21 09:20 80 125/58 L 08/07/21 09:00 85 126/58 L 08/07/21 08:38 84 117/60 08/07/21 08:28 97.7 F 84 08/07/21 07:15 98.2 F 80 18 98/44 L Pulse Ox 08/07/21 15:37 97 08/07/21 13:03 08/07/21 12:20 08/07/21 11:40 08/07/21 11:20 08/07/21 11:00 08/07/21 10:40 08/07/21 10:20 08/07/21 10:00 08/07/21 09:40 08/07/21 09:20 08/07/21 09:00 08/07/21 08:38 08/07/21 08:28 08/07/21 07:15 99 PG Care Time/CCT Total # of Minutes Spent Total Time Spent with Patient: Total time spent is greater than 50% in coordination of care (as documented) at patient's floor/unit and/or counseling patient: Coding Level of Care Code 32302 Initial Inpt Care Lvl 3 Diagnoses PAD (peripheral artery disease) I73.9
--- NOTE | 2021-08-07 18:10 | Ultrasound Report ---
LEFT UPPER EXTREMITY VENOUS DOPPLER HISTORY: Left arm swelling. eval for dvt from line or subclavian line COMPARISON STUDY: None. FINDINGS: The left internal jugular vein is patent. There is normal flow within the left subclavian v ein. There is normal flow and compressibility within the left axillary, basilic, brachial, radial, ul ihsan, and visualized cephalic veins. IMPRESSION: No DVT within the left upper extremity. ACT 112: Negative or not required by law. Electronically signed by: Lloyd Aaron M.D. 08/07/2021 6:08 PM
[2021-08-07] MEDS: ATORVASTATIN 10 MG TAB PO SCH (20:02)
[2021-08-07] MEDS: FAMOTIDINE 20 MG TAB PO SCH (20:03)
[2021-08-07] MEDS: FLUTICASONE/VILANTEROL 200/25MCG 14 PUFFS/INHALER INH SCH (20:03)
[2021-08-07] MEDS: DOCUSATE SODIUM 100 MG CAP PO SCH (20:05)
[2021-08-08] MEDS ORDERED: ACETAMINOPHEN 1,000 MG/100 ML VIAL IV STA (00:13)
[2021-08-08 06:07] LABS: Hematocrit (blood only) 35.3 % (37-47); Hemoglobin 10.9 g/dL (12.0-16.0); Mean Corpuscular Hemoglobin 30.3 pg (25-34); Mean Corpuscular Hgb Conc 30.9 g/dL (32-36); Mean Corpuscular Volume 98.1 fL (80-100); Platelet Count 198 K/uL (130-400); RDW Coefficient of Variation 19.5 % (11.5-14.5); RDW Standard Deviation 69.7 fL (36.4-46.3); White Blood Count 10.97 K/uL (4.8-10.8)
[2021-08-08 06:42] LABS: Calcium 7.7 mg/dl (8.5-10.1); Creatinine Clr Calc Pharmacy 9.6 ml/min; Est GFR (African American) 10.3 ml/min; Est GFR (Non-African American) 8.9 ml/min; Potassium 3.9 mmol/L (3.5-5.1)
[2021-08-08] MEDS: INSULIN GLARGINE SOLOSTAR 100 UNITS/ML 3 ML PEN SC SCH (08:31)
[2021-08-08] MEDS: INSULIN ASPART PER UNIT SC SCH ×4 (08:31→20:50)
--- NOTE | 2021-08-08 08:36 | Nephrology Progress Note ---
Date of Service August 08, 2021 Assessment & Plan (1) End-stage renal disease on hemodialysis: Plan: * ESKD on HD MWF at [facility] (4 hrs, 180 optiflux, Qb 400 Qd 800, 3 K bath. EDW 82.5 kg) * EDW has been reduced to 74 kg this hospitalization. Patient now appears cl inically euvolemic to volume contracted. Cough has improved * Will plan next HD for tomorrow using AVF (2) Hypotension: Plan: * BP today is acceptable. Will monitor. Midodrine has been stopped (3) Upper GI bleed: Plan: * H/H stable. No endoscopic evaluation completed due to high risk and clinical improvement with supportive care (4) Anemia: Plan: * 2 units PRBC support provided 07/30. Epogen 15569 units and Venofer 100 mg provided with HD 08/02 (5) Edema of left upper arm: Plan: * Lymphedema from mastectomy. Duplex negative for DVT. (6) PAD (peripheral artery disease): Plan: * Cardiology plans to perform LE arteriography. Will coordinate HD schedule w/ angiography Admission and Anticipated Discharge Date Admission Date: July 29, 2021 Subjective Ms. Narvaez was evaluated in her hospital room this morning. She was breathing comfortably flat in bed while on O2 at 1L/min NC and had no cough. Ms. Narvaez was oriented to self, place and month this morning. She was dialyzed yesterday using her AVF as access and had no complication. 0.5L UF obtained Review of Systems Constitutional: + weakness Eyes: no problem reported Respiratory: no dyspnea Cardiovascular: no chest pain, no palpitations and no edema Gastrointestinal: no abdominal pain, no nausea, no vomiting and no diarrhea/loose stools Genitourinary: no dysuria and no hematuria Neurologic: no confusion Physical Exam Constitutional: + frail appearing; not in distress Eyes: PERRL, conjunctivae normal, anicteric sclerae ENMT: external ear and nose normal, oropharynx normal Mouth: + dry oral mucous membranes Neck: trachea midline, no thyromegaly Respiratory: normal respiratory effort, lungs clear to auscultation Cardiovascular: RRR, no murmur, no edema Gastrointestinal (Abdomen): normal bowel sounds, soft, nontender, no hepatosplenomegaly Neurologic: awake; not confused Results & Data ([facility]) Vital Signs (Past 12 Hours) Vital Signs Temp Pulse Pulse Resp BP Pulse Ox 08/08/21 07:36 36.4 C L 84 20 121/66 98 08/08/21 03:27 36.6 C 81 24 99/52 L 96 08/08/21 00:00 103 H 08/07/21 23:16 38.1 C H 86 24 120/54 L 96 Laboratory Results Laboratory Tests 08/01/21 08/08/21 08/08/21 05:36 05:34 05:34 WBC 10.97 H Hgb 10.9 L Hct 35.3 L Plt Count 198 Sodium 138 Potassium 3.9 Chloride 105 Carbon Dioxide 26 BUN 30 H Creatinine 4.28 H D Glucose 110 H Calcium 7.7 L Albumin 2.9 L PG Care Time/CCT Total # of Minutes Spent Total Time Spent with Patient: Total time spent is greater than 50% in coordination of care (as documented) at patient's floor/unit and/or counseling patient: Coding Level of Care Code 42598 Subseq Hosp Care Lvl 3 Diagnoses End-stage renal disease on hemodialysis N18.6; Z99.2 Hypotension I95.9 Upper GI bleed K92.2 Anemia D64.9 Edema of left upper arm R60.0 PAD (peripheral artery disease) I73.9
[2021-08-08] MEDS: CLOPIDOGREL BISULFATE 75 MG TAB PO SCH (09:38)
[2021-08-08] MEDS: LEVOTHYROXINE SODIUM 150 MCG TABLET PO SCH (09:38)
[2021-08-08] MEDS: ATORVASTATIN 10 MG TAB PO SCH (09:38)
[2021-08-08] MEDS: PANTOprazole 40 MG TAB PO SCH ×2 (09:39→21:22)
[2021-08-08] MEDS: AMPICILLIN/SULBACTAM SOD 3,000 MG in 0.9 % SODIUM CHLORIDE 100 ML IV SCH (11:07)
[2021-08-08] MEDS: ADVANCED PROBIOTIC 1250 MG CAPSULE PO SCH (11:07)
--- NOTE | 2021-08-08 12:33 | Vascular Medicine ProgressNote ---
Date of Service August 08, 2021 Assessment & Plan (1) PAD (peripheral artery disease): Plan: 2. Left lower extremity ulceration 3. End-stage renal disease on dialysis 4. Type 2 diabetes 5. Atrial flutter previously on anticoagulation, now just clopidogrel 6. Coronary artery disease post prior PCI 7. Question of GI bleed No left lower extremity rest pain. No signs of infection. On schedule for bilateral lower extremity angiogram on Saturday morning. If plan for discharge sooner angiogram could be arranged as an outpatient. Admission and Anticipated Discharge Date Admission Date: July 29, 2021 Subjective No new concerns today. Denies any left leg pain. No chest pain or shortness of breath. Telemetry reviewedrate controlled atrial fibrillation Review of Systems Review of Systems: All systems reviewed & are unremarkable except as noted in HPI & below Physical Exam Physical Exam: General: Comfortable HEENT: Sclerae anicteric Lungs: Clear to auscultation anteriorly. . Cardiac: Irregular irregular, 2/6 holosystolic murmur at apex Vascular: 2+ radial bilaterally. Abdomen: Soft, nontender Extremities: Well perfused, no significant edema. -2+ right COCOA ROASTER, 1+ popliteal, 2+ DPA, diminished PT pulse. -Left 1+ COCOA ROASTER, diminished popliteal, 1+ DP, nonpalpable PT. Normal capillary refill on the right. Normal capillary fill digits 1 through 3 on the left. Sluggish to digits 4 through 5 Psych: Alert orient, pleasant Wounddressed without surrounding erythema. Results & Data ([facility]) Vital Signs (Past 12 Hours) Vital Signs Temp Pulse Resp BP Pulse Ox 08/08/21 11:31 97.5 F L 84 20 146/65 H 97 08/08/21 07:36 97.5 F L 84 20 121/66 98 08/08/21 03:27 97.9 F 81 24 99/52 L 96 PG Care Time/CCT Total # of Minutes Spent Total Time Spent with Patient: Total time spent is greater than 50% in coordination of care (as documented) at patient's floor/unit and/or counseling patient: Coding Level of Care Code 55299 Subseq Hosp Care Lvl 2 Diagnoses PAD (peripheral artery disease) I73.9
--- NOTE | 2021-08-08 14:26 | Hospitalist Progress Note ---
Date of Service August 08, 2021 Assessment & Plan (1) Ulcer of left heel: Plan: Achilles region. Recent culture with MSSA. Previously on keflex now off antibiotics. She had a low-grade fever overnight and her WBC count has risen modestly. Wound photos show some progression of the ulcer with purulent debris. Will reculture the ulcer, and start Unasyn IV which will cover the previous MSSA. Follow the new culture. Recent arterial duplex study suggests CLASSIFICATION OFFICER occlusion. Dr Minaya from cardiology/vascular has seen and plans on arteriogram this Saturday am. Continue plavix. Continue lipitor. (2) Upper GI bleed: Plan: Suspected, at time of admission. Required 2 units PRBCs for lowest Hb of 7.9. H/H stable since then. Seen by [facility] GI - endoscopy deferred. Remains on protonix BID. Eliquis remains on hold. Plavix restarted 08/02/21. (3) Coronary disease: Plan: HORACE to LAD and D1 07/2015. 07/30/2021 echo: Normal LV SF, EF 55-60%, no wall motion abnormalities. Continue Plavix 75 mg every morning and atorvastatin 10 mg daily. Imdur on hold. Is not on beta karsten. High-sensitivity troponin peaked at 745 -- this was likely 2nd to myocardial demand ischemia rather than ACS. (4) End-stage renal disease on hemodialysis: Plan: Appreciate [facility] Nephrology assistance for HD needs. Schedule M/W/. (5) Chronic cough: Plan: Present for 2+ years. Has seen pulmonary, ENT and GI for such. Is not on TANVIR or ARB. Previous laryngoscopy in 2020 with supraglottic secretions - aspiration? reflux? post-nasal drip? Some concern of neurogenic cough vs irritative larynx syndrome vs other (cough worse when talking). Previous PFTs with NO obstruction - moderate restriction. Trial of atrovent HFA 2 puffs qid. Trial of nasocort to both nares daily. Tessalon 200mg TID. Repeat a cxr to ensure no new infiltrates. (6) Atrial flutter with rapid ventricular response: Plan: a.fib/flutter. Not on AV parish agents. Recent Eliquis use now on hold due to concern of #2. Continue telemetry. (7) Confusion and disorientation: Plan: Acute metabolic encephalopathy in setting of underlying dementia/cognitive impairment? Cont supportive care. (8) Diabetes: Plan: Hba1C 5.5% Cont lantus 10 units daily Cont novolog SSI (9) Aspiration, chronic pulmonary: Plan: per records. multiple swallow evals in the past by speech therapy. consider repeat evaluation. (10) Breast cancer: Plan: noted. with mets to ribs based on imaging 04/2021. (11) Dysphagia: Plan: see #9 above (12) Hypothyroidism: Plan: TSH 06/2021 ~20. compliance outside the hospital? Since compliance may have been an issue will leave levothyroxine dose at 150mcg/day and recheck TSH in 4-6 weeks. (13) PAD (peripheral artery disease): Plan: See #1 above. Concern for PAD of LLE. Plan: spoke with pt's [id number] by phone this evening will attempt to contact pt's other son tomorrow Admission and Anticipated Discharge Date Admission Date: July 29, 2021 Subjective no events overnight although did have temp of 38.1 late last pm tele - a.fib, rates <100 during the visit she was awake and had a constant, dry cough this would take her breath away and her voice was raspy/hoarse when coughing she states "it's been like this for 2 years" and asks if she can have something for it some confusion noted appetite fair per staff Review of Systems Review of Systems: gen - fatigue cv - no chest pain pulm - cough - dry, no sputum; denied dyspnea GI - no abd pain Physical Exam Physical Exam: gen - coughing constantly, mildly confused; no distress neck - no JVD mouth - MMM; posterior throat without erythema or exudate heart - irregular, s1 s2 lungs - minimal rales b/l bases, no wheeze; no stridor; no increased work of breathing but constantly coughing abd - soft NT ND BS+ ext - no edema, pulses 2+ b/l skin - left achilles region - linear ulceration with yellow exudate, mild warmth at periphery of wound, and mild erythema vascular - left tunneled IJ dialysis catheter clean; right a-port clean Results & Data Results & Data ([facility]) Vital Signs (Past 12 Hours) Vital Signs Temp Pulse Resp BP Pulse Ox 08/08/21 11:31 36.4 C L 84 20 146/65 H 97 08/08/21 07:36 36.4 C L 84 20 121/66 98 08/08/21 03:27 36.6 C 81 24 99/52 L 96 Laboratory Results Laboratory Results - last 24 hr 08/07/21 08/08/21 08/08/21 19:56 05:34 05:34 WBC 10.97 H RBC 3.60 L Hgb 10.9 L Hct 35.3 L MCV 98.1 MCH 30.3 MCHC 30.9 L RDW Std Deviation 69.7 H RDW Coeff of Oj 19.5 H Plt Count 198 MPV 11.0 H Sodium 138 Potassium 3.9 Chloride 105 Carbon Dioxide 26 Anion Gap 7 BUN 30 H Creatinine 4.28 H D Est Cr Clr Drug Dosing 9.6 Est GFR ( Amer) 10.3 Est GFR (Non-Af Amer) 8.9 BUN/Creatinine Ratio 7.0 L Glucose 110 H POC Glucose 146 H Calcium 7.7 L 08/08/21 08/08/21 08/08/21 07:25 11:29 16:25 WBC RBC Hgb Hct MCV MCH MCHC RDW Std Deviation RDW Coeff of Oj Plt Count MPV Sodium Potassium Chloride Carbon Dioxide Anion Gap BUN Creatinine Est Cr Clr Drug Dosing Est GFR ( Amer) Est GFR (Non-Af Amer) BUN/Creatinine Ratio Glucose POC Glucose 99 153 H 147 H Calcium PG Care Time/CCT Total # of Minutes Spent Total Time Spent with Patient: Total time spent is greater than 50% in coordination of care (as documented) at patient's floor/unit and/or counseling patient: Coding Level of Care Code 98613 Subseq Hosp Care Lvl 3 Diagnoses Ulcer of left heel L97.429 Upper GI bleed K92.2 Coronary disease I25.10 End-stage renal disease on hemodialysis N18.6; Z99.2 Chronic cough R05 Atrial flutter with rapid ventricular response I48.92 Confusion and disorientation R41.0 Diabetes E11.9 Aspiration, chronic pulmonary T17.908A Encounter type: initial encounter Breast cancer C50.919 Dysphagia R13.10 Hypothyroidism E03.9 Hypothyroidism type: unspecified PAD (peripheral artery disease) I73.9 (1) Aspiration, chronic pulmonary Encounter type: initial encounter Qualified Code(s): T17.908A - Unspecified foreign body in respiratory tract, part unspecified causing other injury, initial encounter (2) Hypothyroidism Hypothyroidism type: unspecified Qualified Code(s): E03.9 - Hypothyroidism, unspecified
[2021-08-08] MEDS: IPRATROPIUM BROMIDE HFA INHALER INH SCH ×2 (15:20→19:37)
[2021-08-08] MEDS: BENZONATATE 100 MG CAPSULE PO SCH ×2 (15:26→21:22)
--- NOTE | 2021-08-08 16:51 | XRay Report ---
XR chest 1V portable HISTORY: severe cough; eval infiltrates COMPARISON: Chest 07/30/2021. FINDINGS: No pneumothorax. No pleural effusions. The heart remains enlarged. There is diffuse interst itial thickening with patchy hazy bilateral airspace opacities. This is similar to the prior study an d favors pulmonary edema. A viral pneumonitis could also have a similar appearance. Bilateral subclav buck catheters terminate at the SVC. There are low lung volumes. IMPRESSION: No change in the cardiomegaly, diffuse interstitial thickening, and hazy bilateral airspace opacities . This favors pulmonary edema. A superimposed viral pneumonia could also have a similar appearance. ACT 112: Negative or not required by law. Electronically signed by: Lloyd Aaron M.D. 08/08/2021 4:50 PM
[2021-08-08] MEDS: TRIAMCINOLONE ACET NASAL SPRAY 10.8ML BTL NAE SCH (17:01)
[2021-08-08] MEDS ORDERED: METOPROLOL TARTRATE 1 MG/ML VIAL IV STA (18:15)
[2021-08-08] MEDS ORDERED: HYDROCODONE/ACETAMOPHEN 5/325MG TAB PO PRN (18:28)
[2021-08-08] MEDS: DOCUSATE SODIUM 100 MG CAP PO SCH (21:22)
[2021-08-08] MEDS: FAMOTIDINE 20 MG TAB PO SCH (21:22)
[2021-08-08] MEDS: FLUTICASONE/VILANTEROL 200/25MCG 14 PUFFS/INHALER INH SCH (21:23)
[2021-08-09] MEDS: LEVOTHYROXINE SODIUM 150 MCG TABLET PO SCH (05:47)
[2021-08-09 05:57] LABS: Hematocrit (blood only) 34.3 % (37-47); Hemoglobin 10.9 g/dL (12.0-16.0); Mean Corpuscular Hgb Conc 31.8 g/dL (32-36); Mean Corpuscular Volume 97.4 fL (80-100); Mean Platelet Volume 10.6 fL (7.4-10.4); Platelet Count 199 K/uL (130-400); RDW Coefficient of Variation 18.5 % (11.5-14.5); Red Blood Count 3.52 M/uL (4.2-5.4); White Blood Count 11.32 K/uL (4.8-10.8)
[2021-08-09 06:29] LABS: BUN Creatinine Ratio 9.6 (10-20); Calcium 7.5 mg/dl (8.5-10.1); Creatinine Clr Calc Pharmacy 8.9 ml/min; Est GFR (African American) 9.2 ml/min; Est GFR (Non-African American) 7.9 ml/min; Potassium 4.1 mmol/L (3.5-5.1)
[2021-08-09] MEDS ORDERED: SODIUM CHLORIDE 0.9% 1000ML 1,000 ML IV PRN (07:00)
[2021-08-09] MEDS: IPRATROPIUM BROMIDE HFA INHALER INH SCH ×4 (07:11→19:24)
[2021-08-09] MEDS: BENZONATATE 100 MG CAPSULE PO SCH ×3 (07:59→20:52)
[2021-08-09] MEDS: INSULIN GLARGINE SOLOSTAR 100 UNITS/ML 3 ML PEN SC SCH (08:00)
[2021-08-09] MEDS: PANTOprazole 40 MG TAB PO SCH ×2 (08:00→20:51)
[2021-08-09] MEDS: CLOPIDOGREL BISULFATE 75 MG TAB PO SCH (08:00)
[2021-08-09] MEDS: ADVANCED PROBIOTIC 1250 MG CAPSULE PO SCH (08:00)
[2021-08-09] MEDS: TRIAMCINOLONE ACET NASAL SPRAY 10.8ML BTL NAE SCH (08:01)
[2021-08-09] MEDS: AMPICILLIN/SULBACTAM SOD 3,000 MG in 0.9 % SODIUM CHLORIDE 100 ML IV SCH (08:01)
[2021-08-09] MEDS: INSULIN ASPART PER UNIT SC SCH ×4 (08:07→20:51)
--- NOTE | 2021-08-09 08:42 | Nephrology Progress Note ---
Date of Service August 09, 2021 Assessment & Plan (1) End-stage renal disease on hemodialysis: Plan: * ESKD on HD MWF at [facility] (4 hrs, 180 optiflux, Qb 400 Qd 800, 3 K bath. EDW 82.5 kg) * EDW has been reduced to 74 kg this hospitalization. Patient now appears cl inically euvolemic to volume contracted. Cough has improved * HD today using AVF. No UF as patient appears volume contracted (2) Hypotension: Plan: * BP remains acceptable. Will monitor. * Patient tolerated HD 08/07/21 without Midodrine therapy. Continue to hold Midodrine (3) Anemia: Plan: * UGI bleed at time of hospitalization. H&H stabilized following blood transfusion. No endoscopic evaluation performed due to potential risks involved w/ procedure and improvement following supportive care * 2 units PRBC support provided 07/30. Epogen 83312 units and Venofer 100 mg provided with HD 08/02 (4) Edema of left upper arm: Plan: * Lymphedema from mastectomy. Duplex negative for DVT. (5) PAD (peripheral artery disease): Plan: * Ulcerative lesion L heel. 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 Will coordinate HD schedule w/ angiography Admission and Anticipated Discharge Date Admission Date: July 29, 2021 Subjective Ms. Narvaez was evaluated in her hospital room this morning. She was breathing comfortably flat in bed while on O2 at 1L/min NC and had no cough. Ms. Narvaez was oriented to self, place and month this morning. She had a dry cough when tr cami to speak Review of Systems Constitutional: + weakness Eyes: no problem reported Respiratory: no dyspnea Cardiovascular: no chest pain, no palpitations and no edema Gastrointestinal: no abdominal pain, no nausea, no vomiting and no diarrhea/loose stools Genitourinary: no dysuria and no hematuria Neurologic: no confusion Physical Exam Constitutional: + frail appearing; not in distress Eyes: PERRL, conjunctivae normal, anicteric sclerae ENMT: external ear and nose normal, oropharynx normal Mouth: + dry oral mucous membranes Neck: trachea midline, no thyromegaly Respiratory: normal respiratory effort, lungs clear to auscultation Cardiovascular: RRR, no murmur, no edema Gastrointestinal (Abdomen): normal bowel sounds, soft, nontender, no hepatosplenomegaly Neurologic: awake; not confused Results & Data ([facility]) Vital Signs (Past 12 Hours) Vital Signs Temp Pulse Pulse Resp BP BP Pulse Ox 08/09/21 07:38 89 08/09/21 07:27 36.4 C L 97 H 18 111/57 L 95 08/09/21 07:12 92 H 16 97 08/09/21 03:00 36.8 C 100 H 20 109/70 94 08/09/21 01:00 103 H 08/08/21 23:00 36.9 C 95 H 20 105/54 L 96 08/08/21 20:45 96 H 92/57 L Laboratory Results Laboratory Tests 08/09/21 08/09/21 05:43 05:43 WBC 11.32 H Hgb 10.9 L Hct 34.3 L Plt Count 199 Sodium 136 Potassium 4.1 Chloride 103 Carbon Dioxide 24 BUN 45 H Creatinine 4.69 H* D Glucose 79 Calcium 7.5 L PG Care Time/CCT Total # of Minutes Spent Total Time Spent with Patient: Total time spent is greater than 50% in coordination of care (as documented) at patient's floor/unit and/or counseling patient: Coding Level of Care Code 20408 Subseq Hosp Care Lvl 3 Diagnoses End-stage renal disease on hemodialysis N18.6; Z99.2 Hypotension I95.9 Anemia D64.9 Edema of left upper arm R60.0 PAD (peripheral artery disease) I73.9
--- NOTE | 2021-08-09 18:31 | Hospitalist Progress Note ---
Date of Service August 09, 2021 Assessment & Plan (1) Ulcer of left heel: Plan: Achilles region. 08/01/21 culture with MSSA. Previously on keflex, then Unasyn restarted on 08/08 due to low-grade fever & worsening appearance of the ulcer. Repeat culture from 08/08 thus far pending. Recent arterial duplex study suggests MICA PASTER occlusion. Dr Minaya from cardiology/vascular has seen and plans on arteriogram this Saturday am. Continue plavix. Continue lipitor. (2) Upper GI bleed: Plan: Suspected, at time of admission. Required 2 units PRBCs for lowest Hb of 7.9. H/H stable since then. Seen by [facility] - endoscopy deferred. Remains on protonix BID. Eliquis remains on hold. Can likely resume post-arteriogram. Plavix restarted 08/02/21. (3) Coronary disease: Plan: HORACE to LAD and D1 07/2015. 07/30/2021 echo: Normal LV SF, EF 55-60%, no wall motion abnormalities. Continue Plavix 75 mg every morning and atorvastatin 10 mg daily. Imdur on hold. High-sensitivity troponin peaked at 745 -- this was likely 2nd to myocardial demand ischemia rather than ACS. (4) End-stage renal disease on hemodialysis: Plan: Appreciate [facility] Nephrology assistance for HD needs. Schedule M//. (5) Chronic cough: Plan: Present for 2+ years. Has seen pulmonary, ENT and GI for such. Is not on TANVIR or ARB. Previous laryngoscopy in 2020 with supraglottic secretions - aspiration? r eflux? post-nasal drip? Some concern of neurogenic cough vs irritative larynx syndrome vs other (cough worse when talking). Previous PFTs with NO obstruction - moderate restriction. Cough perhaps a little better today. Cont atrovent HFA 2 puffs qid. Cont nasocort to both nares daily. Cont Tessalon 200mg TID. Cxr yesterday - maybe slight pulm edema - but dialysis occurred today. (6) Atrial flutter with rapid ventricular response: Plan: a.fib/flutter. rates were >100 much of the afternoon with patient at rest. add metoprolol 12.5mg BID. Recent Eliquis use now on hold due to concern of #2. Continue telemetry. (7) Confusion and disorientation: Plan: Acute metabolic encephalopathy in setting of underlying dementia/cognitive impairment? Cont supportive care. confusion IS improved per her friend at bedside today and her son whom I spoke with this evening. (8) Diabetes: Plan: Hba1C 5.5% Cont lantus 10 units daily Cont novolog SSI (9) Aspiration, chronic pulmonary: Plan: per records. multiple swallow evals in the past by speech therapy. consider repeat evaluation. (10) Breast cancer: Plan: noted. with mets to ribs based on imaging 04/2021. (11) Dysphagia: Plan: see #9 above (12) Hypothyroidism: Plan: TSH 06/2021 ~20. compliance outside the hospital? Since compliance may have been an issue will leave levothyroxine dose at 150mcg/day and recheck TSH in 4-6 weeks. (13) PAD (peripheral artery disease): Plan: See #1 above. Concern for PAD of LLE. Plan: spoke with pt's son, Dr Narvaez, who practices in [place] full update given plan of care discussed Admission and Anticipated Discharge Date Admission Date: July 29, 2021 Subjective tele overnight - a.fib, most rates <100 but some >100 even at rest pt had a visitor with her during the visit her friend stated that Ms Narvaez's mental status was much better today pt c/o mild left achilles region pain continues with cough but improved from yesterday no sputum no dyspnea eating fair underwent dialysis today without incident Review of Systems Review of Systems: gen - more awake/alert today than yesterday; she admits to feeling better with this cv - no orthopnea or cp pulm - no wheezing GI - no abd pain Physical Exam Physical Exam: gen - looks better today; less cough; more awake and alert neck - no JVD mouth - MMM heart - irregular, s1 s2, no murmur lungs - slight rales bases b/l abd - soft NT ND BS+ ext - no edema, pulses 2+ b/l skin - dressings intact L achilles region vascular - left tunneled IJ dialysis catheter clean; right a-port clean; right arm AV fistula Results & Data Results & Data ([facility]) Vital Signs (Past 12 Hours) Vital Signs Temp Pulse Pulse Pulse Resp BP BP 08/09/21 15:55 36.4 C L 101 H 20 116/65 08/09/21 15:24 87 18 08/09/21 15:13 104 H 08/09/21 13:50 36.8 C 83 135/90 08/09/21 13:20 83 120/62 08/09/21 13:00 91 H 124/72 08/09/21 12:40 78 116/62 08/09/21 12:20 90 126/60 08/09/21 12:00 89 122/63 08/09/21 11:40 92 H 116/85 08/09/21 11:20 92 H 145/68 H 08/09/21 11:00 92 H 129/67 08/09/21 10:40 75 156/67 H 08/09/21 10:20 94 H 129/68 08/09/21 10:00 95 H 131/67 08/09/21 09:43 36.5 C 88 08/09/21 07:38 89 08/09/21 07:27 36.4 C L 97 H 18 111/57 L 08/09/21 07:12 92 H 16 Pulse Ox 08/09/21 15:55 98 08/09/21 15:24 96 08/09/21 15:13 08/09/21 13:50 08/09/21 13:20 08/09/21 13:00 08/09/21 12:40 08/09/21 12:20 08/09/21 12:00 08/09/21 11:40 08/09/21 11:20 08/09/21 11:00 08/09/21 10:40 08/09/21 10:20 08/09/21 10:00 08/09/21 09:43 08/09/21 07:38 08/09/21 07:27 95 08/09/21 07:12 97 Laboratory Results Laboratory Results - last 24 hr 08/08/21 08/09/21 08/09/21 20:21 05:43 05:43 WBC 11.32 H RBC 3.52 L Hgb 10.9 L Hct 34.3 L MCV 97.4 MCH 31.0 MCHC 31.8 L RDW Std Deviation 66.0 H RDW Coeff of Oj 18.5 H Plt Count 199 MPV 10.6 H Sodium 136 Potassium 4.1 Chloride 103 Carbon Dioxide 24 Anion Gap 9 BUN 45 H Creatinine 4.69 H* D Est Cr Clr Drug Dosing 8.9 Est GFR ( Amer) 9.2 Est GFR (Non-Af Amer) 7.9 BUN/Creatinine Ratio 9.6 L Glucose 79 POC Glucose 98 Calcium 7.5 L 08/09/21 08/09/21 08/09/21 07:25 12:27 16:33 WBC RBC Hgb Hct MCV MCH MCHC RDW Std Deviation RDW Coeff of Oj Plt Count MPV Sodium Potassium Chloride Carbon Dioxide Anion Gap BUN Creatinine Est Cr Clr Drug Dosing Est GFR ( Amer) Est GFR (Non-Af Amer) BUN/Creatinine Ratio Glucose POC Glucose 85 124 H 108 H Calcium PG Care Time/CCT Total # of Minutes Spent Total Time Spent with Patient: Total time spent is greater than 50% in coordination of care (as documented) at patient's floor/unit and/or counseling patient: Coding Level of Care Code 96440 Subseq Hosp Care Lvl 2 Diagnoses Ulcer of left heel L97.429 Upper GI bleed K92.2 Coronary disease I25.10 End-stage renal disease on hemodialysis N18.6; Z99.2 Chronic cough R05 Atrial flutter with rapid ventricular response I48.92 Confusion and disorientation R41.0 Diabetes E11.9 Aspiration, chronic pulmonary T17.908A Encounter type: initial encounter Breast cancer C50.919 Dysphagia R13.10 Hypothyroidism E03.9 Hypothyroidism type: unspecified PAD (peripheral artery disease) I73.9 (1) Hypothyroidism Hypothyroidism type: unspecified Qualified Code(s): E03.9 - Hypothyroidism, unspecified (2) Aspiration, chronic pulmonary Encounter type: initial encounter Qualified Code(s): T17.908A - Unspecified foreign body in respiratory tract, part unspecified causing other injury, initial encounter
[2021-08-09] MEDS: ATORVASTATIN 10 MG TAB PO SCH (20:50)
[2021-08-09] MEDS: FAMOTIDINE 20 MG TAB PO SCH (20:50)
[2021-08-09] MEDS: METOPROLOL TARTRATE 25 MG TAB PO SCH (20:50)
[2021-08-09] MEDS: FLUTICASONE/VILANTEROL 200/25MCG 14 PUFFS/INHALER INH SCH (20:52)
[2021-08-09] MEDS: DOCUSATE SODIUM 100 MG CAP PO SCH (20:54)
[2021-08-10] MEDS: LEVOTHYROXINE SODIUM 150 MCG TABLET PO SCH (05:41)
[2021-08-10 06:27] LABS: BUN Creatinine Ratio 8.5 (10-20); Calcium 7.7 mg/dl (8.5-10.1); Creatinine Clr Calc Pharmacy 13.6 ml/min; Est GFR (African American) 15.4 ml/min; Est GFR (Non-African American) 13.3 ml/min
[2021-08-10] MEDS: IPRATROPIUM BROMIDE HFA INHALER INH SCH ×4 (07:05→19:30)
[2021-08-10] MEDS: INSULIN ASPART PER UNIT SC SCH ×4 (08:26→21:56)
[2021-08-10] MEDS: PANTOprazole 40 MG TAB PO SCH ×2 (08:29→20:16)
[2021-08-10] MEDS: METOPROLOL TARTRATE 25 MG TAB PO SCH ×2 (08:29→20:15)
[2021-08-10] MEDS: BENZONATATE 100 MG CAPSULE PO SCH ×3 (08:29→20:15)
[2021-08-10] MEDS: HEPARIN SOD 5,000 UNIT/0.5 ML VIAL SQ SCH ×2 (08:29→20:16)
[2021-08-10] MEDS: AMPICILLIN/SULBACTAM SOD 3,000 MG in 0.9 % SODIUM CHLORIDE 100 ML IV SCH (08:29)
[2021-08-10] MEDS: TRIAMCINOLONE ACET NASAL SPRAY 10.8ML BTL NAE SCH (08:30)
[2021-08-10] MEDS: CLOPIDOGREL BISULFATE 75 MG TAB PO SCH (08:30)
[2021-08-10] MEDS: INSULIN GLARGINE SOLOSTAR 100 UNITS/ML 3 ML PEN SC SCH (08:30)
[2021-08-10] MEDS: ADVANCED PROBIOTIC 1250 MG CAPSULE PO SCH (08:30)
--- NOTE | 2021-08-10 08:54 | Nephrology Progress Note ---
Date of Service August 10, 2021 Assessment & Plan (1) End-stage renal disease on hemodialysis: Plan: * ESKD on HD MWF at [facility] (4 hrs, 180 optiflux, Qb 400 Qd 800, 3 K bath. EDW 82.5 kg) * EDW has been reduced to 74 kg this hospitalization. Patient now appears cl inically euvolemic to volume contracted. Cough has improved * No acute indication for HD today. Will schedule heparin free HD for 08/11 and attempt to UF 1L. HD RN advised to use AVF as access and coordinate dialysis w/ Cardiology (2) Hypotension: Plan: * BP remains acceptable. Will monitor. * Patient tolerated HD 08/07 and 08/09/21 without Midodrine therapy. Continue to hold Midodrine (3) Anemia: Plan: * UGI bleed at time of hospitalization. H&H stabilized following blood transfusion. No endoscopic evaluation performed due to potential risks involved w/ procedure and improvement following supportive care * 2 units PRBC support provided 07/30. Epogen 35075 units and Venofer 100 mg provided with HD 08/02 (4) Edema of left upper arm: Plan: * Lymphedema from mastectomy. Duplex negative for DVT. (5) PAD (peripheral artery disease): Plan: * Ulcerative lesion L heel. 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 Will coordinate HD schedule w/ angiography Admission and Anticipated Discharge Date Admission Date: July 29, 2021 Subjective Ms. Narvaez was evaluated in her hospital room this morning. She was breathing comfortably sitting up in bed while on O2 at 2L/min NC. Ms. Narvaez was oriented to self and place only this morning. She had a dry cough when trying to speak Review of Systems Constitutional: + weakness Eyes: no problem reported Respiratory: no dyspnea Cardiovascular: no chest pain, no palpitations and no edema Gastrointestinal: no abdominal pain, no nausea, no vomiting and no diarrhea/loose stools Genitourinary: no dysuria and no hematuria Neurologic: no confusion Physical Exam Constitutional: + frail appearing; not in distress Eyes: PERRL, conjunctivae normal, anicteric sclerae ENMT: external ear and nose normal, oropharynx normal Mouth: + dry oral mucous membranes Neck: trachea midline, no thyromegaly Respiratory: normal respiratory effort, lungs clear to auscultation Cardiovascular: RRR, no murmur, no edema AVF + bruit Gastrointestinal (Abdomen): normal bowel sounds, soft, nontender, no hepatosplenomegaly Neurologic: awake; not confused Results & Data ([facility]) Vital Signs (Past 12 Hours) Vital Signs Temp Pulse Pulse Pulse Resp BP Pulse Ox 08/10/21 07:13 36.4 C L 80 18 118/56 L 95 08/10/21 07:06 87 16 98 08/10/21 03:53 76 08/10/21 03:15 36.8 C 85 28 H 120/53 L 95 08/09/21 23:19 36.4 C L 78 30 H 95/50 L 94 Laboratory Results Laboratory Tests 08/10/21 05:28 Sodium 138 Potassium 4.0 Chloride 105 Carbon Dioxide 27 BUN 26 H Creatinine 3.06 H D Glucose 78 Calcium 7.7 L PG Care Time/CCT Total # of Minutes Spent Total Time Spent with Patient: Total time spent is greater than 50% in coordination of care (as documented) at patient's floor/unit and/or counseling patient: Coding Level of Care Code 62299 Subseq Hosp Care Lvl 3 Diagnoses End-stage renal disease on hemodialysis N18.6; Z99.2 Hypotension I95.9 Anemia D64.9 Edema of left upper arm R60.0 PAD (peripheral artery disease) I73.9
[2021-08-10] MEDS: ALBUTEROL HFA 8 GM INHALER INH PRN (11:13)
--- NOTE | 2021-08-10 12:54 | Vascular Medicine ProgressNote ---
Date of Service August 10, 2021 Assessment & Plan (1) PAD (peripheral artery disease): Plan: 2. Left lower extremity ulceration 3. End-stage renal disease on dialysis 4. Type 2 diabetes 5. Atrial flutter previously on anticoagulation, now just clopidogrel 6. Coronary artery disease post prior PCI 7. Question of GI bleed No left lower extremity rest pain. Left lower extremity wound stable. On schedule for bilateral lower extremity angiogram tomorrow, probably around 10 AM. N.p.o. past midnight. Hold a.m. SQ heparin. Further recommendations pending findings. Admission and Anticipated Discharge Date Admission Date: July 29, 2021 Subjective Feeling well this morning. Denies shortness of breath or chest pain. No significant change in discomfort in left lower extremity. She had a dry cough when trying to speak Review of Systems Review of Systems: All systems reviewed & are unremarkable except as noted in HPI & below Physical Exam Physical Exam: General: Comfortable HEENT: Sclerae anicteric Lungs: Clear to auscultation anteriorly. Cardiac: Irregular irregular Vascular: 2+ radial bilaterally Extremities: Well perfused, no significant edema. Psych: Alert orient, pleasant Wounddressed without surrounding erythema. Results & Data ([facility]) Vital Signs (Past 12 Hours) Vital Signs Temp Pulse Pulse Pulse Resp BP Pulse Ox 08/10/21 11:13 80 18 99 08/10/21 11:03 97.5 F L 87 17 143/54 H 97 08/10/21 08:00 88 08/10/21 07:13 97.5 F L 80 18 118/56 L 95 08/10/21 07:06 87 16 98 08/10/21 03:53 76 08/10/21 03:15 98.2 F 85 28 H 120/53 L 95 PG Care Time/CCT Total # of Minutes Spent Total Time Spent with Patient: Total time spent is greater than 50% in coordination of care (as documented) at patient's floor/unit and/or counseling patient: Coding Level of Care Code 98582 Subseq Hosp Care Lvl 2 Diagnoses PAD (peripheral artery disease) I73.9
[2021-08-10] MEDS: FAMOTIDINE 20 MG TAB PO SCH (20:16)
[2021-08-10] MEDS: ATORVASTATIN 10 MG TAB PO SCH (20:16)
[2021-08-10] MEDS: DOCUSATE SODIUM 100 MG CAP PO SCH (20:18)
--- NOTE | 2021-08-10 20:21 | Hospitalist Progress Note ---
Date of Service August 10, 2021 Assessment & Plan (1) Ulcer of left heel: Plan: Achilles region. 08/01/21 culture with MSSA. Previously on keflex, then Unasyn restarted on 08/08 due to low-grade fever & worsening appearance of the ulcer. No further fever. Appearance of ulcer is moderately improved today. Repeat culture from 08/08 with staph - suspect it will be staph aureus as prior. Recent arterial duplex study suggests ANGLE FURNACEMAN occlusion. Dr Minaya from cardiology/vascular has seen and plans on arteriogram tomorrow. NPO after MN tonight for such. Continue plavix. Continue lipitor. Continue pain meds prn. Continue IV unasyn. (2) Upper GI bleed: Plan: Suspected, at time of admission. Required 2 units PRBCs for lowest Hb of 7.9. H/H stable since then. Seen by [facility] - endoscopy deferred. Remains on protonix BID. Eliquis remains on hold. Can likely resume post-arteriogram. Plavix restarted 08/02/21. Heparin SC for DVT proph added and tolerating such without any signs of GI bleeding. CBC am for stability. (3) Coronary disease: Plan: HORACE to LAD and D1 07/2015. 07/30/2021 echo: Normal LV SF, EF 55-60%, no wall motion abnormalities. Continue Plavix 75 mg every morning and atorvastatin 10 mg daily. Imdur on hold but can likely resume in the near-future. High-sensitivity troponin peaked at 745 -- this was likely 2nd to myocardial demand ischemia rather than ACS. (4) End-stage renal disease on hemodialysis: Plan: Appreciate [facility] Nephrology assistance for HD needs. Schedule M/W/F. (5) Chronic cough: Plan: Present for 2+ years. Has seen pulmonary, ENT and GI for such. Is not on TANVIR or ARB. Previous laryngoscopy in 2020 with supraglottic secretions - aspiration? reflux? post-nasal drip? Some concern of neurogenic cough vs irritative larynx syndrome vs other (cough worse when talking). Previous PFTs with NO obstruction - moderate restriction. Cough seems better with the below meds. Cont atrovent HFA 2 puffs qid. Cont nasocort to both nares daily. Cont Tessalon 200mg TID. (6) Atrial flutter with rapid ventricular response: Plan: a.fib/flutter. converted to NSR earlier today. cont metoprolol 12.5mg BID. Recent Eliquis use now on hold due to concern of #2 but suspect we can resume such following her arteriogram. Continue telemetry. (7) Confusion and disorientation: Plan: Acute metabolic encephalopathy in setting of underlying dementia/cognitive impairment. Mental status continues to wax/wane but more often than not her MS has been pretty good last few days. Cont supportive care. (8) Diabetes: Plan: Hba1C 5.5% Cont lantus 10 units daily Cont novolog SSI Controlled (9) Aspiration, chronic pulmonary: Plan: per records. multiple swallow evals in the past by speech therapy. no issues at this time. (10) Breast cancer: Plan: noted. with mets to ribs based on imaging 04/2021. (11) Dysphagia: Plan: see #9 above (12) Hypothyroidism: Plan: TSH 06/2021 ~20. compliance outside the hospital? Since compliance may have been an issue will leave levothyroxine dose at 150mcg/day and recheck TSH in 4-6 weeks. (13) PAD (peripheral artery disease): Plan: See above re: arteriogram tomorrow by Dr Minaya. Concern for PAD of LLE. Plan: spoke with pt's son, Dr Narvaez, who practices in [place] - 08/09/21 extensive update given Admission and Anticipated Discharge Date Admission Date: July 29, 2021 Subjective patient had a large, formed, brown stool just before my visit she stated her stomach was upset at lunch-time and didn't eat well but ate 100% of her breakfast per staff cough improved no dyspnea mild pain over L achilles region - largely unchanged converted from a.fib (rates were <100 overnight) to NSR early this afternoon Review of Systems Review of Systems: gen - no fever or chills cv - no orthopnea pulm - no sputum production GI - mild dyspepsia, but no vomiting; transient nausea earlier in the day Physical Exam Physical Exam: gen - alert, awake, oriented to year/day/place; minimal cough today neck - no JVD mouth - MMM heart - RRR, s1 s2, no murmur lungs - slight rales bases b/l - no changes abd - soft NT ND BS+; no HSM ext - no edema, pulses 2+ b/l skin - dressings removed from L achilles region - yellow drainage is moderately improved from prior exam (2 days ago); granulation tissue at periphery of ulcer; no cellulitis; mild black eschar material superior portion of ulcer; no odor vascular - left tunneled IJ dialysis catheter clean; right chest a-port clean Results & Data Results & Data ([facility]) Vital Signs (Past 12 Hours) Vital Signs Temp Pulse Pulse Pulse Resp BP Pulse Ox 08/10/21 19:30 83 93 08/10/21 19:26 36.4 C L 82 18 127/67 95 08/10/21 15:03 36.4 C L 75 16 109/38 L 95 08/10/21 14:59 76 20 97 08/10/21 11:13 80 18 99 08/10/21 11:03 36.4 C L 87 17 143/54 H 97 Laboratory Results Laboratory Results - last 24 hr 08/09/21 08/10/21 08/10/21 20:28 05:28 07:11 Sodium 138 Potassium 4.0 Chloride 105 Carbon Dioxide 27 Anion Gap 6 BUN 26 H Creatinine 3.06 H D Est Cr Clr Drug Dosing 13.6 Est GFR ( Amer) 15.4 Est GFR (Non-Af Amer) 13.3 BUN/Creatinine Ratio 8.5 L Glucose 78 POC Glucose 118 H 75 Calcium 7.7 L 08/10/21 08/10/21 11:21 16:06 Sodium Potassium Chloride Carbon Dioxide Anion Gap BUN Creatinine Est Cr Clr Drug Dosing Est GFR ( Amer) Est GFR (Non-Af Amer) BUN/Creatinine Ratio Glucose POC Glucose 113 H 127 H Calcium PG Care Time/CCT Total # of Minutes Spent Total Time Spent with Patient: Total time spent is greater than 50% in coordination of care (as documented) at patient's floor/unit and/or counseling patient: Coding Level of Care Code 21477 Subseq Hosp Care Lvl 2 Diagnoses Ulcer of left heel L97.429 Upper GI bleed K92.2 Coronary disease I25.10 End-stage renal disease on hemodialysis N18.6; Z99.2 Chronic cough R05 Atrial flutter with rapid ventricular response I48.92 Confusion and disorientation R41.0 Diabetes E11.9 Aspiration, chronic pulmonary T17.908A Encounter type: initial encounter Breast cancer C50.919 Dysphagia R13.10 Hypothyroidism E03.9 Hypothyroidism type: unspecified PAD (peripheral artery disease) I73.9 (1) Aspiration, chronic pulmonary Encounter type: initial encounter Qualified Code(s): T17.908A - Unspecified foreign body in respiratory tract, part unspecified causing other injury, initial encounter (2) Hypothyroidism Hypothyroidism type: unspecified Qualified Code(s): E03.9 - Hypothyroidism, unspecified
[2021-08-10] MEDS: FLUTICASONE/VILANTEROL 200/25MCG 14 PUFFS/INHALER INH SCH (22:00)
[2021-08-11] MEDS: LEVOTHYROXINE SODIUM 150 MCG TABLET PO SCH (06:32)
[2021-08-11] MEDS ORDERED: SODIUM CHLORIDE 0.9% 1000ML 1,000 ML IV PRN (07:00)
[2021-08-11] MEDS: IPRATROPIUM BROMIDE HFA INHALER INH SCH (07:15)
[2021-08-11 07:23] LABS: Hematocrit (blood only) 35.2 % (37-47); Hemoglobin 11.1 g/dL (12.0-16.0); Mean Corpuscular Hemoglobin 30.2 pg (25-34); Mean Corpuscular Hgb Conc 31.5 g/dL (32-36); Mean Corpuscular Volume 95.7 fL (80-100); Mean Platelet Volume 10.9 fL (7.4-10.4); Platelet Count 242 K/uL (130-400); RDW Standard Deviation 63.8 fL (36.4-46.3); Red Blood Count 3.68 M/uL (4.2-5.4); White Blood Count 10.31 K/uL (4.8-10.8)
[2021-08-11 07:46] LABS: BUN Creatinine Ratio 8.4 (10-20); Calcium 7.8 mg/dl (8.5-10.1); Creatinine Clr Calc Pharmacy 9.7 ml/min; Est GFR (African American) 10.2 ml/min; Est GFR (Non-African American) 8.8 ml/min
[2021-08-11] MEDS: INSULIN ASPART PER UNIT SC SCH ×4 (08:32→21:02)
--- NOTE | 2021-08-11 08:36 | Nephrology Progress Note ---
Date of Service August 11, 2021 Assessment & Plan (1) End-stage renal disease on hemodialysis: Plan: * ESKD on HD MWF at [facility] (4 hrs, 180 optiflux, Qb 400 Qd 800, 3 K bath. EDW 82.5 kg) * EDW has been reduced to 74 kg this hospitalization. Patient now appears cl inically euvolemic to volume contracted. Cough has improved * Will schedule heparin free HD for today following angiography and attempt 2L UF. Will use AVF as vascular access (2) Hypotension: Plan: * BP remains acceptable. Will monitor. * Patient tolerated HD 08/07 and 08/09/21 without Midodrine therapy. Continue to hold Midodrine (3) Anemia: Plan: * UGI bleed at time of hospitalization. H&H stabilized following blood transfusion. No endoscopic evaluation performed due to potential risks involved w/ procedure and improvement following supportive care * 2 units PRBC support provided 07/30. Epogen 15227 units and Venofer 100 mg provided with HD 08/02 (4) Edema of left upper arm: Plan: * Lymphedema from mastectomy. Duplex negative for DVT. (5) PAD (peripheral artery disease): Plan: * Ulcerative lesion L heel. Possible PROJECT INTERN occlusion * Cardiology plans to perform LE arteriography this morning Admission and Anticipated Discharge Date Admission Date: July 29, 2021 Subjective Ms. Narvaez was evaluated in her hospital room. She was breathing comfortably flat in bed while on O2 at 4L/min NC. Ms. Narvaez was oriented to self, place and month this morning. She had a dry cough when trying to speak. She is awaiting LLE angiography this morning Review of Systems Constitutional: + weakness Eyes: no problem reported Respiratory: no dyspnea Cardiovascular: no chest pain, no palpitations and no edema Gastrointestinal: no abdominal pain, no nausea, no vomiting and no diarrhea/loose stools Genitourinary: no dysuria and no hematuria Neurologic: no confusion Physical Exam Constitutional: + frail appearing; not in distress Eyes: PERRL, conjunctivae normal, anicteric sclerae ENMT: external ear and nose normal, oropharynx normal Mouth: + dry oral mucous membranes Neck: trachea midline, no thyromegaly Respiratory: normal respiratory effort, lungs clear to auscultation Cardiovascular: RRR, no murmur, no edema Gastrointestinal (Abdomen): normal bowel sounds, soft, nontender, no hepatosplenomegaly Neurologic: awake; not confused Results & Data ([facility]) Vital Signs (Past 12 Hours) Vital Signs Temp Pulse Pulse Resp BP Pulse Ox 08/11/21 07:46 36.4 C L 80 19 111/50 L 99 08/11/21 07:40 90 18 98 08/11/21 03:31 36.5 C 77 18 116/56 L 96 08/11/21 00:58 76 08/10/21 23:11 36.5 C 74 18 115/53 L 94 Laboratory Results Laboratory Tests 08/11/21 08/11/21 06:54 06:54 WBC 10.31 Hgb 11.1 L Hct 35.2 L Plt Count 242 Sodium 135 L Potassium 4.0 Chloride 103 Carbon Dioxide 22 BUN 36 H Creatinine 4.30 H D Glucose 90 Calcium 7.8 L PG Care Time/CCT Total # of Minutes Spent Total Time Spent with Patient: Total time spent is greater than 50% in coordination of care (as documented) at patient's floor/unit and/or counseling patient: Coding Level of Care Code 54527 Subseq Hosp Care Lvl 3 Diagnoses End-stage renal disease on hemodialysis N18.6; Z99.2 Hypotension I95.9 Anemia D64.9 Edema of left upper arm R60.0 PAD (peripheral artery disease) I73.9
[2021-08-11] MEDS: METOPROLOL TARTRATE 25 MG TAB PO SCH ×2 (08:45→19:29)
[2021-08-11] MEDS: BENZONATATE 100 MG CAPSULE PO SCH ×3 (08:45→19:29)
[2021-08-11] MEDS: AMPICILLIN/SULBACTAM SOD 3,000 MG in 0.9 % SODIUM CHLORIDE 100 ML IV SCH (08:45)
[2021-08-11] MEDS: PANTOprazole 40 MG TAB PO SCH ×2 (08:45→19:29)
[2021-08-11] MEDS: ADVANCED PROBIOTIC 1250 MG CAPSULE PO SCH (08:46)
[2021-08-11] MEDS: CLOPIDOGREL BISULFATE 75 MG TAB PO SCH (08:46)
[2021-08-11] MEDS: HEPARIN SOD 5,000 UNIT/0.5 ML VIAL SQ SCH ×2 (08:46→23:09)
[2021-08-11] MEDS: TRIAMCINOLONE ACET NASAL SPRAY 10.8ML BTL NAE SCH (08:47)
[2021-08-11] MEDS ORDERED: IPRATROPIUM BROMIDE HFA INHALER INH PRN (08:54)
[2021-08-11] MEDS ORDERED: LIDOCAINE 1% LOCAL 20 ML VIAL ONE (09:17)
[2021-08-11] MEDS: INSULIN GLARGINE SOLOSTAR 100 UNITS/ML 3 ML PEN SC SCH (10:10)
--- NOTE | 2021-08-11 11:22 | Pre Anesthesia Assessment ---
Date of Service August 11, 2021 Pre Sedation Assessment Vital Signs Temp Pulse Pulse Pulse Resp BP Pulse Ox 08/11/21 10:56 114/29 L 08/11/21 08:00 81 08/11/21 07:46 36.4 C L 80 19 111/50 L 99 08/11/21 07:40 90 18 98 08/11/21 03:31 36.5 C 77 18 116/56 L 96 08/11/21 00:58 76 08/10/21 23:11 36.5 C 74 18 115/53 L 94 08/10/21 19:30 83 93 08/10/21 19:26 36.4 C L 82 18 127/67 95 08/10/21 15:03 36.4 C L 75 16 109/38 L 95 08/10/21 14:59 76 20 97 Cardiovascular + irregularly irregular Respiratory normal respiratory effort, lungs clear to auscultation Pre-Sedation Airway Assessment Smoking Status: Never smoker Hx Sleep Apnea: No Short, Thick Neck: No Thyromental Distance: > or= 3.5 Finger Breadths Oral Cavity: + WNL Mallampati Class: IV ASA: ASA4 NPO Status Date of Last Intake of Fluids: 08/11/21 Time of Last Intake of Fluids: 08:00 Last Oral Intake of Fluids Comment: sip with meds Date of Last Intake of Solid Food: 08/10/21 Procedure Planning Contraindications for Sedation: none Current Medications Reviewed: Yes Notes The planned sedation has been discussed with the patient. Informed Consent was obtained. I have identified the patient, determined the appropriateness of sedation and have assessed the patient immediately prior to the procedure. All medicine(s) and interventions are by my order.
[2021-08-11] MEDS ORDERED: fentaNYL citrate 100 MCG/2 ML VIAL ONE ×2 (11:33→12:35)
[2021-08-11] MEDS ORDERED: MIDAZOLAM HCL 1 MG/ML 2ML VIAL ONE (11:33)
[2021-08-11] MEDS ORDERED: niCARdipine HCL INJ 2.5 MG/ML 10 ML AMP ONE (11:33)
[2021-08-11] MEDS ORDERED: NITROGLYCERIN/D5W 100MCG/ML 20ML SYR ONE (11:33)
[2021-08-11] MEDS ORDERED: HEPARIN (PORCINE) 1000 UNIT/ML 10 ML (CATH LAB USE ONLY) ONE (11:33)
--- NOTE | 2021-08-11 13:28 | Post Anesthesia Assessment ---
Date of Service August 11, 2021 Post Sedation Assessment Vital Signs Temp Pulse Pulse Pulse Pulse Resp BP 08/11/21 13:15 74 18 127/56 L 08/11/21 10:56 114/29 L 08/11/21 08:00 81 08/11/21 07:46 97.5 F L 80 19 111/50 L 08/11/21 07:40 90 18 08/11/21 03:31 97.7 F 77 18 116/56 L 08/11/21 00:58 76 08/10/21 23:11 97.7 F 74 18 115/53 L 08/10/21 19:30 83 08/10/21 19:26 97.5 F L 82 18 127/67 08/10/21 15:03 97.5 F L 75 16 109/38 L 08/10/21 14:59 76 20 Pulse Ox 08/11/21 13:15 95 08/11/21 10:56 08/11/21 08:00 08/11/21 07:46 99 08/11/21 07:40 98 08/11/21 03:31 96 08/11/21 00:58 08/10/21 23:11 94 08/10/21 19:30 93 08/10/21 19:26 95 08/10/21 15:03 95 08/10/21 14:59 97 Recovery Score Activity: Moves 4 extremities Respiration: Deep Breath/Cough Circulation: +/-20% PreAnes Value Consciousness: Fully Awake Oxygen Saturation: O2 needed for >90% Post Anesthesia Score: 2 Discharge Sedation Level of Care: Fast Track Phase II Post Sedation Plan On clinical assessment, the patient appears to have tolerated the sedation without complications. Patient is recovering as anticipated. Patient will continue to be monitored by nursing and may be discharged when sedation discharge criteria are met per below protocol. Upon Completions of procedure up to 15 minutes continue every 5 minute vital signs and the P.A.R. score; then discharge to a Phase I or Fast Track to Phase II per the following guidelines: * Discharge Patient to appropriate Phase II area if PAR is 8 or greater or return to pre- procedure baseline. The post - procedure orders will be as directed. * If PAR score is less than 8 or not return to pre-procedure baseline then patient will follow Phase I monitoring till PAR is reached for Phase II. The Phase I may be done in procedure room or may call to secure a Phase I area. * If naloxone or flumazenil are used for reversal, hold in Phase I for continued monitoring from when last reversal dose was given for a minimum of 60 minutes or longer pending the nurse and/or physician discretion of patient condition before discharge to Phase II. Please call the Sedation Physician to re-evaluate and complete post-note for discharge to Phase II area. Do NOT discharge from procedure sedation or Phase 1 until post- sedation evaluation note is complete by procedure /sedation MD Sedation Discharge Instructions to be given to the patient at discharge to home.
--- NOTE | 2021-08-11 14:15 | Endovascular Procedure Note ---
[facility] Endovascular Procedure Rpt Pre & Post Diagnosis Peripheral arterial disease I identified the patient and participated in the time-out.: Yes Procedure Operation Date: 08/11/21 10:00 Actual Procedures p Angio Extremity Unilateral - Wily Minaya MD Surgeon Bakari Minaya MD Auto Mechanics Instructor Scot Estimated Blood Loss 15 Findings See Below Abdominal aorta--infrarenal aorta with no significant aneurysmal or stenotic disease Right lower extremity-- -Common iliac, external iliac, internal iliac widely patent -MOUNTAIN SERVICES MANAGER, profunda widely patent -SFAdiffuse mild to moderate disease up to 30% proximally -Popliteal widely patent -GEMMA patent proximally -SENIOR ANALYST patent proximally, peroneal patent proximally Left lower extremity-- -Common iliac, external iliac, internal iliac widely patent -MOUNTAIN SERVICES MANAGER, profunda widely patent -SFAfocal 40 to 50% proximal stenosis with eccentric calcified plaque, mild distal disease -Poplitealproximal subtotal occlusion, midportion partially fills via collaterals TPT widely patent -GEMMA mild proximal disease then widely patent into the foot -SENIOR ANALYST small vessel, severe diffuse mid disease. Occluded distally and fills at the ankle via collaterals from peroneal Peroneal widely patent to the ankle -DPA widely patent and retrofilled plantar artery via patent deep plantar/plantar arch Anesthesia Type RN Sedation Radiation Exposure (mGv) Radiation (mGy): 211 Contrast Contrast: 105 Complications none Disposition Disposition: PCU Description of Procedure Right MOUNTAIN SERVICES MANAGER obtained under ultrasound guidance, short 5Fr sheath placed Abdominal aortogram and proximal left lower extremity angiogram performed with RIM catheter. 6 Fr 65 cm destination sheath placed from RT MOUNTAIN SERVICES MANAGER to LT SFA. Selective distal angiography through destination catheter. Proximal popliteal crossed with 0.35 Glidedvantage wire Angioplasty of proximal popliteal with 4.0 and 5.0 balloons. Distal SFA to proximal popliteal artery treated with 6.0 x 60mm Lutonix drug- eluting balloon. Post angioplasty good angiographic result, no evidence of dissection SENIOR ANALYST occlusive disease crossed with 0.14 command wire SENIOR ANALYST dilated with 2.0 balloon. Post procedure SENIOR ANALYST flow improved with moderate residual diffuse disease. 3 vessel runoff to ankle. Contrast used: 105 Moderate sedation: [id number] Access closure: AngioSeal Summary: 1. Left lower extremity -- 45% proximal SFA, 99% proximal popliteal stenosis. Severe diffuse occlusive SENIOR ANALYST disease. GEMMA/Peroneal widely patent. Pedal vessel widely patent. 2. Right lower extremity -- diffuse SFA/popliteal disease up to 30%. Widely patent GEMMA, peroneal and SENIOR ANALYST vessels. 3. Successful angioplasty of proximal popliteal subtotal occlusion with 6.0 x 60 mm Lutonix drug-eluting balloon. 4. Successful angioplasty of SENIOR ANALYST diffuse disease with 2.0 balloon. Recommendations: DAPT with ASA/Clopidogrel as tolerates. If no additional GI bleeding resume apixaban, clopidogrel and stop aspirin. Continue wound care. Follow-up non-invasive vascular testing in 2 weeks. I attest to the content of the Intraoperative Record and any orders documented therein. Any exceptions are noted below. Vascular Charges Angiography/Venography Procedure 1: Angiography/Venography charges: [id number] Aortography, abd + b/l iliofem LE, catheter, radiological S&I Procedure 2: Angiography/Venography charges: [id number] Initial 3rd order or selective abd, pelvic, or LE branch Lower Extremity Interventions Procedure 1: Lower Extremity Intervention charges: [id number] Angioplasty, femoral, popliteal artery(s), unilateral Procedure 2: Lower Extremity Intervention charges: [id number] Angioplasty, tibial, peroneal artery, unilateral, initial vessel Additional Services Procedure 1: Additional Services Charges: 81395 Moderate sedation initial 15 min Procedure 2: Additional Services Charges: 78473 Moderate sedation, each additional 15 min Procedure 3: Additional Services Charges: 37195 Ultrasound guidance - vascular access
[2021-08-11] MEDS: ATORVASTATIN 10 MG TAB PO SCH (19:29)
[2021-08-11] MEDS: FAMOTIDINE 20 MG TAB PO SCH (19:29)
[2021-08-11] MEDS: DOCUSATE SODIUM 100 MG CAP PO SCH (19:30)
[2021-08-11] MEDS: FLUTICASONE/VILANTEROL 200/25MCG 14 PUFFS/INHALER INH SCH (19:30)
--- NOTE | 2021-08-11 20:54 | Hospitalist Progress Note ---
Date of Service August 11, 2021 Assessment & Plan (1) Ulcer of left heel: Plan: Achilles region. 08/01/21 culture with MSSA. Previously on keflex, then Unasyn restarted on 08/08 due to low-grade fever & worsening appearance of the ulcer. No further fever. Appearance of ulcer continues to improve with less purulence. No surrounding cellulitis. Repeat wound cx with MSSA; no new pathogens. Appreciate Dr Minaya' intervention today - s/p popliteal & MOLD MAKER PLASTIC MOLDS angioplasty. Continue plavix. Continue aspirin. Continue lipitor. Continue pain meds prn. Continue IV unasyn. Likely over to keflex or augmentin this weekend. (2) Upper GI bleed: Plan: Suspected, at time of admission. Required 2 units PRBCs for lowest Hb of 7.9. H/H stable since then. Seen by [facility] - endoscopy deferred. Remains on protonix BID. Eliquis remains on hold. Can likely resume post-arteriogram. Plavix restarted 08/02/21. Remains on aspirin 81mg daily. Heparin SC for DVT proph added and tolerating such without any signs of GI bleeding. CBC am for stability. (3) Coronary disease: Plan: HORACE to LAD and D1 07/2015. 07/30/2021 echo: Normal LV SF, EF 55-60%, no wall motion abnormalities. Continue Plavix 75 mg every morning and atorvastatin 10 mg daily. Imdur on hold due to low BPs. High-sensitivity troponin peaked at 745 -- this was likely 2nd to myocardial demand ischemia rather than ACS. (4) End-stage renal disease on hemodialysis: Plan: Appreciate [facility] Nephrology assistance for HD needs. Schedule M/W/. (5) Chronic cough: Plan: Present for 2+ years. Has seen pulmonary, ENT and GI for such. Is not on TANVIR or ARB. Previous laryngoscopy in 2020 with supraglottic secretions - aspiration? reflux? post-nasal drip? Some concern of neurogenic cough vs irritative larynx syndrome vs other (cough worse when talking). Previous PFTs with NO obstruction - moderate restriction. Cough seems better with the below meds. Cont atrovent HFA 2 puffs qid but make PRN. Cont nasocort to both nares daily. Cont Tessalon 200mg TID. (6) Atrial flutter with rapid ventricular response: Plan: a.fib/flutter. converted to NSR earlier today. cont metoprolol 12.5mg BID. Recent Eliquis use now on hold due to concern of #2 but suspect we can resume such this weekend. Continue telemetry. (7) Confusion and disorientation: Plan: Acute metabolic encephalopathy in setting of underlying dementia/cognitive impairment. Mental status continues to wax/wane but more often than not her MS has been pretty good last few days. Cont supportive care. (8) Diabetes: Plan: Hba1C 5.5% Cont lantus 10 units daily Cont novolog SSI Controlled (9) Aspiration, chronic pulmonary: Plan: per records. multiple swallow evals in the past by speech therapy. no issues at this time. (10) Breast cancer: Plan: noted. with mets to ribs based on imaging 04/2021. (11) Dysphagia: Plan: see #9 above (12) Hypothyroidism: Plan: TSH 06/2021 ~20. compliance outside the hospital? Since compliance may have been an issue will leave levothyroxine dose at 150mcg/day and recheck TSH in 4-6 weeks. (13) PAD (peripheral artery disease): Plan: s/p b/l LE arteriogram today. RLE a-gram wnl. LLE a-gram - popliteal artery and MOLD MAKER PLASTIC MOLDS occlusions s/p angioplasty by Dr Minaya. No stents. Cont plavix, asa, statin. Once eliquis is resumed then stop asa and just cont plavix. Plan: spoke with pt's son, Brice, who practices in [place] - 08/09/21 and then again today he is aware of results of arteriogram extensive update given dispo - [facility] next week once bed is available Admission and Anticipated Discharge Date Admission Date: July 29, 2021 Subjective no issues overnight remains in NSR I saw her post arteriogram and she was heavily sedated awoke briefly to her name being called, would say hello, then quickly return to sleep per nursing was awake/alert prior to her procedure Review of Systems Review of Systems: Unobtainable due to cognitive status (heavy sedation from procedure ) Physical Exam Physical Exam: gen - sedated/sleepy neck - no JVD mouth - MMM heart - RRR, s1 s2, no murmur lungs - decreased BS bases, CTA b/l abd - soft NT ND BS+; no HSM ext - no edema, pulses 2+ b/l including MOLD MAKER PLASTIC MOLDS b/l skin - dressings removed from L achilles region - yellow drainage from ulcer is gone; mild eschar superior portion of ulceration; sharp wound edges with minimal granulation vascular - left tunneled IJ dialysis catheter clean; right chest a-port clean Results & Data Results & Data ([facility]) Vital Signs (Past 12 Hours) Vital Signs Temp Pulse Pulse Pulse Pulse Resp BP 08/11/21 20:40 76 117/55 L 08/11/21 20:20 72 113/54 L 08/11/21 20:00 73 119/57 L 08/11/21 19:41 75 125/61 08/11/21 19:31 36.9 C 75 08/11/21 18:20 67 14 08/11/21 17:20 37 C 08/11/21 16:20 36.7 C 70 14 08/11/21 15:20 67 16 08/11/21 14:50 67 14 08/11/21 14:20 67 14 08/11/21 14:05 79 14 08/11/21 13:50 36.1 C L 08/11/21 13:48 36.2 C L 73 14 08/11/21 13:30 70 18 08/11/21 13:15 74 18 08/11/21 10:56 BP Pulse Ox 08/11/21 20:40 08/11/21 20:20 08/11/21 20:00 08/11/21 19:41 08/11/21 19:31 08/11/21 18:20 118/62 94 08/11/21 17:20 08/11/21 16:20 114/40 L 96 08/11/21 15:20 107/72 97 08/11/21 14:50 128/71 97 08/11/21 14:20 122/57 L 99 08/11/21 14:05 120/50 L 97 08/11/21 13:50 08/11/21 13:48 142/74 H 96 08/11/21 13:30 108/62 96 08/11/21 13:15 127/56 L 95 08/11/21 10:56 114/29 L Laboratory Results Laboratory Results - last 24 hr 08/11/21 08/11/21 08/11/21 06:54 06:54 12:28 WBC 10.31 RBC 3.68 L Hgb 11.1 L Hct 35.2 L MCV 95.7 MCH 30.2 MCHC 31.5 L RDW Std Deviation 63.8 H RDW Coeff of Oj 18.0 H Plt Count 242 MPV 10.9 H Activ Coag Time Kaolin 303 H Sodium 135 L Potassium 4.0 Chloride 103 Carbon Dioxide 22 Anion Gap 10 BUN 36 H Creatinine 4.30 H D Est Cr Clr Drug Dosing 9.7 Est GFR ( Amer) 10.2 Est GFR (Non-Af Amer) 8.8 BUN/Creatinine Ratio 8.4 L Glucose 90 POC Glucose Calcium 7.8 L 08/11/21 16:40 WBC RBC Hgb Hct MCV MCH MCHC RDW Std Deviation RDW Coeff of Jo Plt Count MPV Activ Coag Time Kaolin Sodium Potassium Chloride Carbon Dioxide Anion Gap BUN Creatinine Est Cr Clr Drug Dosing Est GFR ( Amer) Est GFR (Non-Af Amer) BUN/Creatinine Ratio Glucose POC Glucose 94 Calcium Diagnostic Findings L achilles wound cx - MSSA PG Care Time/CCT Total # of Minutes Spent Total Time Spent with Patient: Total time spent is greater than 50% in coordination of care (as documented) at patient's floor/unit and/or counseling patient: Coding Level of Care Code 60148 Subseq Hosp Care Lvl 2 Diagnoses Ulcer of left heel L97.429 Upper GI bleed K92.2 Coronary disease I25.10 End-stage renal disease on hemodialysis N18.6; Z99.2 Chronic cough R05 Atrial flutter with rapid ventricular response I48.92 Confusion and disorientation R41.0 Diabetes E11.9 Aspiration, chronic pulmonary T17.908A Encounter type: initial encounter Breast cancer C50.919 Dysphagia R13.10 Hypothyroidism E03.9 Hypothyroidism type: unspecified PAD (peripheral artery disease) I73.9 (1) Hypothyroidism Hypothyroidism type: unspecified Qualified Code(s): E03.9 - Hypothyroidism, unspecified (2) Aspiration, chronic pulmonary Encounter type: initial encounter Qualified Code(s): T17.908A - Unspecified foreign body in respiratory tract, part unspecified causing other injury, initial encounter
[2021-08-12] MEDS: LEVOTHYROXINE SODIUM 150 MCG TABLET PO SCH (05:26)
[2021-08-12 06:16] LABS: Hematocrit (blood only) 35.3 % (37-47); Mean Corpuscular Hemoglobin 30.1 pg (25-34); Mean Corpuscular Hgb Conc 31.2 g/dL (32-36); Mean Corpuscular Volume 96.7 fL (80-100); Mean Platelet Volume 11.1 fL (7.4-10.4); Platelet Count 251 K/uL (130-400); RDW Standard Deviation 63.8 fL (36.4-46.3); Red Blood Count 3.65 M/uL (4.2-5.4); White Blood Count 10.16 K/uL (4.8-10.8)
[2021-08-12 06:28] LABS: BUN Creatinine Ratio 6.9 (10-20); Calcium 7.9 mg/dl (8.5-10.1); Creatinine Clr Calc Pharmacy 12.9 ml/min; Est GFR (African American) 14.5 ml/min; Est GFR (Non-African American) 12.5 ml/min
[2021-08-12] MEDS: INSULIN ASPART PER UNIT SC SCH ×4 (08:45→21:50)
[2021-08-12] MEDS: HEPARIN SOD 5,000 UNIT/0.5 ML VIAL SQ SCH ×2 (09:08→21:28)
[2021-08-12] MEDS: CLOPIDOGREL BISULFATE 75 MG TAB PO SCH (09:09)
[2021-08-12] MEDS: METOPROLOL TARTRATE 25 MG TAB PO SCH ×2 (09:09→21:25)
[2021-08-12] MEDS: PANTOprazole 40 MG TAB PO SCH ×2 (09:09→21:27)
[2021-08-12] MEDS: BENZONATATE 100 MG CAPSULE PO SCH ×3 (09:09→21:26)
[2021-08-12] MEDS: ASPIRIN 81 MG ECTAB PO SCH (09:09)
[2021-08-12] MEDS: AMPICILLIN/SULBACTAM SOD 3,000 MG in 0.9 % SODIUM CHLORIDE 100 ML IV SCH (09:09)
[2021-08-12] MEDS: TRIAMCINOLONE ACET NASAL SPRAY 10.8ML BTL NAE SCH (09:09)
[2021-08-12] MEDS: ADVANCED PROBIOTIC 1250 MG CAPSULE PO SCH (09:09)
[2021-08-12] MEDS: INSULIN GLARGINE SOLOSTAR 100 UNITS/ML 3 ML PEN SC SCH (09:15)
--- NOTE | 2021-08-12 09:40 | Nephrology Progress Note ---
Date of Service August 12, 2021 Assessment & Plan (1) End-stage renal disease on hemodialysis: Plan: * ESKD on HD MWF at [facility] (4 hrs, 180 optiflux, Qb 400 Qd 800, 3 K bath. EDW 82.5 kg) * EDW has been reduced to 74 kg this hospitalization. * Completed HD yesterday without complications. * AVF able to be used without issues. * If we have success with continued AVF use over the next couple of HD treatments, TDC may be removed. * Adequate UF and tolerating HD well. Subtle rales on exam today and O2 requirement increased, may consider short HD treatment this afternoon, if condition does not improve. (2) Hypotension: Plan: * BP remains acceptable. Will monitor. * Patient tolerated HD 08/07 and 08/09/21 without Midodrine therapy. (3) Anemia: Plan: * UGI bleed at time of hospitalization. H&H stabilized following blood transfusion. No endoscopic evaluation performed due to potential risks involved w/ procedure and improvement following supportive care * 2 units PRBC support provided 07/30. Epogen 83158 units and Venofer 100 mg provided with HD 08/02 (4) Edema of left upper arm: Plan: * Lymphedema from mastectomy. Duplex negative for DVT. (5) PAD (peripheral artery disease): Plan: * Ulcerative lesion L heel. * s/p 08/11 angioplasty of proximal popliteal subtotal occlusion and angioplasty of CARTON WAXING MACHINE OPERATOR diffuse disease. Admission and Anticipated Discharge Date Admission Date: July 29, 2021 Subjective No acute events overnight. Tolerated HD yesterday without complications. Net UF 2 L. No issues with AVF use. Overall, Emily feels well. Breathing comfortably. s/p LE angioplasty yesterday without complications. Review of Systems Review of Systems: All systems reviewed & are unremarkable except as noted in HPI & below Physical Exam Constitutional: well developed and + frail appearing; no acute distress Eyes: + anicteric sclerae; no corneal abnormality ENMT: Mouth: no oral mucosal abnormality and oral mucous membranes not dry Neck: normal visual inspection and trachea midline Respiratory: normal respiratory effort and + cough Auscultation: lungs clear to auscultation bilaterally Cardiovascular: Rate/Rhythm: regular rate Heart Sounds: normal S1 and normal S2 Extremities: + edema and + AV fistula Musculoskeletal: Extremities: no cyanosis and no clubbing Skin: + turgor decreased; no jaundice Neurologic: Motor/Sensory: no tremor and no asterixis Psychiatric: Orientation: alert and cooperative Results & Data ([facility]) Vital Signs (Past 12 Hours) Vital Signs Temp Pulse Pulse Pulse Pulse Resp BP 08/12/21 07:54 87 08/12/21 07:18 36.7 C 84 20 08/12/21 04:58 36.4 C L 106 H 20 08/11/21 23:03 36.4 C L 86 08/11/21 23:00 81 08/11/21 22:20 79 121/52 L 08/11/21 22:00 79 124/52 L 08/11/21 21:40 78 119/54 L BP Pulse Ox 08/12/21 07:54 08/12/21 07:18 110/50 L 98 08/12/21 04:58 134/63 94 08/11/21 23:03 128/65 08/11/21 23:00 08/11/21 22:20 08/11/21 22:00 08/11/21 21:40 Laboratory Results Laboratory Results - last 24 hr 08/11/21 08/11/21 08/11/21 12:28 16:40 21:01 WBC RBC Hgb Hct MCV MCH MCHC RDW Std Deviation RDW Coeff of Oj Plt Count MPV Activ Coag Time Kaolin 303 H Sodium Potassium Chloride Carbon Dioxide Anion Gap BUN Creatinine Est Cr Clr Drug Dosing Est GFR ( Amer) Est GFR (Non-Af Amer) BUN/Creatinine Ratio Glucose POC Glucose 94 77 Calcium 08/12/21 08/12/21 08/12/21 05:25 05:25 07:20 WBC 10.16 RBC 3.65 L Hgb 11.0 L Hct 35.3 L MCV 96.7 MCH 30.1 MCHC 31.2 L RDW Std Deviation 63.8 H RDW Coeff of Oj 18.0 H Plt Count 251 MPV 11.1 H Activ Coag Time Kaolin Sodium 136 Potassium 4.0 Chloride 103 Carbon Dioxide 22 Anion Gap 11 BUN 22 Creatinine 3.21 H D Est Cr Clr Drug Dosing 12.9 Est GFR ( Amer) 14.5 Est GFR (Non-Af Amer) 12.5 BUN/Creatinine Ratio 6.9 L Glucose 101 H POC Glucose 106 H Calcium 7.9 L PG Care Time/CCT Total # of Minutes Spent Total Time Spent with Patient: Total time spent is greater than 50% in coordination of care (as documented) at patient's floor/unit and/or counseling patient: Coding Level of Care Code 41984 Subseq Hosp Care Lvl 3 Diagnoses End-stage renal disease on hemodialysis N18.6; Z99.2 Hypotension I95.9 Anemia D64.9 Edema of left upper arm R60.0 PAD (peripheral artery disease) I73.9
[2021-08-12] MEDS: ATORVASTATIN 10 MG TAB PO SCH (21:25)
[2021-08-12] MEDS: FAMOTIDINE 20 MG TAB PO SCH (21:29)
[2021-08-12] MEDS: DOCUSATE SODIUM 100 MG CAP PO SCH (21:30)
[2021-08-12] MEDS: FLUTICASONE/VILANTEROL 200/25MCG 14 PUFFS/INHALER INH SCH (21:30)
[2021-08-12] MEDS: PRAMIPEXOLE DIHYDROCHLO 0.25 MG TAB PO SCH (22:09)
--- NOTE | 2021-08-12 22:31 | Hospitalist Progress Note ---
Date of Service August 12, 2021 Assessment & Plan (1) Ulcer of left heel: Plan: Achilles region. 08/01/21 culture with MSSA. Previously on keflex, then Unasyn restarted on 08/08 due to low-grade fever & worsening appearance of the ulcer. No further fever. Appearance of ulcer continues to improve with less purulence. No surrounding cellulitis. Repeat wound cx with MSSA; no new pathogens. Appreciate Dr Minaya' intervention 08/11/21 - s/p popliteal & [employer] angioplasty. There is a 2nd tiny ulceration over calcaneal region. Cover the 2nd ulcer with optifoam. Asked nurses to place waffle boots to float the heels. Continue plavix. Continue aspirin. Continue lipitor. Continue pain meds prn. Continue IV unasyn. Likely over to keflex or augmentin this weekend. (2) Upper GI bleed: Plan: Suspected, at time of admission. Required 2 units PRBCs for lowest Hb of 7.9. H/H stable since then. Se[place] [facility] [place] deferred. Remains on protonix BID. Eliquis remains on hold. Can likely resume post-arteriogram. Plavix restarted 08/02/21. Remains on aspirin 81mg daily. Heparin SC for DVT proph added and tolerating such without any signs of GI bleeding. CBC am for stability. (3) Coronary disease: Plan: HORACE to LAD and D1 07/2015. 07/30/2021 echo: Normal LV SF, EF 55-60%, no wall motion abnormalities. Continue Plavix 75 mg every morning and atorvastatin 10 mg daily. Imdur on hold due to low BPs. High-sensitivity troponin peaked at 745 -- this was likely 2nd to myocardial demand ischemia rather than ACS. (4) End-stage renal disease on hemodialysis: Plan: Appreciate [facility] for HD needs. Schedule M/W/F. Volume status acceptable. (5) Chronic cough: Plan: Present for 2+ years. Has seen pulmonary, ENT and GI for such. Is not on TANVIR or ARB. Previous laryngoscopy in 2020 with supraglottic secretions - aspiration? reflux? post-nasal drip? Some concern of neurogenic cough vs irritative larynx syndrome vs other (cough worse when talking). Previous PFTs with NO obstruction - moderate restriction. Cont atrovent HFA 2 puffs qid PRN. Cont nasacort daily. Cont Tessalon 200mg TID. (6) Atrial flutter with rapid ventricular response: Plan: a.fib/flutter. converted to NSR 2 days ago. NSR since. cont metoprolol 12.5mg BID. Recent Eliquis use now on hold due to concern of #2 but suspect we can resume such this weekend. Continue telemetry. (7) Confusion and disorientation: Plan: Acute metabolic encephalopathy in setting of underlying dementia/cognitive impairment. Mental status continues to wax/wane but more often than not her MS has been pretty good last few days. Cont supportive care. (8) Diabetes: Plan: Hba1C 5.5% Having lows. HOLD LANTUS. Cont novolog SSI but loosen the correction & carb ratio (9) Aspiration, chronic pulmonary: Plan: per records. multiple swallow evals in the past by speech therapy. no issues at this time. (10) Breast cancer: Plan: noted. with mets to ribs based on imaging 04/2021. (11) Dysphagia: Plan: see #9 above (12) Hypothyroidism: Plan: TSH 06/2021 ~20. compliance outside the hospital? Since compliance may have been an issue will leave levothyroxine dose at 150mcg/day and recheck TSH in 4-6 weeks. (13) PAD (peripheral artery disease): Plan: POD #1 s/p b/l LE arteriogram by Dr Minaya. RLE a-gram wnl. LLE a-gram - popliteal artery and [employer] occlusions s/p angioplasty by Dr Minaya. No stents. Cont plavix, asa, statin. Once eliquis is resumed then stop asa and just cont plavix. Plan: spoke with pt's son, Brice, who practices in [place] - 08/09/21 and 08/11/21 he is aware of results of arteriogram extensive update given dispo - [facility] next week once bed is available d/c telemetry move to med/surg Admission and Anticipated Discharge Date Admission Date: July 29, 2021 Subjective NSR overnight on tele no issues per staff eating fair/good she offers no new complaints Review of Systems Review of Systems: gen - no fevers/chills cv - no orthopnea pulm - cough - no change GI - no N/V Physical Exam Physical Exam: gen - awake, alert, cough minimal today neck - no JVD mouth - MMM heart - RRR, s1 s2, no murmur lungs - decreased BS bases, CTA b/l; no rales or wheezing abd - soft NT ND BS+; no HSM ext - no edema, pulses 2+ b/l skin - dressings removed from L achilles region - yellow drainage from ulcer is gone; mild eschar superior portion of ulceration; sharp wound edges with minimal granulation; there is a new, tiny ulcer - 0.5cm and 1mm depth - over L calcaneal region; dry skin throughout the left leg vascular - left tunneled IJ dialysis catheter clean; right chest a-port clean Results & Data Results & Data ([facility]) Vital Signs (Past 12 Hours) Vital Signs Temp Pulse Pulse Pulse Resp BP Pulse Ox 08/12/21 21:23 75 16 92/57 L 95 08/12/21 21:18 36.9 C 79 20 96/58 L 96 08/12/21 16:50 36.7 C 81 24 130/69 97 08/12/21 15:18 36.5 C 73 24 115/58 L 100 08/12/21 15:08 72 08/12/21 11:14 36.9 C 78 22 108/54 L 100 Laboratory Results Laboratory Results - last 24 hr 08/12/21 08/12/21 08/12/21 05:25 05:25 07:20 WBC 10.16 RBC 3.65 L Hgb 11.0 L Hct 35.3 L MCV 96.7 MCH 30.1 MCHC 31.2 L RDW Std Deviation 63.8 H RDW Coeff of Oj 18.0 H Plt Count 251 MPV 11.1 H Sodium 136 Potassium 4.0 Chloride 103 Carbon Dioxide 22 Anion Gap 11 BUN 22 Creatinine 3.21 H D Est Cr Clr Drug Dosing 12.9 Est GFR ( Amer) 14.5 Est GFR (Non-Af Amer) 12.5 BUN/Creatinine Ratio 6.9 L Glucose 101 H POC Glucose 106 H Calcium 7.9 L 08/12/21 08/12/21 08/12/21 11:12 16:25 20:54 WBC RBC Hgb Hct MCV MCH MCHC RDW Std Deviation RDW Coeff of Oj Plt Count MPV Sodium Potassium Chloride Carbon Dioxide Anion Gap BUN Creatinine Est Cr Clr Drug Dosing Est GFR ( Amer) Est GFR (Non-Af Amer) BUN/Creatinine Ratio Glucose POC Glucose 189 H 109 H 50 L* Calcium 08/12/21 08/12/21 20:56 21:16 WBC RBC Hgb Hct MCV MCH MCHC RDW Std Deviation RDW Coeff of Oj Plt Count MPV Sodium Potassium Chloride Carbon Dioxide Anion Gap BUN Creatinine Est Cr Clr Drug Dosing Est GFR ( Amer) Est GFR (Non-Af Amer) BUN/Creatinine Ratio Glucose POC Glucose 63 L* 71 Calcium PG Care Time/CCT Total # of Minutes Spent Total Time Spent with Patient: Total time spent is greater than 50% in coordination of care (as documented) at patient's floor/unit and/or counseling patient: Coding Level of Care Code 78677 Subseq Hosp Care Lvl 2 Diagnoses Ulcer of left heel L97.429 Upper GI bleed K92.2 Coronary disease I25.10 End-stage renal disease on hemodialysis N18.6; Z99.2 Chronic cough R05 Atrial flutter with rapid ventricular response I48.92 Confusion and disorientation R41.0 Diabetes E11.9 Aspiration, chronic pulmonary T17.908A Encounter type: initial encounter Breast cancer C50.919 Dysphagia R13.10 Hypothyroidism E03.9 Hypothyroidism type: unspecified PAD (peripheral artery disease) I73.9 (1) Hypothyroidism Hypothyroidism type: unspecified Qualified Code(s): E03.9 - Hypothyroidism, unspecified (2) Aspiration, chronic pulmonary Encounter type: initial encounter Qualified Code(s): T17.908A - Unspecified foreign body in respiratory tract, part unspecified causing other injury, initial encounter
[2021-08-13 06:03] LABS: Hematocrit (blood only) 34.2 % (37-47); Hemoglobin 10.6 g/dL (12.0-16.0); Mean Corpuscular Hemoglobin 29.5 pg (25-34); Mean Corpuscular Volume 95.3 fL (80-100); Mean Platelet Volume 10.9 fL (7.4-10.4); Platelet Count 247 K/uL (130-400); RDW Coefficient of Variation 17.7 % (11.5-14.5); RDW Standard Deviation 62.2 fL (36.4-46.3); Red Blood Count 3.59 M/uL (4.2-5.4); White Blood Count 9.96 K/uL (4.8-10.8)
[2021-08-13] MEDS: LEVOTHYROXINE SODIUM 150 MCG TABLET PO SCH (06:46)
[2021-08-13] MEDS: BENZONATATE 100 MG CAPSULE PO SCH ×3 (08:52→20:30)
[2021-08-13] MEDS: ASPIRIN 81 MG ECTAB PO SCH (08:52)
[2021-08-13] MEDS: PANTOprazole 40 MG TAB PO SCH ×2 (08:53→20:27)
[2021-08-13] MEDS: CLOPIDOGREL BISULFATE 75 MG TAB PO SCH (08:53)
[2021-08-13] MEDS: METOPROLOL TARTRATE 25 MG TAB PO SCH ×2 (08:53→20:26)
[2021-08-13] MEDS: ADVANCED PROBIOTIC 1250 MG CAPSULE PO SCH (08:54)
[2021-08-13] MEDS: HEPARIN SOD 5,000 UNIT/0.5 ML VIAL SQ SCH ×2 (08:57→20:25)
[2021-08-13] MEDS: TRIAMCINOLONE ACET NASAL SPRAY 10.8ML BTL NAE SCH (08:57)
[2021-08-13] MEDS: INSULIN ASPART PER UNIT SC SCH ×4 (09:00→21:00)
[2021-08-13] MEDS: AMPICILLIN/SULBACTAM SOD 3,000 MG in 0.9 % SODIUM CHLORIDE 100 ML IV SCH (09:45)
[2021-08-13] MEDS: HEPARIN 100 UNIT/ML 5ML FLUSH FLUSH PRN (10:23)
--- NOTE | 2021-08-13 10:46 | Nephrology Progress Note ---
Date of Service August 13, 2021 Assessment & Plan (1) End-stage renal disease on hemodialysis: Plan: * ESKD on HD MWF at [facility] (4 hrs, 180 optiflux, Qb 400 Qd 800, 3 K bath. EDW 82.5 kg). * EDW has been reduced to 74 kg this hospitalization. * Prelim orders for HD tomorrow entered into EHR. * AVF able to be used without issues. * If AVF use is successful with next couple of HD treatments, TDC may be removed. (2) Hypotension: Plan: * BP remains acceptable, improved. Monitoring. * Patient tolerated HD 08/07 and 08/09/21 without Midodrine therapy. (3) Anemia: Plan: * UGI bleed at time of hospitalization. H&H stabilized following blood transfusion. No endoscopic evaluation performed due to potential risks involved w/ procedure and improvement following supportive care * 2 units PRBC support provided 07/30. Epogen 47606 units and Venofer 100 mg provided with HD 08/02. * Additional 100 mg IV venofer with HD ordered for tomorrow. (4) Edema of left upper arm: Plan: * Lymphedema from mastectomy. Duplex negative for DVT. (5) PAD (peripheral artery disease): Plan: * Ulcerative lesion L heel. * s/p 08/11 angioplasty of proximal popliteal subtotal occlusion and angioplasty of [employer] diffuse disease. Admission and Anticipated Discharge Date Admission Date: July 29, 2021 Subjective No acute events overnight. No complaints this AM. Denies shortness of breath. Overall, feels well. Review of Systems Review of Systems: All systems reviewed & are unremarkable except as noted in HPI & below Physical Exam Constitutional: well developed and + frail appearing; no acute distress Eyes: + anicteric sclerae; no corneal abnormality ENMT: Mouth: no oral mucosal abnormality and oral mucous membranes not dry Neck: normal visual inspection and trachea midline Respiratory: normal respiratory effort and + cough Auscultation: lungs clear to auscultation bilaterally Cardiovascular: Rate/Rhythm: regular rate Heart Sounds: normal S1 and normal S2 Extremities: + edema and + AV fistula Musculoskeletal: Extremities: no cyanosis and no clubbing Skin: + turgor decreased; no jaundice Neurologic: Motor/Sensory: no tremor and no asterixis Psychiatric: Orientation: alert and cooperative Results & Data ([facility]) Vital Signs (Past 12 Hours) Vital Signs Temp Pulse Pulse Resp BP Pulse Ox 08/13/21 08:51 72 112/69 08/13/21 07:40 36.4 C L 77 21 101/59 L 97 Laboratory Results Laboratory Results - last 24 hr 08/12/21 08/12/21 08/12/21 11:12 16:25 20:54 WBC RBC Hgb Hct MCV MCH MCHC RDW Std Deviation RDW Coeff of Oj Plt Count MPV POC Glucose 189 H 109 H 50 L* 08/12/21 08/12/21 08/13/21 20:56 21:16 05:41 WBC 9.96 RBC 3.59 L Hgb 10.6 L Hct 34.2 L MCV 95.3 MCH 29.5 MCHC 31.0 L RDW Std Deviation 62.2 H RDW Coeff of Oj 17.7 H Plt Count 247 MPV 10.9 H POC Glucose 63 L* 71 08/13/21 08:05 WBC RBC Hgb Hct MCV MCH MCHC RDW Std Deviation RDW Coeff of Oj Plt Count MPV POC Glucose 115 H PG Care Time/CCT Total # of Minutes Spent Total Time Spent with Patient: Total time spent is greater than 50% in coordination of care (as documented) at patient's floor/unit and/or counseling patient: Coding Level of Care Code 62911 Subseq Hosp Care Lvl 3 Diagnoses End-stage renal disease on hemodialysis N18.6; Z99.2 Hypotension I95.9 Anemia D64.9 Edema of left upper arm R60.0 PAD (peripheral artery disease) I73.9
[2021-08-13] MEDS: ATORVASTATIN 10 MG TAB PO SCH (20:24)
[2021-08-13] MEDS: FLUTICASONE/VILANTEROL 200/25MCG 14 PUFFS/INHALER INH SCH (20:25)
[2021-08-13] MEDS: PRAMIPEXOLE DIHYDROCHLO 0.25 MG TAB PO SCH (20:27)
[2021-08-13] MEDS: DOCUSATE SODIUM 100 MG CAP PO SCH (20:30)
[2021-08-13] MEDS: FAMOTIDINE 20 MG TAB PO SCH (20:30)
--- NOTE | 2021-08-13 22:15 | Hospitalist Progress Note ---
Date of Service August 13, 2021 Assessment & Plan (1) Ulcer of left heel: Plan: Achilles region. 08/01/21 culture with MSSA. Previously on keflex, then Unasyn restarted on 08/08 due to low-grade fever & worsening appearance of the ulcer. No further fever. Appearance of ulcer continues to improve with less purulence. No surrounding cellulitis. Repeat wound cx with MSSA; no new pathogens. Appreciate Dr Minaya' intervention 08/11/21 - s/p popliteal & COURT RECORDER angioplasty. There is a 2nd tiny ulceration over calcaneal region. Cover the 2nd ulcer with optifoam. Asked nurses to place waffle boots to float the heels. Continue plavix. Continue aspirin. Continue lipitor. Continue pain meds prn. Continue IV unasyn. Likely over to keflex or augmentin next 1-2 days. (2) Upper GI bleed: Plan: Suspected, at time of admission. Required 2 units PRBCs for lowest Hb of 7.9. H/H stable since then. Seen by [facility] - endoscopy deferred. Remains on protonix BID. Eliquis remains on hold. Can likely resume post-arteriogram. Plavix restarted 08/02/21. Remains on aspirin 81mg daily. Heparin SC for DVT proph added and tolerating such without any signs of GI bleeding. CBC am for stability. (3) Coronary disease: Plan: HORACE to LAD and D1 07/2015. 07/30/2021 echo: Normal LV SF, EF 55-60%, no wall motion abnormalities. Continue Plavix 75 mg every morning and atorvastatin 10 mg daily. Imdur on hold due to low BPs. High-sensitivity troponin peaked at 745 -- this was likely 2nd to myocardial demand ischemia rather than ACS. (4) End-stage renal disease on hemodialysis: Plan: Appreciate [facility] assistance for HD needs. Schedule M/W/F. Volume status acceptable. (5) Chronic cough: Plan: Present for 2+ years. Has seen pulmonary, ENT and GI for such. Is not on TANVIR or ARB. Previous laryngoscopy in 2020 with supraglottic secretions - aspiration? reflux? post-nasal drip? Some concern of neurogenic cough vs irritative larynx syndrome vs other (cough worse when talking). Previous PFTs with NO obstruction - moderate restriction. Cont atrovent HFA 2 puffs qid PRN. Cont nasacort daily. Cont Tessalon 200mg TID. (6) Atrial flutter with rapid ventricular response: Plan: a.fib/flutter. converted to NSR earlier this week. NSR since. examines in NSR today. cont metoprolol 12.5mg BID. Recent Eliquis use now on hold due to concern of #2 but suspect we can resume such soon, especially if no debridement is needed of the L achilles ulceration. (7) Confusion and disorientation: Plan: Acute metabolic encephalopathy in setting of underlying dementia/cognitive impairment. Ongoing. Has good days & bad days with respect to mentation. Cont supportive care. (8) Diabetes: Plan: Hba1C 5.5% Having lows. HOLD LANTUS. Cont novolog SSI but loosen the correction & carb ratio (9) Aspiration, chronic pulmonary: Plan: per records. multiple swallow evals in the past by speech therapy. no issues at this time. (10) Breast cancer: Plan: noted. with mets to ribs based on imaging 04/2021. (11) Dysphagia: Plan: see #9 above (12) Hypothyroidism: Plan: TSH 06/2021 ~20. compliance outside the hospital? Since compliance may have been an issue will leave levothyroxine dose at 150mcg/day and recheck TSH in 4-6 weeks. (13) PAD (peripheral artery disease): Plan: POD #1 s/p b/l LE arteriogram by Dr Minaya. RLE a-gram wnl. LLE a-gram - popliteal artery and COURT RECORDER occlusions s/p angioplasty by Dr Minaya. No stents. Cont plavix, asa, statin. Once eliquis is resumed then stop asa and just cont plavix. Plan: spoke with pt's son, Brcie, who practices in [place] - 08/09/21 and 08/11/21 and 08/13 (today) he is aware of results of arteriogram extensive update given dispo - [facility] next week once bed is available ? pull the HD catheter before d/c if AV fistula continues to work well? Admission and Anticipated Discharge Date Admission Date: July 29, 2021 Subjective no new issues overnight patient confused during the visit did not offer any new complaints nursing flowsheets show poor intake today denied pain of left foot/heel Review of Systems Review of Systems: Unobtainable due to cognitive status Physical Exam Physical Exam: gen - awake, alert - but confused neck - no JVD mouth - MMM heart - RRR, s1 s2, no murmur lungs - decreased BS bases, CTA b/l; no rales or wheezing abd - soft NT ND BS+; no HSM ext - no edema, pulses 2+ b/l skin - dressings removed from L achilles region - yellow drainage from ulcer is gone; mild eschar superior portion of ulceration about the same as prior examiantion; sharp wound edges with minimal granulation; there is a new, tiny ulcer - 0.5cm and 1mm depth - over L calcaneal region -- unchanged; dry skin throughout the left leg vascular - left tunneled IJ dialysis catheter clean; right chest a-port clean av fistula RUE +bruit Results & Data Results & Data ([facility]) Vital Signs (Past 12 Hours) Vital Signs Temp Pulse Resp BP Pulse Ox 08/13/21 22:11 36.7 C 73 20 103/54 L 95 08/13/21 15:13 36.9 C 78 16 112/65 95 Laboratory Results Laboratory Results - last 24 hr 08/13/21 08/13/21 08/13/21 05:41 08:05 12:10 WBC 9.96 RBC 3.59 L Hgb 10.6 L Hct 34.2 L MCV 95.3 MCH 29.5 MCHC 31.0 L RDW Std Deviation 62.2 H RDW Coeff of Oj 17.7 H Plt Count 247 MPV 10.9 H POC Glucose 115 H 181 H 08/13/21 08/13/21 17:11 21:13 WBC RBC Hgb Hct MCV MCH MCHC RDW Std Deviation RDW Coeff of Oj Plt Count MPV POC Glucose 211 H 158 H PG Care Time/CCT Total # of Minutes Spent Total Time Spent with Patient: Total time spent is greater than 50% in coordination of care (as documented) at patient's floor/unit and/or counseling patient: Coding Level of Care Code 41873 Subseq Hosp Care Lvl 2 Diagnoses Ulcer of left heel L97.429 Upper GI bleed K92.2 Coronary disease I25.10 End-stage renal disease on hemodialysis N18.6; Z99.2 Chronic cough R05 Atrial flutter with rapid ventricular response I48.92 Confusion and disorientation R41.0 Diabetes E11.9 Aspiration, chronic pulmonary T17.908A Encounter type: initial encounter Breast cancer C50.919 Dysphagia R13.10 Hypothyroidism E03.9 Hypothyroidism type: unspecified PAD (peripheral artery disease) I73.9 (1) Hypothyroidism Hypothyroidism type: unspecified Qualified Code(s): E03.9 - Hypothyroidism, unspecified (2) Aspiration, chronic pulmonary Encounter type: initial encounter Qualified Code(s): T17.908A - Unspecified foreign body in respiratory tract, part unspecified causing other injury, initial encounter
[2021-08-14] MEDS: LEVOTHYROXINE SODIUM 150 MCG TABLET PO SCH (05:33)
[2021-08-14] MEDS ORDERED: IRON SUCROSE 100 MG in SYRINGE 0 ML IV ONE (07:00)
[2021-08-14 07:03] LABS: BUN Creatinine Ratio 7.4 (10-20); Calcium 7.5 mg/dl (8.5-10.1); Creatinine Clr Calc Pharmacy 7.7 ml/min; Est GFR (African American) 7.7 ml/min; Est GFR (Non-African American) 6.7 ml/min; Potassium 4.2 mmol/L (3.5-5.1)
[2021-08-14] MEDS: INSULIN ASPART PER UNIT SC SCH ×4 (09:06→20:58)
[2021-08-14] MEDS: CLOPIDOGREL BISULFATE 75 MG TAB PO SCH (09:15)
[2021-08-14] MEDS: ASPIRIN 81 MG ECTAB PO SCH (09:16)
[2021-08-14] MEDS: ADVANCED PROBIOTIC 1250 MG CAPSULE PO SCH (09:16)
[2021-08-14] MEDS: BENZONATATE 100 MG CAPSULE PO SCH ×3 (09:16→21:27)
[2021-08-14] MEDS: PANTOprazole 40 MG TAB PO SCH ×2 (09:16→21:23)
[2021-08-14] MEDS: TRIAMCINOLONE ACET NASAL SPRAY 10.8ML BTL NAE SCH (09:17)
[2021-08-14] MEDS: HEPARIN SOD 5,000 UNIT/0.5 ML VIAL SQ SCH ×2 (09:17→21:24)
[2021-08-14] MEDS: METOPROLOL TARTRATE 25 MG TAB PO SCH ×2 (09:26→21:23)
[2021-08-14] MEDS: AMPICILLIN/SULBACTAM SOD 3,000 MG in 0.9 % SODIUM CHLORIDE 100 ML IV SCH (09:29)
--- NOTE | 2021-08-14 12:25 | Nephrology Progress Note ---
Date of Service August 14, 2021 Assessment & Plan (1) End-stage renal disease on hemodialysis: (2) Upper GI bleed: (3) Coronary disease: (4) Edema of left upper arm: Plan: ESRD on HD, he she admitted to the upper GI bleeding, stabilized. -- Plan for dialysis today as her regular schedule of Saturday. -- If AV fistula continues to function well will consider consulting vascular surgery to remove tunneled dialysis catheter before discharge otherwise can be done as an outpatient. -- Dose medications for GFR less than 10, left arm nephrology precaution will follow. Admission and Anticipated Discharge Date Admission Date: July 29, 2021 Subjective Emily was seen and examined this morning. No overnight events, reports feeling better, denies SOB, CP, F/C. BP stable. Review of Systems Review of Systems: Detail ROS was unremarkable. Physical Exam Constitutional: WD/WN, vitals as above no acute distress Eyes: + anicteric sclerae ENMT: Ears: no hearing impairment Respiratory: no respiratory distress Auscultation: lungs clear to auscultation bilaterally Cardiovascular: Rate/Rhythm: regular rate and regular rhythm Heart Sounds: normal S1 and normal S2 Extremities: no edema Skin: no rashes Neurologic: no focal motor deficits and not confused Psychiatric: Orientation: alert and oriented x 3 Results & Data ([facility]) Vital Signs (Past 12 Hours) Vital Signs Temp Pulse Pulse Pulse Resp BP BP 08/14/21 12:00 74 113/61 08/14/21 11:30 75 113/54 L 08/14/21 11:00 75 118/71 08/14/21 10:30 73 129/60 08/14/21 10:12 36.9 C 75 08/14/21 06:37 36.3 C L 76 20 105/63 Pulse Ox 08/14/21 12:00 08/14/21 11:30 08/14/21 11:00 08/14/21 10:30 08/14/21 10:12 08/14/21 06:37 95 PG Care Time/CCT Total # of Minutes Spent Total Time Spent with Patient: Total time spent is greater than 50% in coordination of care (as documented) at patient's floor/unit and/or counseling patient: Coding Level of Care Code 27992 Subseq Hosp Care Lvl 3 Diagnoses End-stage renal disease on hemodialysis N18.6; Z99.2 Upper GI bleed K92.2 Coronary disease I25.10 Edema of left upper arm R60.0
--- NOTE | 2021-08-14 20:40 | Hospitalist Progress Note ---
Date of Service August 14, 2021 Assessment & Plan (1) Ulcer of left heel: Plan: Achilles region. 08/01/21 culture with MSSA. Previously on keflex, then Unasyn restarted on 08/08 due to low-grade fever & worsening appearance of the ulcer. Appearance of ulcer continues to improve with resolution of purulent drainage. No surrounding cellulitis. Repeat wound cx with MSSA; no new pathogens. Appreciate Dr Minaya' intervention 08/11/21 - s/p popliteal & VEN[employer]IAN [employer] angioplasty. There is a 2nd tiny ulceration over calcaneal region. Cover the 2nd ulcer with optifoam. Asked nurses to place waffle boots. I asked wound care nurse team to see again for any additional recommendations. Does this ulcer need debridement? Orthopedics (Dr Hernandez, [facility]) did see in consult earlier this admission. If the ulcer needs debridement re-consult Dr Hernandez. Continue plavix. Continue aspirin. Continue lipitor. Continue pain meds prn. Today is day #7 of IV unasyn. Can d/c such. Change to PO keflex tomorrow renally dosed. Plan 7 days in total of keflex. (2) Upper GI bleed: Plan: Suspected, at time of admission. Required 2 units PRBCs for lowest Hb of 7.9. H/H stable since then. Seen by [facility] GI - endoscopy deferred. Remains on protonix BID. Eliquis remains on hold. Can likely resume post-arteriogram. Plavix restarted 08/02/21. Remains on aspirin 81mg daily. Heparin SC for DVT proph added and tolerating such without any signs of GI bleeding. (3) Coronary disease: Plan: HORACE to LAD and D1 07/2015. 07/30/2021 echo: Normal LV SF, EF 55-60%, no wall motion abnormalities. Continue Plavix 75 mg every morning and atorvastatin 10 mg daily. Imdur on hold due to low BPs. High-sensitivity troponin peaked at 745 -- this was likely 2nd to myocardial demand ischemia rather than ACS. (4) End-stage renal disease on hemodialysis: Plan: Appreciate [facility] Nephrology assistance for HD needs. Schedule M/W/F. Volume status acceptable. Patient's right arm AVF is working well. Was used again today without incident. If Saturday's HD session goes well using the AVF the tunneled HD catheter could be removed later this week. Will ask Dr Morris to see in consult. Removal of HD catheter or Saturday if Saturday's HD session goes well? (5) Chronic cough: Plan: Present for 2+ years. Has seen pulmonary, ENT and GI for such. Is not on TANVIR or ARB. Previous laryngoscopy in 2020 with supraglottic secretions - aspiration? reflux? post-nasal drip? Some concern of neurogenic cough vs irritative larynx syndrome vs other (cough worse when talking). Previous PFTs with NO obstruction - moderate restriction. Cont atrovent HFA 2 puffs qid PRN. Cont nasacort daily. Cont Tessalon 200mg TID. (6) Atrial flutter with rapid ventricular response: Plan: a.fib/flutter. converted to NSR earlier this week. NSR since. examines in NSR once again today. cont metoprolol 12.5mg BID. Recent Eliquis use now on hold due to concern of #2 but suspect we can resume such soon, especially if no debridement is needed of the L achilles ulceration. (7) Confusion and disorientation: Plan: Acute metabolic encephalopathy in setting of underlying dementia/cognitive impairment. Ongoing. Has good days & bad days with respect to mentation. Cont supportive care. (8) Diabetes: Plan: Hba1C 5.5% Had lows over the weekend - resolved with HOLDING LANTUS. Cont novolog SSI (9) Aspiration, chronic pulmonary: Plan: per records. multiple swallow evals in the past by speech therapy. no issues at this time. (10) Breast cancer: Plan: noted. with mets to ribs based on imaging 04/2021. (11) Dysphagia: Plan: see #9 above (12) Hypothyroidism: Plan: TSH 06/2021 ~20. compliance outside the hospital? Since compliance may have been an issue will leave levothyroxine dose at 150mcg/day and recheck TSH in 4-6 weeks. (13) PAD (peripheral artery disease): Plan: s/p b/l LE arteriogram by Dr Minaya 08/11/21 RLE a-gram wnl. LLE popeye-justin - popliteal artery and V[employer]IC occlusions s/p angioplasty by Dr Minaya. No stents. Cont plavix, asa, statin. Once eliquis is resumed (resume such if no debridement is needed of L achilles region ulcer) then stop asa and just cont plavix. Plan: spoke with pt's son, Dr Narvaez, who practices geriatric medicine in [place] - 08/09/21 and 08/11/21 and 08/13/21 he is aware of results of arteriogram extensive update given during those phone calls dispo - [facility] later this week once bed is available ? pull the HD catheter before d/c if AV fistula continues to work well? see above Admission and Anticipated Discharge Date Admission Date: July 29, 2021 Subjective had HD today AV fistula was used without difficulty resting comfortably during the visit offers no new complaints had minimal cough while I was visiting with her Review of Systems Review of Systems: gen - "I feel ok"; asks "what the plan is", ate 100% of breakfast this am cv - no orthopnea pulm - no dyspnea GI - no abd pain, nausea, emesis Physical Exam Physical Exam: gen - awake, alert, NAD - mildly confused but nothing worse than baseline; no cough today neck - no JVD mouth - MMM heart - RRR, s1 s2, no murmur lungs - CTA b/l abd - soft NT ND BS+; no HSM ext - no edema, pulses 2+ b/l skin - dressings removed from L achilles region and left heel - yellow drainage from large achilles ulcer is resolved; mild eschar superior portion of ulceration about the same as prior exam or mildly better; sharp wound edges with minimal granulation; there is a new, tiny ulcer - 0.5cm and 1mm depth - over L calcaneal region -- unchanged; dry skin throughout the left leg and left ankle region vascular - left tunneled IJ dialysis catheter clean; right chest a-port clean Results & Data Results & Data ([facility]) Vital Signs (Past 12 Hours) Vital Signs Temp Pulse Pulse Resp BP BP Pulse Ox 08/14/21 14:57 36.7 C 98 H 18 108/67 91 08/14/21 14:10 36.7 C 82 114/52 L 08/14/21 13:30 80 104/40 L 08/14/21 13:00 80 132/55 L 08/14/21 12:30 81 120/54 L 08/14/21 12:00 74 113/61 08/14/21 11:30 75 113/54 L 08/14/21 11:00 75 118/71 08/14/21 10:30 73 129/60 08/14/21 10:12 36.9 C 75 Laboratory Results Laboratory Results - last 24 hr 08/14/21 08/14/21 08/14/21 06:20 08:21 08:48 Sodium 133 L Potassium 4.2 Chloride 100 Carbon Dioxide 22 Anion Gap 11 BUN 40 H Creatinine 5.42 H* Est Cr Clr Drug Dosing 7.7 Est GFR ( Amer) 7.7 Est GFR (Non-Af Amer) 6.7 BUN/Creatinine Ratio 7.4 L Glucose 151 H POC Glucose 140 H Calcium 7.5 L Hepatitis Be Antibody Pending Hepatitis Be Antigen Pending 08/14/21 08/14/21 08/14/21 14:38 17:06 20:48 Sodium Potassium Chloride Carbon Dioxide Anion Gap BUN Creatinine Est Cr Clr Drug Dosing Est GFR ( Amer) Est GFR (Non-Af Amer) BUN/Creatinine Ratio Glucose POC Glucose 123 H 159 H 152 H Calcium Hepatitis Be Antibody Hepatitis Be Antigen PG Care Time/CCT Total # of Minutes Spent Total Time Spent with Patient: Total time spent is greater than 50% in coordination of care (as documented) at patient's floor/unit and/or counseling patient: Coding Level of Care Code 13837 Subseq Hosp Care Lvl 2 Diagnoses Ulcer of left heel L97.429 Upper GI bleed K92.2 Coronary disease I25.10 End-stage renal disease on hemodialysis N18.6; Z99.2 Chronic cough R05 Atrial flutter with rapid ventricular response I48.92 Confusion and disorientation R41.0 Diabetes E11.9 Aspiration, chronic pulmonary T17.908A Encounter type: initial encounter Breast cancer C50.919 Dysphagia R13.10 Hypothyroidism E03.9 Hypothyroidism type: unspecified PAD (peripheral artery disease) I73.9 (1) Hypothyroidism Hypothyroidism type: unspecified Qualified Code(s): E03.9 - Hypothyroidism, unspecified (2) Aspiration, chronic pulmonary Encounter type: initial encounter Qualified Code(s): T17.908A - Unspecified foreign body in respiratory tract, part unspecified causing other injury, initial encounter
[2021-08-14] MEDS: ATORVASTATIN 10 MG TAB PO SCH (21:23)
[2021-08-14] MEDS: PRAMIPEXOLE DIHYDROCHLO 0.25 MG TAB PO SCH (21:23)
[2021-08-14] MEDS: FLUTICASONE/VILANTEROL 200/25MCG 14 PUFFS/INHALER INH SCH (21:24)
[2021-08-14] MEDS: cephALEXin 500 MG CAP PO SCH (21:26)
[2021-08-14] MEDS: FAMOTIDINE 20 MG TAB PO SCH (21:27)
[2021-08-14] MEDS: DOCUSATE SODIUM 100 MG CAP PO SCH (21:27)
--- NOTE | 2021-08-14 21:39 | Vascular Medicine ProgressNote ---
Date of Service August 14, 2021 Assessment & Plan (1) PAD (peripheral artery disease): Plan: Post left popliteal and DIE MAINTENANCE angioplasty 08/11 2. Left lower extremity ulceration 3. End-stage renal disease on dialysis 4. Type 2 diabetes 5. Atrial flutter previously on anticoagulation, now just clopidogrel 6. Coronary artery disease post prior PCI 7. Question of GI bleed 8. Intermittent confusion Stable post left popliteal, DIE MAINTENANCE angioplasty 3 days ago. No apparent access site complications and left popliteal, DP pulses improved. Tolerating DAPT with aspirin, clopidogrel with stable blood counts. Feel arterial perfusion should be adequate to heal current wound. Will need continued aggressive wound care. Continue DAPT with aspirin, clopidogrel for 1 month. If restarting Eliquis in the setting of atrial flutter would continue clopidogrel and discontinue aspirin. Follow-up noninvasive vascular testing in 2 weeks Vascular medicine to follow from the periphery. Please contact if any additional questions. Admission and Anticipated Discharge Date Admission Date: July 29, 2021 Subjective Feeling fine this afternoon. Denies pain in her left foot. Denies chest pain or shortness of breath. No other new concerns. Review of Systems Review of Systems: All systems reviewed & are unremarkable except as noted in HPI & below Physical Exam Physical Exam: General: Comfortable HEENT: Sclerae anicteric Lungs: Clear to auscultation anteriorly. Cardiac: Irregular irregular Extremities: Well perfused, no significant edema. Psych: Alert orient, pleasant Wounddressed without surrounding erythema. Vascular2+ radial pulses bilaterally. 1+ left popliteal. 2+ left DP. Diminished left PT. Right CAN CAPPER pulse intact, mild surrounding ecchymosis. No hematoma. Results & Data ([facility]) Vital Signs (Past 12 Hours) Vital Signs Temp Pulse Pulse Resp BP BP Pulse Ox 08/14/21 14:57 98.1 F 98 H 18 108/67 91 08/14/21 14:10 98.1 F 82 114/52 L 08/14/21 13:30 80 104/40 L 08/14/21 13:00 80 132/55 L 08/14/21 12:30 81 120/54 L 08/14/21 12:00 74 113/61 08/14/21 11:30 75 113/54 L 08/14/21 11:00 75 118/71 08/14/21 10:30 73 129/60 08/14/21 10:12 98.4 F 75 PG Care Time/CCT Total # of Minutes Spent Total Time Spent with Patient: Total time spent is greater than 50% in coordination of care (as documented) at patient's floor/unit and/or counseling patient: Coding Level of Care Code 43133 Subseq Hosp Care Lvl 2 Diagnoses PAD (peripheral artery disease) I73.9
[2021-08-15] MEDS: LEVOTHYROXINE SODIUM 150 MCG TABLET PO SCH (05:52)
[2021-08-15] MEDS: METOPROLOL TARTRATE 25 MG TAB PO SCH ×2 (07:41→21:39)
[2021-08-15] MEDS: CLOPIDOGREL BISULFATE 75 MG TAB PO SCH (07:41)
[2021-08-15] MEDS: ADVANCED PROBIOTIC 1250 MG CAPSULE PO SCH (07:41)
[2021-08-15] MEDS: PANTOprazole 40 MG TAB PO SCH ×2 (07:42→21:38)
[2021-08-15] MEDS: TRIAMCINOLONE ACET NASAL SPRAY 10.8ML BTL NAE SCH (07:42)
[2021-08-15] MEDS: ASPIRIN 81 MG ECTAB PO SCH (07:42)
[2021-08-15] MEDS: HEPARIN SOD 5,000 UNIT/0.5 ML VIAL SQ SCH ×2 (07:42→21:41)
[2021-08-15] MEDS: BENZONATATE 100 MG CAPSULE PO SCH ×3 (07:49→21:37)
[2021-08-15] MEDS: INSULIN ASPART PER UNIT SC SCH ×4 (08:27→21:54)
--- NOTE | 2021-08-15 09:39 | Consultation ---
Date of Consultation August 15, 2021 Assessment & Plan (1) End-stage renal disease on hemodialysis: Pt with fully functioning RUE brachiobasilic AVF for HD access and no longer requires permcath. Nephrology requesting removal of permcath. Discussed with Dr Morris, planning on permcath removal in OR tomorrow, 08/16. Procedure, risks, benefits, and alternatives discussed with pt by myself at Dr Morris's request. Pt is agreeable. Patient was seen, examined, and chart reviewed. Agree with exam and treatment plan of the Vascular PA. This is an established patient of our group for her vascular occlusive disease as well as her end stage renal disease. Her fistula is functioning well. We will plan on permcath removal tomorrow. Thank you very much for letting us participate in the care of this patient. History of Present Illness Reason for Consultation: ESRD, permcath removal Attending Physician: Cora Herrera MD History of Present Illness 86 yo f with multiple medical problems, including afib/flutter, ESRD on HD, metastatic breast ca, DMII, gout, pulmonary htn, anemia, GERD, CHF, CAD, hypothyroidism, HARSHAD, admitted with GI bleed, seen in consultation today for removal of permcath. Pt followed by Dr Morris for many years regarding carotid stenosis, and, more recently, dialysis access. She had RUE brachiobasilic vein AVF creation, then underwent basilic vein transposition procedure in May 2021. She has been on HD since 05/23 via permcath d/t ARF. She was released to use her AVF for HD in June, and pt states it has been working well. Nephrology has requested removal of her permcath, as it is no longer required for HD. Pt does admit a chronic cough, as well as a LLE posterior leg ulcer that she states has been present for 2-3 weeks. States she had been elevating her L foot d/t edema and pain. States it feels better when elevated. Pt s/p LLE angio with intervention by Dr Minaya last week after arterial US demonstrated significant PAD and THELMA of 0.4. Pt denies ORTIZ, fever, chest pain, SOB, abd pain, N/V, rest pain, claudication, other complaints. Allergies Allergy/AdvReac Type Severity Reaction Status Date / Time cat dander Allergy Intermediate itching Verified 07/29/21 19:50 eyes, blisters pseudoephedrine AdvReac Intermediate Hallucinati Verified 07/29/21 19:50 ons hydroxyzine AdvReac Mild hallucinati Verified 07/29/21 19:50 ons Home Medications Medication Instructions Recorded Confirmed Type albuterol sulfate 1.25 mg/3 mL 1.25 mg INH Q6H PRN #90 ml 12/02/17 07/29/21 Rx solution for nebulization clopidogrel 75 mg tablet (Plavix) 75 mg PO QAM #90 tab 12/11/18 07/29/21 History fluticasone 232 mcg-salmeterol 14 1 puffs INHALATION QPM #1 ea 12/11/18 07/29/21 History mcg/actuation breath activated powdr (AirDuo RespiClick) albuterol sulfate 90 mcg/actuation 2 puffs INHALATION Q4H PRN #1 gm 02/18/19 07/29/21 History aerosol inhaler coenzyme Q10 100 mg capsule 100 mg PO QAM cap 02/18/19 07/29/21 History denosumab 120 mg/1.7 mL (70 mg/mL) 120 mg SUBCUT MONTHLY ml 02/18/19 07/29/21 History subcutaneous solution (Xgeva) docusate sodium 100 mg capsule 100 mg PO HS cap 02/18/19 07/29/21 History exemestane 25 mg tablet (Aromasin) 25 mg PO QAM tab 02/18/19 07/29/21 History isosorbide mononitrate 120 mg 120 mg PO QAM #90 tab 02/18/19 07/29/21 History tablet,extended release 24 hr nitroglycerin 0.4 mg sublingual 0.4 mg SL Q5M PRN #25 tab 02/18/19 07/29/21 History tablet pantoprazole 40 mg tablet,delayed 40 mg PO QAM 02/10/20 07/29/21 History release levothyroxine 150 mcg tablet 150 mcg PO QAM 08/23/20 07/29/21 History pramipexole 0.25 mg tablet 0.25 mg PO HS 08/23/20 07/29/21 History (Mirapex) febuxostat 40 mg tablet 40 mg PO QAM 10/05/20 07/29/21 History famotidine 20 mg tablet (Acid 2 mg PO QPM tab 07/06/21 07/29/21 History Seedling Puller (famotidine)) apixaban 2.5 mg tablet (Eliquis) 2.5 mg PO BID 07/29/21 07/29/21 History atorvastatin 10 mg tablet 10 mg PO HS 07/29/21 07/29/21 History benzonatate 100 mg capsule 100 mg PO TID PRN 07/29/21 07/29/21 History bumetanide 2 mg tablet 2 mg PO QAM 07/29/21 07/29/21 History colchicine 0.6 mg tablet 0.6 mg PO BID PRN 07/29/21 07/29/21 History insulin glargine 100 unit/mL (3 25 unit SUBCUT DAILY 07/29/21 07/29/21 History mL) subcutaneous pen (Lantus Solostar U-100 Insulin) melatonin 10 mg capsule 10 mg PO HS PRN 07/29/21 07/29/21 History Patient History Medical History Aspiration, chronic pulmonary Following with ENT and GI, 07/2020 hospitalization for PNA following EGD suspected aspiration Asthma Controlled per pt, rescue inhaler use last several mos ago Breast cancer 2005- left mastectomy+ chemo and XRT with recurrence of breast CA to RT 4th & 5th ribs (oral/injectable medication) Left upper extremity restriction per pt CAD (coronary artery disease) 2 stents-LAD and D1 HORACE, July 2015. Follows with [facility]. Chronic anticoagulation Chronic diastolic (congestive) heart failure Follows with [facility], stable per note and pt-chronically sleeps in recliner Diabetes mellitus IDDM, controlled and stable per pt Dysphagia Occasional dysphagia and coughing with swallowing pills, improved without clear cause per pt. Pt denies re-visiting recommended EGD-following with PCP End stage renal disease End-stage renal disease on hemodialysis Fistula Right arm not using at present and needs further surgery GERD (gastroesophageal reflux disease) Controlled, stable per pt Hemodialysis patient Dialysis M,W,F- [place] Using temporary cath in left shoulder Hypertension Controlled, stable per pt Hypothyroidism Port-A-Cath in place Rt chest Pulmonary hypertension Mild per 05/04/21 ECHO- RVSP 39mmHg; follows with [facility] Rib lesion Bony metastasis per bone scan, pt states is on oral and injectable tx and following with PCP Sleep apnea No current device use Urinary leakage Surgical History History of appendectomy History of breast biopsy History of cardiac cath 2017 -2 stents-follows with [facility] History of carpal tunnel release of both wrists History of colonoscopy History of heart artery stent X 2 (2017) History of left mastectomy pt reports LUE restriction History of tonsillectomy and adenoidectomy History of total abdominal hysterectomy and bilateral salpingo-oophorectomy Family History Father Myocardial infarction Heart disease Mother Hypertension Other No family history of adverse response to anesthesia No family history of bleeding disorder Social History Smoking Status: Never smoker Second Hand Exposure: No; Hx Alcohol Use: No Hx Substance Use: No Preferred Language: Setswana Communication Ability: Effective Cruller Maker Required: No Beliefs That Will Affect Care: None marital status: / Current Living Situation: Alone Current Living Situation Comment: FAMILY COMES MULTIPLE TIMES PER DAY current occupational status: retired 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 How many Children do You have: 3 How many Children do You have Comment: 4 sons - one suffered a broken neck during wrestling practice, became quadraplegic and 6 years later Other Information That Helps Us Care for You: No other: One son is MD ([employer] [facility] [employer] [facility] in [place]) Feels Safe at Home: Yes Safety Concerns: Feels Safe At This Time Assistive Devices: Cane and CPAP Review of Systems Review of Systems: All systems reviewed & are unremarkable except as noted in HPI & below Physical Exam Constitutional: WD/WN, vitals as above + ill appearing (chronically), cooperative and comfortable; not in distress Neck: trachea midline Respiratory: + cough; no respiratory distress Auscultation: lungs clear to auscultation bilaterally and + diminished lung sounds Cardiovascular: Rate/Rhythm: + irregularly irregular Vessels: + carotid bruit, femoral pulses present, posterior tibial pulses present (LLE nonpalpable, RLE +1), dorsalis pedis pulses present (LLE +1, RLE +2) and radial pulses present; + abnormal peripheral pulses Extremities: + AV fistula (RUE AVF +thrill/bruit); no edema Gastrointestinal (Abdomen): Inspection/Auscultation: abdomen normal to inspection and normal bowel sounds Percussion/Palpation: abdomen soft; abdomen nontender Musculoskeletal: no cyanosis or clubbing, extremities motor strength 5/5 Skin: no rashes, warm and dry + ulcer (L posterior lower leg, dressing in place) Neurologic: moves all extremities and awake; no focal motor deficits and not confused Psychiatric: A+Ox3, euthymic affect Results & Data ([facility]) Vital Signs (Past 12 Hours) Vital Signs Temp Pulse Pulse Resp BP Pulse Ox 08/15/21 07:02 36.4 C L 75 16 102/61 95 08/15/21 01:08 96 08/14/21 21:25 36.4 C L 80 18 110/64 97
--- NOTE | 2021-08-15 10:11 | Nephrology Progress Note ---
Date of Service August 15, 2021 Assessment & Plan (1) End-stage renal disease on hemodialysis: (2) Upper GI bleed: (3) Coronary disease: (4) Edema of left upper arm: Plan: ESRD on HD, admitted with upper GI bleeding, stabilized. -- Plan for dialysis tomorrow morning and then she can have time dialysis catheter removed in the afternoon. -- received ROHITH on 08/14/21. -- Dose medications for GFR less than 10, left arm nephrology precaution will follow. Admission and Anticipated Discharge Date Admission Date: July 29, 2021 Subjective Emily was seen and examined this morning. No overnight events, reports feeling better, denies SOB, CP, F/C. BP stable. Had HD yesterday, AVF has been in use, working. Review of Systems Review of Systems: Detail ROS was unremarkable. Physical Exam Constitutional: WD/WN, vitals as above no acute distress Respiratory: no respiratory distress Auscultation: lungs clear to auscultation bilaterally Cardiovascular: Rate/Rhythm: regular rate and regular rhythm Extremities: + AV fistula (with thrill and bruit); no edema Skin: no rashes Neurologic: no focal motor deficits and not confused Psychiatric: Orientation: alert and oriented x 3 Results & Data ([facility]) Vital Signs (Past 12 Hours) Vital Signs Temp Pulse Resp BP Pulse Ox 08/15/21 07:02 36.4 C L 75 16 102/61 95 08/15/21 01:08 96 PG Care Time/CCT Total # of Minutes Spent Total Time Spent with Patient: Total time spent is greater than 50% in coordination of care (as documented) at patient's floor/unit and/or counseling patient: Coding Level of Care Code 57855 Subseq Hosp Care Lvl 3 Diagnoses End-stage renal disease on hemodialysis N18.6; Z99.2 Upper GI bleed K92.2 Coronary disease I25.10 Edema of left upper arm R60.0
--- NOTE | 2021-08-15 13:45 | Hospitalist Progress Note ---
Date of Service August 15, 2021 Assessment & Plan (1) Ulcer of left heel: Plan: Achilles region. 08/01/21 culture with MSSA. Previously on keflex, then Unasyn restarted on 08/08 due to low-grade fever & worsening appearance of the ulcer. Appearance of ulcer continues to improve with resolution of purulent drainage. No surrounding cellulitis. Repeat wound cx with MSSA; no new pathogens. Appreciate Dr Minaya' intervention 08/11/21 - s/p popliteal & TRAFFIC ENGINEER angioplasty. There is a 2nd tiny ulceration over calcaneal region. Cover the 2nd ulcer with optifoam. continue waffle boots. d/w wound care nurse for any additional recommendations-she thought it sounded similar to previous so likely does not need debridement. Orthopedics (Dr Hernandez, [facility]) did see in consult earlier this admission. If the ulcer needs debridement re-consult Dr Hernandez. Continue plavix and aspirin for one month as per Cardio, but if restarting Eliquis for Aflutter, then Cardio recommends dc ASA Continue lipitor. Continue pain meds prn. Received 7 days of IV unasyn and now on PO keflex renally dosed through last day tx 08/21 (2) Upper GI bleed: Plan: Suspected, at time of admission. Required 2 units PRBCs for lowest Hb of 7.9. H/H stable since then. Seen by [facility] GI - endoscopy deferred. Remains on protonix BID. Eliquis remains on hold-can resume once HD catheter removed Plavix restarted 08/02/21. Remains on aspirin 81mg daily but stop ASA once ELqiuis starts Heparin SC for DVT proph added and tolerating such without any signs of GI bleeding. (3) Coronary disease: Plan: HORACE to LAD and D1 07/2015. 07/30/2021 echo: Normal LV SF, EF 55-60%, no wall motion abnormalities. Continue Plavix 75 mg every morning and atorvastatin 10 mg daily. Imdur on hold due to low BPs. High-sensitivity troponin peaked at 745 -- this was likely 2nd to myocardial demand ischemia rather than ACS. (4) End-stage renal disease on hemodialysis: Plan: Appreciate [facility] Nephrology assistance for HD needs. Schedule M/W/F. Volume status acceptable. Patient's right arm AVF is working well. Plan to remove HD perm cath tomorrow with Vascular (5) Chronic cough: Plan: Present for 2+ years. Has seen pulmonary, ENT and GI for such. Is not on TANVIR or ARB. Previous laryngoscopy in 2020 with supraglottic secretions - aspiration? reflux? post-nasal drip? Some concern of neurogenic cough vs irritative larynx syndrome vs other (cough worse when talking). Previous PFTs with NO obstruction - moderate restriction. Cont atrovent HFA 2 puffs qid PRN. Cont nasacort daily. Cont Tessalon 200mg TID but make prn since tessalon could be causing altered mentation as it is a weak opioid (6) Atrial flutter with rapid ventricular response: Plan: a.fib/flutter. converted to NSR earlier this week. NSR since. examines in NSR once again today. cont metoprolol 12.5mg BID. Recent Eliquis use now on hold due to concern of #2 but suspect we can resume such soon, especially if no debridement is needed of the L achilles ulceration. (7) Confusion and disorientation: Plan: Acute metabolic encephalopathy in setting of underlying dementia/cognitive impairment. Ongoing. Has good days & bad days with respect to mentation. Cont supportive care. make tessalon prn continue to treat infection get out of bed (8) Diabetes: Plan: Hba1C 5.5% Had lows over the weekend - resolved with HOLDING LANTUS. Cont novolog SSI (9) Aspiration, chronic pulmonary: Plan: per records. multiple swallow evals in the past by speech therapy. no issues at this time. (10) Breast cancer: Plan: noted. with mets to ribs based on imaging 04/2021. (11) Dysphagia: Plan: see #9 above (12) Hypothyroidism: Plan: TSH 06/2021 ~20. compliance outside the hospital? Since compliance may have been an issue will leave levothyroxine dose at 150mcg/day and recheck TSH in 4-6 weeks. (13) PAD (peripheral artery disease): Plan: s/p b/l LE arteriogram by Dr Minaya 08/11/21 RLE a-gram wnl. LLE a-justin - popliteal artery and TRAFFIC ENGINEER occlusions s/p angioplasty by Dr Minaya. No stents. Cont plavix, asa, statin. Once eliquis is resumed (resume such if no debridement is needed of L achilles region ulcer) then stop asa and just cont plavix. Plan: pt's son, Dr Narvaez, who practices geriatric medicine in [place] he is aware of results of arteriogram dispo - [facility] later this week once bed is available and after HD catheter pulled-likely Admission and Anticipated Discharge Date Admission Date: July 29, 2021 Subjective Pt confused, tired. Denies pain. Isn't able to tell me much otherwise. RN reports nothing out of the ordinary for her as this is my first time seeing her. Review of Systems Review of Systems: All systems reviewed & are unremarkable except as noted in HPI & below Physical Exam Constitutional: WD/WN, vitals as above Eyes: + anicteric sclerae Neck: trachea midline, no thyromegaly Respiratory: normal respiratory effort, lungs clear to auscultation Cardiovascular: RRR, no murmur, no edema Chest (Breasts): Chest: normal inspection of chest Gastrointestinal (Abdomen): normal bowel sounds, soft, nontender, no hepatosplenomegaly Musculoskeletal: Extremities: extremities normal to inspection; no cyanosis and no clubbing Skin: + lesion (left leg wrapped,not removed) Neurologic: moves all extremities and awake; no focal motor deficits Psychiatric: Orientation: alert, oriented to person and oriented to place Lymphatic: no lymphedema Results & Data Results & Data ([facility]) Vital Signs (Past 12 Hours) Vital Signs Temp Pulse Resp BP Pulse Ox 08/15/21 07:02 36.4 C L 75 16 102/61 95 Laboratory Results labs reviewed PG Care Time/CCT Total # of Minutes Spent Total Time Spent with Patient: Total time spent is greater than 50% in coordination of care (as documented) at patient's floor/unit and/or counseling patient: Coding Level of Care Code 24210 Subseq Hosp Care Lvl 2 Diagnoses Ulcer of left heel L97.429 Upper GI bleed K92.2 Coronary disease I25.10 End-stage renal disease on hemodialysis N18.6; Z99.2 Chronic cough R05 Atrial flutter with rapid ventricular response I48.92 Confusion and disorientation R41.0 Diabetes E11.9 Aspiration, chronic pulmonary T17.908A Encounter type: initial encounter Breast cancer C50.919 Dysphagia R13.10 Hypothyroidism E03.9 Hypothyroidism type: unspecified PAD (peripheral artery disease) I73.9 (1) Hypothyroidism Hypothyroidism type: unspecified Qualified Code(s): E03.9 - Hypothyroidism, unspecified (2) Aspiration, chronic pulmonary Encounter type: initial encounter Qualified Code(s): T17.908A - Unspecified foreign body in respiratory tract, part unspecified causing other injury, initial encounter
[2021-08-15] MEDS: cephALEXin 500 MG CAP PO SCH (15:12)
[2021-08-15] MEDS: DOCUSATE SODIUM 100 MG CAP PO SCH (21:30)
[2021-08-15] MEDS: FAMOTIDINE 20 MG TAB PO SCH (21:37)
[2021-08-15] MEDS: ATORVASTATIN 10 MG TAB PO SCH (21:38)
[2021-08-15] MEDS: PRAMIPEXOLE DIHYDROCHLO 0.25 MG TAB PO SCH (21:40)
[2021-08-15] MEDS: FLUTICASONE/VILANTEROL 200/25MCG 14 PUFFS/INHALER INH SCH (21:40)
[2021-08-16] MEDS ORDERED: Nursing to Pharmacy Communication SCH ×2 (04:30→17:00)
[2021-08-16] MEDS: INSULIN ASPART PER UNIT SC SCH ×4 (05:58→20:38)
[2021-08-16] MEDS: LEVOTHYROXINE SODIUM 150 MCG TABLET PO SCH (06:02)
[2021-08-16 06:17] LABS: Hemoglobin 11.5 g/dL (12.0-16.0); Mean Corpuscular Hemoglobin 30.2 pg (25-34); Mean Corpuscular Hgb Conc 31.9 g/dL (32-36); Mean Corpuscular Volume 94.5 fL (80-100); Mean Platelet Volume 11.2 fL (7.4-10.4); Platelet Count 305 K/uL (130-400); RDW Coefficient of Variation 17.8 % (11.5-14.5); RDW Standard Deviation 61.2 fL (36.4-46.3); Red Blood Count 3.81 M/uL (4.2-5.4); White Blood Count 11.37 K/uL (4.8-10.8)
[2021-08-16] MEDS: METOPROLOL TARTRATE 25 MG TAB PO SCH ×2 (08:29→20:07)
[2021-08-16] MEDS ORDERED: BENZONATATE 100 MG CAPSULE PO PRN (09:11)
[2021-08-16] MEDS: BENZONATATE 100 MG CAPSULE PO SCH (09:31)
[2021-08-16] MEDS: TRIAMCINOLONE ACET NASAL SPRAY 10.8ML BTL NAE SCH (09:51)
[2021-08-16] MEDS: ASPIRIN 81 MG ECTAB PO SCH (09:52)
[2021-08-16] MEDS: CLOPIDOGREL BISULFATE 75 MG TAB PO SCH (09:52)
[2021-08-16] MEDS: PANTOprazole 40 MG TAB PO SCH ×2 (09:52→20:08)
[2021-08-16] MEDS: HEPARIN SOD 5,000 UNIT/0.5 ML VIAL SQ SCH (10:02)
[2021-08-16] MEDS: ADVANCED PROBIOTIC 1250 MG CAPSULE PO SCH (10:03)
--- NOTE | 2021-08-16 10:35 | Nephrology Progress Note ---
Date of Service August 16, 2021 Assessment & Plan (1) End-stage renal disease on hemodialysis: (2) Upper GI bleed: (3) Coronary disease: (4) Edema of left upper arm: Plan: ESRD on HD, admitted with upper GI bleeding, stabilized. -- Plan for removal of tunneled dialysis catheter this morning as AV fistula has been in use for last few treatment and function well. she will have dialysis in the afternoon. -- received ROHITH on 08/14/21. -- Dose medications for GFR less than 10, left arm nephrology precaution will follow. Admission and Anticipated Discharge Date Admission Date: July 29, 2021 Beka Diaz was seen and examined this morning. No overnight events, denies SOB, CP, F/C. BP stable. AVF has been in use, working. Review of Systems Review of Systems: Detail ROS was unremarkable. Physical Exam Constitutional: WD/WN, vitals as above no acute distress Eyes: + anicteric sclerae Respiratory: no respiratory distress Auscultation: lungs clear to auscultation bilaterally Cardiovascular: Rate/Rhythm: regular rate and regular rhythm Extremities: + AV fistula (with thrill and bruit); no edema Skin: no rashes Neurologic: no focal motor deficits Psychiatric: Orientation: alert and oriented x 3 Results & Data ([facility]) Vital Signs (Past 12 Hours) Vital Signs Temp Pulse Resp BP Pulse Ox 08/16/21 07:30 36.7 C 80 18 102/61 95 PG Care Time/CCT Total # of Minutes Spent Total Time Spent with Patient: Total time spent is greater than 50% in coordination of care (as documented) at patient's floor/unit and/or counseling patient: Coding Level of Care Code 39129 Subseq Hosp Care Lvl 3 Diagnoses End-stage renal disease on hemodialysis N18.6; Z99.2 Upper GI bleed K92.2 Coronary disease I25.10 Edema of left upper arm R60.0
--- NOTE | 2021-08-16 11:44 | History & Physical Bridge Note ---
Date of Service August 16, 2021 History & Physical Bridge Note Patient for removal of her permcath today. I have discussed the risks options and benefits of the procedure with the patient. The patient understands the risks options and benefits and agrees to the procedure. I have examined the patient, reviewed the History & Physical and in the interval since the performance of the History & Physical I have noted the following changes of clinical significance: no changes noted
[2021-08-16] MEDS ORDERED: fentaNYL citrate 100 MCG/2 ML VIAL ONE (12:42)
[2021-08-16] MEDS ORDERED: MIDAZOLAM HCL 1 MG/ML 2ML VIAL ONE (12:42)
[2021-08-16] MEDS ORDERED: LIDOCAINE 1% LOCAL 20 ML VIAL ONE (12:43)
--- NOTE | 2021-08-16 12:43 | Pre Anesthesia Assessment ---
Date of Service August 16, 2021 Pre Sedation Assessment Vital Signs Temp Pulse Pulse Pulse Resp BP Pulse Ox 08/16/21 12:40 36.5 C 95 H 20 101/60 100 08/16/21 12:03 36.5 C 89 16 109/65 95 08/16/21 07:30 36.7 C 80 18 102/61 95 08/15/21 21:50 36.4 C L 78 22 131/72 95 08/15/21 21:36 76 103/58 L 08/15/21 14:46 36.5 C 73 16 107/64 94 Cardiovascular RRR, no murmur, no edema Respiratory normal respiratory effort, lungs clear to auscultation Pre-Sedation Airway Assessment Smoking Status: Never smoker Hx Sleep Apnea: No Short, Thick Neck: No Thyromental Distance: > or= 3.5 Finger Breadths Oral Cavity: + WNL Mallampati Class: IV ASA: ASA3 NPO Status Date of Last Intake of Fluids: 08/15/21 Time of Last Intake of Fluids: 23:55 Last Oral Intake of Fluids Comment: sips with med Date of Last Intake of Solid Food: 08/15/21 Time of Last Intake of Solid Foods: 23:55 Procedure Planning Contraindications for Sedation: none Current Medications Reviewed: Yes Notes The planned sedation has been discussed with the patient. Informed Consent was obtained. I have identified the patient, determined the appropriateness of sedation and have assessed the patient immediately prior to the procedure. All medicine(s) and interventions are by my order.
--- NOTE | 2021-08-16 13:17 | Operative Report ---
Post Operative Report Pre & Post Diagnosis Operation Date: 08/11/21 10:00 <No data on this case meets the specified criteria> Operation Date: 08/16/21 13:00 Pre-Op Diagnosis: Functioning Fistula Post-Op Diagnosis: Functioning Fistula I identified the patient and participated in the time-out.: Yes Procedure Operation Date: 08/11/21 10:00 Actual Procedures p Angio Extremity Bilateral - Wily Minyaa MD p Femoral Popliteal Balloon - MD jennie Diggs Placement Art Occlusive Device - Wily Minaya MD s SC Select Cath ALEP 3rd Order - MD jennie Diggs Ultrasound Vascular Access - MD jennie Diggs Tibial Peroneal Balloon - Wily Minaya MD Operation Date: 08/16/21 13:00 Actual Procedures p Perm Catheter Removal(Left) - Yuan Morris MD Surgeon Yuan Morris MD Metal Machinist Roxana Blair MD Estimated Blood Loss 0 Findings Consistent with Post-Op Diagnosis Good hemostasis. Specimens none Anesthesia Type Local Indications 86 yo F with fully functioning RUE brachiobasilic AVF for HD access and no longer requires permcath. Nephrology requesting removal of permcath. Patient consented for the procedure. Description of Procedure The patient was taken to the angio suite and placed in the supine position. The left side of the neck, chest wall and catheter were prepped and draped in a sterile manner. Local anesthesia was then accomplished. Using sharp and blunt dissection, the cuff of the permcath was freed up from the surrounding fibrous tissue. The permcath and cuff were completely removed. Pressure was then applied and adequate hemostasis was obtained. A sterile dressing was then applied. The patient left the angio suite in good condition and tolerated the procedure well. I attest to the content of the Intraoperative Record and any orders documented therein. Any exceptions are noted below.
--- NOTE | 2021-08-16 13:26 | Post Operative Brief Note ---
Immediate Post Op Note v1 Date of Surgery August 16, 2021 Pre & Post Diagnosis Operation Date: 08/11/21 10:00 <No data on this case meets the specified criteria> Operation Date: 08/16/21 13:00 Pre-Op Diagnosis: Functioning Fistula Post-Op Diagnosis: Functioning Fistula I identified the patient and participated in the time-out.: Yes Procedure Operation Date: 08/11/21 10:00 Actual Procedures p Angio Extremity Bilateral - Wily Minaya MD p Femoral Popliteal Balloon - Wily Minaya MD s Placement Art Occlusive Device - Wily Minaya MD s SC Select Cath ALEP 3rd Order - Wily Minaya MD s Ultrasound Vascular Access - Wily Minaya MD s Tibial Peroneal Balloon - Wily Minaya MD Operation Date: 08/16/21 13:00 Actual Procedures p Perm Catheter Removal(Left) - Yuan Morris MD Surgeon Yuan Morris MD Protein Scientist Roxana Blair MD Estimated Blood Loss 0 Findings Consistent with Post-Op Diagnosis Anesthesia Type Local Complications none Disposition Accompanied Patient To Recovery: No Disposition: Recovery Room
--- NOTE | 2021-08-16 18:14 | Hospitalist Progress Note ---
Date of Service August 16, 2021 Assessment & Plan (1) Ulcer of left heel: Plan: Achilles region. 08/01/21 culture with MSSA. Previously on keflex, then Unasyn restarted on 08/08 due to low-grade fever & worsening appearance of the ulcer. Appearance of ulcer continues to improve with resolution of purulent drainage. No surrounding cellulitis. Repeat wound cx with MSSA; no new pathogens. Appreciate Dr Minaya' intervention 08/11/21 - s/p popliteal & CARBIDE TOOL DIE MAKER angioplasty. There is a 2nd tiny ulceration over calcaneal region. Cover the 2nd ulcer with optifoam. continue waffle boots. d/w wound care nurse for any additional recommendations-she thought it sounded similar to previous so likely does not need debridement. Orthopedics (Dr Hernandez, [facility] [place] [place]) did see in consult earlier this admission. If the ulcer needs debridement re-consult Dr Hernandez. I plan to see the wound tomorrow morning when the nurse changes the dressing WBC count slightly up today to 11, remains afebrile Continue plavix and aspirin for one month as per Cardio, but if restarting Eliquis for Aflutter, then Cardio recommends dc ASA-we will go ahead and restart her Eliquis for tomorrow Continue lipitor. Continue pain meds prn. Received 7 days of IV unasyn and now on PO keflex renally dosed through last day tx 08/21 (2) Upper GI bleed: Plan: Suspected, at time of admission.Had melanotic stools in the ER Required 2 units PRBCs for lowest Hb of 7.9. H/H stable since then. Seen by [facility] [place] [place] GI - endoscopy deferred. Remains on protonix 40 Mg p.o. BID. Eliquis remains on hold-can resume once HD catheter removed-restart for tomorrow Plavix restarted 08/02/21. Remains on aspirin 81mg daily but stop ASA once ELqiuis starts Heparin SC for DVT proph added and tolerating such without any signs of GI ble eding.-We will DC heparin once Eliquis starts tomorrow (3) Coronary disease: Plan: HORACE to LAD and D1 07/2015. 07/30/2021 echo: Normal LV SF, EF 55-60%, no wall motion abnormalities. Continue Plavix 75 mg every morning and atorvastatin 10 mg daily. Imdur on hold due to low BPs. DC aspirin now that restarting Eliquis High-sensitivity troponin peaked at 745 -- this was likely 2nd to myocardial demand ischemia rather than ACS. (4) End-stage renal disease on hemodialysis: Plan: Appreciate [facility] [place] [place] Nephrology assistance for HD needs. Schedule M/W/F. Volume status acceptable. Patient's right arm AVF is working well. Now status post removal of left-sided PermCath on 08/16 (5) Chronic cough: Plan: Present for 2+ years. Has seen pulmonary, ENT and GI for such. Is not on TANVIR or ARB. Previous laryngoscopy in 2020 with supraglottic secretions - aspiration? reflux? post-nasal drip? Some concern of neurogenic cough vs irritative larynx syndrome vs other (cough worse when talking). Previous PFTs with NO obstruction - moderate restriction. Cont atrovent HFA 2 puffs qid PRN. Cont nasacort daily. Was on Tessalon 200mg TID but made this prn since tessalon could be causing alte red mentation as it is a weak opioid-mentation seems much improved on 08/16 (6) Atrial flutter with rapid ventricular response: Plan: a.fib/flutter. converted to NSR last week NSR since. examines in NSR once again today. cont metoprolol 12.5mg BID. Eliquis was on hold since admission due to GI bleed, but hemoglobin remained stable-restart Eliquis tomorrow (7) Confusion and disorientation: Plan: Acute metabolic encephalopathy in setting of underlying dementia/cognitive impairment. Ongoing. Has good days & bad days with respect to mentation. Much improved on 08/16 after discontinuing scheduled Tessalon Perles Cont supportive care. continue to treat infection Encouraged her to get out of bed with assistance (8) Diabetes: Plan: Hba1C 5.5% Had lows over the weekend - resolved with HOLDING LANTUS. Cont novolog SSI (9) Aspiration, chronic pulmonary: Plan: per records. multiple swallow evals in the past by speech therapy. no issues at this time. (10) Breast cancer: Plan: noted. with mets to ribs based on imaging 04/2021. Follow-up with oncology as an outpatient (11) Dysphagia: Plan: see #9 above (12) Hypothyroidism: Plan: TSH 06/2021 ~20. compliance outside the hospital? Since compliance may have been an issue will leave levothyroxine dose at 150mcg/day and recheck TSH in 4-6 weeks. (13) PAD (peripheral artery disease): Plan: s/p b/l LE arteriogram by Dr Minaya 08/11/21 RLE a-gram wnl. LLE popeye-gram - popliteal artery and CARBIDE TOOL DIE MAKER occlusions s/p angioplasty by Dr Minaya. No stents. Cont plavix, asa, statin. Once eliquis is resumed (resume such if no debridement is needed of L achilles region ulcer) then stop asa and just cont plavix. Plan: pt's son, Brice, who practices geriatric medicine in [place]-I will give him a call with an update this evening he is aware of results of arteriogram dispo - [facility] later this week once bed is available and after HD catheter pulled-likely Admission and Anticipated Discharge Date Admission Date: July 29, 2021 Anticipated date of discharge: 08/17/21 Subjective Patient was out of her room all day-first went down for hemodialysis catheter removal and then went on to dialysis. I saw her towards the end of dialysis and she was much more awake and alert and oriented than yesterday. She did not have any complaints. No chest pain or shortness of breath, no pain anywhere. Review of Systems Review of Systems: All systems reviewed & are unremarkable except as noted in HPI & below Physical Exam Constitutional: WD/WN, vitals as above Eyes: + anicteric sclerae Neck: trachea midline, no thyromegaly Respiratory: normal respiratory effort, lungs clear to auscultation Cardiovascular: RRR, no murmur, no edema Chest (Breasts): Chest: normal inspection of chest Gastrointestinal (Abdomen): normal bowel sounds, soft, nontender, no hepatosplenomegaly Musculoskeletal: Extremities: extremities normal to inspection; no cyanosis and no clubbing Skin: no rashes, warm and dry + lesion (left leg wrapped,not removed) Neurologic: moves all extremities and awake; no focal motor deficits Psychiatric: Orientation: alert, oriented to person and oriented to place Lymphatic: no lymphedema Results & Data Results & Data ([facility]) Vital Signs (Past 12 Hours) Vital Signs Temp Pulse Pulse Pulse Resp BP BP 08/16/21 17:40 95 H 121/55 L 05/18/22 17:20 96 H 112/59 L 08/16/21 17:00 95 H 117/52 L 08/16/21 16:40 95 H 110/58 L 08/16/21 16:20 96 H 110/72 08/16/21 16:00 94 H 113/54 L 08/16/21 15:40 95 H 99/56 L 08/16/21 15:20 94 H 101/53 L 08/16/21 15:00 94 H 105/55 L 08/16/21 14:39 94 H 120/63 08/16/21 14:20 36.4 C L 94 H 08/16/21 13:16 97 H 16 117/72 08/16/21 13:15 94 H 16 121/64 08/16/21 13:10 94 H 16 121/64 08/16/21 13:05 94 H 16 111/55 L 08/16/21 13:00 95 H 16 118/59 L 08/16/21 12:40 36.5 C 95 H 20 101/60 08/16/21 12:03 36.5 C 89 16 109/65 08/16/21 07:30 36.7 C 80 18 102/61 Pulse Ox 08/16/21 17:40 08/16/21 17:20 08/16/21 17:00 08/16/21 16:40 08/16/21 16:20 08/16/21 16:00 08/16/21 15:40 08/16/21 15:20 08/16/21 15:00 08/16/21 14:39 08/16/21 14:20 08/16/21 13:16 97 08/16/21 13:15 97 08/16/21 13:10 99 08/16/21 13:05 98 08/16/21 13:00 98 08/16/21 12:40 100 08/16/21 12:03 95 08/16/21 07:30 95 Laboratory Results 08/16/21 08/16/21 08/16/21 Range/Units 12:08 05:57 05:57 WBC 11.37 H (4.8-10.8) K/uL RBC 3.81 L (4.2-5.4) M/uL Hgb 11.5 L (12.0-16.0) g/dL Hct 36.0 L (37-47) % MCV 94.5 (80-100) fL MCH 30.2 (25-34) pg MCHC 31.9 L (32-36) g/dL RDW Std Deviation 61.2 H (36.4-46.3) fL RDW Coeff of Oj 17.8 H (11.5-14.5) % Plt Count 305 (130-400) K/uL MPV 11.2 H (7.4-10.4) fL POC Glucose 135 H (70-99) mg/dl Phosphorus 3.5 (2.5-4.9) mg/dl 08/16/21 08/15/21 Range/Units 05:49 20:30 WBC (4.8-10.8) K/uL RBC (4.2-5.4) M/uL Hgb (12.0-16.0) g/dL Hct (37-47) % MCV (80-100) fL MCH (25-34) pg MCHC (32-36) g/dL RDW Std Deviation (36.4-46.3) fL RDW Coeff of Oj (11.5-14.5) % Plt Count (130-400) K/uL MPV (7.4-10.4) fL POC Glucose 137 H 144 H (70-99) mg/dl Phosphorus (2.5-4.9) mg/dl PG Care Time/CCT Total # of Minutes Spent Total Time Spent with Patient: Total time spent is greater than 50% in coordination of care (as documented) at patient's floor/unit and/or counseling patient: Coding Level of Care Code 43001 Subseq Hosp Care Lvl 3 Diagnoses Ulcer of left heel L97.429 Upper GI bleed K92.2 Coronary disease I25.10 End-stage renal disease on hemodialysis N18.6; Z99.2 Chronic cough R05 Atrial flutter with rapid ventricular response I48.92 Confusion and disorientation R41.0 Diabetes E11.9 Aspiration, chronic pulmonary T17.908A Encounter type: initial encounter Breast cancer C50.919 Dysphagia R13.10 Hypothyroidism E03.9 Hypothyroidism type: unspecified PAD (peripheral artery disease) I73.9 (1) Aspiration, chronic pulmonary Encounter type: initial encounter Qualified Code(s): T17.908A - Unspecified foreign body in respiratory tract, part unspecified causing other injury, initial encounter (2) Hypothyroidism Hypothyroidism type: unspecified Qualified Code(s): E03.9 - Hypothyroidism, unspecified
[2021-08-16] MEDS: cephALEXin 500 MG CAP PO SCH (18:51)
[2021-08-16] MEDS: ATORVASTATIN 10 MG TAB PO SCH (20:06)
[2021-08-16] MEDS: FAMOTIDINE 20 MG TAB PO SCH (20:06)
[2021-08-16] MEDS: DOCUSATE SODIUM 100 MG CAP PO SCH (20:06)
[2021-08-16] MEDS: PRAMIPEXOLE DIHYDROCHLO 0.25 MG TAB PO SCH (20:06)
[2021-08-16] MEDS: FLUTICASONE/VILANTEROL 200/25MCG 14 PUFFS/INHALER INH SCH (20:08)
[2021-08-17] MEDS: LEVOTHYROXINE SODIUM 150 MCG TABLET PO SCH (04:44)
[2021-08-17 06:46] LABS: Basophils # (auto) 0.12 K/uL (0-0.2); Basophils % (auto) 1.2 %; Eosinophils # (auto) 0.32 K/uL (0-0.5); Eosinophils % (auto) 3.3 %; Hemoglobin 11.5 g/dL (12.0-16.0); Immature Granulocytes # (auto) 0.04 K/uL (0.00-0.02); Immature Granulocytes % (auto) 0.4 %; Lymphocytes # (auto) 3.41 K/uL (1.2-3.4); Lymphocytes % (auto) 34.9 %; Mean Corpuscular Hemoglobin 29.5 pg (25-34); Mean Corpuscular Hgb Conc 31.1 g/dL (32-36); Mean Corpuscular Volume 94.9 fL (80-100); Mean Platelet Volume 11.2 fL (7.4-10.4); Monocytes # (auto) 0.78 K/uL (0.11-0.59); Neutrophils # (auto) 5.11 K/uL (1.4-6.5); Neutrophils % (auto) 52.2 %; Platelet Count 279 K/uL (130-400); RDW Coefficient of Variation 17.9 % (11.5-14.5); RDW Standard Deviation 61.9 fL (36.4-46.3); White Blood Count 9.78 K/uL (4.8-10.8)
[2021-08-17 07:05] LABS: BUN Creatinine Ratio 5.4 (10-20); C Reactive Protein 3.95 mg/dl (0-0.5); Calcium 7.8 mg/dl (8.5-10.1); Creatinine Clr Calc Pharmacy 12.9 ml/min; Est GFR (Non-African American) 12.9 ml/min; Magnesium 1.9 mg/dl (1.7-2.4); Potassium 3.8 mmol/L (3.5-5.1)
[2021-08-17] MEDS: PANTOprazole 40 MG TAB PO SCH ×2 (08:39→20:36)
[2021-08-17] MEDS: APIXABAN 2.5 MG TAB PO SCH ×2 (08:39→20:33)
[2021-08-17] MEDS: CLOPIDOGREL BISULFATE 75 MG TAB PO SCH (08:39)
[2021-08-17] MEDS: METOPROLOL TARTRATE 25 MG TAB PO SCH ×2 (08:40→20:35)
[2021-08-17] MEDS: ADVANCED PROBIOTIC 1250 MG CAPSULE PO SCH (08:41)
[2021-08-17] MEDS: TRIAMCINOLONE ACET NASAL SPRAY 10.8ML BTL NAE SCH (08:41)
[2021-08-17] MEDS: INSULIN ASPART PER UNIT SC SCH ×4 (08:47→20:37)
--- NOTE | 2021-08-17 10:33 | Nephrology Progress Note ---
Date of Service August 17, 2021 Assessment & Plan (1) End-stage renal disease on hemodialysis: (2) Upper GI bleed: (3) Coronary disease: (4) Edema of left upper arm: Plan: ESRD on HD, admitted with upper GI bleeding, stabilized. AV fistulas been functioning well, left IJ tunneled dialysis catheter was removed on 08/16/2021. -- Continue on Saturday, Saturday, Saturday dialysis schedule. -- received ROHITH on 08/14/21. -- Dose medications for GFR less than 10, left arm nephrology precaution will follow. Admission and Anticipated Discharge Date Admission Date: July 29, 2021 Subjective Emily was seen and examined this morning. No acute concerns, denies SOB, CP, F/C. BP stable. AVF has been in use, working. TDC was removed yesterday. Review of Systems Review of Systems: Detail ROS was unremarkable. Physical Exam Constitutional: WD/WN, vitals as above no acute distress Eyes: + anicteric sclerae ENMT: Ears: no hearing impairment Respiratory: no respiratory distress Auscultation: lungs clear to auscultation bilaterally Cardiovascular: Rate/Rhythm: regular rate and regular rhythm Heart Sounds: normal S1 and normal S2 Extremities: + AV fistula (with thrill and bruit); no edema Skin: no rashes Neurologic: no focal motor deficits and not confused Psychiatric: Orientation: alert and oriented x 3 Results & Data ([facility]) Vital Signs (Past 12 Hours) Vital Signs Temp Pulse Pulse Resp BP Pulse Ox 08/17/21 08:38 87 109/65 96 08/17/21 08:10 36.5 C 95 H 18 107/58 L 95 08/17/21 03:47 36.4 C L 96 H 19 118/63 91 08/16/21 22:57 36.3 C L 80 18 130/63 95 PG Care Time/CCT Total # of Minutes Spent Total Time Spent with Patient: Total time spent is greater than 50% in coordination of care (as documented) at patient's floor/unit and/or counseling patient: Coding Level of Care Code 49923 Subseq Hosp Care Lvl 2 Diagnoses End-stage renal disease on hemodialysis N18.6; Z99.2 Upper GI bleed K92.2 Coronary disease I25.10 Edema of left upper arm R60.0
[2021-08-17] MEDS: cephALEXin 500 MG CAP PO SCH (17:24)
--- NOTE | 2021-08-17 20:00 | Hospitalist Progress Note ---
Date of Service August 17, 2021 Assessment & Plan (1) Ulcer of left heel: Plan: Achilles region. 08/01/21 culture with MSSA. Previously on keflex, then Unasyn restarted on 08/08 due to low-grade fever & worsening appearance of the ulcer. Appearance of ulcer continues to improve with resolution of purulent drainage. No surrounding cellulitis. Repeat wound cx with MSSA; no new pathogens. Appreciate Dr Minaya' intervention 08/11/21 - s/p popliteal & NEUROSCIENCE SPECIALIST angioplasty. There is a 2nd tiny ulceration over calcaneal region. Cover the 2nd ulcer with optifoam. continue waffle boots. Wound looks improved on 08/17 from previous pictures Leukocytosis resolved, remains afebrile Cardiology recommended to continue plavix and aspirin for one month but since restarting Eliquis for Aflutter, then Cardio recommends discontinuing ASA -Continue Eliquis and Plavix -Continue lipitor. -Continue pain meds prn. Received 7 days of IV unasyn and now on PO keflex renally dosed through last day tx 08/21 (2) Upper GI bleed: Plan: Suspected, at time of admission.Had melanotic stools in the ER Required 2 units PRBCs for lowest Hb of 7.9. H/H much improved since then-now up to 11.5 was Seen by [facility] - endoscopy deferred. Remains on protonix 40 Mg p.o. BID. Eliquis was on hold-has now been resumed Plavix restarted 08/02/21. (3) Coronary disease: Plan: HORACE to LAD and D1 07/2015. 07/30/2021 echo: Normal LV SF, EF 55-60%, no wall motion abnormalities. Continue Plavix 75 mg every morning and atorvastatin 10 mg daily. Imdur on hold due to low BPs. Discontinued aspirin now that restarted Eliquis High-sensitivity troponin peaked at 745 -- this was likely 2nd to myocardial demand ischemia rather than ACS. (4) End-stage renal disease on hemodialysis: Plan: Appreciate [facility] for [facility] needs. Schedule M/W/F. Volume status acceptable. Patient's right arm AVF is working well. Now status post removal of left-sided PermCath on 08/16-surgical site left anterior chest is healing well (5) Chronic cough: Plan: Present for 2+ years. Has seen pulmonary, ENT and GI for such. Is not on TANVIR or ARB. Previous laryngoscopy in 2020 with supraglottic secretions - aspiration? reflux? post-nasal drip? Some concern of neurogenic cough vs irritative larynx syndrome vs other (cough worse when talking). Previous PFTs with NO obstruction - moderate restriction. Cont atrovent HFA 2 puffs qid PRN. Cont nasacort daily. Was on Tessalon 200mg TID but made this prn since tessalon could be causing altered mentation as it is a weak opioid-mentation seems much improved on 08/16 and 08/17 (6) Atrial flutter with rapid ventricular response: Plan: a.fib/flutter. converted to NSR last week NSR since. examines in NSR once again today. cont metoprolol 12.5mg BID. Eliquis was on hold initially due to GI bleed, but hemoglobin remained stable- restarted Eliquis on 08/16 (7) Confusion and disorientation: Plan: Acute metabolic encephalopathy in setting of underlying dementia/cognitive impairment. Ongoing. Has good days & bad days with respect to mentation. Much improved on 08/16 after discontinuing scheduled Tessalon Perles Cont supportive care. continue to treat infection Encouraged her to get out of bed with assistance (8) Diabetes: Plan: Hba1C 5.5% Had lows over the weekend - resolved with HOLDING LANTUS. Cont novolog SSI (9) Aspiration, chronic pulmonary: Plan: per records. multiple swallow evals in the past by speech therapy. no issues at this time. (10) Breast cancer: Plan: noted. with mets to ribs based on imaging 04/2021. Her son reports that she has been off of her exemestane Follow-up with oncology as an outpatient (11) Dysphagia: Plan: see #9 above (12) Hypothyroidism: Plan: TSH 06/2021 ~20. compliance outside the hospital? Since compliance may have been an issue will leave levothyroxine dose at 150mcg/day and recheck TSH in 4-6 weeks. (13) PAD (peripheral artery disease): Plan: s/p b/l LE arteriogram by Dr Minaya 08/11/21 RLElizabeth nye-justin wnl. MARLENY munson - popliteal artery and NEUROSCIENCE SPECIALIST occlusions s/p angioplasty by Dr Minaya. No stents. Cont plavix, Eliquis statin. Plan: pt's son, Dr Narvaez, who practices geriatric medicine in [place]-update him by phone on 08/16 dispo - [facility]-still awaiting insurance authorization Admission and Anticipated Discharge Date Admission Date: July 29, 2021 Subjective Patient feeling well, has no pain in the ankle. Is eating and drinking, no chest pain shortness of breath, is oriented today. Review of Systems Review of Systems: All systems reviewed & are unremarkable except as noted in HPI & below Physical Exam Constitutional: WD/WN, vitals as above Eyes: + anicteric sclerae Neck: trachea midline, no thyromegaly Respiratory: normal respiratory effort, lungs clear to auscultation Cardiovascular: RRR, no murmur, no edema Chest (Breasts): Chest: normal inspection of chest Gastrointestinal (Abdomen): normal bowel sounds, soft, nontender, no hepatosplenomegaly Musculoskeletal: Extremities: extremities normal to inspection; no cyanosis and no clubbing Skin: no rashes, warm and dry + lesion (left Achilles with 4 x 2 cm open wound with exudate, min erythema) Neurologic: moves all extremities and awake; no focal motor deficits Psychiatric: A+Ox3, euthymic affect Lymphatic: no lymphedema Results & Data Results & Data ([facility]) Vital Signs (Past 12 Hours) Vital Signs Temp Pulse Pulse Resp BP Pulse Ox 08/17/21 16:19 110/68 08/17/21 15:30 36.4 C L 82 16 93/56 L 95 08/17/21 08:38 87 109/65 96 08/17/21 08:10 36.5 C 95 H 18 107/58 L 95 Laboratory Results 08/17/21 08/17/21 08/17/21 Range/Units 17:07 11:44 07:56 WBC (4.8-10.8) K/uL RBC (4.2-5.4) M/uL Hgb (12.0-16.0) g/dL Hct (37-47) % MCV (80-100) fL MCH (25-34) pg MCHC (32-36) g/dL RDW Std Deviation (36.4-46.3) fL RDW Coeff of Jo (11.5-14.5) % Plt Count (130-400) K/uL MPV (7.4-10.4) fL Immature Gran % (Auto) % Neut % (Auto) % Lymph % (Auto) % [place] % (Auto) % Eos % (Auto) % Baso % (Auto) % Neut # (Auto) (1.4-6.5) K/uL Lymph # (Auto) (1.2-3.4) K/uL [place] # (Auto) (0.11-0.59) K/uL Eos # (Auto) (0-0.5) K/uL Baso # (Auto) (0-0.2) K/uL Immature Gran # (Auto) (0.00-0.02) K/uL Sodium (136-145) mmol/L Potassium (3.5-5.1) mmol/L Chloride (98-107) mmol/L Carbon Dioxide (21-32) mmol/L Anion Gap (3-11) BUN (6-23) mg/dl Creatinine (0.6-1.2) mg/dl Est Cr Clr Drug Dosing ml/min Est GFR ( Amer) ml/min Est GFR (Non-Af Amer) ml/min BUN/Creatinine Ratio (10-20) Glucose (70-99(Fasting)) mg/dl POC Glucose 158 H 160 H 167 H (70-99) mg/dl Calcium (8.5-10.1) mg/dl Magnesium (1.7-2.4) mg/dl C-Reactive Protein (0-0.5) mg/dl 08/17/21 08/17/21 08/16/21 Range/Units 05:37 05:37 20:26 WBC 9.78 (4.8-10.8) K/uL RBC 3.90 L (4.2-5.4) M/uL Hgb 11.5 L (12.0-16.0) g/dL Hct 37.0 (37-47) % MCV 94.9 (80-100) fL MCH 29.5 (25-34) pg MCHC 31.1 L (32-36) g/dL RDW Std Deviation 61.9 H (36.4-46.3) fL RDW Coeff of Oj 17.9 H (11.5-14.5) % Plt Count 279 (130-400) K/uL MPV 11.2 H (7.4-10.4) fL Immature Gran % (Auto) 0.4 % Neut % (Auto) 52.2 % Lymph % (Auto) 34.9 % [place] % (Auto) 8.0 % Eos % (Auto) 3.3 % Baso % (Auto) 1.2 % Neut # (Auto) 5.11 (1.4-6.5) K/uL Lymph # (Auto) 3.41 H (1.2-3.4) K/uL [place] # (Auto) 0.78 H (0.11-0.59) K/uL Eos # (Auto) 0.32 (0-0.5) K/uL Baso # (Auto) 0.12 (0-0.2) K/uL Immature Gran # (Auto) 0.04 H (0.00-0.02) K/uL Sodium 138 (136-145) mmol/L Potassium 3.8 (3.5-5.1) mmol/L Chloride 104 (98-107) mmol/L Carbon Dioxide 27 (21-32) mmol/L Anion Gap 7 (3-11) BUN 17 (6-23) mg/dl Creatinine 3.13 H (0.6-1.2) mg/dl Est Cr Clr Drug Dosing 12.9 ml/min Est GFR ( Amer) 15.0 ml/min Est GFR (Non-Af Amer) 12.9 ml/min BUN/Creatinine Ratio 5.4 L (10-20) Glucose 186 H (70-99(Fasting)) mg/dl POC Glucose 128 H (70-99) mg/dl Calcium 7.8 L (8.5-10.1) mg/dl Magnesium 1.9 (1.7-2.4) mg/dl C-Reactive Protein 3.95 H (0-0.5) mg/dl PG Care Time/CCT Total # of Minutes Spent Total Time Spent with Patient: Total time spent is greater than 50% in coordination of care (as documented) at patient's floor/unit and/or counseling patient: Coding Level of Care Code 70589 Subseq Hosp Care Lvl 2 Diagnoses Ulcer of left heel L97.429 Upper GI bleed K92.2 Coronary disease I25.10 End-stage renal disease on hemodialysis N18.6; Z99.2 Chronic cough R05 Atrial flutter with rapid ventricular response I48.92 Confusion and disorientation R41.0 Diabetes E11.9 Aspiration, chronic pulmonary T17.908A Encounter type: initial encounter Breast cancer C50.919 Dysphagia R13.10 Hypothyroidism E03.9 Hypothyroidism type: unspecified PAD (peripheral artery disease) I73.9 (1) Aspiration, chronic pulmonary Encounter type: initial encounter Qualified Code(s): T17.908A - Unspecified foreign body in respiratory tract, part unspecified causing other injury, initial encounter (2) Hypothyroidism Hypothyroidism type: unspecified Qualified Code(s): E03.9 - Hypothyroidism, unspecified
[2021-08-17] MEDS: ATORVASTATIN 10 MG TAB PO SCH (20:34)
[2021-08-17] MEDS: DOCUSATE SODIUM 100 MG CAP PO SCH (20:34)
[2021-08-17] MEDS: FLUTICASONE/VILANTEROL 200/25MCG 14 PUFFS/INHALER INH SCH (20:35)
[2021-08-17] MEDS: PRAMIPEXOLE DIHYDROCHLO 0.25 MG TAB PO SCH (20:35)
[2021-08-17] MEDS: FAMOTIDINE 20 MG TAB PO SCH (21:16)
[2021-08-17 22:07] LABS: Hepatitis BE Antibody Nonreactive; Hepatitis BE Antigen Nonreactive
[2021-08-18] MEDS: LEVOTHYROXINE SODIUM 150 MCG TABLET PO SCH (06:01)
[2021-08-18] MEDS: APIXABAN 2.5 MG TAB PO SCH ×2 (08:48→20:56)
[2021-08-18] MEDS: CLOPIDOGREL BISULFATE 75 MG TAB PO SCH (08:48)
[2021-08-18] MEDS: ADVANCED PROBIOTIC 1250 MG CAPSULE PO SCH (08:49)
[2021-08-18] MEDS: PANTOprazole 40 MG TAB PO SCH ×2 (08:49→21:24)
[2021-08-18] MEDS: TRIAMCINOLONE ACET NASAL SPRAY 10.8ML BTL NAE SCH (08:49)
[2021-08-18] MEDS: INSULIN ASPART PER UNIT SC SCH ×4 (08:54→20:55)
--- NOTE | 2021-08-18 10:08 | Nephrology Progress Note ---
Date of Service August 18, 2021 Assessment & Plan (1) End-stage renal disease on hemodialysis: (2) Upper GI bleed: (3) Coronary disease: (4) Edema of left upper arm: Plan: ESRD on HD, admitted with upper GI bleeding, stabilized. AV fistulas been functioning well, left IJ tunneled dialysis catheter was removed on 08/16/2021. Overall clinically stable and doing well. Waiting for discharge to center care, bed will be available starting Saturday -- Continue on Saturday, Saturday, Saturday dialysis schedule pending discharge to center care. -- received ROHITH on 08/14/21. -- Dose medications for GFR less than 10, left arm nephrology precaution will follow. Admission and Anticipated Discharge Date Admission Date: July 29, 2021 Subjective Emily was seen and examined this morning. Denies any acute concerns, SOB, CP, F/C. BP stable. AVF has been in use, working. Review of Systems Review of Systems: Detail ROS was unremarkable. Physical Exam Constitutional: WD/WN, vitals as above no acute distress Eyes: + anicteric sclerae Respiratory: no respiratory distress Auscultation: lungs clear to auscultation bilaterally Cardiovascular: Rate/Rhythm: regular rate and regular rhythm Extremities: + AV fistula (with thrill and bruit); no edema Skin: no rashes Neurologic: no focal motor deficits Psychiatric: Orientation: alert and oriented x 3 Results & Data ([facility]) Vital Signs (Past 12 Hours) Vital Signs Temp Pulse Pulse Resp BP BP Pulse Ox 08/18/21 09:20 64 119/58 L 08/18/21 09:12 36.5 C 81 08/18/21 08:16 36.4 C L 81 16 102/61 92 08/17/21 23:08 36.4 C L 81 18 114/57 L 96 PG Care Time/CCT Total # of Minutes Spent Total Time Spent with Patient: Total time spent is greater than 50% in coordination of care (as documented) at patient's floor/unit and/or counseling patient: Coding Level of Care Code 37257 Subseq Hosp Care Lvl 3 Diagnoses End-stage renal disease on hemodialysis N18.6; Z99.2 Upper GI bleed K92.2 Coronary disease I25.10 Edema of left upper arm R60.0
[2021-08-18] MEDS: METOPROLOL TARTRATE 25 MG TAB PO SCH ×2 (14:07→21:27)
[2021-08-18] MEDS: cephALEXin 500 MG CAP PO SCH (17:41)
--- NOTE | 2021-08-18 19:27 | Hospitalist Progress Note ---
Date of Service August 18, 2021 Assessment & Plan (1) Ulcer of left heel: Plan: Achilles region. 08/01/21 culture with MSSA. Previously on keflex, then Unasyn restarted on 08/08 due to low-grade fever & worsening appearance of the ulcer. Appearance of ulcer continues to improve with resolution of purulent drainage. No surrounding cellulitis. Repeat wound cx with MSSA; no new pathogens. Appreciate Dr Minaya' intervention 08/11/21 - s/p popliteal & PLANT SUPERINTENDENT angioplasty. There is a 2nd tiny ulceration over calcaneal region. Cover the 2nd ulcer with optifoam. continue waffle boots. Wound looks improved on 08/17 from previous pictures Leukocytosis resolved, remains afebrile Cardiology recommended to continue plavix and aspirin for one month but since restarting Eliquis for Aflutter, then Cardio recommends discontinuing ASA -Continue Eliquis and Plavix -Continue lipitor. -Continue pain meds prn. -Received 7 days of IV unasyn and now on PO keflex renally dosed through last day tx 08/21 -Continue local wound care (2) Upper GI bleed: Plan: Suspected, at time of admission.Had melanotic stools in the ER Required 2 units PRBCs for lowest Hb of 7.9. H/H much improved since then-now up to 11.5 Seen by [facility] - endoscopy deferred. Remains on protonix 40 Mg p.o. BID. Eliquis was on hold-has now been resumed Plavix restarted 08/02/21. Follow CBC in the morning (3) Coronary disease: Plan: HORACE to LAD and D1 07/2015. 07/30/2021 echo: Normal LV SF, EF 55-60%, no wall motion abnormalities. Continue Plavix 75 mg every morning and atorvastatin 10 mg daily. Imdur on hold due to low BPs. Discontinued aspirin now that restarted Eliquis High-sensitivity troponin peaked at 745 -- this was likely 2nd to myocardial demand ischemia rather than ACS. (4) End-stage renal disease on hemodialysis: Plan: Appreciate [facility] assistance for HD needs. Schedule M/W/F. Volume status acceptable. Patient's right arm AVF is working well. Now status post removal of left-sided PermCath on 08/16-surgical site left anterior chest is healing well (5) Chronic cough: Plan: Present for 2+ years. Has seen pulmonary, ENT and GI for such. Is not on TANVIR or ARB. Previous laryngoscopy in 2020 with supraglottic secretions - aspiration? reflux? post-nasal drip? Some concern of neurogenic cough vs irritative larynx syndrome vs other (cough worse when talking). Previous PFTs with NO obstruction - moderate restriction. Cont atrovent HFA 2 puffs qid PRN. Cont nasacort daily. Was on Tessalon 200mg TID but made this prn since tessalon could be causing altered mentation as it is a weak opioid-mentation seems much improved on 08/16 and 08/17 since discontinuing the Tessalon Her friends were present in the room on 08/18 and reports that her cough is significantly improved from previous (6) Atrial flutter with rapid ventricular response: Plan: a.fib/flutter. converted to NSR last week NSR since. examines in NSR once again today. cont metoprolol 12.5mg BID. Eliquis was on hold initially due to GI bleed, but hemoglobin remained stable- restarted Eliquis on 08/16 (7) Confusion and disorientation: Plan: Acute metabolic encephalopathy in setting of underlying dementia/cognitive impairment. Much improved Cont supportive care. continue to treat infection Encouraged her to get out of bed with assistance (8) Diabetes: Plan: Hba1C 5.5% Had lows over the weekend - resolved with HOLDING LANTUS. Cont novolog SSI (9) Aspiration, chronic pulmonary: Plan: per records. multiple swallow evals in the past by speech therapy. no issues at this time. (10) Breast cancer: Plan: noted. with mets to ribs based on imaging 04/2021. Her son reports that she has been off of her exemestane Follow-up with oncology as an outpatient (11) Dysphagia: Plan: see #9 above (12) Hypothyroidism: Plan: TSH 06/2021 ~20. compliance outside the hospital? Since compliance may have been an issue will leave levothyroxine dose at 150mcg/day and recheck TSH in 4-6 weeks. (13) PAD (peripheral artery disease): Plan: s/p b/l LE arteriogram by Dr Minaya 08/11/21 RLE a-gram wnl. LLE a-gram - popliteal artery and PLANT SUPER[employer]ENDENT occlusions s/p angioplasty by Dr Minaya. No stents. Cont plavix, Eliquis statin. Plan: pt's son, Dr Narvaez, who practices geriatric medicine in [place]-update him by phone on 08/16 dispo - [facility]-insurance authorization is approved but now no bed available till Saturday Admission and Anticipated Discharge Date Admission Date: July 29, 2021 Subjective Patient has no complaints, no pain, no shortness of breath. Has her chronic cough. Is eating and drinking. Had dialysis today and it went well. She is disappointed that she is not going to rehab until Saturday now Review of Systems Review of Systems: All systems reviewed & are unremarkable except as noted in HPI & below Physical Exam Constitutional: WD/WN, vitals as above Eyes: + anicteric sclerae Neck: trachea midline, no thyromegaly Respiratory: normal respiratory effort, lungs clear to auscultation Cardiovascular: RRR, no murmur, no edema Chest (Breasts): Chest: + vascular access device or port (Port right side) Additional Comments: Left anterior chest wall with dressing clean dry and intact over previous tunneled catheter site, mild amount of ecchymosis Gastrointestinal (Abdomen): normal bowel sounds, soft, nontender, no hepatosplenomegaly Musculoskeletal: Extremities: extremities normal to inspection; no cyanosis and no clubbing Skin: no rashes, warm and dry + lesion (left Achilles with 4 x 2 cm open wound with exudate, min erythema) Neurologic: moves all extremities and awake; no focal motor deficits Psychiatric: Orientation: alert, oriented to person and oriented to place Lymphatic: no lymphedema Results & Data Results & Data ([facility]) Vital Signs (Past 12 Hours) Vital Signs Temp Pulse Pulse Pulse Resp BP BP 08/18/21 15:55 36.5 C 81 16 106/62 08/18/21 14:05 36.6 C 87 16 107/56 L 08/18/21 13:09 36.4 C L 93 H 120/62 08/18/21 12:40 89 103/48 L 08/18/21 12:20 86 115/50 L 08/18/21 12:00 79 118/51 L 08/18/21 11:40 80 111/57 L 08/18/21 11:20 84 103/55 L 08/18/21 11:00 83 107/53 L 08/18/21 10:40 80 104/54 L 08/18/21 10:20 92 H 96/53 L 08/18/21 10:00 85 97/55 L 08/18/21 09:40 85 91/51 L 08/18/21 09:20 64 119/58 L 08/18/21 09:12 36.5 C 83 81 08/18/21 08:16 36.4 C L 81 16 102/61 Pulse Ox 08/18/21 15:55 98 08/18/21 14:05 99 08/18/21 13:09 08/18/21 12:40 08/18/21 12:20 08/18/21 12:00 08/18/21 11:40 08/18/21 11:20 08/18/21 11:00 08/18/21 10:40 08/18/21 10:20 08/18/21 10:00 08/18/21 09:40 08/18/21 09:20 08/18/21 09:12 08/18/21 08:16 92 Laboratory Results 08/18/21 08/18/21 08/18/21 Range/Units 17:05 14:35 14:35 POC Glucose 157 H (70-99) mg/dl Hep Bs Antigen Pending Hep Bs Ag Confirmation Pending Hep Bs Antibody, Quant Pending Hepatitis Be Antibody Hepatitis Be Antigen 08/18/21 08/18/21 08/17/21 Range/Units 13:19 07:59 20:36 POC Glucose 119 H 130 H 159 H (70-99) mg/dl Hep Bs Antigen Hep Bs Ag Confirmation Hep Bs Antibody, Quant Hepatitis Be Antibody Hepatitis Be Antigen 08/14/21 Range/Units 08:48 POC Glucose (70-99) mg/dl Hep Bs Antigen Hep Bs Ag Confirmation Hep Bs Antibody, Quant Hepatitis Be Antibody Nonreactive Hepatitis Be Antigen Nonreactive PG Care Time/CCT Total # of Minutes Spent Total Time Spent with Patient: Total time spent is greater than 50% in coordination of care (as documented) at patient's floor/unit and/or counseling patient: Coding Level of Care Code 20659 Subseq Hosp Care Lvl 2 Diagnoses Ulcer of left heel L97.429 Upper GI bleed K92.2 Coronary disease I25.10 End-stage renal disease on hemodialysis N18.6; Z99.2 Chronic cough R05 Atrial flutter with rapid ventricular response I48.92 Confusion and disorientation R41.0 Diabetes E11.9 Aspiration, chronic pulmonary T17.908A Encounter type: initial encounter Breast cancer C50.919 Dysphagia R13.10 Hypothyroidism E03.9 Hypothyroidism type: unspecified PAD (peripheral artery disease) I73.9 (1) Aspiration, chronic pulmonary Encounter type: initial encounter Qualified Code(s): T17.908A - Unspecified foreign body in respiratory tract, part unspecified causing other injury, initial encounter (2) Hypothyroidism Hypothyroidism type: unspecified Qualified Code(s): E03.9 - Hypothyroidism, unspecified
[2021-08-18] MEDS: ATORVASTATIN 10 MG TAB PO SCH (20:56)
[2021-08-18] MEDS: DOCUSATE SODIUM 100 MG CAP PO SCH (21:23)
[2021-08-18] MEDS: FAMOTIDINE 20 MG TAB PO SCH (21:23)
[2021-08-18] MEDS: FLUTICASONE/VILANTEROL 200/25MCG 14 PUFFS/INHALER INH SCH (21:24)
[2021-08-18] MEDS: PRAMIPEXOLE DIHYDROCHLO 0.25 MG TAB PO SCH (21:25)
[2021-08-19] MEDS: LEVOTHYROXINE SODIUM 150 MCG TABLET PO SCH (06:08)
[2021-08-19 06:22] LABS: Hematocrit (blood only) 38.5 % (37-47); Hemoglobin 12.2 g/dL (12.0-16.0); Mean Corpuscular Hemoglobin 29.9 pg (25-34); Mean Corpuscular Hgb Conc 31.7 g/dL (32-36); Mean Corpuscular Volume 94.4 fL (80-100); Mean Platelet Volume 11.2 fL (7.4-10.4); Nucleated RBC # (auto) 0.03 K/uL (0-0); Nucleated RBC % (auto) 0.2 %; Platelet Count 228 K/uL (130-400); RDW Coefficient of Variation 17.5 % (11.5-14.5); Red Blood Count 4.08 M/uL (4.2-5.4); White Blood Count 12.76 K/uL (4.8-10.8)
[2021-08-19] MEDS: APIXABAN 2.5 MG TAB PO SCH ×2 (08:47→21:06)
[2021-08-19] MEDS: METOPROLOL TARTRATE 25 MG TAB PO SCH ×3 (08:47→21:07)
[2021-08-19] MEDS: ADVANCED PROBIOTIC 1250 MG CAPSULE PO SCH (08:47)
[2021-08-19] MEDS: PANTOprazole 40 MG TAB PO SCH ×2 (08:47→21:08)
[2021-08-19] MEDS: TRIAMCINOLONE ACET NASAL SPRAY 10.8ML BTL NAE SCH (08:47)
[2021-08-19] MEDS: INSULIN ASPART PER UNIT SC SCH ×4 (08:51→21:05)
[2021-08-19] MEDS: CLOPIDOGREL BISULFATE 75 MG TAB PO SCH (08:52)
--- NOTE | 2021-08-19 10:06 | Nephrology Progress Note ---
Date of Service August 19, 2021 Assessment & Plan (1) End-stage renal disease on hemodialysis: (2) Upper GI bleed: (3) Coronary disease: (4) Edema of left upper arm: Plan: ESRD on HD, admitted with upper GI bleeding, stabilized. AV fistulas been functioning well, left IJ tunneled dialysis catheter was removed on 08/16/2021. Overall clinically stable and doing well. Waiting for discharge to [facility], bed will be available starting Saturday -- Continue on Saturday, Saturday, Saturday dialysis schedule pending discharge to [facility], Bed available Saturday.. -- received ROHITH on 08/14/21. -- Dose medications for GFR less than 10, left arm nephrology precaution will follow. Admission and Anticipated Discharge Date Admission Date: July 29, 2021 Beka Diaz was seen and examined this morning. she has been overall doing well, clinically stable, denies any acute concerns, SOB, CP, F/C. BP stable. AVF has been in use, working, had dialysis yesterday.. Review of Systems Review of Systems: Detail ROS was unremarkable. Physical Exam Constitutional: WD/WN, vitals as above no acute distress Eyes: + anicteric sclerae ENMT: Ears: no hearing impairment Respiratory: no respiratory distress Auscultation: lungs clear to auscultation bilaterally Cardiovascular: Rate/Rhythm: regular rate and regular rhythm Extremities: + AV fistula (with thrill and bruit); no edema Skin: no rashes Neurologic: no focal motor deficits Psychiatric: Orientation: alert and oriented x 3 Results & Data ([facility]) Vital Signs (Past 12 Hours) Vital Signs Temp Pulse Resp BP Pulse Ox 08/19/21 06:54 36.9 C 86 16 99/61 L 100 PG Care Time/CCT Total # of Minutes Spent Total Time Spent with Patient: Total time spent is greater than 50% in coordination of care (as documented) at patient's floor/unit and/or counseling patient: Coding Level of Care Code 81976 Subseq Hosp Care Lvl 2 Diagnoses End-stage renal disease on hemodialysis N18.6; Z99.2 Upper GI bleed K92.2 Coronary disease I25.10 Edema of left upper arm R60.0
--- NOTE | 2021-08-19 10:18 | Hospitalist Progress Note ---
Date of Service August 19, 2021 Assessment & Plan (1) Ulcer of left heel: Plan: Achilles region. 08/01/21 culture with MSSA. Previously on keflex, then Unasyn restarted on 08/08 due to low-grade fever & worsening appearance of the ulcer. Appearance of ulcer continues to improve with resolution of purulent drainage. No surrounding cellulitis. Repeat wound cx with MSSA; no new pathogens. Appreciate Dr Minaya' intervention 08/11/21 - s/p popliteal & [employer] angioplasty. There is a 2nd tiny ulceration over calcaneal region. Cover the 2nd ulcer with optifoam. continue waffle boots. Wound looks improved on 08/17 from previous pictures Leukocytosis resolved but now back up slightly to 12 but remains afebrile Cardiology recommended to continue plavix and aspirin for one month but since restarting Eliquis for Aflutter, then Cardio recommends discontinuing ASA -Continue Eliquis and Plavix -Continue lipitor. -Continue pain meds prn. -Received 7 days of IV unasyn and now on PO keflex renally dosed through last day tx 08/21 -Continue local wound care -follow CBC in AM (2) Upper GI bleed: Plan: Suspected, at time of admission.Had melanotic stools in the ER Required 2 units PRBCs for lowest Hb of 7.9. H/H much improved since then-now up to 11.5 Seen by [facility] - [place] deferred. Remains on protonix 40 Mg p.o. BID. Eliquis was on hold-has now been resumed Plavix restarted 08/02/21. Follow CBC in the morning (3) Coronary disease: Plan: HORACE to LAD and D1 07/2015. 07/30/2021 echo: Normal LV SF, EF 55-60%, no wall motion abnormalities. Continue Plavix 75 mg every morning and atorvastatin 10 mg daily. Imdur on hold due to low BPs. Discontinued aspirin now that restarted Eliquis High-sensitivity troponin peaked at 745 -- this was likely 2nd to myocardial demand ischemia rather than ACS. (4) End-stage renal disease on hemodialysis: Plan: Appreciate [facility] for HD needs. Schedule M/W/F. Volume status acceptable. Patient's right arm AVF is working well. Now status post removal of left-sided PermCath on 08/16-surgical site left anterior chest is healing well (5) Chronic cough: Plan: Present for 2+ years. Has seen pulmonary, ENT and GI for such. Is not on TANVIR or ARB. Previous laryngoscopy in 2020 with supraglottic secretions - aspiration? reflux? post-nasal drip? Some concern of neurogenic cough vs irritative larynx syndrome vs other (cough worse when talking). Previous PFTs with NO obstruction - moderate restriction. Cont atrovent HFA 2 puffs qid PRN. Cont nasacort daily. Was on Tessalon 200mg TID but made this prn since tessalon could be causing altered mentation as it is a weak opioid-mentation seems much improved on 08/16 and 08/17 since discontinuing the Tessalon Her friends were present in the room on 08/18 and reports that her cough is significantly improved from previous (6) Atrial flutter with rapid ventricular response: Plan: a.fib/flutter. converted to NSR last week NSR since. examines in NSR once again today. cont metoprolol 12.5mg BID. Eliquis was on hold initially due to GI bleed, but hemoglobin remained stable- restarted Eliquis on 08/16 (7) Confusion and disorientation: Plan: Acute metabolic encephalopathy in setting of underlying dementia/cognitive impairment. Much improved Cont supportive care. continue to treat infection Encouraged her to get out of bed with assistance (8) Diabetes: Plan: Hba1C 5.5% Had lows over the weekend - resolved with HOLDING LANTUS. Cont novolog SSI (9) Aspiration, chronic pulmonary: Plan: per records. multiple swallow evals in the past by speech therapy. no issues at this time. (10) Breast cancer: Plan: noted. with mets to ribs based on imaging 04/2021. Her son reports that she has been off of her exemestane Follow-up with oncology as an outpatient (11) Dysphagia: Plan: see #9 above (12) Hypothyroidism: Plan: TSH 06/2021 ~20. compliance outside the hospital? Since compliance may have been an issue will leave levothyroxine dose at 150mcg/day and recheck TSH in 4-6 weeks. (13) PAD (peripheral artery disease): Plan: s/p b/l LE arteriogram by Dr Minaya 08/11/21 RLE a-gram wnl. LLE a-gram - popliteal artery and [employer] occlusions s/p angioplasty by Dr Minaya. No stents. Cont plavix, Eliquis statin. Plan: pt's son, Dr Narvaez, who practices geriatric medicine in [place]-update him by phone on 08/16 dispo - [facility]-insurance authorization is approved but now no bed available till Saturday Admission and Anticipated Discharge Date Admission Date: July 29, 2021 Subjective Pt has no complaints. No pain, no nausea, is eating breakfast. Review of Systems Review of Systems: All systems reviewed & are unremarkable except as noted in HPI & below Physical Exam Constitutional: WD/WN, vitals as above Eyes: + anicteric sclerae Neck: trachea midline, no thyromegaly Respiratory: normal respiratory effort, lungs clear to auscultation Cardiovascular: RRR, no murmur, no edema Chest (Breasts): Chest: + vascular access device or port (Port right side) Gastrointestinal (Abdomen): normal bowel sounds, soft, nontender, no hepatosplenomegaly Musculoskeletal: Extremities: extremities normal to inspection; no cyanosis and no clubbing Skin: no rashes, warm and dry wound dressed when I sa wher this AM Neurologic: moves all extremities and awake; no focal motor deficits Psychiatric: Orientation: alert, oriented to person and oriented to place Lymphatic: no lymphedema Results & Data Results & Data ([facility]) Vital Signs (Past 12 Hours) Vital Signs Temp Pulse Resp BP Pulse Ox 08/19/21 06:54 36.9 C 86 16 99/61 L 100 PG Care Time/CCT Total # of Minutes Spent Total Time Spent with Patient: Total time spent is greater than 50% in coordination of care (as documented) at patient's floor/unit and/or counseling patient: Coding Level of Care Code 00172 Subseq Hosp Care Lvl 1 Diagnoses Ulcer of left heel L97.429 Upper GI bleed K92.2 Coronary disease I25.10 End-stage renal disease on hemodialysis N18.6; Z99.2 Chronic cough R05 Atrial flutter with rapid ventricular response I48.92 Confusion and disorientation R41.0 Diabetes E11.9 Aspiration, chronic pulmonary T17.908A Encounter type: initial encounter Breast cancer C50.919 Dysphagia R13.10 Hypothyroidism E03.9 Hypothyroidism type: unspecified PAD (peripheral artery disease) I73.9 (1) Aspiration, chronic pulmonary Encounter type: initial encounter Qualified Code(s): T17.908A - Unspecified foreign body in respiratory tract, part unspecified causing other injury, initial encounter (2) Hypothyroidism Hypothyroidism type: unspecified Qualified Code(s): E03.9 - Hypothyroidism, unspecified
[2021-08-19] MEDS: cephALEXin 500 MG CAP PO SCH (18:06)
[2021-08-19] MEDS: FLUTICASONE/VILANTEROL 200/25MCG 14 PUFFS/INHALER INH SCH (21:06)
[2021-08-19] MEDS: ATORVASTATIN 10 MG TAB PO SCH (21:06)
[2021-08-19] MEDS: PRAMIPEXOLE DIHYDROCHLO 0.25 MG TAB PO SCH (21:09)
[2021-08-19] MEDS: FAMOTIDINE 20 MG TAB PO SCH (21:12)
[2021-08-19] MEDS: DOCUSATE SODIUM 100 MG CAP PO SCH (21:12)
[2021-08-20] MEDS: LEVOTHYROXINE SODIUM 150 MCG TABLET PO SCH (06:27)
[2021-08-20 06:28] LABS: Hematocrit (blood only) 38.1 % (37-47); Hemoglobin 12.1 g/dL (12.0-16.0); Mean Corpuscular Hemoglobin 29.8 pg (25-34); Mean Corpuscular Hgb Conc 31.8 g/dL (32-36); Mean Corpuscular Volume 93.8 fL (80-100); Mean Platelet Volume 10.7 fL (7.4-10.4); Platelet Count 221 K/uL (130-400); RDW Coefficient of Variation 17.4 % (11.5-14.5); Red Blood Count 4.06 M/uL (4.2-5.4); White Blood Count 12.94 K/uL (4.8-10.8)
[2021-08-20 06:52] LABS: BUN Creatinine Ratio 5.9 (10-20); Calcium 8.1 mg/dl (8.5-10.1); Creatinine Clr Calc Pharmacy 9.9 ml/min; Est GFR (African American) 10.9 ml/min; Est GFR (Non-African American) 9.4 ml/min; Potassium 4.3 mmol/L (3.5-5.1)
[2021-08-20 07:46] LABS: ALC (manual) 4.75 K/uL (1.2-3.4); ANC (manual) 6.43 K/uL (1.4-6.5); Basophils # (manual) 0.22 K/uL (0-0.2); Basophils % (manual) 1.7 %; Eosinophils # (manual) 0.66 K/uL (0-0.5); Eosinophils % (manual) 5.1 %; Large Granular Lymph # (manua 4.09 K/uL; Large Granular Lymph % (manual) 31.6 %; Lymphocytes # (manual) 0.66 K/uL (1.2-3.4); Lymphocytes % (manual) 5.1 %; Monocytes # (manual) 0.88 K/uL (0.11-0.59); Monocytes % (manual) 6.8 %; Neutrophils # (manual) 6.43 K/uL (1.4-6.5); Neutrophils % (manual) 49.7 %
[2021-08-20] MEDS ORDERED: BENZONATATE 100 MG CAPSULE PO PRN (09:13)
[2021-08-20] MEDS: HEPARIN 100 UNIT/ML 5ML FLUSH FLUSH PRN (09:13)
--- NOTE | 2021-08-20 09:20 | Hospitalist Progress Note ---
Date of Service August 20, 2021 Assessment & Plan (1) Ulcer of left heel: Plan: Achilles region. 08/01/21 culture with MSSA. Previously on keflex, then Unasyn restarted on 08/08 due to low-grade fever & worsening appearance of the ulcer. Appearance of ulcer continues to improve with resolution of purulent drainage. No surrounding cellulitis. Repeat wound cx with MSSA; no new pathogens. Appreciate Dr Minaya' intervention 08/11/21 - s/p popliteal & [employer] angioplasty. There is a 2nd tiny ulceration over calcaneal region. Cover the 2nd ulcer with optifoam. continue waffle boots. Wound looks improved on 08/17 from previous pictures, still awaiting dressing change today to take another look-discussed with RN Leukocytosis had been resolved but now back up slightly to 12 for 2 days in a row interestingly with an absolute lymphocytosis of almost 5000 which does not seem related to bacterial infection remains afebrile Cardiology recommended to continue plavix and aspirin for one month but since we have restarted Eliquis for Aflutter, then Cardio recommends discontinuing ASA -Continue Eliquis and Plavix -Continue lipitor. -Continue pain meds prn. -Received 7 days of IV unasyn and now on PO keflex renally dosed through last day tx 08/21 -Continue local wound care-dressing is to be changed every other day -follow CBC in AM (2) Upper GI bleed: Plan: Suspected, at time of admission.Had melanotic stools in the ER Required 2 units PRBCs for lowest Hb of 7.9. H/H much improved since then-now up to 11 and stable Se[address] [facility] - endoscopy deferred. Remains on protonix 40 Mg p.o. BID. Eliquis was on hold-has now been resumed and hgb remains stable Plavix restarted 08/02/21. Follow CBC periodically (3) Lymphocytosis: Plan: with WBC count 12 for last two days, with absolute lymphocytosis today of almost 5000 could be viral infection vs drug reaction does have chronic cough and Pertussis can cause lymphocytosis but as per PULM reports, this cough has been present for years? -check peripheral smear -consider pertussis testing although at this point treatment would not likely be beneficial if chronic/subacute (4) Coronary disease: Plan: HORACE to LAD and D1 07/2015. 07/30/2021 echo: Normal LV SF, EF 55-60%, no wall motion abnormalities. Continue Plavix 75 mg every morning and atorvastatin 10 mg daily. Imdur held due to low BPs. Discontinued aspirin now that restarted Eliquis High-sensitivity troponin peaked at 745 -- this was likely 2nd to myocardial demand ischemia rather than ACS. (5) End-stage renal disease on hemodialysis: Plan: Appreciate [facility] Ne[facility] assistance for HD needs. Schedule M/W/F. Volume status acceptable. Patient's right arm AVF is working well. Now status post removal of left-sided PermCath on 08/16-surgical site left anterior chest is healing well (6) Chronic cough: Plan: Present for 2+ years. Has seen pulmonary, ENT and GI for such. Is not on TANVIR or ARB. Previous laryngoscopy in 2020 with supraglottic secretions - aspiration? reflux? post-nasal drip? Some concern of neurogenic cough vs irritative larynx syndrome vs other (cough worse when talking). Previous PFTs with NO obstruction - moderate restriction. Cont atrovent HFA 2 puffs qid PRN. Cont nasacort daily. Was on Tessalon 200mg TID but made this prn since tessalon could be causing altered mentation as it is a weak opioid-mentation seems much improved on 08/16 and 08/17 since discontinuing the Tessalon Her friends were present in the room on 08/18 and reports that her cough is significantly improved from previous However, cough slightly worse again on 08/20--> will restart lower dose of tessalon at 100mg tid prn-use sparingly -consider pertussis testing as above (7) Atrial flutter with rapid ventricular response: Plan: a.fib/flutter. converted to NSR last week NSR since. examines in NSR once again today. cont metoprolol 12.5mg BID. Eliquis was on hold initially due to GI bleed, but hemoglobin remained stable- restarted Eliquis on 08/16 (8) Confusion and disorientation: Plan: Acute metabolic encephalopathy in setting of underlying dementia/cognitive impairment. Much improved Cont supportive care. continue to treat infection Encouraged her to get out of bed with assistance/PT only (9) Diabetes: Plan: Hba1C 5.5% Had lows over the weekend - resolved with HOLDING LANTUS. Cont novolog SSI (10) Aspiration, chronic pulmonary: Plan: per records. multiple swallow evals in the past by speech therapy. no issues at this time. (11) Breast cancer: Plan: noted. with mets to ribs based on imaging 04/2021. Her son reports that she has been off of her exemestane Follow-up with oncology as an outpatient (12) Dysphagia: Plan: see #9 above (13) Hypothyroidism: Plan: TSH 06/2021 ~20. compliance outside the hospital? Since compliance may have been an issue will leave levothyroxine dose at 150mcg/day and recheck TSH in 4-6 weeks. (14) PAD (peripheral artery disease): Plan: s/p b/l LE arteriogram by Dr Minaya 08/11/21 RLE a-justin wnl. LLE popeye-justin - popliteal artery and [employer] occlusions s/p angioplasty by Dr Minaya. No stents. Cont plavix, Eliquis statin. Plan: pt's son, Brice, who practices geriatric medicine in [place]-update him by phone on 08/16 and will call again today dispo - [facility]-insurance authorization is approved but now no bed available till Saturday, plan for dc Saturday Admission and Anticipated Discharge Date Admission Date: July 29, 2021 Anticipated date of discharge: 08/21/21 Subjective Pt has no complaints. Just her cough is a bit more today. She just finished her breakfast. Denies pain anywhere. Review of Systems Review of Systems: All systems reviewed & are unremarkable except as noted in HPI & below Physical Exam Constitutional: WD/WN, vitals as above Eyes: + anicteric sclerae Neck: trachea midline, no thyromegaly Respiratory: normal respiratory effort, lungs clear to auscultation Cardiovascular: RRR, no murmur, no edema Chest (Breasts): Chest: + vascular access device or port (Port right side) Gastrointestinal (Abdomen): normal bowel sounds, soft, nontender, no hepatosplenomegaly Musculoskeletal: Extremities: extremities normal to inspection; no cyanosis and no clubbing Skin: no rashes, warm and dry Neurologic: moves all extremities and awake; no focal motor deficits Psychiatric: Orientation: alert, oriented to person and oriented to place Lymphatic: no lymphedema Results & Data Results & Data ([facility]) Vital Signs (Past 12 Hours) Vital Signs Temp Pulse Resp BP Pulse Ox 08/20/21 07:38 36.4 C L 75 16 113/62 97 08/19/21 22:13 36.5 C 77 16 110/56 L 97 Laboratory Results 08/20/21 08/20/21 08/20/21 Range/Units 08:28 06:03 06:03 WBC 12.94 H (4.8-10.8) K/uL RBC 4.06 L (4.2-5.4) M/uL Hgb 12.1 (12.0-16.0) g/dL Hct 38.1 (37-47) % MCV 93.8 (80-100) fL MCH 29.8 (25-34) pg MCHC 31.8 L (32-36) g/dL RDW Std Deviation 60.0 H (36.4-46.3) fL RDW Coeff of Oj 17.4 H (11.5-14.5) % Plt Count 221 (130-400) K/uL MPV 10.7 H (7.4-10.4) fL Neutrophils % (Manual) 49.7 % Lymphocytes % (Manual) 5.1 % Monocytes % (Manual) 6.8 % Eosinophils % (Manual) 5.1 % Basophils % (Manual) 1.7 % Neutrophils # (Manual) 6.43 (1.4-6.5) K/uL Total Absolute Neuts 6.43 (1.4-6.5) K/uL Lymphocytes # (Manual) 0.66 L (1.2-3.4) K/uL Total Abs Lymphocytes 4.75 H (1.2-3.4) K/uL Monocytes # (Manual) 0.88 H (0.11-0.59) K/uL Eosinophils # (Manual) 0.66 H (0-0.5) K/uL Basophils # (Manual) 0.22 H (0-0.2) K/uL Large Granular Lymphs 31.6 % # Lrg Granular Lymphs 4.09 K/uL Blood Smear Review Cancelled Peripher Smr Path Cons Pending Sodium 134 L (136-145) mmol/L Potassium 4.3 (3.5-5.1) mmol/L Chloride 102 (98-107) mmol/L Carbon Dioxide 26 (21-32) mmol/L Anion Gap 6 (3-11) BUN 24 H (6-23) mg/dl Creatinine 4.07 H (0.6-1.2) mg/dl Est Cr Clr Drug Dosing 9.9 ml/min Est GFR ( Amer) 10.9 ml/min Est GFR (Non-Af Amer) 9.4 ml/min BUN/Creatinine Ratio 5.9 L (10-20) Glucose 163 H (70-99(Fasting)) mg/dl POC Glucose 170 H (70-99) mg/dl Calcium 8.1 L (8.5-10.1) mg/dl 08/19/21 08/19/21 08/19/21 Range/Units 20:53 17:18 12:14 WBC (4.8-10.8) K/uL RBC (4.2-5.4) M/uL Hgb (12.0-16.0) g/dL Hct (37-47) % MCV (80-100) fL MCH (25-34) pg MCHC (32-36) g/dL RDW Std Deviation (36.4-46.3) fL RDW Coeff of Oj (11.5-14.5) % Plt Count (130-400) K/uL MPV (7.4-10.4) fL Neutrophils % (Manual) % Lymphocytes % (Manual) % Monocytes % (Manual) % Eosinophils % (Manual) % Basophils % (Manual) % Neutrophils # (Manual) (1.4-6.5) K/uL Total Absolute Neuts (1.4-6.5) K/uL Lymphocytes # (Manual) (1.2-3.4) K/uL Total Abs Lymphocytes (1.2-3.4) K/uL Monocytes # (Manual) (0.11-0.59) K/uL Eosinophils # (Manual) (0-0.5) K/uL Basophils # (Manual) (0-0.2) K/uL Large Granular Lymphs % # Lrg Granular Lymphs K/uL Blood Smear Review Peripher Smr Path Cons Sodium (136-145) mmol/L Potassium (3.5-5.1) mmol/L Chloride (98-107) mmol/L Carbon Dioxide (21-32) mmol/L Anion Gap (3-11) BUN (6-23) mg/dl Creatinine (0.6-1.2) mg/dl Est Cr Clr Drug Dosing ml/min Est GFR ( Amer) ml/min Est GFR (Non-Af Amer) ml/min BUN/Creatinine Ratio (10-20) Glucose (70-99(Fasting)) mg/dl POC Glucose 168 H 151 H 207 H (70-99) mg/dl Calcium (8.5-10.1) mg/dl PG Care Time/CCT Total # of Minutes Spent Total Time Spent with Patient: Total time spent is greater than 50% in coordination of care (as documented) at patient's floor/unit and/or counseling patient: Coding Level of Care Code 46710 Subseq Hosp Care Lvl 2 Diagnoses Ulcer of left heel L97.429 Upper GI bleed K92.2 Coronary disease I25.10 End-stage renal disease on hemodialysis N18.6; Z99.2 Chronic cough R05 Atrial flutter with rapid ventricular response I48.92 Confusion and disorientation R41.0 Diabetes E11.9 Aspiration, chronic pulmonary T17.908A Encounter type: initial encounter Breast cancer C50.919 Dysphagia R13.10 Hypothyroidism E03.9 Hypothyroidism type: unspecified PAD (peripheral artery disease) I73.9 Lymphocytosis D72.820 (1) Aspiration, chronic pulmonary Encounter type: initial encounter Qualified Code(s): T17.908A - Unspecified foreign body in respiratory tract, part unspecified causing other injury, initial encounter (2) Hypothyroidism Hypothyroidism type: unspecified Qualified Code(s): E03.9 - Hypothyroidism, unspecified
[2021-08-20] MEDS: METOPROLOL TARTRATE 25 MG TAB PO SCH ×2 (09:37→20:43)
[2021-08-20] MEDS: PANTOprazole 40 MG TAB PO SCH ×2 (09:37→20:42)
[2021-08-20] MEDS: TRIAMCINOLONE ACET NASAL SPRAY 10.8ML BTL NAE SCH (09:37)
[2021-08-20] MEDS: ADVANCED PROBIOTIC 1250 MG CAPSULE PO SCH (09:37)
[2021-08-20] MEDS: APIXABAN 2.5 MG TAB PO SCH ×2 (09:37→20:43)
[2021-08-20] MEDS: CLOPIDOGREL BISULFATE 75 MG TAB PO SCH (09:37)
[2021-08-20] MEDS: INSULIN ASPART PER UNIT SC SCH ×4 (09:41→20:45)
[2021-08-20] MEDS: IPRATROPIUM BROMIDE HFA INHALER INH SCH ×3 (11:22→18:52)
--- NOTE | 2021-08-20 11:36 | Nephrology Progress Note ---
Date of Service August 20, 2021 Assessment & Plan (1) End-stage renal disease on hemodialysis: (2) Upper GI bleed: (3) Coronary disease: (4) Edema of left upper arm: Plan: ESRD on HD, admitted with upper GI bleeding, stabilized. AV fistulas been functioning well, left IJ tunneled dialysis catheter was removed on 08/16/2021. Overall clinically stable and doing well. Waiting for discharge to center care, bed will be available starting Saturday -- dialysis Saturday pending discharge to center care, Bed available Saturday.. -- received ROHITH on 08/14/21. -- Dose medications for GFR less than 10, Rt arm nephrology precaution will follow. Admission and Anticipated Discharge Date Admission Date: July 29, 2021 Beka Diaz was seen and examined this morning. Overall she has been overall doing well, clinically stable, denies any acute concerns, SOB, CP, F/C. BP stable. AVF has been in use, working, had dialysis Saturday. Review of Systems Review of Systems: Detail ROS was unremarkable. Physical Exam Constitutional: WD/WN, vitals as above no acute distress Eyes: + anicteric sclerae ENMT: Ears: no hearing impairment Respiratory: no respiratory distress Auscultation: lungs clear to auscultation bilaterally Cardiovascular: Rate/Rhythm: regular rate and regular rhythm Heart Sounds: normal S1 and normal S2 Extremities: + AV fistula (with thrill and bruit); no edema Skin: no rashes Neurologic: no focal motor deficits Psychiatric: Orientation: alert and oriented x 3 Results & Data ([facility]) Vital Signs (Past 12 Hours) Vital Signs Temp Pulse Resp BP Pulse Ox 08/20/21 11:23 87 20 99 08/20/21 07:38 36.4 C L 75 16 113/62 97 PG Care Time/CCT Total # of Minutes Spent Total Time Spent with Patient: Total time spent is greater than 50% in coordination of care (as documented) at patient's floor/unit and/or counseling patient: Coding Level of Care Code 55521 Subseq Hosp Care Lvl 2 Diagnoses End-stage renal disease on hemodialysis N18.6; Z99.2 Upper GI bleed K92.2 Coronary disease I25.10 Edema of left upper arm R60.0
[2021-08-20] MEDS: cephALEXin 500 MG CAP PO SCH (17:50)
[2021-08-20] MEDS: ATORVASTATIN 10 MG TAB PO SCH (20:43)
[2021-08-20] MEDS: FLUTICASONE/VILANTEROL 200/25MCG 14 PUFFS/INHALER INH SCH (20:44)
[2021-08-20] MEDS: PRAMIPEXOLE DIHYDROCHLO 0.25 MG TAB PO SCH (20:44)
[2021-08-20] MEDS: DOCUSATE SODIUM 100 MG CAP PO SCH (20:49)
[2021-08-20] MEDS: FAMOTIDINE 20 MG TAB PO SCH (20:49)
[2021-08-20 22:15] LABS: HBSAG NON-REACTIVE (NON-REACTIVE)
[2021-08-21] MEDS: HEPARIN 100 UNIT/ML 5ML FLUSH FLUSH PRN ×3 (05:49→14:31)
[2021-08-21] MEDS: LEVOTHYROXINE SODIUM 150 MCG TABLET PO SCH (05:53)
[2021-08-21 06:16] LABS: Basophils # (auto) 0.07 K/uL (0-0.2); Basophils % (auto) 0.6 %; Eosinophils # (auto) 0.35 K/uL (0-0.5); Eosinophils % (auto) 2.9 %; Hematocrit (blood only) 38.4 % (37-47); Hemoglobin 11.9 g/dL (12.0-16.0); Immature Granulocytes # (auto) 0.05 K/uL (0.00-0.02); Immature Granulocytes % (auto) 0.4 %; Lymphocytes # (auto) 4.99 K/uL (1.2-3.4); Lymphocytes % (auto) 41.4 %; Mean Corpuscular Hemoglobin 28.7 pg (25-34); Mean Corpuscular Volume 92.8 fL (80-100); Mean Platelet Volume 10.7 fL (7.4-10.4); Monocytes # (auto) 0.79 K/uL (0.11-0.59); Monocytes % (auto) 6.6 %; Neutrophils % (auto) 48.1 %; Platelet Count 215 K/uL (130-400); RDW Coefficient of Variation 17.5 % (11.5-14.5); RDW Standard Deviation 58.6 fL (36.4-46.3); Red Blood Count 4.14 M/uL (4.2-5.4); White Blood Count 12.05 K/uL (4.8-10.8)
[2021-08-21 06:46] LABS: BUN Creatinine Ratio 8.2 (10-20); Creatinine Clr Calc Pharmacy 9.4 ml/min; Est GFR (African American) 10.3 ml/min; Est GFR (Non-African American) 8.9 ml/min; Potassium 4.2 mmol/L (3.5-5.1)
[2021-08-21] MEDS: ALBUTEROL HFA 8 GM INHALER INH PRN (07:09)
[2021-08-21 07:38] VITALS: O2SAT 93
[2021-08-21] MEDS ORDERED: ONDANSETRON INJ 2 MG/ML 2 ML VIAL IV PRN (08:22)
[2021-08-21] MEDS: ADVANCED PROBIOTIC 1250 MG CAPSULE PO SCH (08:37)
[2021-08-21] MEDS: PANTOprazole 40 MG TAB PO SCH (08:38)
[2021-08-21] MEDS: CLOPIDOGREL BISULFATE 75 MG TAB PO SCH (08:38)
[2021-08-21] MEDS: APIXABAN 2.5 MG TAB PO SCH (08:38)
[2021-08-21] MEDS: METOPROLOL TARTRATE 25 MG TAB PO SCH (08:39)
[2021-08-21] MEDS: TRIAMCINOLONE ACET NASAL SPRAY 10.8ML BTL NAE SCH (08:41)
[2021-08-21] MEDS: INSULIN ASPART PER UNIT SC SCH ×2 (08:45→13:37)
[2021-08-21 09:43] VITALS: TEMP 98.6
--- NOTE | 2021-08-21 09:57 | Nephrology Progress Note ---
Date of Service August 21, 2021 Assessment & Plan (1) End-stage renal disease on hemodialysis: Plan: * ESKD on HD MWF at [facility] (4 hrs, 180 optiflux, Qb 400 Qd 800, 3 K bath. EDW 82.5 kg). * EDW now ~67 kg * AVF able to be used without issues. * Orders for HD today entered into EHR and reviewed with dialysis nurse (2) Anemia: Plan: * UGI bleed at time of hospitalization. H&H stabilized following blood transfusion. No endoscopic evaluation performed due to potential risks involved w/ procedure and improvement following supportive care * 2 units PRBC support provided 07/30. Epogen 24665 units and Venofer 100 mg provided with HD. (3) Upper GI bleed: (4) Coronary disease: (5) Edema of left upper arm: Plan: * Chronic, stable. Admission and Anticipated Discharge Date Admission Date: July 29, 2021 Subjective No acute events overnight. No complaints this AM. Emily was seen and evaluated prior to and during hemodialysis today. Review of Systems Review of Systems: All systems reviewed & are unremarkable except as noted in HPI & below Physical Exam Constitutional: well developed and + frail appearing; no acute distress Eyes: + anicteric sclerae; no corneal abnormality ENMT: Mouth: no oral mucosal abnormality and oral mucous membranes not dry Neck: normal visual inspection and trachea midline Respiratory: normal respiratory effort and + cough Auscultation: lungs clear to auscultation bilaterally Cardiovascular: Rate/Rhythm: regular rate Heart Sounds: normal S1 and normal S2 Extremities: + edema and + AV fistula Musculoskeletal: Extremities: no cyanosis and no clubbing Skin: + turgor decreased; no jaundice Neurologic: Motor/Sensory: no tremor and no asterixis Psychiatric: Orientation: alert and cooperative Results & Data ([facility]) Vital Signs (Past 12 Hours) Vital Signs Temp Pulse Resp BP Pulse Ox 08/21/21 09:20 37 C 89 08/21/21 07:37 36.3 C L 76 14 99/58 L 93 08/21/21 07:10 78 16 96 08/20/21 22:09 36.4 C L 75 17 115/56 L 96 Laboratory Results Laboratory Results - last 24 hr 08/18/21 08/18/21 08/20/21 14:35 14:35 11:53 WBC RBC Hgb Hct MCV MCH MCHC RDW Std Deviation RDW Coeff of Oj Plt Count MPV Immature Gran % (Auto) Neut % (Auto) Lymph % (Auto) [place] % (Auto) Eos % (Auto) Baso % (Auto) Neut # (Auto) Lymph # (Auto) [place] # (Auto) Eos # (Auto) Baso # (Auto) Immature Gran # (Auto) Sodium Potassium Chloride Carbon Dioxide Anion Gap BUN Creatinine Est Cr Clr Drug Dosing Est GFR ( Amer) Est GFR (Non-Af Amer) BUN/Creatinine Ratio Glucose POC Glucose 194 H Calcium Hepatitis B Ab, Qual Cancelled Hep Bs Antigen NON-REACTIVE Hep Bs Ag Confirmation TNP Hep Bs Antibody, Quant <5 L SARS-CoV-2, RNA, NAAT 08/20/21 08/20/21 08/21/21 16:51 20:39 05:50 WBC 12.05 H RBC 4.14 L Hgb 11.9 L Hct 38.4 MCV 92.8 MCH 28.7 MCHC 31.0 L RDW Std Deviation 58.6 H RDW Coeff of Oj 17.5 H Plt Count 215 MPV 10.7 H Immature Gran % (Auto) 0.4 Neut % (Auto) 48.1 Lymph % (Auto) 41.4 [place] % (Auto) 6.6 Eos % (Auto) 2.9 Baso % (Auto) 0.6 Neut # (Auto) 5.80 Lymph # (Auto) 4.99 H [place] # (Auto) 0.79 H Eos # (Auto) 0.35 Baso # (Auto) 0.07 Immature Gran # (Auto) 0.05 H Sodium Potassium Chloride Carbon Dioxide Anion Gap BUN Creatinine Est Cr Clr Drug Dosing Est GFR ( Amer) Est GFR (Non-Af Amer) BUN/Creatinine Ratio Glucose POC Glucose 188 H 154 H Calcium Hepatitis B Ab, Qual Hep Bs Antigen Hep Bs Ag Confirmation Hep Bs Antibody, Quant SARS-CoV-2, RNA, NAAT 08/21/21 08/21/21 08/21/21 05:50 08:08 08:30 WBC RBC Hgb Hct MCV MCH MCHC RDW Std Deviation RDW Coeff of Oj Plt Count MPV Immature Gran % (Auto) Neut % (Auto) Lymph % (Auto) [place] % (Auto) Eos % (Auto) Baso % (Auto) Neut # (Auto) Lymph # (Auto) [place] # (Auto) Eos # (Auto) Baso # (Auto) Immature Gran # (Auto) Sodium 134 L Potassium 4.2 Chloride 101 Carbon Dioxide 25 Anion Gap 8 BUN 35 H Creatinine 4.28 H Est Cr Clr Drug Dosing 9.4 Est GFR ( Amer) 10.3 Est GFR (Non-Af Amer) 8.9 BUN/Creatinine Ratio 8.2 L Glucose 166 H POC Glucose 159 H Calcium 8.0 L Hepatitis B Ab, Qual Hep Bs Antigen Hep Bs Ag Confirmation Hep Bs Antibody, Quant SARS-CoV-2, RNA, NAAT NEGATIVE PG Care Time/CCT Total # of Minutes Spent Total Time Spent with Patient: Total time spent is greater than 50% in coordination of care (as documented) at patient's floor/unit and/or counseling patient: Coding Level of Care Code 40177 Subseq Hosp Care Lvl 3 Diagnoses End-stage renal disease on hemodialysis N18.6; Z99.2 Upper GI bleed K92.2 Coronary disease I25.10 Edema of left upper arm R60.0 Anemia D64.9
[2021-08-21] MEDS: IPRATROPIUM BROMIDE HFA INHALER INH SCH ×3 (11:22→15:43)
[2021-08-21 13:01] VITALS: BP 116/64; PULSE 89
--- NOTE | 2021-08-21 15:16 | Discharge Summary ---
Date of Service August 21, 2021 Admission HPI Per Admitting Provider The patient is a 86-year-old female with a past medical history including ESRD on HD, metastatic breast cancer, CAD, atrial flutter with RVR, PAD, GERD, dysphagia to liquids and solids, gout, diabetes mellitus, pulmonary hypertension, GERD, chronic diastolic CHF, chronic aspiration pneumonia and on chronic anticoagulation. Her son who is with her in the emergency department, serves as the primary source of information, as the patient is unable to contribute to her HPI or ROS. He notes that she is a DNR/DNI, but would except pressors. Notable abnormal laboratories: Hemoglobin 8.4, hematocrit 27.4, total bilirubin 1.4, TSH 20.431, sodium 133, creatinine 3.29, glucose 206, troponin 587.6 and INR 1.3 Chest x-ray shows cardiomegaly and pulmonary edema with a left subclavian hemodialysis line and a right [id number] CT head without contrast was negative Patient was given a Protonix bolus and was started on tonics drip by the emergency department. Principal Diagnosis GI bleed, acute blood loss anemia, left Achilles infected wound, peripheral arterial disease Discharge Exam Constitutional WD/WN, vitals as above Eyes + anicteric sclerae Neck trachea midline, no thyromegaly Respiratory normal respiratory effort, lungs clear to auscultation Cardiovascular RRR, no murmur, no edema Chest (Breasts) Chest: + vascular access device or port (Port right side) Additional Comments: Left side chest with small amount of bruising over previous catheter site, dressing clean dry and intact Gastrointestinal (Abdomen) normal bowel sounds, soft, nontender, no hepatosplenomegaly Musculoskeletal Extremities: extremities normal to inspection; no cyanosis and no clubbing Skin no rashes, warm and dry + lesion (left Achilles with 4 x 2 cm open wound with exudate, no erythema) Neurologic moves all extremities and awake; no focal motor deficits Psychiatric A+Ox3, euthymic affect Orientation: alert, oriented to person and oriented to place Lymphatic no lymphedema Discharge Data Allergies Allergy/AdvReac Type Severity Reaction Status Date / Time cat dander Allergy Intermediate itching Verified 07/29/21 19:50 eyes, blisters pseudoephedrine AdvReac Intermediate Hallucinati Verified 07/29/21 19:50 ons hydroxyzine AdvReac Mild hallucinati Verified 07/29/21 19:50 ons Consultations 07/29/21 20:10 ED Decision to Admit Stat 07/29/21 21:47 Consult Nephrology Routine 07/29/21 23:23 Consult Assistant Pressman Routine 07/30/21 08:18 Consult Gastroenterology Routine 07/30/21 08:24 Consult Cardiology Routine 08/01/21 16:30 Consult Orthopedic Surgery Routine 08/07/21 08:46 Consult Cardiology Routine 08/15/21 06:43 Consult Vascular Surgery Routine Procedures Performed Operation Date: 08/11/21 10:00 Actual Procedures p Angio Extremity Bilateral - Wily Minaya MD p Femoral Popliteal Balloon - Wily Minaya MD s Placement Art Occlusive Device - Wily Minaya MD s SC Select Cath ALEP 3rd Order - Wily Minaya MD s Ultrasound Vascular Access - Wily Minaya MD s Tibial Peroneal Balloon - Wily Minaya MD Operation Date: 08/16/21 13:00 Actual Procedures p Perm Catheter Removal(Left) - Yuan Morris MD Ordered Studies 07/29/21 17:33 CT head/brain wo con Stat 08/04/21 04:22 US venous doppler UE LT Urgent 08/06/21 16:45 US arterial duplex LE LT Routine 08/07/21 16:59 US venous doppler UE LT Routine 08/11/21 07:00 CL Cath Imgs for PACS use only Routine Echocardiogram Hospital Course (1) Ulcer of left heel: Achilles region. 08/01/21 culture with MSSA. Previously on keflex, then Unasyn restarted on 08/08 due to low-grade fever & worsening appearance of the ulcer. Appearance of ulcer continues to improve with resolution of purulent drainage. No surrounding cellulitis. Repeat wound cx with MSSA; no new pathogens. Appreciate Dr Minaya' intervention 08/11/21 - s/p popliteal & GENETIC ENGINEER angioplasty. There is a 2nd tiny ulceration over calcaneal region. Cover the 2nd ulcer with optifoam. continue waffle boots. Wound looks improved on 08/20 from previous pictures Leukocytosis had been resolved but now back up slightly to 12 for 3 days in a row interestingly with an absolute lymphocytosis of almost 5000 which is not related to bacterial infection remains afebrile Cardiology recommended to continue plavix and aspirin for one month status postangioplasty, but since we have restarted Eliquis for Aflutter, then Cardio recommends discontinuing ASA in order to avoid triple therapy -Continue Eliquis and Plavix -Continue lipitor. -Received 7 days of IV unasyn and then PO keflex renally dosed through last day tx 08/21 for total 14 days -Continue local wound care-dressing is to be changed every other day -follow CBC as an outpatient (2) Upper GI bleed: Suspected, at time of admission.Had melanotic stools in the ER Required 2 units PRBCs for lowest Hb of 7.9. H/H much improved since then-now up to 11 and stable Seen by [facility] - endoscopy deferred. Remains on protonix 40 Mg p.o. BID. Eliquis was on hold-has now been resumed and hgb remains stable Plavix restarted 08/02/21. Follow CBC periodically after discharge (3) Lymphocytosis: with WBC count 12 for last 3 consecutive days, with absolute lymphocytosis of almost 5000 could be viral infection vs drug reaction although no evidence of infection at all-afebrile, no new symptoms. Was on antibiotics but those were discontinued after today does have chronic cough and Pertussis can cause lymphocytosis but as per PULM reports, this cough has been present for years? -checked peripheral smear-pathology report impression-increased large granular lymphocytes may be seen in splenectomy, HIV infection, other viral infections, autoimmune disorders, chemotherapy, underlying malignancy, bone marrow/solid organ transplantation and lymphoproliferative disorders (T-cell large granular leukemia). Flow cytometry will be performed. Those results will be separately reported in a [employer] report. I discussed this with her oncology PA, Ms. Leigh Mora who will follow up on the final flow cytometry results after discharge (4) Coronary disease: HORACE to LAD and D1 07/2015. 07/30/2021 echo: Normal LV SF, EF 55-60%, no wall motion abnormalities. Continue Plavix 75 mg every morning and atorvastatin 10 mg daily. Imdur held due to low BPs. Discontinued aspirin now that restarted Eliquis High-sensitivity troponin peaked at 745 -- this was likely 2nd to myocardial demand ischemia rather than ACS. (5) End-stage renal disease on hemodialysis: Appreciate [facility] assistance for HD needs. Schedule M/W/F. Volume status acceptable. Patient's right arm AVF is working well. Now status post removal of left-sided PermCath on 08/16-surgical site left anterior chest is healing well (6) Chronic cough: Present for 2+ years. Has seen pulmonary, ENT and GI for such. Is not on TANVIR or ARB. Previous laryngoscopy in 2020 with supraglottic secretions - aspiration? reflux? post-nasal drip? Some concern of neurogenic cough vs irritative larynx syndrome vs other (cough worse when talking). Previous PFTs with NO obstruction - moderate restriction. Cont atrovent HFA 2 puffs qid PRN. Cont nasacort daily. Was on Tessalon 200mg TID but made this prn since tessalon could be causing altered mentation as it is a weak opioid-mentation seems much improved on 08/16 and 08/17 since discontinuing the Tessalon Her friends were present in the room on 08/18 and reports that her cough is s ignificantly improved from previous However, cough slightly worse again on 08/20--> will restart lower dose of tessalon at 100mg tid prn-use sparingly -consider pertussis testing as above (7) Atrial flutter with rapid ventricular response: a.fib/flutter. converted to NSR last week NSR since. examines in NSR once again today. cont metoprolol 12.5mg BID. Eliquis was on hold initially due to GI bleed, but hemoglobin remained stable- restarted Eliquis on 08/16 (8) Confusion and disorientation: Acute metabolic encephalopathy in setting of underlying dementia/cognitive impairment. Much improved the last several days Cont supportive care. treated wound infection (9) Diabetes: Hba1C 5.5% Had lows over the weekend - resolved with HOLDING LANTUS. Discontinued home long-acting insulin Does not need any diabetes medications as an outpatient at this time (10) Aspiration, chronic pulmonary: per records. multiple swallow evals in the past by speech therapy. no issues at this time. (11) Breast cancer: noted. with mets to ribs based on imaging 04/2021. Her son reports that she has been off of her exemestane and Xgeva-restart these on discharge Follow-up with oncology as an outpatient-has an upcoming appointment in the near future (12) Dysphagia: see #9 above (13) Hypothyroidism: TSH 06/2021 ~20. compliance outside the hospital? Since compliance may have been an issue will leave levothyroxine dose at 150mcg/day and should recheck TSH in 4-6 weeks. (14) PAD (peripheral artery disease): s/p b/l LE arteriogram by Dr Minaya 08/11/21 RLE a-gram wnl. LLE a-gram - popliteal artery and GENETIC ENGINEER occlusions s/p angioplasty by Dr Minaya. No stents. Cont plavix, Eliquis, and statin. pt's son, Dr Narvaez, who practices geriatric medicine in [place]-updated him by phone on 08/16 and again on the day of discharge dispo - [facility]-discharge care today Total Time Total Time Spent Total Time Spent (In Minutes): 45 minutes Discharge Plan Discharge Items Patient Disposition: Transfer Assisted Fac Reason For Visit: CONFUSION,UGI BLEED,HYPOTENSION,NSTEMI,CHF,B/L LE Discharge Diagnosis: Upper GI Bleed, NSTEMI, Acute metabolic encephalopathy, Achilles wound infection, PAD Condition on Discharge: Fair Activity: As commented below Lifting: Gradually increase as tolerated Bathing: No limitations Exercise/Sports: Gradually increase as tolerated Non-emergency contact: Primary Care Provider and Denitrator Call non-emergency contact if: you have any medication questions, your symptoms worsen, you have a fever, your wound has increased redness, your wound has increased drainage and your wound pain has increased Follow-up/Referrals: Tanner López MD [Primary Care Provider] - Yuan Morris MD [Physician] - 09/21/21 9:45 am (Ultrasound 09/14/21 at 1100 Follow up Appt ) Diet: Carb Consistent or DM2 and Dialysis Renal Addtl Attending Provider Instructions: You were admitted with GI bleeding and required blood transfusion. This resolved and you were able to restart your blood thinner. Please continue on the protonix twice a day for GI protection. You were also treated for an infected wound on your Achilles. You had a procedure performed to open up the blood flow to that leg/foot. This is healing nicely and you are all done with the antibiotics now. Please continue dressing changes every other day as per [employer] recommendations. Your white blood cell count has been slightly high lately and you have an elevation in a particular type of white blood cell called a lymphocyte. A special test has been sent out by the lab called Flow Cytometry to ensure that you do not have a leukemia. This will need to be followed up on as an outpatient and you may need to return to see your Door Machine Operator/Oncologist. You had your temporary dialysis catheter removed while you were here and you have follow up scheduled with the Vascular Surgeon. Please continue your usual dialysis on Saturday, Saturday, and Saturday. Pending Studies at Discharge: Yes (Flow Cytometry) Stand-Alone Forms: My [facility] Skilled Items Patient informed of condition?: Yes DNR: No Discharge Level of Care: Skilled Communicable Disease: No Discharge Prognosis: Improving Lines: None Urinary Catheter: No Medications and DC Order Prescriptions: New triamcinolone acetonide [Nasacort] 55 mcg Aerosol,Cosmos 2 spray JUSTIN DAILY Qty: 16.9 RF: 0 metoprolol tartrate 25 mg Tablet 12.5 mg PO BID Qty: 30 RF: 0 pantoprazole 40 mg Tablet,Delayed Release (Dr/Ec) 40 mg PO BID Qty: 60 RF: 0 Continued fluticasone propion-salmeterol [AirDuo RespiClick] 232-14 mcg/actuation aerosol powdr breath activated 1 puffs inhalation QPM Qty: 1 RF: 0 clopidogrel [Plavix] 75 mg tablet 75 mg PO QAM Qty: 90 RF: 0 albuterol sulfate 90 mcg/actuation HFA aerosol inhaler 2 puffs inhalation Q4H PRN (Reason: SOB) Qty: 1 RF: 0 coenzyme Q10 100 mg capsule 100 mg PO QAM RF: 0 docusate sodium 100 mg capsule 100 mg PO HS RF: 0 exemestane [Aromasin] 25 mg tablet 25 mg PO QAM RF: 0 nitroglycerin 0.4 mg tablet, sublingual 0.4 mg SL Q5M PRN (Reason: Chest Pain) Qty: 25 RF: 0 Xgeva 120 mg/1.7 mL (70 mg/mL) solution 120 mg subcut MONTHLY RF: 0 febuxostat 40 mg tablet 40 mg PO QAM RF: 0 albuterol sulfate 1.25 mg/3 mL solution for nebulization 1.25 mg INH Q6H PRN (Reason: cough/wheeze) Qty: 90 RF: 0 famotidine [Acid Comedian (famotidine)] 20 mg tablet 2 mg PO QPM RF: 0 levothyroxine 150 mcg tablet 150 mcg PO QAM RF: 0 pramipexole [Mirapex] 0.25 mg tablet 0.25 mg PO HS RF: 0 melatonin 10 mg Capsule 10 mg PO HS PRN (Reason: Sleep) RF: 0 benzonatate 100 mg capsule 100 mg PO TID PRN (Reason: Cough) RF: 0 atorvastatin 10 mg tablet 10 mg PO HS RF: 0 bumetanide 2 mg tablet 2 mg PO QAM RF: 0 Eliquis 2.5 mg tablet 2.5 mg PO BID RF: 0 Discontinued isosorbide mononitrate 120 mg tablet extended release 24 hr 120 mg PO QAM Qty: 90 RF: 0 pantoprazole 40 mg tablet,delayed release (DR/EC) 40 mg PO QAM RF: 0 Lantus Solostar U-100 Insulin 100 unit/mL (3 mL) insulin pen 25 unit SUBCUT DAILY RF: 0 colchicine 0.6 mg tablet 0.6 mg PO BID PRN (Reason: acute gout flare ups) RF: 0 Discharge Orders: Discharge Order (Routine); Ordered 08/21/21 Ordered By: Cora Herrera Admission Data Admit Date/Time: 07/29/21 21:47 Attending Provider: Cora Herrera Admit Provider: Peter Cruz Primary Care Provider: Tanner López Other Providers: [facility] ; Wily Minaya ; [facility] ; Peter Cruz ; Efren Hatch ; Buddy Babcock ; Jean Claude Wei ; Lucy Juan ; Rupinder Snachez ; Momo Arredondo ; Jermaine Jovel ; Javier Hale ; Tl T[place] ; Aneudy Cagle ; Junior Jurado ; Zack Marlow Jr ; Pb Salas ; Tarah Finn ; Vero Hawk ; Bakari Lagunas ; Nash Reddy ; Radha Veras ; Regine Farr ; Paul Lu ; Trevon Mckeon ; Kris Alcantar ; Hebert Miranda ; Efren Hernandez ; Yuan Morris Other Interventions: Discharge Summary Assessment (RN) Last Done: 08/21/21 15:33 Coding Level of Care Code D/C DAY MANAGEMENT >30 MINS Diagnoses Ulcer of left heel L97.429 Upper GI bleed K92.2 Lymphocytosis D72.820 Coronary disease I25.10 End-stage renal disease on hemodialysis N18.6; Z99.2 Chronic cough R05 Atrial flutter with rapid ventricular response I48.92 Confusion and disorientation R41.0 Diabetes E11.9 Aspiration, chronic pulmonary T17.908A Encounter type: initial encounter Breast cancer C50.919 Dysphagia R13.10 Hypothyroidism E03.9 Hypothyroidism type: unspecified PAD (peripheral artery disease) I73.9
== END 2021-08-21 16:01 | DRG 981 ==
LOC: ED 17:00 → SUATTDRO 21:47 → 1E 21:47 → 2E 07-31 17:24 → 3E 08-12 17:10
PROC: CLB.AEB (2021-08-11 10:00)
DX: R13.10 Dysphagia, unspecified; J45.909 Unspecified asthma, uncomplicated; I27.20 Pulmonary hypertension, unspecified; F03.90 Unspecified dementia, unspecified severity, without behavioral disturbance, psychotic disturbance, mood disturbance, and anxiety; N18.6 End stage renal disease; I48.92 Unspecified atrial flutter; G93.41 Metabolic encephalopathy; E11.22 Type 2 diabetes mellitus with diabetic chronic kidney disease; Z95.5 Presence of coronary angioplasty implant and graft; Z79.4 Long term (current) use of insulin; R57.1 Hypovolemic shock; Z99.2 Dependence on renal dialysis; I50.33 Acute on chronic diastolic (congestive) heart failure; L89.150 Pressure ulcer of sacral region, unstageable; E78.5 Hyperlipidemia, unspecified; I70.244 Atherosclerosis of native arteries of left leg with ulceration of heel and midfoot; C79.51 Secondary malignant neoplasm of bone; E03.9 Hypothyroidism, unspecified; K92.2 Gastrointestinal hemorrhage, unspecified; Z79.890 Hormone replacement therapy; D62 Acute posthemorrhagic anemia; L97.529 Non-pressure chronic ulcer of other part of left foot with unspecified severity; I13.2 Hypertensive heart and chronic kidney disease with heart failure and with stage 5 chronic kidney disease, or end stage renal disease; I25.10 Atherosclerotic heart disease of native coronary artery without angina pectoris; I24.8 Other forms of acute ischemic heart disease; Z66 Do not resuscitate; I48.0 Paroxysmal atrial fibrillation; E11.51 Type 2 diabetes mellitus with diabetic peripheral angiopathy without gangrene; I95.9 Hypotension, unspecified; Z85.3 Personal history of malignant neoplasm of breast; L97.429 Non-pressure chronic ulcer of left heel and midfoot with unspecified severity; Z79.01 Long term (current) use of anticoagulants; B95.61 Methicillin susceptible Staphylococcus aureus infection as the cause of diseases classified elsewhere